=== PATIENT | male | born 1965 | race Caucasian/White ===

== ENCOUNTER 2018-03-18 11:27 | Emergency (ER) | payer MEDICARE, SELFPAY ==
[2018-03-18 11:28] VITALS: BP 194/111; PULSE 93; RESP 16; TEMP 37.1; O2SAT 99; BMI 59.3
[2018-03-18 11:51] LABS: Bedside Glucose 219 mg/dL (70-110)
[2018-03-18 12:35] LABS: Bacteria 0 SEEN /hpf (None Seen); Mucous, Urine 0 SEEN /hpf (<or=2+); Red Blood Cells-Urine 0 SEEN /hpf (0-5); Squamous Epithelial Cells - UA 0 SEEN /hpf (0-5); White Blood Cells 0 SEEN /hpf (0-5)
[2018-03-18] MEDS: morphine 8 MG/ML Syringe IV (12:42)
[2018-03-18] MEDS: Ondansetron 4 MG/2 ML Vial IV (12:42)
[2018-03-18 12:54] LABS: Color, Urine Yellow (Yellow); Glucose, Dipstick 50 mg/dl (Normal); Ketone-Dipstick Negative (Negative); Leukocyte Esterase-Dipstick Negative /ul (Negative); Nitrite-Dipstick Negative (Negative); Occult Blood-Urine Negative /ul (Negative); Protein-Dipstick Negative (Negative); Specific Gravity, Urine 1.015 (1.002-1.030); Urine Bilirubin Dipstick Negative (Negative); Urine Clarity Clear (Clear); Urine Urobilinogen Normal (Normal)
[2018-03-18 12:58] LABS: Anion Gap 9 (5-15); BUN 13 mg/dL (7-18); BUN/Creat Ratio 14.2 RATIO (10-20); Calcium,Total 9.1 mg/dL (8.5-10.1); Chloride 101 mmol/L (98-107); Creatinine, Serum 0.92 mg/dL (0.70-1.30); EST Glomerular Filtration Rate 93 mL/min (>60); Est Glom Filt Rate - Afr Amer 112 mL/min (>60); Estimated Creatinine Clearance 92.93 ml/min; Glucose 217 mg/dL (74-106); Potassium 4.4 mmol/L (3.5-5.1); Sodium Level 135 mmol/L (136-145)
--- NOTE | 2018-03-18 14:08 | ED.VISSUMM ---
- ER Visit Summary Date of Service: 03/18/18 Chief Complaint: Atraumatic right lower back pain History of Present Illness: The patient is a 52 M who presents with atraumatic right lower back pain that started 1 week ago. He denies bowel bladder dysfunction. He denies saddle paresthesia or anesthesia. He denies radicular pain. He denies foot drop. He denies weakness in his thigh muscles going up or down steps. Movement exacerbates his pain. He denies fever, chills or night sweats. He denies weight loss. He denies dysuria, frequency, urgency or hematuria. He denies rash or any skin lesions. Patient does have history of hypertension. States he is compliant with medication and diet. He denies headache. He denies ocular, visual auditory symptoms. Denies trouble with speech or swallowing. He denies cardiac respiratory symptoms. He denies nausea or vomiting. He denies problems with balance or walking. He denies clumsiness or problems with coordination. Physical Examination: Initial blood pressure was 222/122. Head is atraumatic normocephalic. Pupils are equal round reactive. Extraocular muscles are intact. There is no evidence of papilledema on funduscopic exam. TMs are pearly white with landmarks noted. Nares patent with no drainage. Posterior pharynx without erythema or exudate. Uvula is midline. There is no dysphonia or dysphasia. Trachea is midline. There is no stridor with auscultation of the neck. Heart is regular without murmur, gallop or rub. S1 and S2 are normal. Lungs are clear to auscultation with good movement of air bilaterally. Abdomen is soft nontender. Unable to assess for abdominal aneurysm because of body habitus. There is normal perianal sensation. Straight leg test is negative. DTRs at the patella and ankle are 1+ and symmetric. EHL is intact. There is no clonus or Babinski sign. There is reproducible right lower back pain. Test Results: Electrolyte panel is remarkable glucose of 212. Urinalysis unremarkable. There is no evidence of endorgan injury. Emergency Department Course and Treatment: IV was established he was medicated with morphine and Zofran. He was not given NSAIDs because of his medical problems. Treatment Plan: He was reassessed at 1405. Blood pressure has improved to 191/105. He was discharged with prescription for pain medicine and instructed to follow-up with his doctor for blood pressure recheck in 1 week. He was in informed the importance of weight reduction with regards to his overall health. Disposition: Discharged home in stable condition and improved Impression: 1. Right lower back pain without sciatica 2. Hypertension a somatic and a known hypertensive patient. 3. Hyperglycemia in a known type II diabetic This note was generated with [employer] dictation software. It may contain incorrect words, spelling, and punctuation that were not noted in review of the chart prior to signing ED Disposition - Plan for ED Patient: Disposition: Home or Assisted Living Chief Complaint: Back Instructions: ED HTN Established, ED Neck Back Pain General Prescriptions: Hydrocodone Bitart/Apap 5-325 [[place] 5MG-325MG] 1 tab PO Q6H PRN PRN 3 Days #10 tab PRN Reason: Pain Referrals: Care Physician,No Primary [Primary Care Provider] - Trina Matias [NON-STAFF] - Additional Instructions: Follow-up with your doctor to have your blood pressure rechecked in 1 week. It is in your best interest to lose weight over the next several months.
--- NOTE | 2018-03-18 14:12 | ED.DCSUM_ITS ---
- ER Visit Summary Date of Service: 03/18/18 Chief Complaint: Atraumatic right lower back pain History of Present Illness: The patient is a 52 M who presents with atraumatic right lower back pain that started 1 week ago. He denies bowel bladder dysfunction. He denies saddle paresthesia or anesthesia. He denies radicular pain. He denies foot drop. He denies weakness in his thigh muscles going up or down steps. Movement exacerbates his pain. He denies fever, chills or night sweats. He denies weight loss. He denies dysuria, frequency, urgency or hematuria. He denies rash or any skin lesions. Patient does have history of hypertension. States he is compliant with medication and diet. He denies headache. He denies ocular, visual auditory symptoms. Denies trouble with speech or swallowing. He denies cardiac respiratory symptoms. He denies nausea or vomiting. He denies problems with ba greg or walking. He denies clumsiness or problems with coordination. Physical Examination: Initial blood pressure was 222/122. Head is atraumatic normocephalic. Pupils are equal round reactive. Extraocular muscles are intact. There is no evidence of papilledema on funduscopic exam. TMs are pearly white with landmarks noted. Nares patent with no drainage. Posterior ph arynx without erythema or exudate. Uvula is midline. There is no dysphonia or dysphasia. Trachea is midline. There is no stridor with auscultation of the neck. Heart is regular without murmur, gallop or rub. S1 and S2 are normal. Lungs are clear to auscultation with good movement of air bilaterally. Abdomen is soft nontender. Unable to assess for abdominal aneurysm because of body habitus. There is normal perianal sensation. Straight leg test is negative. DTRs at the patella and ankle are 1+ and symmetric. EHL is intact. There is no clonus or Babinski sign. There is reproducible right lower back pain. Test Results: Electrolyte panel is remarkable glucose of 212. Urinalysis unremarkable. There is no evidence of endorgan injury. Emergency Department Course and Treatment: IV was established he was medicated with morphine and Zofran. He was not given NSAIDs because of his medical problems. Treatment Plan: He was reassessed at 1405. Blood pressure has improved to 191/105. He was discharged with prescription for pain medicine and instructed to follow-up with his doctor for blood pressure recheck in 1 week. He was in informed the importance of weight reduction with regards to his overall health. Disposition: Discharged home in stable condition and improved Impression: 1. Right lower back pain without sciatica 2. Hypertension a somatic and a known hypertensive patient. 3. Hyperglycemia in a known type II diabetic This note was generated with [employer] dictation software. It may contain incorrect words, spelling, and punctuation that were not noted in review of the chart prior to signing ED Disposition - Plan for ED Patient: Disposition: Home or Assisted Living Chief Complaint: Back Instructions: ED HTN Established, ED Neck Back Pain General Prescriptions: Hydrocodone Bitart/Apap 5-325 [[place] 5MG-325MG] 1 tab PO Q6H PRN PRN 3 Days #10 tab PRN Reason: Pain Referrals: Care Physician,No Primary [Primary Care Provider] - Trina Matias [NON-STAFF] - Additional Instructions: Follow-up with your doctor to have your blood pressure rechecked in 1 week. It is in your best interest to lose weight over the next several months.
[2018-03-18 14:36] VITALS: BP 129/85; PULSE 70; RESP 17; O2SAT 95
--- NOTE | 2018-03-18 14:37 | ED.RN ---
IV DC'ED, CATHETER INTACT, SMALL GAUZE DRESSING PLACED. DISCHARGE INSTRUCTIONS GIVEN TO AND REVIEWED WITH PATIENT, PATIENT DENIES QUESTIONS OR CONCERNS AND VOICES UNDERSTANDING OF DISCHARGE INSTRUCTIONS. PT AMBULATES OUT OF ROOM WITHOUT DIFFICULTY.
--- OUTSIDE RECORDS SUMMARY | 2018-04-30 03:38 | XMS RPT_ITS ---
:1965 Author Organization [facility] Support Name Relationship Address Phone PATRICIA, HARSHA Unavailable Unavailable + PATRICIA, HARSHA Unavailable Unavailable + PATRICIA, HARSHA Unavailable Unavailable + PATRICIA, HARSHA Unavailable Unavailable + PATRICIA, HARSHA Unavailable Unavailable + PATRICIA, HARSHA Unavailable Unavailable + D Unavailable Unavailable Unavailable CHRISTINE HENRY Unavailable [address] + [place] [address] PATRICIA, HARSHA Unavailable Unavailable + PATRICIA, HARSHA Unavailable Unavailable + PATRICIA, HARSHA Unavailable Unavailable + PATRICIA, HARSHA Unavailable Unavailable + PATRICIA, HARSHA Unavailable Unavailable + PATRICIA, HARSHA Unavailable Unavailable + PATRICIA, HARSHA Unavailable Unavailable + PATRICIA, HARSHA Unavailable Unavailable + PATRICIA, HARSHA Unavailable Unavailable + PATRICIA, HARSHA Unavailable Unavailable + PATRICIA, HARSHA Unavailable Unavailable + PATRICIA, HARSHA Unavailable Unavailable + PATRICIA, HARSHA Unavailable Unavailable + PATRICIA, HARSHA Unavailable Unavailable + PATRICIA, HARSHA Unavailable Unavailable + PATRICIA, HARSHA Unavailable Unavailable + PATRICIA, HARSHA Unavailable Unavailable + HARSHA GOMEZ Unavailable Unavailable + Care Team Providers Name Role Phone DESIRAE BHAGAT CNP Attending Unavailable Javier MARTINEZ DO Primary Care Unavailable DESIRAE HBAGAT CNP Attending Unavailable Javier MARTINEZ DO Primary Care Unavailable Susan Wilkerson MD Attending Unavailable Javier MARTINEZ DO Primary Care Unavailable DESIRAE BHAGAT CNP Attending Unavailable Javier MARTINEZ DO Primary Care Unavailable DESIRAE BHAGAT CNP Attending Unavailable Javier MARTINEZ DO Primary Care Unavailable DESIRAE BHAGAT CNP Attending Unavailable Javier MARTINEZ DO Primary Care Unavailable DESIRAE BHAGAT CNP Attending Unavailable Javier MARTINEZ DO Primary Care Unavailable DESIRAE BHAGAT CNP Attending Unavailable Javier MARTINEZ DO Primary Care Unavailable Primay Care Physicia, No Primary Care Unavailable Torres, Rey Attending Unavailable PROBLEMS PROBLEMS DATE TYPE CONDITION / CODE ATTENDING STATUS SOURCE 03/18/2018 Unknown M54.5 - Low back Torres, Rey Active [facility] M54.5(ICD-10) Hospital Repository 04/25/2017 Admitting Hypothyroidism, OLAYINKA WHIP SAWYER, Active [facility] Diagnosis unspecified / DESIRAE Bermudez Nohemi E03.9(ICD-10) Repository 04/25/2017 Admitting Hyperlipidemia, OLAYINKA WHIP SAWYER, Active [facility] Diagnosis unspecified / DESIRAE Bermudez Nohemi E78.5(ICD-10) Repository 04/25/2017 Admitting Essential OLAYINKA WHIP SAWYER, 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 No known injury.. COMPARISON: Lumbar radiographs, 04/01/2018 FINDINGS: AP, lateral, and swimmer's views of the thoracic spine were acquired. There is mild straightening of the thoracic kyphosis without scoliosis. Vertebral body heights are within normal limits. T here is mild multilevel thoracic spondylosis, greatest in the lower thoracic spine, where there is anterior endplate osteophyte formation. Vacuum phenomenon is identified at the L1-L2 level. IMPRESSION: No compression deformity or significant listhesis. Straightening of the thoracic kyphosis may be positional or related to muscular spasm. I have personally reviewed the images of this examination and agree with the resident's findings and interpretation. Interpreted By: Jonah Mena MD Preliminary Report By: Reza Starkey MD Electronically Signed By: Jonah Mena MD Dictated Date: 04/01/2018 2:08:44 PM Prelim Date: 04/01/2018 4:17:00 PM Sign Date: 04/01/2018 4:28:11 PM XR SPINE LUMBAR Observed: 04/01/2018 Status: F Source: [facility] AP/LAT 12:04 PM [facility] REPOSITORY ORIGINAL XR SPINE LUMBAR AP/LAT CLINICAL STATEMENT: pain COMPARISON: None FINDINGS:5 lumbar type vertebral bodies are present. Vertebral body height is maintained. There is moderate degenerative change at L1-L2 with disc space narrowing and hypertrophic bone formation. There are facet degenerative changes present at the lumbosacral junction. IMPRESSION:Degenerative changes Interpreted By: Kaykay Pineda MD Preliminary Report By: Kaykay Pineda MD Electronically Signed By: Kaykay Pineda MD Dictated Date: 04/01/2018 1:43:50 PM Prelim Date: 04/01/2018 1:43:50 PM Sign Date: 04/01/2018 1:44:13 PM CBC Collected: 03/25/2018 Status: F Source: [place] 9:40 AM [facility] REPOSITORY TYPE CODE TESTS RESULT OUT OF REFERENCE UNITS RANGE LAB WBC(LOINC) 4.60-10.80 10 3/mcL WBC 8.20 LAB RBCCT(LOINC 4.04-6.13 10 6/mcL ) RBC 4.84 LAB HGB(LOINC) 14.0-18.0 G/dL Hgb 15.1 LAB HCT(LOINC) 42.0-52.0 % Hct 45.3 LAB MCV(LOINC) 80.0-94.0 fL MCV 93.5 LAB MCH(LOINC) 27.0-31.2 pg MCH 31.1 LAB MCHC(LOINC) 31.8-35.4 G/dL MCHC 33.3 LAB RDW(LOINC) 11.5-14.5 % RDW 13.1 LAB PLT(LOINC) 130-400 10 3/mcL Platelet 253 LAB MPV(LOINC) 7.4-10.4 fL High MPV 10.7 Performed By: #### CBC, ADIFF, ANEU #### [address] [address] #### TSH, FT4, LIPID, CMP, GFR #### [address] [address] .AUTO DIFF Collected: 03/25/2018 Status: F Source: [facility] 9:40 AM [facility] REPOSITORY TYPE CODE TESTS RESULT OUT OF REFERENCE UNITS RANGE LAB MARILU(LOINC) 37.0-80.0 % Neutrophil % 57.0 LAB LYM(LOINC) 10.0-50.0 % Lymphocyte % 30.6 LAB MON(LOINC) 1.7-13.0 % Monocyte % 7.5 LAB EO(LOINC) 0.0-7.0 % Eosinophil % 4.2 LAB BAS(LOINC) 0.0-2.5 % Basophil % 0.7 LAB ABLYM(LOIN 0.77-3.85 10 3/mcL C) Lymphocyte, 2.50 Absolute LAB ANGIE(LOINC 0.15-1.00 10 3/mcL ) Monocyte, 0.60 Absolute LAB AEOS(LOINC 0.00-0.40 10 3/mcL ) Eosinophil, 0.30 Absolute LAB ABAS(LOINC 0.00-0.19 10 3/mcL ) Basophil, 0.10 Absolute Performed By: #### CBC, ADIFF, ANEU #### [address] [address] #### TSH, FT4, LIPID, CMP, GFR #### [address] [address] .NEUABS Collected: 03/25/2018 Status: F Source: [facility] 9:40 AM [facility] REPOSITORY TYPE CODE TESTS RESULT OUT OF REFERENCE UNITS RANGE LAB ANEU(LOINC) 2.85-6.16 10 3/mcL Neutrophil, 4.60 Absolute Performed By: #### CBC, ADIFF, ANEU #### [address] [address] #### TSH, FT4, LIPID, CMP, GFR #### [address] [address] TSH Collected: 03/25/2018 Status: F Source: [facility] 9:40 AM [facility] REPOSITORY TYPE CODE TESTS RESULT OUT OF RANGE REFERENCE UNITS LAB TSH(LOINC) 0.36-3.74 mcIU/mL High TSH 31.04 Performed By: #### CBC, ADIFF, ANEU #### [address] [address] #### TSH, FT4, LIPID, CMP, GFR #### [place] [address] FT4 Collected: 03/25/2018 Status: F Source: [facility] 9:40 AM [facility] REPOSITORY TYPE CODE TESTS RESULT OUT OF RANGE REFERENCE UNITS LAB FT4(LOINC) 0.76-1.46 ng/dL Free T4 0.96 Performed By: #### CBC, ADIFF, ANEU #### [address] [address] #### TSH, FT4, LIPID, CMP, GFR #### [place] [address] LIPID Collected: 03/25/2018 Status: F Source: [facility] 9:40 AM [facility] REPOSITORY TYPE CODE TESTS RESULT OUT OF REFERENCE UNITS RANGE LAB CHOL(LOINC 0-200 mg/dL ) Cholesterol High 277 Result Comment: Cholesterol Reference Interval: Less than 200 Desirable 200-239 Borderline high risk 240 and above High risk LAB TRIG(LOINC) 0-150 mg/dL Triglycerides High 287 Result Comment: Triglyceride Reference Interval: Less than 150 Normal 150-199 Borderline high risk 200-499 High risk 500 or higher Very high risk LAB HD(LOINC) 40-60 mg/dL HDL Cholesterol 49 LAB LDL(LOINC) 0-130 mg/dL LDL High Cholesterol 171 Performed By: #### CBC, ADIFF, ANEU #### [address] [address] #### TSH, FT4, LIPID, CMP, GFR #### [place] [address] CMP Collected: 03/25/2018 Status: F Source: [facility] 9:40 AM [facility] REPOSITORY TYPE CODE TESTS RESULT OUT OF REFERENCE UNITS RANGE LAB GLU(LOINC) 70-105 mg/dL Glucose High Level 217 LAB NA(LOINC) 136-145 mmol/L Low Sodium Level 135 LAB K(LOINC) 3.5-5.1 mmol/L Potassium Level 4.9 LAB CL(LOINC) 98-107 mmol/L Chloride 99 LAB CO2(LOINC) 22-29 mmol/L CO2 28 LAB EBAL(LOINC mEq/L ) Electrolyte Balance 8.0 LAB BUN(LOINC) 7-18 mg/dL BUN 15 LAB CRE(LOINC) 0.70-1.30 mg/dL Creatinine Lvl (s) 0.94 LAB BC(LOINC) 7-27 ratio BUN/Creatinine 16 Ratio LAB CA(LOINC) 8.4-10.2 mg/dL Calcium Lvl 9.2 LAB PROT(LOINC 6.4-8.2 G/dL ) Total Protein 7.3 LAB ALB(LOINC) 3.5-5.0 G/dL Albumin Level 3.8 LAB GLB(LOINC) G/dL Globulin 3.5 LAB AG(LOINC) 1.1-2.5 ratio A/G Ratio 1.1 LAB BILT(LOINC 0.2-1.0 mg/dL ) Bili Total 0.3 LAB AP(LOINC) 40-135 U/L Alk Phos High 140 LAB AST(LOINC) 10-40 U/L AST/SGOT High 44 LAB ALT(LOINC) 10-35 U/L ALT/SGPT High 74 Performed By: #### CBC, ADIFF, ANEU #### [address] [address] #### TSH, FT4, LIPID, CMP, GFR #### [address] [address] .GFR Collected: 03/25/2018 Status: F Source: [facility] 9:40 AM [facility] REPOSITORY TYPE CODE TESTS RESULT OUT OF REFERENCE UNITS RANGE LAB GFRAA(LOINC ml/min/1.73 ) sqm GFR 103 [place] Result Comment: GFR Population mean for , Non- Americans Ages 20-29 = 116 mL/min/1.73 sq.m. Ages 30-39 = 107 mL/min/1.73 sq.m. Ages 40-49 = 99 mL/min/1.73 sq.m. Ages 50-59 = 93 mL/min/1.73 sq.m. Ages 60-69 = 85 mL/min/1.73 sq.m. Ages 70+ = 75 mL/min/1.73 sq.m. Chronic Kidney Disease: Less than 60 mL/min/1.73 square meters End Stage Renal Disease: Less than 15 mL/min/1.73 square meters LAB GFRNO(LOINC) ml/min/1.73sqm GFR Non- 85 Result Comment: GFR Population mean for , Non- Americans Ages 20-29 = 116 mL/min/1.73 sq.m. Ages 30-39 = 107 mL/min/1.73 sq.m. Ages 40-49 = 99 mL/min/1.73 sq.m. Ages 50-59 = 93 mL/min/1.73 sq.m. Ages 60-69 = 85 mL/min/1.73 sq.m. Ages 70+ = 75 mL/min/1.73 sq.m. Chronic Kidney Disease: Less than 60 mL/min/1.73 square meters End Stage Renal Disease: Less than 15 mL/min/1.73 square meters Performed By: #### CBC, ADIFF, ANEU #### [address] [address] #### TSH, FT4, LIPID, CMP, GFR #### [address] [address] EMERGENCY DEPARTMENT Observed: 03/18/2018 Status: F Source: [place] SUMMARY 2:28 PM [facility] REPOSITORY [facility] Medical Records Department [address] [place] [id number] Emergency Department Summary 03/18/18 1408 MR#: [id number] Acct: [id number] Name: CARLTON GOMEZ Rep #: [id number] : 1965 52 From: Rey Torres MD PCP: Care Physician, No Primary Status: REG ER - ER Visit Summary Date of Service: 03/18/18 Chief Complaint: Atraumatic right lower back pain History of Present Illness: The patient is a 52 M who presents with atraumatic right lower back pain that started 1 week ago. He denies bowel bladder dysfunction. He denies saddle paresthesia or anesthesia. He denies radicular pain. He denies foot drop. He denies weakness in his thigh muscles going up or down steps. Movement exacerbates his pain. He denies fever, chills or night sweats. He denies weight loss. He denies dysuria, frequency, urgency or hematuria. He denies rash or any skin lesions. Patient does have history of hypertension. States he is compliant with medication and diet. He denies headache. He denies ocular, visual auditory symptoms. Denies trouble with speech or swallowing. He denies cardiac respiratory symptoms. He denies nausea or vomiting. He denies problems with balance or walking. He denies clumsiness or problems with coordination. Physical Examination: Initial blood pressure was 222/122. Head is atraumatic normocephalic. Pupils are equal round reactive. Extraocular muscles are intact. There is no evidence of papilledema on funduscopic exam. TMs are pearly white with landmarks noted. Nares patent with no drainage. Posterior pharynx without erythema or exudate. Uvula is midline. There is no dysphonia or dysphasia. Trachea is midline. There is no stridor with auscultation of the neck. Heart is regular without murmur, gallop or rub. S1 and S2 are normal. Lungs are clear to auscultation with good movement of air bilaterally. Abdomen is soft nontender. Unable to assess for abdominal aneurysm because of body habitus. There is normal perianal sensation. Straight leg test is negative. DTRs at the patella and ankle are 1+ and symmetric. EHL is intact. There is no clonus or Babinski sign. There is reproducible right lower back pain. Test Results: Electrolyte panel is remarkable glucose of 212. Urinalysis unremarkable. There is no evidence of endorgan injury. Emergency Department Course and Treatment: IV was established he was medicated with morphine and Zofran. He was not given NSAIDs because of his medical problems. Treatment Plan: He was reassessed at 1405. Blood pressure has improved to 191/105. He was discharged with prescription for pain medicine and instructed to follow-up with his doctor for blood pressure recheck in 1 week. He was in informed the importance of weight reduction with regards to his overall health. Disposition: Discharged home in stable condition and improved Impression: 1. Right lower back pain without sciatica 2. Hypertension a somatic and a known hypertensive patient. 3. Hyperglycemia in a known type II diabetic This note was generated with [employer] dictation software. It may contain incorrect words, spelling, and punctuation that were not noted in review of the chart prior to signing ED Disposition - Plan for ED Patient: Disposition: Home or Assisted Living Chief Complaint: Back Instructions: ED HTN Established, ED Neck Back Pain General Prescriptions: Hydrocodone Bitart/Apap 5-325 [Powell 5MG-325MG] 1 tab PO Q6H PRN PRN 3 Days #10 tab PRN Reason: Pain Referrals: Care Physician,No Primary [Primary Care Provider] - Trina Matias [NON-STAFF] - Additional Instructions: Follow-up with your doctor to have your blood pressure rechecked in 1 week. It is in your best interest to lose weight over the next several months. What to do if you have Problems For any increased pain, shortness of breath, bleeding, nausea or vomiting, chest pain, or any unexpected problems, contact your Primary Care Provider. Call [facility] ([phone]) or report to the closest Emergency Room. Call 911 if necessary. 03/18/18 1428 <Electronically signed by Rey Torres MD> Date Rey Torres MD Cosigner Signature (If Indicated): Date CC: No Primary Care Physician; Trina Matias URINALYSIS, COMPLETE Collected: 03/18/2018 Status: F Source: [place] 12:27 PM [facility] REPOSITORY Order Comment: Order Date: 03/18/18 Has pt arrived? Y How was Urine Obtained? CLEAN CATCH TYPE CODE TESTS RESULT OUT OF RANGE REFERENCE UNITS LAB L400.3000 Yellow COLOR Normal Yellow LAB L400.3050 Clear Normal CLARITY Clear LAB L400.3200 Normal mg/dl High 50 GLUCOSE, UR LAB L400.3300 Negative mg/dL Normal BILIRUBIN URINE Negative LAB L400.3400 Negative mg/dl Normal KETONE UR Negative LAB L400.3465 1.002-1.030 Normal SP.GR. DIPSTX 1.015 LAB L400.3550 5.0 - 8.0 pH UR Normal 5.0 LAB L400.3600 Negative mg/dl PROT Normal DIPSTX Negative LAB L400.3700 Normal mg/dl Normal UROBILI Normal LAB L400.3750 Negative Normal NITRITE UR Negative LAB L400.3780 Negative /ul Normal OCCULT BLOOD-UR Negative LAB L400.3800 Negative /ul LEUK Normal ESTERASE Negative LAB L400.4050 0-5 /hpf WBC 0 Normal SEEN LAB L400.4100 0-5 /hpf 0 Normal RBC-UA SEEN LAB L400.4150 0-5 /hpf SQUAM 0 Normal EPI SEEN LAB L400.4300 None Seen /hpf 0 Normal BACTERIA SEEN LAB L400.4350 <or=2+ /hpf 0 Normal MUCUS, URINE SEEN Performed By: #### L400.0001 #### [facility] [address] [place], [address] BASIC METABOLIC Collected: 03/18/2018 Status: F Source: [place] PROFILE (BMP) 12:27 PM [facility] REPOSITORY TYPE CODE TESTS RESULT OUT OF RANGE REFERENCE UNITS LAB L501.0100 74-106 mg/dL High GLU 217 Result Comment: Glucose result greater than or equal to 200 mg/dL suggests DIABETES MELLITUS per A.D.A. criteria. Please note revised GLUCOSE reference range effective 2017. LAB L501.1000 7-18 mg/dL Normal BUN 13 LAB L501.1100 0.70-1.30 mg/dL Normal CREAT,SERUM 0.92 Result Comment: The validity of the calculated GFR AND GFRAA in patients over 70 years has not been determined. Clinical correlation is essential. LAB L501.1110 >60 mL/min Normal EST GFR 93 Result Comment: Non- GFR Calc LAB L501.1115 >60 mL/min Normal EST GFR - AA 112 Result Comment: GFR Calc LAB L501.1255 ml/min Normal Estimated CRCL 92.93 LAB L501.1300 10-20 RATIO Normal BUN/CRE 14.2 LAB L501.2200 8.5-10 mg/dL Normal .1 CA 9.1 LAB L501.5300 136-14 mmol/L Low 5 NA 135 LAB L501.5600 3.5-5. mmol/L Normal 1 K 4.4 Result Comment: Slight Hemolysis, Result may be falsely increased. LAB L501.5900 98-107 mmol/L Normal CL 101 LAB L501.6100 21.0-32.0 mmol/L Normal CO2 25.0 LAB L501.6200 5-15 Normal 9 GAP Performed By: #### L500.2500 #### [facility] [address] [place], [place], [address] BEDSIDE GLUCOSE Collected: 03/18/2018 Status: F Source: [place] 11:42 AM [facility] REPOSITORY TYPE CODE TESTS RESULT OUT OF REFERENCE UNITS RANGE LAB L501.080 70-110 mg/dL High BEDSIDE GLU 219 Result Comment: MANAGEMENT OF PATIENT CARE PER NURSING PROTOCOL Performed By: #### L501.080 #### [facility] Point of Care [address] [place], [place] [id number] CBC Collected: 12/12/2017 Status: F Source: [facility] 9:20 AM [facility] REPOSITORY TYPE CODE TESTS RESULT OUT OF REFERENCE UNITS RANGE LAB WBC(LOINC) 4.60-10.80 10 3/mcL WBC 10.50 LAB RBCCT(LOINC 4.04-6.13 10 6/mcL ) RBC 4.93 LAB HGB(LOINC) 14.0-18.0 G/dL Hgb 15.3 LAB HCT(LOINC) 42.0-52.0 % Hct 45.4 LAB MCV(LOINC) 80.0-94.0 fL MCV 91.9 LAB MCH(LOINC) 27.0-31.2 pg MCH 31.1 LAB MCHC(LOINC) 31.8-35.4 G/dL MCHC 33.8 LAB RDW(LOINC) 11.5-14.5 % RDW 13.7 LAB PLT(LOINC) 130-400 10 3/mcL Platelet 319 LAB MPV(LOINC) 7.4-10.4 fL MPV 10.0 Performed By: #### CBCELISA ANEU #### [address] [address] #### CMP, LIPID, GFR, TSH, FT4 #### [place] [address] .AUTO DIFF Collected: 12/12/2017 Status: F Source: [facility] 9:20 AM [facility] REPOSITORY TYPE CODE TESTS RESULT OUT OF REFERENCE UNITS RANGE LAB MARILU(LOINC) 37.0-80.0 % Neutrophil % 52.9 LAB LYM(LOINC) 10.0-50.0 % Lymphocyte % 34.8 LAB MON(LOINC) 1.7-13.0 % Monocyte % 8.6 LAB EO(LOINC) 0.0-7.0 % Eosinophil % 2.7 LAB BAS(LOINC) 0.0-2.5 % Basophil % 1.0 LAB ABLYM(LOIN 0.77-3.85 10 3/mcL C) Lymphocyte, 3.60 Absolute LAB ANGIE(LOINC 0.15-1.00 10 3/mcL ) Monocyte, 0.90 Absolute LAB AEOS(LOINC 0.00-0.40 10 3/mcL ) Eosinophil, 0.30 Absolute LAB ABAS(LOINC 0.00-0.19 10 3/mcL ) Basophil, 0.10 Absolute Performed By: #### CBC, ADIFF, ANEU #### [place] [address] #### CMP, LIPID, GFR, TSH, FT4 #### [place] [address] .NEUABS Collected: 12/12/2017 Status: F Source: [facility] 9:20 AM [facility] REPOSITORY TYPE CODE TESTS RESULT OUT OF REFERENCE UNITS RANGE LAB ANEU(LOINC) 2.85-6.16 10 3/mcL Neutrophil, 5.60 Absolute Performed By: #### CBC, ADIFF, ANEU #### [address] [address] #### CMP, LIPID, GFR, TSH, FT4 #### [place] [address] CMP Collected: 12/12/2017 Status: F Source: [facility] 9:20 AM [facility] REPOSITORY TYPE CODE TESTS RESULT OUT OF REFERENCE UNITS RANGE LAB GLU(LOINC) 70-105 mg/dL Glucose High Level 161 LAB NA(LOINC) 136-145 mmol/L Sodium Level 139 LAB K(LOINC) 3.5-5.1 mmol/L Potassium Level 5.0 LAB CL(LOINC) 98-107 mmol/L Chloride 101 LAB CO2(LOINC) 22-29 mmol/L CO2 28 LAB EBAL(LOINC mEq/L ) Electrolyte Balance 10.0 LAB BUN(LOINC) 7-18 mg/dL BUN 17 LAB CRE(LOINC) 0.70-1.30 mg/dL Creatinine Lvl (s) 0.99 LAB BC(LOINC) 7-27 ratio BUN/Creatinine 17 Ratio LAB CA(LOINC) 8.4-10.2 mg/dL Calcium Lvl 9.8 LAB PROT(LOINC 6.4-8.2 G/dL ) Total Protein 7.4 LAB ALB(LOINC) 3.5-5.0 G/dL Albumin Level 3.9 LAB GLB(LOINC) G/dL Globulin 3.5 LAB AG(LOINC) 1.1-2.5 ratio A/G Ratio 1.1 LAB BILT(LOINC 0.2-1.0 mg/dL ) Bili Total 0.5 LAB AP(LOINC) 40-135 U/L Alk Phos 126 LAB AST(LOINC) 10-40 U/L AST/SGOT 28 LAB ALT(LOINC) 10-35 U/L ALT/SGPT High 52 Performed By: #### CBC, ADIFF, ANEU #### [address] [address] #### CMP, LIPID, GFR, TSH, FT4 #### [address] [address] LIPID Collected: 12/12/2017 Status: F Source: [facility] 9:20 AM [facility] REPOSITORY TYPE CODE TESTS RESULT OUT OF REFERENCE UNITS RANGE LAB CHOL(LOINC 0-200 mg/dL ) Cholesterol High 246 Result Comment: Cholesterol Reference Interval: Less than 200 Desirable 200-239 Borderline high risk 240 and above High risk LAB TRIG(LOINC) 0-150 mg/dL Triglycerides High 246 Result Comment: Triglyceride Reference Interval: Less than 150 Normal 150-199 Borderline high risk 200-499 High risk 500 or higher Very high risk LAB HD(LOINC) 40-60 mg/dL HDL Cholesterol 51 LAB LDL(LOINC) 0-130 mg/dL LDL High Cholesterol 146 Performed By: #### CBC, ADIFF, ANEU #### [place] [id number] [place], [place] [address] #### CMP, LIPID, GFR, TSH, FT4 #### [address] [address] .GFR Collected: 12/12/2017 Status: F Source: [facility] 9:20 AM [facility] REPOSITORY TYPE CODE TESTS RESULT OUT OF REFERENCE UNITS RANGE LAB GFRAA(LOINC ml/min/1.73 ) sqm GFR 97 [place] Result Comment: GFR Population mean for , Non- Americans Ages 20-29 = 116 mL/min/1.73 sq.m. Ages 30-39 = 107 mL/min/1.73 sq.m. Ages 40-49 = 99 mL/min/1.73 sq.m. Ages 50-59 = 93 mL/min/1.73 sq.m. Ages 60-69 = 85 mL/min/1.73 sq.m. Ages 70+ = 75 mL/min/1.73 sq.m. Chronic Kidney Disease: Less than 60 mL/min/1.73 square meters End Stage Renal Disease: Less than 15 mL/min/1.73 square meters LAB GFRNO(LOINC) ml/min/1.73sqm GFR Non- 80 Result Comment: GFR Population mean for , Non- Americans Ages 20-29 = 116 mL/min/1.73 sq.m. Ages 30-39 = 107 mL/min/1.73 sq.m. Ages 40-49 = 99 mL/min/1.73 sq.m. Ages 50-59 = 93 mL/min/1.73 sq.m. Ages 60-69 = 85 mL/min/1.73 sq.m. Ages 70+ = 75 mL/min/1.73 sq.m. Chronic Kidney Disease: Less than 60 mL/min/1.73 square meters End Stage Renal Disease: Less than 15 mL/min/1.73 square meters Performed By: #### CBC, ADIFF, ANEU #### [place] [id number] [place], [place] [address] #### CMP, LIPID, GFR, TSH, FT4 #### [address] [address] TSH Collected: 12/12/2017 Status: F Source: [facility] 9:20 AM [facility] REPOSITORY TYPE CODE TESTS RESULT OUT OF RANGE REFERENCE UNITS LAB TSH(LOINC) 0.36-3.74 mcIU/mL High TSH 26.90 Performed By: #### CBC, ADIFF, ANEU #### [address] [address] #### CMP, LIPID, GFR, TSH, FT4 #### [address] [address] FT4 Collected: 12/12/2017 Status: F Source: [facility] 9:20 AM [facility] REPOSITORY TYPE CODE TESTS RESULT OUT OF RANGE REFERENCE UNITS LAB FT4(LOINC) 0.76-1.46 ng/dL Free T4 0.89 Performed By: #### CBC, ADIFF, ANEU #### [address] [address] #### CMP, LIPID, GFR, TSH, FT4 #### [address] [address] .GFR Collected: 07/25/2017 Status: F Source: [facility] 9:35 AM [facility] REPOSITORY TYPE CODE TESTS RESULT OUT OF REFERENCE UNITS RANGE LAB GFRAA(LOINC ml/min/1.73 ) sqm GFR 86 [place] Result Comment: GFR Population mean for , Non- Americans Ages 20-29 = 116 mL/min/1.73 sq.m. Ages 30-39 = 107 mL/min/1.73 sq.m. Ages 40-49 = 99 mL/min/1.73 sq.m. Ages 50-59 = 93 mL/min/1.73 sq.m. Ages 60-69 = 85 mL/min/1.73 sq.m. Ages 70+ = 75 mL/min/1.73 sq.m. Chronic Kidney Disease: Less than 60 mL/min/1.73 square meters End Stage Renal Disease: Less than 15 mL/min/1.73 square meters LAB GFRNO(LOINC) ml/min/1.73sqm GFR Non- >60 Result Comment: GFR Population mean for , Non- Americans Ages 20-29 = 116 mL/min/1.73 sq.m. Ages 30-39 = 107 mL/min/1.73 sq.m. Ages 40-49 = 99 mL/min/1.73 sq.m. Ages 50-59 = 93 mL/min/1.73 sq.m. Ages 60-69 = 85 mL/min/1.73 sq.m. Ages 70+ = 75 mL/min/1.73 sq.m. Chronic Kidney Disease: Less than 60 mL/min/1.73 square meters End Stage Renal Disease: Less than 15 mL/min/1.73 square meters Performed By: #### GFR, CMP, LIPID, CBC, ADIFF, ANEU, TSH #### [address] [address] CMP Collected: 07/25/2017 Status: F Source: [facility] 9:35 AM FOUNDATION REPOSITORY TYPE CODE TESTS RESULT OUT OF REFERENCE UNITS RANGE LAB 1547-9 70-105 mg/dL GLUCOSE High 154 LAB NA(LOINC) 136-146 mEq/L Sodium Level 139 LAB K(LOINC) 3.5-5.1 mEq/L Potassium Level 4.6 LAB CL(LOINC) 98-107 mEq/L Chloride 100 LAB CO2(LOINC) 22-29 mEq/L CO2 27 LAB EBAL(LOINC mEq/L ) Electrolyte Balance 12.0 LAB BUN(LOINC) 7.0-18.0 mg/dL BUN 17.8 LAB CRE(LOINC) 0.6-1.2 mg/dL Creatinine Lvl (s) 1.1 LAB BC(LOINC) 7-27 ratio BUN/Creatinine 16 Ratio LAB CA(LOINC) 8.4-10.2 mg/dL Calcium Lvl 10.0 LAB PROT(LOINC 6.0-8.3 G/dL ) Total Protein 7.1 LAB ALB(LOINC) 3.5-5.0 G/dL Albumin Level 4.3 LAB GLB(LOINC) G/dL Globulin 2.8 LAB AG(LOINC) 1.1-2.5 ratio A/G Ratio 1.5 LAB BILT(LOINC 0.2-1.0 mg/dL ) Bili Total 0.4 LAB AP(LOINC) 40-135 IU/L Alk Phos 130 LAB AST(LOINC) 10-40 IU/L AST/SGOT 27 LAB ALT(LOINC) 10-35 IU/L ALT/SGPT 35 Performed By: #### GFR, CMP, LIPID, CBC, ADIFF, ANEU, TSH #### [address] [place], [place] [address] LIPID Collected: 07/25/2017 Status: F Source: [facility] 9:35 AM [facility] REPOSITORY TYPE CODE TESTS RESULT OUT OF REFERENCE UNITS RANGE LAB CHOL(LOINC 131-200 mg/dL ) Cholesterol High 212 Result Comment: Cholesterol Reference Interval: Less than 200 Desirable 200-239 Borderline high risk 240 and above High risk LAB TRIG(LOINC) 40-150 mg/dL Triglycerides High 181 Result Comment: Triglyceride Reference Interval: Less than 150 Normal 150-199 Borderline high risk 200-499 High risk 500 or higher Very high risk LAB HD(LOINC) 35-90 mg/dL HDL Cholesterol 55 Result Comment: HDL Reference Interval: Less than 40 Low - high risk 60 or above Optimal/lowers risk LAB LDL(LOINC) 0-130 mg/dL LDL Cholesterol 121 Result Comment: LDL is a calculated result and requires a 12-hr fast. LDL Reference Interval: Less than 100 Optimal 100-129 Near or above optimal 130-159 Borderline high risk 160-189 High risk 190 and above Very high risk Performed By: #### GFR, CMP, LIPID, CBC, ADIFF, ANEU, TSH #### [address] [place], [place] [address] CBC Collected: 07/25/2017 Status: F Source: [facility] 9:35 AM [facility] REPOSITORY TYPE CODE TESTS RESULT OUT OF REFERENCE UNITS RANGE LAB WBC(LOINC) 4.60-10.80 10 3/mcL WBC 8.20 LAB RBCCT(LOINC 4.04-6.13 10 6/mcL ) RBC 5.01 LAB HGB(LOINC) 14.0-18.0 G/dL Hgb 15.4 LAB HCT(LOINC) 42.0-52.0 % Hct 45.8 LAB MCV(LOINC) 80.0-94.0 fL MCV 91.3 LAB MCH(LOINC) 27.0-31.2 pg MCH 30.6 LAB MCHC(LOINC) 31.8-35.4 G/dL MCHC 33.6 LAB RDW(LOINC) 11.5-14.5 % RDW 13.0 LAB PLT(LOINC) 130-400 10 3/mcL Platelet 302 LAB MPV(LOINC) 7.4-10.4 fL High MPV 10.5 Performed By: #### GFR, CMP, LIPID, CBC, ADIFF, ANEU, TSH #### [place] [address] [place], [place] [address] .AUTO DIFF Collected: 07/25/2017 Status: F Source: [facility] 9:35 AM [facility] REPOSITORY TYPE CODE TESTS RESULT OUT OF REFERENCE UNITS RANGE LAB MARILU(LOINC) 37.0-80.0 % Neutrophil % 54.8 LAB LYM(LOINC) 10.0-50.0 % Lymphocyte % 31.8 LAB MON(LOINC) 1.7-13.0 % Monocyte % 9.5 LAB EO(LOINC) 0.0-7.0 % Eosinophil % 3.2 LAB BAS(LOINC) 0.0-2.5 % Basophil % 0.7 LAB ABLYM(LOIN 0.77-3.85 10 3/mcL C) Lymphocyte, 2.60 Absolute LAB ANGIE(LOINC 0.15-1.00 10 3/mcL ) Monocyte, 0.80 Absolute LAB AEOS(LOINC 0.00-0.40 10 3/mcL ) Eosinophil, 0.30 Absolute LAB ABAS(LOINC 0.00-0.19 10 3/mcL ) Basophil, 0.10 Absolute Performed By: #### GFR, CMP, LIPID, CBC, ADIFF, ANEU, TSH #### [address] [address] .NEUABS Collected: 07/25/2017 Status: F Source: [facility] 9:35 AM [facility] REPOSITORY TYPE CODE TESTS RESULT OUT OF REFERENCE UNITS RANGE LAB ANEU(LOINC) 2.85-6.16 10 3/mcL Neutrophil, 4.50 Absolute Performed By: #### GFR, CMP, LIPID, CBC, ADIFF, ANEU, TSH #### [id number] [place], [place] [address] TSH Collected: 07/25/2017 Status: F Source: [facility] 9:35 AM [facility] REPOSITORY TYPE CODE TESTS RESULT OUT OF RANGE REFERENCE UNITS LAB TSH(LOINC) 0.27-4.20 mcIU/mL TSH 0.63 Performed By: #### GFR, CMP, LIPID, CBC, ADIFF, ANEU, TSH #### [place] [address] [place], [place] [address] US THYROID Observed: 05/01/2017 Status: F Source: [facility] 9:30 AM [facility] REPOSITORY ORIGINAL Ultrasound Thyroid CLINICAL STATEMENT: HYPOTHYROIDISM, COMPARISON: None FINDINGS: The quality of the study is degraded due to patient body habitus. Size right thyroid lobe: 4.9 x 1.3 x 1.6 cm Size left thyroid lobe: 4.7 x 1.5 x 1.3 cm Size isthmus: 3 mm Texture: Heterogenous Estimated total number of nodules greater than or equal to 1 cm: 0 Number of spongiform nodules >/= 2 cm not described below (TR1): 0 Number of mixed cystic and solid nodules >/= 1.5 cm not described below (TR2): 0 IMPRESSION: Heterogenous nonenlarged thyroid without discrete nodularity. I have personally reviewed the images of this examination and agree with the resident's findings and interpretation. Interpreted By: Dafne Jalloh MD Preliminary Report By: Candido Mansfield MD Electronically Signed By: Dafne Jalloh MD Dictated Date: 05/01/2017 3:51:01 PM Prelim Date: 05/01/2017 4:38:47 PM Sign Date: 05/01/2017 4:53:29 PM CBC Collected: 04/25/2017 Status: F Source: [facility] 9:20 AM [facility] REPOSITORY TYPE CODE TESTS RESULT OUT OF REFERENCE UNITS RANGE LAB WBC(LOINC) 4.60-10.80 10 3/mcL WBC 10.10 LAB RBCCT(LOINC 4.04-6.13 10 6/mcL ) RBC 5.22 LAB HGB(LOINC) 14.0-18.0 G/dL Hgb 15.7 LAB HCT(LOINC) 42.0-52.0 % Hct 48.2 LAB MCV(LOINC) 80.0-94.0 fL MCV 92.4 LAB MCH(LOINC) 27.0-31.2 pg MCH 30.1 LAB MCHC(LOINC) 31.8-35.4 G/dL MCHC 32.5 LAB RDW(LOINC) 11.5-14.5 % RDW 12.7 LAB PLT(LOINC) 130-400 10 3/mcL Platelet 274 LAB MPV(LOINC) 7.4-10.4 fL MPV 10.2 Performed By: #### CBC, ADIFF, ANEU, CMP, LIPID, GFR, TSH #### [address] [address] .AUTO DIFF Collected: 04/25/2017 Status: F Source: [facility] 9:20 AM [facility] REPOSITORY TYPE CODE TESTS RESULT OUT OF REFERENCE UNITS RANGE LAB MARILU(LOINC) 37.0-80.0 % Neutrophil % 60.4 LAB LYM(LOINC) 10.0-50.0 % Lymphocyte % 24.8 LAB MON(LOINC) 1.7-13.0 % Monocyte % 8.7 LAB EO(LOINC) 0.0-7.0 % Eosinophil % 5.3 LAB BAS(LOINC) 0.0-2.5 % Basophil % 0.8 LAB ABLYM(LOIN 0.77-3.85 10 3/mcL C) Lymphocyte, 2.50 Absolute LAB ANGIE(LOINC 0.15-1.00 10 3/mcL ) Monocyte, 0.90 Absolute LAB AEOS(LOINC 0.00-0.40 10 3/mcL ) High Eosinophil, 0.50 Absolute LAB ABAS(LOINC 0.00-0.19 10 3/mcL ) Basophil, 0.10 Absolute Performed By: #### CBC, ADIFF, ANEU, CMP, LIPID, GFR, TSH #### [address] [address] .NEUABS Collected: 04/25/2017 Status: F Source: [facility] 9:20 AM [facility] REPOSITORY TYPE CODE TESTS RESULT OUT OF REFERENCE UNITS RANGE LAB ANEU(LOINC) 2.85-6.16 10 3/mcL Neutrophil, 6.10 Absolute Performed By: #### CBC, ADIFF, ANEU, CMP, LIPID, GFR, TSH #### [address] [address] CMP Collected: 04/25/2017 Status: F Source: [facility] 9:20 AM [facility] REPOSITORY TYPE CODE TESTS RESULT OUT OF REFERENCE UNITS RANGE LAB 1547-9 70-105 mg/dL GLUCOSE High 152 LAB NA(LOINC) 136-146 mEq/L Sodium Level 139 LAB K(LOINC) 3.5-5.1 mEq/L Potassium Level 4.9 LAB CL(LOINC) 98-107 mEq/L Chloride 100 LAB CO2(LOINC) 22-29 mEq/L CO2 28 LAB EBAL(LOINC mEq/L ) Electrolyte Balance 11.0 LAB BUN(LOINC) 7.0-18.0 mg/dL BUN High 20.0 LAB CRE(LOINC) 0.6-1.2 mg/dL Creatinine Lvl (s) 0.9 LAB BC(LOINC) 7-27 ratio BUN/Creatinine 22 Ratio LAB CA(LOINC) 8.4-10.2 mg/dL Calcium Lvl 9.5 LAB PROT(LOINC 6.0-8.3 G/dL ) Total Protein 7.1 LAB ALB(LOINC) 3.5-5.0 G/dL Albumin Level 4.2 LAB GLB(LOINC) G/dL Globulin 2.9 LAB AG(LOINC) 1.1-2.5 ratio A/G Ratio 1.4 LAB BILT(LOINC 0.2-1.0 mg/dL ) Bili Total 0.4 LAB AP(LOINC) 40-135 IU/L Alk Phos High 137 LAB AST(LOINC) 10-40 IU/L AST/SGOT 32 LAB ALT(LOINC) 10-35 IU/L ALT/SGPT High 41 Performed By: #### CBC, ADIFF, ANEU, CMP, LIPID, GFR, TSH #### [address] [address] LIPID Collected: 04/25/2017 Status: F Source: [facility] 9:20 AM [facility] REPOSITORY TYPE CODE TESTS RESULT OUT OF REFERENCE UNITS RANGE LAB CHOL(LOINC 131-200 mg/dL ) Cholesterol High 237 Result Comment: Cholesterol Reference Interval: Less than 200 Desirable 200-239 Borderline high risk 240 and above High risk LAB TRIG(LOINC) 40-150 mg/dL Triglycerides High 194 Result Comment: Triglyceride Reference Interval: Less than 150 Normal 150-199 Borderline high risk 200-499 High risk 500 or higher Very high risk LAB HD(LOINC) 35-90 mg/dL HDL Cholesterol 55 Result Comment: HDL Reference Interval: Less than 40 Low - high risk 60 or above Optimal/lowers risk LAB LDL(LOINC) 0-130 mg/dL LDL High Cholesterol 143 Result Comment: LDL is a calculated result and requires a 12-hr fast. LDL Reference Interval: Less than 100 Optimal 100-129 Near or above optimal 130-159 Borderline high risk 160-189 High risk 190 and above Very high risk Performed By: #### CBC, ADIFF, ANEU, CMP, LIPID, GFR, TSH #### [address] [address] .GFR Collected: 04/25/2017 Status: F Source: [facility] 9:20 AM [facility] REPOSITORY TYPE CODE TESTS RESULT OUT OF REFERENCE UNITS RANGE LAB GFRAA(LOINC ml/min/1.73 ) sqm GFR 105 [place] Result Comment: GFR Population mean for , Non- Americans Ages 20-29 = 116 mL/min/1.73 sq.m. Ages 30-39 = 107 mL/min/1.73 sq.m. Ages 40-49 = 99 mL/min/1.73 sq.m. Ages 50-59 = 93 mL/min/1.73 sq.m. Ages 60-69 = 85 mL/min/1.73 sq.m. Ages 70+ = 75 mL/min/1.73 sq.m. Chronic Kidney Disease: Less than 60 mL/min/1.73 square meters End Stage Renal Disease: Less than 15 mL/min/1.73 square meters LAB GFRNO(LOINC) ml/min/1.73sqm GFR Non- >60 Result Comment: GFR Population mean for , Non- Americans Ages 20-29 = 116 mL/min/1.73 sq.m. Ages 30-39 = 107 mL/min/1.73 sq.m. Ages 40-49 = 99 mL/min/1.73 sq.m. Ages 50-59 = 93 mL/min/1.73 sq.m. Ages 60-69 = 85 mL/min/1.73 sq.m. Ages 70+ = 75 mL/min/1.73 sq.m. Chronic Kidney Disease: Less than 60 mL/min/1.73 square meters End Stage Renal Disease: Less than 15 mL/min/1.73 square meters Performed By: #### CBC, ADIFF, ANEU, CMP, LIPID, GFR, TSH #### [address] [place], [place] [address] TSH Collected: 04/25/2017 Status: F Source: [facility] 9:20 AM [facility]OUNDATION REPOSITORY TYPE CODE TESTS RESULT OUT OF RANGE REFERENCE UNITS LAB TSH(LOINC) 0.27-4.20 mcIU/mL High TSH 8.11 Result Comment: Above normal(expected)range Performed By: #### CBC, ADIFF, ANEU, CMP, LIPID, GFR, TSH #### [address] [place], [place] [address] ALLERGIES ALLERGIES DATE TYPE / CODE NAME / CODE REACTION SEVERITY SOURCE 03/18/2018 Drug No Known Unknown [facility] Allergy/4160 Allergies/F00 [facility] [address](SNOMED 1609062(RXNOR Repository CT) M) ENCOUNTERS ENCOUNTERS ADMIT/DISCHARGE ACCOUNT NUMBER ADMITTING ENCOUNTER LOCATION SOURCE CLASS 04/01/2018/04/01/20 [id number] Ambulatory BBuilding:RA Lindsay Pulliam [facility] Repository 03/25/2018/03/29/20 [id number] Ambulatory BBuilding:DR Montoya [address] [place] [address] Repository 03/18/2018/03/18/20 [id number] Emergency [address] ding:ED Repository 01/09/2018 [id number] Ambulatory BBuilding:RA Lindsay Pulliam [facility] Repository 12/12/2017/12/17/19 [id number] Ambulatory LINDSAY [address] ding:TIM [facility] Emergency Department Repository 07/25/2017/07/30/19 [id number] Ambulatory [address] ding:TIM [facility] Repository 06/27/2017/06/28/19 [id number] Emergency BBuilding:RAYMOND Merritt [facility] Repository 05/01/2017/05/01/19 [id number] Ambulatory [address] ding:[facility] Repository 04/25/2017/04/29/19 [id number] Ambulatory [address] ding:[employer] [facility] Department Repository PAYERS PAYERS ENCOUNTER GUARANTOR PAYER SUBSCRIBER SOURCE 04/01/2018 CARLTON Prince [facility] Insurance:MEDICARE WINESDOB: [facility] N PART B INSCOPolicy [id number] Repository [address] Number: [address] [place] [id number] [place], [place] [address]Ujw: (000) Date:2018-04-01 [address]Trl: (WP) [id number] 000-0000 (WP) Name:[facility] Administrators [facility] [address] [place] [address]UK: 03/25/2018 CARLTON A Primary CARLTON Montoya [facility] WINESDOB: Insurance:MEDICARE WINESDOB: [facility] N PART B INSCOPolicy [id number] Repository [address] Number: [address] [place] [id number] [place], [place] [address]Rpe: ([phone]) Date:2018-03-2587322Njm: [id number] [phone] ()Tel: (000) Name:[facility] () () Administrators [facility] 000-0000 () [address] [place] [address]YH: 03/18/2018 CARLTON Prince WINES59 Primary CARLTON A Belia [address] Insurance:MEDICARE WINESDOB: [facility] [place] PART A BPolicy [id number] [address]Gcl: (330) Number: Repository [phone] () [id number] Date:2018-03-18 03/18/2018 Secondary NOT GIVENUNK [place] Insurance:SELF PAY [facility] Number: Effective Repository Date:2018-03-18 01/09/2018 CARLTON A Primary [facility]: Insurance:MEDICARE WINESDOB: [facility] N PART BPolicy Number: [id number] Repository [id number] [address] [place], [place] Date:2017-12-26 - [place], [place] [address]Wrz: [phone] [id number]: Name:[facility] 425[facility] (HP)Tel: (000) Administrators [facility] ([place]) (WP) [address] [address]Ktbioxvaq, 000-0000 (WP) [place] [address]BR: 12/12/2017 CARLTON A Primary [facility]: Insurance:MEDICARE WINESDOB: [facility] N PART BPolicy Number: [id number] Repository [id number] [address] [place], [place] Date:2017-12-12 - [place], [place] [address]Bqv: [phone] [id number]: Name:[place] [address] ([place])Tel: (000) Administrators [facility] (HP) (WP) [address] [address]Atfswtllu, 000-0000 (WP) [place] [address]FF: 07/25/2017 CARLTON A Primary CARLTON Montoya [facility] WINESDOB: Insurance:MEDICARE WINESDOB: [facility] N PART BPolicy Number: [id number] Repository [address] [id number] [address] [place], [place] Date:2017-07-25 - [place], [place] [address]Hzd: [phone] [id number]: Name:[facility] 425[facility]8 (HP)Tel: (000) Administrators [facility] ([place]) (WP) [address] [address]Wpaurucem, 000-0000 (WP) [place] [address]PH: 06/27/2017 CARLTON A Primary CARLTON Montoya [facility] WINESDOB: Insurance:MEDICARE WINESDOB: [facility] N PART BPolicy Number: [id number] Repository [id number] [address] [place], [place] Date:2017-06-27 [place] [address]Ove: [phone] [id number]: Name:[place] [address] (HP)Tel: (000) Administrators [facility] (HP) (WP) [address] [address]Qsapzwzmn, 000-0000 (WP) [place] [address]QM: 05/01/2017 CARLTON A Primary [facility] WINESDOB: Insurance:MEDICARE WINESDOB: [facility] N PART BPolicy Number: [id number] Repository [id number] [address] [place], [place] Date:2017-04-30 [place] [address]Ojr: [phone] [id number]: Name:[place] [address] (HP)Tel: (000) Administrators [facility] (HP) (WP) [address] [address]Qkdmxrkkw, 000-0000 (WP) [place] [address]AT: 04/25/2017 CARLTON A Primary CARLTON [facility] WIN[facility]: Insurance:MEDICARE WINESDOB: [facility] N PART BPolicy Number: [id number] Repository [id number] [address] [place], [place] Date:2017-04-25 - [place] [address]Nwf: [id number]: Name:[facility] 425[facility]8 (HP)Tel: (000) Administrators [facility] (HP) (WP) [address] [address]Ckleiupmj, 000-0000 (WP) [place] [address]WC:
== END 2018-03-18 14:38 | disposition home or self-care (01) ==
PROVIDERS: Emergency Provider Emergency Medicine
DX: M54.5 Low back pain (principal); I10 Essential (primary) hypertension; E11.65 Type 2 diabetes mellitus with hyperglycemia; E66.9 Obesity, unspecified
CPT/HCPCS: 80048; 81001; 82962; 96374; 96375; 99283; J7030; A4216; J2405

== ENCOUNTER 2018-10-01 06:14 | Emergency (ER) | payer MEDICARE, SELFPAY ==
[2018-10-01 06:15] VITALS: BP 170/122; PULSE 79; RESP 15; TEMP 36.4; BMI 60.0
--- NOTE | 2018-10-01 06:30 | ED.DCSUM_ITS ---
- ER Visit Summary Date of Service: 10/01/18 Chief Complaint: Dental pain History of Present Illness: The patient is a 53 M with a 2-day history of left upper dental pain. Patient states he plans to call his insurance company today to find a local dentist. He was told by friends that it is not taking care of and he has an abscess that pops that will kill him so he came to the emergency room. Physical Examination: Vital signs significant for blood pressure of 170/122. Patient sitting upright in bed no acute distress. Head neck examination was no facial edema or erythema. Intraoral examination reveals multiple dental caries with teeth decayed down to the gumline. The left central incisor and the maxillary surface is decayed and he has noted gum inflammation over the border of the tooth. There is no fluctuant mass. There is no trismus. Test Results: [] Emergency Department Course and Treatment: Patient will be given Pen-Vee K with a prescription for the same. He will be given a list of local dental clinics if his insurance is not able to help him find a local dentist. Treatment Plan: [] Disposition: Discharge Impression: Odontalgia This note was generated with [employer] dictation software. It may contain incorrect words, spelling, and punctuation that were not noted in review of the chart prior to signing ED Disposition - Plan for ED Patient: Disposition: Home or Assisted Living Instructions: ED Tooth Pain Prescriptions: Penicillin V Potassium 500 mg PO 4X/DAY #40 tablet Additional Instructions: Dental referral list provided.
[2018-10-01] MEDS: Penicillin Vk 250 MG Tablet 500 MG PO (06:41)
[2018-10-01 06:50] VITALS: BP 144/97; PULSE 66; RESP 15; O2SAT 96
== END 2018-10-01 06:51 | disposition home or self-care (01) ==
LOC: ED 06:46
PROVIDERS: Emergency Provider Emergency Medicine
DX: K08.89 Other specified disorders of teeth and supporting structures (principal); K02.9 Dental caries, unspecified; E66.9 Obesity, unspecified; E11.9 Type 2 diabetes mellitus without complications
CPT/HCPCS: 99283

== ENCOUNTER → 2019-08-12 11:25 | Outpatient (CLI) | payer MEDICARE, SELFPAY ==
[2019-08-12 11:38] LABS: Mucous, Urine 0 SEEN /hpf (<or=2+); Red Blood Cells-Urine 0 SEEN /hpf (0-5); White Blood Cells 0 SEEN /hpf (0-5)
[2019-08-12 15:32] LABS: Absolute Lymphocyte Count 2.07 X10^3/uL (0.83-4.51); Absolute Neutrophil Count 4.3 X10^3/uL (2.0-7.7); Basophil# 0.07 X10^3/uL; Color, Urine Yellow (Yellow); Eosinophil# 0.21 X10^3/uL; Eosinophils% 2.9 % (0-5); Glucose, Dipstick 1000 mg/dl (Normal); Hematocrit 46.9 % (40-54); Hemoglobin 15.1 g/dL (13.0-16.5); Ketone-Dipstick 5 mg/dl (Negative); Leukocyte Esterase-Dipstick Negative /ul (Negative); Lymphocyte # 2.07 X10^3/ul (4.0); Lymphocyte % 28.8 % (19-41); Mean Corp Hgb Conc 32.2 g/dL (32-36); Mean Corpuscular Hgb 29.8 pg (27.0-32.0); Mean Corpuscular Volume 92.5 fL (80-94); Mean Platelet Vol. 11.6 fl (6.2-12.0); Monocyte# 0.56 X10^3/uL; Monocyte% 7.8 % (0-10); NRBC Flagged by Analyzer 0 % (0-5); Neutrophil # 4.26 X10^3/uL (2.7-7.7); Neutrophil % 59.1 % (47-70); Nitrite-Dipstick Negative (Negative); Occult Blood-Urine Negative /ul (Negative); Platelet Count 247 K/mm3 (150-450); Protein-Dipstick Negative (Negative); RBC Distribution Width CV 11.9 % (11.6-14.6); RBC Distribution Width SD 40.9 fl (35.1-43.9); Red Blood Count 5.07 M/mm3 (4.6-6.2); Urine Bilirubin Dipstick Negative (Negative); Urine Clarity Clear (Clear); Urine Urobilinogen Normal (Normal); White Blood Count 7.2 K/mm3 (4.4-11.0)
[2019-08-12 15:41] LABS: Bacteria RARE /hpf (None Seen); Squamous Epithelial Cells - UA 0-5 SEEN /hpf (0-5)
[2019-08-12 15:52] LABS: ALB/GLOB Ratio 0.9 RATIO (0.9-2.4); AST(SGOT) 29 U/L (15-37); Alanine Aminotransfer ALT/SGPT 59 U/L (16-61); Albumin, Serum 3.4 g/dL (3.2-5.0); Alkaline Phosphatase 154 U/L (45-117); Anion Gap 8 (5-15); BUN 19 mg/dL (7-18); BUN/Creat Ratio 20.5 RATIO (10-20); Calcium,Total 9.3 mg/dL (8.5-10.1); Chloride 100 mmol/L (98-107); Cholesterol 204 mg/dL (200); Creatinine, Serum 0.93 mg/dL (0.70-1.30); EST Glomerular Filtration Rate 91 mL/min (>60); Est Glom Filt Rate - Afr Amer 110 mL/min (>60); Globulin 3.9 g/dL (2.2-4.2); Glucose 308 mg/dL (74-106); High Density Lipoprotein 49 mg/dL; Protein, Total 7.3 g/dL (6.4-8.2); Sodium Level 134 mmol/L (136-145); T4 Free Direct 1.27 ng/dL (0.76-1.46); Thyroid Stim Hormone (TSH) 1.88 uIU/mL (0.358-3.74); Triglycerides 241 mg/dL; Very Low Density Lipoprotein 48 mg/dL (5-40)
[2019-08-12 15:54] LABS: Hemoglobin A1c 10.2 % (4.2-6.3)
[2019-08-12 16:08] LABS: Microalbumin,Random Urine 14.2 mg/L (NO RANGE EST.); Microalbumin:Creatinine Ratio 15.8 mg/g CRE (<30 mg/g CRE)
== END ==
PROVIDERS: PCP Family Medicine; Referring Provider Family Medicine; Visit Provider Family Medicine
DX: E03.9 Hypothyroidism, unspecified (principal); E78.00 Pure hypercholesterolemia, unspecified; I10 Essential (primary) hypertension; E11.9 Type 2 diabetes mellitus without complications
CPT/HCPCS: 36415; 80053; 80061; 81001; 82043; 82570; 83036; 84439; 84443; 85025

== ENCOUNTER 2019-09-02 13:00 | Outpatient (RCR) | payer MEDICARE, SELFPAY | END 2019-09-20 23:59 | LOC: DC 13:00 | PROVIDERS: PCP Family Medicine; Visit Provider Family Medicine | DX: Z71.3 Dietary counseling and surveillance (principal); E11.9 Type 2 diabetes mellitus without complications; E66.01 Morbid (severe) obesity due to excess calories; Z68.44 Body mass index [BMI] 60.0-69.9, adult | CPT/HCPCS: 97802; G0108 ==

== ENCOUNTER → 2019-09-25 14:46 | Outpatient (CLI) | payer MEDICARE, SELFPAY ==
--- NOTE | 2019-09-25 15:04 | ECHOCS_ITS ---
Reason For Study: SOB Procedure This was a 2D Doppler, Color Flow transthoracic echocardiogram. The exam was of poor technical quality due to body habitus. The study was technically limited. Contrast injection was performed. Exam performed in department. Left Ventricle Normal LV size. The estimated ejection fraction is 55 %. No regional wall motion abnormalities noted. Right Ventricle Normal RV size. Normal systolic function. Mitral Valve Mitral valve not well visualized. Tricuspid Valve The tricuspid valve is not well visualized. Pulmonic Valve The pulmonic valve is not well visualized. Great Vessels Normal aortic root. The pulmonary artery is normal size. Pericardium/Pleural No pericardial effusion. Medication 22 gauge I.V. with prn adaptor inserted into left arm. Diluted definity 7ml given slow IV push to enhance endocardial definition. MMode/2D Measurements & Calculations LVIDd: 4.7 cm IVSd: 1.5 cm Ao root diam: 3.8 cm LVIDs: 3.0 cm LVPWd: 1.2 cm RVDd: 3.7 cm FS: 36.4 % LAV(MOD-sp4): 36.0 ml LA A4 area: 15.2 cm2 LA dimension(2D): 3.8 cm RA A4 area: 10.0 cm2 Time Measurements MV dec time: 0.25 sec Doppler Measurements & Calculations MV E max evita: 64.8 cm/sec Ao V2 max: 119.2 cm/sec LV V1 max: 86.5 cm/sec MV A max evita: 88.9 cm/sec Ao max P.7 mmHg LV V1 max P.0 mmHg MV E/A: 0.73 PA V2 max: 83.6 cm/sec TR max evita: 164.6 cm/sec TR max P.8 mmHg Interpretation Summary Normal LV size. The estimated ejection fraction is 55 %. No regional wall motion abnormalities noted. Contrast injection was performed. The study was technically limited. The study was technically difficult. Ordering Physician: Foster Reyes Referring Physician: Foster Reyes Performed By: Era Casas, THERESA, RVT
== END ==
LOC: CVS 14:47
PROVIDERS: PCP Family Medicine; Referring Provider Family Medicine; Visit Provider Family Medicine
DX: R06.02 Shortness of breath (principal)
CPT/HCPCS: 93306; Q9957; A4216; C8929

== ENCOUNTER 2019-09-30 13:00 | Outpatient (RCR) | payer MEDICARE, SELFPAY | END 2019-09-30 23:59 | disposition home or self-care (01) | LOC: DC 13:00 | PROVIDERS: PCP Family Medicine; Visit Provider Family Medicine | DX: Z71.3 Dietary counseling and surveillance (principal); E11.9 Type 2 diabetes mellitus without complications; E66.01 Morbid (severe) obesity due to excess calories; Z68.44 Body mass index [BMI] 60.0-69.9, adult | CPT/HCPCS: 97803; G0108 ==

== ENCOUNTER → 2019-12-21 09:33 | Outpatient (CLI) | payer MEDICARE, SELFPAY ==
[2019-12-21 12:01] LABS: Absolute Lymphocyte Count 2.35 X10^3/uL (0.83-4.51); Absolute Neutrophil Count 5.2 X10^3/uL (2.0-7.7); Basophil# 0.04 X10^3/uL; Basophil% 0.5 % (0-1); Eosinophil# 0.31 X10^3/uL; Eosinophils% 3.6 % (0-5); Hematocrit 42.2 % (40-54); Hemoglobin 13.4 g/dL (13.0-16.5); Lymphocyte # 2.35 X10^3/ul (4.0); Lymphocyte % 27.4 % (19-41); Mean Corp Hgb Conc 31.8 g/dL (32-36); Mean Corpuscular Hgb 29.9 pg (27.0-32.0); Mean Corpuscular Volume 94.2 fL (80-94); Mean Platelet Vol. 11.6 fl (6.2-12.0); Monocyte# 0.68 X10^3/uL; Monocyte% 7.9 % (0-10); NRBC Flagged by Analyzer 0 % (0-5); Neutrophil # 5.17 X10^3/uL (2.7-7.7); Neutrophil % 60.3 % (47-70); Platelet Count 293 K/mm3 (150-450); RBC Distribution Width CV 12.6 % (11.6-14.6); RBC Distribution Width SD 43.2 fl (35.1-43.9); Red Blood Count 4.48 M/mm3 (4.6-6.2); White Blood Count 8.6 K/mm3 (4.4-11.0)
[2019-12-21 12:21] LABS: Hemoglobin A1c 6.8 % (3.8-5.6)
[2019-12-21 12:29] LABS: ALB/GLOB Ratio 0.8 RATIO (0.9-2.4); AST(SGOT) 20 U/L (15-37); Alanine Aminotransfer ALT/SGPT 27 U/L (16-61); Albumin, Serum 3.2 g/dL (3.2-5.0); Alkaline Phosphatase 116 U/L (45-117); Anion Gap 6 (5-15); BUN 13 mg/dL (7-18); BUN/Creat Ratio 15.9 RATIO (10-20); Calcium,Total 8.8 mg/dL (8.5-10.1); Chloride 105 mmol/L (98-107); Cholesterol 146 mg/dL (200); Creatinine, Serum 0.82 mg/dL (0.70-1.30); EST Glomerular Filtration Rate 105 mL/min (>60); Est Glom Filt Rate - Afr Amer 127 mL/min (>60); Globulin 3.8 g/dL (2.2-4.2); Glucose 154 mg/dL (74-106); High Density Lipoprotein 46 mg/dL; Potassium 4.2 mmol/L (3.5-5.1); Sodium Level 137 mmol/L (136-145); T4 Free Direct 1.63 ng/dL (0.76-1.46); Thyroid Stim Hormone (TSH) 0.01 uIU/mL (0.358-3.74); Triglycerides 166 mg/dL; Very Low Density Lipoprotein 33 mg/dL (5-40)
== END ==
LOC: MFPLAB 09:34
PROVIDERS: PCP Family Medicine; Referring Provider Family Medicine; Visit Provider Family Medicine
DX: E11.9 Type 2 diabetes mellitus without complications (principal); I10 Essential (primary) hypertension; E03.9 Hypothyroidism, unspecified; E78.00 Pure hypercholesterolemia, unspecified
CPT/HCPCS: 36415; 80053; 80061; 83036; 84439; 84443; 85025

== ENCOUNTER 2020-01-19 19:59 | Emergency (ER) | payer MEDICARE, SELFPAY ==
[2020-01-19 20:00] VITALS: BP 196/110; PULSE 107; RESP 26; TEMP 35.7; O2SAT 97; BMI 55.0
--- NOTE | 2020-01-19 21:28 | RAD_ITS ---
STUDY: X-RAY CHEST REASON FOR EXAM: Male, 54 years old. RUNNY NOSE AND COUGH THAT STARTED YESTERDAY TECHNIQUE: PA and lateral views of the chest. COMPARISON: None. FINDINGS: The lungs are clear and expanded. There is no demonstrated pleural abnormality. Normal size heart. Normal mediastinum and zoila. Normal visualized pulmonary arteries. Normal visualized aortic arch and descending thoracic aorta. There are diffuse degenerative changes of the visualized thoracic spine. Normal visualized ribs, clavicles, and shoulders. There is no demonstrated abnormality of the visualized soft tissue structures of the upper abdomen. RAD/Chest PA and Lateral IMPRESSION: Normal x-ray examination of the chest. Electronically Signed: Tk Aguillon MD at 21:59 EDT , Service support ,
--- NOTE | 2020-01-19 21:37 | ED.VIS.GEN ---
History of Present Illness Chief Complaint: Cold Sx Informant: Patient Narrative: Patient is a 54-year-old male who presents to the emergency department for cough and congestion. This is been present over the past 2 days. He denies any significant production to his cough. No fevers or chills. No known sick contacts. No known coronavirus exposures. He denies any nausea or vomiting. No diarrhea. He does not smoke. No associated chest pain. No leg swelling or calf tenderness. No history of DVT/PE. He denies any ear pain. No sinus pain. Has had a mild sore throat. He has not tried taking anything for this. Past Medical History - Allergies and Home Meds Allergies/Adverse Reactions: Allergies escitalopram [From Lexapro] Adverse Reaction (Verified 01/19/20 20:01) Rash Primary Care Physician: Foster Reyse MD [Primary Care Provider] - Prior records reviewed: Yes Past Medical History: - - Hypertension, diabetes, hyperlipidemia Smoking Status: Never smoker Review of Systems All systems negative except as indicated General: Denies: Chills, Fever, Sweats Eyes: Denies: Visual changes - bilaterally, Diplopia ENT: Reports: Sore throat. Denies: Rhinorrhea Cardiovascular: Denies: Chest pain, Palpitations Respiratory: Reports: Cough. Denies: Dyspnea, Sputum, Dyspnea on exertion Gastrointestinal: Denies: Abdominal pain, Nausea, Vomiting, Diarrhea, Melena, Hematochezia Genitourinary: Denies: Dysuria, Hematuria, Frequency Musculoskeletal: Denies: Back pain, Extremity Pain Skin: Denies: Rash, Wounds Neurological: Denies: Headache, Weakness, Numbness Physical Exam Vital Signs/Narrative: Vital Signs Temp Pulse Resp BP Pulse Ox 01/19/20 20:00 96.3 F L 107 H 26 H 196/110 H 97 General: Well nourished, Well developed, No Acute Distress Head: Normocephalic, Atraumatic Eyes: Perrl, EOMI ENT: Moist mucous membranes, No rhinorrhea Neck: Supple, Nontender Cardiovascular: Regular rate, Regular rhythm, No murmurs Respiratory: No distress, CTA bilaterally, Chest nontender Abdomen: Soft, Nontender, Nondistended, Normal bowel sounds Back: Nontender, Normal Inspection Extremities: Nontender, No edema. Negative for: Calf Tenderness Skin: Normal color, No rash Neurological: Alert, Oriented x3, Cranial nerves II-XII grossly intact, Normal Strength, Normal Sensation Psychological: Normal affect, Normal Mood Diagnostic/Tx/Re-eval - Medical Decision Making Patient presents to the emergency department for cough and congestion. Upon arrival to the emerge department he is hypertensive, mildly tachycardic and mildly tachypneic. Satting well on room air. Once patient is resting in bed his vital signs improved. No longer tachypneic or tachycardic. Physical exam is benign. Will check chest x-ray for evidence of pneumonia. X-ray did not reveal any evidence of pneumonia. He has been stable throughout ED stay. Patient requesting something for cough and will be provided a prescription for Tessalon Perles. Otherwise symptomatic treatment at home. He is to follow-up with his PCP. Warning signs and symptoms which to return to the ED are reviewed. He understands and is agreeable this plan. Patient discharged home in stable condition. ED Disposition - Plan for ED Patient: Disposition: Home or Assisted Living Diagnosis: Cough Instructions: ED Upper Resp Infec No Abx Tx Prescriptions: Benzonatate [Tessalon Perle] 100 mg PO Q4H PRN PRN #15 cap PRN Reason: Cough Transmission Status: Received by [address] Referrals: Foster Reyes MD [Primary Care Provider] -
[2020-01-19 22:14] VITALS: BP 144/116; PULSE 88; RESP 16; O2SAT 97
[2020-01-19] MEDS: Benzonatate 100 MG Capsule PO (22:36)
== END 2020-01-19 22:36 | disposition home or self-care (01) ==
PROVIDERS: Emergency Provider Emergency Medicine; PCP Family Medicine
DX: R05 Cough (principal); J02.9 Acute pharyngitis, unspecified; R09.81 Nasal congestion; E11.9 Type 2 diabetes mellitus without complications
CPT/HCPCS: 71046; 99283

== ENCOUNTER → 2020-03-31 15:11 | Outpatient (CLI) | payer MEDICARE, SELFPAY ==
[2020-03-31 17:52] LABS: Hemoglobin A1c 7.9 % (3.8-5.6)
[2020-03-31 17:54] LABS: ALB/GLOB Ratio 0.9 RATIO (0.9-2.4); AST(SGOT) 18 U/L (15-37); Alanine Aminotransfer ALT/SGPT 32 U/L (16-61); Albumin, Serum 3.5 g/dL (3.2-5.0); Alkaline Phosphatase 143 U/L (45-117); Anion Gap 7 (5-15); BUN 19 mg/dL (7-18); BUN/Creat Ratio 22.5 RATIO (10-20); Chloride 104 mmol/L (98-107); Cholesterol 181 mg/dL (200); Creatinine, Serum 0.85 mg/dL (0.70-1.30); EST Glomerular Filtration Rate 101 mL/min (>60); Est Glom Filt Rate - Afr Amer 122 mL/min (>60); Glucose 226 mg/dL (74-106); High Density Lipoprotein 55 mg/dL; Potassium 4.5 mmol/L (3.5-5.1); Protein, Total 7.5 g/dL (6.4-8.2); Sodium Level 137 mmol/L (136-145); T4 Free Direct 1.17 ng/dL (0.76-1.46); Triglycerides 220 mg/dL; Very Low Density Lipoprotein 44 mg/dL (5-40)
== END ==
PROVIDERS: PCP Family Medicine; Referring Provider Family Medicine; Visit Provider Family Medicine
DX: E03.9 Hypothyroidism, unspecified (principal); E11.9 Type 2 diabetes mellitus without complications; E78.00 Pure hypercholesterolemia, unspecified
CPT/HCPCS: 36415; 80053; 80061; 83036; 84439; 84443

== ENCOUNTER → 2020-07-11 15:15 | Outpatient (CLI) | payer MEDICARE, SELFPAY ==
[2020-07-11 17:35] LABS: Absolute Lymphocyte Count 2.57 X10^3/uL (0.83-4.51); Absolute Neutrophil Count 5.2 X10^3/uL (2.0-7.7); Basophil# 0.06 X10^3/uL; Basophil% 0.7 % (0-1); Eosinophil# 0.32 X10^3/uL; Eosinophils% 3.6 % (0-5); Hematocrit 46.8 % (40-54); Hemoglobin 15.1 g/dL (13.0-16.5); Lymphocyte # 2.57 X10^3/ul (4.0); Lymphocyte % 28.7 % (19-41); Mean Corp Hgb Conc 32.3 g/dL (32-36); Mean Corpuscular Hgb 30.3 pg (27.0-32.0); Mean Corpuscular Volume 93.8 fL (80-94); Mean Platelet Vol. 11.8 fl (6.2-12.0); Monocyte# 0.73 X10^3/uL; Monocyte% 8.2 % (0-10); NRBC Flagged by Analyzer 0 % (0-5); Neutrophil # 5.21 X10^3/uL (2.7-7.7); Neutrophil % 58.1 % (47-70); Platelet Count 279 K/mm3 (150-450); RBC Distribution Width CV 12.2 % (11.6-14.6); RBC Distribution Width SD 42.3 fl (35.1-43.9); Red Blood Count 4.99 M/mm3 (4.6-6.2)
[2020-07-11 18:03] LABS: ALB/GLOB Ratio 0.9 RATIO (0.9-2.4); AST(SGOT) 34 U/L (15-37); Alanine Aminotransfer ALT/SGPT 54 U/L (16-61); Albumin, Serum 3.6 g/dL (3.2-5.0); Alkaline Phosphatase 162 U/L (45-117); Anion Gap 8 (5-15); BUN 14 mg/dL (7-18); BUN/Creat Ratio 17.6 RATIO (10-20); Calcium,Total 9.6 mg/dL (8.5-10.1); Chloride 101 mmol/L (98-107); Cholesterol 288 mg/dL (200); EST Glomerular Filtration Rate 108 mL/min (>60); Est Glom Filt Rate - Afr Amer 131 mL/min (>60); Globulin 4.1 g/dL (2.2-4.2); Glucose 278 mg/dL (74-106); Hemoglobin A1c 9.7 % (3.8-5.6); High Density Lipoprotein 57 mg/dL; Potassium 4.8 mmol/L (3.5-5.1); Protein, Total 7.7 g/dL (6.4-8.2); Sodium Level 136 mmol/L (136-145); Thyroid Stim Hormone (TSH) 4.94 uIU/mL (0.358-3.74); Triglycerides 338 mg/dL; Very Low Density Lipoprotein 68 mg/dL (5-40)
[2020-07-11 18:09] LABS: Microalbumin,Random Urine 20.6 mg/L (NO RANGE EST.); Microalbumin:Creatinine Ratio 24.1 mg/g CRE (<30 mg/g CRE)
== END ==
LOC: MFPLAB 15:16
PROVIDERS: PCP Family Medicine; Visit Provider Family Medicine
DX: E78.00 Pure hypercholesterolemia, unspecified (principal); I10 Essential (primary) hypertension; E03.9 Hypothyroidism, unspecified; E11.9 Type 2 diabetes mellitus without complications
CPT/HCPCS: 36415; 80053; 80061; 82043; 82570; 83036; 84439; 84443; 85025

== ENCOUNTER 2020-07-25 22:54 | Emergency (ER) | payer MEDICARE, SELFPAY ==
[2020-07-25 22:54] VITALS: BP 179/86; PULSE 106; RESP 24; TEMP 36.4; O2SAT 96; BMI 59.3
--- NOTE | 2020-07-25 23:14 | EKG12_ITS ---
Test Reason : ABD PAIN Blood Pressure : / mmHG Vent. Rate : 099 BPM Atrial Rate : 099 BPM P-R Int : 182 ms QRS Dur : 092 ms QT Int : 340 ms P-R-T Axes : 001 -36 055 degrees QTc Int : 436 ms Normal sinus rhythm Left axis deviation Poor R- wave progression Abnormal ECG Confirmed by REINA WOODS, GOPAL ([id number]), sound editor KVNG LUCERO ([id number]) on 07/29/2020 2:31:07 PM Referred By: BB Confirmed By:GOPAL HUANG MD
--- NOTE | 2020-07-25 23:16 | ED.VIS.GI ---
History of Present Illness Chief Complaint: Abd Pain Informant: Patient - Abdominal Pain/Flank Pain Onset: Hours - Several Context: Gradual Onset Timing: Continuous Quality: Sharp, Stabbing Location: Diffuse - Upper abdomen nonlateralizing Current Severity: 01/29 Maximum Severity: 01/29 Worsened by: Nothing Relieved by: - - Temporary partial relief after he had one episode of diarrhea but then the pain came back - Nausea/Vomiting/Emesis GI Symptom: Nausea. Negative for: Vomiting Onset: Today - Diarrhea/Melena/Hematochezia GI Symptom: Diarrhea Onset: Today Stool Quality: Watery. Negative for: Mucous, Black, Maroon, CORRINA per rectum Episodes: 1 Associated Symptoms: Negative for: Dysuria, Frequency, Hematuria, Urgency Narrative: 55-year-old male states he had a bagel with cream cheese on it over 12 hours ago this morning, and then he had a poor appetite with nausea all day. He had no pain until several hours ago, which is progressively gotten worse, although he had some temporary relief after 1 bout of watery diarrhea. He denies any fevers or chills, no pain up into his chest or dyspnea although he states sometimes with taking a deep breath since he is very bloated it is more uncomfortable in his upper abdomen where all of his pain is. Occasionally he has felt it radiate into his mid back but mostly not in his back. No problems urinating. No bowel or bladder incontinence. No hematuria or hematochezia. Has not vomited yet but is nauseated. No history of any abdominal surgeries in the past. Denies having a history of bowel problems that he knows of. He states he has been urinating a lot and has been thirsty today, and when he checked his blood sugar today it was in the 230 range. - Past Medical History (1) Anxiety and depression Status: Chronic (2) Type 2 diabetes mellitus Status: Chronic (3) Hypertension Status: Chronic Past Medical History - Allergies and Home Meds Allergies/Adverse Reactions: Allergies escitalopram [From Lexapro] Adverse Reaction (Verified 07/25/20 22:56) Rash Primary Care Physician: Foster Reyes MD [Primary Care Provider] - Smoking Status: Never smoker Alcohol: Occasional - None in the past 48 hours Review of Systems General: Reports: Malaise. Denies: Chills, Fever, Sweats Eyes: Denies: Visual changes - bilaterally, Diplopia ENT: Denies: Bilateral ear pain, Rhinorrhea, Sore throat Cardiovascular: Denies: Chest pain, Palpitations Respiratory: Denies: Dyspnea, Cough, Dyspnea on exertion Gastrointestinal: Reports: Abdominal pain, Nausea, Diarrhea. Denies: Vomiting, Melena, Hematochezia Genitourinary: Denies: Dysuria, Hematuria, Frequency Musculoskeletal: Reports: Back pain. Denies: Neck pain, Swelling, Extremity Pain Skin: Denies: Rash, Wounds Neurological: Denies: Headache, Weakness, Numbness Psych: Denies: Depression, Suicidal thoughts Endocrine: Reports: Polyuria, Polydipsia Physical Exam Vital Signs/Narrative: Vital Signs Temp Pulse Resp BP Pulse Ox 07/25/20 22:54 97.6 F L 106 H 24 H 179/86 H 96 Inital Vital Signs reviewed: Yes General: Well nourished, Well developed, Obese - Morbidly, No Acute Distress Head: Normocephalic, Atraumatic Eyes: Perrl, EOMI ENT: Moist mucous membranes, No rhinorrhea Neck: Supple, Nontender Cardiovascular: Regular rate, Regular rhythm, No murmurs, Tachycardia - Mild Respiratory: No distress, CTA bilaterally, Chest nontender Abdomen: Soft, Normal bowel sounds, Tender - Mild diffuse upper abdominal tenderness, - - Distended. Negative for: Guarding, Rebound tenderness, Ventral hernia, Gonzalez's sign Back: Nontender, Normal Inspection. Negative for: CVA tenderness Extremities: Nontender, No edema Skin: Normal color, No rash, No Trauma Neurological: Alert, Oriented x3, Cranial nerves II-XII grossly intact, Normal Strength, Normal Sensation, Normal Gait Psychological: Normal affect, Normal Mood Diagnostic/Tx/Re-eval Impressions Abdomen/Pelvis CT 07/26/20 23:15 IMPRESSION: Normal enhanced CT of the abdomen and pelvis. Electronically Signed: Brooks Stack DO at 1:16 EDT Tel , Service support , 07/26/20 23:15 Abdomen/Pelvis W IV Cont ONLY [CT] Stat Laboratory Results 07/25/20 07/25/20 07/26/20 23:12 23:12 00:05 WBC 9.4 RBC 4.88 Hgb 15.0 Hct 45.0 MCV 92.2 MCH 30.7 MCHC 33.3 RDW Std Deviation 41.1 RDW Coeff of Juan 12.2 Plt Count 242 MPV 11.4 Immature Gran % (Auto) 0.300 Neut % (Auto) 82.9 H Lymph % (Auto) 8.1 L [place] % (Auto) 5.4 Eos % (Auto) 2.9 Baso % (Auto) 0.4 Absolute Neuts (auto) 7.8 H Absolute Lymphs (auto) 0.76 L Nucleated RBC % 0 Sodium Cancelled 133 L Potassium Cancelled 4.1 Chloride Cancelled 102 Carbon Dioxide Cancelled 27.0 Anion Gap Cancelled 4 L BUN Cancelled 14 Creatinine Cancelled 0.80 Estim Creat Clear Calc Cancelled 103.31 Est GFR (MDRD) Af Amer Cancelled 129 Est GFR (MDRD) Non-Af Cancelled 107 BUN/Creatinine Ratio Cancelled 17.4 Glucose Cancelled 271 H Calcium Cancelled 8.1 L Total Bilirubin Cancelled 0.40 AST Cancelled 33 ALT Cancelled 49 Alkaline Phosphatase Cancelled 146 H Troponin I Cancelled < 0.015 Total Protein Cancelled 7.1 Albumin Cancelled 3.2 Globulin Cancelled 3.9 Albumin/Globulin Ratio Cancelled 0.8 L Lipase Cancelled 57 L Urine Color Urine Clarity Urine pH Ur Specific Mckee Urine Protein Urine Glucose (UA) Urine Ketones Urine Occult Blood Urine Nitrite Urine Bilirubin Urine Urobilinogen Ur Leukocyte Esterase Urine RBC Urine WBC Ur Squamous Epith Cells Urine Bacteria Urine Mucus 07/26/20 00:10 WBC RBC Hgb Hct MCV MCH MCHC RDW Std Deviation RDW Coeff of Juan Plt Count MPV Immature Gran % (Auto) Neut % (Auto) Lymph % (Auto) [place] % (Auto) Eos % (Auto) Baso % (Auto) Absolute Neuts (auto) Absolute Lymphs (auto) Nucleated RBC % Sodium Potassium Chloride Carbon Dioxide Anion Gap BUN Creatinine Estim Creat Clear Calc Est GFR (MDRD) Af Amer Est GFR (MDRD) Non-Af BUN/Creatinine Ratio Glucose Calcium Total Bilirubin AST ALT Alkaline Phosphatase Troponin I Total Protein Albumin Globulin Albumin/Globulin Ratio Lipase Urine Color Yellow Urine Clarity Clear Urine pH 5.0 Ur Specific [place]kee 1.025 Urine Protein Negative Urine Glucose (UA) 1000 H Urine Ketones 5 H Urine Occult Blood Negative Urine Nitrite Negative Urine Bilirubin Negative Urine Urobilinogen Normal Ur Leukocyte Esterase Negative Urine RBC 0 SEEN Urine WBC 0 SEEN Ur Squamous Epith Cells 0-5 SEEN Urine Bacteria RARE Urine Mucus RARE - Rhythm Strip Rhythm Strip: Sinus Rhythm Rate: 99 Ectopy: None - EKG Initial EKG Interpretation: Sinus Rhythm, No Acute Injury Pattern Prior: Unchanged - Medical Decision Making Patient said his pain was severe and was given IV fluids, Zofran, morphine, on reevaluation he is symptom-free and feels much better. Work-up is negative as above. Patient presents when ultrasound is not available, so I performed a bedside ED screening gallbladder ultrasound which was unremarkable with a negative sonographic Gonzalez's, grossly normal gallbladder wall, and no echo and stones although the exam was limited due to the patient's morbid obesity. Given all of this, I think it would be reasonable to place the patient on a 2-week course of a PPI at this time and have him follow-up closely, he states he has an appointment at the end of this week with his PCP. ED Disposition - Plan for ED Patient: Disposition: Home or Assisted Living Diagnosis: Acute upper abdominal pain Instructions: ED Epigastric Pain (Uncertain Cause) Prescriptions: Pantoprazole Sodium [Protonix] 40 mg PO DAILY #14 tab Transmission Status: Pending to [place] [id number] [address] [facility] Referrals: Foster Reyes MD [Primary Care Provider] - 3-5 Days if not improving Additional Instructions: If you get recurrent pain/discomfort, try taking Mylanta or Maalox or Pepto-Bismol, and if the pain is severe and those do not help, you may return to the emergency room.
[2020-07-25] MEDS: Ondansetron 4 MG/2 ML Vial IV (23:28)
[2020-07-25] MEDS: Morphine 4 MG/ML Syringe IV (23:28)
[2020-07-25] MEDS: 0.9% Normal Saline 1,000 ML 1000 ML IV (23:29)
[2020-07-25 23:52] LABS: Absolute Lymphocyte Count 0.76 X10^3/uL (0.83-4.51); Absolute Neutrophil Count 7.8 X10^3/uL (2.0-7.7); Basophil# 0.04 X10^3/uL; Basophil% 0.4 % (0-1); Eosinophil# 0.27 X10^3/uL; Eosinophils% 2.9 % (0-5); Lymphocyte # 0.76 X10^3/ul (4.0); Lymphocyte % 8.1 % (19-41); Mean Corp Hgb Conc 33.3 g/dL (32-36); Mean Corpuscular Hgb 30.7 pg (27.0-32.0); Mean Corpuscular Volume 92.2 fL (80-94); Mean Platelet Vol. 11.4 fl (6.2-12.0); Monocyte# 0.51 X10^3/uL; Monocyte% 5.4 % (0-10); NRBC Flagged by Analyzer 0 % (0-5); Neutrophil # 7.79 X10^3/uL (2.7-7.7); Neutrophil % 82.9 % (47-70); Platelet Count 242 K/mm3 (150-450); RBC Distribution Width CV 12.2 % (11.6-14.6); RBC Distribution Width SD 41.1 fl (35.1-43.9); Red Blood Count 4.88 M/mm3 (4.6-6.2); White Blood Count 9.4 K/mm3 (4.4-11.0)
[2020-07-26 00:19] LABS: Red Blood Cells-Urine 0 SEEN /hpf (0-5); White Blood Cells 0 SEEN /hpf (0-5)
[2020-07-26 00:20] LABS: Color, Urine Yellow (Yellow); Glucose, Dipstick 1000 mg/dl (Normal); Ketone-Dipstick 5 mg/dl (Negative); Leukocyte Esterase-Dipstick Negative /ul (Negative); Nitrite-Dipstick Negative (Negative); Occult Blood-Urine Negative /ul (Negative); Protein-Dipstick Negative (Negative); Specific Gravity, Urine 1.025 (1.002-1.030); Urine Bilirubin Dipstick Negative (Negative); Urine Clarity Clear (Clear); Urine Urobilinogen Normal (Normal)
[2020-07-26 00:33] LABS: ALB/GLOB Ratio 0.8 RATIO (0.9-2.4); AST(SGOT) 33 U/L (15-37); Alanine Aminotransfer ALT/SGPT 49 U/L (16-61); Albumin, Serum 3.2 g/dL (3.2-5.0); Alkaline Phosphatase 146 U/L (45-117); Anion Gap 4 (5-15); BUN 14 mg/dL (7-18); BUN/Creat Ratio 17.4 RATIO (10-20); Calcium,Total 8.1 mg/dL (8.5-10.1); Chloride 102 mmol/L (98-107); EST Glomerular Filtration Rate 107 mL/min (>60); Est Glom Filt Rate - Afr Amer 129 mL/min (>60); Estimated Creatinine Clearance 103.31 ml/min; Globulin 3.9 g/dL (2.2-4.2); Glucose 271 mg/dL (74-106); Lipase 57 U/L (73-393); Potassium 4.1 mmol/L (3.5-5.1); Protein, Total 7.1 g/dL (6.4-8.2); Sodium Level 133 mmol/L (136-145)
[2020-07-26 00:37] LABS: Bacteria RARE /hpf (None Seen); Mucous, Urine RARE /hpf (<or=2+); Squamous Epithelial Cells - UA 0-5 SEEN /hpf (0-5)
[2020-07-26 01:00] VITALS: BP 160/81; PULSE 76; RESP 20; O2SAT 97
[2020-07-26 03:00] VITALS: BP 159/79; PULSE 81; RESP 18; O2SAT 99
[2020-07-26 03:02] VITALS: BP 159/79
--- NOTE | 2020-07-26 23:15 | CT_ITS ---
STUDY: CT ABDOMEN AND PELVIS WITH CONTRAST REASON FOR EXAM: Male, 55 years old. diffuse abdominal pain RADIATION DOSAGE (If Supplied By Facility): CTDIvol = ( 40.91 ) mGy, DLP = ( 2121.14 ) mGycm TECHNIQUE: Transaxial images were obtained from the dome of the diaphragm to the symphysis pubis without oral contrast. IV 100mL Isovue-370 was administered. Sagittal and coronal images were reconstructed. Individualized dose optimization techniques were used for this CT. COMPARISON: None. FINDINGS: The visualized lung bases are unremarkable. The visualized portions of the heart are within normal limits. There is decreased attenuation of the liver consistent with steatosis. Normal gallbladder and extrahepatic biliary system. Normal spleen. There is diffuse atrophy of the pancreas. Normal bilateral adrenal glands. Normal right kidney. Normal left kidney. Normal visualized stomach. Normal small intestine. Normal colon. The appendix is visualized and appears normal. Normal abdominal aorta. Normal inferior vena cava. Normal retroperitoneum. Normal urinary bladder. Normal visualized prostate gland. Normal abdominal wall. Normal osseous structures. CT/Abdomen/Pelvis W IV Cont ONLY IMPRESSION: Normal enhanced CT of the abdomen and pelvis. Electronically Signed: Brooks Stack DO at 1:16 EDT Tel , Service support ,
== END 2020-07-26 03:08 | disposition home or self-care (01) ==
PROVIDERS: Emergency Provider Emergency Medicine; PCP Family Medicine
DX: R10.10 Upper abdominal pain, unspecified (principal); R11.0 Nausea; R19.7 Diarrhea, unspecified; M54.9 Dorsalgia, unspecified; E66.01 Morbid (severe) obesity due to excess calories; I10 Essential (primary) hypertension; E11.9 Type 2 diabetes mellitus without complications; F41.9 Anxiety disorder, unspecified; F32.9 Major depressive disorder, single episode, unspecified; Z79.4 Long term (current) use of insulin; Z79.899 Other long term (current) drug therapy
CPT/HCPCS: 74177; 80053; 81001; 83690; 84484; 85025; 93005; 96361; 96374; 96375; 99283; J7030; Q9967; A4216; J2405

== ENCOUNTER 2020-09-27 19:40 | Emergency (ER) | payer MEDICARE, SELFPAY ==
[2020-09-27 19:42] VITALS: BP 100/80; PULSE 152; RESP 23; TEMP 36.7; O2SAT 96; BMI 60.8
--- NOTE | 2020-09-27 20:05 | EKG12_ITS ---
Test Reason : CP Blood Pressure : / mmHG Vent. Rate : 151 BPM Atrial Rate : 136 BPM P-R Int : 000 ms QRS Dur : 086 ms QT Int : 286 ms P-R-T Axes : 000 -48 061 degrees QTc Int : 453 ms Supraventricular tachycardia Left axis deviation Abnormal ECG Confirmed by DAPHNEY WOODS, OJ ([id number]), content editor KVNG LUCERO ([id number]) on 09/30/2020 8:26:52 AM Referred By: Confirmed By:OJ SHELLEY MD
--- NOTE | 2020-09-27 20:05 | RAD_ITS ---
STUDY: X-RAY CHEST REASON FOR EXAM: Male, 55 years old. Chest pain TECHNIQUE: Single AP portable view of the chest. COMPARISON: January 19, 2020 FINDINGS: There are monitoring devices. There are mild interstitial increased opacities of the lungs. There is no demonstrated pleural abnormality. Normal size heart. Normal mediastinum and zoila. Normal visualized pulmonary arteries. Normal visualized aortic arch and descending thoracic aorta. Normal visualized thoracic spine. Normal visualized ribs, clavicles, and shoulders. There is no demonstrated abnormality of the visualized soft tissue structures of the upper abdomen. RAD/Chest 1 View (Portable) IMPRESSION: Mild interstitial edema or infiltrates. Electronically Signed: Frank eVla MD at 22:19 EDT , Service support ,
[2020-09-27 20:26] LABS: Absolute Lymphocyte Count 2.68 X10^3/uL (0.83-4.51); Absolute Neutrophil Count 8.3 X10^3/uL (2.0-7.7); Basophil# 0.08 X10^3/uL; Basophil% 0.7 % (0-1); Eosinophil# 0.22 X10^3/uL; Eosinophils% 1.8 % (0-5); Hematocrit 45.7 % (40-54); Lymphocyte # 2.68 X10^3/ul (0.83-4.51); Lymphocyte % 21.9 % (19-41); Mean Corp Hgb Conc 32.8 g/dL (32-36); Mean Corpuscular Hgb 30.2 pg (27.0-32.0); Mean Corpuscular Volume 92.1 fL (80-94); Mean Platelet Vol. 10.8 fl (6.2-12.0); Monocyte# 0.91 X10^3/uL; Monocyte% 7.4 % (0-10); NRBC Flagged by Analyzer 0 % (0-5); Neutrophil # 8.31 X10^3/uL (2.7-7.7); Neutrophil % 67.8 % (47-70); Platelet Count 300 K/mm3 (150-450); RBC Distribution Width CV 12.1 % (11.6-14.6); RBC Distribution Width SD 40.9 fl (35.1-43.9); Red Blood Count 4.96 M/mm3 (4.6-6.2); White Blood Count 12.3 K/mm3 (4.4-11.0)
[2020-09-27] MEDS: 0.9% Normal Saline 1,000 ML 150 ML IV (20:33)
[2020-09-27] MEDS: Adenosine 6 MG/2 ML Syringe IV (20:35)
[2020-09-27 20:37] VITALS: BP 161/106; PULSE 115; RESP 27; O2SAT 97
[2020-09-27 20:51] LABS: Anion Gap 8 (5-15); BUN 14 mg/dL (7-18); BUN/Creat Ratio 15.9 RATIO (10-20); Calcium,Total 9.4 mg/dL (8.5-10.1); Chloride 108 mmol/L (98-107); Creatinine, Serum 0.88 mg/dL (0.70-1.30); EST Glomerular Filtration Rate 96 mL/min (>60); Est Glom Filt Rate - Afr Amer 116 mL/min (>60); Estimated Creatinine Clearance 93.92 ml/min; Glucose 212 mg/dL (74-106); Potassium 4.1 mmol/L (3.5-5.1); Sodium Level 141 mmol/L (136-145); Thyroid Stim Hormone (TSH) 0.96 uIU/mL (0.358-3.74)
--- NOTE | 2020-09-27 20:56 | EKG12_ITS ---
Test Reason : REPEAT Blood Pressure : / mmHG Vent. Rate : 107 BPM Atrial Rate : 107 BPM P-R Int : 182 ms QRS Dur : 090 ms QT Int : 326 ms P-R-T Axes : 029 -44 057 degrees QTc Int : 435 ms Sinus tachycardia Left axis deviation Abnormal ECG Confirmed by DAPHNEY WOODS, OJ ([id number]), publications editor KVNG LUCERO ([id number]) on 09/30/2020 8:26:40 AM Referred By: Confirmed By:OJ SHELLEY MD
[2020-09-27] MEDS: Metoprolol Tartrate 25 MG Tablet PO (21:37)
[2020-09-27 21:38] VITALS: BP 151/91; PULSE 103; RESP 16; O2SAT 97
--- NOTE | 2020-09-27 23:17 | EDS_ITS ---
HPI History of Present Illness Chief Complaint: Chest Pain Informant: patient Narrative Narrative: 55-year-old male states that around 1530 hrs. this afternoon he developed a racing heartbeat. It was not going away. He states he has had racing heartbeat in the past and was felt to be anxiety. Because it was not going away he is beginning to have some chest discomfort with that he called EMS. They note a SVT on prehospital EKG. Patient has a history of hypertension diabetes and hypothyroidism. [facility] Medical History Anxiety Depression Diabetes Hypertension Hypothyroidism Home Medications buspirone 10 mg PO TID 07/25/20 [History Last Taken Unknown] insulin glargine U-300 conc 38 unit SQ DAILY 07/25/20 [History Last Taken Unknown] levothyroxine 50 mcg PO DAILY 07/25/20 [History Last Taken Unknown] levothyroxine 200 mcg PO DAILY 07/25/20 [History Last Taken Unknown] lisinopril 20 mg PO DAILY 07/25/20 [History Last Taken Unknown] metformin 1,000 mg PO BID 07/25/20 [History Last Taken Unknown] paroxetine HCl 40 mg PO DAILY 07/25/20 [History Last Taken Unknown] rosuvastatin 40 mg PO QHS 07/25/20 [History Last Taken Unknown] pantoprazole 40 mg PO DAILY #14 tab 07/26/20 [Rx Last Taken Unknown] aspirin [Aspir-81] 81 mg PO DAILY 09/27/20 [History Last Taken Unknown] melatonin 10 mg PO QHS 09/27/20 [History Last Taken Unknown] metoprolol succinate 25 mg PO DAILY #30 tab 09/27/20 [Rx Last Taken Unknown] multivitamin 1 cap DAILY 09/27/20 [History Last Taken Unknown] Allergy/AdvReac Type Severity Reaction Status Date / Time escitalopram [From Lexapro] AdvReac Rash Verified 09/27/20 19:46 Surgical History History of hip surgery Social History (Updated 09/27/20 @ 23:[address] Ethan Musa DO) Smoking Status: Never smoker substance use type: does not use ROS ROS ED Constitutional Constitutional ED: Denies chills or weight loss Eyes Eyes: Denies change in vision or diplopia ENT ENT ED: Denies ear pain, rhinorrhea or sore throat Cardiovascular Cardiovascular: Reports chest pain, palpitations and racing heartbeat; Denies orthopnea Respiratory/Chest Respiratory/Chest: Denies cough, dyspnea or orthopnea Gastrointestinal Gastrointestinal: Denies abdominal pain, diarrhea, nausea or vomiting Genitourinary Genitourinary ED: Denies dysuria, hematuria or urinary frequency Musculoskeletal Musculoskeletal: Denies arthralgias or myalgias Integumentary Denies abscess or rash Neurologic Neurologic: Denies headache(s) or weakness Psychiatric Psychiatric: Denies anxiety, depression, suicidal ideation or suicidal thoughts Endocrine Endocrinology: Denies polydipsia, polyphagia or polyuria Allergic/Immunologic Allergic/Immunologic ED: Denies mouth swelling, tongue swelling or urticaria EXAM Physical Exam Const Vital Signs: 09/27/20 19:42 09/27/20 20:37 09/27/20 21:38 Temperature 98.1 F Temperature Source Temporal Pulse Rate 152 H 115 H 103 H Respiratory Rate 23 H 27 H 16 Blood Pressure 100/80 161/106 H 151/91 H Blood Pressure Mean 86 124 Pulse Ox 96 97 97 Oxygen Delivery Method Room Air Room Air Positive well nourished and well developed General Appearance ED: well developed HEENT Reports normocephalic, head/scalp atraumatic and moist mucous membranes Eyes PERRL and EOMs intact bilaterally Neck no lymphadenopathy, supple and no JVD Resp normal respiratory effort and clear to auscultation bilaterally Cardio regular rate and no murmurs Rate: tachycardic GI normal to inspection, nondistended, normoactive bowel sounds and non-tender Palpation: soft Back/Spine no CVA tenderness and normal ROM Extremity normal to inspection General Extremety ED: Negative for edema General Extremity: Negative for edema Neuro oriented x3 and CN's II-XII intact bilaterally Sensorium / Orientation: alert Motor Exam: strength 5/5 throughout Psych mental status grossly normal Mood & Affect: Negative for depressed or tearful Skin no rashes or lesions noted and no wounds Heart Score History: Slightly/Non-Suspicious ECG: Normal Age: >45 - <65 years Risk Factors: 1 or 2 Risk Factors Troponin: </= Normal Limit Score: 2 MDM MDM MDM Narrative Medical decision making narrative: Patient seem to be pretty consistently at 151 on the monitor. Did not see any flutter waves or evidence of A. fib. Therefore 6 mg of adenosine was infused which resulted in return to normal sinus rhythm. During the standard pause there was no flutter or fibrillation noted on the monitor. He is remained in a normal sinus rhythm. EKG confirms sinus tachycardia. Basic blood work was negative. My interpretation of the chest x- ray is mild vascular congestion. This is most likely due to the tachycardia. P atient will be started on metoprolol and advised to follow-up with cardiology. Return if worsening or concerns Lab Data Labs: Laboratory Results - last 24 hr 09/27/20 09/27/20 20:20 20:20 WBC 12.3 H RBC 4.96 Hgb 15.0 Hct 45.7 MCV 92.1 MCH 30.2 MCHC 32.8 RDW Std Deviation 40.9 RDW Coeff of Juan 12.1 Plt Count 300 MPV 10.8 Immature Gran % (Auto) 0.400 Neut % (Auto) 67.8 Lymph % (Auto) 21.9 [place] % (Auto) 7.4 Eos % (Auto) 1.8 Baso % (Auto) 0.7 Absolute Neuts (auto) 8.3 H Absolute Lymphs (auto) 2.68 Nucleated RBC % 0 Sodium 141 Potassium 4.1 Chloride 108 H Carbon Dioxide 25.0 Anion Gap 8 BUN 14 Creatinine 0.88 Estim Creat Clear Calc 93.92 Est GFR (MDRD) Af Amer 116 Est GFR (MDRD) Non-Af 96 BUN/Creatinine Ratio 15.9 Glucose 212 H Calcium 9.4 Magnesium 2.0 Troponin I < 0.015 TSH 0.96 Radiography Diagnostic Testing: Radiology Impression Chest X-Ray 09/27/20 20:05 IMPRESSION: Mild interstitial edema or infiltrates. Electronically Signed: Frank Vela MD at 22:19 EDT , Service support , Discharge Plan Triage Chief Complaint: Chest Pain ED Provider: Ethan Musa Dx/Rx/DC Orders Clinical Impression: SVT (supraventricular tachycardia) Instructions: ED Tachycardia: PAT Prescriptions: New metoprolol succinate 25 mg tablet extended release 24 hr 25 mg PO DAILY Qty: 30 RF: 0 No Action metformin 500 MG tablet 1,000 mg PO BID RF: 0 insulin glargine U-300 conc 300 UNIT/ML insulin pen 38 unit SQ DAILY RF: 0 levothyroxine 50 MCG tablet 50 mcg PO DAILY RF: 0 buspirone 10 MG tablet 10 mg PO TID RF: 0 levothyroxine 200 MCG tablet 200 mcg PO DAILY RF: 0 lisinopril 5 MG tablet 20 mg PO DAILY RF: 0 paroxetine HCl 40 MG tablet 40 mg PO DAILY RF: 0 rosuvastatin 40 MG tablet 40 mg PO QHS RF: 0 pantoprazole 40 MG tablet 40 mg PO DAILY Qty: 14 RF: 0 aspirin [Aspir-81] 81 mg Tablet,Delayed Release (Dr/Ec) 81 mg PO DAILY RF: 0 multivitamin Capsule 1 cap DAILY RF: 0 melatonin 10 mg Tablet 10 mg PO QHS RF: 0 Primary Care Provider: Foster Reyes Referrals: Foster Reyes MD [Primary Care Provider] - As Needed Giovanny Sal MD [STAFF PHYSICIAN] - As soon as possible (Call to arrange follow-up) Disposition Disposition: Home, self care Discharge Date/Time: 09/27/20 21:40
== END 2020-09-27 21:40 | disposition home or self-care (01) ==
PROVIDERS: Emergency Provider Emergency Medicine; PCP Family Medicine
DX: I47.1 Supraventricular tachycardia (principal); I10 Essential (primary) hypertension; E11.9 Type 2 diabetes mellitus without complications; E03.9 Hypothyroidism, unspecified; F41.9 Anxiety disorder, unspecified; F32.9 Major depressive disorder, single episode, unspecified; Z79.4 Long term (current) use of insulin; Z79.899 Other long term (current) drug therapy
CPT/HCPCS: 71045; 80048; 83735; 84443; 84484; 85025; 93005; 99285; J7030; A4216; J0153

== ENCOUNTER → 2020-11-03 15:08 | Outpatient (CLI) | payer MEDICARE, SELFPAY ==
[2020-11-03 17:40] LABS: Absolute Lymphocyte Count 2.01 X10^3/uL (0.83-4.51); Absolute Neutrophil Count 4.7 X10^3/uL (2.0-7.7); Basophil# 0.05 X10^3/uL; Basophil% 0.7 % (0-1); Eosinophil# 0.16 X10^3/uL; Eosinophils% 2.1 % (0-5); Hematocrit 44.1 % (40-54); Hemoglobin 14.4 g/dL (13.0-16.5); Lymphocyte # 2.01 X10^3/ul (0.83-4.51); Lymphocyte % 26.6 % (19-41); Mean Corp Hgb Conc 32.7 g/dL (32-36); Mean Corpuscular Hgb 29.7 pg (27.0-32.0); Mean Corpuscular Volume 90.9 fL (80-94); Mean Platelet Vol. 11.5 fl (6.2-12.0); Monocyte# 0.62 X10^3/uL; Monocyte% 8.2 % (0-10); NRBC Flagged by Analyzer 0 % (0-5); Platelet Count 275 K/mm3 (150-450); RBC Distribution Width CV 12.1 % (11.6-14.6); RBC Distribution Width SD 40.3 fl (35.1-43.9); Red Blood Count 4.85 M/mm3 (4.6-6.2); White Blood Count 7.6 K/mm3 (4.4-11.0)
[2020-11-03 18:08] LABS: ALB/GLOB Ratio 0.9 RATIO (0.9-2.4); AST(SGOT) 40 U/L (15-37); Alanine Aminotransfer ALT/SGPT 52 U/L (16-61); Albumin, Serum 3.5 g/dL (3.2-5.0); Alkaline Phosphatase 131 U/L (45-117); Anion Gap 9 (5-15); BUN 12 mg/dL (7-18); BUN/Creat Ratio 14.1 RATIO (10-20); Calcium,Total 9.1 mg/dL (8.5-10.1); Chloride 101 mmol/L (98-107); Cholesterol 155 mg/dL (200); Creatinine, Serum 0.85 mg/dL (0.70-1.30); EST Glomerular Filtration Rate 100 mL/min (>60); Est Glom Filt Rate - Afr Amer 121 mL/min (>60); Glucose 184 mg/dL (74-106); High Density Lipoprotein 55 mg/dL; Potassium 4.5 mmol/L (3.5-5.1); Protein, Total 7.5 g/dL (6.4-8.2); Sodium Level 137 mmol/L (136-145); T4 Free Direct 1.44 ng/dL (0.76-1.46); Triglycerides 163 mg/dL; Very Low Density Lipoprotein 33 mg/dL (5-40)
== END ==
LOC: MFPLAB 15:09
PROVIDERS: PCP Family Medicine; Referring Provider Family Medicine; Visit Provider Family Medicine
DX: E03.9 Hypothyroidism, unspecified (principal); E11.9 Type 2 diabetes mellitus without complications
CPT/HCPCS: 36415; 80053; 80061; 83036; 84439; 84443; 85025

== ENCOUNTER → 2021-02-02 12:11 | Outpatient (CLI) | payer MEDICARE, SELFPAY ==
[2021-02-02 14:52] LABS: Absolute Lymphocyte Count 2.38 X10^3/uL (0.83-4.51); Basophil# 0.07 X10^3/uL; Basophil% 0.7 % (0-1); Eosinophil# 0.25 X10^3/uL; Eosinophils% 2.6 % (0-5); Hematocrit 45.6 % (40-54); Hemoglobin 14.9 g/dL (13.0-16.5); Lymphocyte # 2.38 X10^3/ul (0.83-4.51); Lymphocyte % 24.6 % (19-41); Mean Corp Hgb Conc 32.7 g/dL (32-36); Mean Corpuscular Hgb 30.2 pg (27.0-32.0); Mean Corpuscular Volume 92.5 fL (80-94); Mean Platelet Vol. 11.2 fl (6.2-12.0); Monocyte# 0.92 X10^3/uL; Monocyte% 9.5 % (0-10); NRBC Flagged by Analyzer 0 % (0-5); Neutrophil # 5.99 X10^3/uL (2.7-7.7); Platelet Count 315 K/mm3 (150-450); RBC Distribution Width CV 12.6 % (11.6-14.6); RBC Distribution Width SD 43.1 fl (35.1-43.9); Red Blood Count 4.93 M/mm3 (4.6-6.2); White Blood Count 9.7 K/mm3 (4.4-11.0)
[2021-02-02 15:13] LABS: Hemoglobin A1c 7.6 % (3.8-5.6)
[2021-02-02 15:16] LABS: ALB/GLOB Ratio 0.9 RATIO (0.9-2.4); AST(SGOT) 44 U/L (15-37); Alanine Aminotransfer ALT/SGPT 51 U/L (16-61); Albumin, Serum 3.5 g/dL (3.2-5.0); Alkaline Phosphatase 120 U/L (45-117); Anion Gap 9 (5-15); BUN 15 mg/dL (7-18); BUN/Creat Ratio 15.7 RATIO (10-20); Calcium,Total 9.4 mg/dL (8.5-10.1); Chloride 104 mmol/L (98-107); Cholesterol 147 mg/dL (200); Creatinine, Serum 0.96 mg/dL (0.70-1.30); EST Glomerular Filtration Rate 87 mL/min (>60); Est Glom Filt Rate - Afr Amer 106 mL/min (>60); Globulin 4.1 g/dL (2.2-4.2); Glucose 160 mg/dL (74-106); High Density Lipoprotein 50 mg/dL; Potassium 4.4 mmol/L (3.5-5.1); Protein, Total 7.6 g/dL (6.4-8.2); Sodium Level 137 mmol/L (136-145); T4 Free Direct 1.12 ng/dL (0.76-1.46); Triglycerides 201 mg/dL; Very Low Density Lipoprotein 40 mg/dL (5-40)
[2021-02-02 15:22] LABS: Microalbumin,Random Urine 18.4 mg/L (NO RANGE EST.); Microalbumin:Creatinine Ratio 9.6 mg/g CRE (<30 mg/g CRE)
== END ==
LOC: MTLAB 12:13
PROVIDERS: PCP Family Medicine; Referring Provider Family Medicine; Visit Provider Family Medicine
DX: E03.9 Hypothyroidism, unspecified (principal); E11.69 Type 2 diabetes mellitus with other specified complication; E11.59 Type 2 diabetes mellitus with other circulatory complications
CPT/HCPCS: 36415; 80053; 80061; 82043; 82570; 83036; 83735; 84439; 84443; 85025

== ENCOUNTER → 2021-03-08 | Outpatient (CLI) | payer MEDICARE, SELFPAY ==
[2021-03-08 21:12] LABS: Probe Check PASS; Specimen Processing Control PASS
== END | disposition home or self-care (01) ==
PROVIDERS: PCP Family Medicine; Visit Provider Family Medicine
DX: U07.1 COVID-19 (principal)
CPT/HCPCS: 87635; U0005; U0003

== ENCOUNTER 2021-03-13 16:32 | Outpatient (CLI) | payer MEDICARE, SELFPAY ==
[2021-03-13 16:55] VITALS: BP 145/96; PULSE 62; RESP 20; TEMP 36.9; O2SAT 100; BMI 56.2
[2021-03-13] MEDS: 0.9% Saline Lock 10 ML Syringe IV (17:29)
[2021-03-13 18:00] VITALS: BP 138/96; PULSE 73; RESP 18; TEMP 36.7; O2SAT 100
[2021-03-13 18:47] VITALS: BP 155/90; PULSE 69; RESP 18; TEMP 36.4; O2SAT 97
== END 2021-03-13 20:35 | disposition home or self-care (01) ==
LOC: MS3OUT 16:33 → MS3 16:34
PROVIDERS: PCP Family Medicine; Referring Provider Nurse Practitioner Adult Health; Visit Provider Nurse Practitioner Adult Health
DX: Z23 Encounter for immunization (principal); U07.1 COVID-19
CPT/HCPCS: J7050; M0245; Q0245; A4216

== ENCOUNTER 2021-04-16 18:36 | Emergency (ER) | payer MEDICARE, SELFPAY ==
[2021-04-16 18:36] VITALS: BP 180/84; PULSE 85; RESP 16; TEMP 36; BMI 53.1
--- NOTE | 2021-04-16 18:52 | EX.ED.DYSGE1 ---
HPI History of Present Illness Chief Complaint: Abscess Narrative Narrative: Patient with past medical history of diabetes, hypertension, presents with abscess on his left hip that he has had for the last few days. He states his symptoms began Saturday, 5 days ago. The area is sore. He has not had abscesses for few years. He states it started out as a small, white dot, and has rapidly expanded. He is unsure if there has been any purulent drainage. He denies any fevers or chills. No nausea or vomiting, no other symptoms. He states it sore to the touch. [facility] Medical History Anxiety Depression Diabetes Essential hypertension Hypertension Hypothyroidism RANCHO on CPAP Home Medications levothyroxine 200 mcg PO DAILY 07/25/20 [History Last Taken Unknown] metformin 1,000 mg PO BID 07/25/20 [History Last Taken Unknown] paroxetine HCl 40 mg PO DAILY 07/25/20 [History Last Taken Unknown] rosuvastatin 40 mg PO QHS 07/25/20 [History Last Taken Unknown] aspirin [Aspir-81] 81 mg PO DAILY 09/27/20 [History Last Taken Unknown] multivitamin 1 cap DAILY 09/27/20 [History Last Taken Unknown] buspirone 10 mg tablet 10 mg PO BID PRN tab 11/22/20 [History Last Taken Unknown] lisinopril 20 mg tablet 20 mg PO DAILY 11/22/20 [History Last Taken Unknown] insulin glargine U-300 conc 300 unit/mL (1.5 mL) subcutaneous pen 44 unit SUBCUT DAILY ml 11/24/20 [History Last Taken Unknown] levothyroxine 50 mcg tablet 50 mcg PO DAILY tab 11/24/20 [History Last Taken Unknown] melatonin 10 mg tablet 5 mg PO QHS tab 11/24/20 [History Last Taken Unknown] metoprolol succinate 50 mg tablet,extended release 24 hr 50 mg PO DAILY #90 tab 11/24/20 [Rx Last Taken Unknown] semaglutide 0.5 mg SUBCUT QWEEK ml 11/24/20 [History Last Taken Unknown] sulfamethoxazole-trimethoprim [Bactrim DS] 1 tab PO BID #14 tab 04/16/21 [Rx Last Taken Unknown] Allergy/AdvReac Type Severity Reaction Status Date / Time escitalopram [From Lexapro] AdvReac Rash Verified 04/16/21 18:37 Family History Father Hypertension Mother Myocardial infarction Diabetes Hypertension Sister Diabetes Surgical History History of hip surgery Social History Smoking Status: Never smoker alcohol intake: never substance use type: does not use caffeine: Yes Type: carbonated beverages Number of servings: 1 and tea Number of servings: 3 ROS ROS ED ROS Narrative Constitutional: No fever, no chills. HEENT: No sore throat. No neck pain. No loss of vision. No rhinorrhea. Cardiovascular: No chest pain. No palpitations. No pedal edema. Respiratory: No cough, no shortness of breath. Abdominal: No abdominal pain. No nausea. No vomiting. Genitourinary: No dysuria. No hematuria. Musculoskeletal: No myalgias. No arthralgias. Neurologic: No headaches. No dizziness. No lightheadedness. Skin: No rash. No change in color. Lesion/abscess left thigh/hip. Psychiatric: No depression. No anxiety. EXAM Physical Exam Narrative Exam Narrative: Afebrile. Vital signs noted. HEENT: Normocephalic. Atraumatic. PERRL, EOMI. Neck soft and supple. No point tenderness or step off. Cardiovascular: Regular rate and rhythm. No murmurs, rubs, or gallops appreciated. Respiratory: No tachypnea. Lungs clear to auscultation bilaterally. Gastrointestinal: Abdomen soft, obese, nontender, with normoactive bowel sounds. No rebound or guarding. Neurological: Awake. Alert. Nonfocal, nonlateralizing. Skin: No rash. Inspection of the left hip/lateral thigh does reveal more of an ulceration with surrounding induration. It is approximately 1 cm in size. No noted fluctuance. No current purulent drainage. He has full range of motion of his hip and knee. Musculoskeletal: No pedal edema. Full range of motion extremities. Const Vital Signs: 04/16/21 18:36 Temperature 96.8 F L Temperature Source Temporal Pulse Rate 85 Respiratory Rate 16 Blood Pressure 180/84 H Blood Pressure Mean 116 MDM MDM MDM Narrative Medical decision making narrative: Although the area appears more ulcerated, patient feels as if there may be fluid encapsulated. He was given his first dose of Bactrim here in the emergency department. He would like incision and drainage. Lidocaine 1% will be used as a local anesthetic. I will use a #11 blade to incise the area/stab incision. I do feel that he would merit at least 10 days of antibiotics given his skin ulceration and subcutaneous abscess. Area was cleansed, lidocaine 1% was used as a local anesthetic. Star-shaped incision was made using a #11 blade. There is a small amount of purulent drainage and larger amount of serous to serosanguineous drainage. The area was deloculated and irrigated. Small amount of packing, 2 tailed was inserted. He was told to remove this in 48 hours or return to the emergency department, or follow-up with his primary care provider. He will take [id number] analgesics. He states after incision and drainage he feels improved. I wrote him a prescription for Bactrim for the next week to take twice a day. I feel he can be discharged safely home with follow-up. Return instructions were reviewed. Disposition is discharged home in improved and stable condition. Procedures Other Procedures Procedure(s): Incision and drainage Discharge Plan Triage Chief Complaint: Abscess ED Provider: Oleg Toledo Dx/Rx/DC Orders Clinical Impression: Abscess, Sebaceous cyst Instructions: Abscess Drainage, ED Abscess Incision And Drainage Prescriptions: New sulfamethoxazole-trimethoprim [Bactrim DS] 800-160 mg tablet 1 tab PO BID Qty: 14 RF: 0 No Action metoprolol succinate 50 mg tablet extended release 24 hr 50 mg PO DAILY Qty: 90 RF: 3 lisinopril 20 mg tablet 20 mg PO DAILY RF: 0 Ozempic 0.25 mg or 0.5 mg(2 mg/1.5 mL) pen injector 0.5 mg subcut QWEEK RF: 0 metformin 500 MG tablet 1,000 mg PO BID RF: 0 levothyroxine 200 MCG tablet 200 mcg PO DAILY RF: 0 paroxetine HCl 40 MG tablet 40 mg PO DAILY RF: 0 rosuvastatin 40 MG tablet 40 mg PO QHS RF: 0 levothyroxine 50 mcg tablet 50 mcg PO DAILY RF: 0 insulin glargine U-300 conc 300 unit/mL (1.5 mL) insulin pen 44 unit subcut DAILY RF: 0 aspirin [Aspir-81] 81 mg Tablet,Delayed Release (Dr/Ec) 81 mg PO DAILY RF: 0 multivitamin Capsule 1 cap DAILY RF: 0 melatonin 10 mg tablet 5 mg PO QHS RF: 0 buspirone 10 mg tablet 10 mg PO BID PRN (Reason: .) RF: 0 Primary Care Provider: Foster Reyes Referrals: Foster Reyes MD [Primary Care Provider] - 04/18/21 Activity Restrictions/Additional Instructions: Remove packing from your incision site in 2 days. Do not leave in for longer than 48 hours. Antibiotics as directed. Disposition Disposition: Home, Self Care
[2021-04-16] MEDS: Smz/Tmp Ds Tablet 1 TABLET PO (19:00)
[2021-04-16] MEDS: Lidocaine 1% (20 ml mdv) 20 ML Vial INFILT (19:19)
[2021-04-16 20:15] VITALS: PULSE 78; TEMP 36.4; O2SAT 98
--- NOTE | 2021-04-16 20:16 | ED.RN ---
aware to remove packing Saturday at 1999. Non-stick dressing applied and patient sent home with a few extra to get started at home. Toleated well. Area is clean and covered. Packing tail is present. Minimal bleeding
== END 2021-04-16 20:17 | disposition home or self-care (01) ==
PROVIDERS: Emergency Provider Emergency Medicine; PCP Family Medicine
DX: L72.3 Sebaceous cyst (principal); L02.416 Cutaneous abscess of left lower limb; I10 Essential (primary) hypertension; E03.9 Hypothyroidism, unspecified; E11.9 Type 2 diabetes mellitus without complications; F32.A Depression, unspecified; F41.9 Anxiety disorder, unspecified; G47.33 Obstructive sleep apnea (adult) (pediatric); Z79.4 Long term (current) use of insulin; Z79.82 Long term (current) use of aspirin; Z79.899 Other long term (current) drug therapy
CPT/HCPCS: 10060; 99281

== ENCOUNTER 2021-05-03 15:33 | Outpatient (CLI) | payer MEDICARE, SELFPAY ==
[2021-05-03 15:54] LABS: Bacteria 0 SEEN /hpf (None Seen); Mucous, Urine 0 SEEN /hpf (<or=2+); Red Blood Cells-Urine 0 SEEN /hpf (0-5); Squamous Epithelial Cells - UA 0 SEEN /hpf (0-5); White Blood Cells 0 SEEN /hpf (0-5)
[2021-05-03 18:05] LABS: Absolute Lymphocyte Count 2.96 X10^3/uL (0.83-4.51); Absolute Neutrophil Count 4.1 X10^3/uL (2.0-7.7); Basophil# 0.08 X10^3/uL; Eosinophil# 0.21 X10^3/uL; Eosinophils% 2.6 % (0-5); Hematocrit 44.9 % (40-54); Hemoglobin 14.2 g/dL (13.0-16.5); Lymphocyte # 2.96 X10^3/ul (0.83-4.51); Lymphocyte % 37.2 % (19-41); Mean Corp Hgb Conc 31.6 g/dL (32-36); Mean Corpuscular Hgb 29.7 pg (27.0-32.0); Mean Corpuscular Volume 93.9 fL (80-94); Mean Platelet Vol. 11.4 fl (6.2-12.0); Monocyte# 0.54 X10^3/uL; Monocyte% 6.8 % (0-10); NRBC Flagged by Analyzer 0 % (0-5); Neutrophil # 4.13 X10^3/uL (2.7-7.7); Neutrophil % 51.9 % (47-70); Platelet Count 386 K/mm3 (150-450); RBC Distribution Width CV 12.5 % (11.6-14.6); RBC Distribution Width SD 43.2 fl (35.1-43.9); Red Blood Count 4.78 M/mm3 (4.6-6.2)
[2021-05-03 18:10] LABS: Color, Urine Yellow (Yellow); Glucose, Dipstick 1000 mg/dl (Normal); Ketone-Dipstick Negative (Negative); Leukocyte Esterase-Dipstick Negative /ul (Negative); Nitrite-Dipstick Negative (Negative); Occult Blood-Urine Negative /ul (Negative); Protein-Dipstick 15 mg/dl (Negative); Specific Gravity, Urine 1.025 (1.002-1.030); Urine Bilirubin Dipstick Negative (Negative); Urine Clarity Clear (Clear); Urine Urobilinogen Normal (Normal)
[2021-05-03 18:27] LABS: ALB/GLOB Ratio 0.8 RATIO (0.9-2.4); AST(SGOT) 31 U/L (15-37); Alanine Aminotransfer ALT/SGPT 60 U/L (16-61); Albumin, Serum 3.4 g/dL (3.2-5.0); Alkaline Phosphatase 141 U/L (45-117); Anion Gap 9 (5-15); BUN 16 mg/dL (7-18); BUN/Creat Ratio 17.1 RATIO (10-20); Calcium,Total 9.6 mg/dL (8.5-10.1); Chloride 101 mmol/L (98-107); Cholesterol 186 mg/dL (200); Creatinine, Serum 0.94 mg/dL (0.70-1.30); EST Glomerular Filtration Rate 89 mL/min (>60); Est Glom Filt Rate - Afr Amer 108 mL/min (>60); Globulin 4.2 g/dL (2.2-4.2); Glucose 310 mg/dL (74-106); High Density Lipoprotein 47 mg/dL; Magnesium 2.4 mg/dL (1.6-2.6); Potassium 4.8 mmol/L (3.5-5.1); Protein, Total 7.6 g/dL (6.4-8.2); Sodium Level 136 mmol/L (136-145); Triglycerides 295 mg/dL; Very Low Density Lipoprotein 59 mg/dL (5-40)
[2021-05-03 18:37] LABS: Hemoglobin A1c 10.1 % (3.8-5.6)
[2021-05-03 18:47] LABS: Microalbumin:Creatinine Ratio 16.2 mg/g CRE (<30 mg/g CRE)
== END 2021-05-03 23:59 | disposition short-term general hospital (02) ==
LOC: MFPLAB 15:51
PROVIDERS: PCP Family Medicine; Referring Provider Family Medicine; Visit Provider Family Medicine
DX: E11.59 Type 2 diabetes mellitus with other circulatory complications (principal); E11.69 Type 2 diabetes mellitus with other specified complication; I47.1 Supraventricular tachycardia; E03.9 Hypothyroidism, unspecified
CPT/HCPCS: 36415; 80053; 80061; 81001; 82043; 82570; 83036; 83735; 84439; 84443; 85025

== ENCOUNTER 2021-06-12 18:50 | Emergency (ER) | payer MEDICARE, SELFPAY ==
[2021-06-12 18:51] VITALS: BP 196/105; PULSE 81; RESP 21; TEMP 36; O2SAT 97; BMI 40.7
[2021-06-12 19:04] VITALS: PULSE 82; RESP 18; O2SAT 97
--- NOTE | 2021-06-12 19:11 | EX.ED.VIS.UR ---
HPI HPI - URI History of Present Illness Chief Complaint: Cough Detail of Chief Complaint: Nonproductive cough, rhinorrhea Informant: patient Onset/Context/Timing Onset: Days (Onset of illness Saturday) Context: Sudden Onset Timing: Continuous Quality: Upper respiratory Location: Respiratory Current Severity: Mild Maximum Severity: Mild Worsened by: Not Worsened By Swallowing, Eating Solids and Drinking Liquids Associated Symptoms Associated Symptoms: Positive for Nasal Congestion, Shortness of Breath and Nonproductive cough; Negative for Headache, Sinus Pressure, Myalgias, Nausea, Vomiting, Diarrhea, Chest Pain, Hemoptysis and Productive Cough Narrative Narrative: Patient is a 56-year-old morbidly obese male with history obstructive sleep apnea, high retention and type 2 diabetes who is Covid recovered and presents with upper restaurant symptoms started Saturday. He was exposed to his grandchild who was diagnosed with a viral illness. He denies headache, visual, ocular auditory symptoms. He denies ringing in his ears decreased hearing. He denies chest discomfort. He denies nausea, vomiting diarrhea. He denies urologic symptoms. Prior similar symptoms: Yes Recent Illness/Hospitalization: No ROS ROS ED Constitutional Constitutional ED: Reports sweats and weight loss; Denies chills, fever(s) or subjective Eyes Eyes: Denies blurry vision, change in vision or diplopia ENT ENT ED: Reports rhinorrhea and sore throat; Denies ear pain Cardiovascular Cardiovascular: Denies chest pain, orthopnea, palpitations, paroxysmal nocturnal dyspnea or racing heartbeat Respiratory/Chest Respiratory/Chest: Reports cough and dyspnea; Denies dyspnea on exertion, orthopnea, paroxysmal nocturnal dyspnea or sputum Gastrointestinal Gastrointestinal: Denies abdominal pain, constipation, diarrhea, nausea or vomiting Genitourinary Genitourinary ED: Denies dysuria, hematuria or urinary frequency Musculoskeletal Musculoskeletal: Denies arthralgias, back pain, myalgias or neck pain Integumentary Denies rash Neurologic Neurologic: Denies headache(s) or weakness Endocrine Endocrinology: Denies polydipsia, polyphagia or polyuria [facility] Medical History Anxiety Depression Diabetes Essential hypertension Hypertension Hypothyroidism RANCHO on CPAP Home Medications levothyroxine 200 mcg PO DAILY 07/25/20 [History Last Taken Unknown] metformin 1,000 mg PO BID 07/25/20 [History Last Taken Unknown] paroxetine HCl 40 mg PO DAILY 07/25/20 [History Last Taken Unknown] rosuvastatin 40 mg PO QHS 07/25/20 [History Last Taken Unknown] aspirin [Aspir-81] 81 mg PO DAILY 09/27/20 [History Last Taken Unknown] multivitamin 1 cap DAILY 09/27/20 [History Last Taken Unknown] buspirone 10 mg tablet 10 mg PO BID PRN tab 11/22/20 [History Last Taken Unknown] lisinopril 20 mg tablet 20 mg PO DAILY 11/22/20 [History Last Taken Unknown] insulin glargine U-300 conc 300 unit/mL (1.5 mL) subcutaneous pen 46 unit SUBCUT DAILY ml 11/24/20 [History Last Taken Unknown] levothyroxine 50 mcg tablet 50 mcg PO DAILY tab 11/24/20 [History Last Taken Unknown] melatonin 10 mg tablet 5 mg PO QHS tab 11/24/20 [History Last Taken Unknown] metoprolol succinate 50 mg tablet,extended release 24 hr 50 mg PO DAILY #90 tab 11/24/20 [Rx Last Taken Unknown] semaglutide 1 mg SUBCUT QWEEK ml 11/24/20 [History Last Taken Unknown] Allergy/AdvReac Type Severity Reaction Status Date / Time escitalopram [From Lexapro] AdvReac Rash Verified 06/12/21 18:51 Family History Father Hypertension Mother Myocardial infarction Diabetes Hypertension Sister Diabetes Surgical History History of hip surgery Social History (Updated 06/12/21 @ 19:[address] Rey Torres MD) household members: none Smoking Status: Never smoker alcohol intake: never substance use type: does not use caffeine: Yes Type: carbonated beverages Number of servings: 1 and tea Number of servings: 3 EXAM Physical Exam Const Vital Signs: 06/12/21 18:51 06/12/21 19:04 06/12/21 19:09 Temperature 96.8 F L Temperature Source Temporal Pulse Rate 81 82 Respiratory Rate 21 H 18 Respiratory Effort Short of Breath Respiratory Pattern Normal Blood Pressure 196/105 H Blood Pressure Mean 135 Pulse Ox 97 97 Oxygen Delivery Method Room Air Room Air Positive well nourished, well developed and obese General Appearance ED: well developed, diaphoretic, NAD and other Patient states it is normal for him to be diaphoretic. ; Negative for cyanotic or pallor Nutritional Appearance: obese HEENT Reports TM's clear and moist mucous membranes normocephalic and atraumatic Face and Sinus: Negative for facial tenderness External Ear: external ears normal External Auditory Canal: EAC's normal Tympanic Membrane ED: Yes TM's clear Throat: posterior oropharynx normal Eyes PERRL and EOMs intact bilaterally General Eye ED: Negative for pale conjunctiva or scleral icterus Neck no lymphadenopathy, supple, no meningeal signs and no JVD Resp normal respiratory effort and clear to auscultation bilaterally Auscultation: Negative for rales, rhonchi or wheezes Cardio S1 normal heart sound, S2 normal heart sound and no murmurs Rate: regular rate Rhythm: regular rhythm GI non-tender and non-distended Auscultation: normoactive bowel sounds Palpation: soft Back/Spine no CVA tenderness Extremity normal to inspection and full ROM General Extremety ED: Negative for cyanosis or tenderness General Extremity: Negative for cyanosis Neuro oriented x3 and CN's II-XII intact bilaterally Sensorium / Orientation: alert Psych mental status grossly normal Skin General Skin Exam: Negative for jaundice or pallor Lesions: no lesions Rashes: no rashes MDM MDM MDM Narrative Medical decision making narrative: SPECT patient has acute viral bronchitis. This was most medical problems will obtain chest x-ray to rule out pneumonia. Radiography Diagnostic Testin view chest x-ray reveals no evidence of pneumonia. Inspiratory volume is low which makes film difficult to read. There is no obvious effusion. Cardiac silhouette is unremarkable. Borderline cardiomegaly. Ostia structures are unremarkable. Discharge Plan Triage Chief Complaint: Cough ED Provider: Rey Torres Dx/Rx/DC Orders Clinical Impression: Acute bronchitis Instructions: Acute Bronchitis Prescriptions: No Action metoprolol succinate 50 mg tablet extended release 24 hr 50 mg PO DAILY Qty: 90 RF: 3 lisinopril 20 mg tablet 20 mg PO DAILY RF: 0 Ozempic 0.25 mg or 0.5 mg(2 mg/1.5 mL) pen injector 1 mg subcut QWEEK RF: 0 metformin 500 MG tablet 1,000 mg PO BID RF: 0 levothyroxine 200 MCG tablet 200 mcg PO DAILY RF: 0 paroxetine HCl 40 MG tablet 40 mg PO DAILY RF: 0 rosuvastatin 40 MG tablet 40 mg PO QHS RF: 0 levothyroxine 50 mcg tablet 50 mcg PO DAILY RF: 0 insulin glargine U-300 conc 300 unit/mL (1.5 mL) insulin pen 46 unit subcut DAILY RF: 0 aspirin [Aspir-81] 81 mg Tablet,Delayed Release (Dr/Ec) 81 mg PO DAILY RF: 0 multivitamin Capsule 1 cap DAILY RF: 0 melatonin 10 mg tablet 5 mg PO QHS RF: 0 buspirone 10 mg tablet 10 mg PO BID PRN (Reason: .) RF: 0 Primary Care Provider: Foster Reyes Referrals: Foster Reyes MD [Primary Care Provider] - 10-14 Days if not better Disposition Disposition: Home, Self Care
--- NOTE | 2021-06-12 19:15 | RAD_ITS ---
INDICATION: Cough, dyspnea -- Covid recovered EXAMINATION/TECHNIQUE: X-RAY - XR Chest 2 Views COMPARISON: 09/27/2020 FINDINGS: Patchy interstitial and airspace opacities, most severe in the left lower lobe. Tortuous and calcified thoracic aorta. The heart is not enlarged. No pleural effusion or pneumothorax. Degenerative changes of the thoracic spine. RAD/Chest PA and Lateral IMPRESSION: Patchy interstitial and airspace opacities consistent with Covid pneumonia. Electronically Signed: Amauri Franco MD at 19:49 EST ,
== END 2021-06-12 19:35 | disposition home or self-care (01) ==
PROVIDERS: Emergency Provider Emergency Medicine; PCP Family Medicine; Visit Provider Emergency Medicine
DX: J20.9 Acute bronchitis, unspecified (principal); E66.01 Morbid (severe) obesity due to excess calories; Z68.41 Body mass index [BMI] 40.0-44.9, adult; E11.9 Type 2 diabetes mellitus without complications; Z79.4 Long term (current) use of insulin; I10 Essential (primary) hypertension; G47.33 Obstructive sleep apnea (adult) (pediatric); F32.A Depression, unspecified; F41.9 Anxiety disorder, unspecified; Z79.899 Other long term (current) drug therapy; Z79.82 Long term (current) use of aspirin; E03.9 Hypothyroidism, unspecified
CPT/HCPCS: 71046; 99282

== ENCOUNTER 2021-08-01 11:04 | Outpatient (CLI) | payer MEDICARE, SELFPAY ==
[2021-08-02 11:08] LABS: Absolute Lymphocyte Count 3.81 X10^3/uL (0.83-4.51); Absolute Neutrophil Count 4.9 X10^3/uL (2.0-7.7); Hematocrit 46.6 % (40-54); Hemoglobin 14.4 g/dL (13.0-16.5); Lymphocyte # 3.81 X10^3/ul (0.83-4.51); Lymphocyte % 38.6 % (19-41); Mean Corp Hgb Conc 30.9 g/dL (32-36); Mean Corpuscular Hgb 30.2 pg (27.0-32.0); Mean Corpuscular Volume 97.7 fL (80-94); Mean Platelet Vol. 11.3 fl (6.2-12.0); Monocyte# 0.75 X10^3/uL; Monocyte% 7.6 % (0-10); NRBC Flagged by Analyzer 0 % (0-5); Neutrophil # 4.88 X10^3/uL (2.7-7.7); Neutrophil % 49.4 % (47-70); Platelet Count 304 K/mm3 (150-450); RBC Distribution Width CV 12.7 % (11.6-14.6); RBC Distribution Width SD 45.5 fl (35.1-43.9); Red Blood Count 4.77 M/mm3 (4.6-6.2); White Blood Count 9.9 K/mm3 (4.4-11.0)
[2021-08-02 11:49] LABS: ALB/GLOB Ratio 0.9 RATIO (0.9-2.4); AST(SGOT) 38 U/L (15-37); Alanine Aminotransfer ALT/SGPT 44 U/L (16-61); Albumin, Serum 3.5 g/dL (3.2-5.0); Alkaline Phosphatase 118 U/L (45-117); Anion Gap 7 (5-15); BUN 15 mg/dL (7-18); BUN/Creat Ratio 16.9 RATIO (10-20); Chloride 105 mmol/L (98-107); Cholesterol 156 mg/dL (200); Creatinine, Serum 0.88 mg/dL (0.70-1.30); EST Glomerular Filtration Rate 95 mL/min (>60); Est Glom Filt Rate - Afr Amer 115 mL/min (>60); Globulin 3.9 g/dL (2.2-4.2); Glucose 138 mg/dL (74-106); High Density Lipoprotein 50 mg/dL; Potassium 5.3 mmol/L (3.5-5.1); Protein, Total 7.4 g/dL (6.4-8.2); Sodium Level 136 mmol/L (136-145); T4 Free Direct 0.84 ng/dL (0.76-1.46); Triglycerides 191 mg/dL; Very Low Density Lipoprotein 38 mg/dL (5-40)
[2021-08-02 12:48] LABS: Hemoglobin A1c 8.7 % (3.8-5.6)
== END 2021-08-01 23:59 | disposition home or self-care (01) ==
LOC: MFPLAB 11:05
PROVIDERS: PCP Family Medicine; Referring Provider Family Medicine; Visit Provider Family Medicine
DX: E11.69 Type 2 diabetes mellitus with other specified complication (principal); E03.9 Hypothyroidism, unspecified; E78.5 Hyperlipidemia, unspecified
CPT/HCPCS: 36415; 80053; 80061; 83036; 84439; 84443; 85025

== ENCOUNTER 2021-08-02 15:20 | Outpatient (CLI) | payer MEDICARE, SELFPAY ==
--- NOTE | 2021-08-02 15:25 | RAD_ITS ---
STUDY: X-RAY - LEFT KNEE REASON FOR EXAM: Male, 56 years old. Pain. TECHNIQUE: 3 view(s) of the knee. COMPARISON: None. FINDINGS: Mild osteopenia. Normal visualized distal femur. Normal visualized proximal tibia and fibula. Normal proximal tibiofibular articulation. Mild arthrosis of the medial compartment. Normal lateral femorotibial compartment. Mild arthrosis of the patellofemoral compartment. Small joint effusion with 9 mm in diameter intra-articular osteochondral body projected posteriorly. RAD/Knee 3 Views IMPRESSION: Osteopenia with medial and patellofemoral compartmental arthrosis. Small joint effusion with 9 mm in diameter intra-articular osteochondral body. Electronically Signed: Jonah Martinez MD at 10:08 EDT ,
--- NOTE | 2021-08-02 15:25 | RAD_ITS ---
STUDY: X-RAY - RIGHT KNEE REASON FOR EXAM: Male, 56 years old. Knee pain. TECHNIQUE: 3 view(s) of the knee. COMPARISON: None. FINDINGS: Osteopenia. Intramedullary kamille within the distal femur. Moderate to marked tricompartmental arthrosis. Joint effusion with large intra-articular osteochondral body measuring approximately 3 cm in widest diameter projected posteriorly. Multiple smaller intra-articular osteochondral bodies. RAD/Knee 3 Views IMPRESSION: Osteopenia with intramedullary kamille within the distal femur. Severe tricompartmental arthrosis. Joint effusion with multiple intra-articular osteochondral bodies as described. Electronically Signed: Jonah Martinez MD at 10:06 EDT ,
== END 2021-08-02 23:59 | disposition home or self-care (01) ==
LOC: MTRAD 15:22
PROVIDERS: PCP Family Medicine; Referring Provider Family Medicine; Visit Provider Family Medicine
DX: M25.562 Pain in left knee (principal); M25.561 Pain in right knee
CPT/HCPCS: 73562

== ENCOUNTER → 2021-10-30 | Outpatient (CLI) | payer MEDICARE, SELFPAY ==
[2021-10-30 18:01] LABS: Absolute Lymphocyte Count 2.64 X10^3/uL (0.83-4.51); Absolute Neutrophil Count 5.3 X10^3/uL (2.0-7.7); Basophil# 0.05 X10^3/uL; Basophil% 0.6 % (0-1); Eosinophil# 0.26 X10^3/uL; Eosinophils% 2.9 % (0-5); Hematocrit 45.7 % (40-54); Hemoglobin 14.5 g/dL (13.0-16.5); Lymphocyte # 2.64 X10^3/ul (0.83-4.51); Lymphocyte % 29.2 % (19-41); Mean Corp Hgb Conc 31.7 g/dL (32-36); Mean Corpuscular Hgb 29.7 pg (27.0-32.0); Mean Corpuscular Volume 93.6 fL (80-94); Mean Platelet Vol. 11.2 fl (6.2-12.0); Monocyte# 0.74 X10^3/uL; Monocyte% 8.2 % (0-10); NRBC Flagged by Analyzer 0 % (0-5); Neutrophil # 5.31 X10^3/uL (2.7-7.7); Neutrophil % 58.8 % (47-70); Platelet Count 299 K/mm3 (150-450); RBC Distribution Width CV 12.1 % (11.6-14.6); RBC Distribution Width SD 42.1 fl (35.1-43.9); Red Blood Count 4.88 M/mm3 (4.6-6.2)
[2021-10-30 18:27] LABS: Hemoglobin A1c 6.1 % (3.8-5.6)
[2021-10-30 18:29] LABS: Microalbumin,Random Urine 6.6 mg/L (NO RANGE EST.); Microalbumin:Creatinine Ratio 5.8 mg/g CRE (<30 mg/g CRE)
[2021-10-30 18:32] LABS: ALB/GLOB Ratio 0.8 RATIO (0.9-2.4); AST(SGOT) 27 U/L (15-37); Alanine Aminotransfer ALT/SGPT 32 U/L (16-61); Albumin, Serum 3.4 g/dL (3.2-5.0); Alkaline Phosphatase 101 U/L (45-117); Anion Gap 8 (5-15); BUN 13 mg/dL (7-18); Calcium,Total 9.5 mg/dL (8.5-10.1); Chloride 105 mmol/L (98-107); Cholesterol 141 mg/dL (200); Creatinine, Serum 0.81 mg/dL (0.70-1.30); EST Glomerular Filtration Rate 105 mL/min (>60); Est Glom Filt Rate - Afr Amer 128 mL/min (>60); Glucose 129 mg/dL (74-106); High Density Lipoprotein 44 mg/dL; Potassium 4.7 mmol/L (3.5-5.1); Protein, Total 7.4 g/dL (6.4-8.2); Sodium Level 139 mmol/L (136-145); T4 Free Direct 1.71 ng/dL (0.76-1.46); Thyroid Stim Hormone (TSH) 0.02 uIU/mL (0.358-3.74); Triglycerides 200 mg/dL; Very Low Density Lipoprotein 40 mg/dL (5-40)
== END | disposition home or self-care (01) ==
LOC: MFPLAB 15:34
PROVIDERS: PCP Family Medicine; Visit Provider Family Medicine
DX: E11.69 Type 2 diabetes mellitus with other specified complication (principal); E87.5 Hyperkalemia; E03.9 Hypothyroidism, unspecified
CPT/HCPCS: 36415; 80053; 80061; 82043; 82570; 83036; 84439; 84443; 85025

== ENCOUNTER → 2021-12-14 | Outpatient (CLI) | payer MEDICARE, SELFPAY | END | disposition home or self-care (01) | LOC: LABSPEC 10:57 | PROVIDERS: PCP Family Medicine; Referring Provider Surgery; Visit Provider Surgery | DX: L02.416 Cutaneous abscess of left lower limb (principal) | CPT/HCPCS: 87070; 87075; 87077; 87186; 87205 ==

== ENCOUNTER 2022-02-17 14:43 | Emergency (ER) | payer MEDICARE, SELFPAY ==
[2022-02-17 14:45] VITALS: BP 184/91; PULSE 81; RESP 16; TEMP 36.7; O2SAT 97; BMI 60.0
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
== END 2022-02-17 17:07 | disposition home or self-care (01) ==
PROVIDERS: Emergency Provider Emergency Medicine; PCP Family Medicine; Visit Provider Emergency Medicine
DX: S00.83XA Contusion of other part of head, initial encounter (principal); E11.9 Type 2 diabetes mellitus without complications; I10 Essential (primary) hypertension; V43.52XA Car driver injured in collision with other type car in traffic accident, initial encounter
CPT/HCPCS: 70450; 70486; 72125; 99284

== ENCOUNTER 2022-04-16 07:47 | Emergency (ER) | payer MEDICARE, SELFPAY ==
[2022-04-16 07:48] VITALS: PULSE 96; RESP 20; TEMP 36.4; O2SAT 97; BMI 59.3
--- NOTE | 2022-04-16 07:51 | ED.VIS.GI ---
HPI HPI - GI History of Present Illness Chief Complaint: Abd Pain Informant: patient and EMS Abdominal Pain/Flank Pain Onset: Yesterday (Last night at 11 PM, approximately 9 hours prior to arrival) Context: Gradual Onset (After drinking a lot of vodka yesterday) Timing: Continuous Quality: - (Discomfort and nausea) Location: Diffuse (Upper-middle abdomen. Nonlateralizing.) Current Severity: Moderate Maximum Severity: Moderate Worsened by: Nothing Relieved by: Nothing Nausea/Vomiting/Emesis GI Symptom: Positive for Nausea; Negative for Vomiting Diarrhea/Melena/Hematochezia GI Symptom: Negative for Diarrhea, Melena or Hematochezia Associated Symptoms Associated Symptoms: Negative for Dysuria, Frequency, Hematuria or Urgency Narrative Narrative: Patient presents after drinking vodka all day yesterday, saying abdominal discomfort and nausea started last night and has persisted all morning so he presents by EMS. According to EMS, his blood pressure was very high, 200s/100s. Now the patient is more concerned about that than anything else. He has not vomited. He has had no bright red blood per rectum or melena. He states someone told me I probably have a hangover. Throughout the initial evaluation, he states that was stupid referring to the fact that he drank vodka yesterday which he rarely does. He does not drink alcohol daily or very often. He denies using any other substances. He denies any other symptoms. [facility] Medical History Anxiety Depression Diabetes Essential hypertension Hypertension Hypothyroidism RANCHO on CPAP Home Medications levothyroxine 200 mcg tablet 200 mcg PO DAILY 07/25/20 [History Last Taken Unknown] metformin 500 mg tablet 1,000 mg PO BID 07/25/20 [History Last Taken Unknown] paroxetine HCl 40 mg tablet 40 mg PO DAILY 07/25/20 [History Last Taken Unknown] rosuvastatin 40 mg tablet 40 mg PO QHS 07/25/20 [History Last Taken Unknown] aspirin 81 mg tablet,delayed release 81 mg PO DAILY 09/27/20 [History Last Taken Unknown] multivitamin 1 cap DAILY 09/27/20 [History Last Taken Unknown] lisinopril 20 mg tablet 20 mg PO DAILY 11/22/20 [History Last Taken Unknown] insulin glargine U-300 conc 300 unit/mL (1.5 mL) subcutaneous pen 46 unit subcut DAILY 11/24/20 [History Last Taken Unknown] levothyroxine 50 mcg tablet 50 mcg PO DAILY 11/24/20 [History Last Taken Unknown] melatonin 10 mg tablet 5 mg PO QHS 11/24/20 [History Last Taken Unknown] semaglutide 0.25 mg or 0.5 mg (2 mg/1.5 mL) subcutaneous pen injector (Ozempic) 1 mg subcut QWEEK 11/24/20 [History Last Taken Unknown] metoprolol succinate 50 mg tablet,extended release 24 hr 50 mg PO DAILY #90 tabs 02/12/22 [Rx Last Taken Unknown] promethazine 25 mg tablet 25 mg PO Q6H PRN PRN Nausea #10 TABLETS 04/16/22 [Rx Last Taken Unknown] Allergy/AdvReac Type Severity Reaction Status Date / Time escitalopram [From Lexapro] AdvReac Rash Verified 04/16/22 07:50 Family History Father Hypertension Mother Myocardial infarction Diabetes Hypertension Sister Diabetes Surgical History History of hip surgery Social History household members: none Smoking Status: Never smoker alcohol intake: never substance use type: does not use caffeine: Yes Type: carbonated beverages Number of servings: 1 and tea Number of servings: 3 ROS ROS ED Constitutional Constitutional ED: Reports malaise; Denies chills or fever(s) Eyes Eyes: Denies change in vision or diplopia ENT ENT ED: Denies rhinorrhea or sore throat Cardiovascular Cardiovascular: Denies chest pain or palpitations Respiratory/Chest Respiratory/Chest: Denies cough or dyspnea Gastrointestinal Gastrointestinal: Reports abdominal pain, constipation and nausea; Denies diarrhea, melena or vomiting Genitourinary Genitourinary ED: Denies dysuria or hematuria Musculoskeletal Musculoskeletal: Denies back pain or neck pain Integumentary Denies abscess or rash Neurologic Neurologic: Denies headache(s), paresthesias or weakness Psychiatric Psychiatric: Reports depression; Denies anxiety or suicidal thoughts EXAM Physical Exam Const Vital Signs: 04/16/22 07:48 Temperature 97.6 F L Temperature Source Temporal Pulse Rate 96 Respiratory Rate 20 H Pulse Ox 97 Oxygen Delivery Method Room Air Positive well nourished, well developed and obese General Appearance ED: well developed and NAD Nutritional Appearance: obese HEENT Reports moist mucous membranes normocephalic and atraumatic Eyes PERRL and EOMs intact bilaterally Neck full ROM and supple Resp normal respiratory effort and clear to auscultation bilaterally Effort and Inspection: able to speak in complete sentences Cardio regular rate, regular rhythm and no murmurs GI non-tender and non-distended GI Narrative: Exam limited by obesity, but benign abdomen Auscultation: normoactive bowel sounds Palpation: soft Back/Spine no CVA tenderness General Back: other FROM Extremity normal to inspection General Extremety ED: Negative for edema, pulses abnormal or tenderness General Extremity: Negative for edema or pulses abnormal Neuro oriented x3, CN's II-XII intact bilaterally and no sensory deficits noted Sensorium / Orientation: awake and alert Motor Exam: strength 5/5 throughout Psych mental status grossly normal and thought process normal Psych Narrative: Denies any suicidal thoughts or suicidal ideation. Is appropriate with myself and staff. Skin no rashes or lesions noted and no wounds MDM MDM MDM Narrative Medical decision making narrative: Patient was treated with IV fluids, Zofran, and a GI cocktail. He felt somewhat better afterwards, still malaised and some nausea. Additionally given phenergan orally, and passed po fluid challenge. His initial blood pressure here was 171 systolic, and we monitored that. Labs were obtained in order to rule out pancreatitis and other metabolic disturbances, they were unremarkable. Patient discharged in stable improved condition with appropriate discharge instructions, I think a prescription for Phenergan short-term would be reasonable. He was given Pepcid here and advised to continue it if he has symptoms that recur or persist prior to following up. Lab Data Attestation: I reviewed the patient's lab results. Labs: Laboratory Results - last 24 hr 04/16/22 04/16/22 08:05 08:05 WBC 8.5 RBC 4.94 Hgb 15.4 Hct 44.4 MCV 89.9 MCH 31.2 MCHC 34.7 RDW Std Deviation 39.9 RDW Coeff of Juan 12.1 Plt Count 277 MPV 10.3 Immature Gran % (Auto) 0.400 Neut % (Auto) 73.1 H Lymph % (Auto) 18.1 L [place] % (Auto) 7.1 Eos % (Auto) 0.6 Baso % (Auto) 0.7 Absolute Neuts (auto) 6.2 Absolute Lymphs (auto) 1.53 Nucleated RBC % 0 Sodium 133 L Potassium 4.6 Chloride 100 Carbon Dioxide 24.0 Anion Gap 9 BUN 14 Creatinine 1.08 Estim Creat Clear Calc 78.19 Est GFR (MDRD) Af Amer 91 Est GFR (MDRD) Non-Af 76 BUN/Creatinine Ratio 13.0 Glucose 190 H Calcium 10.1 Total Bilirubin 0.50 AST 29 ALT 35 Alkaline Phosphatase 120 H Total Protein 8.2 Albumin 3.7 Globulin 4.5 H Albumin/Globulin Ratio 0.8 L Lipase 102 Discharge Plan Triage Chief Complaint: Abd Pain ED Provider: Frank Peterson Dx/Rx/DC Orders Clinical Impression: Alcoholic gastritis without bleeding, Episode of hypertension Instructions: ED Gastritis (Adult) Prescriptions: New promethazine [promethazine] 25 MG tablet 25 mg PO Q6H PRN PRN (Reason: Nausea) Qty: 10 0RF No Action lisinopril 20 mg tablet 20 mg PO DAILY Ozempic 0.25 mg or 0.5 mg(2 mg/1.5 mL) pen injector 1 mg subcut QWEEK Rx Instructions: for 4 doses metformin 500 MG tablet 1,000 mg PO BID levothyroxine 200 MCG tablet 200 mcg PO DAILY paroxetine HCl 40 MG tablet 40 mg PO DAILY rosuvastatin 40 MG tablet 40 mg PO QHS levothyroxine 50 mcg tablet 50 mcg PO DAILY Label Comments: take 1 tablet by mouth once daily insulin glargine U-300 conc 300 unit/mL (1.5 mL) insulin pen 46 unit subcut DAILY Label Comments: inject 25 units subcutaneously once daily as directed aspirin [Aspir-81] 81 mg Tablet,Delayed Release (Dr/Ec) 81 mg PO DAILY multivitamin Capsule 1 cap DAILY melatonin 10 mg tablet 5 mg PO QHS metoprolol succinate 50 mg tablet extended release 24 hr 50 mg PO DAILY Qty: 90 3RF Primary Care Provider: Foster Reyes Referrals: Foster Reyes MD [Primary Care Provider] - 3-5 Days if not improving Activity Restrictions/Additional Instructions: Avoid alcohol, 48 hours worth of a bland diet is recommended. If you still have abdominal discomfort after today, take Pepcid 40 mg once daily for the next week or 2, nausea medicine as prescribed as needed, and follow-up with your doctor. Disposition Disposition: Home, Self Care
[2022-04-16] MEDS: Ondansetron 4 MG/2 ML Vial IV (08:13)
[2022-04-16] MEDS: Mag Hydrox/Al Hydrox/Simeth 30 ML UDC PO (08:14)
[2022-04-16] MEDS: 0.9% Normal Saline 1,000 ML 1000 ML IV (08:14)
[2022-04-16 08:16] LABS: Absolute Lymphocyte Count 1.53 X10^3/uL (0.83-4.51); Absolute Neutrophil Count 6.2 X10^3/uL (2.0-7.7); Basophil# 0.06 X10^3/uL; Basophil% 0.7 % (0-1); Eosinophil# 0.05 X10^3/uL; Eosinophils% 0.6 % (0-5); Hematocrit 44.4 % (40-54); Hemoglobin 15.4 g/dL (13.0-16.5); Lymphocyte # 1.53 X10^3/ul (0.83-4.51); Lymphocyte % 18.1 % (19-41); Mean Corp Hgb Conc 34.7 g/dL (32-36); Mean Corpuscular Hgb 31.2 pg (27.0-32.0); Mean Corpuscular Volume 89.9 fL (80-94); Mean Platelet Vol. 10.3 fl (6.2-12.0); Monocyte% 7.1 % (0-10); NRBC Flagged by Analyzer 0 % (0-5); Neutrophil # 6.19 X10^3/uL (2.7-7.7); Neutrophil % 73.1 % (47-70); Platelet Count 277 K/mm3 (150-450); RBC Distribution Width CV 12.1 % (11.6-14.6); RBC Distribution Width SD 39.9 fl (35.1-43.9); Red Blood Count 4.94 M/mm3 (4.6-6.2); White Blood Count 8.5 K/mm3 (4.4-11.0)
[2022-04-16 08:35] LABS: ALB/GLOB Ratio 0.8 RATIO (0.9-2.4); AST(SGOT) 29 U/L (15-37); Alanine Aminotransfer ALT/SGPT 35 U/L (16-61); Albumin, Serum 3.7 g/dL (3.2-5.0); Alkaline Phosphatase 120 U/L (45-117); Anion Gap 9 (5-15); BUN 14 mg/dL (7-18); Calcium,Total 10.1 mg/dL (8.5-10.1); Chloride 100 mmol/L (98-107); Creatinine, Serum 1.08 mg/dL (0.70-1.30); EST Glomerular Filtration Rate 76 mL/min (>60); Est Glom Filt Rate - Afr Amer 91 mL/min (>60); Estimated Creatinine Clearance 78.19 ml/min; Globulin 4.5 g/dL (2.2-4.2); Glucose 190 mg/dL (74-106); Lipase 102 U/L (73-393); Potassium 4.6 mmol/L (3.5-5.1); Protein, Total 8.2 g/dL (6.4-8.2); Sodium Level 133 mmol/L (136-145)
[2022-04-16] MEDS: Famotidine 20 MG Tablet 40 MG PO (09:26)
[2022-04-16] MEDS: proMETHazine 25 MG Tablet PO (09:26)
[2022-04-16 10:44] VITALS: BP 180/82; PULSE 79; RESP 18; O2SAT 96
[2022-04-16 10:54] VITALS: BP 178/80; PULSE 79; RESP 18; O2SAT 96
== END 2022-04-16 11:13 | disposition home or self-care (01) ==
LOC: ED 08:27
PROVIDERS: Emergency Provider Emergency Medicine; PCP Family Medicine; Visit Provider Emergency Medicine
DX: K29.20 Alcoholic gastritis without bleeding (principal); E11.9 Type 2 diabetes mellitus without complications; Z79.4 Long term (current) use of insulin; I10 Essential (primary) hypertension; E66.9 Obesity, unspecified; G47.33 Obstructive sleep apnea (adult) (pediatric); F41.9 Anxiety disorder, unspecified; F32.A Depression, unspecified; E03.9 Hypothyroidism, unspecified; Z79.82 Long term (current) use of aspirin; Z79.84 Long term (current) use of oral hypoglycemic drugs; Z79.899 Other long term (current) drug therapy
CPT/HCPCS: 80053; 83690; 85025; 96361; 96374; 99285; J7030; A4216; J2405

== ENCOUNTER → 2022-05-22 | Outpatient (CLI) | payer MEDICARE, SELFPAY ==
[2022-05-22 15:21] LABS: Bacteria 0 SEEN /hpf (None Seen); Mucous, Urine 0 SEEN /hpf (<or=2+); Red Blood Cells-Urine 0 SEEN /hpf (0-5); White Blood Cells 0 SEEN /hpf (0-5)
[2022-05-22 18:16] LABS: Absolute Lymphocyte Count 2.74 X10^3/uL (0.83-4.51); Absolute Neutrophil Count 5.4 X10^3/uL (2.0-7.7); Basophil# 0.06 X10^3/uL; Basophil% 0.7 % (0-1); Eosinophil# 0.28 X10^3/uL; Eosinophils% 3.1 % (0-5); Hematocrit 45.7 % (40-54); Lymphocyte # 2.74 X10^3/ul (0.83-4.51); Lymphocyte % 29.9 % (19-41); Mean Corp Hgb Conc 32.8 g/dL (32-36); Mean Corpuscular Hgb 31.2 pg (27.0-32.0); Mean Platelet Vol. 11.1 fl (6.2-12.0); Monocyte# 0.69 X10^3/uL; Monocyte% 7.5 % (0-10); NRBC Flagged by Analyzer 0 % (0-5); Neutrophil # 5.35 X10^3/uL (2.7-7.7); Neutrophil % 58.3 % (47-70); Platelet Count 289 K/mm3 (150-450); RBC Distribution Width CV 12.4 % (11.6-14.6); RBC Distribution Width SD 43.5 fl (35.1-43.9); Red Blood Count 4.81 M/mm3 (4.6-6.2); White Blood Count 9.2 K/mm3 (4.4-11.0)
[2022-05-22 18:33] LABS: Color, Urine Yellow (Yellow); Glucose, Dipstick Normal (Normal); Ketone-Dipstick Negative (Negative); Leukocyte Esterase-Dipstick Negative /ul (Negative); Nitrite-Dipstick Negative (Negative); Occult Blood-Urine Negative /ul (Negative); Protein-Dipstick Negative (Negative); Urine Bilirubin Dipstick Negative (Negative); Urine Clarity Clear (Clear); Urine Urobilinogen Normal (Normal)
[2022-05-22 18:42] LABS: Microalbumin,Random Urine 6.5 mg/L (NO RANGE EST.); Microalbumin:Creatinine Ratio 7.6 mg/g CRE (<30 mg/g CRE)
[2022-05-22 18:43] LABS: ALB/GLOB Ratio 0.9 RATIO (0.9-2.4); AST(SGOT) 31 U/L (15-37); Alanine Aminotransfer ALT/SGPT 37 U/L (16-61); Albumin, Serum 3.7 g/dL (3.2-5.0); Alkaline Phosphatase 122 U/L (45-117); Anion Gap 7 (5-15); BUN 20 mg/dL (7-18); BUN/Creat Ratio 19.8 RATIO (10-20); Calcium,Total 9.4 mg/dL (8.5-10.1); Chloride 102 mmol/L (98-107); Cholesterol 206 mg/dL (200); Creatinine, Serum 1.01 mg/dL (0.70-1.30); EST Glomerular Filtration Rate 82 mL/min (>60); Est Glom Filt Rate - Afr Amer 99 mL/min (>60); Glucose 189 mg/dL (74-106); High Density Lipoprotein 53 mg/dL; Magnesium 2.3 mg/dL (1.6-2.6); Potassium 5.1 mmol/L (3.5-5.1); Protein, Total 7.7 g/dL (6.4-8.2); Sodium Level 136 mmol/L (136-145); Triglycerides 283 mg/dL; Very Low Density Lipoprotein 57 mg/dL (5-40)
[2022-05-22 19:00] LABS: Squamous Epithelial Cells - UA 0-5 SEEN /hpf (0-5)
[2022-05-22 19:30] LABS: Hemoglobin A1c 7.6 % (3.8-5.6)
== END | disposition home or self-care (01) ==
LOC: MFPLAB 15:16
PROVIDERS: PCP Family Medicine; Referring Provider Family Medicine; Visit Provider Family Medicine
DX: Z00.00 Encounter for general adult medical examination without abnormal findings (principal); E66.01 Morbid (severe) obesity due to excess calories; E11.9 Type 2 diabetes mellitus without complications; E03.9 Hypothyroidism, unspecified
CPT/HCPCS: 36415; 80053; 80061; 81001; 82043; 82570; 83036; 83735; 84443; 85025

== ENCOUNTER → 2022-11-22 | Outpatient (CLI) | payer MEDICARE, SELFPAY ==
[2022-11-22 15:17] LABS: Absolute Lymphocyte Count 2.35 X10^3/uL (0.83-4.51); Absolute Neutrophil Count 4.4 X10^3/uL (2.0-7.7); Basophil# 0.06 X10^3/uL; Basophil% 0.8 % (0-1); Eosinophil# 0.21 X10^3/uL; Eosinophils% 2.7 % (0-5); Hematocrit 44.4 % (40-54); Hemoglobin 15.2 g/dL (13.0-16.5); Lymphocyte # 2.35 X10^3/ul (0.83-4.51); Mean Corp Hgb Conc 34.2 g/dL (32-36); Mean Corpuscular Hgb 31.2 pg (27.0-32.0); Mean Corpuscular Volume 91.2 fL (80-94); Mean Platelet Vol. 11.2 fl (6.2-12.0); Monocyte# 0.76 X10^3/uL; Monocyte% 9.7 % (0-10); NRBC Flagged by Analyzer 0 % (0-5); Neutrophil # 4.42 X10^3/uL (2.7-7.7); Neutrophil % 56.4 % (47-70); Platelet Count 258 K/mm3 (150-450); RBC Distribution Width CV 12.2 % (11.6-14.6); RBC Distribution Width SD 40.5 fl (35.1-43.9); Red Blood Count 4.87 M/mm3 (4.6-6.2); White Blood Count 7.8 K/mm3 (4.4-11.0)
[2022-11-22 16:30] LABS: Hemoglobin A1c 7.8 % (3.8-5.6)
[2022-11-22 17:19] LABS: ALB/GLOB Ratio 0.9 RATIO (0.9-2.4); AST(SGOT) 33 U/L (15-37); Alanine Aminotransfer ALT/SGPT 51 U/L (16-61); Albumin, Serum 3.5 g/dL (3.2-5.0); Alkaline Phosphatase 117 U/L (45-117); Anion Gap 6 (5-15); BUN 14 mg/dL (7-18); BUN/Creat Ratio 13.1 RATIO (10-20); Calcium,Total 9.7 mg/dL (8.5-10.1); Chloride 103 mmol/L (98-107); Cholesterol 164 mg/dL (200); Creatinine, Serum 1.07 mg/dL (0.70-1.30); EST Glomerular Filtration Rate 76 mL/min (>60); Est Glom Filt Rate - Afr Amer 92 mL/min (>60); Glucose 175 mg/dL (74-106); High Density Lipoprotein 50 mg/dL; Magnesium 2.2 mg/dL (1.6-2.6); PSA,Total - Annual Screen 0.18 ng/mL (0.00-4.00); Potassium 4.2 mmol/L (3.5-5.1); Protein, Total 7.5 g/dL (6.4-8.2); Sodium Level 135 mmol/L (136-145); T4 Free Direct 1.02 ng/dL (0.76-1.46); Triglycerides 243 mg/dL; Very Low Density Lipoprotein 49 mg/dL (5-40)
== END | disposition home or self-care (01) ==
LOC: MFPLAB 14:13
PROVIDERS: PCP Family Medicine; Visit Provider Family Medicine
DX: Z12.5 Encounter for screening for malignant neoplasm of prostate (principal); I47.1 Supraventricular tachycardia; E11.9 Type 2 diabetes mellitus without complications; E03.9 Hypothyroidism, unspecified
CPT/HCPCS: 36415; 80053; 80061; 83036; 83735; 84153; 84439; 84443; 85025; G0103

== ENCOUNTER 2023-02-05 07:58 | Emergency (ER) | payer MEDICARE, SELFPAY ==
[2023-02-05 07:58] VITALS: BP 249/119; PULSE 98; RESP 26; TEMP 36.4; O2SAT 98
--- NOTE | 2023-02-05 08:10 | RAD_ITS ---
INDICATION: Shortness of breath EXAMINATION/TECHNIQUE: X-RAY - XR Chest 1 View COMPARISON: Prior study dated: 06/12/2021. FINDINGS: LINES/DEVICES: None. LUNGS: No consolidation, edema or effusion. No pneumothorax. MEDIASTINUM AND CARDIOVASCULAR STRUCTURES: Cardiac silhouette not enlarged. Central airways and mediastinal contour are unremarkable. BONES AND SOFT TISSUES: Unremarkable. RAD/Chest 1 View (Portable) IMPRESSION: No radiographic evidence of acute cardiopulmonary disease. Electronically Signed: Lukasz Ward MD at 8:44 EDT ,
--- NOTE | 2023-02-05 08:10 | EKG12_ITS ---
Test Reason : SOB Blood Pressure : / mmHG Vent. Rate : 068 BPM Atrial Rate : 068 BPM P-R Int : 180 ms QRS Dur : 094 ms QT Int : 404 ms P-R-T Axes : -29 -32 035 degrees QTc Int : 429 ms Normal sinus rhythm Left axis deviation Abnormal ECG When compared with ECG of 27-SEP-2020 21:00, Vent. rate has decreased BY 39 BPM Confirmed by OJ SHELLEY MD ([id number]), photography editor OMAR RUIZ ([id number]) on 02/07/2023 1:58:22 PM Referred By: VIRGIL Confirmed By:OJ SHELLEY MD
[2023-02-05 08:12] VITALS: BMI 60.5
--- NOTE | 2023-02-05 08:12 | ED.VIS.DYS ---
HPI History of Present Illness Chief Complaint: Shortness of Breath Informant: patient Narrative Narrative: Presenting sinus congestion nonproductive cough increasing dyspnea on arrival. He states cough kept him up all night. She is sleep apnea CPAP at night with oxygen no oxygen during the day. Denies fevers. No blood pressure elevated on arrival he denies headache chest pain abdominal pain. He states his blood pressure taken last night was systolic 150. He is on lisinopril for blood pressure. Diabetic on insulin and oral medications. Hypothyroidism. Denies any orthopnea. Denies leg swelling. [facility] Medical History Anxiety Depression Diabetes Essential hypertension Hypertension Hypothyroidism RANCHO on CPAP Home Medications levothyroxine 200 mcg tablet 200 mcg PO DAILY 07/25/20 [History Last Taken Unknown] metformin 500 mg tablet 1,000 mg PO BID 07/25/20 [History Last Taken Unknown] paroxetine HCl 40 mg tablet 40 mg PO DAILY 07/25/20 [History Last Taken Unknown] rosuvastatin 40 mg tablet 40 mg PO QHS 07/25/20 [History Last Taken Unknown] aspirin 81 mg tablet,delayed release 81 mg PO DAILY 09/27/20 [History Last Taken Unknown] multivitamin 1 cap DAILY 09/27/20 [History Last Taken Unknown] lisinopril 20 mg tablet 20 mg PO DAILY 11/22/20 [History Last Taken Unknown] insulin glargine U-300 conc 300 unit/mL (1.5 mL) subcutaneous pen 46 unit subcut DAILY 11/24/20 [History Last Taken Unknown] levothyroxine 50 mcg tablet 50 mcg PO DAILY 11/24/20 [History Last Taken Unknown] melatonin 10 mg tablet 5 mg PO QHS 11/24/20 [History Last Taken Unknown] semaglutide 0.25 mg or 0.5 mg (2 mg/1.5 mL) subcutaneous pen injector (Ozempic) 1 mg subcut QWEEK 11/24/20 [History Last Taken Unknown] metoprolol succinate 50 mg tablet,extended release 24 hr 50 mg PO DAILY #90 tabs 02/12/22 [Rx Last Taken Unknown] promethazine 25 mg tablet 25 mg PO Q6H PRN PRN Nausea #10 TABLETS 04/16/22 [Rx Last Taken Unknown] celecoxib 200 mg capsule (Celebrex) 200 mg PO BID #30 caps 01/03/23 [Rx Last Taken Unknown] nirmatrelvir 300 mg (150 mg x2)-ritonavir 100 mg tablet,dose pack (Paxlovid) See Rx Instructions PO .COMPLEX #30 tabs 02/05/23 [Rx Last Taken Unknown] Allergy/AdvReac Type Severity Reaction Status Date / Time escitalopram [From Lexapro] AdvReac Rash Verified 07/09/22 14:03 Family History Father Hypertension Mother Myocardial infarction Diabetes Hypertension Sister Diabetes Surgical History History of hip surgery Social History household members: none Smoking Status: Never smoker alcohol intake: never substance use type: does not use caffeine: Yes Type: carbonated beverages Number of servings: 1 and tea Number of servings: 3 ROS ROS ED Constitutional Constitutional ED: Denies chills, fever(s) or sweats Eyes Eyes: Denies change in vision ENT ENT ED: Denies dysphagia or sore throat Cardiovascular Cardiovascular: Denies chest pain, leg edema, palpitations or racing heartbeat Respiratory/Chest Respiratory/Chest: Reports cough and dyspnea; Denies dyspnea on exertion Gastrointestinal Gastrointestinal: Denies abdominal pain, diarrhea, nausea or vomiting Genitourinary Genitourinary ED: Denies dysuria, hematuria or urinary frequency Musculoskeletal Musculoskeletal: Denies back pain, extremity pain or neck pain Integumentary Denies rash or wounds Neurologic Neurologic: Denies headache(s), paresthesias or weakness EXAM Physical Exam Const Vital Signs: 02/05/23 07:58 02/05/23 08:17 02/05/23 08:18 Temperature 97.6 F L Temperature Source Temporal Pulse Rate 98 Respiratory Rate 26 H Respiratory Effort Short of Breath Labored Respiratory Depth Normal Respiratory Pattern Normal Blood Pressure 249/119 H 180/105 H Blood Pressure Mean 162 130 Pulse Ox 98 Oxygen Delivery Method Room Air Room Air 02/05/23 09:50 Temperature Temperature Source Pulse Rate 82 Respiratory Rate 17 Respiratory Effort Respiratory Depth Respiratory Pattern Blood Pressure 158/95 H Blood Pressure Mean 116 Pulse Ox 95 Oxygen Delivery Method Room Air Positive well nourished and well developed Constitutional Narrative: BMI of 60 General Appearance ED: well developed and NAD HEENT Reports moist mucous membranes normocephalic and atraumatic Eyes PERRL, EOMs intact bilaterally and conjunctivae normal General Eye ED: Yes normal appearance of both eyes Neck no lymphadenopathy and supple General: Negative for tenderness Chest Wall Chest: Negative for tenderness Resp normal air movement Resp Narrative: Mild tachypnea, no wheezes or rales Effort and Inspection: symmetric chest movement; Negative for respiratory distress Cardio regular rate, regular rhythm and no murmurs Peripheral Pulses: pulses 2+ throughout GI non-tender GI Narrative: Normal wound, distended abdomen nontender. Palpation: Negative for guarding or rebound tenderness present Back/Spine no CVA tenderness and no thoracic nor lumbar tenderness Extremity normal to inspection General Extremety ED: Negative for edema or tenderness General Extremity: Negative for edema Neuro oriented x3 and no sensory deficits noted Sensorium / Orientation: awake and alert Skin no rashes or lesions noted and no wounds MDM MDM MDM Narrative Medical decision making narrative: Interventions / MDM: Differential diagnosis: Viral syndrome, hypertension Diagnosis considered but do not suspect: Hypertensive emergency however negative work-up. Pneumonia however chest x-ray negative My EKG interpretation: Sinus rate of 68, no ST or T wave changes. Imaging independently reviewed and interpreted by myself: 1 view chest x-ray: No acute process. External documents reviewed: N/A Test considered but not ordered:N/A ED course: Patient presenting sinus congestion nonproductive cough since yesterday. He is not hypoxic. Blood pressure on arrival 249/119, no headaches chest pains back pain abdominal pain. He was monitored. Due to symptoms work-up initiated. EKG chest x-ray and labs. EKG sinus him. Chest ray negative. Labs are able, COVID testing returned positive, reports he is vaccinated. He has had COVID in the past is been no hospitalizations. He has comorbidities on day 2 symptoms. Discussed treatment with Paxlovid for which she agreed. This was sent to his pharmacy he is on a statin for which she will hold. Without treatment blood pressure improved under 158/95. He will monitor his blood pressure and follow-up with his PCP with return precautions. Re-evaluation: stable Disposition discussed with patient/family/significant other: Patient Case discussed with consulting clinician: N/A This note was generated with Informantonlineation software. It may contain incorrect words, spelling, and punctuation that were not noted in checking the note before signing. Lab Data Attestation: I reviewed the patient's lab results. Labs: Laboratory Results - last 24 hr 02/05/23 08:12 WBC 10.9 RBC 4.77 Hgb 14.3 Hct 45.2 MCV 94.8 H MCH 30.0 MCHC 31.6 L RDW Std Deviation 43.0 RDW Coeff of Juan 12.5 Plt Count 241 MPV 10.9 Immature Gran % (Auto) 0.600 Neut % (Auto) 73.8 H Lymph % (Auto) 13.4 L [place] % (Auto) 7.4 Eos % (Auto) 4.2 Baso % (Auto) 0.6 Absolute Neuts (auto) 8.0 H Absolute Lymphs (auto) 1.46 Nucleated RBC % 0 Sodium 140 Potassium 4.2 Chloride 110 H Carbon Dioxide 25.0 Anion Gap 5 BUN 12 Creatinine 0.90 Estim Creat Clear Calc 92.74 Est GFR (MDRD) Af Amer 112 Est GFR (MDRD) Non-Af 93 BUN/Creatinine Ratio 13.3 Glucose 131 H Calcium 8.9 B-Natriuretic Peptide 92.2 Radiography Diagnostic Testing: Clinical Impression(s) from Imaging Studies Chest X-Ray 02/05/23 08:10 IMPRESSION: No radiographic evidence of acute cardiopulmonary disease. Electronically Signed: Lukasz Ward MD at 8:44 EDT , Discharge Plan Triage Chief Complaint: Shortness of Breath ED Provider: Saleem Bridges Dx/Rx/DC Orders Clinical Impression: COVID-19, RANCHO on CPAP, Essential hypertension Instructions: Coronavirus Disease 2019 (COVID-19): Caring for Yourself or Others Prescriptions: New Paxlovid 300 mg (150 mg x 2)-100 mg tablets,dose pack See Rx Instructions .ROUTE .COMPLEX Qty: 30 0RF Rx Instructions: take TWO 150 mg tablets of nirmatrelvir with ONE 100 mg tablet of ritonavir twice daily for 5 days No Action lisinopril 20 mg tablet 20 mg PO DAILY Ozempic 0.25 mg or 0.5 mg(2 mg/1.5 mL) pen injector 1 mg subcut QWEEK Rx Instructions: for 4 doses metformin 500 MG tablet 1,000 mg PO BID levothyroxine 200 MCG tablet 200 mcg PO DAILY paroxetine HCl 40 MG tablet 40 mg PO DAILY rosuvastatin 40 MG tablet 40 mg PO QHS levothyroxine 50 mcg tablet 50 mcg PO DAILY Patient Comments: take 1 tablet by mouth once daily insulin glargine U-300 conc 300 unit/mL (1.5 mL) insulin pen 46 unit subcut DAILY Patient Comments: inject 25 units subcutaneously once daily as directed aspirin [Aspir-81] 81 mg Tablet,Delayed Release (Dr/Ec) 81 mg PO DAILY multivitamin Capsule 1 cap DAILY melatonin 10 mg tablet 5 mg PO QHS promethazine [promethazine] 25 MG tablet 25 mg PO Q6H PRN PRN (Reason: Nausea) Qty: 10 0RF metoprolol succinate 50 mg tablet extended release 24 hr 50 mg PO DAILY Qty: 90 3RF celecoxib [Celebrex] 200 mg capsule 200 mg PO BID Qty: 30 0RF Primary Care Provider: Foster Reyes Referrals: Foster Reyes MD [Primary Care Provider] - 1 Week Activity Restrictions/Additional Instructions: Your work-up was positive for COVID-19 infection. Chest x-ray negative. Labs are stable. Your blood pressure proved treatment bacteria based level. Take Paxlovid as prescribed. Monitor for any worsening respiratory symptoms. If you can pick pulling machine tender pulse oximeter to monitor your pulse ox if less than 88% or worsening symptoms return to the ED for reevaluation. Otherwise follow-up with your PCP. Disposition Disposition: Home, Self Care Discharge Date/Time: 02/05/23 10:17
[2023-02-05 08:17] VITALS: O2SAT 97
[2023-02-05 08:18] VITALS: BP 180/105
[2023-02-05 08:26] LABS: Absolute Lymphocyte Count 1.46 X10^3/uL (0.83-4.51); Basophil# 0.06 X10^3/uL; Basophil% 0.6 % (0-1); Eosinophil# 0.46 X10^3/uL; Eosinophils% 4.2 % (0-5); Hematocrit 45.2 % (40-54); Hemoglobin 14.3 g/dL (13.0-16.5); Lymphocyte # 1.46 X10^3/ul (0.83-4.51); Lymphocyte % 13.4 % (19-41); Mean Corp Hgb Conc 31.6 g/dL (32-36); Mean Corpuscular Volume 94.8 fL (80-94); Mean Platelet Vol. 10.9 fl (6.2-12.0); Monocyte% 7.4 % (0-10); NRBC Flagged by Analyzer 0 % (0-5); Neutrophil # 8.03 X10^3/uL (2.7-7.7); Neutrophil % 73.8 % (47-70); Platelet Count 241 K/mm3 (150-450); RBC Distribution Width CV 12.5 % (11.6-14.6); Red Blood Count 4.77 M/mm3 (4.6-6.2); White Blood Count 10.9 K/mm3 (4.4-11.0)
[2023-02-05 08:41] LABS: Anion Gap 5 (5-15); BUN 12 mg/dL (7-18); BUN/Creat Ratio 13.3 RATIO (10-20); Calcium,Total 8.9 mg/dL (8.5-10.1); Chloride 110 mmol/L (98-107); EST Glomerular Filtration Rate 93 mL/min (>60); Est Glom Filt Rate - Afr Amer 112 mL/min (>60); Estimated Creatinine Clearance 92.74 ml/min; Glucose 131 mg/dL (74-106); Potassium 4.2 mmol/L (3.5-5.1); Sodium Level 140 mmol/L (136-145)
[2023-02-05 08:49] LABS: BNP,B-Type NATRIURETIC PEPTIDE 92.2 pg/mL (0-100)
[2023-02-05 09:50] VITALS: BP 158/95; PULSE 82; RESP 17; O2SAT 95
== END 2023-02-05 10:17 | disposition home or self-care (01) ==
PROVIDERS: Emergency Provider Emergency Medicine; PCP Family Medicine; Visit Provider Emergency Medicine
DX: U07.1 COVID-19 (principal); E11.9 Type 2 diabetes mellitus without complications; Z79.4 Long term (current) use of insulin; E03.9 Hypothyroidism, unspecified; G47.33 Obstructive sleep apnea (adult) (pediatric); I10 Essential (primary) hypertension; Z99.89 Dependence on other enabling machines and devices; Z79.899 Other long term (current) drug therapy; Z79.84 Long term (current) use of oral hypoglycemic drugs; F32.A Depression, unspecified; F41.9 Anxiety disorder, unspecified; Z79.82 Long term (current) use of aspirin; Z79.85 Long-term (current) use of injectable non-insulin antidiabetic drugs
CPT/HCPCS: 71045; 80048; 83880; 85025; 87428; 93005; 99284; A4216

== ENCOUNTER → 2023-03-13 | Outpatient (CLI) | payer MEDICARE, SELFPAY ==
[2023-03-13 10:48] LABS: Absolute Lymphocyte Count 2.77 X10^3/uL (0.83-4.51); Absolute Neutrophil Count 5.7 X10^3/uL (2.0-7.7); Basophil# 0.07 X10^3/uL; Basophil% 0.7 % (0-1); Hematocrit 44.5 % (40-54); Hemoglobin 14.3 g/dL (13.0-16.5); Lymphocyte # 2.77 X10^3/ul (0.83-4.51); Mean Corp Hgb Conc 32.1 g/dL (32-36); Mean Corpuscular Hgb 30.1 pg (27.0-32.0); Mean Corpuscular Volume 93.7 fL (80-94); Mean Platelet Vol. 11.5 fl (6.2-12.0); Monocyte# 0.86 X10^3/uL; Monocyte% 8.7 % (0-10); NRBC Flagged by Analyzer 0 % (0-5); Neutrophil # 5.68 X10^3/uL (2.7-7.7); Neutrophil % 57.3 % (47-70); Platelet Count 246 K/mm3 (150-450); RBC Distribution Width CV 12.5 % (11.6-14.6); RBC Distribution Width SD 43.5 fl (35.1-43.9); Red Blood Count 4.75 M/mm3 (4.6-6.2); White Blood Count 9.9 K/mm3 (4.4-11.0)
[2023-03-13 11:13] LABS: Hemoglobin A1c 6.7 % (3.8-5.6)
[2023-03-13 11:30] LABS: ALB/GLOB Ratio 0.9 RATIO (0.9-2.4); AST(SGOT) 24 U/L (15-37); Alanine Aminotransfer ALT/SGPT 31 U/L (16-61); Albumin, Serum 3.5 g/dL (3.2-5.0); Alkaline Phosphatase 112 U/L (45-117); Anion Gap 7 (5-15); BUN 17 mg/dL (7-18); BUN/Creat Ratio 17.6 RATIO (10-20); Calcium,Total 9.2 mg/dL (8.5-10.1); Chloride 104 mmol/L (98-107); Cholesterol 170 mg/dL (200); Creatinine, Serum 0.97 mg/dL (0.70-1.30); EST Glomerular Filtration Rate 86 mL/min (>60); Est Glom Filt Rate - Afr Amer 104 mL/min (>60); Globulin 3.9 g/dL (2.2-4.2); Glucose 144 mg/dL (74-106); High Density Lipoprotein 70 mg/dL; Potassium 4.4 mmol/L (3.5-5.1); Protein, Total 7.4 g/dL (6.4-8.2); Sodium Level 137 mmol/L (136-145); T4 Free Direct 1.36 ng/dL (0.76-1.46); Triglycerides 233 mg/dL; Very Low Density Lipoprotein 47 mg/dL (5-40)
== END | disposition home or self-care (01) ==
LOC: MTLAB 09:01
PROVIDERS: PCP Family Medicine; Referring Provider Family Medicine; Visit Provider Family Medicine
DX: E03.9 Hypothyroidism, unspecified (principal); E11.8 Type 2 diabetes mellitus with unspecified complications
CPT/HCPCS: 36415; 80053; 80061; 83036; 84439; 84443; 85025

== ENCOUNTER → 2023-06-13 | Outpatient (CLI) | payer MEDICARE, SELFPAY | END | disposition home or self-care (01) | LOC: LABSPEC 12:37 | PROVIDERS: PCP Family Medicine; Referring Provider Surgery; Visit Provider Surgery | DX: L02.419 Cutaneous abscess of limb, unspecified (principal) | CPT/HCPCS: 87070; 87075; 87077; 87186; 87205 ==

== ENCOUNTER → 2023-07-10 | Outpatient (CLI) | payer MEDICARE, SELFPAY ==
[2023-07-10 12:05] LABS: Bacteria 0 SEEN /hpf (None Seen); Red Blood Cells-Urine 0 SEEN /hpf (0-5); Squamous Epithelial Cells - UA 0 SEEN /hpf (0-5); White Blood Cells 0 SEEN /hpf (0-5)
[2023-07-10 15:16] LABS: Color, Urine Yellow (Yellow); Glucose, Dipstick Normal (Normal); Ketone-Dipstick 5 mg/dl (Negative); Leukocyte Esterase-Dipstick Negative /ul (Negative); Nitrite-Dipstick Negative (Negative); Occult Blood-Urine Negative /ul (Negative); Protein-Dipstick 15 mg/dl (Negative); Specific Gravity, Urine 1.025 (1.002-1.030); Urine Bilirubin Dipstick Negative (Negative); Urine Clarity Clear (Clear); Urine Urobilinogen Normal (Normal)
[2023-07-10 15:19] LABS: Absolute Lymphocyte Count 2.95 X10^3/uL (0.83-4.51); Absolute Neutrophil Count 4.5 X10^3/uL (2.0-7.7); Basophil# 0.05 X10^3/uL; Basophil% 0.6 % (0-1); Eosinophil# 0.22 X10^3/uL; Eosinophils% 2.6 % (0-5); Hematocrit 42.6 % (40-54); Hemoglobin 13.4 g/dL (13.0-16.5); Lymphocyte # 2.95 X10^3/ul (0.83-4.51); Lymphocyte % 34.7 % (19-41); Mean Corp Hgb Conc 31.5 g/dL (32-36); Mean Corpuscular Hgb 29.8 pg (27.0-32.0); Mean Corpuscular Volume 94.7 fL (80-94); Mean Platelet Vol. 11.3 fl (6.2-12.0); Monocyte# 0.77 X10^3/uL; NRBC Flagged by Analyzer 0 % (0-5); Neutrophil # 4.49 X10^3/uL (2.7-7.7); Neutrophil % 52.7 % (47-70); Platelet Count 244 K/mm3 (150-450); RBC Distribution Width CV 13.2 % (11.6-14.6); RBC Distribution Width SD 45.7 fl (35.1-43.9); White Blood Count 8.5 K/mm3 (4.4-11.0)
[2023-07-10 15:44] LABS: Hemoglobin A1c 7.6 % (3.8-5.6)
[2023-07-10 15:50] LABS: AST(SGOT) 26 U/L (15-37); Alanine Aminotransfer ALT/SGPT 38 U/L (16-61); Albumin, Serum 3.4 g/dL (3.2-5.0); Alkaline Phosphatase 104 U/L (45-117); Anion Gap 5 (5-15); BUN 12 mg/dL (7-18); BUN/Creat Ratio 12.8 RATIO (10-20); Calcium,Total 8.8 mg/dL (8.5-10.1); Chloride 107 mmol/L (98-107); Cholesterol 131 mg/dL (200); Creatinine, Serum 0.94 mg/dL (0.70-1.30); EST Glomerular Filtration Rate 88 mL/min (>60); Est Glom Filt Rate - Afr Amer 107 mL/min (>60); Globulin 3.4 g/dL (2.2-4.2); Glucose 170 mg/dL (74-106); High Density Lipoprotein 53 mg/dL; Magnesium 2.2 mg/dL (1.6-2.6); Potassium 4.2 mmol/L (3.5-5.1); Protein, Total 6.8 g/dL (6.4-8.2); Sodium Level 139 mmol/L (136-145); T4 Free Direct 1.25 ng/dL (0.76-1.46); Thyroid Stim Hormone (TSH) 0.93 uIU/mL (0.358-3.74); Triglycerides 152 mg/dL; Very Low Density Lipoprotein 30 mg/dL (5-40)
[2023-07-10 15:58] LABS: Mucous, Urine 2+ /hpf (<or=2+)
[2023-07-10 16:12] LABS: Microalbumin,Random Urine 14.5 mg/L (NO RANGE EST.); Microalbumin:Creatinine Ratio 8.6 mg/g CRE (<30 mg/g CRE)
== END | disposition home or self-care (01) ==
LOC: MFPLAB 12:03
PROVIDERS: PCP Family Medicine; Visit Provider Family Medicine
DX: E11.8 Type 2 diabetes mellitus with unspecified complications (principal); I47.10 Supraventricular tachycardia, unspecified; E03.9 Hypothyroidism, unspecified
CPT/HCPCS: 36415; 80053; 80061; 81001; 82043; 82570; 83036; 83735; 84439; 84443; 85025

== ENCOUNTER → 2024-01-14 | Outpatient (CLI) | payer MEDICARE, SELFPAY ==
[2024-01-14 09:55] LABS: Bacteria 0 SEEN /hpf (None Seen); Mucous, Urine 0 SEEN /hpf (<or=2+); Red Blood Cells-Urine 0 SEEN /hpf (0-5); Squamous Epithelial Cells - UA 0 SEEN /hpf (0-5)
[2024-01-14 12:18] LABS: Color, Urine Yellow (Yellow); Glucose, Dipstick Normal (Normal); Ketone-Dipstick Negative (Negative); Leukocyte Esterase-Dipstick Negative /ul (Negative); Nitrite-Dipstick Negative (Negative); Occult Blood-Urine Negative /ul (Negative); Protein-Dipstick Negative (Negative); Urine Bilirubin Dipstick Negative (Negative); Urine Clarity Clear (Clear); Urine Urobilinogen Normal (Normal)
[2024-01-14 12:28] LABS: Absolute Lymphocyte Count 2.82 X10^3/uL (0.83-4.51); Absolute Neutrophil Count 5.8 X10^3/uL (2.0-7.7); Basophil# 0.07 X10^3/uL; Basophil% 0.7 % (0-1); Eosinophil# 0.26 X10^3/uL; Eosinophils% 2.6 % (0-5); Hematocrit 44.5 % (40-54); Hemoglobin 14.3 g/dL (13.0-16.5); Lymphocyte # 2.82 X10^3/ul (0.83-4.51); Lymphocyte % 28.6 % (19-41); Mean Corp Hgb Conc 32.1 g/dL (32-36); Mean Corpuscular Volume 93.5 fL (80-94); Monocyte# 0.83 X10^3/uL; Monocyte% 8.4 % (0-10); NRBC Flagged by Analyzer 0 % (0-5); Neutrophil # 5.84 X10^3/uL (2.7-7.7); Neutrophil % 59.3 % (47-70); Platelet Count 304 K/mm3 (150-450); RBC Distribution Width CV 12.7 % (11.6-14.6); RBC Distribution Width SD 43.8 fl (35.1-43.9); Red Blood Count 4.76 M/mm3 (4.6-6.2); White Blood Count 9.9 K/mm3 (4.4-11.0)
[2024-01-14 12:32] LABS: White Blood Cells 0-5 SEEN /hpf (0-5)
[2024-01-14 13:00] LABS: Microalbumin,Random Urine 7.1 mg/L (NO RANGE EST.)
[2024-01-14 13:49] LABS: ALB/GLOB Ratio 0.9 RATIO (0.9-2.4); AST(SGOT) 33 U/L (15-37); Alanine Aminotransfer ALT/SGPT 39 U/L (16-61); Albumin, Serum 3.5 g/dL (3.2-5.0); Alkaline Phosphatase 123 U/L (45-117); Anion Gap 7 (5-15); BUN 19 mg/dL (7-18); BUN/Creat Ratio 16.7 RATIO (10-20); Calcium,Total 9.5 mg/dL (8.5-10.1); Chloride 105 mmol/L (98-107); Creatinine, Serum 1.14 mg/dL (0.70-1.30); EST Glomerular Filtration Rate 70 mL/min (>60); Est Glom Filt Rate - Afr Amer 85 mL/min (>60); Globulin 3.8 g/dL (2.2-4.2); Glucose 162 mg/dL (74-106); Hemoglobin A1c 7.9 % (3.8-5.6); Potassium 4.3 mmol/L (3.5-5.1); Protein, Total 7.3 g/dL (6.4-8.2); Sodium Level 136 mmol/L (136-145); T4 Free Direct 0.74 ng/dL (0.76-1.46)
== END | disposition home or self-care (01) ==
LOC: MFPLAB 09:50
PROVIDERS: PCP Family Medicine; Visit Provider Family Medicine
DX: E11.8 Type 2 diabetes mellitus with unspecified complications (principal); E03.9 Hypothyroidism, unspecified
CPT/HCPCS: 36415; 80053; 81001; 82043; 82570; 83036; 84439; 84443; 85025

== ENCOUNTER 2024-01-31 17:47 | Emergency (ER) | payer MEDICARE, SELFPAY ==
[2024-01-31 17:48] VITALS: BP 146/81; PULSE 73; RESP 22; TEMP 36.4; O2SAT 99
[2024-01-31 17:50] VITALS: BMI 61.3
[2024-01-31 18:56] LABS: Absolute Lymphocyte Count 2.16 X10^3/uL (0.83-4.51); Absolute Neutrophil Count 6.1 X10^3/uL (2.0-7.7); Basophil# 0.06 X10^3/uL; Basophil% 0.6 % (0-1); Eosinophil# 0.21 X10^3/uL; Eosinophils% 2.2 % (0-5); Hematocrit 43.2 % (40-54); Lymphocyte # 2.16 X10^3/ul (0.83-4.51); Lymphocyte % 22.5 % (19-41); Mean Corp Hgb Conc 32.4 g/dL (32-36); Mean Corpuscular Hgb 30.2 pg (27.0-32.0); Mean Corpuscular Volume 93.1 fL (80-94); Mean Platelet Vol. 10.4 fl (6.2-12.0); Monocyte# 1.04 X10^3/uL; Monocyte% 10.8 % (0-10); NRBC Flagged by Analyzer 0 % (0-5); Neutrophil # 6.09 X10^3/uL (2.7-7.7); Neutrophil % 63.6 % (47-70); Platelet Count 286 K/mm3 (150-450); RBC Distribution Width CV 12.9 % (11.6-14.6); RBC Distribution Width SD 43.9 fl (35.1-43.9); Red Blood Count 4.64 M/mm3 (4.6-6.2); White Blood Count 9.6 K/mm3 (4.4-11.0)
[2024-01-31 19:12] LABS: Anion Gap 6 (5-15); BUN 12 mg/dL (7-18); BUN/Creat Ratio 14.2 RATIO (10-20); Calcium,Total 9.6 mg/dL (8.5-10.1); Chloride 106 mmol/L (98-107); Creatinine, Serum 0.85 mg/dL (0.70-1.30); EST Glomerular Filtration Rate 99 mL/min (>60); Est Glom Filt Rate - Afr Amer 120 mL/min (>60); Estimated Creatinine Clearance 161.71 ml/min; Glucose 143 mg/dL (74-106); Potassium 4.3 mmol/L (3.5-5.1); Sodium Level 138 mmol/L (136-145)
--- NOTE | 2024-01-31 19:21 | EDS_ITS ---
HPI History of Present Illness Chief Complaint: Wound Detail of Chief Complaint: Boil posterior left thigh Informant: patient Onset/Context/Timing Onset: Days Context: Sudden Onset Timing: Continuous Quality: Suspect the boil has spontaneously drained Location: Posterior mid left thigh Current Severity: Mild Maximum Severity: Moderate Worsened by: History of diabetes Relieved by: spontaneously ruptured Associated Symptoms Associated Symptoms: no history rheumatic fever. No allergies to antibiotics. Narrative Narrative: Patient is a 58-year-old male with a BMI of 61.4, type 2 diabetes, essential hypertension, prior abscesses who presents because of concern for abscess posterior mid left thigh. He thinks it spontaneously drained. He denies fever, chills night sweats. He denies rheumatic fever, heart murmur, SBE or being immune suppressed. He denies cardiac or respiratory symptoms. He denies GI symptoms. He denies polyuria, nocturia or polydipsia. Prior similar symptoms: Yes Recent Illness/Hospitalization: No PFSH PFSH Medical History RANCHO on CPAP Essential hypertension Anxiety Depression Diabetes Hypothyroidism Hypertension Home Medications ?Medication ?Instructions ?Recorded ?Last Taken ?Type levothyroxine 200 mcg tablet 200 mcg PO DAILY 07/25/20 Unknown History metformin 500 mg tablet 1,000 mg PO BID 07/25/20 Unknown History paroxetine HCl 40 mg tablet 40 mg PO DAILY 07/25/20 Unknown History rosuvastatin 40 mg tablet 40 mg PO QHS 07/25/20 Unknown History aspirin 81 mg tablet,delayed 81 mg PO DAILY 09/27/20 Unknown History release multivitamin 1 cap DAILY 09/27/20 Unknown History lisinopril 20 mg tablet 20 mg PO DAILY 11/22/20 Unknown History insulin glargine U-300 conc 300 46 unit subcut DAILY 11/24/20 Unknown History unit/mL (1.5 mL) subcutaneous pen levothyroxine 50 mcg tablet 50 mcg PO DAILY 11/24/20 Unknown History melatonin 10 mg tablet 5 mg PO QHS 11/24/20 Unknown History semaglutide 0.25 mg or 0.5 mg (2 1 mg subcut QWEEK 11/24/20 Unknown History mg/1.5 mL) subcutaneous pen injector (Ozempic) promethazine 25 mg tablet 25 mg PO Q6H PRN PRN Nausea #10 04/16/22 Unknown Rx TABLETS celecoxib 200 mg capsule (Celebrex) 200 mg PO BID #30 caps 01/03/23 Unknown Rx nirmatrelvir 300 mg (150 mg See Rx Instructions PO .COMPLEX 02/05/23 Unknown Rx x2)-ritonavir 100 mg tablet,dose #30 tabs pack (Paxlovid) metoprolol succinate 50 mg 50 mg PO DAILY #90 tabs 03/27/23 Unknown Rx tablet,extended release 24 hr mupirocin 2 % topical ointment 1 applic topical BID #15 grams 06/13/23 Unknown Rx doxycycline hyclate 100 mg capsule 100 mg PO BID #20 caps 10/22/23 Unknown Rx doxycycline monohydrate 100 mg 100 mg PO BID #14 CAPSULES 01/31/24 Unknown Rx capsule Allergy/AdvReac Type Severity Reaction Status Date / Time escitalopram (From Lexapro) AdvReac Rash Verified 01/31/24 17:48 Family History Father Hypertension Mother Myocardial infarction Diabetes Hypertension Sister Diabetes Surgical History History of hip surgery Social History household members: none Smoking Status: Never smoker alcohol intake: never substance use type: does not use caffeine: Yes Type: carbonated beverages Number of servings: 1 and tea Number of servings: 3 ROS ROS ED Constitutional Constitutional ED: Denies chills, fever(s), subjective, sweats or weight loss Eyes Eyes: Denies blurry vision Cardiovascular Cardiovascular: Denies chest pain or palpitations Respiratory/Chest Respiratory/Chest: Denies cough, dyspnea or dyspnea on exertion Gastrointestinal Gastrointestinal: Denies abdominal pain, diarrhea, nausea or vomiting Genitourinary Genitourinary ED: Denies dysuria, hematuria or urinary frequency Musculoskeletal Musculoskeletal: Denies arthralgias or myalgias Integumentary Reports abscess and rash Neurologic Neurologic: Denies headache(s) or paresthesias Hematologic/Lymphatic Hematologic/Lymphatic: Reports systems reviewed and no addt'l complaints, except as documented EXAM Physical Exam Const Vital Signs: 01/31/24 17:48 Temperature 97.5 F L Temperature Source Oral Pulse Rate 73 Respiratory Rate 22 H Blood Pressure 146/81 H Blood Pressure Mean 102 Pulse Ox 99 Oxygen Delivery Method Room Air Positive well nourished and well developed Constitutional Narrative: BMI 61.4. General Appearance ED: well developed and NAD; Negative for pallor HEENT Reports moist mucous membranes HEENT Narrative: Head is atraumatic, cephalic. Ears normal. Nares patent. Mucosa moist. Eyes PERRL and EOMs intact bilaterally General Eye ED: Negative for pale conjunctiva or scleral icterus Neck no lymphadenopathy, supple and no JVD Resp normal respiratory effort and clear to auscultation bilaterally Cardio regular rate, regular rhythm, S1 normal heart sound, S2 normal heart sound and no murmurs Extremity Extremity Narrative: Patient has a 4 to 4.5 cm circular lesion consistent with cellulitis. There is an eschar in the middle. There is no fluctuance. There is warmth noted. There is no lymphangitis. There is no inguinal lymphadenopathy. General Extremety ED: Yes tenderness Neuro oriented x3, CN's II-XII intact bilaterally and no sensory deficits noted Sensorium / Orientation: alert Psych mental status grossly normal Skin No no wounds and skin turgor normal General Skin Exam: elasticity normal; Negative for jaundice or pallor MDM MDM MDM Narrative Medical decision making narrative: Because patient is diabetic will obtain basic metabolic panel to assess glucose anion gap as well as electrolytes and renal function. Renal function determine if antibiotic doses need to be adjusted. White count and differential determined patient is a candidate for in or outpatient based on the size of the cellulitis and the fact that he is diabetic. Lab Data Attestation: I reviewed the patient's lab results. Lab results narrative: White count is normal. Basic metabolic panel does note a glucose of 143 with normal CO2 anion gap otherwise unremarkable. Labs: Laboratory Results - last 24 hr 01/31/24 18:49 WBC 9.6 RBC 4.64 Hgb 14.0 Hct 43.2 MCV 93.1 MCH 30.2 MCHC 32.4 RDW Std Deviation 43.9 RDW Coeff of Juan 12.9 Plt Count 286 MPV 10.4 Immature Gran % (Auto) 0.300 Neut % (Auto) 63.6 Lymph % (Auto) 22.5 [place] % (Auto) 10.8 H Eos % (Auto) 2.2 Baso % (Auto) 0.6 Absolute Neuts (auto) 6.1 Absolute Lymphs (auto) 2.16 Nucleated RBC % 0 Sodium 138 Potassium 4.3 Chloride 106 Carbon Dioxide 26.0 Anion Gap 6 BUN 12 Creatinine 0.85 Estim Creat Clear Calc 161.71 Est GFR (MDRD) Af Amer 120 Est GFR (MDRD) Non-Af 99 BUN/Creatinine Ratio 14.2 Glucose 143 H Calcium 9.6 Treatment and Re-Evaluation :: Patient was treated with doxycycline. He was instructed follow-up with his doctor to have wound eval in 2 to 3 days. Discharge Plan Triage Chief Complaint: Wound ED Provider: Rey Torres Dx/Rx/DC Orders Clinical Impression: Cellulitis of left thigh, Type 2 diabetes mellitus treated with insulin, Hyperglycemia due to type 2 diabetes mellitus Instructions: ED Cellulitis Prescriptions: New doxycycline monohydrate 100 mg capsule 100 mg PO BID Qty: 14 0RF No Action lisinopril 20 mg tablet 20 mg PO DAILY Ozempic 0.25 mg or 0.5 mg(2 mg/1.5 mL) pen injector 1 mg subcut QWEEK Rx Instructions: for 4 doses mupirocin 2 % ointment 1 applic topical BID Qty: 15 0RF Rx Instructions: Apply to bilateral nares twice daily x 1 week doxycycline hyclate 100 mg capsule 100 mg PO BID Qty: 20 0RF metformin 500 MG tablet 1,000 mg PO BID levothyroxine 200 MCG tablet 200 mcg PO DAILY paroxetine HCl 40 MG tablet 40 mg PO DAILY rosuvastatin 40 MG tablet 40 mg PO QHS levothyroxine 50 mcg tablet 50 mcg PO DAILY Patient Comments: take 1 tablet by mouth once daily insulin glargine U-300 conc 300 unit/mL (1.5 mL) insulin pen 46 unit subcut DAILY Patient Comments: inject 25 units subcutaneously once daily as directed aspirin [Aspir-81] 81 mg Tablet,Delayed Release (Dr/Ec) 81 mg PO DAILY multivitamin Capsule 1 cap DAILY melatonin 10 mg tablet 5 mg PO QHS promethazine [promethazine] 25 MG tablet 25 mg PO Q6H PRN PRN (Reason: Nausea) Qty: 10 0RF Paxlovid 300 mg (150 mg x 2)-100 mg tablets,dose pack See Rx Instructions .ROUTE .COMPLEX Qty: 30 0RF Rx Instructions: take TWO 150 mg tablets of nirmatrelvir with ONE 100 mg tablet of ritonavir twice daily for 5 days celecoxib [Celebrex] 200 mg capsule 200 mg PO BID Qty: 30 0RF metoprolol succinate 50 mg tablet extended release 24 hr 50 mg PO DAILY Qty: 90 3RF Primary Care Provider: Foster Reyes Referrals: Foster Reyes MD [Primary Care Provider] - 3-5 Days Print Language: Indonesian Disposition Disposition: Home, Self Care
[2024-01-31] MEDS: Doxycycline 100 MG CAPSULE PO (19:52)
[2024-01-31 19:54] VITALS: BP 146/81; PULSE 73; RESP 22; TEMP 36.4; O2SAT 99
== END 2024-01-31 19:54 | disposition home or self-care (01) ==
PROVIDERS: Emergency Provider Emergency Medicine; PCP Family Medicine; Visit Provider Emergency Medicine
DX: L03.116 Cellulitis of left lower limb (principal); E11.65 Type 2 diabetes mellitus with hyperglycemia; Z79.4 Long term (current) use of insulin; I10 Essential (primary) hypertension; G47.33 Obstructive sleep apnea (adult) (pediatric); Z99.89 Dependence on other enabling machines and devices; E03.9 Hypothyroidism, unspecified; Z79.899 Other long term (current) drug therapy; Z79.84 Long term (current) use of oral hypoglycemic drugs; F32.A Depression, unspecified; F41.9 Anxiety disorder, unspecified; Z79.82 Long term (current) use of aspirin; Z79.890 Hormone replacement therapy; Z79.85 Long-term (current) use of injectable non-insulin antidiabetic drugs
CPT/HCPCS: 80048; 85025; 99283; A4216

== ENCOUNTER 2024-05-15 17:17 | Emergency (ER) | payer MEDICARE, SELFPAY ==
[2024-05-15 17:18] VITALS: BP 172/87; PULSE 72; RESP 22; TEMP 36.8; O2SAT 98
[2024-05-15 18:05] VITALS: BMI 59.6
--- NOTE | 2024-05-15 18:05 | US_ITS ---
STUDY: VENOUS DOPPLER ULTRASOUND - LEFT LOWER EXTREMITY REASON FOR EXAM: Male, 59 years old. LT KNEE PAIN TECHNIQUE: Ultrasound evaluation of the deep vein system to include lo-scale imaging and compression was performed. Lo-scale imaging and Doppler sonographic evaluation, including duplex spectral analysis and qualitative color flow sonography, was performed. COMPARISON: None. FINDINGS: Common Femoral Vein: Normal compression, spontaneity and augmentation. Normal color Doppler. Common Femoral Vein/Greater Saphenous Junction: Normal compression, spontaneity and augmentation. Normal color Doppler. Deep Femoral Vein: Normal compression, spontaneity and augmentation. Normal color Doppler. Femoral Proximal: Normal compression, spontaneity and augmentation. Normal color Doppler. Femoral Middle: Normal compression, spontaneity and augmentation. Normal color Doppler. Femoral Distal: Normal compression, spontaneity and augmentation. Normal color Doppler. Popliteal Vein: Normal compression, spontaneity and augmentation. Normal color Doppler. Posterior Tibial Vein: Normal compression, spontaneity and augmentation. Normal color Doppler. Peroneal Vein: Normal compression, spontaneity and augmentation. Normal color Doppler. US/Venous Duplex Imag/Limited/Uni IMPRESSION: Normal venous Doppler ultrasound of the lower extremity. Electronically Signed: Josue Laguerre MD at 18:54 EST Reading Location ID and State: [address] [place] [address] Tel , Service support ,
[2024-05-15] MEDS: Ibuprofen 600 MG Tablet PO (18:08)
--- NOTE | 2024-05-15 18:35 | RAD_ITS ---
STUDY: X-RAY - LEFT KNEE REASON FOR EXAM: Male, 59 years old. Injury/Pain TECHNIQUE: 4 view(s) of the knee. COMPARISON: None. FINDINGS: Normal visualized distal femur. Normal visualized proximal tibia and fibula. Normal proximal tibiofibular articulation. Mild degree narrowed medial femorotibial compartment. Normal lateral femorotibial compartment. Narrowed patellofemoral articulation. The soft tissue structures are unremarkable. RAD/Knee 4 or More Views IMPRESSION: . Degenerative changes. No acute fracture or dislocation Electronically Signed: Josue Laguerre MD at 19:02 EST Reading Location ID and State: [address] [place] [address] Tel , Service support ,
--- NOTE | 2024-05-15 18:36 | ED.VIS.LOWEX ---
HPI History of Present Illness Chief Complaint: Lower Extremity Injury Informant: patient Narrative Narrative: Patient is a 59 year old male with history of PSA, HTN, DM2, hypothyroidism and chronic pain (follows with pain management) presenting for atraumatic left knee pain. Patient states the pain has been going on for the past week. Denies any injury. Notes he has arthritis in his right knee. Denies any new activities. Denies any popping. Denies any numbness in his leg. Does feel like the left lower leg is little bit more swollen. No other complaints or concerns reported at this time. Has not take anything for pain prior to arrival. [facility] Medical History Morbid obesity Hyperlipidemia Supraventricular tachycardia Abscess of head Lumbar radiculopathy Low back pain Osteoarthritis of right knee Right knee pain MRSA (methicillin resistant staph aureus) culture positive Abscess of left thigh Abscess COVID-19 SVT (supraventricular tachycardia) Type 2 diabetes mellitus Anxiety and depression RANCHO on CPAP Essential hypertension Anxiety Diabetes Hypothyroidism Home Medications ?Medication ?Instructions ?Recorded ?Last Taken ?Type levothyroxine 200 mcg tablet 200 mcg PO DAILY 07/25/20 Unknown History metformin 500 mg tablet 1,000 mg PO BID 07/25/20 Unknown History paroxetine HCl 40 mg tablet 40 mg PO DAILY 07/25/20 Unknown History rosuvastatin 40 mg tablet 40 mg PO QHS 07/25/20 Unknown History aspirin 81 mg tablet,delayed 81 mg PO DAILY 09/27/20 Unknown History release multivitamin 1 cap DAILY 09/27/20 Unknown History celecoxib 200 mg capsule (Celebrex) 200 mg PO BID #30 caps 01/03/23 Unknown Rx amlodipine 10 mg tablet 10 mg PO QDAY 03/09/24 Unknown History buspirone 10 mg tablet 10 mg PO BID 03/09/24 Unknown History insulin glargine U-300 conc 300 46 unit subcut QDAY 03/09/24 Unknown History unit/mL (3 mL) subcutaneous pen (Toujeo Max U-300 SoloStar) levothyroxine 300 mcg tablet 300 mcg PO QDAY 03/09/24 Unknown History lisinopril 20 mg tablet 40 mg PO DAILY 03/09/24 Unknown History metoprolol succinate 50 mg 25 mg PO .COMPLEX 03/09/24 Unknown History tablet,extended release 24 hr semaglutide 0.25 mg or 0.5 mg (2 2 mg subcut QWEEK 03/09/24 Unknown History mg/1.5 mL) subcutaneous pen injector (Ozempic) trazodone 100 mg tablet 100 mg PO QDAY 03/09/24 Unknown History doxycycline hyclate 100 mg capsule 100 mg PO BID #20 caps 04/21/24 Unknown Rx Allergy/AdvReac Type Severity Reaction Status Date / Time escitalopram (From Lexapro) AdvReac Rash Verified 05/15/24 17:18 Family History Father Hypertension Mother Myocardial infarction Diabetes Hypertension Sister Diabetes Surgical History History of hip surgery Social History household members: none Smoking Status: Never smoker alcohol intake: never substance use type: does not use caffeine: Yes Type: carbonated beverages Number of servings: 1 and tea Number of servings: 3 ROS ROS ED Constitutional Constitutional ED: Denies chills or fever(s) Respiratory/Chest Respiratory/Chest: Denies dyspnea Musculoskeletal Musculoskeletal: Reports other Details: Left knee pain Integumentary Denies rash Neurologic Neurologic: Denies paresthesias or weakness Hematologic/Lymphatic Hematologic/Lymphatic: Denies easy bleeding or easy bruising EXAM Physical Exam Const Vital Signs: 05/15/24 17:18 05/15/24 21:12 Temperature 98.2 F 98.2 F Temperature Source Temporal Pulse Rate 72 72 Respiratory Rate 22 H 22 H Blood Pressure 172/87 H 160/80 H Blood Pressure Mean 115 106 Pulse Ox 98 98 Oxygen Delivery Method Room Air Positive well nourished, well developed and obese General Appearance ED: well developed and NAD Nutritional Appearance: obese Resp normal respiratory effort Cardio regular rate and regular rhythm Cardio Narrative: 2+ DP pulses Extremity Extremity Narrative: No deformity. Slight swelling noted of the left lower extremity compared to the right. No significant effusion of the left knee appreciated. Normal extensor mechanism. Mild pain with range of motion. No pinpoint tenderness to palpation. No short arc range of motion pain. No palpable cords. Lower extremity compartments are soft. Neuro oriented x3 Sensorium / Orientation: alert Motor Exam: Negative for general weakness Psych mental status grossly normal Skin Lesions: no lesions Rashes: no rashes MDM MDM MDM Narrative Medical decision making narrative: Patient evaluated for atraumatic left knee pain. Denies any trauma. Does have known osteoarthritis. Differential includes knee sprain, osteoarthritis of the knee and DVT. He does not have any associated warmth or redness low suspicion for bursitis, septic joint or gouty arthropathy. No short arc range of motion pain. X-ray of the knee reviewed by myself as well as radiology shows degenerative changes no acute fracture or other acute abnormality. Venous duplex negative for DVT. Chart review shows that patient has normal kidney function. Is given a dose of Motrin in the ER. We discharged home with referral for Ortho and encouraged follow-up as well with his pain management doctor. Started on NSAIDs but instructed to hold his celecoxib in the meantime. Patient agreeable plan of care. Ambulatory in the ER. Given return precautions. Discharged home in stable condition. Radiography Diagnostic Testing: Clinical Impression(s) from Imaging Studies Venous Duplex 05/15/24 18:05 IMPRESSION: Normal venous Doppler ultrasound of the lower extremity. Electronically Signed: Josue Laguerre MD at 18:54 EST Reading Location ID and State: [address] [place] [address] Tel , Service support , Knee X-Ray 05/15/24 18:35 IMPRESSION: . Degenerative changes. No acute fracture or dislocation Electronically Signed: Josue Laguerre MD at 19:02 EST Reading Location ID and State: [address] [place] [address] Tel , Service support , Discharge Plan Triage Chief Complaint: Lower Extremity Injury ED Provider: Tamy Tanner Dx/Rx/DC Orders Clinical Impression: Acute pain of left knee Instructions: ED Knee Pain of Uncertain Cause Prescriptions: No Action lisinopril 20 mg tablet 40 mg PO DAILY Ozempic 0.25 mg or 0.5 mg(2 mg/1.5 mL) pen injector 2 mg subcut QWEEK Rx Instructions: for 4 doses levothyroxine 300 mcg tablet 300 mcg PO QDAY buspirone 10 mg tablet 10 mg PO BID insulin glargine U-300 conc [Toujeo Max U-300 SoloStar] 300 unit/mL (3 mL) insulin pen 46 unit subcut QDAY metoprolol succinate 50 mg tablet extended release 24 hr 25 mg PO .COMPLEX Rx Instructions: daily trazodone 100 mg tablet 100 mg PO QDAY amlodipine 10 mg tablet 10 mg PO QDAY metformin 500 MG tablet 1,000 mg PO BID levothyroxine 200 MCG tablet 200 mcg PO DAILY paroxetine HCl 40 MG tablet 40 mg PO DAILY rosuvastatin 40 MG tablet 40 mg PO QHS aspirin [Aspir-81] 81 mg Tablet,Delayed Release (Dr/Ec) 81 mg PO DAILY multivitamin Capsule 1 cap DAILY celecoxib [Celebrex] 200 mg capsule 200 mg PO BID Qty: 30 0RF doxycycline hyclate 100 mg capsule 100 mg PO BID Qty: 20 0RF Primary Care Provider: Foster Reyes Referrals: Foster Reyes MD [Primary Care Provider] - Kirk Horton MD [Med Staff - Active Staff] - 1 Week if not improving Activity Restrictions/Additional Instructions: You do not have any broken bones on your x-ray but you do have arthritis. Ultrasound was negative for blood clot in the leg. Please take [id number] ibuprofen to help with your pain. Follow-up with pain management as well as orthopedics. You have been given referral. While taking ibuprofen please hold your Celecoxib. Print Language: Tajik Disposition Disposition: Home, Self Care Discharge Date/Time: 05/15/24 21:41
[2024-05-15 21:12] VITALS: BP 160/80; PULSE 72; RESP 22; TEMP 36.8; O2SAT 98
== END 2024-05-15 21:41 | disposition home or self-care (01) ==
PROVIDERS: Emergency Provider Emergency Medicine; PCP Family Medicine; Visit Provider Emergency Medicine
DX: M25.562 Pain in left knee (principal); E11.9 Type 2 diabetes mellitus without complications; I10 Essential (primary) hypertension; E78.5 Hyperlipidemia, unspecified; G47.33 Obstructive sleep apnea (adult) (pediatric); Z99.89 Dependence on other enabling machines and devices; E03.9 Hypothyroidism, unspecified; Z79.890 Hormone replacement therapy; Z79.84 Long term (current) use of oral hypoglycemic drugs; Z79.82 Long term (current) use of aspirin; F41.8 Other specified anxiety disorders; Z79.85 Long-term (current) use of injectable non-insulin antidiabetic drugs; M79.89 Other specified soft tissue disorders
CPT/HCPCS: 73564; 93971; 99282

== ENCOUNTER → 2024-05-19 | Outpatient (CLI) | payer MEDICARE, SELFPAY ==
[2024-05-19 17:55] LABS: Absolute Lymphocyte Count 2.35 X10^3/uL (0.83-4.51); Absolute Neutrophil Count 4.4 X10^3/uL (2.0-7.7); Basophil# 0.05 X10^3/uL; Basophil% 0.7 % (0-1); Eosinophil# 0.29 X10^3/uL; Eosinophils% 3.8 % (0-5); Hematocrit 45.5 % (40-54); Hemoglobin 14.7 g/dL (13.0-16.5); Lymphocyte # 2.35 X10^3/ul (0.83-4.51); Lymphocyte % 30.6 % (19-41); Mean Corp Hgb Conc 32.3 g/dL (32-36); Mean Corpuscular Hgb 29.6 pg (27.0-32.0); Mean Corpuscular Volume 91.5 fL (80-94); Mean Platelet Vol. 10.8 fl (6.2-12.0); Monocyte# 0.61 X10^3/uL; Monocyte% 7.9 % (0-10); NRBC Flagged by Analyzer 0 % (0-5); Neutrophil # 4.36 X10^3/uL (2.7-7.7); Neutrophil % 56.7 % (47-70); Platelet Count 270 K/mm3 (150-450); RBC Distribution Width CV 12.8 % (11.6-14.6); RBC Distribution Width SD 42.9 fl (35.1-43.9); Red Blood Count 4.97 M/mm3 (4.6-6.2); White Blood Count 7.7 K/mm3 (4.4-11.0)
[2024-05-19 18:24] LABS: Hemoglobin A1c 7.7 % (3.8-5.6)
[2024-05-19 21:15] LABS: ALB/GLOB Ratio 0.9 RATIO (0.9-2.4); AST(SGOT) 28 U/L (15-37); Alanine Aminotransfer ALT/SGPT 39 U/L (16-61); Albumin, Serum 3.6 g/dL (3.2-5.0); Alkaline Phosphatase 119 U/L (45-117); Anion Gap 8 (5-15); BUN 17 mg/dL (7-18); BUN/Creat Ratio 18.7 RATIO (10-20); Calcium,Total 9.6 mg/dL (8.5-10.1); Chloride 105 mmol/L (98-107); Cholesterol 160 mg/dL (200); Creatinine, Serum 0.91 mg/dL (0.70-1.30); EST Glomerular Filtration Rate 92 mL/min (>60); Est Glom Filt Rate - Afr Amer 111 mL/min (>60); Globulin 4.1 g/dL (2.2-4.2); Glucose 150 mg/dL (74-106); High Density Lipoprotein 56 mg/dL; Magnesium 2.2 mg/dL (1.6-2.6); Potassium 4.3 mmol/L (3.5-5.1); Protein, Total 7.7 g/dL (6.4-8.2); Sodium Level 136 mmol/L (136-145); Triglycerides 213 mg/dL; Very Low Density Lipoprotein 43 mg/dL (5-40)
== END | disposition home or self-care (01) ==
LOC: MFPLAB 15:47
PROVIDERS: PCP Family Medicine; Referring Provider Family Medicine; Visit Provider Family Medicine
DX: E11.8 Type 2 diabetes mellitus with unspecified complications (principal); I47.10 Supraventricular tachycardia, unspecified; Z12.5 Encounter for screening for malignant neoplasm of prostate
CPT/HCPCS: 36415; 80053; 80061; 83036; 83735; 84153; 84443; 85025; G0103

== ENCOUNTER 2024-06-12 14:48 | Outpatient (RCR) | payer MEDICARE, MEDICAID, SELFPAY | END 2024-06-12 14:51 | disposition home or self-care (01) | LOC: PT 14:48 | PROVIDERS: PCP Family Medicine; Referring Provider Orthopaedic Surgery Orthopaedic Surgery of the Spine; Visit Provider Orthopaedic Surgery Orthopaedic Surgery of the Spine | DX: M54.16 Radiculopathy, lumbar region (principal) ==

== ENCOUNTER → 2024-06-24 | Outpatient (CLI) | payer MEDICARE, MEDICAID, SELFPAY ==
--- NOTE | 2024-06-24 08:06 | RAD_ITS ---
PROCEDURE: SHOULDER MIN 2 VIEWS REASON FOR EXAM: Pain. TECHNIQUE: Five view right shoulder series COMPARISON: None. RAD/Shoulder min 2 Views IMPRESSION: Mild degenerative changes are seen of the right acromioclavicular joint. The right glenohumeral joint demonstrates minimal degenerative changes, without apparent joint narrowing. Satisfactory alignment is seen. No fracture or other significant abnormality is identified Reading Location: [id number]
== END | disposition home or self-care (01) ==
LOC: MTRAD 08:06
PROVIDERS: PCP Family Medicine; Referring Provider Family Medicine; Visit Provider Family Medicine
DX: M25.511 Pain in right shoulder (principal)
CPT/HCPCS: 73030

== ENCOUNTER → 2024-09-03 | Outpatient (CLI) | payer MEDICARE, MEDICAID, SELFPAY | END | disposition home or self-care (01) | LOC: LABSPEC 15:43 | PROVIDERS: PCP Family Medicine; Referring Provider Physician Assistant; Visit Provider Physician Assistant | DX: L02.416 Cutaneous abscess of left lower limb (principal) | CPT/HCPCS: 87070; 87075; 87077; 87186; 87205 ==

== ENCOUNTER → 2024-10-06 | Outpatient (CLI) | payer MEDICARE, MEDICAID, SELFPAY ==
[2024-10-06 18:04] LABS: Absolute Lymphocyte Count 2.24 X10^3/uL (0.83-4.51); Absolute Neutrophil Count 5.1 X10^3/uL (2.0-7.7); Basophil# 0.08 X10^3/uL; Eosinophil# 0.27 X10^3/uL; Eosinophils% 3.2 % (0-5); Hematocrit 42.9 % (40-54); Hemoglobin 14.2 g/dL (13.0-16.5); Lymphocyte # 2.24 X10^3/ul (0.83-4.51); Mean Corp Hgb Conc 33.1 g/dL (32-36); Mean Corpuscular Hgb 30.3 pg (27.0-32.0); Mean Corpuscular Volume 91.5 fL (80-94); Mean Platelet Vol. 11.4 fl (6.2-12.0); Monocyte# 0.65 X10^3/uL; Monocyte% 7.8 % (0-10); NRBC Flagged by Analyzer 0 % (0-5); Neutrophil # 5.05 X10^3/uL (2.7-7.7); Neutrophil % 60.8 % (47-70); Platelet Count 280 K/mm3 (150-450); RBC Distribution Width CV 12.4 % (11.6-14.6); RBC Distribution Width SD 41.7 fl (35.1-43.9); Red Blood Count 4.69 M/mm3 (4.6-6.2); White Blood Count 8.3 K/mm3 (4.4-11.0)
[2024-10-06 18:36] LABS: Hemoglobin A1c 6.2 % (<=5.6)
[2024-10-06 18:49] LABS: ALB/GLOB Ratio 1.3 RATIO (0.9-2.4); AST(SGOT) 25 U/L (<=37); Alanine Aminotransfer ALT/SGPT 24 U/L (<=46); Albumin, Serum 3.9 g/dL (3.5-5.0); Alkaline Phosphatase 112 U/L (40-129); Anion Gap 11 (5-15); BUN 13 mg/dL (4-19); BUN/Creat Ratio 15.7 RATIO (10-20); Calcium,Total 9.5 mg/dL (7.6-11.0); Carbon Dioxide 22.5 mmol/L (21.0-32.0); Chloride 106 mmol/L (98-108); Cholesterol 128 mg/dL (<=200); Creatinine, Serum 0.81 mg/dL (0.70-1.20); EST Glomerular Filtration Rate 103 (>60); Glucose 109 mg/dL (70-99); High Density Lipoprotein 45 mg/dL; Low Density Lipoprotein Calc. 52 mg/dL; Potassium 4.4 mmol/L (3.3-5.1); Protein, Total 6.9 g/dL (5.9-8.4); Sodium Level 140 mmol/L (133-145); Thyroid Stim Hormone (TSH) 0.025 uIU/mL (0.300-4.200); Triglycerides 154 mg/dL; Very Low Density Lipoprotein 31 mg/dL (5-40); cholesterol:hdl ratio screen 2.86
== END | disposition home or self-care (01) ==
LOC: MFPLAB 15:18
PROVIDERS: PCP Family Medicine; Referring Provider Family Medicine; Visit Provider Family Medicine
DX: E03.9 Hypothyroidism, unspecified (principal); E11.8 Type 2 diabetes mellitus with unspecified complications
CPT/HCPCS: 36415; 80053; 80061; 83036; 84439; 84443; 85025

== ENCOUNTER 2024-10-17 07:30 | Emergency (ER) | payer MEDICARE, SELFPAY ==
[2024-10-17 07:31] VITALS: BP 166/95; PULSE 88; RESP 20; TEMP 36.5; O2SAT 99; BMI 58.3
--- OUTSIDE RECORDS SUMMARY | 2024-10-17 07:54 | XMS RPT_ITS | CCD ---
Author Organization [facility] Care Team Providers Care Curriculum And Instruction Specialist Name Role Phone Dr. Alison Reyes Primary Care Provider [phone] Dr. Alison Reyes Referring Provider Dr. Selam Manzanares Attending Provider Rodriguez CEJA PA Collins Attending Provider Dr. Arden Oviedo Attending Provider Dr. Alison Reyes Primary Care Provider [phone] Dr. Alison Reyes Referring Provider Rodriguez CEJA PA Collins Attending Provider Dr. Alison Reyes Primary Care Provider [phone] Dr. Alison Reyes Referring Provider Rodriguez CEJA PA Collins Attending Provider OLAYINKA RAMOSN - DIRECTOR OF BRAND MARKETING, DESIRAE Pulliam Primary [facility] Phys [facility] Ni PT, Klarissa Unavailable Unavailable PHYSICIAN, NOT RECORDED Primary Care Physician Dr. Alison Lopes Primary Care Provider [phone] Dr. Alison Reyes Referring Provider Rodriguez CEJA PA Collins Attending Provider [phone] ALISON REYES MD Primary Care Physician Dr. Alison Reyes Primary Care Provider Dr. Alison Reyes Referring Provider MD Kirk Horton Attending Provider Dr. Abner Kelly Attending Provider Dr. Arden Oviedo Attending Provider Dr. Selam Manzanares Attending Provider Referred, Self Referring Provider Unavailable Nurse, Surgery Attending Provider Unavailable PHYSICIAN, NOT RECORDED Primary Care Unavailsuresh CONTE MD, SWAPNIL Snyder Attending Unavailable CHANDLER LAYTON, MARIO Aquino Attending Unavailable ERIC WOODS, ALISON Primary Care Unavailable SKYLER WOODS, JESU Marte Attending Unavail christina REYES MD, ALISON Primary Care Unavailable OLAYINKA RAMOSN - DIRECTOR OF BRAND MARKETING, DESIRAE Pulliam Primary Care U hayder DURAN MD, DR PRABHJOT Quijano Attending Unavailable PHYSICIAN, NOT RECORDED Primary Care Unavailsuresh DAWSON MD, DR NICOLAS Attending Unavailerika e PHYSICIAN, NOT RECORDED Primary Care Unavailsuresh HOLLAND MD, JESU Marte Attending Unavail christina Reyes MD, Dr. Alison Marte Primary Care Provider Dr. Alison Reyes MD Referring Provider [phone] Dr. Selam Manzanares MD Attending Provider Edna Garcia PA-C Attending Provider Dr. Tamy Tanner DO Attending Provider Dr. Tamy Tanner DO Emergency Provider Dr. Alison Reyes MD Attending Provider Dr. Abner Kelly MD Attending Provider Dr. Abner Kelly MD Referring Provider Dr. Alison Reyes MD Primary Care Provider Dr. Alison Reyes MD Referring Provider Radha DUNBARC, Edna Attending Provider Juani Vee Attending Provider Preet WOODS, Dr. Her Attending Provider Radha DUNBARC, Edna Referring Provider TYRELL ESQUEDA DO Attending Unavailable ERIC WOOSD, ALISON Primary Care Unavailable MELO OH DO Attending Unavailable ERIC WOODS, ALISON Primary Care Unavailable Radha FITCH, Edna Attending Provider Radha FITCH, Edna Referring Provider Eric WOODS, Dr. Alison Marte Primary Care Provider Eric WOODS, Dr. Alison Marte Referring Provider Radha FITCH, Edna Attending Provider Eric WOODS, Dr. Alison Marte Attending Provider [phone] Eric WOODS, Dr. Alison Marte Primary Care Provider [phone] Eric WOODS, Dr. Alison Marte Referring Provider Radha FITCH, Edna Attending Provider Eric WOODS, Dr. Alison Marte Primary Care Provider Alison Reyes Referring Unavailable Radha, Edna Attending Unavailable Alison Reyes E Primary Care Unavailable Abner Kelly Attending Unavailable Abner Kelly Referring Unavailable SchAlison ashley Primary Care Unavailable SchAlison ashley E Referring Unavailable Radha, Edna Attending Unavailable Schdion, Alison E Primary Care Unavailable Selam Manzanares Attending Unavailable SchAlison ashley E Referring Unavailable Schdion, Alison E Primary Care Unavailable SchAlison ashley E Attending Unavailable SchAlison ashley E Referring Unavailable Schdion, Alison E Primary Care Unavailable Martha Bateman Attending Unavailable SchAlison ashley E Referring Unavailable SchAlison ashley E Primary Care Unavailable SchAlison ashley E Referring Unavailable Radha, Edna Attending Unavailable SchAlison ashley E Primary Care Unavailable Schdion, Alison E Primary Care Unavailable SchAlison ashley Attending Unavailable SchinAlison antony E Referring Unavailable Garcia, Edna Attending Unavailable Garcia, Edna Referring Unavailable Schinarpan, Alison E Primary Care Unavailable Schinarpan, Alison E Referring Unavailable Garcia, Edna Attending Unavailable Schdion, Alison E Primary Care Unavailable Martha Bateman Attending Unavailable Schdion, Alison E Referring Unavailable Schinner, Alison E Primary Care Unavailable Schinner, Alison E Primary Care Unavailable Schinner, Alison E Referring Unavailable Haresh Bejarano Attending Unavailable Schinner, Alison E Referring Unavailable Schinner, Alison E Primary Care Unavailable Radha, Edna Attending Unavailable Schinner, Alison E Referring Unavailable Schinner, Alison E Primary Care Unavailable Garcia, Edna Attending Unavailable Schinner, Alison E Referring Unavailable Garcia, Edna Attending Unavailable Schinner, Alison E Primary Care Unavailable Juani Turcios Attending Unavailable Schinner, Alison E Referring Unavailable Schinner, Alison E Primary Care Unavailable Schinner, Alison E Referring Unavailable Schinner, Alison E Primary Care Unavailable Garcia, Edna Attending Unavailable Schinner, Alison E Referring Unavailable Garcia, Edna Attending Unavailable Schinner, Alison E Primary Care Unavailable Juani Turcios Attending Unavailable Schinner, Alison E Referring Unavailable Schinner, Alison E Primary Care Unavailable Juani Turcios Attending Unavailable Schinner, Alison E Referring Unavailable Schinner, Alison E Primary Care Unavailable Schinner, Alison E Referring Unavailable Garcia, Edna Attending Unavailable Schinner, Alison E Primary Care Unavailable Selam Manzanares Attending Unavailable Schinner, Alison E Referring Unavailable Schinner, Alison E Primary Care Unavailable Rey Torres Attending Unavailable Schinner, Alison E Primary Care Unavailable Arden Oviedo Attending Unavailable Schinner, Alison E Primary Care Unavailable Schinner, Alison E Attending Unavailable Schinner, Alison E Primary Care Unavailable Schinner, Alison E Referring Unavailable Garcia, Edna Attending Unavailable Schinner, Alison E Primary Care Unavailable Schinner, Alison E Referring Unavailable Garcia, Edna Attending Unavailable Schinner, Alison E Primary Care Unavailable Schinner, Alison E Referring Unavailable Garcia, Edna Attending Unavailable Schinner, Alsion E Primary Care Unavailable Schinner, Alison E Referring Unavailable Garcia, Edna Attending Unavailable Schinner, Alison E Primary Care Unavailable Tamy Tanner Attending Unavailable Schinner, Alison E Primary Care Unavailable Schinner, Alison E Attending Unavailable Schinner, Alison E Referring Unavailable Schinner, Alison E Primary Care Unavailable Allergies Allergy Classification Reported Allergen(s) Allergy Type Date of Onset Reaction(s) Facility (20 sources) Escitalopram; Translations: [escitalopram] Drug Allergy 06-12-2021 Rash [facility] (1 source) Escitalopram Drug Allergy 10-08-2024 [facility] Repository Medications Current Medications Medication Drug Class(es) Dates Sig (Normalized) Sig (Original) sensor 200 actuat albuterol 0.09 mg/actuat dry powder inhaler (10 sources) beta2-Adrenergic Agonist Start: 10-07-2024 take 90 ug by inhalation every four hours Albuterol Sulfate (Proair Digihaler) 90 mcg/actuation aero powdr breath act w/sensor Active 1 NMA INHALATION Q4H October 07, 2024 12:00am Start: 03-03-2019 End: 04-02-2019 take 1 puff(s) by inhalation every four hours ProAir HFA MDI (90 mcg/inh) inhalation aerosol 1 puff(s), Inhalation, q4h, # 1 inhaler, 0 Refill(s), Pharmacy: [address], Bronchitis, acute Start Date: 03/03/19 Stop Date: 04/02/19 Status: Ordered Quantity: 1.0 Unit: inhaler Repeat number: 1 Indications: Acute bronchitis, unspecified; atorvastatin 40 mg oral tablet (10 sources) HMG-CoA Reductase Inhibitor Start: 10-07-2024 take 1 tablet by mouth once daily Atorvastatin (Lipitor) 40 mg tablet Active 40 mg PO daily October 07, 2024 12:00am Start: 01-05-2019 atorvastatin 4 0 mg oral tablet Dose : 40 mg = 1 tab(s), Oral, qDay, # 90 tab(s), 2 Refill(s), Pharmacy: [address] Start Date: 01/05/19 Status: Ordered Quantity: 90.0 Unit: tab(s) Repeat number: 3 cephalexin 500 mg oral capsule (2 sources) Cephalosporin Antibacterial Start: 09-05-2024 End: 09-15-2024 cephalexin 500 mg oral capsule Dose : 500 mg = 1 cap(s), Oral, QID, X 10 day(s), # 40 cap(s), 0 Refill(s), 09/15/24 10:47:00 PM EDT, 177 Start Date: 09/05/24 Stop Date: 09/15/24 Status: Ordered Quantity: 40.0 Unit: cap(s) Repeat number: 1 Start: 05-30-2023 End: 06-06-2023 take 1 tablet by mouth every six hours Keflex use cephalexin Dose : 500 mg =, Oral, q6hr, X 7 day(s), # 28 tab(s), 0 Refill(s), 06/06/23 11:55:00 PM EST, 181.8 Start Date: 05/30/23 Stop Date: 06/06/23 Status: Ordered glimepiride 1 mg oral tablet (10 sources) Sulfonylurea Start: 10-07-2024 take 1 tablet by mouth once daily Glimepiride 1 mg tablet Active 1 mg PO daily October 07, 2024 12:00am Start: 01-05-2019 glimepiride 1 mg oral tablet Dose : 1 mg = 1 tab(s), Oral, qDay, # 90 tab(s), 1 Refill(s), Pharmacy: [address], DM type 2, goal HbA1c Start Date: 01/05/19 Status: Ordered Quantity: 90.0 Unit: tab(s) Repeat number: 2 Indications: Type 2 diabetes mellitus without complications; 3 ml insulin detemir 100 unt/ml pen injector (10 sources) Insulin Analog Start: 10-07-2024 Insulin Detemi r U-100 100 unit/mL (3 mL) insulin pen Active 30 U SC AT BEDTIME October 07, 2024 12:00am Start: 04-06-2019 End: 11-02-2019 Levemir FlexTouch 100 units/ mL 3 mL Pen Dose : 30 unit(s) = 0.3 mL, Subcutaneous, qHS, rotate injection sites, # 9 mL, 6 Refill(s), Pharmacy: [address], DM type 2, goal HbA1c Start Date: 04/06/19 Stop Date: 11/02/19 Status: Ordered Quantity: 9.0 Unit: mL Repeat number: 7 Indications: Type 2 diabetes mellitus without complications; levothyroxine sodium 0.3 mg oral tablet (20 sources) l-Thyroxine Start: 03-09-2024 take 1 tablet by mouth once daily Levothyroxine 300 mcg tablet Active 300 ug PO daily March 09, 2024 1:00am Start: 11-24-2020 End: 03-09-2024 take 1 tablet by mouth once daily Levothyroxine 50 mcg tablet Discontinued 50 ug PO DAILY November 24, 2020 2:07pm March 09, 2024 4:35pm Start: 11-22-2020 End: 11-24-2020 Levothyroxine 50 mcg tablet Discontinued 75 ug PO DAILY November 22, 2020 2:28pm November 24, 2020 2:08pm Start: 11-22-2020 End: 11-24-2020 take 75 ug by mouth once daily Levothyroxine Discontin ued 75 MCG PO DAILY November 22, 2020 2:28pm November 24, 2020 2:08pm Start: 07-25-2020 End: 10-07-2024 take 1 tablet by mouth once daily Levothyroxine 200 MCG tablet Discontinued 200 ug PO DAILY July 25, 2020 12:00am October 07, 2024 7:13pm Start: 07-25-2020 End: 11-22-2020 take 1 tablet by mouth once daily Levothyroxine 50 MCG tablet Discontinued 50 ug PO DAILY July 25, 2020 12:00am November 22, 2020 2:29pm Start: 01-05-2019 levothyroxine 300 mcg (0.3 mg) oral tablet Dose : 300 mcg = 1 tab(s), Oral, qDay, # 90 tab(s), 3 Refill(s), Pharmacy: [id number] [place] [address] Start Date: 01/05/19 Status: Ordered Quantity: 90.0 Unit: tab(s) Repeat number: 4 metFORMIN hydrochloride 500 mg oral tablet (20 sources) Biguanide Start: 07-25-2020 take 2 tablets by mouth twice daily Metformin 500 MG tablet Active 1000 mg PO TWICE A DAY July 25, 2020 12:00am Start: 07-25-2020 take 1000 mg by mout h twice daily Metformin Active 1000 MG PO TWICE A DAY July 25, 2020 12:00am Start: 01-05-2019 metFORMIN 500 mg oral tablet, extended release Dose : 1,000 mg = 2 tab(s), Oral, BID, # 360 tab(s), 2 Refill(s), Pharmacy: [id number] [place] [address] Start Date: 01/05/19 Status: Ordered Quantity: 360.0 Unit: tab(s) Repeat number: 3 24 hr metoprolol succinate 100 mg extended release oral tablet (20 sources) beta-Adrenergic Naeem Start: 10-07-2024 take 1 tablet by mouth once daily Metoprolol Succinate 100 mg tablet extended release 24 hr Active 100 mg PO daily October 07, 2024 12:00am Start: 05-21-2024 End: 10-07-2024 take 1 tablet by mouth once daily Metoprolol Succinate 50 mg tablet extended release 24 hr Discontinued 50 mg PO DAILY May 21, 2024 9:35am October 07, 2024 7:12pm Start: 03-09-2024 End: 05-21-2024 take 2 tablets by mouth once daily Metoprolol Succinate 50 mg tablet extended release 24 hr Discontinued 25 mg PO .COMPLEX March 09, 2024 4:38pm May 21, 2024 9:35am daily Start: 11-24-2020 End: 03-09-2024 take 1 tablet by mouth once daily Metoprolol Succinate 50 mg tablet extended release 24 hr Discontinued 50 mg PO .COMPLEX February 18, 2024 12:00am March 09, 2024 4:41pm 50 mg orally Daily: additional refills will be given after office visit; Start: 09-27-2020 End: 11-24-2020 take 1 tablet by mouth once daily Metoprolol Succinate 25 mg tablet extended release 24 hr Discontinued 25 mg PO DAILY September 27, 2020 12:00am November 24, 2020 3:13pm Start: 01-05-2019 Metoprolol Suc cinate ER 100 mg oral tablet, extended release Dose : 100 mg = 1 tab(s), Oral, qDay, # 90 tab(s), 2 Refill(s), Pharmacy: [address] Start Date: 01/05/19 Status: Ordered Quantity: 90.0 Unit: tab(s) Repeat number: 3 Multivitamin Capsule (10 sources) Start: 09-27-2020 Multivitamin C apsule Active 1 NMA DAILY September 27, 2020 12:00am Multivitamin preparation (10 sources) Start: 09-27-2020 Multivitamin A ctive 1 CAP DAILY September 27, 2020 7:47pm Start: 09-27-2020 Multivitamin A ctive 1 CAP DAILY September 26, 2020 11:00pm Start: 09-27-2020 Multivitamin A ctive 1 CAP DAILY September 27, 2020 12:00am ondansetron 8 mg oral tablet (1 source) Serotonin-3 Receptor Antagonist Start: 01-05-2023 End: 09-21-2023 Zofran 8 mg oral tablet Dose : 8 mg = 1 tab(s), Oral, TID, X 5 day(s), # 15 tab(s), 0 Refill(s), 01/10/23 2:46:00 AM EDT Start Date: 01/05/23 Stop Date: 01/10/23 Status: Ordered PARoxetine hydrochloride 40 mg oral tablet (20 sources) Serotonin Reuptake Inhibitor Start: 01-05-2019 take 1 tablet by mouth once daily Paroxetine Hcl 40 MG tablet Active 40 mg PO DAILY July 25, 2020 12:00am Pen needles 4 mm (8 sources) Start: 04-06-2019 Pen needles 4 mm See Instructions, Si pen needle daily Dispense: 1 box monthly RF: 12, # 30 EA, 12 Refill(s), Pharmacy: [address], DM type 2, goal HbA1c Start Date: 04/06/19 Status: Ordered Quantity: 30.0 Unit: EA Repeat number: 13 Indications: Type 2 diabetes mellitus without complications; Start: 04-06-2019 Pen needles 4 mm See Instructions, Si pen needle daily Dispense: 1 box monthly RF: 12, # 30 EA, 12 Refill(s), Pharmacy: [address], DM type 2, goal HbA1c Start Date: 04/06/19 Status: Ordered Quantity: 30.0 Unit: EA Repeat number: 13 Indication: Type 2 diabetes mellitus without complications Start: 04-06-2019 Pen needles 4 mm See Instructions, Si pen needle daily Dispense: 1 box monthly RF: 12, # 30 EA, 12 Refill(s), Pharmacy: [address], DM type 2, goal HbA1c Start Date: 04/06/19 Status: Ordered Completed/Discontinued Medications Medication Drug Class(es) Dates Sig (Normalized) Sig (Original) acetaminophen 325 mg / HYDROcodone bitartrate 5 mg oral tablet (20 sources) Opioid Agonist Start: 03-18-2018 End: 03-21-2018 Hydrocodone-Acetami nophen 1 TABLET tablet Discontinued 1 {tbl} PO EVERY 6 HOURS NEEDED as needed for Pain 10 3 March 18, 2018 1:00am March 20, 2018 1:00am March 21, 2018 1:17am Start: 03-18-2018 End: 03-21-2018 take 1 tablet by mouth every six hours as needed Hydrocodone-Acetaminophen Discontinued 1 TABLET PO EVERY 6 HOURS NEEDED 10 March 18, 2018 1:00am March 21, 2018 1:17am amLODIPine 10 mg oral tablet (10 sources) Dihydropyridine Calcium Channel Naeem Start: 03-09-2024 End: 10-07-2024 take 1 tablet by mouth once daily Amlodipine 10 mg tablet Discontinued 10 mg PO daily March 09, 2024 1:00am October 07, 2024 7:13pm aspirin 81 mg delayed release oral tablet (20 sources) Platelet Aggregation Inhibitor, Nonsteroidal Anti-inflammatory Drug Start: 09-27-2020 End: 10-07-2024 take 1 tablet by mouth once daily Aspirin (Aspir-81) 81 mg Tablet,Delayed Release (Dr/Ec) Discontinued 81 mg PO DAILY September 27, 2020 12:00am October 07, 2024 7:14pm Start: 11-16-2006 take 1 dose by mouth once mary y aspirin Dose : 81 mg =, PO, Daily, 0 Refill(s), current med () Start Date: 11/16/06 Status: Ordered Repeat number: 1 busPIRone hydrochloride 10 mg oral tablet (20 sources) Start: 01-05-2019 take 1 tablet by mouth twice daily Buspirone 10 mg tablet Active 10 mg PO TWICE A DAY March 09, 2024 1:00am Start: 01-05-2019 End: 11-22-2020 take 1 tablet by mouth three times daily Buspirone 10 MG tablet Discontinued 10 mg PO THREE TIMES A DAY July 25, 2020 12:00am November 22, 2020 2:26pm cefdinir 300 mg oral capsule (11 sources) Cephalosporin Antibacterial Start: 06-13-2023 End: 06-20-2023 take 1 capsule by mouth twice daily Cefdinir 300 mg capsule Discontinued 300 mg PO TWICE A DAY June 13, 2023 1:00am June 20, 2023 3:41pm celecoxib 200 mg oral capsule (14 sources) Nonsteroidal Anti-inflammatory Drug Start: 01-03-2023 End: 09-02-2024 take 1 capsule by mouth twice daily Celecoxib (Celebrex) 200 mg capsule Discontinued 200 mg PO TWICE A DAY January 03, 2023 12:00am September 02, 2024 8:01am Start: 01-24-2022 take 1 capsule by mo [facility] twice daily Celecoxib (Celebrex) 200 mg capsule Active 200 MG PO TWICE A DAY January 24, 2022 12:00am doxycycline hyclate 100 mg oral tablet (20 sources) Tetracycline-class Drug Start: 09-24-2024 End: 10-04-2024 take 1 tablet by mouth twice daily Doxycycline Hyclate 100 mg tablet Discontinued 100 mg PO TWICE A DAY 08 02September 24, 2024 3:03pm October 03, 2024 12:00am October 04, 2024 12:08am Start: 09-03-2024 End: 09-17-2024 take 1 tablet by mouth twice daily Doxycycline Hyclate 100 mg tablet Discontinued 100 mg PO TWICE A DAY September 03, 2024 2:40pm September 16, 2024 12:00am September 17, 2024 12:08am Start: 07-28-2024 End: 08-04-2024 take 1 tablet by mouth twice daily Doxycycline Hyclate 100 mg tablet Discontinued 100 mg PO TWICE A DAY 02 11July 28, 2024 2:09pm August 03, 2024 12:00am August 04, 2024 12:07am Start: 06-05-2024 End: 06-15-2024 take 1 tablet by mouth twice daily Doxycycline Hyclate 100 mg tablet Discontinued 100 mg PO TWICE A DAY 08 02June 05, 2024 1:00am June 14, 2024 1:00am June 15, 2024 1:12am Start: 03-17-2024 End: 06-05-2024 take 1 capsule by mouth twice daily Doxycycline Hyclate 100 mg capsule Discontinued 100 mg PO TWICE A DAY April 21, 2024 8:33am June 05, 2024 3:05pm Start: 01-31-2024 End: 02-12-2024 take 1 capsule by mouth twice daily Doxycycline Monohydrate 100 mg capsule Discontinued 100 mg PO TWICE A DAY January 31, 2024 12:00am February 12, 2024 2:17pm Start: 06-28-2023 End: 02-24-2024 take 1 capsule by mouth twice daily Doxycycline Hyclate 100 mg capsule Discontinued 100 mg PO TWICE A DAY October 08, 2023 3:55pm October 22, 2023 2:20pm Start: 06-20-2023 End: 06-25-2023 take 1 tablet by mouth twice daily Doxycycline Hyclate 100 mg tablet Discontinued 100 mg PO TWICE A DAY 01 24June 20, 2023 1:00am June 24, 2023 1:00am June 25, 2023 1:04am Start: 05-06-2023 End: 06-13-2023 take 1 capsule by mouth twice daily Doxycycline Hyclate 100 mg capsule Discontinued 100 mg PO TWICE A DAY May 06, 2023 1:00am June 13, 2023 9:53am Start: 01-02-2022 take 100 mg by mouth twice daily Doxycycline Hyclate Active 100 MG PO TWICE A DAY January 02, 2022 12:00am etodolac 300 mg oral capsule (20 sources) Nonsteroidal Anti-inflammatory Drug Start: 08-01-2022 End: 01-03-2023 take 1 capsule by mouth every eight hours as needed for pain Etodolac 300 mg capsule Discontinued 300 mg PO Q8H as needed for pain October 31, 2022 3:49pm January 03, 2023 2:57pm stop ALL other NSAIDS. Drink plenty of water 2 ml sodium hyaluronate 15 mg/ml prefilled syringe (14 sources) Start: 09-14-2022 End: 10-05-2022 Sodium Hyaluronate (Viscosup) (Orthovisc) 30 mg/2 mL syringe Discontinued 30 mg INTRAARTIC EVERY WEEK 6 September 14, 2022 12:00am October 04, 2022 12:00am October 05, 2022 12:05am Injection 30mg/2ml into the right knee once weekly for 3 weeks. 1.5 ml insulin glargine 300 unt/ml pen injector (20 sources) Insulin Analog Start: 11-24-2020 End: 03-09-2024 Insulin Glargine U-300 Conc 300 unit/mL (1.5 mL) insulin pen Discontinued 46 U SC DAILY November 24, 2020 2:07pm March 09, 2024 4:38pm Start: 11-22-2020 End: 11-24-2020 Insulin Glargine U-300 Conc 300 unit/mL (1.5 mL) insulin pen Discontinued 42 U SC DAILY November 22, 2020 2:27pm November 24, 2020 2:08pm Start: 07-25-2020 End: 11-22-2020 Insulin Glargine U-300 Conc 300 UNIT/ML insulin pen Discontinued 38 U SQ DAILY July 25, 2020 12:00am November 22, 2020 2:29pm Insulin Glargine U-300 Conc (Toujeo Max U-300 Solostar) 300 unit/mL (3 mL) insulin pen (10 sources) Start: 03-09-2024 End: 10-07-2024 Insulin Glargine U-300 Conc (Toujeo Max U-300 Solostar) 300 unit/mL (3 mL) insulin pen Discontinued 46 U SC daily March 09, 2024 1:00am October 07, 2024 7:13pm Start: 03-09-2024 Insulin Glargi ne U-300 Conc (Toujeo Max U-300 Solostar) 300 unit/mL (3 mL) insulin pen Active 46 U SC daily March 09, 2024 1:00am lisinopril 20 mg oral tablet (20 sources) Angiotensin Converting Enzyme Inhibitor Start: 03-09-2024 End: 10-07-2024 take 2 tablets by mouth once daily Lisinopril 20 mg tablet Discontinued 40 mg PO DAILY March 09, 2024 4:37pm October 07, 2024 7:13pm Start: 11-22-2020 End: 03-09-2024 take 1 tablet by mouth once daily Lisinopril 20 mg tablet Discontinued 20 mg PO DAILY November 22, 2020 12:00am March 09, 2024 4:41pm Start: 07-25-2020 End: 11-22-2020 take 4 tablets by mouth once daily Lisinopril 5 MG tablet Discontinued 20 mg PO DAILY July 25, 2020 12:00am November 22, 2020 2:27pm Start: 07-25-2020 End: 11-22-2020 take 20 mg by mouth once daily Lisinopril Discontinued 20 MG PO DAILY July 25, 2020 12:00am November 22, 2020 2:27pm melatonin 10 mg oral tablet (20 sources) Start: 11-24-2020 End: 03-09-2024 take 5 mg by mouth at bedtime Melatonin 10 mg tablet Discontinued 5 mg PO AT BEDTIME November 24, 2020 2:06pm March 09, 2024 4:40pm Start: 11-24-2020 take 5 mg by mouth at bedtime Melatonin Active 5 MG PO AT BEDTIME November 24, 2020 2:06pm Start: 09-27-2020 End: 11-24-2020 take 1 tablet by mouth at bedtime Melatonin 10 mg Tablet Discontinued 10 mg PO AT BEDTIME September 27, 2020 12:00am November 24, 2020 2:08pm meloxicam 15 mg oral tablet (14 sources) Nonsteroidal Anti-inflammatory Drug Start: 07-20-2022 End: 08-01-2022 take 1 tablet by mouth once daily Meloxicam 15 mg tablet Discontinued 15 mg PO DAILY July 20, 2022 12:00am August 02, 2022 12:00am August 01, 2022 3:10pm Do not take in conjucntion with other NSAIDs. Tylenol is okay. Mupirocin (11 sources) RNA Synthetase Inhibitor Antibacterial Start: 06-13-2023 End: 03-09-2024 Mupirocin 2 % ointment Discontinued 1 NMA TOPICAL TWICE A DAY June 13, 2023 1:00am March 09, 2024 4:40pm Apply to bilateral nares twice daily x 1 week Start: 06-13-2023 Mupirocin Acti ve 1 APPLIC TOPICAL TWICE A DAY June 13, 2023 1:00am Apply to bilateral nares twice daily x 1 week naproxen 500 mg oral tablet (12 sources) Nonsteroidal Anti-inflammatory Drug Start: 04-18-2023 End: 05-18-2023 take 1 tablet by mouth twice daily as needed for pain Naproxen 500 mg tablet Discontinued 500 mg PO TWICE A DAY as needed for pain 60 April 18, 2023 1:00am May 17, 2023 1:00am May 18, 2023 1:48am Start: 01-05-2023 End: 01-12-2023 naproxen 500 mg oral tablet Dose : 500 mg = 1 tab(s), Oral, BID, X 7 day(s), # 14 tab(s), 0 Refill(s), 01/12/23 2:46:00 AM EDT Start Date: 01/05/23 Stop Date: 01/12/23 Status: Ordered Nirmatrelvir-Ritonavir (13 sources) Start: 02-05-2023 End: 03-09-2024 Nirmatrelvir-Ritonavir (Paxl ovid) 300 mg (150 mg x 2)-100 mg tablets,dose pack Discontinued 0 PO .COMPLEX February 05, 2023 12:00am March 09, 2024 4:41pm take TWO 150 mg tablets of nirmatrelvir with ONE 100 mg tablet of ritonavir twice daily for 5 days Start: 02-05-2023 Nirmatrelvir-R itonavir (Paxlovid) 300 mg (150 mg x 2)-100 mg tablets,dose pack Active 0 PO .COMPLEX February 04, 2023 11:00pm take TWO 150 mg tablets of nirmatrelvir with ONE 100 mg tablet of ritonavir twice daily for 5 days Start: 02-05-2023 Nirmatrelvir-R itonavir (Paxlovid) 300 mg (150 mg x 2)-100 mg tablets,dose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 Comment on above: Order Comment: Order Date: 06/24/24Order Info: [id number] - CMPOrder Info: [id number] - LIPIDOrder Info: [id number] - TSHOrder Info: [id number] - T4F Performed By: #### L 506.0400, L500.4100, L500.4050, L501.9985, L100.0100, L501.9520 ####[facility] [address] [place], [address] Potassium [Moles/Vol] 4.4 mmol/L Normal 3.3-5.1 [facility] Comment on above: Order Comment: Order Date: 06/24/24Order Info: [id number]- - CMPOrder Info: - LIPIDOrder Info: [id number] - TSHOrder Info: 7 - T4F Performed By: #### L 506.0400, L500.4100, L500.4050, L501.9985, L100.0100, L501.9520 ####[facility] [address] [place], [address] Sodium [Moles/Vol] 140 mmol/L Normal 133-145 [facility] Comment on above: Order Comment: Order Date: 06/24/24Order Info: 07- - CMPOrder Info: - LIPIDOrder Info: [id number] - TSHOrder Info: [id number] - T4F Performed By: #### L 506.0400, L500.4100, L500.4050, L501.9985, L100.0100, L501.9520 ####[facility] [address] [place], [address] T PROT 6.9 g/dL Normal 5.9-8.4 [facility] Comment on above: Order Comment: Order Date: 06/24/24Order Info: 07- - CMPOrder Info: [id number] - LIPIDOrder Info: [id number] - TSHOrder Info: [id number] - T4F Performed By: #### L 506.0400, L500.4100, L500.4050, L501.9985, L100.0100, L501.9520 ####[facility] [address] [place], [address] Urea nitrogen [Mass/Vol] 13 mg/dL Normal 4-19 [facility] Comment on above: Order Comment: Order Date: 06/24/24Order Info: [id number] - CMPOrder Info: [id number] - LIPIDOrder Info: [id number] - TSHOrder Info: [id number] - T4F Performed By: #### L 506.0400, L500.4100, L500.4050, L501.9985, L100.0100, L501.9520 ####[facility] [address] [place], [address] Eosinophil percentageOrdered By: Alison Reyes on 10-06-2024 Eosinophils/100 WBC (Bld) 3.2 % 0-5 [facility] Erythrocyte distribution wid th ratioOrdered By: Alison Reyes on 10-06-2024 Erythrocyte distribution width (RBC) [Ratio] 12.4 % 11.6-14.6 [facility] Erythrocyte distribution wid th standard deviationOrdered By: Alison Reyes on 10-06-2024 Erythrocyte distribution width (RBC) [Ratio] 41.7 fl 35.1-43.9 [facility] Glomerular filtration rate ( GFR) estimation/1.73 sq m using serum, plasma, or whole bOrdered By: Alison Reyes on 10-06-2024 GFR/1.73 sq M.predicted among non-blacks MDRD (S/P/Bld) [Vol rate/Area] 103 mL/min/{1.73_m2} >60 [facility] Comment on above: mL/min/1.73m2 CKD-EP I Creatinine Equation (2020) Hematocrit Auto (Bld) [Volum e fraction]Ordered By: Alison Reyes on 10-06-2024 Hematocrit (Bld) [Volume fraction] 42.9 % 40-54 [facility] Hemoglobin A1con 10-06-2024 HbA1c (Bld) [Mass fraction] 6.2 % High <=5.6 [facility] Comment on above: Order Comment: Order Date: 06/24/24Order Info: [id number] - A1C Result Comment: Norm al < 5.7 % Prediabetic 5.7 - 6.4 % Diabetic >or= 6.5 % Please note range changes. Performed By: #### L 506.0400, L500.4100, L500.4050, L501.9985, L100.0100, L501.9520 ####[facility] [address] [place], [address] Hemoglobin A1c percentageOrd ered By: Alison Reyes on 10-06-2024 HbA1c (Bld) [Mass fraction] 6.2 % High <5.7 [facility] Comment on above: Normal < 5.7 % Predi abetic 5.7 - 6.4 % Diabetic >or= 6.5 % Please note range changes. Hemoglobin measurementOrdere d By: Alisno Reyes on 10-06-2024 Hemoglobin (Bld) [Mass/Vol] 14.2 g/dL 13.0-16.5 [facility] Immature granulocytes/100 WB C Auto (Bld)Ordered By: Alison Reyes on 10-06-2024 Immature granulocytes/100 WBC (Bld) 0.200 % 0.0-0.9 [facility] Comment on above: IG% - Immature Granu locytes (promyelocytes, myelocytes and metamyelocytes) > 1% indicates that a LEFT SHIFT is Present. LDL calc ser/plasOrdered By: Alison Reyes on 10-06-2024 Cholesterol in LDL [Mass/Vol] 52 mg/dL [facility] Comment on above: Csobcejtff=953-771 m g/dL & Higher Yfix=272 mg/dL or greater Laboratory - Chemistry and C hemistry - challengeOrdered By: Alison Reyes on 10-06-2024 AST [Catalytic activity/Vol] 25 U/L <38 [facility] Lipid Profileon 10-06-2024 CHOL:HDL 2.86 Normal [facility] Comment on above: Order Comment: Order Date: 06/24/24Order Info: [id number] - CMPOrder Info: [id number] - LIPIDOrder Info: [id number] - TSHOrder Info: [id number] - T4F Performed By: #### L 506.0400, L500.4100, L500.4050, L501.9985, L100.0100, L501.9520 ####[facility] [address] [place], [address] Cholesterol [Mass/Vol] 128 mg/dL Normal <=200 [facility] Comment on above: Order Comment: Order Date: 06/24/24Order Info: [id number] - CMPOrder Info: [id number] - LIPIDOrder Info: [id number] - TSHOrder Info: [id number] T4F Result Comment: Chol esterol level, Desirable <200 mg/dL Borderline high cholesterol 200-239 mg/dL High cholesterol >=240 mg/dL Recommendations of the NCEP Adult Treatment Panel for the following risk-cutoff thresholds for the [place] population. Performed By: #### L 506.0400, L500.4100, L500.4050, L501.9985, L100.0100, L501.9520 ####[facility] [address] [place], [address] Cholesterol in HDL [Mass/Vol] 45 mg/dL Normal [facility] Comment on above: Order Comment: Order Date: 06/24/24Order Info: [id number] - CMPOrder Info: [id number] - LIPIDOrder Info: [id number] - TSHOrder Info: [id number] T4F Result Comment: Elaina onal Cholesterol Education Program (NCEP) guidelines: <40 mg/dL: Low HDL-cholesterol (major risk factor for CHD) >= 60 mg/dL: High HDL-cholesterol (negative risk factor for CHD) HDL-cholesterol is affected by a number of factors, e.g. smoking, exercise, hormones, sex and age. Performed By: #### L 506.0400, L500.4100, L500.4050, L501.9985, L100.0100, L501.9520 ####[facility] [address] [place], [address] Cholesterol in LDL [Mass/Vol] 52 mg/dL Normal [facility] Comment on above: Order Comment: Order Date: 06/24/24Order Info: [id number] - CMPOrder Info: [id number] - LIPIDOrder Info: 3 - TSHOrder Info: [id number] - T4F Result Comment: Bord fufwvw=251-625 mg/dL Higher Qfus=332 mg/dL or greater Performed By: #### L 506.0400, L500.4100, L500.4050, L501.9985, L100.0100, L501.9520 ####[facility] [address] [place], [address] Cholesterol in VLDL [Mass/Vol] 31 mg/dL Normal 5-40 [facility] Comment on above: Order Comment: Order Date: 06/24/24Order Info: [id number]- - CMPOrder Info: - LIPIDOrder Info: [id number] - TSHOrder Info: [id number] - T4F Performed By: #### L 506.0400, L500.4100, L500.4050, L501.9985, L100.0100, L501.9520 ####[facility] [address] [place], [place], [id number] Triglyceride [Mass/Vol] 154 mg/dL Normal [facility] Comment on above: Order Comment: Order Date: 06/24/24Order Info: [id number]- - CMPOrder Info: - LIPIDOrder Info: [id number] - TSHOrder Info: [id number] - T4F Result Comment: The drugs N-Acetylcysteine and Metamizole may falsely depress this assay. Normal range: <150 mg/dL Borderline High: 150-199 mg/dL High: 200-499 mg/dL Very High: >500 mg/dL Performed By: #### L 506.0400, L500.4100, L500.4050, L501.9985, L100.0100, L501.9520 ####[facility] [address] [place], [address] MCV (mean corpuscular volume ) determinationOrdered By: Alison Reyes on 10-06-2024 MCV (RBC) [Entitic vol] 91.5 fL 80-94 [facility] Mean corpuscular hemoglobin (MCH) determinationOrdered By: Alison Reyes on 10-06-2024 MCH (RBC) [Entitic mass] 30.3 pg 27.0-32.0 [facility] Mean corpuscular hemoglobin concentration (MCHC) determinationOrdered By: Alison Reyes on 10-06-2024 MCHC (RBC) [Mass/Vol] 33.1 g/dL 32-36 [facility] Mean platelet volume determi nationOrdered By: Alison Reyes on 10-06-2024 Platelet mean volume (Bld) [Entitic vol] 11.4 fL 6.2-12.0 [facility] Monocyte percentageOrdered B y: Alison Reyes on 10-06-2024 Monocytes/100 WBC (Bld) 7.8 % 0-10 [facility] Neutrophil percentageOrdered By: Alison Reyes on 10-06-2024 Neutrophils/100 WBC (Bld) 60.8 % 47-70 [facility] Nucleated red blood cell per centageOrdered By: Alison Reyes on 10-06-2024 Nucleated RBC/100 WBC (Bld) [Ratio] 0 % 0-5 [facility] Platelet countOrdered By: Sarah Reyes on 10-06-2024 Platelets (Bld) [#/Vol] 280 10*3/uL 150-450 [facility] Potassium measurement (mass/ volume)Ordered By: Alison Reyes on 10-06-2024 Potassium (Unsp spec) [Mass/Vol] 4.4 mmol/L 3.3-5.1 [facility] RBC Auto (Bld) [#/Vol]Ordere d By: Alison Reyes on 10-06-2024 RBC (Bld) [#/Vol] 4.69 10*6/uL 4.6-6.2 [facility] Screening total cholesterol/ high density lipoprotein (HDL) cholesterol ratioOrdered By: Alison Reyes on 10-06-2024 Cholesterol.total/Rosanne sterol in HDL [Mass ratio] 2.86 {ratio} [facility] Serum creatinine measurement (mass/volume)Ordered By: Alison Reyes on 10-06-2024 Creatinine [Mass/Vol] 0.81 mg/dL 0.70-1.20 [facility] Serum globulin measurementOr dered By: Alison Reyes on 10-06-2024 Globulin (S) [Mass/Vol] 3.0 g/dL 2.2-4.2 [facility] Serum glucose measurement (m ass/volume)Ordered By: Alison Reyes on 10-06-2024 Glucose [Mass/Vol] 109 mg/dL High 70-99 [facility] Serum or plasma alanine hitchcock otransferase (ALT) measurementOrdered By: Alison Reyes on 10-06-2024 ALT [Catalytic activity/Vol] 24 U/L <47 [facility] Serum or plasma albumin carmelita urement (mass/volume)Ordered By: Alison Reyes on 10-06-2024 Albumin [Mass/Vol] 3.9 g/dL 3.5-5.0 [facility] Serum or plasma albumin/glob ulin mass ratioOrdered By: Alison Reyes on 10-06-2024 Albumin/Globulin [Mass ratio] 1.3 {ratio} 0.9-2.4 [facility] Serum or plasma alkaline regan sphatase measurementOrdered By: Alison Reyes on 10-06-2024 ALP [Catalytic activity/Vol] 112 U/L 40-129 [facility] Serum or plasma calcium carmelita urement (mass/volume)Ordered By: Alison Reyes on 10-06-2024 Calcium [Mass/Vol] 9.5 mg/dL 7.6-11.0 [facility] Serum or plasma cholesterol in HDL measurement (mass/volume)Ordered By: Alison Reyes on 10-06-2024 Cholesterol in HDL [Mass/Vol] 45 mg/dL >40 [facility] Comment on above: National Cholesterol Education Program (NCEP) guidelines:<40 mg/dL: Low HDL-cholesterol (major risk factor for CHD)>= 60 mg/dL: High HDL-cholesterol (negative risk factor for CHD)HDL-cholesterol is affected by a number of factors, e.g. smoking, exercise, hormones, sex and age. Serum or plasma cholesterol measurement (mass/volume)Ordered By: Alison Reyes on 10-06-2024 Cholesterol [Mass/Vol] 128 mg/dL <201 [facility] Comment on above: Cholesterol level, D esirable <200 mg/dLBorderline high cholesterol 200-239 mg/dLHigh cholesterol >=240 mg/dLRecommendations of the NCEP Adult Treatment Panel for the following risk-cutoff thresholds for the [place] population. Serum or plasma urea nitroge n measurement (mass/volume)Ordered By: Alison Reyes on 10-06-2024 Urea nitrogen [Mass/Vol] 13 mg/dL 4-19 [facility] Sodium levelOrdered By: Alison Reyes on 10-06-2024 Sodium [Moles/Vol] 140 mmol/L 133-145 [facility] T4 Free Directon 10-06-2024 T4 FREE DIRECT 1.80 ng/dL High 0.76-1.46 [facility] Comment on above: Order Comment: Order Date: 06/24/24Order Info: [id number] - CMPOrder Info: [id number] - LIPIDOrder Info: [id number] - TSHOrder Info: [id number] - T4F Performed By: #### L 506.0400, L500.4100, L500.4050, L501.9985, L100.0100, L501.9520 ####[facility] [address] [place], [address] T4 freeOrdered By: Alison pitts on 10-06-2024 Free T4 [Mass/Vol] 1.80 ng/dL High 0.76-1.46 [facility] TSH DL <= 0.005 mIU/L QnOrde red By: Alison Reyes on 10-06-2024 TSH Qn 0.025 uIU/mL Low 0.300-4.200 [facility] Thyroid Stim Hormone (TSH)on 10-06-2024 TSH 0.025 uIU/mL Low 0.300-4.200 [facility] Comment on above: Order Comment: Order Date: 06/24/24Order Info: [id number] - CMPOrder Info: [id number] - LIPIDOrder Info: [id number] - TSHOrder Info: [id number] - T4F Performed By: #### L 506.0400, L500.4100, L500.4050, L501.9985, L100.0100, L501.9520 ####[facility] [address] [place], [address] Total proteinOrdered By: Tim Reyes on 10-06-2024 Protein [Mass/Vol] 6.9 g/dL 5.9-8.4 [facility] Triglycerides measurementOrd ered By: Alison Reyes on 10-06-2024 Triglyceride [Mass/Vol] 154 mg/dL <199 [facility] Comment on above: The drugs N-Acetylcy steine and Metamizole may falsely depress this assay. Normal range: <150 mg/dLBorderline High: 150-199 mg/dLHigh: 200-499 mg/dLVery High: >500 mg/dL White blood cell (WBC) count Ordered By: Alison Reyes on 10-06-2024 WBC (Bld) [#/Vol] 8.3 10*3/uL 4.4-11.0 [facility] Orthopedic Visit Reporton Orthopedic Visit Report [facility] [address] [place] [id number] OFFICE VISIT Date of Service: 09/24/24 MR#: [id number] Acct: [id number] Name: OK GOMEZ Suresh Rep #: [id number] : 1965 Provider: DARNELL blake Age/Sex: 59/M Location: [facility] [place] Status: Signed Intake Vital Signs 09/02/24 08:59 09/24/24 09:30 Height 5 ft 9 in 5 ft 9 in Weight: 290 lb BMI 42.8 Intake Visit Reasons: BILATERAL KNEES Chief Complaint: 1st Gelsysn Bilateral kne injection Accompanied by: Self Is patient in pain?: No Allergies escitalopram (From Lexapro) Adverse Reaction (Verified 09/24/24 11:17) Rash Medications ???Medication ???Instructions ???Recorded ???Confirmed ???Type levothyroxine 200 mcg tablet 200 mcg PO DAILY 07/25/20 09/24/24 History metformin 500 mg tablet 1,000 mg PO BID 07/25/20 09/24/24 History paroxetine HCl 40 mg tablet 40 mg PO DAILY 07/25/20 09/24/24 H istory rosuvastatin 40 mg tablet 40 mg PO QHS 07/25/20 09/24/24 His tory aspirin 81 mg tablet,delayed 81 mg PO DAILY 09/27/20 09/24/24 H istory release multivitamin 1 cap DAILY 09/27/20 09/24/24 Hist ory amlodipine 10 mg tablet 10 mg PO QDAY 03/09/24 09/24/24 Hi story buspirone 10 mg tablet 10 mg PO BID 03/09/24 09/24/24 His tory insulin glargine U-300 conc 300 46 unit subcut QDAY 03/09/2409/24 History unit/mL (3 mL) subcutaneous pen ([employer] Max U-300 SoloStar) levothyroxine 300 mcg tablet 300 mcg PO QDAY 03/09/24 09/24/24 History lisinopril 20 mg tablet 40 mg PO DAILY 03/09/24 09/24/24 H istory semaglutide 0.25 mg or 0.5 mg (2 2 mg subcut QWEEK 03/09/24 5 History mg/1.5 mL) subcutaneous pen injector (Ozempic) trazodone 100 mg tablet 100 mg PO QDAY 03/09/24 09/24/24 H istory metoprolol succinate 50 mg 50 mg PO DAILY #90 TABLETS 5 09/24/24 Rx tablet,extended release 24 hr Have you fallen in the past year?: No PFSH Medical History Healing wound Wound, open, buttock Morbid obesity Hyperlipidemia Supraventricular tachycardia Abscess of head Lumbar radiculopathy Low back pain Osteoarthritis of right knee Right knee pain MRSA (methicillin resistant staph aureus) culture positive Abscess of left thigh Abscess COVID-19 SVT (supraventricular tachycardia) Type 2 diabetes mellitus Anxiety and depression RANCHO on CPAP Essential hypertension Anxiety Diabetes Hypothyroidism Surgical History History of hip surgery Family History Father Hypertension Mother Myocardial infarction Diabetes Hypertension Sister Diabetes Social History household members: none Smoking Status: Never smoker alcohol intake: never substance use type: does not use caffeine: Yes Type: carbonated beverages Number of servings: 1 and tea Number of servings: 3 HPI BILATERAL KNEES Details: This documentation accurately reflects the service provided and the decisions made by me, Juani Turcios, PREETHI-C 09/24/24928. Part of today???s visit was documented by Kendy Ferris MA, acting as scribe. OK GOMEZ is a 59 year old M here today for 1st Gelsyn bilateral knee injection. Agree with above. Ok is a pleasant 59-year-old presenting today for #1/3 Gelsyn???3 bilateral knee injections. Patient has had gel in the past with some symptom improvement. Patient denies any new injuries. Left knee is more symptomatic than the right with painful popping sensation, symptoms over the last 5 years and progressively worsening. + difficult to ambulate and symptoms are worsened with walking, steps, getting in and out of the car. Patient does have cane at home which he uses intermittently, using department wheelchair for today's visit. Patient drove himself here. History of multiple comorbidities including insulin-dependent diabetes, morbid obesity, recurrent and frequent abscesses that required I D and history of MRSA to these lesions. Seen in outpatient wound clinic today with cleaning and dressing of left thigh abscess, reported as improving. ROS Const All systems reviewed are unremarkable except as noted in H and other (A O x 3, no apparent distress. No recent illness.) ENT Denies dizziness Card Denies chest pain, Denies dyspnea, Denies edema and Reports other (No palpitations) Resp Denies cough, Denies dyspnea and Reports other (No recent URI) GI Reports system reviewed and no additional complaints, except as documented, Denies nausea and Denies vomiting Musc Reports as per HPI, Reports abnormal gait and Reports ar (more content not included)... Normal [facility] Surgery Visit Reporton 09-24 Surgery Visit Report [facility] [address] [place] [address] OFFICE VISIT Date of Service: 09/24/24 MR#: [id number] Acct: [id number] Name: OK GOMEZ Rep #: [id number] : 1965 Provider: CONSTANTINE ngo Age/Sex: 59/M Location: [facility] Status: Signed Intake Vital Signs 09/02/24 08:59 Height 5 ft 9 in Intake Visit Reasons: WOUND CHECK Chief Complaint: wound check Is patient in pain?: No Allergies escitalopram (From [employer]) Adverse Reaction (Verified 09/24/24 11:17) Rash Medications ???Medication ???Instructions ???Recorded ???Confirmed ???Type levothyroxine 200 mcg tablet 200 mcg PO DAILY 07/25/20 09/24/24 History metformin 500 mg tablet 1,000 mg PO BID 07/25/20 09/24/24 History paroxetine HCl 40 mg tablet 40 mg PO DAILY 07/25/20 09/24/24 H istory rosuvastatin 40 mg tablet 40 mg PO QHS 07/25/20 09/24/24 His tory aspirin 81 mg tablet,delayed 81 mg PO DAILY 09/27/20 09/24/24 H istory release multivitamin 1 cap DAILY 09/27/20 09/24/24 Hist ory amlodipine 10 mg tablet 10 mg PO QDAY 03/09/24 09/24/24 Hi story buspirone 10 mg tablet 10 mg PO BID 03/09/24 09/24/24 His tory insulin glargine U-300 conc 300 46 unit subcut QDAY 03/09/2409/24 History unit/mL (3 mL) subcutaneous pen (Toujeo Max U-300 SoloStar) levothyroxine 300 mcg tablet 300 mcg PO QDAY 03/09/24 09/24/24 History lisinopril 20 mg tablet 40 mg PO DAILY 03/09/24 09/24/24 H istory semaglutide 0.25 mg or 0.5 mg (2 2 mg subcut QWEEK 03/09/242 5 History mg/1.5 mL) subcutaneous pen injector (Ozempic) trazodone 100 mg tablet 100 mg PO QDAY 03/09/24 09/24/24 H istory metoprolol succinate 50 mg 50 mg PO DAILY #90 TABLETS 5 09/24/24 Rx tablet,extended release 24 hr doxycycline hyclate 100 mg tablet 100 mg PO BID 10 days #20 tabs 09/24/24 Rx Subjective Details: Patient is a 59 y/o M I am following s/p incision and drainage of left posterior thigh abscess by myself on 09/03/24. Patient tolerated the procedure well. He returns for another wound check. He notes the wound continues to drain very little. He notes minimal amount of discomfort. He still is placing a bandage over top of the area. PAtient also noted another small lump on his anterior right shoulder. Objective Details: Left posterior thigh- open wound with minimal healthy granulation tissue and moderate amount of eschar. Eschar was debrided until healthy tissue noted. Op-site was placed over top of the open wound Anterior right shoulder with noted raised lesion, however no I D is needed at this time Coding Level of Care Code Off vis,est,level 3 Diagnoses Abscess of left thigh L02.416 [facility] Medical History Healing wound Wound, open, buttock Morbid obesity Hyperlipidemia Supraventricular tachycardia Abscess of head Lumbar radiculopathy Low back pain Osteoarthritis of right knee Right knee pain MRSA (methicillin resistant staph aureus) culture positive Abscess of left thigh Abscess COVID-19 SVT (supraventricular tachycardia) Type 2 diabetes mellitus Anxiety and depression RANCHO on CPAP Essential hypertension Anxiety Diabetes Hypothyroidism Surgical History History of hip surgery Family History Father Hypertension Mother Myocardial infarction Diabetes Hypertension Sister Diabetes Social History household members: none Smoking Status: Never smoker alcohol intake: never substance use type: does not use caffeine: Yes Type: carbonated beverages Number of servings: 1 and tea Number of servings: 3 Assessment and Plan (No Qualifiers) Assessment and Plan (1) Abscess of left thigh: Status: Acute Plan: Recommend another 10 days of doxycycline Continue to keep the area covered until healed May shower without the bandage Follow-up in 3-4 weeks 09/24/24 1510 Date Edna Cool Signature: Date (if applicable) CC: Normal [facility] Surgery Visit Reporton 09-10 Surgery Visit Report [facility] [address] [place] [address]. [address] [place] [address] OFFICE VISIT Date of Service: 09/10/24 MR#: [id number] Acct: [id number] Name: OK GOMEZ Rep #: [id number] : 1965 Provider: CONSTANTINE ngo Age/Sex: 59/M Location: [facility] Status: Signed Intake Vital Signs 09/02/24 08:59 Height 5 ft 9 in Weight: 391 lb 2 oz BMI 57.7 Intake Visit Reasons: WOUND CHECK Chief Complaint: wound check Is patient in pain?: No Allergies escitalopram (From [employer]) Adverse Reaction (Verified 09/10/24 08:06) Rash Medications ???Medication ???Instructions ???Recorded ???Confirmed ???Type levothyroxine 200 mcg tablet 200 mcg PO DAILY 07/25/20 09/10/24 History metformin 500 mg tablet 1,000 mg PO BID 07/25/20 09/10/24 History paroxetine HCl 40 mg tablet 40 mg PO DAILY 07/25/20 09/10/24 H istory rosuvastatin 40 mg tablet 40 mg PO QHS 07/25/20 09/10/24 His tory aspirin 81 mg tablet,delayed 81 mg PO DAILY 09/27/20 09/10/24 H istory release multivitamin 1 cap DAILY 09/27/20 09/10/24 Hist ory amlodipine 10 mg tablet 10 mg PO QDAY 03/09/24 09/10/24 Hi story buspirone 10 mg tablet 10 mg PO BID 03/09/24 09/10/24 His tory insulin glargine U-300 conc 300 46 unit subcut QDAY 03/09/2409/10 History unit/mL (3 mL) subcutaneous pen (Toujeo Max U-300 SoloStar) levothyroxine 300 mcg tablet 300 mcg PO QDAY 03/09/24 09/10/24 History lisinopril 20 mg tablet 40 mg PO DAILY 03/09/24 09/10/24 H istory semaglutide 0.25 mg or 0.5 mg (2 2 mg subcut QWEEK 03/09/24 5 History mg/1.5 mL) subcutaneous pen injector (Ozempic) trazodone 100 mg tablet 100 mg PO QDAY 03/09/24 09/10/24 H istory metoprolol succinate 50 mg 50 mg PO DAILY #90 TABLETS 5 09/10/24 Rx tablet,extended release 24 hr doxycycline hyclate 100 mg tablet 100 mg PO BID 14 days #28 tabs 09/10/24 Rx Subjective Details: Patient is a 59 y/o M I am following s/p Incision and drainage of left posterior thigh abscess by myself on 09/03/24. Patient tolerated the procedure well. Patient stated the redness spread to his left scrotum. He went to [place] [facility] and was placed on an additional antibiotic Keflex in conjunction with doxy. Culture demonstrated MRSA Objective Details: Left posterior thigh- improved erythema. Moderate amount of eschar noted. Minimal amount of drainage noted. Gauze dressing reapplied. Coding Level of Care Code Global Post Op Diagnoses Abscess of left thigh L02.416 [facility] Medical History Healing wound Wound, open, buttock Morbid obesity Hyperlipidemia Supraventricular tachycardia Abscess of head Lumbar radiculopathy Low back pain Osteoarthritis of right knee Right knee pain MRSA (methicillin resistant staph aureus) culture positive Abscess of left thigh Abscess COVID-19 SVT (supraventricular tachycardia) Type 2 diabetes mellitus Anxiety and depression RANCHO on CPAP Essential hypertension Anxiety Diabetes Hypothyroidism Surgical History History of hip surgery Family History Father Hypertension Mother Myocardial infarction Diabetes Hypertension Sister Diabetes Social History household members: none Smoking Status: Never smoker alcohol intake: never substance use type: does not use caffeine: Yes Type: carbonated beverages Number of servings: 1 and tea Number of servings: 3 Assessment and Plan (No Qualifiers) Assessment and Plan (1) Abscess of left thigh: Status: Acute Plan: Continue to keep area covered until completely closed Continue doxy and Keflex Follow-up in 2 weeks for re-evaluation 09/10/24 1021 Date Edna Cool Signature: Date (if applicable) CC: Normal [facility] Culture, Anaerobic Any Sourc jolynn 09-08-2024 CUAN No anaerobic bacteri a isolated. Normal [facility] Comment on above: Performed By: #### M 100.1999, M100.3000, M1.4001 ####[facility] [address] [place], [place], [id number] Gram Stainon 09-06-2024 GS Gram Stain 2+ Gram positive cocci 1+ White Blood Cells No Epithelial cells Normal [facility] Comment on above: Performed By: #### M 100.2000, M100.3000, M100.4001 ####[facility] [address] [place], [place], [id number] Wound Cultureon 09-06-2024 WC Copy of report sent to Infection Control Printer [id number] 09/06/24 0726 JUVE. Meth. resistant Staph. aureus Amount Growth 3+ mecA Testing not performed Meth. resistant Staph. aureus: REACTION cefOXitin Susc Islt POS Doxycycline Islt NAN <=0.5 Clindamycin Islt NAN 0.25 S Clindamycin.induced Susc Islt NEG Erythromycin Islt NAN >=8 R Gentamicin Islt NAN <=0.5 S Linezolid Islt NAN 2 S Moxifloxacin Islt NAN <=0.25 S Oxacillin Susc Islt >=4 R Tetracycline Islt NAN <=1 S TMP SMX Islt NAN <=10 S Vancomycin Islt NAN <=0.5 S Normal [facility] Comment on above: Performed By: #### M 100.2000, M100.3000, M100.4001 ####[facility] [address] [place], [place], [id number] .Auto Diffon 09-05-2024 Basophil, Absolute 0.1 10 3/mcL Normal 0.0-0.3 [facility] Comment on above: Performed By: #### C ELISA ESCALANTE BMP, GRAHAM SIMS, GFR #### [address] [address] Basophils/100 WBC (Bld) 0.7 % Normal 0.0-2.5 [facility] Comment on above: Performed By: #### C ELISA ESCALANTE BMP, GRAHAM SIMS, GFR #### [address] [address] Eosinophil, Absolute 0.3 10 3/mcL Normal 0.0-0.7 [facility] Comment on above: Performed By: #### C ELISA ESCALANTE BMP, GRAHAM SIMS, GFR #### [address] [address] Eosinophils/100 WBC (Bld) 3.4 % Normal 0.0-6.0 [facility] Comment on above: Performed By: #### C ELISA ESCALANTE BMP, ANEU, MDW, GFR #### [address] [address] Lymphocyte, Absolute 2.2 10 3/mcL Normal 0.9-4.3 [facility] Comment on above: Performed By: #### C BC, ADIFF, BMP, ANEU, MDW, GFR #### [address] [address] Lymphocytes/100 WBC (Bld) 23.3 % Normal 20.0-40.0 [facility] Comment on above: Performed By: #### C BC, ADIFF, BMP, ANEU, MDW, GFR #### [address] [address] Monocyte, Absolute 1.0 10 3/mcL Normal 0.1-1.4 [facility] Comment on above: Performed By: #### C BC, ADIFF, BMP, ANEU, MDW, GFR #### [address] [address] Monocytes/100 WBC (Bld) 10.5 % Normal 2.0-13.0 [facility] Comment on above: Performed By: #### C BC, ADIFF, BMP, ANEU, MDW, GFR #### [address] [address] Neutrophils/100 WBC (Bld) 62.1 % Normal 50.0-75.0 [facility] Comment on above: Performed By: #### C BC, ADIFF, BMP, ANEU, MDW, GFR #### [address] [address] .GFRon 09-05-2024 Estimated Glomerular Filtration Rate 100 ml/min/1.73sqm Normal [facility] Comment on above: Result Comment: Stages of Chronic Kidney Disease (CKD) Stage Description eGFR(ml/min/1.73 sq.m.) CKD 1 Normal kidney function or >=90 normal kindney function with possible kidney damage (ex. Proteinuria) CKD 2 Kidney damage with mild loss 60-89 of kidney function CKD 3a Mild to moderate loss of kidney 45-59 function CKD 3b Moderate to severe loss of 30-44 of kindey function CKD 4 Severe loss of kidney function 15-29 CKD 5 Kidney failure <15 Note: (go live 2024) the eGFR calculation was updated to the 2020 CKD-EPI creatinine equation without a race factor to calculate the eGFR results. Performed By: #### C BC, ADIFF, BMP, ANEU, MDW, GFR #### [address] [address] .MDWon 09-05-2024 Monocyte Distribution Width 17.70 Normal 0.00-20.00 [facility] Comment on above: Result Comment: For ED adult patients suspected of sepsis, MDW<=20.0 does not rule out sepsis or risk of sepsis Performed By: #### C BC, ADIFF, BMP, ANEU, MDW, GFR #### [address] [address] .NEUABSon 09-05-2024 Neutrophil, Absolute 5.9 10 3/mcL Normal 2.3-8.1 [facility] Comment on above: Performed By: #### C BC, ADIFF, BMP, ANEU, MDW, GFR #### [address] [address] BMPon 09-05-2024 BUN/Creatinine Ratio 21 ratio Normal 7-27 [facility] Comment on above: Performed By: #### C BC, ADIFF, BMP, ANEU, MDW, GFR #### [address] [address] Calcium [Mass/Vol] 9.5 mg/dL Normal 8.4-10.2 [facility] Comment on above: Performed By: #### C BC, ADIFF, BMP, ANEU, MDW, GFR #### [address] [address] Chloride [Moles/Vol] 104 mmol/L Normal 98-107 [facility] Comment on above: Performed By: #### C BC, ADIFF, BMP, ANEU, MDW, GFR #### [address] [address] CO2 [Moles/Vol] 23 mmol/L Normal 22-29 [facility] Comment on above: Performed By: #### C BC, ADIFF, BMP, ANEU, MDW, GFR #### [address] [address] Creatinine [Mass/Vol] 0.89 mg/dL Normal 0.67-1.17 [facility] Comment on above: Performed By: #### C BC, ADIFF, BMP, ANEU, MDW, GFR #### [address] [address] Electrolyte Balance 11.0 mEq/L Normal 4.0-15.0 [facility] Comment on above: Performed By: #### C BC, ADIFF, BMP, ANEU, MDW, GFR #### [address] [address] Glucose [Mass/Vol] 117 mg/dL High 70-105 [facility] Comment on above: Performed By: #### C BC, ADIFF, BMP, ANEU, MDW, GFR #### [address] [address] Potassium [Moles/Vol] 4.5 mmol/L Normal 3.5-5.1 [facility] Comment on above: Performed By: #### C BC, ADIFF, BMP, ANEU, MDW, GFR #### [address] [address] Sodium [Moles/Vol] 138 mmol/L Normal 136-145 [facility] Comment on above: Performed By: #### C BC, ADIFF, BMP, ANEU, MDW, GFR #### [address] [address] Urea nitrogen [Mass/Vol] 19 mg/dL High 7-18 [facility] Comment on above: Performed By: #### C BC, ADIFF, BMP, ANEU, MDW, GFR #### [address] [address] CBCon 09-05-2024 Erythrocyte distribution width (RBC) [Ratio] 12.7 % Normal 11.5-15.5 [facility] Comment on above: Performed By: #### C BC, ADIFF, BMP, ANEU, MDW, GFR #### [address] [address] Hematocrit (Bld) [Volume fraction] 39.7 % Low 40.0-52.0 [facility] Comment on above: Performed By: #### C BC, ADIFF, BMP, ANEU, MDW, GFR #### [address] [address] Hgb 13.5 G/dL Normal 13.0-17.5 [facility] Comment on above: Performed By: #### C BC, ADIFF, BMP, ANEU, MDW, GFR #### [address] [address] MCH (RBC) [Entitic mass] 30.6 pg Normal 27.0-33.0 [facility] Comment on above: Performed By: #### C BC, ADIFF, BMP, ANEU, MDW, GFR #### [address] [address] MCHC 33.9 G/dL Normal 32.0-36.0 [facility] Comment on above: Performed By: #### C BC, ADIFF, BMP, ANEU, MDW, GFR #### [address] [address] MCV (RBC) [Entitic vol] 90.4 fL Normal 81.0-100.0 [facility] Comment on above: Performed By: #### C BC, ADIFF, BMP, ANEU, MDW, GFR #### [address] [address] Platelet 288 10 3/mcL Normal 150-450 [facility] Comment on above: Performed By: #### C BC, ADIFF, BMP, ANEU, MDW, GFR #### [address] [address] Platelet mean volume (Bld) [Entitic vol] 8.3 fL Normal 6.4-10.5 [facility] Comment on above: Performed By: #### C BC, ADIFF, BMP, ANEU, MDW, GFR #### [facility] [address] [place], [place] [address] RBC 4.40 10 6/mcL Low 4.50-6.00 [facility] Comment on above: Performed By: #### C BC, ADIFF, BMP, ANEU, MDW, GFR #### [address] [place], [place] [address] WBC 9.5 10 3/mcL Normal 4.5-10.8 [facility] Comment on above: Performed By: #### C BC, ADIFF, BMP, ANEU, MDW, GFR #### [address] [place], [place] [address] CT ABD/PELVIS W/ IV CONTRAST ONLYon 09-05-2024 CT ABD/PELVIS W/ IV CONTRAST ONLY ORIGINAL EXAMINATION: CT OF THE ABDOMEN AND PELVIS WITH CONTRAST 09/05/2024 10:17 pm TECHNIQUE: CT of the abdomen and pelvis was performed with the administration of intravenous contrast. Multiplanar reformatted images are provided for review. Automated exposure control, iterative reconstruction, and/or weight based adjustment of the mA/kV was utilized to reduce the radiation dose to as low as reasonably achievable. COMPARISON: CT abdomen pelvis January 05, 2023 HISTORY: ORDERING SYSTEM PROVIDED HISTORY: Reason for Exam: redness and swelling left groin area. not painful left inguinal swelling FINDINGS: Suboptimal exam due to patient body habitus. Lower Chest: No focal consolidation. Coronary artery calcifications. Organs: Grossly unremarkable. GI/Bowel: Grossly unremarkable. Pelvis: Grossly unremarkable. Peritoneum/Retroperiton eum: Nonaneurysmal abdominal aorta with atherosclerotic plaque. A few mildly prominent left inguinal lymph nodes and left iliac chain lymph nodes. Bones/Soft Tissues: Right femur fixation hardware partially imaged. Multilevel degenerative change of the spine. IMPRESSION: A few mildly prominent left iliac chain and inguinal lymph nodes, presumably related to reported history of left groin redness and swelling. Interpreted by: Alexei Aldana Preliminary Report By: Alexei Aldana Electronically signed By Alexei Aldana Dictated Date: 09/05/2024 10:20:06 PM Prelim Date: 09/05/2024 10:24:56 PM Sign Date: 09/05/2024 10:24:56 PM Ordering Provider: MELO Daniels [facility] LABORATORYOrdered By: SYSTEM SYSTEM on 09-05-2024 Basophils (Bld) [#/Vol] 0.1 103/mcL Normal 0.0 - 0.3 10^3/mcL AO Workflow SS Basophils/100 WBC (Bld) 0.7 % Normal 0.0 - 2.5 % AO Workflow SS Calcium [Mass/Vol] 9.5 mg/dL Normal 8.4 - 10. 2 mg/dL AO ADM SS Chloride [Moles/Vol] 104 mmol/L Normal 98 - 10 7 mmol/L AO ADM SS CO2 [Moles/Vol] 23 mmol/L Normal 22 - 29 mmol/L AO ADM SS Creatinine [Mass/Vol] 0.89 mg/dL Normal 0.67 - 1.17 mg/dL AO ADM SS Electrolyte Balance 11.0 mEq/L Normal 4.0 - 15 .0 mEq/L AO ADM SS Eosinophil, Absolute 0.3 103/mcL Normal 0.0 - 0 .7 10^3/mcL AO Workflow SS Eosinophils/100 WBC (Bld) 3.4 % Normal 0.0 - 6.0 % AO Workflow SS Erythrocyte distribution width (RBC) [Ratio] 12.7 % Normal 11.5 - 15.5 % AO Workflow SS Estimated Glomerular Filtration Rate 100 ml/min/1.73sqm Invalid Interpretation Code AO Chemistry S Comment on above: Interpretive Data: Stages of Chronic Kidney Disease (CKD) Stage Description eGFR(ml/min/1.73 sq.m.) CKD 1 Normal kidney function or >=90 normal kindney function with possible kidney damage (ex. Proteinuria) CKD 2 Kidney damage with mild loss 60-89 of kidney function CKD 3a Mild to moderate loss of kidney 45-59 function CKD 3b Moderate to severe loss of 30-44 of kindey function CKD 4 Severe loss of kidney function 15-29 CKD 5 Kidney failure <15 Note: (go live 2024) the eGFR calculation was updated to the 2020 CKD-EPI creatinine equation without a race factor to calculate the eGFR results. Glucose [Mass/Vol] 117 mg/dL High 70 - 105 mg/dL AO ADM SS Hematocrit (Bld) [Volume fraction] 39.7 % Low 40.0 - 52.0 % AO Workflow SS Hemoglobin (Bld) [Mass/Vol] 13.5 G/dL Normal 13.0 - 17.5 G/dL AO Workflow SS Lymphocytes (Bld) [#/Vol] 2.2 103/mcL Normal 0.9 - 4.3 10^3/mcL AO Workflow SS Lymphocytes/100 WBC (Bld) 23.3 % Normal 20.0 - 40.0 % AO Workflow SS MCH (RBC) [Entitic mass] 30.6 pg Normal 27.0 - 33.0 pg AO Workflow SS MCHC 33.9 G/dL Normal 32.0 - 36.0 G/dL AO Workflow SS MCV (RBC) [Entitic vol] 90.4 fL Normal 81.0 - 100.0 fL AO Workflow SS Monocyte distribution width Auto (Bld) [Entitic vol] 17.70 1 Normal 0.00 - 20.00 AO Workflow SS Comment on above: Result Comment: For ED adult patients suspected of sepsis, MDW<=20.0 does not rule out sepsis or risk of sepsis Monocytes (Bld) [#/Vol] 1.0 103/mcL Normal 0.1 - 1.4 10^3/mcL AO Workflow SS Monocytes/100 WBC (Bld) 10.5 % Normal 2.0 - 13.0 % AO Workflow SS Neutrophils (Bld) [#/Vol] 5.9 103/mcL Normal 2.3 - 8.1 10^3/mcL AO Workflow SS Neutrophils/100 WBC (Bld) 62.1 % Normal 50.0 - 75.0 % AO Workflow SS Platelet mean volume (Bld) [Entitic vol] 8.3 fL Normal 6.4 - 10.5 fL AO Workflow SS Platelets (Bld) [#/Vol] 288 103/mcL Normal 150 - 450 10^3/mcL AO Workflow SS Potassium [Moles/Vol] 4.5 mmol/L Normal 3.5 - 5.1 mmol/L AO ADM SS RBC (Bld) [#/Vol] 4.40 106/mcL Low 4.50 - 6.0 0 10^6/mcL AO Workflow SS Sodium [Moles/Vol] 138 mmol/L Normal 136 - 145 mmol/L AO ADM SS Urea nitrogen [Mass/Vol] 19 mg/dL High 7 - 18 mg/dL AO ADM SS Urea nitrogen/Creatinine [Mass ratio] 21 ratio Normal 7 - 27 ratio AO ADM SS WBC (Bld) [#/Vol] 9.5 103/mcL Normal 4.5 - 10.8 10^3/mcL AO Workflow SS Anaerobic cultureOrdered By: Edna Garcia on 09-04-2024 Bacteria identified Anaer cx Nom (Unsp spec) No anaerobic bacteria isolated. [facility] Gram stainOrdered By: Edna Garcia on 09-04-2024 Microscopic observation Gram stain Nom (Unsp spec) [facility] Routine wound cultureOrdered By: Edna Garcia on 09-04-2024 Microbial culture, routine Meth. resistant Staph. aureus Abnormal [facility] Surgery Visit Reporton 09-03 Surgery Visit Report [facility] [address] [place] [address] OFFICE VISIT Date of Service: 09/03/24 MR#: [id number] Acct: [id number] Name: PATRICIAOK Suresh Rep #: [id number] : 1965 Provider: CONSTANTINE ngo Age/Sex: 59/M Location: [facility] Status: Signed Intake Vital Signs 08/31/24 08:44 09/02/24 08:59 Height 5 ft 9 in 5 ft 9 in Weight: 391 lb 2 oz BMI 57.7 Intake Visit Reasons: THIGH ABSCESS Chief Complaint: thigh cyst/abcess Is patient in pain?: No Allergies escitalopram (From Lexapro) Adverse Reaction (Verified 09/03/24 13:45) Rash Medications ???Medication ???Instructions ???Recorded ???Confirmed ???Type levothyroxine 200 mcg tablet 200 mcg PO DAILY 07/25/20 09/03/24 History metformin 500 mg tablet 1,000 mg PO BID 07/25/20 09/03/24 History paroxetine HCl 40 mg tablet 40 mg PO DAILY 07/25/20 09/03/24 H istory rosuvastatin 40 mg tablet 40 mg PO QHS 07/25/20 09/03/24 His tory aspirin 81 mg tablet,delayed 81 mg PO DAILY 09/27/20 09/03/24 H istory release multivitamin 1 cap DAILY 09/27/20 09/03/24 Hist ory amlodipine 10 mg tablet 10 mg PO QDAY 11/18/24 05/15/25 Hi story buspirone 10 mg tablet 10 mg PO BID 03/09/24 09/03/24 His tory insulin glargine U-300 conc 300 46 unit subcut QDAY 03/09/2409/03 History unit/mL (3 mL) subcutaneous pen (Toujeo Max U-300 SoloStar) levothyroxine 300 mcg tablet 300 mcg PO QDAY 03/09/24 09/03/24 History lisinopril 20 mg tablet 40 mg PO DAILY 03/09/24 09/03/24 H istory semaglutide 0.25 mg or 0.5 mg (2 2 mg subcut QWEEK 03/09/24 5 History mg/1.5 mL) subcutaneous pen injector (Ozempic) trazodone 100 mg tablet 100 mg PO QDAY 03/09/24 09/03/24 H istory metoprolol succinate 50 mg 50 mg PO DAILY #90 TABLETS 05/21/ 5 09/03/24 Rx tablet,extended release 24 hr doxycycline hyclate 100 mg tablet 100 mg PO BID 14 days #28 tabs 09/03/24 Rx PFSH Medical History Healing wound Wound, open, buttock Morbid obesity Hyperlipidemia Supraventricular tachycardia Abscess of head Lumbar radiculopathy Low back pain Osteoarthritis of right knee Right knee pain MRSA (methicillin resistant staph aureus) culture positive Abscess of left thigh Abscess COVID-19 SVT (supraventricular tachycardia) Type 2 diabetes mellitus Anxiety and depression RANCHO on CPAP Essential hypertension Anxiety Diabetes Hypothyroidism Surgical History History of hip surgery Family History Father Hypertension Mother Myocardial infarction Diabetes Hypertension Sister Diabetes Social History household members: none Smoking Status: Never smoker alcohol intake: never substance use type: does not use caffeine: Yes Type: carbonated beverages Number of servings: 1 and tea Number of servings: 3 HPI HPI HPI: Patient is a 59 y/o M who presents with a painful left posterior thigh abscess. He notes this started on Saturday. He states that it drained purulent material slghtly. He has a history of MRSA. He notes this is a new location from his previous abscesses. ROS General General: No weight change, appetite, fatigue, colon cancer or breast cancer HEENT HEENT: No difficulty swallowing, eye injury, eye surgery, swollen glands or hoarseness Endo Endocrine: Yes diabetes mellitus; No thyroid disease, thyroid cancer, Hair loss, heat intolerance or cold intolerance Skin Additional Details: cyst on upper thigh Breast Breast: No left breast lump, right breast lump, nipple discharge, breast pain, abnormal mammogram, abnormal US or breast enlargement Musc Musculoskeletal: Yes arthritis and joint pain; No back problems, rheumatoid arthritis or gout Cardio Cardiovascular: Yes heart disease and high blood pressure; No murmur, pacemaker, atrial fibrillation, heart attack, heart stent, palpitations, shortness of breath with exertion or chest pain Psych Psychiatric: Yes depression and anxiety; No hearing voices Resp Respiratory: Yes shortness of breath, No sleep apnea, No cough, No COPD, No asthma, No emphysema and No wheezing Gastro Gastrointestinal: No abdominal pain, No nausea or vomiting, No diarrhea, No constipation, No blood in stool, No acid reflux, No hemorrhoids, No ulcers, No gallbladder problem and No black,tarry stools Nico Hematologic: No blood thinners, No blood disorders, No bleeding, No anemia and No blood clots Exam Skin Other: Left posterior thigh- moderate sized abscess with necrotic center. Approximately 5 cm of surrou (more content not included)... Normal [facility] Knee 4 or More Viewson 09-02 Knee 4 or More Views [facility] [address] [place] [address] Knee 4 or More Views MR#: [id number] Acct: [id number] Name: OK GOMEZ Rep #: [id number] : 1965 M 59 From: Favian Bridges MD PCP: Dr. Alison Reyes MD Status: DEP AMB Study: Knee 4 or More Views Date of Exam: 09/02/24 Exam# [id number] Ordering Dr: Juani Turcios DIAGNOSTICS TECH-C EXAM: XR Right Knee Complete, 4 or More Views CLINICAL INDICATION: INCREASED KNEE PAIN TECHNIQUE: Four or more views of the right knee. COMPARISON: No relevant prior studies available. FINDINGS: BONES/JOINTS: Severe degenerative changes of the medial compartment of the knee joint. Partially visualized intramedullary kamille fixation of the femur. No acute fracture. No dislocation. SOFT TISSUES: Unremarkable. RAD/Knee 4 or More Views IMPRESSION: 1. Degenerative changes as above. 2. Postoperative changes as above. Reading [facility] CC: DARNELL Turcios; Dr. Alison Reyes MD Dish Technician: Signed Normal [facility] Orthopedic Visit Reporton Orthopedic Visit Report [facility] [address] [place] [address] OFFICE VISIT Date of Service: 09/02/24 MR#: [id number] Acct: [id number] Name: OK GOMEZ Rep #: [id number] : 1965 Provider: DARNELL blake Age/Sex: 59/M Location: [facility] [place] Status: Signed Intake Vital Signs 07/28/24 13:14 08/31/24 08:44 09/02/24 07:54 09/02/24 08:59 Height 5 ft 9 in 5 ft 9 in 5 ft 9 in 5 ft 9 in Weight: 395 lb 391 lb 2 oz BMI 58.3 57.7 Intake Visit Reasons: BL KNEES Chief Complaint: Bilateral knee pain Accompanied by: Self Is patient in pain?: Yes Pain scale (1-10): 7 Allergies escitalopram (From Lexapro) Adverse Reaction (Verified 09/02/24 08:01) Rash Medications ???Medication ???Instructions ???Recorded ???Confirmed ???Type levothyroxine 200 mcg tablet 200 mcg PO DAILY 07/25/20 09/02/24 History metformin 500 mg tablet 1,000 mg PO BID 07/25/20 09/02/24 History paroxetine HCl 40 mg tablet 40 mg PO DAILY 07/25/20 09/02/24 H istory rosuvastatin 40 mg tablet 40 mg PO QHS 07/25/20 09/02/24 His tory aspirin 81 mg tablet,delayed 81 mg PO DAILY 09/27/20 09/02/24 H istory release multivitamin 1 cap DAILY 09/27/20 09/02/24 Hist ory amlodipine 10 mg tablet 10 mg PO QDAY 03/09/24 09/02/24 Hi story buspirone 10 mg tablet 10 mg PO BID 03/09/24 09/02/24 His tory insulin glargine U-300 conc 300 46 unit subcut QDAY 03/09/2409/02 History unit/mL (3 mL) subcutaneous pen (Toujeo Max U-300 SoloStar) levothyroxine 300 mcg tablet 300 mcg PO QDAY 03/09/24 09/02/24 History lisinopril 20 mg tablet 40 mg PO DAILY 03/09/24 09/02/24 H istory semaglutide 0.25 mg or 0.5 mg (2 2 mg subcut QWEEK 03/09/24 5 History mg/1.5 mL) subcutaneous pen injector (Ozempic) trazodone 100 mg tablet 100 mg PO QDAY 03/09/24 09/02/24 H istory metoprolol succinate 50 mg 50 mg PO DAILY #90 TABLETS 5 09/02/24 Rx tablet,extended release 24 hr Have you fallen in the past year?: No PFSH Medical History Healing wound Wound, open, buttock Morbid obesity Hyperlipidemia Supraventricular tachycardia Abscess of head Lumbar radiculopathy Low back pain Osteoarthritis of right knee Right knee pain MRSA (methicillin resistant staph aureus) culture positive Abscess of left thigh Abscess COVID-19 SVT (supraventricular tachycardia) Type 2 diabetes mellitus Anxiety and depression RANCHO on CPAP Essential hypertension Anxiety Diabetes Hypothyroidism Surgical History History of hip surgery Family History Father Hypertension Mother Myocardial infarction Diabetes Hypertension Sister Diabetes Social History household members: none Smoking Status: Never smoker alcohol intake: never substance use type: does not use caffeine: Yes Type: carbonated beverages Number of servings: 1 and tea Number of servings: 3 HPI BL KNEES Details: This documentation accurately reflects the service provided and the decisions made by me, DARNELL Calero 09/02/24 0754. Part of today???s visit was documented by Kendy Ferris MA, acting as scribe. KO GOMEZ is a 59 year old M here today for bilateral knee pain. Patient is having pain in both knees. The pain is sharp and stabbing. In the left knee every time he walks his left knee cracks. Sometimes it's painful when it cracks. The left knee is a lot worse then the right knee. Patient states that all he feels is a painful grind. He has swelling in his left knee. This has been going on for 5 years. Patient states that he has had no injuries with this, just thinks it's bad arthritis. Patient denies any surgeries on his knees. Walking makes the pain worse. Sometimes the pain gets worse when he extends his knees out. Patient has been going to pain management for injections. Dr. Croft has been doing his knee injections for a year. Patient's last appointment was last Spring. He is not doing any physical therapy. Patient denies any smoking or drugs use. Patient denies any numbness or tingling in the feet or toes. In agreement with above. Ok is a pleasant 59-year-old gentleman presenting for bilateral knee pain. Patient has been seeing Dr. Croft, states last injection was spring of last year, he is unsure what he was injected with. Patient is established in this practice and saw both Dr. Kelly for lumbar radicular pain and Dr. Horton for right knee pain in March 2023. Patient denies any new injuries. Left knee is more symptomatic than the right with painful popping s (more content not included)... [facility] Surgery Visit Reporton 07-28 Surgery Visit Report [facility] [address] [place] [address] OFFICE VISIT Date of Service: 07/28/24 MR#: [id number] Acct: [id number] Name: OK GOMEZ Rep #: [id number] : 1965 Provider: CONSTANTINE ngo Age/Sex: 59/M Location: [facility] Status: Signed Intake Vital Signs 06/05/24 13:55 07/28/24 13:14 Height 5 ft 9 in 5 ft 9 in Weight: 395 lb BMI 58.3 Intake Visit Reasons: BOIL ON LEG Chief Complaint: cyst on left thigh Is patient in pain?: Yes (arthritic knee) Allergies escitalopram (From Lexapro) Adverse Reaction (Verified 07/28/24 13:16) Rash Medications ???Medication ???Instructions ???Recorded ???Confirmed ???Type levothyroxine 200 mcg tablet 200 mcg PO DAILY 07/25/20 07/28/24 History metformin 500 mg tablet 1,000 mg PO BID 07/25/20 07/28/24 History paroxetine HCl 40 mg tablet 40 mg PO DAILY 07/25/20 07/28/24 H istory rosuvastatin 40 mg tablet 40 mg PO QHS 07/25/20 07/28/24 His tory aspirin 81 mg tablet,delayed 81 mg PO DAILY 09/27/20 07/28/24 H istory release multivitamin 1 cap DAILY 09/27/20 07/28/24 Hist ory celecoxib 200 mg capsule (Celebrex) 200 mg PO BID #30 caps 01/03/23 07/28/24 Rx amlodipine 10 mg tablet 10 mg PO QDAY 03/09/24 07/28/24 Hi story buspirone 10 mg tablet 10 mg PO BID 03/09/24 07/28/24 His tory insulin glargine U-300 conc 300 46 unit subcut QDAY 03/09/2407/28 History unit/mL (3 mL) subcutaneous pen (Toujeo Max U-300 SoloStar) levothyroxine 300 mcg tablet 300 mcg PO QDAY 03/09/24 07/28/24 History lisinopril 20 mg tablet 40 mg PO DAILY 03/09/24 07/28/24 H istory semaglutide 0.25 mg or 0.5 mg (2 2 mg subcut QWEEK 03/09/24 5 History mg/1.5 mL) subcutaneous pen injector (Ozempic) trazodone 100 mg tablet 100 mg PO QDAY 03/09/24 07/28/24 H istory metoprolol succinate 50 mg 50 mg PO DAILY #90 TABLETS 5 07/28/24 Rx tablet,extended release 24 hr doxycycline hyclate 100 mg tablet 100 mg PO BID 7 days #14 tabs 12/1407/28/24 Rx PFSH Medical History (Updated 07/28/24 @ 14:24 by Edna CEJA PA-C) Healing wound Wound, open, buttock Morbid obesity Hyperlipidemia Supraventricular tachycardia Abscess of head Lumbar radiculopathy Low back pain Osteoarthritis of right knee Right knee pain MRSA (methicillin resistant staph aureus) culture positive Abscess of left thigh Abscess COVID-19 SVT (supraventricular tachycardia) Type 2 diabetes mellitus Anxiety and depression RANCHO on CPAP Essential hypertension Anxiety Diabetes Hypothyroidism Surgical History History of hip surgery Family History Father Hypertension Mother Myocardial infarction Diabetes Hypertension Sister Diabetes Social History household members: none Smoking Status: Never smoker alcohol intake: never substance use type: does not use caffeine: Yes Type: carbonated beverages Number of servings: 1 and tea Number of servings: 3 HPI HPI HPI: Patient is a 59 y/o M who is well known to myself and the staff in the office. He has had multiple boils/abscesses that have been incised and drained. He has a history of MRSA. He contacts our office yesterday noting that he has a painful abscess on his left posterior thigh. He notes the painful area has been there for approximately 1 week. He is not currently on antibiotics. He has not seen anyone for this abscess. ROS General General: No weight change, appetite, fatigue, colon cancer or breast cancer HEENT HEENT: No difficulty swallowing, eye injury, eye surgery, swollen glands or hoarseness Endo Endocrine: Yes diabetes mellitus; No thyroid disease, thyroid cancer, Hair loss, heat intolerance or cold intolerance Skin Additional Details: Left back of thigh, cyst Breast Breast: No left breast lump, right breast lump, nipple discharge, breast pain, abnormal mammogram, abnormal US or breast enlargement Musc Musculoskeletal: Yes arthritis and joint pain; No back problems, rheumatoid arthritis or gout Cardio Cardiovascular: Yes heart disease and high blood pressure; No murmur, pacemaker, atrial fibrillation, heart attack, heart stent, palpitations, shortness of breath with exertion or chest pain Psych Psychiatric: Yes depression and anxiety; No hearing voices Resp Respiratory: Yes shortness of breath, No sleep apnea, No cough, No COPD, No asthma, No emphysema and No wheezing Gastro Gastrointestinal: No abdominal pain, No nausea or vomiting, No diarrhea, No constipation, No blood in stool, No acid reflux, No hemorrhoids, No ulcers, No gallblad (more content not included)... [facility] Shoulder min 2 Viewson 06-24 Shoulder min 2 Views [facility] [address] [place], [place] [id number] Shoulder min 2 Views MR#: [id number] Acct: [id number] Name: OK GOMEZ Rep #: [id number] : 1965 M 59 From: Jim Pulliam PCP: Dr. Alison Reyes MD Status: REG CLI Study: Shoulder min 2 Views Date of Exam: 06/24/24 Exam# [id number] Ordering Dr: Alison Reyes MD PROCEDURE: SHOULDER MIN 2 VIEWS REASON FOR EXAM: Pain. TECHNIQUE: Five view right shoulder series COMPARISON: None. RAD/Shoulder min 2 Views IMPRESSION: Mild degenerative changes are seen of the right acromioclavicular joint. The right glenohumeral joint demonstrates minimal degenerative changes, without apparent joint narrowing. Satisfactory alignment is seen. No fracture or other significant abnormality is identified Reading Location: [id number] CC: Dr. Alison Reyes MD Dish Technician: Signed [facility] Orthopedic Visit Reporton Orthopedic Visit Report [facility] [address] [place] [address] [address] [place] [address] OFFICE VISIT Date of Service: 06/15/24 MR#: [id number] Acct: [id number] Name: OK GOMEZ Rep #: [id number] : 1965 Provider: Dr. Haresh josue DO Age/Sex: 59/M Location: [facility] Status: Signed Intake Vital Signs 05/15/24 17:18 06/05/24 13:55 Height 5 ft 9 in 5 ft 9 in Intake Visit Reasons: LEFT KNEE Chief Complaint: wound on upper thigh/buttock. Allergies escitalopram (From Lexapro) Adverse Reaction (Verified 06/03/24 14:01) Rash PFSH Medical History Morbid obesity Hyperlipidemia Supraventricular tachycardia Abscess of head Lumbar radiculopathy Low back pain Osteoarthritis of right knee Right knee pain MRSA (methicillin resistant staph aureus) culture positive Abscess of left thigh Abscess COVID-19 SVT (supraventricular tachycardia) Type 2 diabetes mellitus Anxiety and depression RANCHO on CPAP Essential hypertension Anxiety Diabetes Hypothyroidism Surgical History History of hip surgery Family History Father Hypertension Mother Myocardial infarction Diabetes Hypertension Sister Diabetes Social History household members: none Smoking Status: Never smoker alcohol intake: never substance use type: does not use caffeine: Yes Type: carbonated beverages Number of servings: 1 and tea Number of servings: 3 HPI LEFT KNEE Details: This documentation accurately reflects the service provided and the decisions made by me, Dr. Haresh Bejarano DO 06/10/24 0801. Part of today???s visit was documented by [ ], acting as scribe. OK GOMEZ is a 59 year old M with medical history significant for but not limited to morbid obesity, diabetes mellitus type 2 insulin-dependent, hyperlipidemia, history of open wounds, hypothyroidism, lumbar radiculopathy, obstructive sleep apnea, essential hypertension, SVT, History of multiple posterior thigh and buttock abscesses with incision and drainages . recently saw general surgery 06/03/2024 for a left buttocks abscess. He did have the area cleaned debrided and packed and started on doxycycline for 10 days, Here today for ER follow-up over the left knee pain. 05/19/2024: Blood work normal white blood cell count neutrophil percent A1c 7.7 05/15/2024 ER visit atraumatic left knee pain: Patient had x-ray which showed degenerative changes and Doppler ultrasound which was negative. he had no signs of septic joint and was discharged home with OTC anti-inflammatories. Patient no showed for this appointment. This is second no-show this week he was previously scheduled on 06/08/2024. Supplemental Info 05/19/2024 blood work: Normal white blood cell count and neutrophil percent 05/15/2024 x-ray left knee there is degenerative spurring noted medial and lateral compartments and moderate patellofemoral arthrosis with an externally rotated trochlea Coding Level of Care Code No Charge 06/10/24 1343 Date Haresh Bejarano DO [facility] Signature: Date (if applicable) CC: [facility] XR KNEE THREE VIEWS LEFTon 0 06-05-2024 XR KNEE THREE VIEWS LEFT ORIGINAL EXAMINATION: THREE XRAY VIEWS OF THE LEFT KNEE 06/05/2024 12:56 am COMPARISON: None. HISTORY: ORDERING SYSTEM PROVIDED HISTORY: Reason for Exam: pain, injury FINDINGS: There is no fracture or dislocation of the left knee. There is mild tibiofemoral and patellofemoral osteoarthritis. No significant joint effusion is present. There are no periarticular calcifications. No foreign body is present. IMPRESSION: 1. No fracture or dislocation of the left knee. 2. Mild osteoarthritis. Interpreted by: Teofilo Romero MD Preliminary Report By: Teofilo Romero MD Electronically signed By Teofilo Romero MD Dictated Date: 06/05/2024 1:10:56 AM Prelim Date: 06/05/2024 1:12:00 AM Sign Date: 06/05/2024 1:12:00 AM Ordering Provider: TYRELL Daniels [facility] Surgery Visit Reporton 06-03 Surgery Visit Report [facility] [address] [place] [address] OFFICE VISIT Date of Service: 06/03/24 MR#: [id number] Acct: [id number] Name: OK GOMEZ Rep #: [id number] : 1965 Provider: CONSTANTINE ngo Age/Sex: 59/M Location: [facility] Status: Signed Intake Vital Signs 05/15/24 17:18 Height 5 ft 9 in Intake Visit Reasons: SORE ON LEG Chief Complaint: wound on upper thigh/buttock. Is patient in pain?: Yes Allergies escitalopram (From Lexapro) Adverse Reaction (Verified 06/03/24 14:01) Rash Medications ???Medication ???Instructions ???Recorded ???Confirmed ???Type levothyroxine 200 mcg tablet 200 mcg PO DAILY 07/25/20 06/03/24 History metformin 500 mg tablet 1,000 mg PO BID 07/25/20 06/03/24 History paroxetine HCl 40 mg tablet 40 mg PO DAILY 07/25/20 06/03/24 H istory rosuvastatin 40 mg tablet 40 mg PO QHS 07/25/20 06/03/24 His tory aspirin 81 mg tablet,delayed 81 mg PO DAILY 09/27/20 06/03/24 H istory release multivitamin 1 cap DAILY 09/27/20 06/03/24 Hist ory celecoxib 200 mg capsule (Celebrex) 200 mg PO BID #30 caps 01/03/23 06/03/24 Rx amlodipine 10 mg tablet 10 mg PO QDAY 03/09/24 06/03/24 Hi story buspirone 10 mg tablet 10 mg PO BID 03/09/24 06/03/24 His tory insulin glargine U-300 conc 300 46 unit subcut QDAY 03/09/2406/03 History unit/mL (3 mL) subcutaneous pen (Toujeo Max U-300 SoloStar) levothyroxine 300 mcg tablet 300 mcg PO QDAY 03/09/24 06/03/24 History lisinopril 20 mg tablet 40 mg PO DAILY 03/09/24 06/03/24 H istory semaglutide 0.25 mg or 0.5 mg (2 2 mg subcut QWEEK 03/09/24 5 History mg/1.5 mL) subcutaneous pen injector (Ozempic) trazodone 100 mg tablet 100 mg PO QDAY 03/09/24 06/03/24 H istory metoprolol succinate 50 mg 50 mg PO DAILY #90 TABLETS 5 06/03/24 Rx tablet,extended release 24 hr doxycycline hyclate 100 mg tablet 100 mg PO BID 10 days #20 tabs Rx PFSH Medical History Morbid obesity Hyperlipidemia Supraventricular tachycardia Abscess of head Lumbar radiculopathy Low back pain Osteoarthritis of right knee Right knee pain MRSA (methicillin resistant staph aureus) culture positive Abscess of left thigh Abscess COVID-19 SVT (supraventricular tachycardia) Type 2 diabetes mellitus Anxiety and depression RANCHO on CPAP Essential hypertension Anxiety Diabetes Hypothyroidism Surgical History History of hip surgery Family History Father Hypertension Mother Myocardial infarction Diabetes Hypertension Sister Diabetes Social History household members: none Smoking Status: Never smoker alcohol intake: never substance use type: does not use caffeine: Yes Type: carbonated beverages Number of servings: 1 and tea Number of servings: 3 HPI HPI HPI: Patient is a 59 y/o M I am seeing for a new sore on the posterior left lower extremity. Patient states the area started several days ago. He notes at some point the area started to drain. He is seeking evaluation and any additional treatment that may be needed. Patient has a significant history of abscesses. He has a history of MRSA. ROS General General: No weight change, appetite, fatigue, colon cancer or breast cancer HEENT HEENT: No difficulty swallowing, eye injury, eye surgery, swollen glands or hoarseness Endo Endocrine: Yes diabetes mellitus; No thyroid disease, thyroid cancer, Hair loss, heat intolerance or cold intolerance Skin Additional Details: Left posterior leg and bilateral hands fifth digit dorsal aspect- abscesses Breast Breast: No left breast lump, right breast lump, nipple discharge, breast pain, abnormal mammogram, abnormal US or breast enlargement Musc Musculoskeletal: Yes arthritis and joint pain; No back problems, rheumatoid arthritis or gout Cardio Cardiovascular: Yes heart disease and high blood pressure; No murmur, pacemaker, atrial fibrillation, heart attack, heart stent, palpitations, shortness of breat with exertion or chest pain Psych Psychiatric: Yes depression and anxiety; No hearing voices Resp Respiratory: Yes shortness of breath, No sleep apnea, No cough, No COPD, No asthma, No emphysema and No wheezing Gastro Gastrointestinal: No abdominal pain, No nausea or vomiting, No diarrhea, No constipation, No blood in stool, No acid reflux, No hemorrhoids, No ulcers, No gallbladder problem and No black,tarry stool s Nico Hematologic: No blood thinners, No blood disorders, No bleeding, No anemia and No blood clots Ex (more content not included)... [facility] Absolute lymphocyte countOrd ered By: Alison Reyes on 05-19-2024 Lymphocytes Auto (Unsp spec) [#/Vol] 2.35 10*3/uL 0.83-4.51 [facility] Absolute neutrophil countOrd ered By: Alison Reyes on 05-19-2024 Neutrophils (Bld) [#/Vol] 4.4 10*3/uL 2.0-7.7 [facility] Albumin to globulin ratioOrd ered By: Alison Reyes on 05-19-2024 Albumin/Globulin [Mass ratio] 0.9 {ratio} 0.9-2.4 [facility] Automated lymphocyte count a s percentage of total leukocytesOrdered By: Alison Reyes on 05-19-2024 Lymphocytes/100 WBC Auto (Unsp spec) 30.6 % 19-41 [facility] Basophil percentageOrdered B y: Alison Reyes on 05-19-2024 Basophils/100 WBC (Bld) 0.7 % 0-1 [facility] Bilirubin, totalOrdered By: Alison Reyes on 05-19-2024 Bilirubin [Mass/Vol] 0.40 mg/dL 0.20-1.00 [facility] Comment on above: For patients on eltr ombopag therapy, use of Dimension [place] TBIL is not recommended. Blood urea nitrogen (BUN)/cr eatinine ratioOrdered By: Alison Reyes on 05-19-2024 Urea nitrogen/Creatinine [Mass ratio] 18.7 mg/mg 10-20 [facility] CBC W/Diff, Automatedon 04-23 Absolute Lymph 2.35 X10 3/uL Normal 0.83-4.51 [facility] Comment on above: Order Comment: Order Date: 05/19/24 Order Info: [id number] - CBCD Performed By: #### L 100.0100, L501.9520, L500.4050, L501.9910, L501.9985, L501.5200, L500.4100 #### [facility] [address] [place], [address] Absolute Neut 4.4 X10 3/uL Normal 2.0-7.7 [facility] Comment on above: Order Comment: Order Date: 05/19/24 Order Info: 0184-1 - CBCD Performed By: #### L 100.0100, L501.9520, L500.4050, L501.9910, L501.9985, L501.5200, L500.4100 #### [facility] [address] [place], [address] Basophils/100 WBC (Bld) 0.7 % Normal 0-1 [facility] Comment on above: Order Comment: Order Date: 05/19/24 Order Info: 0184-1 - CBCD Performed By: #### L 100.0100, L501.9520, L500.4050, L501.9910, L501.9985, L501.5200, L500.4100 #### [facility] [address] [place], [address] Eosinophils/100 WBC (Bld) 3.8 % Normal 0-5 [facility] Comment on above: Order Comment: Order Date: 05/19/24 Order Info: 0184-1 - CBCD Performed By: #### L 100.0100, L501.9520, L500.4050, L501.9910, L501.9985, L501.5200, L500.4100 #### [facility] [address] [place], [address] Erythrocyte distribution width (RBC) [Ratio] 12.8 % Normal 11.6-14.6 [facility] Comment on above: Order Comment: Order Date: 05/19/24 Order Info: 0184- - CBCD Performed By: #### L 100.0100, L501.9520, L500.4050, L501.9910, L501.9985, L501.5200, L500.4100 #### [facility] [address] [place], [place], [id number] (008) Hematocrit (Bld) [Volume fraction] 45.5 % Normal 40-54 [facility] Comment on above: Order Comment: Order Date: 05/19/24 Order Info: 0184- - CBCD Performed By: #### L 100.0100, L501.9520, L500.4050, L501.9910, L501.9985, L501.5200, L500.4100 #### [facility] [address] [place], [place], [id number] (532) Hemoglobin (Bld) [Mass/Vol] 14.7 g/dL Normal 13.0-16.5 [facility] Comment on above: Order Comment: Order Date: 05/19/24 Order Info: 0184-1 - CBCD Performed By: #### L 100.0100, L501.9520, L500.4050, L501.9910, L501.9985, L501.5200, L500.4100 #### [facility] [address] [place], [address] IG% 0.300 Normal 0.0-0.9 [facility] Comment on above: Order Comment: Order Date: 05/19/24 Order Info: 0184-1 - CBCD Result Comment: IG% - Immature Granulocytes (promyelocytes, myelocytes and metamyelocytes) > 1% indicates that a LEFT SHIFT is Present. Performed By: #### L 100.0100, L501.9520, L500.4050, L501.9910, L501.9985, L501.5200, L500.4100 #### [facility] [address] [place], [address] Lymphocytes/100 WBC (Bld) 30.6 % Normal 19-41 [facility] Comment on above: Order Comment: Order Date: 05/19/24 Order Info: 0184-1 - CBCD Performed By: #### L 100.0100, L501.9520, L500.4050, L501.9910, L501.9985, L501.5200, L500.4100 #### [facility] [address] [facility] [place], [address] MCH (RBC) [Entitic mass] 29.6 pg Normal 27.0-32.0 [facility] Comment on above: Order Comment: Order Date: 05/19/24 Order Info: 0184-1 - CBCD Performed By: #### L 100.0100, L501.9520, L500.4050, L501.9910, L501.9985, L501.5200, L500.4100 #### [facility] [address] [facility] [place], [address] MCHC (RBC) [Mass/Vol] 32.3 g/dL Normal 32-36 [facility] Comment on above: Order Comment: Order Date: 05/19/24 Order Info: 0184-1 - CBCD Performed By: #### L 100.0100, L501.9520, L500.4050, L501.9910, L501.9985, L501.5200, L500.4100 #### [facility] [address] [facility] [place], [address] MCV (RBC) [Entitic vol] 91.5 fL Normal 80-94 [facility] Comment on above: Order Comment: Order Date: 05/19/24 Order Info: 0184-1 - CBCD Performed By: #### L 100.0100, L501.9520, L500.4050, L501.9910, L501.9985, L501.5200, L500.4100 #### [facility] [address] [place], [address] Monocytes/100 WBC (Bld) 7.9 % Normal 0-10 [facility] Comment on above: Order Comment: Order Date: 05/19/24 Order Info: 0184-1 - CBCD Performed By: #### L 100.0100, L501.9520, L500.4050, L501.9910, L501.9985, L501.5200, L500.4100 #### [facility] [address] [facility] [place], [address] Neutrophils/100 WBC (Bld) 56.7 % Normal 47-70 [facility] Comment on above: Order Comment: Order Date: 05/19/24 Order Info: 0184-1 - CBCD Performed By: #### L 100.0100, L501.9520, L500.4050, L501.9910, L501.9985, L501.5200, L500.4100 #### [facility] [address] [facility] [place], [address] Nucleated RBC (Bld) [#/Vol] 0 10*3/uL Normal 0-5 [facility] Comment on above: Order Comment: Order Date: 05/19/24 Order Info: 0184-1 - CBCD Performed By: #### L 100.0100, L501.9520, L500.4050, L501.9910, L501.9985, L501.5200, L500.4100 #### [facility] [address] [place], [address] Platelet mean volume (Bld) [Entitic vol] 10.8 fL Normal 6.2-12.0 [facility] Comment on above: Order Comment: Order Date: 05/19/24 Order Info: 0184-1 - CBCD Performed By: #### L 100.0100, L501.9520, L500.4050, L501.9910, L501.9985, L501.5200, L500.4100 #### [facility] [address] [place], [address] Platelets (Bld) [#/Vol] 270 10*3/uL Normal 150-450 [facility] Comment on above: Order Comment: Order Date: 05/19/24 Order Info: 018- - CBCD Performed By: #### L 100.0100, L501.9520, L500.4050, L501.9910, L501.9985, L501.5200, L500.4100 #### [facility] [address] [place], [address] RBC (Bld) [#/Vol] 4.97 10*6/uL Normal 4.6-6.2 [facility] Comment on above: Order Comment: Order Date: 05/19/24 Order Info: 0184- - CBCD Performed By: #### L 100.0100, L501.9520, L500.4050, L501.9910, L501.9985, L501.5200, L500.4100 #### [facility] [address] [place], [address] RDW SD 42.9 fl Normal 35.1-43.9 [facility] Comment on above: Order Comment: Order Date: 05/19/24 Order Info: 0184-1 - CBCD Performed By: #### L 100.0100, L501.9520, L500.4050, L501.9910, L501.9985, L501.5200, L500.4100 #### [facility] [address] [place], [place], [id number] WBC (Bld) [#/Vol] 7.7 10*3/uL Normal 4.4-11.0 [facility] Comment on above: Order Comment: Order Date: 05/19/24 Order Info: 0184-1 - CBCD Performed By: #### L 100.0100, L501.9520, L500.4050, L501.9910, L501.9985, L501.5200, L500.4100 #### [facility] [address] [place], [address] Carbon dioxide measurementOr dered By: Alison Reyes on 05-19-2024 CO2 [Moles/Vol] 23.0 mmol/L 21.0-32.0 [facility] Chloride measurementOrdered By: Alison Reyes on 05-19-2024 Chloride [Moles/Vol] 105 mmol/L 98-107 [facility] Comprehensive Metabolic Prof ilon 05-19-2024 Albumin [Mass/Vol] 3.6 g/dL Normal 3.2-5.0 [facility] Comment on above: Order Comment: Order Date: 05/19/24 Order Info: [id number] - CMP Order Info: [id number] - LIPID Order Info: [id number] - MG Order Info: 3016-3 - TSH Order Info: 2857-1 - PSA Performed By: #### L 100.0100, L501.9520, L500.4050, L501.9910, L501.9985, L501.5200, L500.4100 #### [facility] [address] [place], [address] Albumin/Globulin [Mass ratio] 0.9 {ratio} Normal 0.9-2.4 [facility] Comment on above: Order Comment: Order Date: 05/19/24 Order Info: [id number] - CMP Order Info: [id number] - LIPID Order Info: [id number] - MG Order Info: [id number] - TSH Order Info: 2856-1 - PSA Performed By: #### L 100.0100, L501.9520, L500.4050, L501.9910, L501.9985, L501.5200, L500.4100 #### [facility] [address] [place], [address] ALK P 119 U/L High 45-117 [facility] Comment on above: Order Comment: Order Date: 05/19/24 Order Info: 86-1 - CMP Order Info: [id number] - LIPID Order Info: [id number] - MG Order Info: [id number] - TSH Order Info: 1 - PSA Performed By: #### L 100.0100, L501.9520, L500.4050, L501.9910, L501.9985, L501.5200, L500.4100 #### [facility] [address] [place], [place], [address] ALT [Catalytic activity/Vol] 39 U/L Normal 16-61 [facility] Comment on above: Order Comment: Order Date: 05/19/24 Order Info: 86-1 - CMP Order Info: [id number] - LIPID Order Info: [id number] - MG Order Info: [id number] - TSH Order Info: [id number] - PSA Performed By: #### L 100.0100, L501.9520, L500.4050, L501.9910, L501.9985, L501.5200, L500.4100 #### [facility] [address] [place], [address] AST [Catalytic activity/Vol] 28 U/L Normal 15-37 [facility] Comment on above: Order Comment: Order Date: 05/19/24 Order Info: [id number] - CMP Order Info: [id number] - LIPID Order Info: [id number] - MG Order Info: 3 - TSH Order Info: 2857-1 - PSA Performed By: #### L 100.0100, L501.9520, L500.4050, L501.9910, L501.9985, L501.5200, L500.4100 #### [facility] [address] [place], [place], [phone] Bilirubin [Mass/Vol] 0.40 mg/dL Normal 0.20-1.00 [facility] Comment on above: Order Comment: Order Date: 05/19/24 Order Info: [id number] - CMP Order Info: [id number] - LIPID Order Info: [id number] - MG Order Info: 3 - TSH Order Info: 285- - PSA Result Comment: For patients on eltrombopag therapy, use of Dimension [place] TBIL is not recommended. Performed By: #### L 100.0100, L501.9520, L500.4050, L501.9910, L501.9985, L501.5200, L500.4100 #### [facility] [address] [place], [place], [phone] BUN/CRE 18.7 RATIO Normal 10-20 [facility] Comment on above: Order Comment: Order Date: 05/19/24 Order Info: 785- - CMP Order Info: [id number] - LIPID Order Info: [id number] - MG Order Info: 3 - TSH Order Info: 2857-1 - PSA Performed By: #### L 100.0100, L501.9520, L500.4050, L501.9910, L501.9985, L501.5200, L500.4100 #### [facility] [address] [place], [place], [id number] CA,Total 9.6 mg/dL Normal 8.5-10.1 [facility] Comment on above: Order Comment: Order Date: 05/19/24 Order Info: 0786-1 - CMP Order Info: [id number] - LIPID Order Info: [id number] - MG Order Info: 3015-3 - TSH Order Info: 2857-1 - PSA Performed By: #### L 100.0100, L501.9520, L500.4050, L501.9910, L501.9985, L501.5200, L500.4100 #### [facility] [address] [place], [address] Chloride [Moles/Vol] 105 mmol/L Normal 98-107 [facility] Comment on above: Order Comment: Order Date: 05/19/24 Order Info: 86-1 - CMP Order Info: [id number] - LIPID Order Info: [id number] - MG Order Info: 3016-3 - TSH Order Info: 2857-1 - PSA Performed By: #### L 100.0100, L501.9520, L500.4050, L501.9910, L501.9985, L501.5200, L500.4100 #### [facility] [address] [place], [place], [phone]) CO2 [Moles/Vol] 23.0 mmol/L Normal 21.0-32.0 [facility] Comment on above: Order Comment: Order Date: 05/19/24 Order Info: 785-1 - CMP Order Info: [id number] - LIPID Order Info: [id number] - MG Order Info: 3016-3 - TSH Order Info: 2857-1 - PSA Performed By: #### L 100.0100, L501.9520, L500.4050, L501.9910, L501.9985, L501.5200, L500.4100 #### [facility] [address] [place], [address] Creatinine [Mass/Vol] 0.91 mg/dL Normal 0.70-1.30 [facility] Comment on above: Order Comment: Order Date: 05/19/24 Order Info: 0786-1 - CMP Order Info: [id number] - LIPID Order Info: [id number] - MG Order Info: 3016-3 - TSH Order Info: 2857-1 - PSA Result Comment: The validity of the calculated GFR GFRAA in patients over 70 years has not been determined. Clinical correlation is essential. Performed By: #### L 100.0100, L501.9520, L500.4050, L501.9910, L501.9985, L501.5200, L500.4100 #### [facility] [address] [place], [place], [address] (611) EST GFR - AA 111 mL/min Normal >60 [facility] Comment on above: Order Comment: Order Date: 05/19/24 Order Info: 86-1 - CMP Order Info: [id number] - LIPID Order Info: [id number] - MG Order Info: 3016-3 - TSH Order Info: 2857-1 - PSA Result Comment: Afri can [place] GFR Calc Performed By: #### L 100.0100, L501.9520, L500.4050, L501.9910, L501.9985, L501.5200, L500.4100 #### [facility] [address] [place], [place], [phone]) GAP 8 Normal 5-15 [facility] Comment on above: Order Comment: Order Date: 05/19/24 Order Info: 785-1 - CMP Order Info: [id number] - LIPID Order Info: [id number] - MG Order Info: 3016-3 - TSH Order Info: 2856-1 - PSA Performed By: #### L 100.0100, L501.9520, L500.4050, L501.9910, L501.9985, L501.5200, L500.4100 #### [facility] [address] [place], [place], [phone] GFR/1.73 sq M.predicted among non-blacks MDRD (S/P/Bld) [Vol rate/Area] 92 mL/min/{1.73_m2} Normal >60 [facility] Comment on above: Order Comment: Order Date: 05/19/24 Order Info: 86-1 - CMP Order Info: [id number] - LIPID Order Info: [id number] - MG Order Info: 3016-3 - TSH Order Info: 2857-1 - PSA Result Comment: Non- GFR Calc Performed By: #### L 100.0100, L501.9520, L500.4050, L501.9910, L501.9985, L501.5200, L500.4100 #### [facility] [address] [place], [address] Globulin (S) [Mass/Vol] 4.1 g/dL Normal 2.2-4.2 [facility] Comment on above: Order Comment: Order Date: 05/19/24 Order Info: 0786-1 - CMP Order Info: [id number] - LIPID Order Info: [id number] - MG Order Info: 3016-3 - TSH Order Info: 2856-04 - PSA Performed By: #### L 100.0100, L501.9520, L500.4050, L501.9910, L501.9985, L501.5200, L500.4100 #### [facility] [address] [place], [address] Glucose [Mass/Vol] 150 mg/dL High 74-106 [facility] Comment on above: Order Comment: Order Date: 05/19/24 Order Info: 0786- - CMP Order Info: [id number] - LIPID Order Info: [id number] - MG Order Info: 3015-3 - TSH Order Info: 2856-04 - PSA Result Comment: Fast ing Glucose result greater than or equal to 126 mg/dL suggests DIABETES MELLITUS per A.D.A. criteria. Performed By: #### L 100.0100, L501.9520, L500.4050, L501.9910, L501.9985, L501.5200, L500.4100 #### [facility] [address] [place], [address] Potassium [Moles/Vol] 4.3 mmol/L Normal 3.5-5.1 [facility] Comment on above: Order Comment: Order Date: 05/19/24 Order Info: 0786-1 - CMP Order Info: [id number] - LIPID Order Info: [id number] - MG Order Info: 3 - TSH Order Info: 2856-1 - PSA Performed By: #### L 100.0100, L501.9520, L500.4050, L501.9910, L501.9985, L501.5200, L500.4100 #### [facility] [address] [place], [place], [address] (100) Sodium [Moles/Vol] 136 mmol/L Normal 136-145 [facility] Comment on above: Order Comment: Order Date: 05/19/24 Order Info: 86-1 - CMP Order Info: [id number] - LIPID Order Info: [id number] - MG Order Info: 3 - TSH Order Info: 2856-1 - PSA Performed By: #### L 100.0100, L501.9520, L500.4050, L501.9910, L501.9985, L501.5200, L500.4100 #### [facility] [address] [place], [place], [phone] T PROT 7.7 g/dL Normal 6.4-8.2 [facility] Comment on above: Order Comment: Order Date: 05/19/24 Order Info: 0786-1 - CMP Order Info: [id number] - LIPID Order Info: [id number] - MG Order Info: 3 - TSH Order Info: 2856-1 - PSA Performed By: #### L 100.0100, L501.9520, L500.4050, L501.9910, L501.9985, L501.5200, L500.4100 #### [facility] [address] [place], [place], [id number] Urea nitrogen [Mass/Vol] 17 mg/dL Normal 7-18 [facility] Comment on above: Order Comment: Order Date: 05/19/24 Order Info: 0786-1 - CMP Order Info: [id number] - LIPID Order Info: [id number] - MG Order Info: 3 - TSH Order Info: 2857-1 - PSA Performed By: #### L 100.0100, L501.9520, L500.4050, L501.9910, L501.9985, L501.5200, L500.4100 #### [facility] [place], [address] Eosinophil percentageOrdered By: Alison Reyes on 05-19-2024 Eosinophils/100 WBC (Bld) 3.8 % 0-5 [facility] Erythrocyte distribution wid th ratioOrdered By: Alison Reyes on 05-19-2024 Erythrocyte distribution width (RBC) [Ratio] 12.8 % 11.6-14.6 [facility] Erythrocyte distribution wid th standard deviationOrdered By: Alison Reyes on 05-19-2024 Erythrocyte distribution width (RBC) [Entitic vol] 42.9 fL 35.1-43.9 [facility] Erythrocyte distribution width (RBC) [Ratio] 42.9 fl 35.1-43.9 [facility] Estimated glomerular filtrat ion rate (GFR) AmericanOrdered By: Alison Reyes on 05-19-2024 Estimated GFR (MDRD) Amer 111 mL/min >60 [facility] Comment on above: GFR Calc Glomerular filtration rate ( GFR) estimationOrdered By: Alison Reyes on 05-19-2024 Estimated GFR (MDRD) Non-Af Amer 92 mL/min >60 [facility] Comment on above: Non- GFR Calc GFR/1.73 sq M.predicted among non-blacks MDRD (S/P/Bld) [Vol rate/Area] 92 mL/min/{1.73_m2} >60 [facility] Comment on above: Non- GFR Calc Glucose measurementOrdered B y: Alison Reyes on 05-19-2024 Glucose [Mass/Vol] 150 mg/dL High 74-106 [facility] Comment on above: Fasting Glucose resu lt greater than or equal to 126 mg/dL suggests DIABETES MELLITUS per A.D.A. criteria. Hematocrit Auto (Bld) [Volum e fraction]Ordered By: Alison Reyes on 05-19-2024 Hematocrit (Bld) [Volume fraction] 45.5 % 40-54 [facility] Hemoglobin A1con 05-19-2024 HbA1c (Bld) [Mass fraction] 7.7 % High 3.8-5.6 [facility] Comment on above: Order Comment: Order Date: 05/19/24 Order Info: [id number] - A1C Result Comment: Norm al < 5.7 % Prediabetic 5.7 - 6.4 % Diabetic >or= 6.5 % Please note range changes. Performed By: #### L 100.0100, L501.9520, L500.4050, L501.9910, L501.9985, L501.5200, L500.4100 #### [facility] [place], [address] Hemoglobin A1c percentageOrd ered By: Alison Reyes on 05-19-2024 HbA1c (Bld) [Mass fraction] 7.7 % High 3.8-5.6 [facility] Comment on above: Normal < 5.7 % Predi abetic 5.7 - 6.4 % Diabetic >or= 6.5 % Please note range changes. Hemoglobin measurementOrdere d By: Alison Reyes on 05-19-2024 Hemoglobin (Bld) [Mass/Vol] 14.7 g/dL 13.0-16.5 [facility] High density lipoprotein (HD L) measurementOrdered By: Alison Reyes on 05-19-2024 Cholesterol in HDL [Mass/Vol] 56 mg/dL >40 [facility] Comment on above: The drugs N-Acetylcy steine and Metamizole may falsely depress this assay. Reference Range HDL <40 mg/dL Low HDL Cholesterol HDL >or= 60 mg/dL High HDL Cholesterol Immature granulocytes/100 WB C Auto (Bld)Ordered By: Alison Reyes on 05-19-2024 Immature granulocytes/100 WBC (Bld) 0.300 % 0.0-0.9 [facility] Comment on above: IG% - Immature Granu locytes (promyelocytes, myelocytes and metamyelocytes) > 1% indicates that a LEFT SHIFT is Present. Laboratory - Chemistry and C hemistry - challengeOrdered By: Alison Reyes on 05-19-2024 AST [Catalytic activity/Vol] 28 U/L 15-37 [facility] Lipid Profileon 05-19-2024 Cholesterol [Mass/Vol] 160 mg/dL Normal 200 [facility] Comment on above: Order Comment: Order Date: 05/19/24 Order Info: 0786- - CMP Order Info: [id number] - LIPID Order Info: [id number] - MG Order Info: 3 - TSH Order Info: 2856-04 - PSA Result Comment: <200 mg/dL Desirable 200-240 mg/dL Borderline >240 mg/dL High Risk Performed By: #### L 100.0100, L501.9520, L500.4050, L501.9910, L501.9985, L501.5200, L500.4100 #### [facility] [address] [place], [address] Cholesterol in HDL [Mass/Vol] 56 mg/dL Normal [facility] Comment on above: Order Comment: Order Date: 05/19/24 Order Info: 07 - CMP Order Info: - LIPID Order Info: [id number] - MG Order Info: 3015-06 - TSH Order Info: 2856-04 - PSA Result Comment: The drugs N-Acetylcysteine and Metamizole may falsely depress this assay. Reference Range HDL <40 mg/dL Low HDL Cholesterol HDL >or= 60 mg/dL High HDL Cholesterol Performed By: #### L 100.0100, L501.9520, L500.4050, L501.9910, L501.9985, L501.5200, L500.4100 #### [facility] [address] [place], [address] Cholesterol in LDL [Mass/Vol] 61 mg/dL Normal 0-130 [facility] Comment on above: Order Comment: Order Date: 05/19/24 Order Info: 0786- - CMP Order Info: [id number] - LIPID Order Info: [id number] - MG Order Info: 3 - TSH Order Info: [id number] - PSA Performed By: #### L 100.0100, L501.9520, L500.4050, L501.9910, L501.9985, L501.5200, L500.4100 #### [facility] [address] [place], [address] (603) Cholesterol in VLDL [Mass/Vol] 43 mg/dL High 5-40 [facility] Comment on above: Order Comment: Order Date: 05/19/24 Order Info: 0786-1 - CMP Order Info: [id number] - LIPID Order Info: [id number] - MG Order Info: 3016-3 - TSH Order Info: 2857-1 - PSA Performed By: #### L 100.0100, L501.9520, L500.4050, L501.9910, L501.9985, L501.5200, L500.4100 #### [facility] [address] [place], [address] (584) Triglyceride [Mass/Vol] 213 mg/dL High [facility] Comment on above: Order Comment: Order Date: 05/19/24 Order Info: 0786-1 - CMP Order Info: [id number] - LIPID Order Info: [id number] - MG Order Info: 3016-3 - TSH Order Info: 2857-1 - PSA Result Comment: The drugs N-Acetylcysteine and Metamizole may falsely depress this assay. Serum Triglycerides Reference Interval Normal <150 mg/dL Borderline high 150 - 199 mg/dL High 200 - 499 mg/dL Very High > or = 500 mg/dL Performed By: #### L 100.0100, L501.9520, L500.4050, L501.9910, L501.9985, L501.5200, L500.4100 #### [facility] [address] [place], [address] Low density lipoprotein (LDL ) cholesterol measurementOrdered By: Alison Reyes on 05-19-2024 Cholesterol in LDL [Mass/Vol] 61 mg/dL 0-130 [facility] Lymphocytes Auto (Unsp spec) [#/Vol]Ordered By: Alison Reyes on 05-19-2024 Lymphocytes (Bld) [#/Vol] 2.35 10*3/uL 0.83-4.51 [facility] Lymphocytes/100 WBC Auto (Un sp spec)Ordered By: Alison Reyes on 05-19-2024 Lymphocytes/100 WBC (Bld) 30.6 % 19-41 [facility] MCV (mean corpuscular volume ) determinationOrdered By: Alison Reyes on 05-19-2024 MCV (RBC) [Entitic vol] 91.5 fL 80-94 [facility] Magnesiumon 05-19-2024 Magnesium [Mass/Vol] 2.2 mg/dL Normal 1.6-2.6 [facility] Comment on above: Order Comment: Order Date: 05/19/24Order Info: 0786-1 - CMPOrder Info: [id number] - LIPIDOrder Info: [id number] - MGOrder Info: 3016-3 - TSHOrder Info: 2857-1 - PSA Performed By: #### L 100.0100, L501.9520, L500.4050, L501.9910, L501.9985, L501.5200, L500.4100 ####[facility] [address] [facility] [place], [place], [id number] Magnesium measurementOrdered By: Alison Reyes on 05-19-2024 Magnesium [Mass/Vol] 2.2 mg/dL 1.6-2.6 [facility] Mean corpuscular hemoglobin (MCH) determinationOrdered By: Alison Reyes on 05-19-2024 MCH (RBC) [Entitic mass] 29.6 pg 27.0-32.0 [facility] Mean corpuscular hemoglobin concentration (MCHC) determinationOrdered By: Alison Reyes on 05-19-2024 MCHC (RBC) [Mass/Vol] 32.3 g/dL 32-36 [facility] Mean platelet volume determi nationOrdered By: Alison Reyes on 05-19-2024 Platelet mean volume (Bld) [Entitic vol] 10.8 fL 6.2-12.0 [facility] Monocyte percentageOrdered B y: Alison Reyes on 01-28-2025 Monocytes/100 WBC (Bld) 7.9 % 0-10 [facility] Neutrophil percentageOrdered By: Alison Reyes on 05-19-2024 Neutrophils/100 WBC (Bld) 56.7 % 47-70 [facility] Nucleated red blood cell per centageOrdered By: Alison Reyes on 05-19-2024 Nucleated RBC/100 WBC (Bld) [Ratio] 0 % 0-5 [facility] PSA,Total - Annual Screenon 05-19-2024 PSA,TOT SCREEN 0.20 ng/mL Normal 0.00-4.00 [facility] Comment on above: Order Comment: Order Date: 05/19/24Order Info: 0786-1 - CMPOrder Info: [id number] - LIPIDOrder Info: [id number] - MGOrder Info: 3016-3 - TSHOrder Info: 2857-1 - PSA Result Comment: This test was performed using the TPSA assay method for the [employer] chemistry system. Values obtained with different assay methods cannot be used interchangably. When changing PSA assays in the course of monitoring a patient, additional sequential testing should be carried out to confirm baseline values. Performed By: #### L 100.0100, L501.9520, L500.4050, L501.9910, L501.9985, L501.5200, L500.4100 ####[facility] [address] [place], [address] Platelet countOrdered By: Sarah Reyes on 05-19-2024 Platelets (Bld) [#/Vol] 270 10*3/uL 150-450 [facility] Potassium measurementOrdered By: Alison Reyes on 05-19-2024 Potassium [Moles/Vol] 4.3 mmol/L 3.5-5.1 [facility] RBC Auto (Bld) [#/Vol]Ordere d By: Alison Reyes on 05-19-2024 RBC (Bld) [#/Vol] 4.97 10*6/uL 4.6-6.2 [facility] Screening prostate specific antigen (PSA) measurementOrdered By: Alison Reyes on 05-19-2024 Prostate Specific Antigen Screen 0.20 ng/mL 0.00-4.00 [facility] Comment on above: This test was perfor med using the TPSA assay method for the[employer] chemistry system. Values obtained with differentassay methods cannot be used interchangably.When changing PSA assays in the course of monitoring apatient, additional sequential testing should be carriedout to confirm baseline values. Serum anion gap measurementO rdered By: Alison Reyes on 05-19-2024 Anion gap [Moles/Vol] 8 mmol/L 5-15 [facility] Serum globulin measurementOr dered By: Alison Reyes on 05-19-2024 Globulin (S) [Mass/Vol] 4.1 g/dL 2.2-4.2 [facility] Serum or plasma alanine hitchcock otransferase (ALT) measurementOrdered By: Alison Reyes on 05-19-2024 ALT [Catalytic activity/Vol] 39 U/L 16-61 [facility] Serum or plasma albumin carmelita urement (mass/volume)Ordered By: Alison Reyes on 05-19-2024 Albumin [Mass/Vol] 3.6 g/dL 3.2-5.0 [facility] Serum or plasma alkaline regan sphatase measurementOrdered By: Alison Reyes on 05-19-2024 ALP [Catalytic activity/Vol] 119 U/L High 45-117 [facility] Serum or plasma calcium carmelita urement (mass/volume)Ordered By: Alison Reyes on 05-19-2024 Calcium [Mass/Vol] 9.6 mg/dL 8.5-10.1 [facility] Serum or plasma cholesterol measurement (mass/volume)Ordered By: Alison Reyes on 05-19-2024 Cholesterol [Mass/Vol] 160 mg/dL <200 [facility] Comment on above: <200 mg/dL Desirable 200-240 mg/dL Borderline >240 mg/dL High Risk Serum or plasma creatinine m easurement (mass/volume)Ordered By: Alison Reyes on 05-19-2024 Creatinine [Mass/Vol] 0.91 mg/dL 0.70-1.30 [facility] Comment on above: The validity of the calculated GFR & GFRAA in patients over 70 years has not been determined. Clinical correlation is essential. Serum or plasma thyroid stim ulating hormone (TSH) measurement (units/volume)Ordered By: Alison Reyes on 05-19-2024 TSH Qn 9.090 uIU/mL High 0.358-3.740 [facility] Serum or plasma urea nitroge n measurement (mass/volume)Ordered By: Alison Reyes on 05-19-2024 Urea nitrogen [Mass/Vol] 17 mg/dL 7-18 [facility] Sodium levelOrdered By: Alison Reyes on 05-19-2024 Sodium [Moles/Vol] 136 mmol/L 136-145 [facility] TSH QnOrdered By: Alison antony on 05-19-2024 Thyroid Stimulating Hormone (TSH) 9.090 uIU/mL High 0.358-3.740 [facility] Thyroid Stim Hormone (TSH)on 05-19-2024 TSH 9.090 uIU/mL High 0.358-3.740 [facility] Comment on above: Order Comment: Order Date: 05/19/24Order Info: 0786-1 - CMPOrder Info: [id number] - LIPIDOrder Info: [id number] - MGOrder Info: 3016-3 - TSHOrder Info: 2857-1 - PSA Performed By: #### L 100.0100, L501.9520, L500.4050, L501.9910, L501.9985, L501.5200, L500.4100 ####[facility] [address] [place], [place], [id number] Total proteinOrdered By: Tim Reyes on 05-19-2024 Protein [Mass/Vol] 7.7 g/dL 6.4-8.2 [facility] Triglycerides measurementOrd ered By: Alison Reyes on 05-19-2024 Triglyceride [Mass/Vol] 213 mg/dL High <199 [facility] Comment on above: The drugs N-Acetylcy steine and Metamizole may falsely depress this assay.Serum Triglycerides Reference Interval Normal <150 mg/dL Borderline high 150 - 199 mg/dL High 200 - 499 mg/dL Very High > or = 500 mg/dL Very low density lipoprotein (VLDL) cholesterol measurementOrdered By: Alison Reyes on 05-19-2024 Very low density lipoprotein (VLDL) cholesterol measurement 43 mg/dL High 5-40 [facility] VLDL Cholesterol 43 mg/dL High -40 [facility] White blood cell (WBC) count Ordered By: Alison Reyes on 05-19-2024 WBC (Bld) [#/Vol] 7.7 10*3/uL 4.4-11.0 [facility] Emergency Department Summary on 05-15-2024 Emergency Department Summary [facility] Medical Records Department [address] [place] [address] Emergency Department Summary 05/15/24 MR#: [id number] Acct: [id number] Name: OK GOMEZ Rep #: [id number] : 1965 59 From: Tamy Tanner DO PCP: Dr. Alison Reyes MD Status:DEP ER Location: ED HPI History of Present Illness Chief Complaint: Lower Extremity Injury Informant: patient Narrative Narrative: Patient is a 59 year old male with history of PSA, HTN, DM2, hypothyroidism and chronic pain (follows with pain management) presenting for atraumatic left knee pain. Patient states the pain has been going on for the past week. Denies any injury. Notes he has arthritis in his right knee. Denies any new activities. Denies any popping. Denies any numbness in his leg. Does feel like the left lower leg is little bit more swollen. No other complaints or concerns reported at this time. Has not take anything for pain prior to arrival. [facility] Medical History Morbid obesity Hyperlipidemia Supraventricular tachycardia Abscess of head Lumbar radiculopathy Low back pain Osteoarthritis of right knee Right knee pain MRSA (methicillin resistant staph aureus) culture positive Abscess of left thigh Abscess COVID-19 SVT (supraventricular tachycardia) Type 2 diabetes mellitus Anxiety and depression RANCHO on CPAP Essential hypertension Anxiety Diabetes Hypothyroidism Home Medications ???Medication ???Instructions ???Recorded ???Last Taken ???Type levothyroxine 200 mcg tablet 200 mcg PO DAILY 07/25/20 Unknown History metformin 500 mg tablet 1,000 mg PO BID 07/25/20 Unknown History paroxetine HCl 40 mg tablet 40 mg PO DAILY 07/25/20 Unknown History rosuvastatin 40 mg tablet 40 mg PO QHS 07/25/20 Unknown History aspirin 81 mg tablet,delayed 81 mg PO DAILY 09/27/20 Unknown History release multivitamin 1 cap DAILY 09/27/20 Unknown History celecoxib 200 mg capsule (Celebrex) 200 mg PO BID #30 caps 01/03/23 Unknown Rx amlodipine 10 mg tablet 10 mg PO QDAY 03/09/24 Unknown History buspirone 10 mg tablet 10 mg PO BID 03/09/24 Unknown History insulin glargine U-300 conc 300 46 unit subcut QDAY 03/09/24 Unknown History unit/mL (3 mL) subcutaneous pen (TouPrint[employer].ruo Max U-300 SoloStar) levothyroxine 300 mcg tablet 300 mcg PO QDAY 03/09/24 Unknown History lisinopril 20 mg tablet 40 mg PO DAILY 03/09/24 Unknown History metoprolol succinate 50 mg 25 mg PO .COMPLEX 03/09/24 Unknown History tablet,extended release 24 hr semaglutide 0.25 mg or 0.5 mg (2 2 mg subcut QWEEK 03/09/24 Unknown History mg/1.5 mL) subcutaneous pen injector (Ozempic) trazodone 100 mg tablet 100 mg PO QDAY 03/09/24 Unknown History doxycycline hyclate 100 mg capsule 100 mg PO BID #20 caps 04/21/24 Unknown Rx Allergy/AdvReac Type Severity Reaction Status Date / Time escitalopram (From Lexapro) AdvReac Rash Verified 05/15/24 17:18 Family History Father Hypertension Mother Myocardial infarction Diabetes Hypertension Sister Diabetes Surgical History History of hip surgery Social History household members: none Smoking Status: Never smoker alcohol intake: never substance use type: does not use caffeine: Yes Type: carbonated beverages Number of servings: 1 and tea Number of servings: 3 ROS ROS ED Constitutional Constitutional ED: Denies chills or fever(s) Respiratory/Chest Respiratory/Chest: Denies dyspnea Musculoskeletal Musculoskeletal: Reports other Details: Left knee pain Integumentary Denies rash Neurologic Neurologic: Denies paresthesias or weakness Hematologic/Lymphatic Hematologic/Lymphatic: Denies easy bleeding or easy bruising EXAM Physical Exam Const Vital Signs: 05/15/24 17:18 05/15/24 21:12 Temperature 98.2 F 98.2 F Temperature Source Temporal Pulse Rate 72 72 Respiratory Rate 22 H 22 H Blood Pressure 172/87 H 160/80 H Blood Pressure Mean 115 106 Pulse Ox 98 98 Oxygen Delivery Method Room Air Positive well nourished, well developed and obese General Appearance ED: well developed and NAD Nutritional Appearance: obese Resp normal respiratory effort Cardio regular rate and regular rhythm Cardio Narrative: 2+ DP pulses Extremity Extremity Narrative: No deformity. Slight swelling noted of the left lower extremity compared to the right. No significant effusion of the left knee appreciated. Normal extensor mechanism. Mild pain with range of motion. No pinpoint tenderness to palpation. No short arc range of motion pain. No palpable cords. Lower extremity co (more content not included)... Normal [facility] Knee 4 or More Viewson 05-15 Knee 4 or More Views [facility] Imaging Services [address], [place] [address] Knee 4 or More Views MR#: [id number] Acct: [id number] Name: OK GOMEZ Rep #: [id number] : 1965 M 59 From: Josue Laguerre MD PCP: Dr. Alison Reyes MD Status: [facility] ER Study: Knee 4 or More Views Date of Exam: 05/15/24 Exam# [id number] Ordering Dr: [place] [id number] STUDY: X-RAY - LEFT KNEE REASON FOR EXAM: Male, 59 years old. Injury/Pain TECHNIQUE: 4 view(s) of the knee. COMPARISON: None. FINDINGS: Normal visualized distal femur. Normal visualized proximal tibia and fibula. Normal proximal tibiofibular articulation. Mild degree narrowed medial femorotibial compartment. Normal lateral femorotibial compartment. Narrowed patellofemoral articulation. The soft tissue structures are unremarkable. RAD/Knee 4 or More Views IMPRESSION: . Degenerative changes. No acute fracture or dislocation Electronically Signed: Josue Laguerre MD at 19:02 EST Reading Location ID and State: [address] [place] [address] Tel , Service support , CC: Dr. Tamy Tanner DO; Dr. Alison Reyes MD Dish Technician: Signed Normal [facility] Venous Duplex Imag/Limited/U nion 05-15-2024 Venous Duplex Imag/Limited/Uni [facility] Imaging Services [address] [place] [address] Venous Duplex Imag/Limited/Uni MR#: [id number] Acct: [id number] Name: OK GOMEZ Rep #: [id number] : 1965 M 59 From: Josue Laguerre MD PCP: Dr. Alison Reyes MD Status: REG ER Study: Venous Duplex Imag/Limited/Uni Date of Exam: 0 05/15/24 Exam# [id number] Ordering [place]: [place] [id number] STUDY: VENOUS DOPPLER ULTRASOUND - LEFT LOWER EXTREMITY REASON FOR EXAM: Male, 59 years old. LT KNEE PAIN TECHNIQUE: Ultrasound evaluation of the deep vein system to include lo-scale imaging and compression was performed. Lo-scale imaging and Doppler sonographic evaluation, including duplex spectral analysis and qualitative color flow sonography, was performed. COMPARISON: None. FINDINGS: Common Femoral Vein: Normal compression, spontaneity and augmentation. Normal color Doppler. Common Femoral Vein/Greater Saphenous Junction: Normal compression, spontaneity and augmentation. Normal color Doppler. Deep Femoral Vein: Normal compression, spontaneity and augmentation. Normal color Doppler. Femoral Proximal: Normal compression, spontaneity and augmentation. Normal color Doppler. Femoral Middle: Normal compression, spontaneity and augmentation. Normal color Doppler. Femoral Distal: Normal compression, spontaneity and augmentation. Normal color Doppler. Popliteal Vein: Normal compression, spontaneity and augmentation. Normal color Doppler. Posterior Tibial Vein: Normal compression, spontaneity and augmentation. Normal color Doppler. Peroneal Vein: Normal compression, spontaneity and augmentation. Normal color Doppler. US/Venous Duplex Imag/Limited/Uni IMPRESSION: Normal venous Doppler ultrasound of the lower extremity. Electronically Signed: Josue Laguerre MD at 18:54 EST , CC: Dr. Tamy Tanner DO; Dr. Alison Reyes MD Dish Technician: Signed Normal [facility] Surgery Visit Reporton 05-13 Surgery Visit Report [facility] [address] [facility] [place] [address] OFFICE VISIT Date of Service: 05/13/24 MR#: [id number] Acct: [id number] Name: OK GOMEZ Rep #: [id number] : 1965 Provider: CONSTANTINE ngo Age/Sex: 59/M Location: [facility] Status: Signed Intake Vital Signs 01/31/24 17:48 Height 5 ft 9 in Intake Visit Reasons: SORE ON LEG Chief Complaint: abscess on leg 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 Is patient in pain?: Yes (posterior thigh) Allergies escitalopram (From Lexapro) Adverse Reaction (Verified 05/13/24 14:49) Rash Medications ???Medication ???Instructions ???Recorded ???Confirmed ???Type levothyroxine 200 mcg tablet 200 mcg PO DAILY 07/25/20 05/13/24 History metformin 500 mg tablet 1,000 mg PO BID 07/25/20 05/13/24 History paroxetine HCl 40 mg tablet 40 mg PO DAILY 07/25/20 05/13/24 History rosuvastatin 40 mg tablet 40 mg PO QHS 07/25/20 05/13/24 History aspirin 81 mg tablet,delayed 81 mg PO DAILY 09/27/20 05/13/24 History release multivitamin 1 cap DAILY 09/27/20 05/13/24 History celecoxib 200 mg capsule (Celebrex) 200 mg PO BID #30 caps 01/03/23 05/13/24 Rx amlodipine 10 mg tablet 10 mg PO QDAY 03/09/24 05/13/24 History buspirone 10 mg tablet 10 mg PO BID 03/09/24 05/13/24 History insulin glargine U-300 conc 300 46 unit subcut QDAY 03/09/24 05/13/24 History unit/mL (3 mL) subcutaneous pen (Toujeo Max U-300 SoloStar) levothyroxine 300 mcg tablet 300 mcg PO QDAY 03/09/24 05/13/24 History lisinopril 20 mg tablet 40 mg PO DAILY 03/09/24 05/13/24 History metoprolol succinate 50 mg 25 mg PO .COMPLEX 03/09/24 05/13/24 History tablet,extended release 24 hr semaglutide 0.25 mg or 0.5 mg (2 2 mg subcut QWEEK 03/09/24 05/13/24 History mg/1.5 mL) subcutaneous pen injector ([employer]) trazodone 100 mg tablet 100 mg PO QDAY 03/09/24 05/13/24 History doxycycline hyclate 100 mg capsule 100 mg PO BID #20 caps 04/21/24 05/13/24 Rx PFSH Medical History Morbid obesity Hyperlipidemia Supraventricular tachycardia Abscess of head Lumbar radiculopathy Low back pain Osteoarthritis of right knee Right knee pain MRSA (methicillin resistant staph aureus) culture positive Abscess of left thigh Abscess COVID-19 SVT (supraventricular tachycardia) Type 2 diabetes mellitus Anxiety and depression RANCHO on CPAP Essential hypertension Anxiety Diabetes Hypothyroidism Surgical History History of hip surgery Family History Father Hypertension Mother Myocardial infarction Diabetes Hypertension Sister Diabetes Social History household members: none Smoking Status: Never smoker alcohol intake: never substance use type: does not use caffeine: Yes Type: carbonated beverages Number of servings: 1 and tea Number of servings: 3 HPI HPI HPI: Patient is a 59 y/o M I am following for possible new abscess on his left posterior thigh. He was concerned that may be one of his previous abscess sites was open. He denies any fever, drainage. He is not currently on any antibiotics. He does have a history of MRSA. Exam Skin Other: Left posterior thigh- multiple completely healed previous incisions. There is an incision medially that had a thick circular scab noted. This was trimmed down to the skin. Bacitracin ointment was applied followed by an op-site. No new or recurrent abscess is noted. Assessment and Plan Assessment and Plan (1) Healing wound: Status: Acute Plan: Recommend leaving the dressing in place until Saturday Return Saturday for a bandage change and Saturday Continue to place Bacitracin and an op-site over top of the scabbed area Coding Level of Care Code Off vis,est,level 3 Diagnoses Healing wound T14.90XD 05/14/24 1455 Date Edna Cool Signature: Date (if applicable) CC: Normal [facility] Surgery Visit Reporton 04-06 Surgery Visit Report [facility] [address] [place] [address] [address] [place] [address] OFFICE VISIT Date of Service: 04/06/24 MR#: [id number] Acct: [id number] Name: OK GOMEZ Rep #: [id number] : 1965 Provider: CONSTANTINE ngo Age/Sex: 58/M Location: [facility] Status: Signed Intake Vital Signs 01/31/24 17:48 Height 5 ft 9 in Intake Visit Reasons: WOUND CHECK Chief Complaint: abscess on leg, painful/irritated 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 Is patient in pain?: No Allergies escitalopram (From [employer]) Adverse Reaction (Verified 04/06/24 12:56) Rash Medications ???Medication ???Instructions ???Recorded ???Confirmed ???Type levothyroxine 200 mcg tablet 200 mcg PO DAILY 07/25/20 04/06/24 History metformin 500 mg tablet 1,000 mg PO BID 07/25/20 04/06/24 History paroxetine HCl 40 mg tablet 40 mg PO DAILY 07/25/20 04/06/24 History rosuvastatin 40 mg tablet 40 mg PO QHS 07/25/20 04/06/24 History aspirin 81 mg tablet,delayed 81 mg PO DAILY 09/27/20 04/06/24 History release multivitamin 1 cap DAILY 09/27/20 04/06/24 History celecoxib 200 mg capsule (Celebrex) 200 mg PO BID #30 caps 01/03/23 04/06/24 Rx amlodipine 10 mg tablet 10 mg PO QDAY 03/09/24 04/06/24 History buspirone 10 mg tablet 10 mg PO BID 03/09/24 04/06/24 History insulin glargine U-300 conc 300 46 unit subcut QDAY 03/09/24 04/06/24 History unit/mL (3 mL) subcutaneous pen (Toujeo Max U-300 SoloStar) levothyroxine 300 mcg tablet 300 mcg PO QDAY 03/09/24 04/06/24 History lisinopril 20 mg tablet 40 mg PO DAILY 03/09/24 04/06/24 History metoprolol succinate 50 mg 25 mg PO .COMPLEX 03/09/24 04/06/24 History tablet,extended release 24 hr semaglutide 0.25 mg or 0.5 mg (2 2 mg subcut QWEEK 03/09/24 04/06/24 History mg/1.5 mL) subcutaneous pen injector (Ozempic) trazodone 100 mg tablet 100 mg PO QDAY 03/09/24 04/06/24 History doxycycline hyclate 100 mg capsule 100 mg PO BID #20 caps 04/06/24 04/06/24 Rx Subjective Details: Patient is a 58 y/o M I am following s/p incision and drainage by Dr. Manzanares on 03/17/24. Patient tolerated the procedure well. He notes some soreness to the area. He is completed with his antibiotics. He has a history of MRSA in previous wound cultures. Objective Details: Left posterior thigh- open wound with granulation tissue noted. There us a small pimple-like structure just above the open wound. wound was not covered by patient. Open wound was covered with an op-site. No surrounding erythema noted. No active drainage noted. Coding Level of Care Code Global Post Op Diagnoses Abscess of thigh L02.419 [facility] Medical History Morbid obesity Hyperlipidemia Supraventricular tachycardia Abscess of head Lumbar radiculopathy Low back pain Osteoarthritis of right knee Right knee pain MRSA (methicillin resistant staph aureus) culture positive Abscess of left thigh Abscess COVID-19 SVT (supraventricular tachycardia) Type 2 diabetes mellitus Anxiety and depression RANCHO on CPAP Essential hypertension Anxiety Diabetes Hypothyroidism Surgical History History of hip surgery Family History Father Hypertension Mother Myocardial infarction Diabetes Hypertension Sister Diabetes Social History household members: none Smoking Status: Never smoker alcohol intake: never substance use type: does not use caffeine: Yes Type: carbonated beverages Number of servings: 1 and tea Number of servings: 3 Assessment and Plan (No Qualifiers) Assessment and Plan (1) Abscess of thigh: Status: Acute Plan: Continue to keep area covered until wound is closed Doxy x 10 days was sent into the patient's pharmacy Follow-up as needed 04/06/24 1602 Date Edna Cool Signature: Date (if applicable) CC: Normal [facility] Surgery Visit Reporton 03-17 Surgery Visit Report [facility] [address] [place] [address] OFFICE VISIT Date of Service: 03/17/24 MR#: [id number] Acct: [id number] Name: OK GOMEZ Rep #: [id number] : 1965 Provider: Dr. Selam hess MD Age/Sex: 58/M Location: [facility] Status: Signed Intake Vital Signs 01/31/24 17:48 Height 5 ft 9 in Intake Visit Reasons: ABSCESS ON LEG, PAINFUL/IRRITATED Chief Complaint: abscess on leg, painful/irritated Allergies escitalopram (From Lexapro) Adverse Reaction (Verified 03/17/24 09:44) Rash Medications ???Medication ???Instructions ???Recorded ???Confirmed ???Type levothyroxine 200 mcg tablet 200 mcg PO DAILY 07/25/20 03/17/24 History metformin 500 mg tablet 1,000 mg PO BID 07/25/20 03/17/24 History paroxetine HCl 40 mg tablet 40 mg PO DAILY 07/25/20 03/17/24 History rosuvastatin 40 mg tablet 40 mg PO QHS 07/25/20 03/17/24 History aspirin 81 mg tablet,delayed 81 mg PO DAILY 09/27/20 03/17/24 History release multivitamin 1 cap DAILY 09/27/20 03/17/24 History celecoxib 200 mg capsule (Celebrex) 200 mg PO BID #30 caps 01/03/23 03/17/24 Rx amlodipine 10 mg tablet 10 mg PO QDAY 03/09/24 03/17/24 History buspirone 10 mg tablet 10 mg PO BID 03/09/24 03/17/24 History insulin glargine U-300 conc 300 46 unit subcut QDAY 03/09/24 03/17/24 History unit/mL (3 mL) subcutaneous pen (Toujeo Max U-300 SoloStar) levothyroxine 300 mcg tablet 300 mcg PO QDAY 03/09/24 03/17/24 History lisinopril 20 mg tablet 40 mg PO DAILY 03/09/24 03/17/24 History metoprolol succinate 50 mg 25 mg PO .COMPLEX 03/09/24 03/17/24 History tablet,extended release 24 hr semaglutide 0.25 mg or 0.5 mg (2 2 mg subcut QWEEK 03/09/24 03/17/24 History mg/1.5 mL) subcutaneous pen injector (Ozempic) trazodone 100 mg tablet 100 mg PO QDAY 03/09/24 03/17/24 History doxycycline hyclate 100 mg capsule 100 mg PO BID #20 caps 03/17/24 03/17/24 Rx PFSH Medical History (Updated 03/17/24 @ 09:47 by Jahaira Cortez) Morbid obesity Hyperlipidemia Supraventricular tachycardia Abscess of head Lumbar radiculopathy Low back pain Osteoarthritis of right knee Right knee pain MRSA (methicillin resistant staph aureus) culture positive Abscess of left thigh Abscess COVID-19 SVT (supraventricular tachycardia) Type 2 diabetes mellitus Anxiety and depression 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 Patient states the pain started on Saturday or Saturday states it is tender to the touch thinks it may have drained but patient is unable to see this area well. ROS General General: No weight change, appetite, fatigue, colon cancer or breast cancer HEENT HEENT: No difficulty swallowing, eye injury, eye surgery, swollen glands or hoarseness Endo Endocrine: Yes diabetes mellitus; No thyroid disease, thyroid cancer, Hair loss, heat intolerance or cold intolerance Skin Additional Details: Left posterior leg and bilateral hands fifth digit dorsal aspect- abscesses Breast Breast: No left breast lump, right breast lump, nipple discharge, breast pain, abnormal mammogram, abnormal US or breast enlargement Musc Musculoskeletal: Yes arthritis and joint pain; No back problems, rheumatoid arthritis or gout Cardio Cardiovascular: Yes heart disease and high blood pressure; No murmur, pacemaker, atrial fibrillation, heart attack, heart stent, palpitations, shortness of breat with exertion or chest pain Psych Psychiatric: Yes depression and anxiety; No hearing voices Resp Respiratory: Yes shortness of breath, No sleep apnea, No cough, No COPD, No asthma, No emphysema and No wheezing Gastro Gastrointestinal: No abdominal pain, No nausea or vomiting, No diarrhea, No constipation, No blood in stool, No acid reflux, No hemorrhoids, No ulcers, No gallbladder problem and No black,tarry stools Nico Hematologic: No blood thinners, No blood disorders, No bleeding, No anemia and No blood clots Exam Const General: cooperative, comfortable and no acute distress Resp Effort Inspection: (more content not included)... Normal [facility] Surgery Visit Reporton 02-23 Surgery Visit Report [facility] [address] [place] [address]. [address] [place] [address] OFFICE VISIT Date of Service: 02/24/24 MR#: [id number] Acct: [id number] Name: OK GOMEZ Rep #: [id number] : 1965 Provider: CONSTANTINE ngo Age/Sex: 58/M Location: [facility] Status: Signed Intake Vital Signs 01/31/24 17:48 Height 5 ft 9 in Intake Visit Reasons: WOUND CHECK Chief Complaint: wound check Is patient in pain?: No Allergies escitalopram (From [employer]) Adverse Reaction (Verified 02/24/24 12:59) Rash Medications ???Medication ???Instructions ???Recorded ???Confirmed ???Type levothyroxine 200 mcg tablet 200 mcg PO DAILY 07/25/20 02/24/24 History metformin 500 mg tablet 1,000 mg PO BID 07/25/20 02/24/24 History paroxetine HCl 40 mg tablet 40 mg PO DAILY 07/25/20 02/24/24 History rosuvastatin 40 mg tablet 40 mg PO QHS 07/25/20 02/24/24 History aspirin 81 mg tablet,delayed 81 mg PO DAILY 09/27/20 02/24/24 History release multivitamin 1 cap DAILY 09/27/20 02/24/24 History lisinopril 20 mg tablet 20 mg PO DAILY 11/22/20 02/24/24 History insulin glargine U-300 conc 300 46 unit subcut DAILY 11/24/20 02/24/24 History unit/mL (1.5 mL) subcutaneous pen levothyroxine 50 mcg tablet 50 mcg PO DAILY 11/24/20 02/24/24 History melatonin 10 mg tablet 5 mg PO QHS 11/24/20 02/24/24 History semaglutide 0.25 mg or 0.5 mg (2 1 mg subcut QWEEK 11/24/20 02/24/24 History mg/1.5 mL) subcutaneous pen injector ([employer]) promethazine 25 mg tablet 25 mg PO Q6H PRN PRN Nausea #10 04/16/22 02/24/24 Rx TABLETS celecoxib 200 mg capsule (Celebrex) 200 mg PO BID #30 caps 01/03/23 02/24/24 Rx nirmatrelvir 300 mg (150 mg See Rx Instructions PO .COMPLEX 02/05/23 02/24/24 Rx x2)-ritonavir 100 mg tablet,dose #30 tabs pack (Paxlovid) mupirocin 2 % topical ointment 1 applic topical BID #15 grams 06/13/23 02/24/24 Rx metoprolol succinate 50 mg 50 mg PO .COMPLEX dditional 02/18/24 02/24/24 Rx tablet,extended release 24 hr refills will be given after office visi #90 tabs Subjective Details: Patient is a 58 y/o M who returns for a follow-up. He states the open wound is no longer draining. One minute he states there is a small amount of discomfort and then next he states there is no pain. He is no longer keeping the area covered. He denies any fever. He has completed the antibiotics as of today. Objective Details: Left posterior thigh- open wound with healthy red granulation tissue. There is some erythema noted superior to the open wound. No fluctuance palpated. No drainage is able to be expressed. There is no depth to the wound. Dry gauze was applied over top of the open wound and secured with tape. 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 on CPAP Essential hypertension Anxiety Depression Diabetes Hypothyroidism Hypertension Surgical History History of hip surgery Family History Father Hypertension Mother Myocardial infarction Diabetes Hypertension Sister Diabetes Social History household members: none Smoking Status: Never smoker alcohol intake: never substance use type: does not use caffeine: Yes Type: carbonated beverages Number of servings: 1 and tea Number of servings: 3 Assessment and Plan (No Qualifiers) Assessment and Plan (1) Abscess of thigh: Status: Acute Plan: Keep wound covered until completely closed Continue to use the Hibiclens over top of the open wound until closed No further antibiotics are needed at this time Follow-up in 1 month or sooner if area becomes worse. 02/24/24 1332 Date Edna Cool Signature: Date (if applicable) CC: Normal [facility] Surgery Visit Reporton 02-12 Surgery Visit Report [facility] [address] [place] [address]. [address] [place] [address] OFFICE VISIT Date of Service: 02/13/24 MR#: [id number] Acct: [id number] Name: PATRICIAOK Suresh Rep #: [id number] : 1965 Provider: CONSTANTINE ngo Age/Sex: 58/M Location: [facility] Status: Signed Intake Vital Signs 01/31/24 17:48 Height 5 ft 9 in Intake Visit Reasons: PACKING REMOVAL Chief Complaint: packing removal Is patient in pain?: No Allergies escitalopram (From [employer]) Adverse Reaction (Verified 02/13/24 13:28) Rash Medications ???Medication ???Instructions ???Recorded ???Confirmed ???Type levothyroxine 200 mcg tablet 200 mcg PO DAILY 07/25/20 02/13/24 History metformin 500 mg tablet 1,000 mg PO BID 07/25/20 02/13/24 History paroxetine HCl 40 mg tablet 40 mg PO DAILY 07/25/20 02/13/24 History rosuvastatin 40 mg tablet 40 mg PO QHS 07/25/20 02/13/24 History aspirin 81 mg tablet,delayed 81 mg PO DAILY 09/27/20 02/13/24 History release multivitamin 1 cap DAILY 09/27/20 02/13/24 History lisinopril 20 mg tablet 20 mg PO DAILY 11/22/20 02/13/24 History insulin glargine U-300 conc 300 46 unit subcut DAILY 11/24/20 02/13/24 History unit/mL (1.5 mL) subcutaneous pen levothyroxine 50 mcg tablet 50 mcg PO DAILY 11/24/20 02/13/24 History melatonin 10 mg tablet 5 mg PO QHS 11/24/20 02/13/24 History semaglutide 0.25 mg or 0.5 mg (2 1 mg subcut QWEEK 11/24/20 02/13/24 History mg/1.5 mL) subcutaneous pen injector (Ozempic) promethazine 25 mg tablet 25 mg PO Q6H PRN PRN Nausea #10 04/16/22 02/13/24 Rx TABLETS celecoxib 200 mg capsule (Celebrex) 200 mg PO BID #30 caps 01/03/23 02/13/24 Rx nirmatrelvir 300 mg (150 mg See Rx Instructions PO .COMPLEX 02/05/23 02/13/24 Rx x2)-ritonavir 100 mg tablet,dose #30 tabs pack (Paxlovid) metoprolol succinate 50 mg 50 mg PO DAILY #90 tabs 03/27/23 02/13/24 Rx tablet,extended release 24 hr mupirocin 2 % topical ointment 1 applic topical BID #15 grams 06/13/23 02/13/24 Rx doxycycline hyclate 100 mg capsule 100 mg PO BID #20 caps 02/12/24 02/13/24 Rx Subjective Details: Patient is a 58 y/o M s/p debridement of left posterior thigh abscess by myself on 02/12/24. Patient tolerated the procedure well. Patient notes the pain he was experiencing yesterday is completely gone. He notes the bandage stayed in place. He returns for packing removal. He notes he started his doxy today. He denies any fever. Objective Details: Left posterior thigh- open wound with bloody purulent drainage noted. Non-tender to palpation. Packing was pulled. Gauze was applied and secured with tape. Coding Level of Care Code Global Post Op Diagnoses Abscess of thigh L02.419 [facility] Medical History RANCHO on CPAP Essential hypertension Anxiety Depression Diabetes Hypothyroidism Hypertension Surgical History History of hip surgery Family History Father Hypertension Mother Myocardial infarction Diabetes Hypertension Sister Diabetes Social History household members: none Smoking Status: Never smoker alcohol intake: never substance use type: does not use caffeine: Yes Type: carbonated beverages Number of servings: 1 and tea Number of servings: 3 Assessment and Plan (No Qualifiers) Assessment and Plan (1) Abscess of thigh: Status: Acute Plan: Clean the open wound area twice daily with Hibiclens Pat dry and apply dressing Continue antibiotics Follow-up in 1 week 02/13/24 4937 Date Edna Cool Signature: Date (if applicable) CC: Normal [facility] Surgery Visit Reporton 02-11 Surgery Visit Report [facility] [address] [place] [address] OFFICE VISIT Date of Service: 02/12/24 MR#: [id number] Acct: [id number] Name: OK GOMEZ Rep #: [id number] : 1965 Provider: CNOSTANTINE ngo Age/Sex: 58/M Location: [facility] Status: Signed Intake Vital Signs 01/31/24 17:48 02/12/24 13:41 Height 5 ft 9 in BP 161/92 H Blood Pressure Location Rt brachial Position Sitting Respiration 17 Pulse 76 Pulse Source Monitor Pulse Oximetry (%) 97 Oxygen Delivery Method room air Intake Visit Reasons: ABSCESS BACK OF LEG, PAINFUL Chief Complaint: f/u abscesses Is patient in pain?: No Allergies escitalopram (From [employer]) Adverse Reaction (Verified 02/12/24 14:12) Rash Medications ???Medication ???Instructions ???Recorded ???Confirmed ???Type levothyroxine 200 mcg tablet 200 mcg PO DAILY 07/25/20 02/12/24 History metformin 500 mg tablet 1,000 mg PO BID 07/25/20 02/12/24 History paroxetine HCl 40 mg tablet 40 mg PO DAILY 07/25/20 02/12/24 History rosuvastatin 40 mg tablet 40 mg PO QHS 07/25/20 02/12/24 History aspirin 81 mg tablet,delayed 81 mg PO DAILY 09/27/20 02/12/24 History release multivitamin 1 cap DAILY 09/27/20 02/12/24 History lisinopril 20 mg tablet 20 mg PO DAILY 11/22/20 02/12/24 History insulin glargine U-300 conc 300 46 unit subcut DAILY 11/24/20 02/12/24 History unit/mL (1.5 mL) subcutaneous pen levothyroxine 50 mcg tablet 50 mcg PO DAILY 11/24/20 02/12/24 History melatonin 10 mg tablet 5 mg PO QHS 11/24/20 02/12/24 History semaglutide 0.25 mg or 0.5 mg (2 1 mg subcut QWEEK 11/24/20 02/12/24 History mg/1.5 mL) subcutaneous pen injector (Ozempic) promethazine 25 mg tablet 25 mg PO Q6H PRN PRN Nausea #10 04/16/22 02/12/24 Rx TABLETS celecoxib 200 mg capsule (Celebrex) 200 mg PO BID #30 caps 01/03/23 02/12/24 Rx nirmatrelvir 300 mg (150 mg See Rx Instructions PO .COMPLEX 02/05/23 02/12/24 Rx x2)-ritonavir 100 mg tablet,dose #30 tabs pack (Paxlovid) metoprolol succinate 50 mg 50 mg PO DAILY #90 tabs 03/27/23 02/12/24 Rx tablet,extended release 24 hr mupirocin 2 % topical ointment 1 applic topical BID #15 grams 06/13/23 02/12/24 Rx doxycycline hyclate 100 mg capsule 100 mg PO BID #20 caps 02/12/24 02/12/24 Rx PFSH Medical History RANCHO on CPAP Essential hypertension Anxiety Depression Diabetes Hypothyroidism Hypertension Surgical History History of hip surgery Family History Father Hypertension Mother Myocardial infarction Diabetes Hypertension Sister Diabetes Social History household members: none Smoking Status: Never smoker alcohol intake: never substance use type: does not use caffeine: Yes Type: carbonated beverages Number of servings: 1 and tea Number of servings: 3 HPI HPI HPI: Patient is a 58 y/o M who presents with a left posterior thigh abscess. Patient notes 2 weeks ago the abscess became painful and large. he went to the ED to obtain evaluation and antibiotics. Patient notes at that time it was draining some. Patient was diagnosed with cellulitis, however the area did not have to be opened. Patient contacted our office noting that he has completed antibiotics, however the are is still a little painful and he would like a refill on his antibiotics. Patient denies any fever. He notes a little pain. He has been keeping the area covered with band-aids. He has been washing the area with soap and water. He is not placing anything else on the open wound. ROS General General: No weight change, appetite, fatigue, colon cancer or breast cancer HEENT HEENT: No difficulty swallowing, eye injury, eye surgery, swollen glands or hoarseness Endo Endocrine: Yes diabetes mellitus; No thyroid disease, thyroid cancer, Hair loss, heat intolerance or cold intolerance Skin Additional Details: Left posterior leg and bilateral hands fifth digit dorsal aspect- abscesses Breast Breast: No left breast lump, right breast lump, nipple discharge, breast pain, abnormal mammogram, abnormal US or breast enlargement Musc Musculoskeletal: Yes arthritis and joint pain; No back problems, rheumatoid arthritis or gout Cardio Cardiovascular: Yes heart disease and high blood pressure; No murmur, pacemaker, atrial fibrillation, heart attack, heart stent, palpitations, shortness of breat with exertion or chest pain Psych Psychiatric: Yes depression and anxiety; No hearing voices Resp Respiratory: Yes shortness of breath, No sleep apnea, No cough, No COPD, No asthma, No emphysema and No whee (more content not included)... Normal [facility] Basic Metabolic Profile (BMP )on 01-31-2024 BUN/CRE 14.2 RATIO Normal -20 [facility] Comment on above: Performed By: #### L 500.2500, L100.0100 ####[facility] [address] [place], [address] CA,Total 9.6 mg/dL Normal 8.5-10.1 [facility] Comment on above: Performed By: #### L 500.2500, L100.0100 ####[facility] [address] [place], [address] Chloride [Moles/Vol] 106 mmol/L Normal 98-107 [facility] Comment on above: Performed By: #### L 500.2500, L100.0100 ####[facility] [address] [place], [address] CO2 [Moles/Vol] 26.0 mmol/L Normal 21.0-32.0 [facility] Comment on above: Performed By: #### L 500.2500, L100.0100 ####[facility] [address] [place], [address] Creatinine [Mass/Vol] 0.85 mg/dL Normal 0.70-1.30 [facility] Comment on above: Result Comment: The validity of the calculated GFR GFRAA in patients over 70 years has not been determined. Clinical correlation is essential. Performed By: #### L 500.2500, L100.0100 ####[facility] [address] [place], [address] ECRCL 161.71 ml/min Normal [facility] Comment on above: Performed By: #### L 500.2500, L100.0100 ####[facility] [address] [place], [address] EST GFR - AA 120 mL/min Normal >60 [facility] Comment on above: Result Comment: Afri can Tunisian GFR Calc Performed By: #### L 500.2500, L100.0100 ####[facility] [address] [place], [address] GAP 6 Normal 5-15 [facility] Comment on above: Performed By: #### L 500.2500, L100.0100 ####[facility] [address] [place], [address] GFR/1.73 sq M.predicted among non-blacks MDRD (S/P/Bld) [Vol rate/Area] 99 mL/min/{1.73_m2} Normal >60 [facility] Comment on above: Result Comment: Non- GFR Calc Performed By: #### L 500.2500, L100.0100 ####[facility] [address] [place], [address] Glucose [Mass/Vol] 143 mg/dL High 74-106 [facility] Comment on above: Result Comment: Fast ing Glucose result greater than or equal to 126 mg/dL suggests DIABETES MELLITUS per A.D.A. criteria. Performed By: #### L 500.2500, L100.0100 ####[facility] [address] [place], [address] Potassium [Moles/Vol] 4.3 mmol/L Normal 3.5-5.1 [facility] Comment on above: Performed By: #### L 500.2500, L100.0100 ####[facility] [address] [place], [address] Sodium [Moles/Vol] 138 mmol/L Normal 136-145 [facility] Comment on above: Performed By: #### L 500.2500, L100.0100 ####[facility] [address] [place], [address] Urea nitrogen [Mass/Vol] 12 mg/dL Normal 7-18 [facility] Comment on above: Performed By: #### L 500.2500, L100.0100 ####[facility] [address] [place], [address] CBC W/Diff, Automatedon 01-20 Absolute Lymph 2.16 X10 3/uL Normal 0.83-4.51 [facility] Comment on above: Performed By: #### L 500.2500, L100.0100 ####[facility] [address] [place], [address] Absolute Neut 6.1 X10 3/uL Normal 2.0-7.7 [facility] Comment on above: Performed By: #### L 500.2500, L100.0100 ####[facility] [address] [place], [address] Basophils/100 WBC (Bld) 0.6 % Normal 0-1 [facility] Comment on above: Performed By: #### L 500.2500, L100.0100 ####[facility] [address] [place], [address] Eosinophils/100 WBC (Bld) 2.2 % Normal 0-5 [facility] Comment on above: Performed By: #### L 500.2500, L100.0100 ####[facility] [address] [place], [address] Erythrocyte distribution width (RBC) [Ratio] 12.9 % Normal 11.6-14.6 [facility] Comment on above: Performed By: #### L 500.2500, L100.0100 ####[facility] [address] [place], [address] Hematocrit (Bld) [Volume fraction] 43.2 % Normal 40-54 [facility] Comment on above: Performed By: #### L 500.2500, L100.0100 ####[facility] [address] [place], [address] Hemoglobin (Bld) [Mass/Vol] 14.0 g/dL Normal 13.0-16.5 [facility] Comment on above: Performed By: #### L 500.2500, L100.0100 ####[facility] [address] [place], [address] IG% 0.300 Normal 0.0-0.9 [facility] Comment on above: Result Comment: IG% - Immature Granulocytes (promyelocytes, myelocytes and metamyelocytes) > 1% indicates that a LEFT SHIFT is Present. Performed By: #### L 500.2500, L100.0100 ####[facility] [address] [place], [address] Lymphocytes/100 WBC (Bld) 22.5 % Normal 19-41 [facility] Comment on above: Performed By: #### L 500.2500, L100.0100 ####[facility] [address] [place], [address] MCH (RBC) [Entitic mass] 30.2 pg Normal 27.0-32.0 [facility] Comment on above: Performed By: #### L 500.2500, L100.0100 ####[facility] [address] [place], [address] MCHC (RBC) [Mass/Vol] 32.4 g/dL Normal 32-36 [facility] Comment on above: Performed By: #### L 500.2500, L100.0100 ####[facility] [address] [place], [address] MCV (RBC) [Entitic vol] 93.1 fL Normal 80-94 [facility] Comment on above: Performed By: #### L 500.2500, L100.0100 ####[facility] [address] [place], [address] Monocytes/100 WBC (Bld) 10.8 % High 0-10 [facility] Comment on above: Performed By: #### L 500.2500, L100.0100 ####[facility] [address] [place], [address] Neutrophils/100 WBC (Bld) 63.6 % Normal 47-70 [facility] Comment on above: Performed By: #### L 500.2500, L100.0100 ####[facility] [address] [place], [address] Nucleated RBC (Bld) [#/Vol] 0 10*3/uL Normal 0-5 [facility] Comment on above: Performed By: #### L 500.2500, L100.0100 ####[facility] [address] [place], [address] Platelet mean volume (Bld) [Entitic vol] 10.4 fL Normal 6.2-12.0 [facility] Comment on above: Performed By: #### L 500.2500, L100.0100 ####[facility] [address] [place], [address] Platelets (Bld) [#/Vol] 286 10*3/uL Normal 150-450 [facility] Comment on above: Performed By: #### L 500.2500, L100.0100 ####[facility] [address] [place], [address] RBC (Bld) [#/Vol] 4.64 10*6/uL Normal 4.6-6.2 [facility] Comment on above: Performed By: #### L 500.2500, L100.0100 ####[facility] [address] [place], [address] RDW SD 43.9 fl Normal 35.1-43.9 [facility] Comment on above: Performed By: #### L 500.2500, L100.0100 ####[facility] [address] [place], [address] WBC (Bld) [#/Vol] 9.6 10*3/uL Normal 4.4-11.0 [facility] Comment on above: Performed By: #### L 500.2500, L100.0100 ####[facility] [address] [place], [address] Emergency Department Summary on 01-31-2024 Emergency Department Summary [facility] Medical Records Department [address] [place] [address] Emergency Department Summary 01/31/24 MR#: [id number] Acct: [id number] Name: OK GOMEZ Rep #: [id number] : 1965 58 From: Rey Torres MD PCP: Dr. Alison Reyes MD Status:REG ER Location: ED HPI History of Present Illness Chief Complaint: Wound Detail of Chief Complaint: Boil posterior left thigh Informant: patient Onset/Context/Timing Onset: Days Context: Sudden Onset Timing: Continuous Quality: Suspect the boil has spontaneously drained Location: Posterior mid left thigh Current Severity: Mild Maximum Severity: Moderate Worsened by: History of diabetes Relieved by: spontaneously ruptured Associated Symptoms Associated Symptoms: no history rheumatic fever. No allergies to antibiotics. Narrative Narrative: Patient is a 58-year-old male with a BMI of 61.4, type 2 diabetes, essential hypertension, prior abscesses who presents because of concern for abscess posterior mid left thigh. He thinks it spontaneously drained. He denies fever, chills night sweats. He denies rheumatic fever, heart murmur, SBE or being immune suppressed. He denies cardiac or respiratory symptoms. He denies GI symptoms. He denies polyuria, nocturia or polydipsia. 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 on CPAP Essential hypertension Anxiety Depression Diabetes Hypothyroidism Hypertension Home Medications ???Medication ???Instructions ???Recorded ???Last Taken ???Type levothyroxine 200 mcg tablet 200 mcg PO DAILY 07/25/20 Unknown History metformin 500 mg tablet 1,000 mg PO BID 07/25/20 Unknown History paroxetine HCl 40 mg tablet 40 mg PO DAILY 07/25/20 Unknown History rosuvastatin 40 mg tablet 40 mg PO QHS 07/25/20 Unknown History aspirin 81 mg tablet,delayed 81 mg PO DAILY 09/27/20 Unknown History release multivitamin 1 cap DAILY 09/27/20 Unknown History lisinopril 20 mg tablet 20 mg PO DAILY 11/22/20 Unknown History insulin glargine U-300 conc 300 46 unit subcut DAILY 11/24/20 Unknown History unit/mL (1.5 mL) subcutaneous pen levothyroxine 50 mcg tablet 50 mcg PO DAILY 11/24/20 Unknown History melatonin 10 mg tablet 5 mg PO QHS 11/24/20 Unknown History semaglutide 0.25 mg or 0.5 mg (2 1 mg subcut QWEEK 11/24/20 Unknown History mg/1.5 mL) subcutaneous pen injector (Ozempic) promethazine 25 mg tablet 25 mg PO Q6H PRN PRN Nausea #10 04/16/22 Unknown Rx TABLETS celecoxib 200 mg capsule (Celebrex) 200 mg PO BID #30 caps 01/03/23 Unknown Rx nirmatrelvir 300 mg (150 mg See Rx Instructions PO .COMPLEX 02/05/23 Unknown Rx x2)-ritonavir 100 mg tablet,dose #30 tabs pack (Paxlovid) metoprolol succinate 50 mg 50 mg PO DAILY #90 tabs 03/27/23 Unknown Rx tablet,extended release 24 hr mupirocin 2 % topical ointment 1 applic topical BID #15 grams 06/13/23 Unknown Rx doxycycline hyclate 100 mg capsule 100 mg PO BID #20 caps 10/22/23 Unknown Rx doxycycline monohydrate 100 mg 100 mg PO BID #14 CAPSULES 01/31/24 Unknown Rx capsule Allergy/AdvReac Type Severity Reaction Status Date / Time escitalopram (From Lexapro) AdvReac Rash Verified 01/31/24 17:48 Family History Father Hypertension Mother Myocardial infarction Diabetes Hypertension Sister Diabetes Surgical History History of hip surgery Social History household members: none Smoking Status: Never smoker alcohol intake: never substance use type: does not use caffeine: Yes Type: carbonated beverages Number of servings: 1 and tea Number of servings: 3 ROS ROS ED Constitutional Constitutional ED: Denies chills, fever(s), subjective, sweats or weight loss Eyes Eyes: Denies blurry vision Cardiovascular Cardiovascular: Denies chest pain or palpitations Respiratory/Chest Respiratory/Chest: Denies cough, dyspnea or dyspnea on exertion Gastrointestinal Gastrointestinal: Denies abdominal pain, diarrhea, nausea or vomiting Genitourinary Genitourinary ED: Denies dysuria, hematuria or urinary frequency Musculoskeletal Musculoskeletal: Denies arthralgias or myalgias Integumentary Reports abscess and rash Neurologic Neurologic: Denies headache(s) or paresthesias Hematologic/Lymphatic Hematologic/Lymphatic: Reports systems reviewed and no addt'l complaints, except as documented EXAM Physical Exam Const Vital Signs: 01/31/24 17:48 Temperature 97.5 F L Temperature Source Oral Pulse Rate 73 Respiratory Rate 22 H Blood Pressure 146/81 H Blood Pressure Mean 102 Pulse Ox 99 (more content not included)... Normal [facility] CBC W/Diff, Automatedon 12-22 Absolute Lymph 2.82 X10 3/uL Normal 0.83-4.51 [facility] Comment on above: Order Comment: Order Date: 01/14/24Order Info: 0184-1 - CBCD Performed By: #### L 506.0400, L500.4050, L502.0250, L100.0100, L501.9985, L501.9520 ####[facility] [address] [place], [address] Absolute Neut 5.8 X10 3/uL Normal 2.0-7.7 [facility] Comment on above: Order Comment: Order Date: 01/14/24Order Info: 0184-1 - CBCD Performed By: #### L 506.0400, L500.4050, L502.0250, L100.0100, L501.9985, L501.9520 ####[facility] [address] [place], [address] Basophils/100 WBC (Bld) 0.7 % Normal 0-1 [facility] Comment on above: Order Comment: Order Date: 01/14/24Order Info: 018- - CBCD Performed By: #### L 506.0400, L500.4050, L502.0250, L100.0100, L501.9985, L501.9520 ####[facility] [address] [place], [address] Eosinophils/100 WBC (Bld) 2.6 % Normal 0-5 [facility] Comment on above: Order Comment: Order Date: 01/14/24Order Info: 018- - CBCD Performed By: #### L 506.0400, L500.4050, L502.0250, L100.0100, L501.9985, L501.9520 ####[facility] [address] [place], [place], [phone] Erythrocyte distribution width (RBC) [Ratio] 12.7 % Normal 11.6-14.6 [facility] Comment on above: Order Comment: Order Date: 01/14/24Order Info: 018-1 - CBCD Performed By: #### L 506.0400, L500.4050, L502.0250, L100.0100, L501.9985, L501.9520 ####[facility] [address] [place], [address] Hematocrit (Bld) [Volume fraction] 44.5 % Normal 40-54 [facility] Comment on above: Order Comment: Order Date: 01/14/24Order Info: 0184-1 - CBCD Performed By: #### L 506.0400, L500.4050, L502.0250, L100.0100, L501.9985, L501.9520 ####[facility] [address] [place], [address] Hemoglobin (Bld) [Mass/Vol] 14.3 g/dL Normal 13.0-16.5 [facility] Comment on above: Order Comment: Order Date: 01/14/24Order Info: 0184-1 - CBCD Performed By: #### L 506.0400, L500.4050, L502.0250, L100.0100, L501.9985, L501.9520 ####[facility] [address] [place], [address] IG% 0.400 Normal 0.0-0.9 [facility] Comment on above: Order Comment: Order Date: 01/14/24Order Info: 0184-1 - CBCD Result Comment: IG% - Immature Granulocytes (promyelocytes, myelocytes and metamyelocytes) > 1% indicates that a LEFT SHIFT is Present. Performed By: #### L 506.0400, L500.4050, L502.0250, L100.0100, L501.9985, L501.9520 ####[facility] [address] [place], [address] Lymphocytes/100 WBC (Bld) 28.6 % Normal 19-41 [facility] Comment on above: Order Comment: Order Date: 01/14/24Order Info: 0184-1 - CBCD Performed By: #### L 506.0400, L500.4050, L502.0250, L100.0100, L501.9985, L501.9520 ####[facility] [address] [place], [address] MCH (RBC) [Entitic mass] 30.0 pg Normal 27.0-32.0 [facility] Comment on above: Order Comment: Order Date: 01/14/24Order Info: 183- - CBCD Performed By: #### L 506.0400, L500.4050, L502.0250, L100.0100, L501.9985, L501.9520 ####[facility] [address] [place], [address] MCHC (RBC) [Mass/Vol] 32.1 g/dL Normal 32-36 [facility] Comment on above: Order Comment: Order Date: 01/14/24Order Info: 183-04 - CBCD Performed By: #### L 506.0400, L500.4050, L502.0250, L100.0100, L501.9985, L501.9520 ####[facility] [address] [place], [address] MCV (RBC) [Entitic vol] 93.5 fL Normal 80-94 [facility] Comment on above: Order Comment: Order Date: 01/14/24Order Info: 183- - CBCD Performed By: #### L 506.0400, L500.4050, L502.0250, L100.0100, L501.9985, L501.9520 ####[facility] [address] [place], [address] Monocytes/100 WBC (Bld) 8.4 % Normal 0-10 [facility] Comment on above: Order Comment: Order Date: 01/14/24Order Info: 183- - CBCD Performed By: #### L 506.0400, L500.4050, L502.0250, L100.0100, L501.9985, L501.9520 ####[facility] [address] [place], [address] Neutrophils/100 WBC (Bld) 59.3 % Normal 47-70 [facility] Comment on above: Order Comment: Order Date: 01/14/24Order Info: 018-1 - CBCD Performed By: #### L 506.0400, L500.4050, L502.0250, L100.0100, L501.9985, L501.9520 ####[facility] [address] [place], [address] Nucleated RBC (Bld) [#/Vol] 0 10*3/uL Normal 0-5 [facility] Comment on above: Order Comment: Order Date: 01/14/24Order Info: 018- - CBCD Performed By: #### L 506.0400, L500.4050, L502.0250, L100.0100, L501.9985, L501.9520 ####[facility] [address] [place], [address] Platelet mean volume (Bld) [Entitic vol] 11.0 fL Normal 6.2-12.0 [facility] Comment on above: Order Comment: Order Date: 01/14/24Order Info: 018- - CBCD Performed By: #### L 506.0400, L500.4050, L502.0250, L100.0100, L501.9985, L501.9520 ####[facility] [address] [place], [address] Platelets (Bld) [#/Vol] 304 10*3/uL Normal 150-450 [facility] Comment on above: Order Comment: Order Date: 01/14/24Order Info: 018-1 - CBCD Performed By: #### L 506.0400, L500.4050, L502.0250, L100.0100, L501.9985, L501.9520 ####[facility] [address] [place], [address] RBC (Bld) [#/Vol] 4.76 10*6/uL Normal 4.6-6.2 [facility] Comment on above: Order Comment: Order Date: 01/14/24Order Info: 0184-1 - CBCD Performed By: #### L 506.0400, L500.4050, L502.0250, L100.0100, L501.9985, L501.9520 ####[facility] [address] [place], [address] RDW SD 43.8 fl Normal 35.1-43.9 [facility] Comment on above: Order Comment: Order Date: 01/14/24Order Info: 0184- - CBCD Performed By: #### L 506.0400, L500.4050, L502.0250, L100.0100, L501.9985, L501.9520 ####[facility] [address] [place], [address] WBC (Bld) [#/Vol] 9.9 10*3/uL Normal 4.4-11.0 [facility] Comment on above: Order Comment: Order Date: 01/14/24Order Info: 0184-1 - CBCD Performed By: #### L 506.0400, L500.4050, L502.0250, L100.0100, L501.9985, L501.9520 ####[facility] [address] [place], [address] Comprehensive Metabolic Prof [facility] 01-14-2024 Albumin [Mass/Vol] 3.5 g/dL Normal 3.2-5.0 [facility] Comment on above: Order Comment: Order Date: 01/14/24Order Info: 0786-1 - CMPOrder Info: 3016-3 - TSHOrder Info: 3024-7 - T4F Performed By: #### L 506.0400, L500.4050, L502.0250, L100.0100, L501.9985, L501.9520 ####[facility] [address] [place], [address] Albumin/Globulin [Mass ratio] 0.9 {ratio} Normal 0.9-2.4 [facility] Comment on above: Order Comment: Order Date: 01/14/24Order Info: 0786-1 - CMPOrder Info: 3015-06 - TSHOrder Info: 3024-7 - T4F Performed By: #### L 506.0400, L500.4050, L502.0250, L100.0100, L501.9985, L501.9520 ####[facility] [address] [place], [address] ALK P 123 U/L High 45-117 [facility] Comment on above: Order Comment: Order Date: 01/14/24Order Info: 0786- - CMPOrder Info: 3015-06 - TSHOrder Info: 7 - T4F Performed By: #### L 506.0400, L500.4050, L502.0250, L100.0100, L501.9985, L501.9520 ####[facility] [address] [place], [address] ALT [Catalytic activity/Vol] 39 U/L Normal 16-61 [facility] Comment on above: Order Comment: Order Date: 01/14/24Order Info: 0786-1 - CMPOrder Info: 3 - TSHOrder Info: 3024-7 - T4F Performed By: #### L 506.0400, L500.4050, L502.0250, L100.0100, L501.9985, L501.9520 ####[facility] [address] [place], [address] AST [Catalytic activity/Vol] 33 U/L Normal 15-37 [facility] Comment on above: Order Comment: Order Date: 01/14/24Order Info: 0786-1 - CMPOrder Info: 3015-06 - TSHOrder Info: 3023-10 - T4F Performed By: #### L 506.0400, L500.4050, L502.0250, L100.0100, L501.9985, L501.9520 ####[facility] [address] [place], [place], [id number] Bilirubin [Mass/Vol] 0.30 mg/dL Normal 0.20-1.00 [facility] Comment on above: Order Comment: Order Date: 01/14/24Order Info: 785-04 - CMPOrder Info: 3015-06 - TSHOrder Info: 3023-10 - T4F Result Comment: For patients on eltrombopag therapy, use of Dimension [place] TBIL is not recommended. Performed By: #### L 506.0400, L500.4050, L502.0250, L100.0100, L501.9985, L501.9520 ####[facility] [address] [place], [place], [id number] BUN/CRE 16.7 RATIO Normal 10-20 [facility] Comment on above: Order Comment: Order Date: 01/14/24Order Info: 785-04 - CMPOrder Info: 3015-06 - TSHOrder Info: 7 - T4F Performed By: #### L 506.0400, L500.4050, L502.0250, L100.0100, L501.9985, L501.9520 ####[facility] [address] [place], [place], [id number] CA,Total 9.5 mg/dL Normal 8.5-10.1 [facility] Comment on above: Order Comment: Order Date: 01/14/24Order Info: 07 - CMPOrder Info: 3015-06 - TSHOrder Info: 3027 - T4F Performed By: #### L 506.0400, L500.4050, L502.0250, L100.0100, L501.9985, L501.9520 ####[facility] [address] [place], [address] Chloride [Moles/Vol] 105 mmol/L Normal 98-107 [facility] Comment on above: Order Comment: Order Date: 01/14/24Order Info: [id number] - CMPOrder Info: 3 - TSHOrder Info: 3024-7 - T4F Performed By: #### L 506.0400, L500.4050, L502.0250, L100.0100, L501.9985, L501.9520 ####[facility] [address] [place], [address] CO2 [Moles/Vol] 24.0 mmol/L Normal 21.0-32.0 [facility] Comment on above: Order Comment: Order Date: 01/14/24Order Info: 785-04 - CMPOrder Info: 3015-06 - TSHOrder Info: 7 - T4F Performed By: #### L 506.0400, L500.4050, L502.0250, L100.0100, L501.9985, L501.9520 ####[facility] [address] [place], [address] Creatinine [Mass/Vol] 1.14 mg/dL Normal 0.70-1.30 [facility] Comment on above: Order Comment: Order Date: 01/14/24Order Info: [id number] - CMPOrder Info: 3015-06 - TSHOrder Info: 3024-7 - T4F Result Comment: The validity of the calculated GFR GFRAA in patients over 70 years has not been determined. Clinical correlation is essential. Performed By: #### L 506.0400, L500.4050, L502.0250, L100.0100, L501.9985, L501.9520 ####[facility] [address] [place], [address] EST GFR - AA 85 mL/min Normal >60 [facility] Comment on above: Order Comment: Order Date: 01/14/24Order Info: 785- - CMPOrder Info: 3015-06 - TSHOrder Info: 7 - T4F Result Comment: Afri can [place] GFR Calc Performed By: #### L 506.0400, L500.4050, L502.0250, L100.0100, L501.9985, L501.9520 ####[facility] [address] [place], [address] GAP 7 Normal 5-15 [facility] Comment on above: Order Comment: Order Date: 01/14/24Order Info: 785-04 - CMPOrder Info: 3015-06 - TSHOrder Info: 3023-10 - T4F Performed By: #### L 506.0400, L500.4050, L502.0250, L100.0100, L501.9985, L501.9520 ####[facility] [address] [place], [address] GFR/1.73 sq M.predicted among non-blacks MDRD (S/P/Bld) [Vol rate/Area] 70 mL/min/{1.73_m2} Normal >60 [facility] Comment on above: Order Comment: Order Date: 01/14/24Order Info: 785-04 - CMPOrder Info: 3015-06 - TSHOrder Info: 3023-10 - T4F Result Comment: Non- GFR Calc Performed By: #### L 506.0400, L500.4050, L502.0250, L100.0100, L501.9985, L501.9520 ####[facility] [address] [place], [address] Globulin (S) [Mass/Vol] 3.8 g/dL Normal 2.2-4.2 [facility] Comment on above: Order Comment: Order Date: 01/14/24Order Info: 785-04 - CMPOrder Info: 3015-06 - TSHOrder Info: 3027 - T4F Performed By: #### L 506.0400, L500.4050, L502.0250, L100.0100, L501.9985, L501.9520 ####[facility] [address] [place], [address] Glucose [Mass/Vol] 162 mg/dL High 74-106 [facility] Comment on above: Order Comment: Order Date: 01/14/24Order Info: 86-1 - CMPOrder Info: 3015-06 - TSHOrder Info: 302-7 - T4F Result Comment: Fast ing Glucose result greater than or equal to 126 mg/dL suggests DIABETES MELLITUS per A.D.A. criteria. Performed By: #### L 506.0400, L500.4050, L502.0250, L100.0100, L501.9985, L501.9520 ####[facility] [address] [place], [address] Potassium [Moles/Vol] 4.3 mmol/L Normal 3.5-5.1 [facility] Comment on above: Order Comment: Order Date: 01/14/24Order Info: 785-1 - CMPOrder Info: 3015-06 - TSHOrder Info: 3027 - T4F Performed By: #### L 506.0400, L500.4050, L502.0250, L100.0100, L501.9985, L501.9520 ####[facility] [address] [place], [address] Sodium [Moles/Vol] 136 mmol/L Normal 136-145 [facility] Comment on above: Order Comment: Order Date: 01/14/24Order Info: 785-1 - CMPOrder Info: 3015-06 - TSHOrder Info: 3027 - T4F Performed By: #### L 506.0400, L500.4050, L502.0250, L100.0100, L501.9985, L501.9520 ####[facility] [address] [place], [address] T PROT 7.3 g/dL Normal 6.4-8.2 [facility] Comment on above: Order Comment: Order Date: 01/14/24Order Info: 0786-1 - CMPOrder Info: 3016-3 - TSHOrder Info: 3024-7 - T4F Performed By: #### L 506.0400, L500.4050, L502.0250, L100.0100, L501.9985, L501.9520 ####[facility] [address] [place], [address] Urea nitrogen [Mass/Vol] 19 mg/dL High 7-18 [facility] Comment on above: Order Comment: Order Date: 01/14/24Order Info: 0786-1 - CMPOrder Info: 3016-3 - TSHOrder Info: 3024-7 - T4F Performed By: #### L 506.0400, L500.4050, L502.0250, L100.0100, L501.9985, L501.9520 ####[facility] [address] [place], [address] Hemoglobin A1con 01-14-2024 HbA1c (Bld) [Mass fraction] 7.9 % High 3.8-5.6 [facility] Comment on above: Order Comment: Order Date: 01/14/24Order Info: 4548-4 - A1C Result Comment: Norm al < 5.7 % Prediabetic 5.7 - 6.4 % Diabetic >or= 6.5 % Please note range changes. Performed By: #### L 506.0400, L500.4050, L502.0250, L100.0100, L501.9985, L501.9520 ####[facility] [address] [place], [place], [id number] Microalb:Creat Ratio,Random URon 01-14-2024 Creatinine [Mass/Vol] 177.00 mg/dL Normal NO RAN GE EST. [facility] Comment on above: Order Comment: Order Date: 01/14/24Order Info: 0779-1 - MIACRE Performed By: #### L 506.0400, L500.4050, L502.0250, L100.0100, L501.9985, L501.9520 ####[facility] [address] [place], [address] MALB:CRE 4.0 mg/g CRE Normal <30 mg/g CRE [facility] Comment on above: Order Comment: Order Date: 01/14/24Order Info: 0779-1 - MIACRE Performed By: #### L 506.0400, L500.4050, L502.0250, L100.0100, L501.9985, L501.9520 ####[facility] [address] [place], [address] MICROALBUMIN,UR 7.1 mg/L Normal NO RANGE EST. [facility] Comment on above: Order Comment: Order Date: 01/14/24Order Info: 0779-1 - MIACRE Performed By: #### L 506.0400, L500.4050, L502.0250, L100.0100, L501.9985, L501.9520 ####[facility] [address] [place], [place], [id number] T4 Free Directon 01-14-2024 T4 FREE DIRECT 0.74 ng/dL Low 0.76-1.46 [facility] Comment on above: Order Comment: Order Date: 01/14/24Order Info: 0786-1 - CMPOrder Info: 3016-3 - TSHOrder Info: 3024-7 - T4F Performed By: #### L 506.0400, L500.4050, L502.0250, L100.0100, L501.9985, L501.9520 ####[facility] [address] [place], [address] Thyroid Stim Hormone (TSH)on 01-14-2024 TSH 21.000 uIU/mL High 0.358-3.740 [facility] Comment on above: Order Comment: Order Date: 09/24/24Order Info: 0786-1 - CMPOrder Info: 3016-3 - TSHOrder Info: 3024-7 - T4F Performed By: #### L 506.0400, L500.4050, L502.0250, L100.0100, L501.9985, L501.9520 ####[facility] [address] [place], [address] Urinalysis, Completeon 01-13 WBC 0-5 SEEN Normal 0-5 [facility] Comment on above: Order Comment: CLEAN CATCH Performed By: #### L 400.0001 ####[facility] [address] [place], [address] BACTERIA 0 SEEN Normal None Seen [facility] Comment on above: Order Comment: CLEAN CATCH Performed By: #### L 400.0001 ####[facility] [address] [place], [address] EPI,SQUAMOUS 0 SEEN Normal 0-5 [facility] Comment on above: Order Comment: CLEAN CATCH Performed By: #### L 400.0001 ####[facility] [address] [place], [address] Mucus Ql (Urine sed) 0 SEEN Normal [facility] Comment on above: Order Comment: CLEAN CATCH Performed By: #### L 400.0001 ####[facility] [address] [place], [address] RBC 0 SEEN Normal 0-5 [facility] Comment on above: Order Comment: CLEAN CATCH Performed By: #### L 400.0001 ####[facility] [address] [place], [address] Surgery Visit Reporton 10-21 Surgery Visit Report [facility] [address] [place] [address] OFFICE VISIT Date of Service: 10/22/23 MR#: [id number] Acct: [id number] Name: [place] GOMEZ #: [id number] : 1965 Provider: CONSTANTINE ngo Age/Sex: 58/M Location: [facility] Status: Signed Intake Vital Signs 05/06/23 13:42 Height 5 ft 9 in Intake Visit Reasons: F/U ABSCESS ON BACK AND LEG Chief Complaint: f/u abscesses Is patient in pain?: No Allergies escitalopram (From Lexapro) Adverse Reaction (Verified 10/22/23 14:20) Rash Medications ???Medication ???Instructions ???Recorded ???Confirmed ???Type levothyroxine 200 mcg tablet 200 mcg PO DAILY 07/25/20 10/22/23 History metformin 500 mg tablet 1,000 mg PO BID 07/25/20 10/22/23 History paroxetine HCl 40 mg tablet 40 mg PO DAILY 07/25/20 10/22/23 History rosuvastatin 40 mg tablet 40 mg PO QHS 07/25/20 10/22/23 History aspirin 81 mg tablet,delayed 81 mg PO DAILY 09/27/20 10/22/23 History release multivitamin 1 cap DAILY 09/27/20 10/22/23 History lisinopril 20 mg tablet 20 mg PO DAILY 11/22/20 10/22/23 History insulin glargine U-300 conc 300 46 unit subcut DAILY 11/24/20 10/22/23 History unit/mL (1.5 mL) subcutaneous pen levothyroxine 50 mcg tablet 50 mcg PO DAILY 11/24/20 10/22/23 History melatonin 10 mg tablet 5 mg PO QHS 11/24/20 10/22/23 History semaglutide 0.25 mg or 0.5 mg (2 1 mg subcut QWEEK 11/24/20 10/22/23 History mg/1.5 mL) subcutaneous pen injector (Ozempic) promethazine 25 mg tablet 25 mg PO Q6H PRN PRN Nausea #10 04/16/22 10/22/23 Rx TABLETS celecoxib 200 mg capsule (Celebrex) 200 mg PO BID #30 caps 01/03/23 10/22/23 Rx nirmatrelvir 300 mg (150 mg See Rx Instructions PO .COMPLEX 02/05/23 10/22/23 Rx x2)-ritonavir 100 mg tablet,dose #30 tabs pack (Paxlovid) metoprolol succinate 50 mg 50 mg PO DAILY #90 tabs 03/27/23 10/22/23 Rx tablet,extended release 24 hr mupirocin 2 % topical ointment 1 applic topical BID #15 grams 06/13/23 10/22/23 Rx doxycycline hyclate 100 mg capsule 100 mg PO BID #20 caps 10/22/23 10/22/23 Rx Subjective Details: Patient is a 58 y/o M I am following for possible abscess on his left posterior thigh. Patient notes the abscess started approximately 1 week ago. He notes he was placing alcohol and peroxide on the abscess which then opened up and started draining. Patient is not currently on antibiotics. Patient is not covering the area. He notes very minimal amount of tenderness. Objective Details: Left posterior thigh- open wound with eschar and scabbing noted. Wound was debrided and all eschar material was removed. Open wound was cleansed with saline and op-site applied over top of the very s uperficial opening. Coding Level of Care Code Off vis,est,level 3 Diagnoses Abscess of thigh L02.419 [facility] Medical History Anxiety Depression Diabetes Essential hypertension Hypertension Hypothyroidism RANCHO on CPAP Surgical History History of hip surgery Family History Father Hypertension Mother Myocardial infarction Diabetes Hypertension Sister Diabetes Social History household members: none Smoking Status: Never smoker alcohol intake: never substance use type: does not use caffeine: Yes Type: carbonated beverages Number of servings: 1 and tea Number of servings: 3 Assessment and Plan (No Qualifiers) Assessment and Plan (1) Abscess of thigh: Status: Acute Plan: Start doxy x 10 days. Prescription sent. Michelleiclepeggy was provided to the patient Keep area covered until completely healed Follow-up as needed 10/22/23 1539 Date Edna Garcia PA PA-C Cosigner Signature: Date (if applicable) CC: Normal [facility] XR CHEST 2 VIEWSon 4 XR CHEST 2 VIEWS ORIGINAL EXAMINATION: TWO XRAY VIEWS OF THE CHEST 08/04/2023 10:56 pm COMPARISON: PA and lateral chest radiographs 12/24/2015. HISTORY: ORDERING SYSTEM PROVIDED HISTORY: Reason for Exam: SOB/Cough/Fever FINDINGS: The lungs are without acute focal process. There is no effusion or pneumothorax. The cardiomediastinal silhouette is without acute process. The osseous structures are without acute process. IMPRESSION: No acute process. Interpreted by: Andre Rowe Preliminary Report By: Andre Rowe Electronically signed By Andre Rowe Dictated Date: 08/04/2023 11:01:57 PM Prelim Date: 08/04/2023 11:03:09 PM Sign Date: 08/04/2023 11:03:09 PM Ordering Provider: JESU HOLLAND [facility] ([place]) Absolute lymphocyte countOrd ered By: Alison Reyes on 07-10-2023 Lymphocytes Auto (Unsp spec) [#/Vol] 2.95 10*3/uL 0.83-4.51 [facility] Automated lymphocyte count a s percentage of total leukocytesOrdered By: Alison Reyes on 07-10-2023 Lymphocytes/100 WBC Auto (Unsp spec) 34.7 % 19-41 [facility] Basophil percentageOrdered B y: Alison Reyes on 07-10-2023 Basophil percentage 0 SEEN /hpf 0-5 [facility] Basophils/100 WBC (Bld) 0.6 % 0-1 [facility] Bilirubin [Mass/Vol] 0.40 mg/dL 0.20-1.00 [facility] Comment on above: For patients on eltr ombopag therapy, use of Dimension [place] TBIL is not recommended. Chloride [Moles/Vol] 107 mmol/L 98-107 [facility] Cholesterol [Mass/Vol] 131 mg/dL <200 [facility] Comment on above: <200 mg/dL Desirable 200-240 mg/dL Borderline >240 mg/dL High Risk Eosinophils/100 WBC (Bld) 2.6 % 0-5 [facility] Glucose [Mass/Vol] 170 mg/dL 74-106 [facility] Comment on above: Fasting Glucose resu lt greater than or equal to 126 mg/dL suggests DIABETES MELLITUS per A.D.A. criteria. Hemoglobin (Bld) [Mass/Vol] 13.4 g/dL 13.0-16.5 [facility] Monocytes/100 WBC (Bld) 9.0 % 0-10 [facility] Neutrophils (Bld) [#/Vol] 4.5 10*3/uL 2.0-7.7 [facility] Neutrophils/100 WBC (Bld) 52.7 % 47-70 [facility] Potassium [Moles/Vol] 4.2 mmol/L 3.5-5.1 [facility] Protein [Mass/Vol] 6.8 g/dL 6.4-8.2 [facility] Sodium [Moles/Vol] 139 mmol/L 136-145 [facility] Triglyceride [Mass/Vol] 152 mg/dL <199 [facility] Comment on above: The drugs N-Acetylcy steine and Metamizole may falsely depress this assay.Serum Triglycerides Reference Interval Normal <150 mg/dL Borderline high 150 - 199 mg/dL High 200 - 499 mg/dL Very High > or = 500 mg/dL WBC (Bld) [#/Vol] 8.5 10*3/uL 4.4-11.0 [facility] Bilirubin Test strip Ql (U)O rdered By: Alison Reyes on 07-10-2023 Bilirubin Ql (U) Negative Negative [facility] Determination of erythrocyte mean corpuscular volume (MCV)Ordered By: Alison Reyes on 07-10-2023 MCV (RBC) [Entitic vol] 94.7 fL 80-94 [facility] Erythrocyte distribution wid th ratioOrdered By: Alison Reyes on 07-10-2023 Erythrocyte distribution width (RBC) [Ratio] 13.2 % 11.6-14.6 [facility] Erythrocyte distribution wid th standard deviationOrdered By: Alison Reyes on 07-10-2023 Erythrocyte distribution width (RBC) [Entitic vol] 45.7 fL 35.1-43.9 [facility] Hematocrit Auto (Bld) [Volum e fraction]Ordered By: Alison Reyes on 07-10-2023 Hematocrit (Bld) [Volume fraction] 42.6 % 40-54 [facility] Immature granulocytes/100 WB C Auto (Bld)Ordered By: Alison Reyes on 07-10-2023 Immature granulocytes/100 WBC (Bld) 0.400 % 0.0-0.9 [facility] Comment on above: IG% - Immature Granu locytes (promyelocytes, myelocytes and metamyelocytes) > 1% indicates that a LEFT SHIFT is Present. Ketones Test strip Ql (U)Ord ered By: Alison Reyes on 07-10-2023 Ketones Ql (U) 5 mg/dl Negative [facility] - Chemistry and C hemistry - challengeOrdered By: Alison Reyes on 07-10-2023 Albumin/Globulin [Mass ratio] 1.0 {ratio} 0.9-2.4 [facility] ALP [Catalytic activity/Vol] 104 U/L 45-117 [facility] ALT [Catalytic activity/Vol] 38 U/L 16-61 [facility] Cholesterol in HDL [Mass/Vol] 53 mg/dL >40 [facility] Comment on above: The drugs N-Acetylcy steine and Metamizole may falsely depress this assay. Reference Range HDL <40 mg/dL Low HDL Cholesterol HDL >or= 60 mg/dL High HDL Cholesterol Cholesterol in LDL [Mass/Vol] 48 mg/dL 0-130 [facility] CO2 [Moles/Vol] 27.0 mmol/L 21.0-32.0 [facility] Globulin (S) [Mass/Vol] 3.4 g/dL 2.2-4.2 [facility] Magnesium [Mass/Vol] 2.2 mg/dL 1.6-2.6 [facility] Urea nitrogen/Creatinine [Mass ratio] 12.8 mg/mg 10-20 [facility] - Hematology and Cell countsOrdered By: Alison Reyes on 07-10-2023 MCH (RBC) [Entitic mass] 29.8 pg 27.0-32.0 [facility] MCHC (RBC) [Mass/Vol] 31.5 g/dL 32-36 [facility] Nucleated RBC/100 WBC (Bld) [Ratio] 0 % 0-5 [facility] Platelet mean volume (Bld) [Entitic vol] 11.3 fL 6.2-12.0 [facility] Platelets (Bld) [#/Vol] 244 10*3/uL 150-450 [facility] Mucus LM Ql (Urine sed)Order ed By: Alison Reyes on 07-10-2023 Mucus Ql (Urine sed) 2+ /hpf [facility] Nitrite Test strip Ql (U)Ord ered By: Alison Reyes on 07-10-2023 Nitrite Ql (U) Negative Negative [facility] No Panel InformationOrdered By: Alison Reyes on 07-10-2023 Estimated GFR (MDRD) Amer 107 mL/min >60 [facility] Comment on above: GFR Calc Estimated GFR (MDRD) Non-Af Amer 88 mL/min >60 [facility] Comment on above: Non- GFR Calc Urine Microalbumin/Creatinine Ratio 8.6 mg/g CRE <30 [facility] Urine RBC 0 SEEN /hpf 0-5 [facility] VLDL Cholesterol 30 mg/dL 5-40 [facility] Protein Test strip Ql (U)Ord ered By: Alison Reyes on 07-10-2023 Protein Ql (U) 15 mg/dl Negative [facility] RBC Auto (Bld) [#/Vol]Ordere d By: Alison Reyes on 07-10-2023 RBC (Bld) [#/Vol] 4.50 10*6/uL 4.6-6.2 [facility] Serum or plasma calcium carmelita urement (mass/volume)Ordered By: Alison Reyes on 07-10-2023 Calcium [Mass/Vol] 8.8 mg/dL 8.5-10.1 [facility] Serum or plasma creatinine m easurement (mass/volume)Ordered By: Alison Reyes on 07-10-2023 Creatinine [Mass/Vol] 0.94 mg/dL 0.70-1.30 [facility] Comment on above: The validity of the calculated GFR & GFRAA in patients over 70 years has not been determined. Clinical correlation is essential. Serum or plasma thyroid stim ulating hormone (TSH) measurement (units/volume)Ordered By: Alison Reeys on 07-10-2023 TSH Qn 0.93 uIU/mL 0.358-3.74 [facility] Serum or plasma urea nitroge n measurement (mass/volume)Ordered By: Alison Reyes on 07-10-2023 Urea nitrogen [Mass/Vol] 12 mg/dL 7-18 [facility] Squamous epithelial cells de tection in urine sediment by light microscopyOrdered By: Alison Reyes on 07-10-2023 Epithelial cells.squamous LM Ql (Urine sed) 0 SEEN /hpf 0-5 [facility] Thin prep Papanicolaou smear with manual screeningOrdered By: Alison Reyes on 07-10-2023 Thin prep Papanicolaou smear with manual screening 3.4 g/dL 3.2-5.0 [facility] Thin prep Papanicolaou smear with manual screening 26 U/L 15-37 [facility] Thin prep Papanicolaou smear with manual screening 5 5-15 [facility] Thin prep Papanicolaou smear with manual screening 14.5 mg/L NO RANGE EST. [facility] Thin prep Papanicolaou smear with manual screening 1.25 ng/dL 0.76-1.46 [facility] Urine blood detectionOrdered By: Alison Reyes on 07-10-2023 RBC Ql (U) Negative Negative [facility] Urine clarityOrdered By: Tim Reyes on 07-10-2023 Clarity (U) Clear Clear [facility] Urine color determinationOrd ered By: Alison Reyes on 07-10-2023 Color (U) Yellow Yellow [facility] Urine creatinine measurement (mass/volume)Ordered By: Alison Reyes on 07-10-2023 Creatinine (U) [Mass/Vol] 169.00 mg/dL NO RANGE EST. [facility] Urine glucose detectionOrder ed By: Alison Reyes on 07-10-2023 Glucose Ql (U) Normal mg/dl Normal [facility] Urine leukocyte esterase det ection by dipstickOrdered By: Alison Reyes on 07-10-2023 Leukocyte esterase Test strip Ql (U) Negative Negative [facility] Urine pHOrdered By: Alison ashley on 07-10-2023 pH (U) 5.0 [pH] 5.0 - 8.0 [facility] Urine sediment bacteria coun t by microscopy (number/high power field)Ordered By: Alison Reyes on 07-10-2023 Bacteria LM.HPF (Urine sed) [#/Area] 0 /[HPF] None Seen [facility] Urine specific gravity measu rementOrdered By: Alison Reyes on 07-10-2023 Specific gravity (U) [Rel density] 1.025 1.002-1.030 [facility] Urine urobilinogen measureme ntOrdered By: Alison Reyes on 07-10-2023 Urobilinogen Ql (U) Normal mg/dl Normal [facility] Whole blood hemoglobin A1c/t otal hemoglobin ratio (mass fraction)Ordered By: Alison Reyes on 07-10-2023 HbA1c (Bld) [Mass fraction] 7.6 % 3.8-5.6 [facility] Comment on above: Normal < 5.7 % Predi abetic 5.7 - 6.4 % Diabetic >or= 6.5 % Please note range changes. Anaerobic cultureOrdered By: Selam Manzanares on 06-13-2023 Bacteria identified Anaer cx Nom (Unsp spec) No anaerobic bacteria isolated. [facility] Bacteria identified Cx Nom ( Wound)Ordered By: Selam Manzanares on 06-13-2023 Wound Culture Meth. resistant Stap h. aureus [facility] Gram stain for investigation of transfusion reactionOrdered By: Selam Manzanares on 06-13-2023 Microscopic observation Gram stain Nom (Unsp spec) [facility] Absolute lymphocyte countOrd ered By: Alison Reyes on 03-13-2023 Lymphocytes Auto (Unsp spec) [#/Vol] 2.77 10*3/uL 0.83-4.51 [facility] Basophil percentageOrdered B y: Alison Reyes on 03-13-2023 Basophils/100 WBC (Bld) 0.7 % 0-1 [facility] Bilirubin [Mass/Vol] 0.50 mg/dL 0.20-1.00 [facility] Comment on above: For patients on eltr ombopag therapy, use of Dimension [place] TBIL is not recommended. Chloride [Moles/Vol] 104 mmol/L 98-107 [facility] Cholesterol [Mass/Vol] 170 mg/dL <200 [facility] Comment on above: <200 mg/dL Desirable 200-240 mg/dL Borderline >240 mg/dL High Risk Eosinophils/100 WBC (Bld) 5.0 % 0-5 [facility] Glucose [Mass/Vol] 144 mg/dL 74-106 [facility] Comment on above: Fasting Glucose resu lt greater than or equal to 126 mg/dL suggests DIABETES MELLITUS per A.D.A. criteria. Neutrophils (Bld) [#/Vol] 5.7 10*3/uL 2.0-7.7 [facility] Neutrophils/100 WBC (Bld) 57.3 % 47-70 [facility] Potassium [Moles/Vol] 4.4 mmol/L 3.5-5.1 [facility] Protein [Mass/Vol] 7.4 g/dL 6.4-8.2 [facility] Sodium [Moles/Vol] 137 mmol/L 136-145 [facility] Triglyceride [Mass/Vol] 233 mg/dL <199 [facility] Comment on above: The drugs N-Acetylcy steine and Metamizole may falsely depress this assay.Serum Triglycerides Reference Interval Normal <150 mg/dL Borderline high 150 - 199 mg/dL High 200 - 499 mg/dL Very High > or = 500 mg/dL WBC (Bld) [#/Vol] 9.9 10*3/uL 4.4-11.0 [facility] Blood erythrocytes count (nu mber/volume)Ordered By: Alison Reyes on 03-13-2023 RBC (Bld) [#/Vol] 4.75 10*6/uL 4.6-6.2 [facility] Blood hemoglobin measurement (mass/volume)Ordered By: Alison Reyes on 03-13-2023 Hemoglobin (Bld) [Mass/Vol] 14.3 g/dL 13.0-16.5 [facility] Blood lymphocytes/100 leukoc ytesOrdered By: Alison Reyes on 03-13-2023 Lymphocytes/100 WBC (Bld) 28.0 % 19-41 [facility] Blood monocytes/100 leukocyt esOrdered By: Alison Reyes on 03-13-2023 Monocytes/100 WBC (Bld) 8.7 % 0-10 [facility] Blood platelet mean volumeOr dered By: Alison Reyes on 03-13-2023 Platelet mean volume (Bld) [Entitic vol] 11.5 fL 6.2-12.0 [facility] Determination of erythrocyte mean corpuscular volume (MCV)Ordered By: Alison Reyes on 03-13-2023 MCV (RBC) [Entitic vol] 93.7 fL 80-94 [facility] Hematocrit Auto (Bld) [Volum e fraction]Ordered By: Alison Reyes on 03-13-2023 Hematocrit (Bld) [Volume fraction] 44.5 % 40-54 [facility] - Chemistry and C hemistry - challengeOrdered By: Alison Reyes on 03-13-2023 ALP [Catalytic activity/Vol] 112 U/L 45-117 [facility] ALT [Catalytic activity/Vol] 31 U/L 16-61 [facility] CO2 [Moles/Vol] 26.0 mmol/L 21.0-32.0 [facility] Free T4 [Mass/Vol] 1.36 ng/dL 0.76-1.46 [facility] Globulin (S) [Mass/Vol] 3.9 g/dL 2.2-4.2 [facility] Urea nitrogen/Creatinine [Mass ratio] 17.6 mg/mg 10-20 [facility] - Hematology and Cell countsOrdered By: Alison Reyes on 03-13-2023 Erythrocyte distribution width (RBC) [Entitic vol] 43.5 fL 35.1-43.9 [facility] Erythrocyte distribution width (RBC) [Ratio] 12.5 % 11.6-14.6 [facility] Immature granulocytes/100 WBC (Bld) 0.300 % 0.0-0.9 [facility] Comment on above: IG% - Immature Granu locytes (promyelocytes, myelocytes and metamyelocytes) > 1% indicates that a LEFT SHIFT is Present. MCH (RBC) [Entitic mass] 30.1 pg 27.0-32.0 [facility] Nucleated RBC/100 WBC (Bld) [Ratio] 0 % 0-5 [facility] Auto (RBC) [Mass/Vol]Or dered By: Alison Reyes on 03-13-2023 MCHC (RBC) [Mass/Vol] 32.1 g/dL 32-36 [facility] No Panel InformationOrdered By: Alison Reyes on 03-13-2023 Estimated GFR (MDRD) Amer 104 mL/min >60 [facility] Comment on above: GFR Calc Estimated GFR (MDRD) Non-Af Amer 86 mL/min >60 [facility] Comment on above: Non- GFR Calc Thyroid Stimulating Hormone (TSH) 4.10 uIU/mL 0.358-3.74 [facility] Platelets bldOrdered By: Tim Reyes on 03-13-2023 Platelets (Bld) [#/Vol] 246 10*3/uL 150-450 [facility] Serum or plasma albumin carmelita urement (mass/volume)Ordered By: Alison Reyes on 03-13-2023 Albumin [Mass/Vol] 3.5 g/dL 3.2-5.0 [facility] Serum or plasma albumin/glob ulin mass ratioOrdered By: Alison Reyes on 03-13-2023 Albumin/Globulin [Mass ratio] 0.9 {ratio} 0.9-2.4 [facility] Serum or plasma calcium carmelita urement (mass/volume)Ordered By: Alison Reyes on 03-13-2023 Calcium [Mass/Vol] 9.2 mg/dL 8.5-10.1 [facility] Serum or plasma cholesterol in HDL measurement (mass/volume)Ordered By: Alison Reyes on 03-13-2023 Cholesterol in HDL [Mass/Vol] 70 mg/dL >40 [facility] Comment on above: The drugs N-Acetylcy steine and Metamizole may falsely depress this assay. Reference Range HDL <40 mg/dL Low HDL Cholesterol HDL >or= 60 mg/dL High HDL Cholesterol Serum or plasma cholesterol in VLDL measurement (mass/volume)Ordered By: Alison Reyes on 03-13-2023 Cholesterol in VLDL [Mass/Vol] 47 mg/dL 5-40 [facility] Serum or plasma creatinine m easurement (mass/volume)Ordered By: Alison Reyes on 03-13-2023 Creatinine [Mass/Vol] 0.97 mg/dL 0.70-1.30 [facility] Comment on above: The validity of the calculated GFR & GFRAA in patients over 70 years has not been determined. Clinical correlation is essential. Serum or plasma low density lipoprotein (LDL) cholesterol measurement (mass/volume)Ordered By: Alison Reyes on 03-13-2023 Cholesterol in LDL [Mass/Vol] 53 mg/dL 0-130 [facility] Serum or plasma urea nitroge n measurement (mass/volume)Ordered By: Alison Reyes on 03-13-2023 Urea nitrogen [Mass/Vol] 17 mg/dL 7-18 [facility] Thin prep Papanicolaou smear with manual screeningOrdered By: Alison Reyes on 03-13-2023 Thin prep Papanicolaou smear with manual screening 24 U/L 15-37 [facility] Thin prep Papanicolaou smear with manual screening 7 5-15 [facility] Whole blood hemoglobin A1c/t otal hemoglobin ratio (mass fraction)Ordered By: Alison Reyes on 03-13-2023 HbA1c (Bld) [Mass fraction] 6.7 % 3.8-5.6 [facility] Comment on above: Normal < 5.7 % Predi abetic 5.7 - 6.4 % Diabetic >or= 6.5 % Please note range changes. Absolute lymphocyte countOrd ered By: Saleem Bridges on 02-05-2023 Lymphocytes Auto (Unsp spec) [#/Vol] 1.46 10*3/uL 0.83-4.51 [facility] Basophil percentageOrdered B y: Saleem Bridges on 02-05-2023 Basophils/100 WBC (Bld) 0.6 % 0-1 [facility] Chloride [Moles/Vol] 110 mmol/L 98-107 [facility] Eosinophils/100 WBC (Bld) 4.2 % 0-5 [facility] Glucose [Mass/Vol] 131 mg/dL 74-106 [facility] Comment on above: Fasting Glucose resu lt greater than or equal to 126 mg/dL suggests DIABETES MELLITUS per A.D.A. criteria. Neutrophils (Bld) [#/Vol] 8.0 10*3/uL 2.0-7.7 [facility] Neutrophils/100 WBC (Bld) 73.8 % 47-70 [facility] Potassium [Moles/Vol] 4.2 mmol/L 3.5-5.1 [facility] Sodium [Moles/Vol] 140 mmol/L 136-145 [facility] WBC (Bld) [#/Vol] 10.9 10*3/uL 4.4-11.0 [facility] Blood erythrocytes count (nu mber/volume)Ordered By: Saleem Bridges on 02-05-2023 RBC (Bld) [#/Vol] 4.77 10*6/uL 4.6-6.2 [facility] Blood hemoglobin measurement (mass/volume)Ordered By: Saleem Bridges on 02-05-2023 Hemoglobin (Bld) [Mass/Vol] 14.3 g/dL 13.0-16.5 [facility] Blood lymphocytes/100 leukoc ytesOrdered By: Saleem Bridges on 02-05-2023 Lymphocytes/100 WBC (Bld) 13.4 % 19-41 [facility] Blood monocytes/100 leukocyt esOrdered By: Saleem Bridges on 02-05-2023 Monocytes/100 WBC (Bld) 7.4 % 0-10 [facility] Blood platelet mean volumeOr dered By: Saleem Bridges on 02-05-2023 Platelet mean volume (Bld) [Entitic vol] 10.9 fL 6.2-12.0 [facility] Determination of erythrocyte mean corpuscular volume (MCV)Ordered By: Saleem Bridges on 02-05-2023 MCV (RBC) [Entitic vol] 94.8 fL 80-94 [facility] Hematocrit Auto (Bld) [Volum e fraction]Ordered By: Saleem Bridges on 02-05-2023 Hematocrit (Bld) [Volume fraction] 45.2 % 40-54 [facility] Influenza virus A and B and SARS-CoV-2 (COVID-19) Ag panel - Upper respiratory specimOrdered By: Saleem Bridges on 02-05-2023 SARS-CoV-2 & FLU Antigen (Rapid) SARS-CoV-2 (COVID 19) [facility] SARS-CoV-2 & FLU Antigen (Rapid) SARS-CoV-2 (COVID 19) [facility] Laboratory - Chemistry and C hemistry - challengeOrdered By: Saleem Bridges on 02-05-2023 CO2 [Moles/Vol] 25.0 mmol/L 21.0-32.0 [facility] Natriuretic peptide B (Bld) [Mass/Vol] 92.2 pg/mL 0-100 [facility] Urea nitrogen/Creatinine [Mass ratio] 13.3 mg/mg 10-20 [facility] - Hematology and Cell countsOrdered By: Saleem Bridges on 02-05-2023 Erythrocyte distribution width (RBC) [Entitic vol] 43.0 fL 35.1-43.9 [facility] Erythrocyte distribution width (RBC) [Ratio] 12.5 % 11.6-14.6 [facility] Immature granulocytes/100 WBC (Bld) 0.600 % 0.0-0.9 [facility] Comment on above: IG% - Immature Granu locytes (promyelocytes, myelocytes and metamyelocytes) > 1% indicates that a LEFT SHIFT is Present. MCH (RBC) [Entitic mass] 30.0 pg 27.0-32.0 [facility] Nucleated RBC/100 WBC (Bld) [Ratio] 0 % 0-5 [facility] MCHC Auto (RBC) [Mass/Vol]Or dered By: Saleem Bridges on 02-05-2023 MCHC (RBC) [Mass/Vol] 31.6 g/dL 32-36 [facility] No Panel InformationOrdered By: Saleem Bridges on 02-05-2023 Estimated Creatinine Clearance Calc 92.74 ml/min [facility] Estimated GFR (MDRD) Amer 112 mL/min >60 [facility] Comment on above: GFR Calc Estimated GFR (MDRD) Non-Af Amer 93 mL/min >60 [facility] Comment on above: Non- GFR Calc Platelets bldOrdered By: Otto Bridges on 02-05-2023 Platelets (Bld) [#/Vol] 241 10*3/uL 150-450 [facility] Serum or plasma calcium carmelita urement (mass/volume)Ordered By: Saleem Bridges on 02-05-2023 Calcium [Mass/Vol] 8.9 mg/dL 8.5-10.1 [facility] Serum or plasma creatinine m easurement (mass/volume)Ordered By: Saleem Bridges on 02-05-2023 Creatinine [Mass/Vol] 0.90 mg/dL 0.70-1.30 [facility] Comment on above: The validity of the calculated GFR & GFRAA in patients over 70 years has not been determined. Clinical correlation is essential. Serum or plasma urea nitroge n measurement (mass/volume)Ordered By: Saleem Bridges on 02-05-2023 Urea nitrogen [Mass/Vol] 12 mg/dL 11-06 [facility] Thin prep Papanicolaou smear with manual screeningOrdered By: Saleem Bridges on 02-05-2023 Thin prep Papanicolaou smear with manual screening 09-03 [facility] .Auto Diffon 01-05-2023 Basophil, Absolute 0.1 10 3/mcL Normal 0.0-0.2 [facility] ([place]) Comment on above: Performed By: #### M DW, ANEU, LIP, ADIFF, CBC, CMP, GFR #### [address] [address] Basophils/100 WBC (Bld) 0.8 % Normal 0.0-2.5 [facility] ([place]) Comment on above: Performed By: #### M DW, ANEU, LIP, ADIFF, CBC, CMP, GFR #### [address] [address] Eosinophil, Absolute 0.2 10 3/mcL Normal 0.0-0.4 [facility] ([place]) Comment on above: Performed By: #### M DW, ANEU, LIP, ADIFF, CBC, CMP, GFR #### [address] [address] Eosinophils/100 WBC (Bld) 2.3 % Normal 0.0-7.0 [facility] ([place]) Comment on above: Performed By: #### M DW, ANEU, LIP, ADIFF, CBC, CMP, GFR #### [address] [address] Lymphocyte, Absolute 2.0 10 3/mcL Normal 0.8-3.9 [facility] ([place]) Comment on above: Performed By: #### M DW, ANEU, LIP, ADIFF, CBC, CMP, GFR #### [address] [address] Lymphocytes/100 WBC (Bld) 22.7 % Normal 10.0-50.0 [facility] ([place]) Comment on above: Performed By: #### M DW, ANEU, LIP, ADIFF, CBC, CMP, GFR #### [address] [address] Monocyte, Absolute 0.7 10 3/mcL Normal 0.2-1.0 [facility] ([place]) Comment on above: Performed By: #### M DW, ANEU, LIP, ADIFF, CBC, CMP, GFR #### [address] [address] Monocytes/100 WBC (Bld) 8.1 % Normal 1.7-13.0 [facility] ([place]) Comment on above: Performed By: #### M DW, ANEU, LIP, ADIFF, CBC, CMP, GFR #### [address] [address] Neutrophils/100 WBC (Bld) 66.1 % Normal 37.0-80.0 [facility] ([place]) Comment on above: Performed By: #### M DW, ANEU, LIP, ADIFF, CBC, CMP, GFR #### [address] [address] .GFRon 01-05-2023 GFR Non- 60 ml/min/1.73sqm Normal [facility] ([place]) Comment on above: Result Comment: GFR Population mean for , [...] 15 mL/min/1.73 square meters Performed By: #### M DW, ANEU, LIP, ADIFF, CBC, CMP, GFR #### [address] [address] GFR 73 ml/min/1.73sqm Normal [facility] ([place]) Comment on above: Result Comment: GFR Population mean for , [...] 15 mL/min/1.73 square meters Performed By: #### M DW, ANEU, LIP, ADIFF, CBC, CMP, GFR #### [address] [address] .MDWon 01-05-2023 Monocyte Distribution Width 15.45 Normal 0.00-20.00 [facility] ([place]) Comment on above: Result Comment: For ED adult patients suspected of sepsis, MDW<=20.0 does not rule out sepsis or risk of sepsis Performed By: #### M DW, ANEU, LIP, ADIFF, CBC, CMP, GFR #### [address] [address] .NEUABSon 01-05-2023 Neutrophil, Absolute 5.9 10 3/mcL Normal 2.9-6.2 [facility] ([place]) Comment on above: Performed By: #### M DW, ANEU, LIP, ADIFF, CBC, CMP, GFR #### [address] [address] CBCon 01-05-2023 Erythrocyte distribution width (RBC) [Ratio] 13.0 % Normal 11.5-14.5 [facility] ([place]) Comment on above: Performed By: #### M DW, ANEU, LIP, ADIFF, CBC, CMP, GFR #### [address] [address] Hematocrit (Bld) [Volume fraction] 43.3 % Normal 42.0-52.0 [facility] ([place]) Comment on above: Performed By: #### M DW, ANEU, LIP, ADIFF, CBC, CMP, GFR #### [address] [address] Hgb 14.9 G/dL Normal 14.0-18.0 [facility] ([place]) Comment on above: Performed By: #### M DW, ANEU, LIP, ADIFF, CBC, CMP, GFR #### [address] [address] MCH (RBC) [Entitic mass] 31.5 pg High 27.0-31.2 [facility] ([place]) Comment on above: Performed By: #### M DW, ANEU, LIP, ADIFF, CBC, CMP, GFR #### [place] [address] MCHC 34.5 G/dL Normal 31.8-35.4 [facility] ([place]) Comment on above: Performed By: #### M DW, ANEU, LIP, ADIFF, CBC, CMP, GFR #### [address] [address] MCV (RBC) [Entitic vol] 91.4 fL Normal 80.0-94.0 [facility] ([place]) Comment on above: Performed By: #### M DW, ANEU, LIP, ADIFF, CBC, CMP, GFR #### [address] [address] Platelet 239 10 3/mcL Normal 130-400 [facility] ([place]) Comment on above: Performed By: #### M DW, ANEU, LIP, ADIFF, CBC, CMP, GFR #### [place] [id number] Platelet mean volume (Bld) [Entitic vol] 8.7 fL Normal 7.4-10.4 [facility] ([place]) Comment on above: Performed By: #### M DW, ANEU, LIP, ADIFF, CBC, CMP, GFR #### [address] [address] RBC 4.74 10 6/mcL Normal 4.04-6.13 [facility] ([place]) Comment on above: Performed By: #### M DW, ANEU, LIP, ADIFF, CBC, CMP, GFR #### [address] [address] WBC 8.9 10 3/mcL Normal 4.6-10.8 [facility] ([place]) Comment on above: Performed By: #### M DW, ANEU, LIP, ADIFF, CBC, CMP, GFR #### [address] [address] CMPon 01-05-2023 Albumin Level 3.8 G/dL Normal 3.5-5.0 [facility] ([place]) Comment on above: Performed By: #### M DW, ANEU, LIP, ADIFF, CBC, CMP, GFR #### [address] [address] Albumin/Globulin [Mass ratio] 1.0 {ratio} Low 1.1-2.5 [facility] ([place]) Comment on above: Performed By: #### M DW, ANEU, LIP, ADIFF, CBC, CMP, GFR #### [address] [address] ALP [Catalytic activity/Vol] 117 U/L Normal 40-135 [facility] ([place]) Comment on above: Performed By: #### M DW, ANEU, LIP, ADIFF, CBC, CMP, GFR #### [address] [address] ALT [Catalytic activity/Vol] 39 U/L Normal 16-63 [facility] ([place]) Comment on above: Performed By: #### M DW, ANEU, LIP, ADIFF, CBC, CMP, GFR #### [address] [address] AST [Catalytic activity/Vol] 37 U/L Normal 10-40 [facility] ([place]) Comment on above: Performed By: #### M DW, ANEU, LIP, ADIFF, CBC, CMP, GFR #### [address] [address] Bili Total 0.5 mg/dL Normal 0.2-1.0 [facility] ([place]) Comment on above: Result Comment: Use of this assay is not recommended for patients undergoing treatment with eltrombopag due to the potential for falsely elevated results. Performed By: #### M DW, ANEU, LIP, ADIFF, CBC, CMP, GFR #### [address] [address] BUN/Creatinine Ratio 9 ratio Normal 7-27 [facility] ([place]) Comment on above: Performed By: #### M DW, ANEU, LIP, ADIFF, CBC, CMP, GFR #### [address] [address] Calcium [Mass/Vol] 9.4 mg/dL Normal 8.4-10.2 [facility] ([place]) Comment on above: Performed By: #### M DW, ANEU, LIP, ADIFF, CBC, CMP, GFR #### [address] [address] Chloride [Moles/Vol] 104 mmol/L Normal 98-107 [facility] ([place]) Comment on above: Performed By: #### M DW, ANEU, LIP, ADIFF, CBC, CMP, GFR #### [address] [address] CO2 [Moles/Vol] 29 mmol/L Normal 22-29 [facility] ([place]) Comment on above: Performed By: #### M DW, ANEU, LIP, ADIFF, CBC, CMP, GFR #### [address] [address] Creatinine [Mass/Vol] 1.25 mg/dL Normal 0.70-1.30 [facility] ([place] Comment on above: Performed By: #### M DW, ANEU, LIP, ADIFF, CBC, CMP, GFR #### [address] [address] Electrolyte Balance 7.0 mEq/L Normal 4.0-15.0 [facility] ([place]) Comment on above: Performed By: #### M DW, ANEU, LIP, ADIFF, CBC, CMP, GFR #### [address] [address] Globulin 3.7 G/dL Normal [facility] ([place]) Comment on above: Performed By: #### M DW, ANEU, LIP, ADIFF, CBC, CMP, GFR #### [address] [address] Glucose [Mass/Vol] 159 mg/dL High 70-105 [facility] ([place]) Comment on above: Performed By: #### M DW, ANEU, LIP, ADIFF, CBC, CMP, GFR #### [address] [address] Potassium [Moles/Vol] 4.8 mmol/L Normal 3.5-5.1 [facility] ([place] Comment on above: Performed By: #### M DW, ANEU, LIP, ADIFF, CBC, CMP, GFR #### [address] [address] Sodium [Moles/Vol] 140 mmol/L Normal 136-145 [facility] ([place]) Comment on above: Performed By: #### M DW, ANEU, LIP, ADIFF, CBC, CMP, GFR #### [address] [address] Total Protein 7.5 G/dL Normal 6.4-8.2 [facility] ([place]) Comment on above: Performed By: #### M DW, ANEU, LIP, ADIFF, CBC, CMP, GFR #### [address] [address] Urea nitrogen [Mass/Vol] 11 mg/dL Normal 7-18 [facility] ([place]) Comment on above: Performed By: #### M DW, ANEU, LIP, ADIFF, CBC, CMP, GFR #### [place] [address] [place], [place] [address] CT ABD/PELVIS W/ IV CONTRAST ONLYon 01-05-2023 CT ABD/PELVIS W/ IV CONTRAST ONLY ORIGINAL EXAMINATION: CT OF THE ABDOMEN AND PELVIS WITH CONTRAST 01/05/2023 2:27 am TECHNIQUE: CT of the abdomen and pelvis was performed with the administration of intravenous contrast. Multiplanar reformatted images are provided for review. Automated exposure control, iterative reconstruction, and/or weight based adjustment of the mA/kV was utilized to reduce the radiation dose to as low as reasonably achievable. COMPARISON: None. HISTORY: ORDERING SYSTEM PROVIDED HISTORY: Reason for Exam: Left flank pain FINDINGS: There is bilateral lower lobe atelectasis. Coronary artery calcifications. The liver, gallbladder, spleen, adrenal glands, pancreas, and right kidney are within normal limits. There is left renal delayed nephrogram and mild left hydroureteronephrosis secondary to a 3 mm stone at distal ureter just proximal to the left UVJ. The bladder is under distended but appears grossly unremarkable. The prostate gland is nonenlarged. Bilateral small fat containing inguinal hernias. No free fluid in the pelvis. Nondistended small and large bowel loops. Normal appendix. No free air. No lymphadenopathy. Atherosclerosis of the aorta without aneurysmal dilatation. Small fat containing umbilical hernia. Degenerative changes of the lumbar spine. Right hip arthroplasty changes. IMPRESSION: Mild left hydroureteronephrosis secondary to a 3 mm stone at the distal left ureter. I have personally reviewed the images of this examination and agree with the resident's findings and interpretation. Interpreted by: Stu Glynn MD Preliminary Report By: Jeanne Vivas Electronically signed By Stu Glynn MD Dictated Date: 01/05/2023 2:30:07 AM Prelim Date: 01/05/2023 2:36:16 AM Sign Date: 01/05/2023 3:04:10 AM Ordering Provider: PRABHJOT Daniels [facility] ([place]) LABORATORYOrdered By: SYSTEM SYSTEM on 01-05-2023 Albumin BCP dye [Mass/Vol] 3.8 G/dL Invalid Interpretation Code 3.5 - 5.0 G/dL AO ADM SS Albumin/Globulin [Mass ratio] 1.0 {ratio} Invalid Interpretation Code 1.1 - 2.5 ratio AO ADM SS ALP [Catalytic activity/Vol] 117 U/L Invalid Interpretation Code 40 - 135 U/L AO ADM SS ALT With P-5'-P [Catalytic activity/Vol] 39 U/L Invalid Interpretation Code 16 - 63 U/L AO ADM SS AST With P-5'-P [Catalytic activity/Vol] 37 U/L Invalid Interpretation Code 10 - 40 U/L AO ADM SS Basophil, Absolute 0.1 103/mcL Invalid Interpretation Code 0.0 - 0.2 10^3/mcL AO Workflow SS Basophils/100 WBC (Bld) 0.8 % Invalid Interpretation Code 0.0 - 2.5 % AO Workflow SS Bilirubin [Mass/Vol] 0.5 mg/dL Invalid Interpretation Code 0.2 - 1.0 mg/dL AO ADM SS Comment on above: Interpretive Data: U se of this assay is not recommended for patients undergoing treatment with eltrombopag due to the potential for falsely elevated results. Calcium [Mass/Vol] 9.4 mg/dL Invalid Interpretation Code 8.4 - 10.2 mg/dL AO ADM SS Chloride [Moles/Vol] 104 mmol/L Invalid Interpretation Code 98 - 107 mmol/L AO ADM SS CO2 [Moles/Vol] 29 mmol/L Invalid Interpretation Code 22 - 29 mmol/L AO ADM SS Creatinine [Mass/Vol] 1.25 mg/dL Invalid Interpretation Code 0.70 - 1.30 mg/dL AO ADM SS Electrolyte Balance 7.0 mEq/L Invalid Interpretation Code 4.0 - 15.0 mEq/L AO ADM SS Eosinophil, Absolute 0.2 103/mcL Invalid Interpretation Code 0.0 - 0.4 10^3/mcL AO Workflow SS Eosinophils/100 WBC (Bld) 2.3 % Invalid Interpretation Code 0.0 - 7.0 % AO Workflow SS Erythrocyte distribution width (RBC) [Ratio] 13.0 % Invalid Interpretation Code 11.5 - 14.5 % AO Workflow SS GFR/1.73 sq M.predicted among blacks MDRD (S/P/Bld) [Vol rate/Area] 73 ml/min/1.73sqm Invalid Interpretation Code AO Chemistry S Comment on above: Interpretive Data: GFR Population mean for , Non- Americans Ages 20-29 = 116 mL/min/1.73 sq.m. Ages 30-39 = 107 mL/min/1.73 sq.m. Ages 40-49 = 99 mL/min/1.73 sq.m. Ages 50-59 = 93 mL/min/1.73 sq.m. Ages 60-69 = 85 mL/min/1.73 sq.m. Ages 70+ = 75 mL/min/1.73 sq.m. Chronic Kidney Disease: Less than 60 mL/min/1.73 square meters End Stage Renal Disease: Less than 15 mL/min/1.73 square meters GFR/1.73 sq M.predicted among non-blacks MDRD (S/P/Bld) [Vol rate/Area] 60 ml/min/1.73sqm Invalid Interpretation Code AO Chemistry S Comment on above: Interpretive Data: GFR Population mean for , Non- Americans Ages 20-29 = 116 mL/min/1.73 sq.m. Ages 30-39 = 107 mL/min/1.73 sq.m. Ages 40-49 = 99 mL/min/1.73 sq.m. Ages 50-59 = 93 mL/min/1.73 sq.m. Ages 60-69 = 85 mL/min/1.73 sq.m. Ages 70+ = 75 mL/min/1.73 sq.m. Chronic Kidney Disease: Less than 60 mL/min/1.73 square meters End Stage Renal Disease: Less than 15 mL/min/1.73 square meters Globulin 3.7 G/dL Invalid Interpretation Code AO ADM SS Glucose [Mass/Vol] 159 mg/dL Invalid Interpretation Code 70 - 105 mg/dL AO ADM SS Hematocrit (Bld) [Volume fraction] 43.3 % Invalid Interpretation Code 42.0 - 52.0 % AO Workflow SS Hemoglobin (Bld) [Mass/Vol] 14.9 G/dL Invalid Interpretation Code 14.0 - 18.0 G/dL AO Workflow SS Lipase [Catalytic activity/Vol] 33 U/L Invalid Interpretation Code 16 - 77 U/L AO ADM SS Lymphocyte, Absolute 2.0 103/mcL Invalid Interpretation Code 0.8 - 3.9 10^3/mcL AO Workflow SS Lymphocytes/100 WBC (Bld) 22.7 % Invalid Interpretation Code 10.0 - 50.0 % AO Workflow SS MCH (RBC) [Entitic mass] 31.5 pg Invalid Interpretation Code 27.0 - 31.2 pg AO Workflow SS MCHC 34.5 G/dL Invalid Interpretation Code 31.8 - 35.4 G/dL AO Workflow SS MCV (RBC) [Entitic vol] 91.4 fL Invalid Interpretation Code 80.0 - 94.0 fL AO Workflow SS Monocyte distribution width Auto (Bld) [Entitic vol] 15.45 1 Invalid Interpretation Code 0.00 - 20.00 AO Workflow SS Comment on above: Result Comment: For ED adult patients suspected of sepsis, MDW<=20.0 does not rule out sepsis or risk of sepsis Monocyte, Absolute 0.7 103/mcL Invalid Interpretation Code 0.2 - 1.0 10^3/mcL AO Workflow SS Monocytes/100 WBC (Bld) 8.1 % Invalid Interpretation Code 1.7 - 13.0 % AO Workflow SS Neutrophil, Absolute 5.9 103/mcL Invalid Interpretation Code 2.9 - 6.2 10^3/mcL AO Workflow SS Neutrophils/100 WBC (Bld) 66.1 % Invalid Interpretation Code 37.0 - 80.0 % AO Workflow SS Platelet mean volume (Bld) [Entitic vol] 8.7 fL Invalid Interpretation Code 7.4 - 10.4 fL AO Workflow SS Platelets (Bld) [#/Vol] 239 103/mcL Invalid Interpretation Code 130 - 400 10^3/mcL AO Workflow SS Potassium [Moles/Vol] 4.8 mmol/L Invalid Interpretation Code 3.5 - 5.1 mmol/L AO ADM SS Protein [Mass/Vol] 7.5 G/dL Invalid Interpretation Code 6.4 - 8.2 G/dL AO ADM SS RBC (Bld) [#/Vol] 4.74 106/mcL Invalid Interpretation Code 4.04 - 6.13 10^6/mcL AO Workflow SS Sodium [Moles/Vol] 140 mmol/L Invalid Interpretation Code 136 - 145 mmol/L AO ADM SS Urea nitrogen [Mass/Vol] 11 mg/dL Invalid Interpretation Code 7 - 18 mg/dL AO ADM SS Urea nitrogen/Creatinine [Mass ratio] 9 ratio Invalid Interpretation Code 7 - 27 ratio AO ADM SS WBC (Bld) [#/Vol] 8.9 103/mcL Invalid Interpretation Code 4.6 - 10.8 10^3/mcL AO Workflow SS LABORATORYOrdered By: Jimena Billingsley on 01-05-2023 Appearance (U) Clear (9/16/23 1:28 AM) Invalid Interpretation Code Clear AO Auto Urine SS Bilirubin Ql (U) Negative (01/05/23 1:28 AM) Invalid Interpretation Code Negative AO Auto Urine SS Color (U) Yellow (01/05/23 1:28 AM) Invalid Interpretation Code AO Auto Urine SS Glucose Test strip (U) [Mass/Vol] Negative Invalid Interpretation Code Negative AO Auto Urine SS Hemoglobin Auto test strip (U) [Mass/Vol] Negative (01/05/23 1:28 AM) Invalid Interpretation Code Negative AO Auto Urine SS Ketones Ql (U) Trace mg/dL Invalid Interpretation Code Negative AO Auto Urine SS UA Leuk Est Negative (01/05/23 1:28 AM) Invalid Interpretation Code Negative AO Auto Urine SS UA Nitrite Negative (01/05/23 1:28 AM) Invalid Interpretation Code Negative AO Auto Urine SS UA pH 5.5 (01/05/23 1:28 AM) Invalid Interpretation Code 5.0 - 8.0 AO Auto Urine SS UA Protein Negative Invalid Interpretation Code Negative AO Auto Urine SS UA Spec Grav >=1.030 *ABN* (01/05/23 1:28 AM) Invalid Interpretation Code 1.015-1.025 AO Auto Urine SS UA Specimen Type Void (01/05/23 1:28 AM) Invalid Interpretation Code AO Auto Urine SS UA Urobilinogen 0.2 E.U./dL Invalid Interpretation Code 0.2-1.0 AO Auto Urine SS LIPon 01-05-2023 Lipase Level 33 U/L Normal 16-77 [facility] ([place]) Comment on above: Performed By: #### M DW, ANEU, LIP, ADIFF, CBC, CMP, GFR #### [address] [address] UAon 01-05-2023 Color (U) Yellow Normal [facility] ([place]) Comment on above: Performed By: #### U A #### [address] [address] Glucose (U) [Mass/Vol] Negative Normal Negative [facility] ([place]) Comment on above: Performed By: #### U A #### [address] [address] Ketones Ql (U) Trace Abnormal Negative [facility] ([place]) Comment on above: Performed By: #### U A #### [place] [address] UA Appear Clear Normal Clear [facility] ([place]) Comment on above: Performed By: #### U A #### [place] [id number] UA Blood Negative Normal Negative [facility] ([place]) Comment on above: Performed By: #### U A #### [place] [address] UA Leuk Est Negative Normal Negative [facility] ([place]) Comment on above: Performed By: #### U A #### [place] [address] UA Nitrite Negative Normal Negative [facility] ([place]) Comment on above: Performed By: #### U A #### [place] [address] UA pH 5.5 Normal 5.0 - 8.0 [facility] ([place]) Comment on above: Performed By: #### U A #### [place] [address] UA Protein Negative Normal Negative [facility] ([place]) Comment on above: Performed By: #### U A #### [place] [address] UA Spec Grav >=1.030 Abnormal 1.015-1.025 [facility] ([place]) Comment on above: Performed By: #### U A #### [place] [address] UA Specimen Type Void Normal [facility] ([place]) Comment on above: Performed By: #### U A #### [place] [address] UA Urobilinogen 0.2 E.U./dL Normal 0.2-1.0 [facility] ([place]) Comment on above: Performed By: #### U A #### [place] [id number] Urobilinogen (U) [Mass/Vol] Negative Normal Negative [facility] ([place]) Comment on above: Performed By: #### U A #### [facility] [address] [place], [place] [address] Absolute lymphocyte countOrd ered By: Alison Shookarpan on 11-22-2022 Lymphocytes Auto (Unsp spec) [#/Vol] 2.35 10*3/uL 0.83-4.51 [facility] Basophil percentageOrdered B y: Alison Eric on 11-22-2022 Basophils/100 WBC (Bld) 0.8 % 0-1 [facility] Bilirubin [Mass/Vol] 0.40 mg/dL 0.20-1.00 [facility] Comment on above: For patients on eltr ombopag therapy, use of Dimension [place] TBIL is not recommended. Chloride [Moles/Vol] 103 mmol/L 98-107 [facility] Cholesterol [Mass/Vol] 164 mg/dL <200 [facility] Comment on above: <200 mg/dL Desirable 200-240 mg/dL Borderline >240 mg/dL High Risk Eosinophils/100 WBC (Bld) 2.7 % 0-5 [facility] Glucose [Mass/Vol] 175 mg/dL 74-106 [facility] Comment on above: Fasting Glucose resu lt greater than or equal to 126 mg/dL suggests DIABETES MELLITUS per A.D.A. criteria. Neutrophils (Bld) [#/Vol] 4.4 10*3/uL 2.0-7.7 [facility] Neutrophils/100 WBC (Bld) 56.4 % 47-70 [facility] Potassium [Moles/Vol] 4.2 mmol/L 3.5-5.1 [facility] Protein [Mass/Vol] 7.5 g/dL 6.4-8.2 [facility] Sodium [Moles/Vol] 135 mmol/L 136-145 [facility] Triglyceride [Mass/Vol] 243 mg/dL <199 [facility] Comment on above: The drugs N-Acetylcy steine and Metamizole may falsely depress this assay.Serum Triglycerides Reference Interval Normal <150 mg/dL Borderline high 150 - 199 mg/dL High 200 - 499 mg/dL Very High > or = 500 mg/dL WBC (Bld) [#/Vol] 7.8 10*3/uL 4.4-11.0 [facility] Blood erythrocytes count (nu mber/volume)Ordered By: Alison Reyes on 11-22-2022 RBC (Bld) [#/Vol] 4.87 10*6/uL 4.6-6.2 [facility] Blood hemoglobin measurement (mass/volume)Ordered By: Alison Reyes on 11-22-2022 Hemoglobin (Bld) [Mass/Vol] 15.2 g/dL 13.0-16.5 [facility] Blood lymphocytes/100 leukoc ytesOrdered By: Alison Reyes on 11-22-2022 Lymphocytes/100 WBC (Bld) 30.0 % 19-41 [facility] Blood monocytes/100 leukocyt esOrdered By: Alison Reyes on 11-22-2022 Monocytes/100 WBC (Bld) 9.7 % 0-10 [facility] Blood platelet mean volumeOr dered By: Alison Reyes on 11-22-2022 Platelet mean volume (Bld) [Entitic vol] 11.2 fL 6.2-12.0 [facility] Determination of erythrocyte mean corpuscular volume (MCV)Ordered By: Alison Reyes on 11-22-2022 MCV (RBC) [Entitic vol] 91.2 fL 80-94 [facility] Hematocrit Auto (Bld) [Volum e fraction]Ordered By: Alison Reyes on 11-22-2022 Hematocrit (Bld) [Volume fraction] 44.4 % 40-54 [facility] - Chemistry and C hemistry - challengeOrdered By: Alison Reyes on 11-22-2022 ALP [Catalytic activity/Vol] 117 U/L 45-117 [facility] ALT [Catalytic activity/Vol] 51 U/L 16-61 [facility] CO2 [Moles/Vol] 26.0 mmol/L 21.0-32.0 [facility] Free T4 [Mass/Vol] 1.02 ng/dL 0.76-1.46 [facility] Globulin (S) [Mass/Vol] 4.0 g/dL 2.2-4.2 [facility] Magnesium [Mass/Vol] 2.2 mg/dL 1.6-2.6 [facility] Urea nitrogen/Creatinine [Mass ratio] 13.1 mg/mg 10-20 [facility] - Hematology and Cell countsOrdered By: Alison Reyes on 11-22-2022 Erythrocyte distribution width (RBC) [Entitic vol] 40.5 fL 35.1-43.9 [facility] Erythrocyte distribution width (RBC) [Ratio] 12.2 % 11.6-14.6 [facility] Immature granulocytes/100 WBC (Bld) 0.400 % 0.0-0.9 [facility] Comment on above: IG% - Immature Granu locytes (promyelocytes, myelocytes and metamyelocytes) > 1% indicates that a LEFT SHIFT is Present. MCH (RBC) [Entitic mass] 31.2 pg 27.0-32.0 [facility] Nucleated RBC/100 WBC (Bld) [Ratio] 0 % 0-5 [facility] MCHC Auto (RBC) [Mass/Vol]Or dered By: Alison Reyes on 11-22-2022 MCHC (RBC) [Mass/Vol] 34.2 g/dL 32-36 [facility] No Panel InformationOrdered By: Alison Reyes on 11-22-2022 Estimated GFR (MDRD) Amer 92 mL/min >60 [facility] Comment on above: GFR Calc Estimated GFR (MDRD) Non-Af Amer 76 mL/min >60 [facility] Comment on above: Non- GFR Calc Prostate Specific Antigen Screen 0.18 ng/mL 0.00-4.00 [facility] Comment on above: This test was perfor med using the TPSA assay method for the[employer] chemistry system. Values obtained with differentassay methods cannot be used interchangably.When changing PSA assays in the course of monitoring apatient, additional sequential testing should be carriedout to confirm baseline values. Thyroid Stimulating Hormone (TSH) 15.80 uIU/mL 0.358-3.74 [facility] Platelets bldOrdered By: Tim Reyes on 11-22-2022 Platelets (Bld) [#/Vol] 258 10*3/uL 150-450 [facility] Serum or plasma albumin carmelita urement (mass/volume)Ordered By: Alison Reyes on 11-22-2022 Albumin [Mass/Vol] 3.5 g/dL 3.2-5.0 [facility] Serum or plasma albumin/glob ulin mass ratioOrdered By: Alison Reyes on 11-22-2022 Albumin/Globulin [Mass ratio] 0.9 {ratio} 0.9-2.4 [facility] Serum or plasma calcium carmelita urement (mass/volume)Ordered By: Alison Reyes on 11-22-2022 Calcium [Mass/Vol] 9.7 mg/dL 8.5-10.1 [facility] Serum or plasma cholesterol in HDL measurement (mass/volume)Ordered By: Alison Reyes on 11-22-2022 Cholesterol in HDL [Mass/Vol] 50 mg/dL >40 [facility] Comment on above: The drugs N-Acetylcy steine and Metamizole may falsely depress this assay. Reference Range HDL <40 mg/dL Low HDL Cholesterol HDL >or= 60 mg/dL High HDL Cholesterol Serum or plasma cholesterol in VLDL measurement (mass/volume)Ordered By: Alison Reyes on 11-22-2022 Cholesterol in VLDL [Mass/Vol] 49 mg/dL 5-40 [facility] Serum or plasma creatinine m easurement (mass/volume)Ordered By: Alison Reyes on 11-22-2022 Creatinine [Mass/Vol] 1.07 mg/dL 0.70-1.30 [facility] Comment on above: The validity of the calculated GFR & GFRAA in patients over 70 years has not been determined. Clinical correlation is essential. Serum or plasma low density lipoprotein (LDL) cholesterol measurement (mass/volume)Ordered By: Alison Reyes on 11-22-2022 Cholesterol in LDL [Mass/Vol] 65 mg/dL 0-130 [facility] Serum or plasma urea nitroge n measurement (mass/volume)Ordered By: Alison Reyes on 11-22-2022 Urea nitrogen [Mass/Vol] 14 mg/dL 7-18 [facility] Thin prep Papanicolaou smear with manual screeningOrdered By: Alison Reyes on 11-22-2022 Thin prep Papanicolaou smear with manual screening 33 U/L 15-37 [facility] Thin prep Papanicolaou smear with manual screening 6 5-15 [facility] Whole blood hemoglobin A1c/t otal hemoglobin ratio (mass fraction)Ordered By: Alison Reyes on 11-22-2022 HbA1c (Bld) [Mass fraction] 7.8 % 3.8-5.6 [facility] Comment on above: Normal < 5.7 % Predi abetic 5.7 - 6.4 % Diabetic >or= 6.5 % Please note range changes. Absolute lymphocyte countOrd ered By: Dr. Reyes on 05-22-2022 Lymphocytes Auto (Unsp spec) [#/Vol] 2.74 10*3/uL 0.83-4.51 [facility] Basophil percentageOrdered B y: Dr. Reyes on 05-22-2022 Basophil percentage 0 SEEN /hpf 0-5 [facility] Basophils/100 WBC (Bld) 0.7 % 0-1 [facility] Bilirubin [Mass/Vol] 0.40 mg/dL 0.20-1.00 [facility] Comment on above: For patients on eltr ombopag therapy, use of Dimension [place] TBIL is not recommended. Chloride [Moles/Vol] 102 mmol/L 98-107 [facility] Cholesterol [Mass/Vol] 206 mg/dL <200 [facility] Comment on above: <200 mg/dL Desirable 200-240 mg/dL Borderline >240 mg/dL High Risk Eosinophils/100 WBC (Bld) 3.1 % 0-5 [facility] Glucose [Mass/Vol] 189 mg/dL 74-106 [facility] Comment on above: Fasting Glucose resu lt greater than or equal to 126 mg/dL suggests DIABETES MELLITUS per A.D.A. criteria. Neutrophils (Bld) [#/Vol] 5.4 10*3/uL 2.0-7.7 [facility] Neutrophils/100 WBC (Bld) 58.3 % 47-70 [facility] Potassium [Moles/Vol] 5.1 mmol/L 3.5-5.1 [facility] Protein [Mass/Vol] 7.7 g/dL 6.4-8.2 [facility] Sodium [Moles/Vol] 136 mmol/L 136-145 [facility] Triglyceride [Mass/Vol] 283 mg/dL <199 [facility] Comment on above: The drugs N-Acetylcy steine and Metamizole may falsely depress this assay.Serum Triglycerides Reference Interval Normal <150 mg/dL Borderline high 150 - 199 mg/dL High 200 - 499 mg/dL Very High > or = 500 mg/dL WBC (Bld) [#/Vol] 9.2 10*3/uL 4.4-11.0 [facility] Bilirubin Test strip Ql (U)O rdered By: Dr. Reyes on 05-22-2022 Bilirubin Ql (U) Negative Negative [facility] Blood erythrocytes count (nu mber/volume)Ordered By: Dr. Reyes on 05-22-2022 RBC (Bld) [#/Vol] 4.81 10*6/uL 4.6-6.2 [facility] Blood hemoglobin measurement (mass/volume)Ordered By: Dr. Reyes on 05-22-2022 Hemoglobin (Bld) [Mass/Vol] 15.0 g/dL 13.0-16.5 [facility] Blood lymphocytes/100 leukoc ytesOrdered By: Dr. Reyes on 05-22-2022 Lymphocytes/100 WBC (Bld) 29.9 % 19-41 [facility] Blood monocytes/100 leukocyt esOrdered By: Dr. Reyes on 05-22-2022 Monocytes/100 WBC (Bld) 7.5 % 0-10 [facility] Blood platelet mean volumeOr dered By: Dr. Reyes on 05-22-2022 Platelet mean volume (Bld) [Entitic vol] 11.1 fL 6.2-12.0 [facility] Determination of erythrocyte mean corpuscular volume (MCV)Ordered By: Dr. Reyes on 05-22-2022 MCV (RBC) [Entitic vol] 95.0 fL 80-94 [facility] Hematocrit Auto (Bld) [Volum e fraction]Ordered By: Dr. Reyes on 05-22-2022 Hematocrit (Bld) [Volume fraction] 45.7 % 40-54 [facility] Ketones Test strip Ql (U)Ord ered By: Dr. Reyes on 05-22-2022 Ketones Ql (U) Negative Negative [facility] - Chemistry and C hemistry - challengeOrdered By: Dr. Reyes on 05-22-2022 ALP [Catalytic activity/Vol] 122 U/L 45-117 [facility] ALT [Catalytic activity/Vol] 37 U/L 16-61 [facility] CO2 [Moles/Vol] 27.0 mmol/L 21.0-32.0 [facility] Globulin (S) [Mass/Vol] 4.0 g/dL 2.2-4.2 [facility] Magnesium [Mass/Vol] 2.3 mg/dL 1.6-2.6 [facility] Urea nitrogen/Creatinine [Mass ratio] 19.8 mg/mg 10-20 [facility] - Hematology and Cell countsOrdered By: Dr. Reyes on 05-22-2022 Erythrocyte distribution width (RBC) [Entitic vol] 43.5 fL 35.1-43.9 [facility] Erythrocyte distribution width (RBC) [Ratio] 12.4 % 11.6-14.6 [facility] Immature granulocytes/100 WBC (Bld) 0.500 % 0.0-0.9 [facility] Comment on above: IG% - Immature Granu locytes (promyelocytes, myelocytes and metamyelocytes) > 1% indicates that a LEFT SHIFT is Present. MCH (RBC) [Entitic mass] 31.2 pg 27.0-32.0 [facility] Nucleated RBC/100 WBC (Bld) [Ratio] 0 % 0-5 [facility] MCHC Auto (RBC) [Mass/Vol]Or dered By: Dr. Reyes on 05-22-2022 MCHC (RBC) [Mass/Vol] 32.8 g/dL 32-36 [facility] Mucus LM Ql (Urine sed)Order ed By: Dr. Reyes on 05-22-2022 Mucus Ql (Urine sed) 0 SEEN /hpf [facility] Nitrite Test strip Ql (U)Ord ered By: Dr. Reyes on 05-22-2022 Nitrite Ql (U) Negative Negative [facility] No Panel InformationOrdered By: Dr. Reyes on 05-22-2022 Estimated GFR (MDRD) Amer 99 mL/min >60 [facility] Comment on above: GFR Calc Estimated GFR (MDRD) Non-Af Amer 82 mL/min >60 [facility] Comment on above: Non- GFR Calc Thyroid Stimulating Hormone (TSH) 36.50 uIU/mL 0.358-3.74 [facility] Urine Microalbumin/Creatinine Ratio 7.6 mg/g CRE <30 [facility] Platelets bldOrdered By: Dr. Reyes on 05-22-2022 Platelets (Bld) [#/Vol] 289 10*3/uL 150-450 [facility] Protein Test strip Ql (U)Ord ered By: Dr. Reyes on 05-22-2022 Protein Ql (U) Negative Negative [facility] Serum or plasma albumin carmelita urement (mass/volume)Ordered By: Dr. Reyes on 05-22-2022 Albumin [Mass/Vol] 3.7 g/dL 3.2-5.0 [facility] Serum or plasma albumin/glob ulin mass ratioOrdered By: Dr. Reyes on 05-22-2022 Albumin/Globulin [Mass ratio] 0.9 {ratio} 0.9-2.4 [facility] Serum or plasma calcium carmelita urement (mass/volume)Ordered By: Dr. Reyes on 05-22-2022 Calcium [Mass/Vol] 9.4 mg/dL 8.5-10.1 [facility] Serum or plasma cholesterol in HDL measurement (mass/volume)Ordered By: Dr. Reyes on 05-22-2022 Cholesterol in HDL [Mass/Vol] 53 mg/dL >40 [facility] Comment on above: The drugs N-Acetylcy steine and Metamizole may falsely depress this assay. Reference Range HDL <40 mg/dL Low HDL Cholesterol HDL >or= 60 mg/dL High HDL Cholesterol Serum or plasma cholesterol in VLDL measurement (mass/volume)Ordered By: Dr. Reyes on 05-22-2022 Cholesterol in VLDL [Mass/Vol] 57 mg/dL 5-40 [facility] Serum or plasma creatinine m easurement (mass/volume)Ordered By: Dr. Reyes on 05-22-2022 Creatinine [Mass/Vol] 1.01 mg/dL 0.70-1.30 [facility] Comment on above: The validity of the calculated GFR & GFRAA in patients over 70 years has not been determined. Clinical correlation is essential. Serum or plasma low density lipoprotein (LDL) cholesterol measurement (mass/volume)Ordered By: Dr. Reyes on 05-22-2022 Cholesterol in LDL [Mass/Vol] 96 mg/dL 0-130 [facility] Serum or plasma urea nitroge n measurement (mass/volume)Ordered By: Dr. Reyes on 05-22-2022 Urea nitrogen [Mass/Vol] 20 mg/dL 7-18 [facility] Squamous epithelial cells de tection in urine sediment by light microscopyOrdered By: Dr. Reyes on 05-22-2022 Epithelial cells.squamous LM Ql (Urine sed) 0-5 SEEN /hpf 0-5 [facility] Thin prep Papanicolaou smear with manual screeningOrdered By: Dr. Reyes on 05-22-2022 Thin prep Papanicolaou smear with manual screening 31 U/L 15-37 [facility] Thin prep Papanicolaou smear with manual screening 7 5-15 [facility] Thin prep Papanicolaou smear with manual screening 6.5 mg/L NO RANGE EST. [facility] Urine blood detectionOrdered By: Dr. Reyes on 05-22-2022 RBC Ql (U) Negative Negative [facility] RBC Ql (U) 0 SEEN /hpf 0-5 [facility] Urine clarityOrdered By: Dr. Reyes on 05-22-2022 Clarity (U) Clear Clear [facility] Urine color determinationOrd ered By: Dr. Reyes on 05-22-2022 Color (U) Yellow Yellow [facility] Urine creatinine measurement (mass/volume)Ordered By: Dr. Reyes on 05-22-2022 Creatinine (U) [Mass/Vol] 84.80 mg/dL NO RANGE EST. [facility] Urine glucose detectionOrder ed By: Dr. Reyes on 05-22-2022 Glucose Ql (U) Normal mg/dl Normal [facility] Urine leukocyte esterase det ection by dipstickOrdered By: Dr. Reyes on 05-22-2022 Leukocyte esterase Test strip Ql (U) Negative Negative [facility] Urine pHOrdered By: Dr. Cherry pitts on 05-22-2022 pH (U) 6.0 [pH] 5.0 - 8.0 [facility] Urine sediment bacteria coun t by microscopy (number/high power field)Ordered By: Dr. Reyes on 05-22-2022 Bacteria LM.HPF (Urine sed) [#/Area] 0 /[HPF] None Seen [facility] Urine specific gravity measu rementOrdered By: Dr. Reyes on 05-22-2022 Specific gravity (U) [Rel density] 1.010 1.002-1.030 [facility] Urobilinogen Auto test strip Ql (U)Ordered By: Dr. Reyes on 05-22-2022 Urobilinogen Ql (U) Normal mg/dl Normal [facility] Whole blood hemoglobin A1c/t otal hemoglobin ratio (mass fraction)Ordered By: Dr. Reyes on 05-22-2022 HbA1c (Bld) [Mass fraction] 7.6 % 3.8-5.6 [facility] Comment on above: Normal < 5.7 % Predi abetic 5.7 - 6.4 % Diabetic >or= 6.5 % Please note range changes. Absolute lymphocyte countOrd ered By: Dr. Peterson on 04-16-2022 Lymphocytes Auto (Unsp spec) [#/Vol] 1.53 10*3/uL 0.83-4.51 [facility] Basophil percentageOrdered B y: Dr. Peterson on 04-16-2022 Basophils/100 WBC (Bld) 0.7 % 0-1 [facility] Bilirubin [Mass/Vol] 0.50 mg/dL 0.20-1.00 [facility] Comment on above: For patients on eltr ombopag therapy, use of Dimension [place] TBIL is not recommended. Chloride [Moles/Vol] 100 mmol/L 98-107 [facility] Eosinophils/100 WBC (Bld) 0.6 % 0-5 [facility] Glucose [Mass/Vol] 190 mg/dL 74-106 [facility] Comment on above: Fasting Glucose resu lt greater than or equal to 126 mg/dL suggests DIABETES MELLITUS per A.D.A. criteria. Neutrophils (Bld) [#/Vol] 6.2 10*3/uL 2.0-7.7 [facility] Neutrophils/100 WBC (Bld) 73.1 % 47-70 [facility] Potassium [Moles/Vol] 4.6 mmol/L 3.5-5.1 [facility] Comment on above: Slight Hemolysis, Re sult may be falsely increased. Protein [Mass/Vol] 8.2 g/dL 6.4-8.2 [facility] Sodium [Moles/Vol] 133 mmol/L 136-145 [facility] WBC (Bld) [#/Vol] 8.5 10*3/uL 4.4-11.0 [facility] Blood erythrocytes count (nu mber/volume)Ordered By: Dr. Peterson on 04-16-2022 RBC (Bld) [#/Vol] 4.94 10*6/uL 4.6-6.2 [facility] Blood hemoglobin measurement (mass/volume)Ordered By: Dr. Peterson on 04-16-2022 Hemoglobin (Bld) [Mass/Vol] 15.4 g/dL 13.0-16.5 [facility] Blood lymphocytes/100 leukoc ytesOrdered By: Dr. Peterson on 04-16-2022 Lymphocytes/100 WBC (Bld) 18.1 % 19-41 [facility] Blood monocytes/100 leukocyt esOrdered By: Dr. Peterson on 04-16-2022 Monocytes/100 WBC (Bld) 7.1 % 0-10 [facility] Blood platelet mean volumeOr dered By: Dr. Peterson on 04-16-2022 Platelet mean volume (Bld) [Entitic vol] 10.3 fL 6.2-12.0 [facility] Determination of erythrocyte mean corpuscular volume (MCV)Ordered By: Dr. Peterson on 04-16-2022 MCV (RBC) [Entitic vol] 89.9 fL 80-94 [facility] Hematocrit Auto (Bld) [Volum e fraction]Ordered By: Dr. Peterson on 04-16-2022 Hematocrit (Bld) [Volume fraction] 44.4 % 40-54 [facility] - Chemistry and C hemistry - challengeOrdered By: Dr. Peterson on 04-16-2022 ALP [Catalytic activity/Vol] 120 U/L 45-117 [facility] ALT [Catalytic activity/Vol] 35 U/L 16-61 [facility] CO2 [Moles/Vol] 24.0 mmol/L 21.0-32.0 [facility] Globulin (S) [Mass/Vol] 4.5 g/dL 2.2-4.2 [facility] Lipase [Catalytic activity/Vol] 102 U/L 73-393 [facility] Urea nitrogen/Creatinine [Mass ratio] 13.0 mg/mg 10-20 [facility] - Hematology and Cell countsOrdered By: Dr. Peterson on 04-16-2022 Erythrocyte distribution width (RBC) [Entitic vol] 39.9 fL 35.1-43.9 [facility] Erythrocyte distribution width (RBC) [Ratio] 12.1 % 11.6-14.6 [facility] Immature granulocytes/100 WBC (Bld) 0.400 % 0.0-0.9 [facility] Comment on above: IG% - Immature Granu locytes (promyelocytes, myelocytes and metamyelocytes) > 1% indicates that a LEFT SHIFT is Present. MCH (RBC) [Entitic mass] 31.2 pg 27.0-32.0 [facility] Nucleated RBC/100 WBC (Bld) [Ratio] 0 % 0-5 [facility] MCHC Auto (RBC) [Mass/Vol]Or dered By: Dr. Peterson on 04-16-2022 MCHC (RBC) [Mass/Vol] 34.7 g/dL 32-36 [facility] No Panel InformationOrdered By: Dr. Peterson on 04-16-2022 Estimated Creatinine Clearance Calc 78.19 ml/min [facility] Estimated GFR (MDRD) Amer 91 mL/min >60 [facility] Comment on above: GFR Calc Estimated GFR (MDRD) Non-Af Amer 76 mL/min >60 [facility] Comment on above: Non- GFR Calc Platelets bldOrdered By: Dr. Peterson on 04-16-2022 Platelets (Bld) [#/Vol] 277 10*3/uL 150-450 [facility] Serum or plasma albumin carmelita urement (mass/volume)Ordered By: Dr. Peterson on 04-16-2022 Albumin [Mass/Vol] 3.7 g/dL 3.2-5.0 [facility] Serum or plasma albumin/glob ulin mass ratioOrdered By: Dr. Peterson on 04-16-2022 Albumin/Globulin [Mass ratio] 0.8 {ratio} 0.9-2.4 [facility] Serum or plasma calcium carmelita urement (mass/volume)Ordered By: Dr. Peterson on 04-16-2022 Calcium [Mass/Vol] 10.1 mg/dL 8.5-10.1 [facility] Serum or plasma creatinine m easurement (mass/volume)Ordered By: Dr. Peterson on 04-16-2022 Creatinine [Mass/Vol] 1.08 mg/dL 0.70-1.30 [facility] Comment on above: The validity of the calculated GFR & GFRAA in patients over 70 years has not been determined. Clinical correlation is essential. Serum or plasma urea nitroge n measurement (mass/volume)Ordered By: Dr. Peterson on 04-16-2022 Urea nitrogen [Mass/Vol] 14 mg/dL 7-18 [facility] Thin prep Papanicolaou smear with manual screeningOrdered By: Dr. Peterson on 04-16-2022 Thin prep Papanicolaou smear with manual screening 29 U/L 15-37 [facility] Comment on above: Slight Hemolysis, Re sult may be falsely increased. Thin prep Papanicolaou smear with manual screening 9 5-15 [facility] Absolute lymphocyte counton 10-30-2021 Lymphocytes Auto (Unsp spec) [#/Vol] 2.64 10*3/uL 0.83-4.51 [facility] Work Phone: Basophil percentageon 2021 Basophils/100 WBC (Bld) 0.6 % 0-1 [facility] Work Phone: Bilirubin [Mass/Vol] 0.50 mg/dL 0.20-1.00 [facility] Work Phone: Comment on above: For patients on eltr ombopag therapy, use of Dimension [place] TBIL is not recommended. Chloride [Moles/Vol] 105 mmol/L 98-107 [facility] Work [facility]: Cholesterol [Mass/Vol] 141 mg/dL <200 [facility] Work Phone: Comment on above: <200 mg/dL Desirable 200-240 mg/dL Borderline >240 mg/dL High Risk Eosinophils/100 WBC (Bld) 2.9 % 0-5 [facility] Work Phone: Glucose [Mass/Vol] 129 mg/dL 74-106 [facility] Work Phone: Comment on above: Fasting Glucose resu lt greater than or equal to 126 mg/dL suggests DIABETES MELLITUS per A.D.A. criteria. Neutrophils (Bld) [#/Vol] 5.3 10*3/uL 2.0-7.7 [facility] Work Phone: [phone] Neutrophils/100 WBC (Bld) 58.8 % 47-70 [facility] Work Phone: Potassium [Moles/Vol] 4.7 mmol/L 3.5-5.1 [facility] Work Phone: Protein [Mass/Vol] 7.4 g/dL 6.4-8.2 [facility] Work Phone: Sodium [Moles/Vol] 139 mmol/L 136-145 [facility] Work Phone: [phone] Triglyceride [Mass/Vol] 200 mg/dL <199 [facility] Work Phone: Comment on above: The drugs N-Acetylcy steine and Metamizole may falsely depress this assay.Serum Triglycerides Reference Interval Normal <150 mg/dL Borderline high 150 - 199 mg/dL High 200 - 499 mg/dL Very High > or = 500 mg/dL WBC (Bld) [#/Vol] 9.0 10*3/uL 4.4-11.0 [facility] [facility] Work Phone: [phone] Blood erythrocytes count (nu mber/volume)on 10-30-2021 RBC (Bld) [#/Vol] 4.88 10*6/uL 4.6-6.2 [facility] Blood hemoglobin measurement (mass/volume)on 10-30-2021 Hemoglobin (Bld) [Mass/Vol] 14.5 g/dL 13.0-16.5 [facility] Work Phone: Blood lymphocytes/100 leukoc yteson 10-30-2021 Lymphocytes/100 WBC (Bld) 29.2 % 19-41 [facility] Work Phone: Blood monocytes/100 leukocyt eson 10-30-2021 Monocytes/100 WBC (Bld) 8.2 % 0-10 [facility] Work Phone: Blood platelet mean volumeon 10-30-2021 Platelet mean volume (Bld) [Entitic vol] 11.2 fL 6.2-12.0 [facility] Work Phone: Determination of erythrocyte mean corpuscular volume (MCV)on 10-30-2021 MCV (RBC) [Entitic vol] 93.6 fL 80-94 [facility] Work Phone: Hematocrit Auto (Bld) [Volum e fraction]on 10-30-2021 Hematocrit (Bld) [Volume fraction] 45.7 % 40-54 [facility] Work Phone: Laboratory - Chemistry and C hemistry - challengeon 10-30-2021 ALP [Catalytic activity/Vol] 101 U/L 45-117 [facility] Work Phone: ALT [Catalytic activity/Vol] 32 U/L 16-61 [facility] Work Phone: [phone] CO2 [Moles/Vol] 26.0 mmol/L 21.0-32.0 [facility] Work Phone: Free T4 [Mass/Vol] 1.71 ng/dL 0.76-1.46 [facility] Work Phone: [phone] Globulin (S) [Mass/Vol] 4.0 g/dL 2.2-4.2 [facility] Work Phone: Urea nitrogen/Creatinine [Mass ratio] 16.0 mg/mg 10-20 [facility] Work Phone: [phone] Laboratory - Hematology and Cell countson 10-30-2021 Erythrocyte distribution width (RBC) [Entitic vol] 42.1 fL 35.1-43.9 [facility] Work Phone: [phone] Erythrocyte distribution width (RBC) [Ratio] 12.1 % 11.6-14.6 [facility] Work Phone: [phone] Immature granulocytes/100 WBC (Bld) 0.300 % 0.0-0.9 [facility] Work Phone: [phone] Comment on above: IG% - Immature Granu locytes (promyelocytes, myelocytes and metamyelocytes) > 1% indicates that a LEFT SHIFT is Present. MCH (RBC) [Entitic mass] 29.7 pg 27.0-32.0 [facility] Work Phone: [phone] Nucleated RBC/100 WBC (Bld) [Ratio] 0 % 0-5 [facility] Work Phone: [phone] MCHC Auto (RBC) [Mass/Vol]on 10-30-2021 MCHC (RBC) [Mass/Vol] 31.7 g/dL 32-36 [facility] Work Phone: [phone] Panel Informationon 10-30 Estimated GFR (MDRD) Amer 128 mL/min >60 [facility] Work Phone: [phone] Comment on above: GFR Calc Estimated GFR (MDRD) Non-Af Amer 105 mL/min >60 [facility] Work Phone: [phone] Comment on above: Non- GFR Calc Thyroid Stimulating Hormone (TSH) 0.02 uIU/mL 0.358-3.74 [facility] Work Phone: [phone] Urine Microalbumin/Creatinine Ratio 5.8 mg/g CRE <30 [facility] Work Phone: Platelets bldon 10-30-2021 Platelets (Bld) [#/Vol] 299 10*3/uL 150-450 [facility] Work Phone: Serum or plasma albumin carmelita urement (mass/volume)on 10-30-2021 Albumin [Mass/Vol] 3.4 g/dL 3.2-5.0 [facility] Work Phone: Serum or plasma albumin/glob ulin mass ratioon 10-30-2021 Albumin/Globulin [Mass ratio] 0.8 {ratio} 0.9-2.4 [facility] Work Phone: Serum or plasma calcium carmelita urement (mass/volume)on 10-30-2021 Calcium [Mass/Vol] 9.5 mg/dL 8.5-10.1 [facility] Work Phone: Serum or plasma cholesterol in HDL measurement (mass/volume)on 10-30-2021 Cholesterol in HDL [Mass/Vol] 44 mg/dL >40 [facility] Work Phone: Comment on above: The drugs N-Acetylcy steine and Metamizole may falsely depress this assay. Reference Range HDL <40 mg/dL Low HDL Cholesterol HDL >or= 60 mg/dL High HDL Cholesterol Serum or plasma cholesterol in VLDL measurement (mass/volume)on 10-30-2021 Cholesterol in VLDL [Mass/Vol] 40 mg/dL 5-40 [facility] Work Phone: Serum or plasma creatinine m easurement (mass/volume)on 10-30-2021 Creatinine [Mass/Vol] 0.81 mg/dL 0.70-1.30 [facility] Work Phone: Comment on above: The validity of the calculated GFR & GFRAA in patients over 70 years has not been determined. Clinical correlation is essential. Serum or plasma low density lipoprotein (LDL) cholesterol measurement (mass/volume)on 10-30-2021 Cholesterol in LDL [Mass/Vol] 57 mg/dL 0-130 [facility] Work Phone: Serum or plasma urea nitroge n measurement (mass/volume)on 10-30-2021 Urea nitrogen [Mass/Vol] 13 mg/dL 7-18 [facility] Work Phone: Thin prep Papanicolaou smear with manual screeningon 10-30-2021 Thin prep Papanicolaou smear with manual screening 27 U/L 15-37 [facility] Work Phone: Thin prep Papanicolaou smear with manual screening 8 5-15 [facility] Work Phone: Thin prep Papanicolaou smear with manual screening 6.6 mg/L NO RANGE EST. [facility] Work Phone: Urine creatinine measurement (mass/volume)on 10-30-2021 Creatinine (U) [Mass/Vol] 114.00 mg/dL NO RANGE EST. [facility] Work Phone: Whole blood hemoglobin A1c/t otal hemoglobin ratio (mass fraction)on 10-30-2021 HbA1c (Bld) [Mass fraction] 6.1 % 3.8-5.6 [facility] Work Phone: Comment on above: Normal < 5.7 % Predi abetic 5.7 - 6.4 % Diabetic >or= 6.5 % Please note range changes. Absolute lymphocyte counton 08-02-2021 Lymphocytes Auto (Unsp spec) [#/Vol] 3.81 10*3/uL 0.83-4.51 [facility] Work Phone: Basophil percentageon 2021 Basophils/100 WBC (Bld) 1.0 % 0-1 [facility] Work Phone: [phone] Bilirubin [Mass/Vol] 0.30 mg/dL 0.20-1.00 [facility] Work Phone: [phone] Comment on above: For patients on eltr ombopag therapy, use of Dimension [place] TBIL is not recommended. Chloride [Moles/Vol] 105 mmol/L 98-107 [facility] Work Phone: Cholesterol [Mass/Vol] 156 mg/dL <200 [facility] Work Phone: [phone] Comment on above: <200 mg/dL Desirable 200-240 mg/dL Borderline >240 mg/dL High Risk Eosinophils/100 WBC (Bld) 3.0 % 0-5 [facility] Work Phone: Glucose [Mass/Vol] 138 mg/dL 74-106 [facility] Work Phone: Comment on above: Fasting Glucose resu lt greater than or equal to 126 mg/dL suggests DIABETES MELLITUS per A.D.A. criteria. Neutrophils (Bld) [#/Vol] 4.9 10*3/uL 2.0-7.7 [facility] Work Phone: Neutrophils/100 WBC (Bld) 49.4 % 47-70 [facility] Work Phone: Potassium [Moles/Vol] 5.3 mmol/L 3.5-5.1 [facility] Work Phone: [phone] Protein [Mass/Vol] 7.4 g/dL 6.4-8.2 [facility] Work Phone: Sodium [Moles/Vol] 136 mmol/L 136-145 [facility] Work Phone: Triglyceride [Mass/Vol] 191 mg/dL <199 [facility] Work Phone: Comment on above: The drugs N-Acetylcy steine and Metamizole may falsely depress this assay.Serum Triglycerides Reference Interval Normal <150 mg/dL Borderline high 150 - 199 mg/dL High 200 - 499 mg/dL Very High > or = 500 mg/dL WBC (Bld) [#/Vol] 9.9 10*3/uL 4.4-11.0 [facility] Work Phone: Blood erythrocytes count (nu mber/volume)on 08-02-2021 RBC (Bld) [#/Vol] 4.77 10*6/uL 4.6-6.2 [facility] Work Phone: [phone] Blood hemoglobin measurement (mass/volume)on 08-02-2021 Hemoglobin (Bld) [Mass/Vol] 14.4 g/dL 13.0-16.5 [facility] Work Phone: Blood lymphocytes/100 leukoc yteson 08-02-2021 Lymphocytes/100 WBC (Bld) 38.6 % 19-41 [facility] Work Phone: Blood monocytes/100 leukocyt eson 08-02-2021 Monocytes/100 WBC (Bld) 7.6 % 0-10 [facility] Work Phone: Blood platelet mean volumeon 08-02-2021 Platelet mean volume (Bld) [Entitic vol] 11.3 fL 6.2-12.0 [facility] Work Phone: Determination of erythrocyte mean corpuscular volume (MCV)on 08-02-2021 MCV (RBC) [Entitic vol] 97.7 fL 80-94 [facility] Work Phone: Hematocrit Auto (Bld) [Volum e fraction]on 08-02-2021 Hematocrit (Bld) [Volume fraction] 46.6 % 40-54 [facility] Work Phone: Laboratory - Chemistry and C hemistry - challengeon 08-02-2021 ALP [Catalytic activity/Vol] 118 U/L 45-117 [facility] Work Phone: ALT [Catalytic activity/Vol] 44 U/L 16-61 [facility] Work Phone: CO2 [Moles/Vol] 24.0 mmol/L 21.0-32.0 [facility] Work Phone: Free T4 [Mass/Vol] 0.84 ng/dL 0.76-1.46 [facility]: Globulin (S) [Mass/Vol] 3.9 g/dL 2.2-4.2 [facility] Work Phone: Urea nitrogen/Creatinine [Mass ratio] 16.9 mg/mg 10-20 [facility] Work Phone: Laboratory - Hematology and Cell countson 08-02-2021 Erythrocyte distribution width (RBC) [Entitic vol] 45.5 fL 35.1-43.9 [facility] Work Phone: Erythrocyte distribution width (RBC) [Ratio] 12.7 % 11.6-14.6 [facility] Work Phone: Immature granulocytes/100 WBC (Bld) 0.400 % 0.0-0.9 [facility] Work Phone: Comment on above: IG% - Immature Granu locytes (promyelocytes, myelocytes and metamyelocytes) > 1% indicates that a LEFT SHIFT is Present. MCH (RBC) [Entitic mass] 30.2 pg 27.0-32.0 [facility] Work Phone: Nucleated RBC/100 WBC (Bld) [Ratio] 0 % 0-5 [facility] Work Phone: [phone] MCHC Auto (RBC) [Mass/Vol]on 08-02-2021 MCHC (RBC) [Mass/Vol] 30.9 g/dL 32-36 [facility] Work Phone: No Panel Informationon 08-02 Estimated GFR (MDRD) Amer 115 mL/min >60 [facility] Work Phone: Comment on above: GFR Calc Estimated GFR (MDRD) Non-Af Amer 95 mL/min >60 [facility] Work Phone: Comment on above: Non- GFR Calc Thyroid Stimulating Hormone (TSH) 25.60 uIU/mL 0.358-3.74 [facility] Work Phone: Platelets bldon 08-02-2021 Platelets (Bld) [#/Vol] 304 10*3/uL 150-450 [facility] Work Phone: [phone] Serum or plasma albumin carmelita urement (mass/volume)on 08-02-2021 Albumin [Mass/Vol] 3.5 g/dL 3.2-5.0 [facility] Work Phone: [phone] Serum or plasma albumin/glob ulin mass ratioon 08-02-2021 Albumin/Globulin [Mass ratio] 0.9 {ratio} 0.9-2.4 [facility] Work Phone: [phone] Serum or plasma calcium carmelita urement (mass/volume)on 08-02-2021 Calcium [Mass/Vol] 9.0 mg/dL 8.5-10.1 [facility] Work Phone: Serum or plasma cholesterol in HDL measurement (mass/volume)on 08-02-2021 Cholesterol in HDL [Mass/Vol] 50 mg/dL >40 [facility] Work Phone: Comment on above: The drugs N-Acetylcy steine and Metamizole may falsely depress this assay. Reference Range HDL <40 mg/dL Low HDL Cholesterol HDL >or= 60 mg/dL High HDL Cholesterol Serum or plasma cholesterol in VLDL measurement (mass/volume)on 08-02-2021 Cholesterol in VLDL [Mass/Vol] 38 mg/dL 5-40 [facility] Work Phone: Serum or plasma creatinine m easurement (mass/volume)on 08-02-2021 Creatinine [Mass/Vol] 0.88 mg/dL 0.70-1.30 [facility] Work Phone: Comment on above: The validity of the calculated GFR & GFRAA in patients over 70 years has not been determined. Clinical correlation is essential. Serum or plasma low density lipoprotein (LDL) cholesterol measurement (mass/volume)on 08-02-2021 Cholesterol in LDL [Mass/Vol] 68 mg/dL 0-130 [facility] Work Phone: Serum or plasma urea nitroge n measurement (mass/volume)on 08-02-2021 Urea nitrogen [Mass/Vol] 15 mg/dL 7-18 [facility] Work Phone: [phone] Thin prep Papanicolaou smear with manual screeningon 08-02-2021 Thin prep Papanicolaou smear with manual screening 38 U/L 15-37 [facility] Work Phone: Thin prep Papanicolaou smear with manual screening 7 5-15 [facility] Work Phone: [phone] Whole blood hemoglobin A1c/t otal hemoglobin ratio (mass fraction)on 08-02-2021 HbA1c (Bld) [Mass fraction] 8.7 % 3.8-5.6 [facility] Work Phone: Comment on above: Normal < 5.7 % Predi abetic 5.7 - 6.4 % Diabetic >or= 6.5 % Please note range changes. Absolute lymphocyte counton 2021 Lymphocytes Auto (Unsp spec) [#/Vol] 2.96 10*3/uL 0.83-4.51 [facility] Work Phone: Basophil percentageon 2021 Basophil percentage 0 SEEN /hpf [facility] Work Phone: Basophils/100 WBC (Bld) 1.0 % 0-1 [facility] Work Phone: Bilirubin [Mass/Vol] 0.30 mg/dL 0.20-1.00 [facility] Work Phone: Comment on above: For patients on eltr ombopag therapy, use of Dimension [place] TBIL is not recommended. Chloride [Moles/Vol] 101 mmol/L 98-107 [facility] Work Phone: Cholesterol [Mass/Vol] 186 mg/dL <200 [facility] Work Phone: Comment on above: <200 mg/dL Desirable 200-240 mg/dL Borderline >240 mg/dL High Risk Eosinophils/100 WBC (Bld) 2.6 % 0-5 [facility] Work Phone: Glucose [Mass/Vol] 310 mg/dL 74-106 [facility] Work Phone: Comment on above: Glucose result great er than or equal to 200 mg/dLsuggests DIABETES MELLITUS per A.D.A. criteria. Neutrophils (Bld) [#/Vol] 4.1 10*3/uL 2.0-7.7 [facility] Work Phone: Neutrophils/100 WBC (Bld) 51.9 % 47-70 [facility] Work Phone: [phone] Potassium [Moles/Vol] 4.8 mmol/L 3.5-5.1 [facility] Work Phone: Protein [Mass/Vol] 7.6 g/dL 6.4-8.2 [facility] Work Phone: Sodium [Moles/Vol] 136 mmol/L 136-145 [facility] Work Phone: [phone] Triglyceride [Mass/Vol] 295 mg/dL [facility] Work Phone: [phone] Comment on above: The drugs N-Acetylcy steine and Metamizole may falsely depress this assay.Serum Triglycerides Reference Interval Normal <150 mg/dL Borderline high 150 - 199 mg/dL High 200 - 499 mg/dL Very High > or = 500 mg/dL WBC (Bld) [#/Vol] 8.0 10*3/uL 4.4-11.0 [facility] Work Phone: Bilirubin Test strip Ql (U)o 2021 Bilirubin Ql (U) Negative Negative [facility] Work Phone: [phone] Blood erythrocytes count (nu mber/volume)on 2021 RBC (Bld) [#/Vol] 4.78 10*6/uL 4.6-6.2 [facility] Work Phone: [phone] Blood hemoglobin measurement (mass/volume)on 2021 Hemoglobin (Bld) [Mass/Vol] 14.2 g/dL 13.0-16.5 [facility] Work Phone: Blood lymphocytes/100 leukoc yteson 2021 Lymphocytes/100 WBC (Bld) 37.2 % 19-41 [facility] Work Phone: [phone] Blood monocytes/100 leukocyt eson 2021 Monocytes/100 WBC (Bld) 6.8 % 0-10 [facility] Work Phone: [phone] Blood platelet mean volumeon 2021 Platelet mean volume (Bld) [Entitic vol] 11.4 fL 6.2-12.0 [facility] Work Phone: Determination of erythrocyte mean corpuscular volume (MCV)on 2021 MCV (RBC) [Entitic vol] 93.9 fL 80-94 [facility] Work Phone: [phone] Hematocrit Auto (Bld) [Volum e fraction]on 2021 Hematocrit (Bld) [Volume fraction] 44.9 % 40-54 [facility] Work Phone: [phone] Ketones Test strip Ql (U)on 2021 Ketones Ql (U) Negative Negative [facility] Work Phone: [phone] Laboratory - Chemistry and C hemistry - challengeon 2021 ALP [Catalytic activity/Vol] 141 U/L 45-117 [facility] Work Phone: [phone] ALT [Catalytic activity/Vol] 60 U/L 16-61 [facility] Work Phone: [phone] CO2 [Moles/Vol] 26.0 mmol/L 21.0-32.0 [facility] Work Phone: [phone] Free T4 [Mass/Vol] 1.10 ng/dL 0.76-1.46 [facility] Work Phone: [phone] Globulin (S) [Mass/Vol] 4.2 g/dL 2.2-4.2 [facility] Work Phone: [phone] Magnesium [Mass/Vol] 2.4 mg/dL 1.6-2.6 [facility] Work Phone: [phone] Urea nitrogen/Creatinine [Mass ratio] 17.1 mg/mg 10-20 [facility] Work Phone: [phone] Laboratory - Hematology and Cell countson 2021 Erythrocyte distribution width (RBC) [Entitic vol] 43.2 fL 35.1-43.9 [facility] Work Phone: [phone] Erythrocyte distribution width (RBC) [Ratio] 12.5 % 11.6-14.6 [facility] Work Phone: [phone] Immature granulocytes/100 WBC (Bld) 0.500 % 0.0-0.9 [facility] Work Phone: [phone] Comment on above: IG% - Immature Granu locytes (promyelocytes, myelocytes and metamyelocytes) > 1% indicates that a LEFT SHIFT is Present. MCH (RBC) [Entitic mass] 29.7 pg 27.0-32.0 [facility] Work Phone: Nucleated RBC/100 WBC (Bld) [Ratio] 0 % 0-5 [facility] Work Phone: [phone] MCHC Auto (RBC) [Mass/Vol]on 2021 MCHC (RBC) [Mass/Vol] 31.6 g/dL 32-36 [facility] Work Phone: Mucus LM Ql (Urine sed)on Mucus Ql (Urine sed) 0 SEEN /hpf [facility] Work Phone: [phone] Nitrite Test strip Ql (U)on 2021 Nitrite Ql (U) Negative Negative [facility] Work Phone: [phone] Panel Informationon 05-03 Estimated GFR (MDRD) Amer 108 mL/min >60 [facility] Work Phone: [phone] Comment on above: GFR Calc Estimated GFR (MDRD) Non-Af Amer 89 mL/min >60 [facility] Work Phone: [phone] Comment on above: Non- GFR Calc Thyroid Stimulating Hormone (TSH) 7.40 uIU/mL 0.358-3.74 [facility] Work Phone: [phone] Urine Microalbumin/Creatinine Ratio 16.2 mg/g CRE <30 [facility] Work Phone: Platelets bldon 2021 Platelets (Bld) [#/Vol] 386 10*3/uL 150-450 [facility] Work Phone: [phone] Protein Test strip Ql (U)on 2021 Protein Ql (U) 15 mg/dl Negative [facility] Work Phone: [phone] Serum or plasma albumin carmelita urement (mass/volume)on 2021 Albumin [Mass/Vol] 3.4 g/dL 3.2-5.0 [facility] Work Phone: [phone] Serum or plasma albumin/glob ulin mass ratioon 2021 Albumin/Globulin [Mass ratio] 0.8 {ratio} 0.9-2.4 [facility] Work Phone: Serum or plasma calcium carmelita urement (mass/volume)on 2021 Calcium [Mass/Vol] 9.6 mg/dL 8.5-10.1 [facility] Work Phone: Serum or plasma cholesterol in HDL measurement (mass/volume)on 2021 Cholesterol in HDL [Mass/Vol] 47 mg/dL [facility] Work Phone: Comment on above: The drugs N-Acetylcy steine and Metamizole may falsely depress this assay. Reference Range HDL <40 mg/dL Low HDL Cholesterol HDL >or= 60 mg/dL High HDL Cholesterol Serum or plasma cholesterol in VLDL measurement (mass/volume)on 2021 Cholesterol in VLDL [Mass/Vol] 59 mg/dL 5-40 [facility] Work Phone: Serum or plasma creatinine m easurement (mass/volume)on 2021 Creatinine [Mass/Vol] 0.94 mg/dL 0.70-1.30 [facility] Work Phone: Comment on above: The validity of the calculated GFR & GFRAA in patients over 70 years has not been determined. Clinical correlation is essential. Serum or plasma low density lipoprotein (LDL) cholesterol measurement (mass/volume)on 2021 Cholesterol in LDL [Mass/Vol] 80 mg/dL 0-130 [facility] Work Phone: [phone] Serum or plasma urea nitroge n measurement (mass/volume)on 2021 Urea nitrogen [Mass/Vol] 16 mg/dL 7-18 [facility] Work Phone: [phone] Squamous epithelial cells de tection in urine sediment by light microscopyon 2021 Epithelial cells.squamous LM Ql (Urine sed) 0 SEEN /hpf [facility] Work Phone: Thin prep Papanicolaou smear with manual screeningon 2021 Thin prep Papanicolaou smear with manual screening 31 U/L 15-37 [facility] Work Phone: Thin prep Papanicolaou smear with manual screening 9 5-15 [facility] Work Phone: [phone] Thin prep Papanicolaou smear with manual screening 29.0 mg/L NO RANGE EST. [facility] Work Phone: Urine blood detectionon 04-22 RBC Ql (U) Negative Negative [facility] Work Phone: RBC Ql (U) 0 SEEN /hpf [facility] Work Phone: Urine clarityon 2021 Clarity (U) Clear Clear [facility] Work Phone: Urine color determinationon 2021 Color (U) Yellow Yellow [facility] Work Phone: Urine creatinine measurement (mass/volume)on 2021 Creatinine (U) [Mass/Vol] 179.00 mg/dL NO RANGE EST. [facility] Work Phone: Urine glucose detectionon Glucose Ql (U) 1000 mg/dl Normal [facility] Work Phone: Urine leukocyte esterase det ection by dipstickon 2021 Leukocyte esterase Test strip Ql (U) Negative Negative [facility] Work Phone: Urine pHon 2021 pH (U) 5.0 [pH] [facility] Work Phone: Urine sediment bacteria coun t by microscopy (number/high power field)on 2021 Bacteria LM.HPF (Urine sed) [#/Area] 0 /[HPF] None Seen [facility] Work Phone: Urine specific gravity measu rementon 2021 Specific gravity (U) [Rel density] 1.025 [facility] Work Phone: Urobilinogen Auto test strip Ql (U)on 2021 Urobilinogen Ql (U) Normal mg/dl Normal [facility] Work Phone: Whole blood hemoglobin A1c/t otal hemoglobin ratio (mass fraction)on 2021 HbA1c (Bld) [Mass fraction] 10.1 % 3.8-5.6 [facility] Work Phone: Comment on above: Normal < 5.7 % Predi abetic 5.7 - 6.4 % Diabetic >or= 6.5 % Please note range changes. Bacteria identified Anaer cx Nom (Unsp spec) Anaerobic microbial culture No anaerobic bacteria isolated. [facility] Work Phone: Bacteria identified Cx Nom ( Wound) Wound Culture Meth. resistant Stap h. aureus [facility] Work Phone: Gram stain for investigation of transfusion reaction Microscopic observation Gram stain Nom (Unsp spec) [facility] Work Phone: Vital Signs Date Time Vital Sign Value Performing Clinician Facility 09-24-2024 09:30-0400 Body height 175.[address] Alison Reyes MD Work Phone: [facility] 09-24-2024 09:30-0400 Body mass index (BMI) [Ratio] 42.8 kg/m2 Dr. Alison Reyes MD Work Phone: [facility] 09-24-2024 09:30-0400 Body weight 131.[address] Alison Reyes MD Work Phone: [facility] 09-05-2024 21:11-0400 Body temperature 99.32 [degF] MELO OH DO [facility] 09-05-2024 21:11-0400 Diastolic Blood Pressure Non-Invasive 78 mm[Hg] MELO OH DO [facility] 09-05-2024 21:11-0400 Heart rate 80 /min MELO OH DO [facility] 09-05-2024 21:11-0400 Respiratory rate 18 /min MELO OH DO [facility] 09-05-2024 21:11-0400 Systolic Blood Pressure Non-Invasive 135 mm[Hg] MELO OH DO [facility] 09-02-2024 08:59-0400 Body height 175.[address] Alison Reyes MD Work Phone: [facility] 09-02-2024 08:59-0400 Body mass index (BMI) [Ratio] 57.7 kg/m2 Dr. Alison Reyes MD Work Phone: [facility] 09-02-2024 08:59-0400 Body weight 177.[address] Alison Reyes MD Work Phone: [facility] 09-02-2024 07:54-0400 Body height 175.[address] Alison Reyes MD Work Phone: [facility] 07-28-2024 13:14-0400 Body mass index (BMI) [Ratio] 58.3 kg/m2 Dr. Alison Reyes MD Work Phone: [facility] 07-28-2024 13:14-0400 Body weight 179.[address] Alison Reyes MD Work Phone: [facility] 06-05-2024 01:43-0500 Respiratory rate 18 /min TYRELL ESQUEDA DO [facility] 06-04-2024 23:48-0500 Body weight 177 kg TYRELL ESQUEDA DO [facility] 06-04-2024 23:48-0500 Diastolic Blood Pressure Non-Invasive 82 mm[Hg] TYRELL ESQUEDA DO [facility] 06-04-2024 23:48-0500 Heart rate 82 /min TYRELL ESQUEDA DO [facility] 06-04-2024 23:48-0500 Respiratory rate 20 /min TYRELL ESQUEDA DO [facility] 06-04-2024 23:48-0500 Systolic Blood Pressure Non-Invasive 142 mm[Hg] TYRELL ESQUEDA DO [facility] 05-15-2024 21:12-0500 Body temperature 98.2 [degF] Dr. Alison Reyes MD Work Phone: [facility] 05-15-2024 21:12-0500 Diastolic blood pressure 80 mm[Hg] Dr. Alison Reyes MD Work Phone: [facility] 05-15-2024 21:12-0500 Heart rate 72 /min Dr. Alison Reyes MD Work Phone: [facility] 05-15-2024 21:12-0500 Respiratory rate 22 /min Dr. Alison Reyes MD Work Phone: [facility] 05-15-2024 21:12-0500 SaO2% (BldA) [Mass fraction] 98 % Dr. Alison Reyes MD Work Phone: [facility] 05-15-2024 21:12-0500 Systolic blood pressure 160 mm[Hg] Dr. Alison Reyes MD Work Phone: [facility] 05-15-2024 18:05-0500 Body mass index (BMI) [Ratio] 59.6 kg/m2 Dr. Alison Reyes MD Work Phone: [facility] 05-15-2024 18:05-0500 Body weight 183.[address] Alison Reyes MD Work Phone: [facility] 08-04-2023 21:45-0400 Blood Pressure Cuff Size JESU HOLLAND MD [facility] 08-04-2023 21:45-0400 Blood Pressure Location JESU HOLLAND MD [facility] 08-04-2023 21:45-0400 Blood Pressure Method JESU HOLLAND MD [facility] 08-04-2023 21:45-0400 Body temperature 98.06 [degF] JESU HOLLAND MD [facility] 08-04-2023 21:45-0400 Diastolic Blood Pressure Non-Invasive 105 mm[Hg] JESU HOLLAND MD [facility] 08-04-2023 21:45-0400 Heart rate 105 /min JESU HOLLAND MD [facility] 08-04-2023 21:45-0400 Respiratory rate 20 /min JESU HOLLAND MD [facility] 08-04-2023 21:45-0400 Systolic Blood Pressure Non-Invasive 155 mm[Hg] JESU HOLLAND MD [facility] 06-13-2023 08:53-0500 Body temperature 96.9 [degF] Dr. Alison Reyes Work Phone: [facility] 06-13-2023 08:53-0500 Diastolic blood pressure 92 mm[Hg] Dr. Alison Reyes Work Phone: [facility] 06-13-2023 08:53-0500 Heart rate 82 /min Dr. Aliosn Reyes Work Phone: [facility] 06-13-2023 08:53-0500 Respiratory rate 18 /min Dr. Alison Reyes Work Phone: [facility] 06-13-2023 08:53-0500 SaO2% (BldA) [Mass fraction] 95 % Dr. Alison Reyes Work Phone: [facility] 06-13-2023 08:53-0500 Systolic blood pressure 194 mm[Hg] Dr. Alison Reyes Work Phone: [facility] 05-30-2023 23:46-0500 Blood Pressure Location MARIO ARTEAGA DO [facility] 05-30-2023 23:46-0500 Blood Pressure Method MARIO ARTEAGA DO [facility] 05-30-2023 23:46-0500 Body height 175.3 cm MARIO ARTEAGA DO [facility] 05-30-2023 23:46-0500 Body temperature 100.76 [degF] MARIO ARTEAGA DO [facility] 05-30-2023 23:46-0500 Body weight 181.8 kg MARIO ARTEAGA DO [facility] 05-30-2023 23:46-0500 Diastolic Blood Pressure Non-Invasive 83 mm[Hg] MARIO ARTEAGA DO [facility] 05-30-2023 23:46-0500 Heart rate 97 /min MARIO ARTEAGA DO [facility] 05-30-2023 23:46-0500 Respiratory rate 18 /min MARIO ARTEAGA DO [facility] 05-30-2023 23:46-0500 Systolic Blood Pressure Non-Invasive 150 mm[Hg] MARIO ARTEAGA DO [facility] 05-06-2023 13:42-0500 Body height 175.[address] Alison Reyes Work Phone: [facility] 05-06-2023 13:42-0500 Body mass index (BMI) [Ratio] 56.8 kg/m2 Dr. Alison Reyes Work Phone: [facility] 05-06-2023 13:42-0500 Body temperature 98 [degF] Dr. Alison Reyes Work Phone: [facility] 05-06-2023 13:42-0500 Body weight 174.[address] Alison Reyes Work Phone: [facility] 05-06-2023 13:42-0500 Diastolic blood pressure 93 mm[Hg] Dr. Alison Reyes Work Phone: [facility] 05-06-2023 13:42-0500 Heart rate 75 /min Dr. Alison Reyes Work Phone: [facility] 05-06-2023 13:42-0500 Respiratory rate 20 /min Dr. Alison Reyes Work Phone: [facility] 05-06-2023 13:42-0500 SaO2% (BldA) [Mass fraction] 96 % Dr. Alison Reyes Work Phone: [facility] 05-06-2023 13:42-0500 Systolic blood pressure 139 mm[Hg] Dr. Alison Reyes Work Phone: [facility] 04-29-2023 07:49-0500 Blood Pressure Location SWAPNIL CONTE MD [facility] 04-29-2023 07:49-0500 Blood Pressure Method SWAPNIL CONTE MD [facility] 04-29-2023 07:49-0500 Body temperature 97.88 [degF] SWAPNIL CONTE MD [facility] 04-29-2023 07:49-0500 Diastolic Blood Pressure Non-Invasive 92 mm[Hg] SWAPNIL CONTE MD [facility] 04-29-2023 07:49-0500 Heart rate 85 /min SWAPNIL CONTE MD [facility] 04-29-2023 07:49-0500 Respiratory rate 18 /min SWAPNIL CONTE MD [facility] 04-29-2023 07:49-0500 Systolic Blood Pressure Non-Invasive 150 mm[Hg] SWAPNIL CONTE MD [facility] 04-22-2023 17:47-0500 Body height 173 cm JESU HOLLAND MD [facility] 04-22-2023 17:47-0500 Body temperature 98.24 [degF] JESU HOLLAND MD [facility] 04-22-2023 17:47-0500 Body weight 177.3 kg JESU HOLLAND MD [facility] 04-22-2023 17:47-0500 Diastolic Blood Pressure Non-Invasive 98 mm[Hg] JESU HOLLAND MD [facility] 04-22-2023 17:47-0500 Heart rate 86 /min JESU HOLLAND MD [facility] 04-22-2023 17:47-0500 Respiratory rate 24 /min JESU HOLLAND MD [facility] 04-22-2023 17:47-0500 Systolic Blood Pressure Non-Invasive 167 mm[Hg] JESU HOLLAND MD [facility] 02-28-2023 16:33-0500 Diastolic Blood Pressure Non-Invasive [address] MARIA ISABEL DAWSON MD [facility] 02-28-2023 16:33-0500 Heart rate 78 /min DR MARIA ISABEL DAWSON MD [facility] 02-28-2023 16:33-0500 Respiratory rate 20 /min DR MARIA ISABEL DAWSON MD [facility] 02-28-2023 16:33-0500 Systolic Blood Pressure Non-Invasive [address] MARIA ISABEL DAWSON MD [facility] 02-28-2023 15:37-0500 Body height 175.[address] MARIA ISABEL DAWSON MD [facility] 02-28-2023 15:37-0500 Body temperature 98.78 [degF] DR MARIA ISABEL DAWSON MD [facility] 02-28-2023 15:37-0500 Body weight [address] MARIA ISABEL DAWSON MD [facility] 02-28-2023 15:37-0500 Diastolic Blood Pressure Non-Invasive [address] MARIA ISABEL DAWSON MD [facility] 02-28-2023 15:37-0500 Heart rate 77 /min DR MARIA ISABEL DAWSON MD [facility] 02-28-2023 15:37-0500 Respiratory rate 20 /min DR MARIA ISABEL DAWSON MD [facility] 02-28-2023 15:37-0500 Systolic Blood Pressure Non-Invasive [address] MARIA ISABEL DAWSON MD [facility] 02-05-2023 09:50-0400 Diastolic blood pressure 95 mm[Hg] Dr. Alison Reyes Work Phone: [facility] 02-05-2023 09:50-0400 Heart rate 82 /min Dr. Alison Reyes Work Phone: [facility] 02-05-2023 09:50-0400 Respiratory rate 17 /min Dr. Alison Reyes Work Phone: [facility] 02-05-2023 09:50-0400 SaO2% (BldA) [Mass fraction] 95 % Dr. Alison Reyes Work Phone: [facility] 02-05-2023 09:50-0400 Systolic blood pressure 158 mm[Hg] Dr. Alison Reyes Work Phone: [facility] 02-05-2023 08:12-0400 Body mass index (BMI) [Ratio] 60.5 kg/m2 Dr. Alison Reyes Work Phone: [facility] 02-05-2023 08:12-0400 Body weight [address] Alison Reyes Work Phone: [facility] 02-05-2023 07:58-0400 Body height 175.[address] Alison Reyes Work Phone: [facility] 02-05-2023 07:58-0400 Body temperature 97.6 [degF] Dr. Alison Reyes Work Phone: [facility] 01-05-2023 14:00-0400 Reason For Taking VItal Signs DR PRABHJOT DURAN MD [facility] 01-05-2023 03:05-0400 Body temperature 97.34 [degF] DR PRABHJOT DURAN MD [facility] 01-05-2023 03:05-0400 Diastolic Blood Pressure Non-Invasive [address] PRABHJOT DURAN MD [facility] 01-05-2023 03:05-0400 Heart rate 86 /min DR PRABHJOT DURAN MD [facility] 01-05-2023 03:05-0400 Respiratory rate 18 /min DR PRABHJOT DURAN MD [facility] 01-05-2023 03:05-0400 Systolic Blood Pressure Non-Invasive [address] PRABHJOT DURAN MD [facility] 01-05-2023 01:16-0400 Body height 175.[address] PRABHJOT DURNA MD [facility] 01-05-2023 01:16-0400 Body temperature 97.16 [degF] DR PRABHJOT DURAN MD [facility] 01-05-2023 01:16-0400 Body weight 175.[address] PRABHJOT DURAN MD [facility] 01-05-2023 01:16-0400 Diastolic Blood Pressure Non-Invasive [address] PRABHJOT DURAN MD [facility] 01-05-2023 01:16-0400 Heart rate 89 /min DR PRABHJOT DURAN MD [facility] 01-05-2023 01:16-0400 Respiratory rate 20 /min DR PRABHJOT DURAN MD [facility] 01-05-2023 01:16-0400 Systolic Blood Pressure Non-Invasive [address] PRABHJOT DURAN MD [facility] 04-16-2022 10:54-0500 Diastolic blood pressure 80 mm[Hg] Dr. Alison Reyes Work Phone: [facility] 04-16-2022 10:54-0500 Heart rate 79 /min Dr. Alison Reyes Work Phone: [facility] 04-16-2022 10:54-0500 Respiratory rate 18 /min Dr. Alison Reyes Work Phone: [facility] 04-16-2022 10:54-0500 SaO2% (BldA) [Mass fraction] 96 % Dr. Alison Reyes Work Phone: [facility] 04-16-2022 10:54-0500 Systolic blood pressure 178 mm[Hg] Dr. Alison Reyes Work Phone: [facility] 04-16-2022 07:48-0500 Body height 175.[address] Alison Reyes Work Phone: [facility] 04-16-2022 07:48-0500 Body mass index (BMI) [Ratio] 59.3 kg/m2 Dr. Alison Reyes Work Phone: [facility] 04-16-2022 07:48-0500 Body temperature 97.6 [degF] Dr. Alison Reyes Work Phone: [facility] 04-16-2022 07:48-0500 Body weight 182.[address] Alison Reyes Work Phone: [facility] 02-17-2022 14:45-0400 Body height 175.[address] Alison Reyes Work Phone: [facility] Work Phone: 02-17-2022 14:45-0400 Body mass index (BMI) [Ratio] 60 kg/m2 Dr. Alison Reyes Work Phone: [facility] 02-17-2022 14:45-0400 Body temperature 98.1 [degF] Dr. Alison Reyes Work Phone: [facility] 02-17-2022 14:45-0400 Body weight 184.[address] Aliosn Reyes Work Phone: [facility] 02-17-2022 14:45-0400 Diastolic blood pressure 91 mm[Hg] Dr. Alison Reyes Work Phone: [facility] 02-17-2022 14:45-0400 Heart rate 81 /min Dr. Alison Reyes Work Phone: [facility] 02-17-2022 14:45-0400 Respiratory rate 16 /min Dr. Alison Reyes Work Phone: [facility] 02-17-2022 14:45-0400 SaO2% (BldA) [Mass fraction] 97 % Dr. Alison Reyes Work Phone: [facility] 02-17-2022 14:45-0400 Systolic blood pressure 184 mm[Hg] Dr. Alison Reyes Work Phone: [facility] 01-24-2022 09:15-0400 Body mass index (BMI) [Ratio] 60 kg/m2 Dr. Alison Reyes Work Phone: [facility] Work Phone: 01-24-2022 09:15-0400 Body weight 179.[address] Alison Reyes Work Phone: [facility] Work Phone: 06-12-2021 18:04-0500 Heart rate 82 /min [facility] Work Phone: 06-12-2021 18:04-0500 Respiratory rate 18 /min [facility] Work Phone: 06-12-2021 18:04-0500 SaO2% (BldA) [Mass fraction] 97 % [facility] Work Phone: 06-12-2021 17:51-0500 Body height 205.74 cm [facility] Work Phone: 06-12-2021 17:51-0500 Body mass index (BMI) [Ratio] 40.7 kg/m2 [facility] Work Phone: 06-12-2021 17:51-0500 Body temperature 96.8 [degF] [facility] Work Phone: 06-12-2021 17:51-0500 Body weight 172.36 kg [facility] Work Phone: 06-12-2021 17:51-0500 Diastolic blood pressure 105 mm[Hg] [facility] Work Phone: 06-12-2021 17:51-0500 Systolic blood pressure 196 mm[Hg] [facility] Work Phone: 04-16-2021 19:15-0500 Body temperature 97.5 [degF] [facility] Work Phone: 04-16-2021 19:15-0500 Heart rate 78 /min [facility] Work Phone: 04-16-2021 19:15-0500 SaO2% (BldA) [Mass fraction] 98 % [facility] Work Phone: 04-16-2021 17:36-0500 Body mass index (BMI) [Ratio] 53.1 kg/m2 [facility] Work Phone: 04-16-2021 17:36-0500 Body weight 167.82 kg [facility] Work Phone: 04-16-2021 17:36-0500 Diastolic blood pressure 84 mm[Hg] [facility] Work Phone: 04-16-2021 17:36-0500 Respiratory rate 16 /min [facility] Work Phone: 04-16-2021 17:36-0500 Systolic blood pressure 180 mm[Hg] [facility] Work Phone: Encounters Encounter Date Encounter Type Care Provider Facility Start: 10-15-2024 ambulatory Alison Chin y:[facility] Start: 10-08-2024 End: 10-08-2024 Patient encounter procedure Juani Turcios DIAGNOSTICS TECHAntonioC -[facility] Work Phone: Start: 10-08-2024 End: 10-08-[address] Alison Reyes MD Work Phone: [facility] Work Phone: Start: 10-06-2024 End: 10-06-[address] Alison Reyes MD Work Phone: [facility] Work Phone: Start: 10-06-2024 End: 10-06-[address] Alison Reyes MD -Laboratory [facility] Start: 10-06-2024 End: 10-06-2024 ambulatory Alison Reyes Facility:[facility] Start: 09-24-2024 End: 09-24-2024 Patient encounter procedure Edna Garcia PA-C -[facility] Work Phone: Start: 09-24-2024 End: 09-24-[address] Alison Reyes MD Work Phone: [facility] Work Phone: Start: 09-10-2024 End: 09-10-2024 Patient encounter procedure Ednaen Garcia PA-C -[facility] Work Phone: Start: 09-10-2024 End: 09-10-[address] Alison Reyes MD Work Phone: [facility] Work Phone: Start: 09-09-2024 ambulatory Alison Chin y:[facility] Start: 09-05-2024 End: 09-05-2024 Emergency department patient visit MELO OH DO [facility] Start: 09-03-2024 End: 09-03-[address] Alison Reyes MD Work Phone: [facility] Work Phone: Start: 09-03-2024 End: 09-03-2024 Patient encounter procedure Edna Garcia PA-C -[facility] Work Phone: Start: 09-03-2024 End: 09-03-2024 Patient encounter procedure Edna Garcia PA-C -[facility] Work Phone: Start: 09-03-2024 End: 09-03-[address] Alison Reyes MD Work Phone: [facility] Work Phone: Start: 09-02-2024 End: 09-02-[address] Arden Oviedo MD -[facility] Start: 09-02-2024 End: 09-03-[address] Alison Reyes MD Work Phone: [facility] Work Phone: Start: 07-28-2024 End: 07-28-2024 Patient encounter procedure Edna Garcia PA-C -[facility] Work Phone: Start: 07-28-2024 End: 07-28-2024 ambulatory Alison Reyes Facility:[facility] Start: 06-24-2024 End: 06-24-[address] Alison Reyes MD Work Phone: [facility] Work Phone: Start: 06-24-2024 End: 06-24-[address] Alison Reyes MD -[facility]iology, [facility] Work Phone: Start: 06-24-2024 End: 06-24-2024 ambulatory Alison Reyes Facility:[facility] Start: 06-19-2024 ambulatory Alison Reyes Facilit y:[facility] Start: 06-12-2024 End: 06-12-[address] Abner Kelly MD -Physical Therapy Work Phone: Start: 06-12-2024 End: 06-12-2024 ambulatory Abner Kelly Facility:[facility] Start: 06-04-2024 End: 06-05-2024 Emergency department patient visit TYRELL ESQUEDA DO [facility] Start: 06-03-2024 End: 06-03-2024 Patient encounter procedure Edna Garcia PA-C -[facility] Work Phone: Start: 06-03-2024 End: 06-03-2024 ambulatory Alison Reyes Facility:[facility] Start: 05-19-2024 End: 05-19-[address] [facility] Start: 05-19-2024 End: 05-19-2024 ambulatory Alison Reyes Facility:[facility] Start: 05-15-2024 End: 05-15-2024 Emergency department patient visit Dr. Tamy Tanner DO -Emergency Department Work Phone: Start: 05-13-2024 End: 05-13-2024 Patient encounter procedure Edna Garcia PA-C -[facility] Work Phone: Start: 05-13-2024 End: 05-13-2024 ambulatory Alison Reyes Facility:[facility] Start: 05-12-2024 ambulatory Alison Reyes Facilit y:[facility] Start: 04-06-2024 End: 04-06-2024 Patient encounter procedure Edna Garcia PA-C -[facility] Work Phone: Start: 04-06-2024 End: 04-06-2024 ambulatory Alison Reyes Facility:[facility] Start: 03-17-2024 End: 03-17-[address] Selam Manzanares MD -[facility] Work Phone: Start: 03-17-2024 End: 03-17-2024 ambulatory Selam Manzanares Facility:[facility] Start: 03-12-2024 ambulatory Martha Bateman Facility:[facility] Start: 02-24-2024 End: 02-24-2024 ambulatory Alison Reyes Facility:[facility] Start: 02-13-2024 End: 02-13-2024 ambulatory Alison Reyes Facility:[facility] Start: 02-12-2024 End: 02-12-2024 ambulatory Alison Reyes Facility:[facility] Start: 01-31-2024 End: 01-31-2024 Emergency department patient visit Rey Torres Facility:[facility] Start: 01-14-2024 End: 01-14-2024 ambulatory Alison Reyes Facility:[facility] Start: 10-22-2023 End: 10-22-2023 ambulatory Alison Reyes Facility:[facility] Start: 08-04-2023 End: 08-05-2023 Emergency department patient visit JESU HOLLAND MD Facility:[facility] Start: 08-04-2023 End: 08-04-2023 Emergency department patient visit JESU HOLLAND MD [facility] Start: 07-10-2023 End: 07-10-[address] Alison Reyes Work Phone: [facility] Work Phone: Start: 07-10-2023 End: 07-10-[address] Alison Reyes Work Phone: [facility] Start: 06-28-2023 End: 06-28-[address] Alison Reyes Work Phone: [facility] Work Phone: Start: 06-14-2023 End: 06-14-[address] Alison Reyes Work Phone: [facility] [employer] Work Phone: Start: 06-13-2023 End: 06-13-[address] [facility] Start: 06-13-2023 End: 06-13-[address] Alison Reyes Work Phone: [facility] Work Phone: Start: 05-31-2023 End: 05-31-2023 Emergency department patient visit MARIO ARTEAGA DO Facility:[facility] Start: 05-30-2023 End: 05-31-2023 Emergency department patient visit MARIO ARTEAGA DO [facility] Start: 05-06-2023 End: 05-06-[address] Alison Reyes Work Phone: [facility] Work Phone: Start: 04-29-2023 End: 04-29-2023 Emergency department patient visit NOT RECORDED PHYSICIAN Facility:[facility] Start: 04-29-2023 End: 04-29-2023 Emergency department patient visit SWAPNIL CONTE MD [facility] Start: 04-22-2023 End: 04-22-2023 Emergency department patient visit NOT RECORDED PHYSICIAN Facility:[facility] Start: 04-22-2023 End: 04-22-2023 Emergency department patient visit JESU HOLLAND MD [facility] Start: 04-19-2023 End: 04-19-[address] Alison Reyes Work Phone: [facility] Work Phone: Start: 04-12-2023 End: 04-12-[address] Alison Reyes Work Phone: [facility] Work Phone: Start: 03-13-2023 End: 03-13-[address] Alison Reyes Work Phone: [facility] Work Phone: Start: 03-13-2023 End: 03-13-[address] Alison Reyes Work Phone: [facility] Work Phone: Start: 02-28-2023 End: 02-28-2023 Emergency department patient visit NOT RECORDED PHYSICIAN Facility:B Start: 02-28-2023 End: 02-28-2023 Emergency department patient visit DR MARIA ISABEL DAWSON MD [facility] Start: 02-05-2023 End: 02-05-2023 Emergency department patient visit Dr. Alison Reyes Work Phone: [facility]-Emergency Department Work Phone: Start: 01-05-2023 End: 01-05-2023 Emergency department patient visit DESIRAE BHAGAT APRN - [facility] Facility:B Start: 01-05-2023 End: 01-05-2023 Emergency department patient visit DR PRABHJOT DURAN MD [facility] Start: 11-26-2022 End: 11-26-[address] Alison Reyes Work Phone: [facility] Work Phone: Start: 11-22-2022 End: 11-22-[address] Alison Reyes Work Phone: [facility] Work Phone: Start: 11-22-2022 End: 11-22-[address] Alison Reyes Work Phone: [facility] Start: 05-22-2022 End: 05-22-[address] Alison Reyes Work Phone: [facility] Work Phone: Start: 05-22-2022 End: 05-22-[address] Alison Reyes Work Phone: [facility] Start: 05-02-2022 End: 05-02-[address] Alison Reyes Work Phone: [facility] Start: 04-16-2022 End: 04-16-2022 Emergency department patient visit Dr. Alison Reyes Work Phone: [facility] Start: 02-17-2022 End: 02-17-2022 Emergency department patient visit Dr. Alison Reyes Work Phone: [facility] Start: 01-24-2022 End: 01-24-[address] Alison Reyes Work Phone: [facility] Start: 01-02-2022 End: 01-02-[address] Alison Reyes Work Phone: [facility] Start: 12-14-2021 End: 12-14-[address] Alison Reyes Work Phone: [facility] Work Phone: Start: 12-14-2021 End: 12-14-[address] [facility] Start: 12-14-2021 End: 12-14-[address] Alison Reyes Work Phone: [facility] Start: 10-30-2021 End: 10-30-2021 Patient encounter procedure [facility] Start: 08-02-2021 End: 08-02-2021 Patient encounter procedure [facility] Start: 08-01-2021 End: 08-01-2021 Patient encounter procedure [facility] Start: 06-12-2021 End: 06-12-2021 Emergency department patient visit [facility] Start: 2021 End: 2021 Patient encounter procedure [facility] Start: 04-16-2021 End: 04-16-2021 Emergency department patient visit [facility] Procedures Date Procedure Procedure Detail Performing Clinician Start: 09-04-[address] Alison Reyes MD Work Phone: Start: 09-04-2024 Gram stain microscopy D micaela Reyes MD Work Phone: Start: 09-04-2024 Microbial culture, routine Dr. Alison Reyes MD Work Phone: Start: 09-02-2024 X-ray of knee, four or more views Dr. Alison Reyes MD Work Phone: Start: 06-24-2024 Plain X-ray of shoulder Dr. Alison Reyes MD Work Phone: Start: 05-19-2024 Measurement of renal function Dr. Alison Reyes MD Work Phone: Comment on above: GFR Calc Start: 05-19-2024 Prostate specific an tigen measurement Dr. Alison Reyes MD Work Phone: Comment on above: This test was perfor med using the TPSA assay method for [employer] chemistry system. Values obtained with differentassay methods cannot be used interchangably.When changing PSA assays in the course of monitoring apatient, additional sequential testing should be carriedout to confirm baseline values. Start: 05-15-2024 X-ray of knee, four or more views Dr. Alison Reyes MD Work Phone: Start: 06-13-[address] Alison Reyes Work Phone: Start: 06-13-2023 Investigation of transfusion reaction Dr. Alison Reyes Work Phone: Start: 06-13-2023 Microbial culture, routine Dr. Alison Reyes Work Phone: Start: 04-19-2023 X-ray of lumbosacral spine Dr. Alison Reyes Work Phone: Start: 02-05-2023 SARS-CoV-2 & FLU Ant igen (Rapid) Dr. Alison Reyes Work Phone: Start: 02-05-2023 Plain chest X-ray Dr. Samm Reyes Work Phone: Start: 02-17-2022 CT cervical spine wi thout contrast Dr. Alison Reyes Work Phone: Start: 02-17-[address] Alison rodriguez Work Phone: Start: 02-17-2022 CT of head without contrast Dr. Alisno Reyes Work Phone: Start: 01-24-2022 Radiologic examinati on of knee Dr. Alison Reyes Work Phone: Start: 08-02-2021 Radiologic examinati on of knee Start: 06-12-2021 Plain chest X-ray Anaerobic microbial culture Dr. Alison Reyes Work Phone: Fracture of proximal end of femur (disorder) DR PRABHJOT DURAN MD Investigation of transfusion reaction Dr. Alison Reyes Work Phone: Microbial culture, routine D micaela Reyes Work Phone: Plan of Treatment Date Care Activity Detail Author Start: 09-04-2024 Source specific culture [facility] Start: 09-04-2024 Anaerobic microbial culture Anaerobic Culture [facility] Start: 09-02-2024 Patient referral [facility] Work Phone: Start: 09-02-2024 X-ray of knee, four or more views Knee 4 or More Views [facility] Start: 09-02-2024 XR Knee GE 4 Views [facility] Start: 05-15-2024 [facility] Start: 04-19-2023 Patient referral [facility] Work Phone: Start: 04-17-2023 Patient referral [facility] Work Phone: Start: 02-05-2023 [facility] Patient Education [facility] Work Phone: Patient referral [facility] Work Phone: Immunizations Immunization Date Immunization Notes Care Provider Violet adams 10-25-2015 tetanus toxoid, redu gloria diphtheria toxoid, and acellular pertussis vaccine, adsorbed DR PRABHJOT DURAN MD [facility] Payers Date Payer Category Payer Medicaid [id number] 2023 Self-pay [id number] 2023 Unknown [id number] 2023 Unknown [id number] 2023 Private Health Insurance [id number] 2023 Unknown [id number] 1967 Unknown [id number] 1967 Unknown [id number] 627 1967 Unknown [id number] [id number] 1967 Unknown [id number] 627 1967 Unknown [id number] 7 1967 Unknown [id number] 627 1967 Unknown [id number] 7 1967 Unknown [id number] 627 Medicare [id number] Medicare [id number] Private Health Insurance [id number] Unknown FORMERLY [facility] PLAN [id number] Unknown [id number] 2.16.840.1.172665.3.579.2. 462 Unknown [id number] 2.16.840.1.817524.3.579.2. 462 Unknown [id number] 2.16.840.1.862258.3.579.2. 462 Unknown [id number] 2.16.840.1.908111.3.579.2. 462 Unknown [id number] 2.16.840.1.686524.3.579.2. 462 Unknown [id number] 2.16.840.1.408051.3.579.2. 462 Unknown [id number] 2.16.840.1.802102.3.579.2. 462 Unknown [id number] 2.16.840.1.263282.3.579.2. 462 Unknown [id number] 2.16.840.1.826545.3.579.2. 462 Unknown [id number] 2.16.840.1.622808.3.579.2. 462 Unknown [id number] 2.16.840.1.681089.3.579.2. 462 Unknown [id number] 2.16.840.1.812865.3.579.2. 462 Unknown [id number] 2.16.840.1.390542.3.579.2. 462 Unknown [id number] 2.16.840.1.877604.3.579.2. 462 Unknown [id number] 2.16840.1.893374.3.579.2. 462 Unknown [id number] 2.16.840.1.520545.3.579.2. 462 Unknown [id number] 2.16.840.1.612366.3.579.2. 462 Unknown [id number] 2.16.840.1.764146.3.579.2. 462 Unknown [id number] 2.16.840.1.555230.3.579.2. 462 Unknown [id number] 2.16.840.1.141633.3.579.2. 462 Unknown [id number] 2.16.840.1.998071.3.579.2. 462 Unknown [id number] 2.16.840.1.868707.3.579.2. 462 Unknown [id number] 2.16.840.1.507020.3.579.2. 462 Unknown [id number] 2.16.840.1.305864.3.579.2. 462 Unknown [id number] 2.16.840.1.776632.3.579.2. 462 Unknown [id number] 2.16.840.1.034707.3.579.2. 462 Unknown [id number] 2.16.840.1.215249.3.579.2. 462 Unknown [id number] 2.16.840.1.933647.3.579.2. 462 Unknown [id number] 2.16.840.1.010175.3.579.2. 462 Unknown [id number] 2.16.840.1.236910.3.579.2. 462 Unknown [id number] 2.16.840.1.676439.3.579.2. 462 Social History Date Type Detail Facility Start: 06-12-2021 End: 06-28-2023 Tobacco smoking status NYIS Unknown if ever smoked [facility] Start: 07-25-2020 Occasional [facility] Start: 1965 Sex Assigned At Male [facility] Start: 12-02-2018 End: 08-31-2024 Tobacco smoking status Never smoked tobacco (finding) [facility] Comment on above: No smoke exposure Sexual Orientation Florina H anupama [facility] Start: 10-15-2018 End: 07-07-2024 Sex Male (finding) [facility] Medical Equipment Procedure Code Equipment Code Equipment Origin al Text Equipment Identifier Dates Pen Needle, Diab etic 32 gauge x 5/32 needle Start: 10-07-2024 Pen Needle, Diab etic 32 gauge x 5/32 needle Start: 10-07-2024 Functional Status Date Assessment Result Facility 09-05-2024 Functional Status Activity Jessie cordova [facility] 09-05-2024 Functional Status Standard Safet y ID band on, Allergy Band on, Call device within reach, Bed in low position, Wheels locked, Upper/Half-Length side-rails up, Phone within reach, personal items within reach, Safety level maintained [facility] 06-05-2024 Functional Status Independent [facility] 06-04-2024 Functional Status Awake [facility] 08-04-2023 Functional Status Independent [facility] 08-04-2023 Functional Status Ambulation in De Jesus, Ambulation in Room [facility] 04-29-2023 Functional Status Independent [facility] 04-29-2023 Functional Status ID band on, Allergy Band on, Call device within reach, Bed in low position, Wheels locked, Upper/Half-Length side-rails up, Safety level maintained [facility] 04-22-2023 Functional Status Up ad kwabena [facility] 02-28-2023 Functional Status Standard Safet y ID band on, Call device within reach, Bed in low position, Wheels locked, Upper/Half-Length side-rails up, Phone within reach [facility] 01-05-2023 Functional Status Assistive Device None [facility] 01-05-2023 Functional Status Room check performed [facility] Mental Status Date Assessment Result Facility 09-05-2024 Mental Status Orientation Oriented x 4 [facility] 09-05-2024 Mental Status [facility] 06-05-2024 Mental Status Orientation Oriented x 4 [facility] 06-04-2024 Mental Status [facility] 08-04-2023 Mental Status Orientation Oriented x 4 [facility] 08-04-2023 Mental Status [facility] 05-30-2023 Mental Status Oriented x 4 [facility] 04-29-2023 Mental Status Orientation Oriented x 4 [facility] 04-29-2023 Mental Status [facility] 04-22-2023 Mental Status Oriented x 4 [facility] 01-05-2023 Mental Status Orientation Oriented x 4 [facility] Clinical Notes 01-05-2023 to 09-06-2024 Note Date & Type Note Facility 09-06-2024 Hospital Discharg e instructions Patient Education 09/05/2024 22:45:41 Cellulitis Skin Infection Cellulitis Cellulitis is an infection of the deep layers of skin. A break in the skin, such as a cut or scratch, can let bacteria under the skin. If the bacteria get to deep layers of the skin, it can be serious. If not treated, cellulitis can get into the bloodstream and lymph nodes. The infection can then spread throughout the body. This causes serious illness. Cellulitis causes the affected skin to become red, swollen, warm, and sore. The reddened areas have a visible border. An open sore may leak fluid (pus). You may have a fever, chills, and pain. Cellulitis is treated with antibiotics taken for 7 to 10 days. An open sore may be cleaned and covered with cool wet gauze. Symptoms should get better 1 to 2 days after treatment is started. Make sure to take all the antibiotics for the full number of days until they are gone. Keep taking the medicine even if your symptoms go away. Home care Follow these tips: Limit the use of the part of your body with cellulitis. If the infection is on your leg, keep your leg raised while sitting. This will help to reduce swelling. Take all of the antibiotic medicine exactly as directed until it is gone. Do not miss any doses, especially during the first 7 days. Don t stop taking the medicine when your symptoms get better. Keep the affected area clean and dry. Wash your hands with soap and warm water before and after touching your skin. Anyone else who touches your skin should also wash his or her hands. Don't share towels. Follow-up care Follow up with your healthcare provider, or as advised. If your infection does not go away on the first antibiotic, your healthcare provider will prescribe a different one. When to seek medical advice Call your healthcare provider right away if any of these occur: Red areas that spread Swelling or pain that gets worse Fluid leaking from the skin (pus) Fever higher of 100.4 F (38.0 C) or higher after 2 days on antibiotics [id number] [employer] [place] [address], [place] [id number]. All rights reserved. This information is not intended as a substitute for professional medical care. Always follow your healthcare professional's instructions. Follow Up Care 09/05/2024 21:02:36 With:Go to emergency room if symptoms worsen Address:Unknown When:2-4 days With:ALISON REYES MD Address: [address] [phone] [phone] When:2-4 days [facility] 09-05-2024 Note Discharge Instructions Thank you for allowing [facility] to assist you with your healthcare needs. The following is important discharge information regarding your hospital visit. Diagnosis from Today's Visit Cellulitis What to Do Next Instructions from Your Care Team You are prescribed cephalexin in addition to the doxycycline that you are previously prescribed for cellulitis in your groin area. Please monitor the area closely. If you notice any acute worsening redness warmth swelling or develop any pain in the area please return to the emergency department for more emergent evaluation. Follow-up with your provider within the next week for recheck of the area. No qualifying data available. Post Acute Orders No qualifying data available. You Need to Schedule the Following Appointments Follow Up with Go to emergency room if symptoms worsen When:Within 2-4 days Follow Up with ALISON REYES MD When:Within 2-4 days Where:[address] [place] [address] [phone] Allergies Lexapro Medications Please ask your primary doctor or pharmacist before taking any other medication not listed, including over the counter drugs, herbal medications, vitamins and or supplements as they may interact with your home medications. What How Much When Why Instructions Last Dose New cephalexin (cephalexin 500 mg oral capsule) 1 cap by mouth Four (4) times a day Duration: 10 Days Printed Prescription Please take this list to your next doctor s visit. Bring all medications you take, including over the counter medications, herbals and other supplements with you to your doctor s visit. Patients and families are reminded to discard old lists and to update any records with all medication providers or retail pharmacies. Education Materials Cellulitis Cellulitis is an infection of the deep layers of skin. A break in the skin, such as a cut or scratch, can let bacteria under the skin. If the bacteria get to deep layers of the skin, it can be serious. If not treated, cellulitis can get into the bloodstream and lymph nodes. The infection can then spread throughout the body. This causes serious illness. Cellulitis causes the affected skin to become red, swollen, warm, and sore. The reddened areas have a visible border. An open sore may leak fluid (pus). You may have a fever, chills, and pain. Cellulitis is treated with antibiotics taken for 7 to 10 days. An open sore may be cleaned and covered with cool wet gauze. Symptoms should get better 1 to 2 days after treatment is started. Make sure to take all the antibiotics for the full number of days until they are gone. Keep taking the medicine even if your symptoms go away. Home care Follow these tips: Limit the use of the part of your body with cellulitis. If the infection is on your leg, keep your leg raised while sitting. This will help to reduce swelling. Take all of the antibiotic medicine exactly as directed until it is gone. Do not miss any doses, especially during the first 7 days. Don t stop taking the medicine when your symptoms get better. Keep the affected area clean and dry. Wash your hands with soap and warm water before and after touching your skin. Anyone else who touches your skin should also wash his or her hands. Don't share towels. Follow-up care Follow up with your healthcare provider, or as advised. If your infection does not go away on the first antibiotic, your healthcare provider will prescribe a different one. When to seek medical advice Call your healthcare provider right away if any of these occur: Red areas that spread Swelling or pain that gets worse Fluid leaking from the skin (pus) Fever higher of 100.4 F (38.0 C) or higher after 2 days on antibiotics [phone] [employer]. [address] [place] [address] [place] [address]. All rights reserved. This information is not intended as a substitute for professional medical care. Always follow your healthcare professional's instructions. Additional Information VACCINATE! IT SAVES LIVES! Members of the community who have not yet received the COVID-19 vaccine and would like to receive it can visit one of [facility] vaccine clinics. There are many vaccine clinic locations within the [facility]. For locations and available times, please visit [email or web address].[place]. [email or web address] It is important to note that some COVID mobile vaccine clinics are held outdoors and may be canceled in rainy or stormy conditions. To learn more about pediatric vaccinations (ages 5-11), we invite you to visit the [facility] webpage. https://www.[employer].org/p ages/6053-Wioxo-Lvrixfvdrfd-Freq oydrlp-Cdyrs-Fyoccunip.html To learn more about the COVID-19 vaccine, we invite you to visit the CDC website for a list of frequently asked questions. https://www.cdc.gov/coronavirus/ 2019-ncov/vaccines/faq.html [facility] Patient Portal Access Instructions: Stay connected with your healthcare team and access your personal medical information anytime with the [facility] [employer] Patient Portal. If you would like a full copy of your medical records please contact the [facility] Medical Records Department Saturday through Saturday between 8a.m. and 4:30p.m. Please follow the directions below to access the portal: 1.Access the email account you provided upon registration to the [facility].2.Look for an invitation email from [facility].3.Open the email and access the invitation link: Accept Invitation to [facility]4.Fill in the required lockwood to create your account. Sign into www.[employer] with your username and password that you created in the above steps to stay up to date. You can then view a summary of results, a summary of your visits, and the ability to download your summaries to your computer or send the information securely to a physician. Remember that your healthcare information is confidential, so carefully consider who you will allow to register on the [facility] Patient Portal for access to your information. You can also access the [employer] Patient Portal on the [employer]inab. Simply click on Health Records under Health Data and then click on the [employer] logo. HOW TO SAFELY DISPOSE OF PRESCRIPTION MEDICATIONS Please use one of the following methods to safely dispose of your unused medications. 1.Use a drug disposal kit: the drug disposal pouch allows you to safely discard your old and unused drugs. Ask your nurse to give you one when you are discharged.2.Visit a local take-back location: Many local pharmacies and police departments have programs that collect old and unwanted prescription drugs. Call your local pharmacy or go to http://Profitably.SPIRIT Navigation/3J9Zp3r to find one close to you.3.Make use of household items: Use cat litter or old coffee grounds to dispose medications if other options are not available. Mix your drugs with these household products, seal them in an airtight container and throw it into the garbage. Call [facility]: [phone] to be sure your drugs can be disposed of in this way. Some medicines may require a different approach.4.Never flush your medications down the toilet. IF YOU HAVE BEEN PRESCRIBED AN OPIOIDS FOR PAIN If you have been prescribed an opioid (such as hydrocodone, oxycodone or morphine), it is critical to understand the possible side effects and risks of opioid pain medications. Even when taken as directed, opioids can have several side effects including: Tolerance, meaning you might need to take more of a medication for the same pain relief. Nausea, vomiting and/or constipation. Sleepiness, dizziness, dry mouth, confusion, depression or itching. Physical dependence, meaning you have withdrawal symptoms when a medication is stopped ? this can develop within a few days. KNOW YOUR RESPONSIBILITIES It is important to know exactly how much and how often to take the opioid pain medications you are prescribed. Never take opioids in higher amounts or more often than prescribed. Do not combine opioids with alcohol or other drugs that cause drowsiness, such as benzodiazepines, also known as benzos, including diazepam and alprazolam, muscle relaxants or sleep aids. Never sell or share prescription opioids. This is illegal. Store opioids in a secure place and out of reach of others (including children, family, friends and visitors). The last page(s) of this document has been signed and retained as a CHART COPY Signatures Patient Education Materials Cellulitis Skin Infection Medication Leaflets My discharge plan and instructions have been reviewed and explained to me and I,OK GOMEZ understand my current condition and have read and understand these discharge instructions. I have received a written copy of the plan/instructions. If I have questions, I am aware that I should contact my doctor. Patient/Production Support Developer Signature: Date/Time: Relationship to Patient: Witness Name/Signature: Date/Time: [facility] 09-05-2024 Note Exam Date Time Procedure Performing Provider Status 09/05/24 10:[address] Abd/Pelvis w/ IV Contrast Only ALEXEI ALDANA MD; Auth (Verified) [id number] ORIGINAL EXAMINATION: CT OF THE ABDOMEN AND PELVIS WITH CONTRAST 09/05/2024 10:17 pm TECHNIQUE: CT of the abdomen and pelvis was performed with the administration of intravenous contrast. Multiplanar reformatted images are provided for review. Automated exposure control, iterative reconstruction, and/or weight based adjustment of the mA/kV was utilized to reduce the radiation dose to as low as reasonably achievable. COMPARISON: CT abdomen pelvis January 05, 2023 HISTORY: ORDERING SYSTEM PROVIDED HISTORY: Reason for Exam: redness and swelling left groin area. not painful left inguinal swelling FINDINGS: Suboptimal exam due to patient body habitus. Lower Chest: No focal consolidation. Coronary artery calcifications. Organs: Grossly unremarkable. GI/Bowel: Grossly unremarkable. Pelvis: Grossly unremarkable. Peritoneum/Retroperitoneum: Nonaneurysmal abdominal aorta with atherosclerotic plaque. A few mildly prominent left inguinal lymph nodes and left iliac chain lymph nodes. Bones/Soft Tissues: Right femur fixation hardware partially imaged. Multilevel degenerative change of the spine. IMPRESSION: A few mildly prominent left iliac chain and inguinal lymph nodes, presumably related to reported history of left groin redness and swelling. Interpreted by: Alexei Aldana Preliminary Report By: Alexei Aldana Electronically signed By Alexei Aldana Dictated Date: 09/05/2024 10:20:06 PM Prelim Date: 09/05/2024 10:24:56 PM Sign Date: 09/05/2024 10:24:56 PM Ordering Provider: MELO [place] [facility] [id number] Evaluation note* Diagnosis Onset Date Resolution Status Admit Date Abscess of left thigh acute Jul 12:43pm Bilateral primary osteoarthr itis of knee acute September 02, 2024 7 :45am Gait difficulty acute September 02, 2024 7:45am Localized osteoarthritis of knee acu te September 02, 2024 7:45am Osteoarthritis of right knee acute September 02, 2024 7:45am Abscess of left thigh acute September 03, 2024 1:40pm Abscess of left thigh acute September 10, 2024 7:51am Abscess of left thigh acute Sep 8:28am Bilateral primary osteoarthr itis of knee acute October 08, 2024 1:52pm [facility] Work Phone: 1(954) 911-133204-08-2025 Evaluation note* Diagnosis Onset Date Resolution Status Admit Date Abscess of left thigh acute Jul 12:43pm Bilateral primary osteoarthr itis of knee acute September 02, 2024 7 :45am Gait difficulty acute September 02, 2024 7:45am Localized osteoarthritis of knee acu te September 02, 2024 7:45am Osteoarthritis of right knee acute September 02, 2024 7:45am Abscess of left thigh acute September 03, 2024 1:40pm Abscess of left thigh acute September 10, 2024 7:51am Abscess of left thigh acute Sep 8:28am Bilateral primary osteoarthr itis of knee acute October 08, 2024 1:52pm Gait difficulty acute September 1:52pm [facility] Work Phone: 1(191) 475-493303-05-2025 Radiology Diagnostic study note [facility] Imaging Services [address] [place] [address] Shoulder min 2 Views MR#: [id number] Acct: [id number] Name: OK GOMEZ Rep #: [id number] : 1965 M 59 From: Micheal Mcnair MD PCP: Dr. Alison Reyes MD Status: RE G CLI Study:Shoulder min 2 Views Date of Exam: 06/24/24 Exam# [id number] Ordering Dr: Alison Reyes MD PROCEDURE: SHOULDER MIN 2 VIEWS REASON FOR EXAM: Pain. TECHNIQUE: Five view right shoulder series COMPARISON: None. RAD/Shoulder min 2 Views IMPRESSION: Mild degenerative changes are seen of the right acromioclavicular joint. The right glenohumeral joint demonstrates minimal degenerative changes, without apparent joint narrowing. Satisfactory alignment is seen. No fracture or other significant abnormality is identified Reading Location: [id number] CC: Dr. Alison Reyes MD ~ Dish Technician: Signed [facility]02-14-2025 Hospital Discharge instructions Patient Education 06/05/2024 01:30:55 Knee Sprain Knee Sprain A sprain is an injury to the ligaments or capsule that holds a joint together. There are no broken bones. Most sprains take 3 to 6 weeks to heal. If it a severe sprain where the ligament is completely torn, it can take months to recover. Most knee sprains are treated with a splint, knee immobilizer brace, or elastic wrap for support. Severe sprains may rarely require surgery. Home care Stay off the injured leg as much as possible until you can walk on it without pain. If you have a lot of pain with walking, crutches or a walker may be prescribed. (These can be rented or purchased at many pharmacies and surgical or orthopedic supply stores). Follow your healthcare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 should not be given to a child younger than 2 months old. Tell your doctor if you have ever had: kidney or liver disease; a folate (folic acid) deficiency; asthma or severe allergies; HIV or AIDS; a thyroid disorder; malnourishment; alcoholism; an electrolyte imbalance (such as low blood sodium or high potassium); porphyria, or xvarech-2-hscdpnygh dehydrogenase (G6PD) deficiency; or if you use a blood thinner (such as warfarin) and you have routine 'INR' or prothrombin time tests. How should I use sulfamethoxazole and trimethoprim? Follow all directions on your prescription label and read all medication guides or instruction sheets. Use the medicine exactly as directed. Sulfamethoxazole and trimethoprim oral is taken by mouth. Shake the oral suspension (liquid). Measure a dose with the supplied measuring device (not a kitchen spoon). Sulfamethoxazole and trimethoprim injection is given in a vein. Be sure you understand how to properly mix this medicine with a liquid (diluent) and how to store the mixture. Ask your doctor or pharmacist if you don't understand how to use an injection. Prepare an injection only when you are ready to give it. Call your pharmacist if the medicine lookscloudy, has changed colors, or has particles in it. Mixed medicine must be used within 2 to 6 hours depending on the amount of diluent in the mixture. Follow your doctor's instructions. Do not refrigerate mixed medicine. Do not reuse a needle or syringe. Place them in a puncture-proof 'sharps' container and dispose of it following state or local laws. Keep out of the reach of children and pets. Drink plenty of fluids to prevent kidney stones. Antibiotic medicines can cause diarrhea. Tell your doctor if you have diarrhea that is watery or bloody. Keep using this medicine even if your symptoms quickly improve. Skipping doses could make your infection resistant to medication. Sulfamethoxazole and trimethoprim will not treat a viral infection (flu or a common cold). You may need blood and urine tests, and this medicine may be stopped based on the results. Store at room temperature away from moisture, heat, and light. Do not refrigerate. What happens if I miss a dose? Use the medicine as soon as you can, but skip the missed dose if it is almost time for your next dose. Do not use two doses at one time. What happens if I overdose? Seek emergency medical attention or call the Poison Help line at . Overdose symptoms may include loss of appetite, vomiting, fever, blood in your urine, yellowing of your skin or eyes, confusion, or loss of consciousness. What should I avoid while using sulfamethoxazole and trimethoprim? If you use the injection form of this medicine, do not eat or drink anything that contains propylene glycol (an ingredient in many processed foods, soft drinks, and medicines). Dangerous effects could occur. Sulfamethoxazole and trimethoprim could make you sunburn more easily. Avoid sunlight or tanning beds. Wear protective clothing and use sunscreen (SPF 30 or higher) when you are outdoors. What are the possible side effects of sulfamethoxazole and trimethoprim? Get emergency medical help if you have signs of an allergic reaction (hives, cough, chest pain, shortness of breath, swelling in your face or throat) or a severe skin reaction (fever, sore throat, burning eyes, skin pain, red or purple skin rash with blistering and peeling). Seek medical treatment if you have a serious drug reaction that can affect many parts of your body.Symptoms may include: skin rash, fever, swollen glands, joint pain, muscle aches, severe weakness, pale skin, unusual bruising, or yellowing of your skin or eyes. Call your doctor at once if you have: severe stomach pain, diarrhea that is watery or bloody (even if it occurs months after your last dose); any skin rash, no matter how mild; yellowing of your skin or eyes; a seizure; new or unusual joint pain; increased or decreased urination; swelling, bruising, or irritation around the IV needle; increased thirst, dry mouth, fruity breath odor; new or worsening cough, fever, trouble breathing; high blood potassium--nausea, weakness, tingly feeling, chest pain, irregular heartbeats, loss of movement; low blood sodium--headache, confusion, problems with thinking or memory, weakness, feeling unsteady; or low blood cell counts--fever, chills, mouth sores, skin sores, easy bruising, unusual bleeding, pale skin, cold hands and feet, feeling light-headed or short of breath. Common side effects may include: nausea, vomiting, loss of appetite; or skin rash. This is not a complete list of side effects and others may occur. Call your doctor for medical advice about side effects. You may report side effects to FDA at 0-972-ZZY-6022. What other drugs will affect sulfamethoxazole and trimethoprim? You may need more frequent check-ups or medical tests if you also use medicine to treat depression,diabetes, seizures, or HIV. Tell your doctor about all your current medicines. Many drugs can affect sulfamethoxazole and trimethoprim, especially: amantadine, digoxin, cyclosporine, indomethacin, leucovorin, methotrexate, procainamide, pyrimethamine; an 'MICHELE inhibitor' heart or blood presure medication (benazepril, enalapril, lisinopril, quinapril,ramipril, and others); or a diuretic or 'water pill'. This list is not complete and many other drugs may affect sulfamethoxazole and trimethoprim. This includes prescription and hich-bjf-zthahqj medicines, vitamins, and herbal products. Not all possibledrug interactions are listed here. Where can I get more information? Your pharmacist can provide more information about sulfamethoxazole and trimethoprim. Remember, keep this and all other medicines out of the reach of children, never share your medicines with others, and use this medication only for the indication prescribed. Every effort has been made to ensure that the information provided by [employer]. [employer]') is accurate, up-to-date, and complete, but no guarantee is made to that effect. Drug information contained herein may be time sensitive. [employer] information has been compiled for use by healthcare practitioners and consumers in the [place] and therefore [employer] does not warrant that uses outside of the [place] are appropriate, unless specifically indicated otherwise. [employer] drug information does not endorse drugs, diagnose patients or recommend therapy. [employer] drug information isan informational resource designed to assist licensed healthcare practitioners in caring for their p atients and/or to serve consumers viewing this service as a supplement to, and not a substitute for, the expertise, skill, knowledge and judgment of healthcare practitioners. The absence of a warningfor a given drug or drug combination in no way should be construed to indicate that the drug or drug combination is safe, effective or appropriate for any given patient. [employer] does not assume any responsibility for any aspect of healthcare administered with the aid of information [employer] provides. The information contained herein is not intended to cover all possible uses, directions, precautions, warnings, drug interactions, allergic reactions, or adverse effects. If you have questions about the drugs you are taking, check with your doctor, nurse or pharmacist. Copyright 8887-4990 [employer]. Version: 13.. Revision Date: 11/22/2022. cephalexin (sef a LING in) What is the most important information I should know about cephalexin? You should not use this medicine if you are allergic to cephalexin or to similar antibiotics, such as Ceftin, Cefzil, Omnicef, and others. Tell your doctor if you are allergic to any drugs, especially penicillins or other antibiotics. What is cephalexin? Cephalexin is a cephalosporin (SEF a low spor in) antibiotic that is used to treat bacterial infections of the lungs, ear, skin, bones, bladder, and kidneys. Cephalexin is used to treat infections in adults and children who are at least 1 year old. Cephalexin may also be used for purposes not listed in this medication guide. What should I discuss with my healthcare provider before taking cephalexin? You should not use this medicine if you are allergic to cephalexin or any other cephalosporin antibiotic (cefdinir, cefadroxil, cefoxitin, cefprozil, ceftriaxone, cefuroxime, Omnicef, and others). Tell your doctor if you have ever had: an allergy to any drug (especially penicillin); liver or kidney disease; or intestinal problems, such as colitis. The liquid form of cephalexin may contain sugar. This may affect you if you have diabetes. Tell your doctor if you are or breast-feeding. How should I take cephalexin? Follow all directions on your prescription label and read all medication guides or instruction sheets. Use the medicine exactly as directed. Do not use cephalexin to treat any condition that has not been checked by your doctor. Measure liquid medicine carefully. Use the dosing syringe provided, or use a medicine dose-measuring device (not a kitchen spoon). Use this medicine for the full prescribed length of time, even if your symptoms quickly improve. Skipping doses can increase your risk of infection that is resistant to medication. Cephalexin will not treat a viral infection such as the flu or a common cold. Do not share cephalexin with another person, even if they have the same symptoms you have. This medicine can affect the results of certain medical tests. Tell any doctor who treats you that you are using cephalexin. Store the tablets and capsules at room temperature away from moisture, heat, and light. Store the liquid medicine in the refrigerator. Throw away any unused liquid after 14 days. What happens if I miss a dose? Take the medicine as soon as you can, but skip the missed dose if it is almost time for your next dose. Do not take two doses at one time. What happens if I overdose? Seek emergency medical attention or call the Poison Help line at . Overdose symptoms may include nausea, vomiting, stomach pain, diarrhea, and blood in your urine. What should I avoid while taking cephalexin? Antibiotic medicines can cause diarrhea, which may be a sign of a new infection. If you have diarrhea that is watery or bloody, call your doctor before using anti-diarrhea medicine. What are the possible side effects of cephalexin? Get emergency medical help if you have signs of an allergic reaction (hives, difficult breathing, swelling in your face or throat) or a severe skin reaction (fever, sore throat, burning eyes, skin pain, red or purple skin rash with blistering and peeling). Call your doctor at once if you have: severe stomach pain, diarrhea that is watery or bloody (even if it occurs months after your last dose); unusual tiredness, feeling light-headed or short of breath; easy bruising, unusual bleeding, purple or red spots under your skin; a seizure; pale skin, cold hands and feet; yellowed skin, dark colored urine; fever, weakness; or pain in your side or lower back, painful urination. Common side effects may include: diarrhea; nausea, vomiting; indigestion, stomach pain; or vaginal itching or discharge. This is not a complete list of side effects and others may occur. Call your doctor for medical advice about side effects. You may report side effects to FDA at 5-541-CIK-8735. What other drugs will affect cephalexin? Tell your doctor about all your other medicines, especially: metformin; or probenecid. This list is not complete. Other drugs may affect cephalexin, including prescription and slyg-rsi-ihqjtlc medicines, vitamins, and herbal products. Not all possible drug interactions are listed here. Where can I get more information? Your pharmacist can provide more information about cephalexin. Remember, keep this and all other medicines out of the reach of children, never share your medicines with others, and use this medication only for the indication prescribed. Every effort has been made to ensure that the information provided by [employer]') is accurate, up-to-date, and complete, but no guarantee is made to that effect. Drug information contained herein may be time sensitive. [employer] information has been compiled for use by healthcare practitioners and consumers in the [place] and therefore [employer] does not warrant that uses outside of the [place] are appropriate, unless specifically indicated otherwise. [employer] drug information does not endorse drugs, diagnose patients or recommend therapy. [employer] drug information isan informational resource designed to assist licensed healthcare practitioners in caring for their p atients and/or to serve consumers viewing this service as a supplement to, and not a substitute for, the expertise, skill, knowledge and judgment of healthcare practitioners. The absence of a warningfor a given drug or drug combination in no way should be construed to indicate that the drug or drug combination is safe, effective or appropriate for any given patient. [employer] does not assume any responsibility for any aspect of healthcare administered with the aid of information [employer] provides. The information contained herein is not intended to cover all possible uses, directions, precautions, warnings, drug interactions, allergic reactions, or adverse effects. If you have questions about the drugs you are taking, check with your doctor, nurse or pharmacist. Copyright 0692-1046 [employer]. Version: 03.22. Revision Date: 11/21/2022. Education Materials Abscess (Antibiotic Treatment Only) An abscess (sometimes called a boil ) happens when bacteria get trapped under the skin and start togrow. Pus forms inside the abscess as the body responds to the bacteria. An abscess can happen withan insect bite, ingrown hair, blocked oil gland, pimple, cyst, or puncture wound. In the early stages, your wound may be red and tender. For this stage, you may get antibiotics. If the abscess does not get better with antibiotics, it will need to be drained with a small cut. Home care These tips will help you care for your abscess at home: Soak the wound in hot water or apply hot packs (small towel soaked in hot water) to the area for 20minutes at a time. Do this 3 to 4 times a day. Do not cut, squeeze, or pop the boil yourself. Apply antibiotic cream or ointment to the skin 3 to 4 times a day, unless something else was prescribed. Some ointments include an antibiotic plus a pain reliever. If your doctor prescribed antibiotics, do not stop taking them until you have finished the medicineor the doctor tells you to stop. You may use an rjrx-kud-wpguftp pain medicine to control pain, unless another pain medicine was prescribed. If you have chronic liver or kidney disease or ever had a stomach ulcer or gastrointestinalbleeding, talk with your doctor before using these any of these. Follow-up care Follow up with your healthcare provider, or as advised. Check your wound each day for the signs of worsening infection listed below. When to seek medical advice Get prompt medical attention if any of these occur: An increase in redness or swelling Red streaks in the skin leading away from the abscess An increase in local pain or swelling Fever of 100.4 F (38 C) or higher, or as directed by your healthcare provider Pus or fluid coming from the abscess Boil returns after getting better [id number] [employer]. [address] [place] [address], [place] [address]. All rights reserved. This information is not intended as a substitute for professional medical care. Always follow yourhealthcare professional's instructions. Viral Upper Respiratory Illness (Adult) You have a viral upper respiratory illness (URI), which is another term for the common cold. This illness is contagious during the first few days. It is spread through the air by coughing and sneezing. It may also be spread by direct contact (touching the sick person and then touching your own eyes, nose, or mouth). Frequent handwashing will decrease risk of spread. Most viral illnesses go away within 7 to 10 days with rest and simple home remedies. Sometimes the illness may last for several weeks. Antibiotics will not kill a virus, and they are generally not prescribed for this condition. Home care If symptoms are severe, rest at home for the first 2 to 3 days. When you resume activity, don't letyourself get too tired. Don't smoke. If you need help stopping, talk with your healthcare provider. Avoid being exposed to cigarette smoke (yours or others ). You may use acetaminophen or ibuprofen to control pain and fever, unless another medicine was prescribed. If you have chronic liver or kidney disease, have ever had a stomach ulcer or gastrointestinal bleeding, or are taking blood-thinning medicines, talk with your healthcare provider before using these medicines. Aspirin should never be given to anyone under 18 years of age who is ill with a viral infection or fever. It may cause severe liver or brain damage. Your appetite may be poor, so a light diet is fine. Stay well hydrated by drinking 6 to 8 glasses of fluids per day (water, soft drinks, juices, tea, or soup). Extra fluids will help loosen secretions in the nose and lungs. Uabi-iai-rtqycjo cold medicines will not shorten the length of time you re sick, but they may be helpful for the following symptoms: cough, sore throat, and nasal and sinus congestion. If you take prescription medicines, ask your healthcare provider or pharmacist which xulr-two-vprgytl medicines are safe to use. (Note: Don't use decongestants if you have high blood pressure.) Follow-up care Follow up with your healthcare provider, or as advised. When to seek medical advice Call your healthcare provider right away if any of these occur: Cough with lots of colored sputum (mucus) Severe headache; face, neck, or ear pain Difficulty swallowing due to throat pain Fever of 100.4 F (38 C) or higher, or as directed by your healthcare provider Call 911 Call 911 if any of these occur: Chest pain, shortness of breath, wheezing, or difficulty breathing Coughing up blood Very severe pain with swallowing, especially if it goes along with a muffled voice [phone] [employer]. [address] [place] [address], [place] [address]. All rights reserved. This information is not intended as a substitute for professional medical care. Always follow yourhealthcare professional's instructions. Additional Information VACCINATE! IT SAVES LIVES! Members of the community who have not yet received the COVID-19 vaccine and would like to receive it can visit one of [facility] vaccine clinics. There are many vaccine clinic locations within the [facility]. For locations and available times, please visit www.[email or web address].[email or web address]/. It is important to note that some COVID mobile vaccine clinics are held outdoors and may be canceled in rainy or stormy conditions. To learn more about pediatric vaccinations (ages 5-11), we invite you to visit the [facility] webpage. [email or web address] learn more about the COVID-19 vaccine, we invite you to visit the CDC website for a list of frequently asked questions. https://www.cdc.gov/coronavirus/2019-ncov/vaccines/faq.html [facility] Patient Portal Access Instructions: Stay connected with your healthcare team and access your personal medical information anytime with the [facility] Patient Portal. If you would like a full copy of your medical records please contact the [facility] Medical Records Department Saturday through Saturday between 8a.m. and 4:30p.m. Please follow the directions below to access the portal: 1.Access the email account you provided upon registration to the [facility].2.Look for an invitation email from [facility].3.Open the email and access the invitation link: Accept Invitation to [facility]4.Fill in the required lockwood to create your account. Sign into www.[employer] with your username and password that you created in the above steps to stay up to date. You can then view a summary of results, a summary of your visits, and the ability to download your summaries to your computer or send the information securely to a physician. Remember that your healthcare information is confidential, so carefully consider who you will allow to register on the [employer] Patient Portal for access to your information. You can also access the [employer] Patient Portal on the [employer]ab. Simply click on Health Records under [employer] and then click on the [employer] logo. HOW TO SAFELY DISPOSE OF PRESCRIPTION MEDICATIONS Please use one of the following methods to safely dispose of your unused medications. 1.Use a drug disposal kit: the drug disposal pouch allows you to safely discard your old and unuseddrugs. Ask your nurse to give you one when you are discharged.2.Visit a local take-back location: Many local pharmacies and police departments have programs that collect old and unwanted prescriptiondrugs. Call your local pharmacy or go to http://[employer].SPIRIT Navigation/9G1Ih9i to find one close to you.3.Make use of household items: Use cat litter or old coffee grounds to dispose medications if other options arenot available. Mix your drugs with these household products, seal them in an airtight container andthrow it into the garbage. Call [facility]: [phone] to be sure your drugs can be disposed of in this way. Some medicines may require a different approach.4.Never flush your medications down the toilet. IF YOU HAVE BEEN PRESCRIBED AN OPIOIDS FOR PAIN If you have been prescribed an opioid (such as hydrocodone, oxycodone or morphine), it is critical to understand the possible side effects and risks of opioid pain medications. Even when taken as directed, opioids can have several side effects including: Tolerance, meaning you might need to take more of a medication for the same pain relief. Nausea, vomiting and/or constipation. Sleepiness, dizziness, dry mouth, confusion, depression or itching. Physical dependence, meaning you have withdrawal symptoms when a medication is stopped ? this can develop within a few days. KNOW YOUR RESPONSIBILITIES It is important to know exactly how much and how often to take the opioid pain medications you are prescribed. Never take opioids in higher amounts or more often than prescribed. Do not combine opioids with alcohol or other drugs that cause drowsiness, such as benzodiazepines, also known as benzos,including diazepam and alprazolam, muscle relaxants or sleep aids. Never sell or share prescriptionopioids. This is illegal. Store opioids in a secure place and out of reach of others (including children, family, friends and visitors). The last page(s) of this document has been signed and retained as a CHART COPY Signatures Patient Education Materials Abscess, Antibiotic Treatment Only URI, Viral, No Abx (Adult) Medication Leaflets Bactrim 400 mg-80 mg oral tablet, Keflex My discharge plan and instructions have been reviewed and explained to me and IPATRICIA HAROLD A understand my current condition and have read and understand these discharge instructions. I have received a written copy of the plan/instructions. If I have questions, I am aware that I should contact my doctor. Patient/Production Support Developer Signature: Date/Time: Relationship to Patient: Witness Name/Signature: Date/Time: [facility]01-08-2024 Hospital Discharge instructions Patient Education 04/29/2023 08:29:11 Abscess, Incision And Drainage Abscess (Incision & Drainage) An abscess is sometimes called a boil. It happens when bacteria get trapped under the skin and start to grow. Pus forms inside the abscess as the body responds to the bacteria. An abscess can happen with an insect bite, ingrown hair, blocked oil gland, pimple, cyst, or puncture wound. Your healthcare provider has drained the pus from your abscess. If the abscess pocket was large, your healthcare provider may have put in gauze packing. Your provider will need to remove it on your next visit. He or she may also replace it at that time. You may not need antibiotics to treat a simple abscess, unless the infection is spreading into the skin around the wound (cellulitis). The wound will take about 1 to 2 weeks to heal, depending on the size of the abscess. Healthy tissue will grow from the bottom and sides of the opening until it seals over. Home care These tips can help your wound heal: The wound may drain for the first 2 days. Cover the wound with a clean dry dressing. Change the dressing if it becomes soaked with blood or pus. If a gauze packing was placed inside the abscess pocket, you may be told to remove it yourself. Youmay do this in the shower. Once the packing is removed, you should wash the area in the shower, or clean the area as directed by your provider. Continue to do this until the skin opening has closed. Make sure you wash your hands after changing the packing or cleaning the wound. If you were prescribed antibiotics, take them as directed until they are all gone. You may use acetaminophen or ibuprofen to control pain, unless another pain medicine was prescribed. If you have liver disease or ever had a stomach ulcer, talk with your doctor before using these medicines. Follow-up care Follow up with your healthcare provider, or as advised. If a gauze packing was put in your wound, it should be removed in 1 to 2 days. Check your wound every day for any signs that the infection is getting worse. The signs are listed below. When to seek medical advice Call your healthcare provider right away if any of these occur: Increasing redness or swelling Red streaks in the skin leading away from the wound Increasing local pain or swelling Continued pus draining from the wound 2 days after treatment Fever of 100.4 F (38 C) or higher, or as directed by your healthcare provider Boil returns when you are at home [phone] [employer] [place] [address]. All rights reserved. This information is not intended as a substitute for professional medical care. Always follow yourhealthcare professional's instructions. Follow Up Care 04/29/2023 07:45:59 With:Follow up with primary care provider Address:Unknown When:2-4 days [facility] 01-08-2024 Note Discharge Instructions Thank you for allowing [facility] to assist you with your healthcare needs. The following is importantdischarge information regarding your hospital visit. Diagnosis from Today's Visit Abscess - simple Abscess of scalp What to Do Next Instructions from Your Care Team No qualifying data available. Post Acute Orders No qualifying data available. You Need to Schedule the Following Appointments Follow Up with Follow up with primary care provider When Within 2-4 days Allergies Lexapro Medications Please ask your primary doctor or pharmacist before taking any other medication not listed, including over the counter drugs, herbal medications, vitamins and or supplements as they may interact withyour home medications. What How Much When Why Instructions Last Dose New sulfamethoxazole-trimethoprim (Bactrim DS 800 mg-160 mg oral tablet) 1 tab(s) by mouth Two (2) times a day Duration: 7 Days Pickup at [facility][id number] Unchanged albuterol (ProAir HFA MDI (90 mcg/ inh) inhalation aerosol) 1 puff(s) by inhalation Every 4 hours Bronchitis, acute Duration: 30 Days Unchanged aspirin 81 Milligram by mouth Every day Unchanged atorvastatin (atorvastatin 40 mg oral tablet) 1 tab(s) by mouth Once a day Unchanged busPIRone (busPIRone 10 mg oral tablet) 1 tab(s) by mouth Two (2) times a day As needed Unchanged DME (Pen needles 4 mm) See instructions DM type 2, goal HbA1c < 7.5% Si pen needle daily Dispense: 1 box monthly RF: 12 Unchanged glimepiride (glimepiride 1 mg oral tablet) 1 tab(s) by mouth Once a day DM type 2, goal HbA1c < 7.5% Unchanged insulin detemir (Levemir) (Levemir FlexTouch 100 units/ mL 3 mL Pen) 30 unit(s) Subcutaneous Daily at bedtime DM type 2, goal HbA1c < 7.5% Duration: 30 Days rotate injection sites Unchanged levothyroxine (levothyroxine 300 mcg (0.3 mg) oral tablet) 1 tab(s) by mouth Once a day Unchanged metFORMIN (metFORMIN 500 mg oral tablet, extended release) 2 tab(s) by mouth Two (2) times a day Unchanged metoprolol (Metoprolol Succinate ER 100 mg oral tablet, extended release) 1 tab(s) by mouth Once a day Unchanged PARoxetine (PARoxetine 40 mg oral tablet) 1 tab(s) by mouth Once a day Unchanged tamsulosin (Flomax 0.4 mg oral capsule) 1 cap by mouth Once a day Duration: 5 Days Pharmacy Information [id number]: [address], [place] [id number] [phone] Please take this list to your next doctor s visit. Bring all medications you take, including over the counter medications, herbals and other supplements with you to your doctor s visit. Patients and families are reminded to discard old lists and to update any records with all medication providers or retail pharmacies. Medication Leaflets sulfamethoxazole and trimethoprim (oral/injection) (SUL fa meth OX a zole and trye METH oh prim) Bactrim, Bactrim DS, Sulfatrim Pediatric What is the most important information I should know about sulfamethoxazole and trimethoprim? Use only as directed. Tell your doctor if you use other medicines or have other medical conditions or allergies. What is sulfamethoxazole and trimethoprim? Sulfamethoxazole and trimethoprim is a combination antibiotic used to treat ear infections, urinarytract infections, bronchitis, traveler's diarrhea, shigellosis, and Pneumocystis jiroveci pneumonia. Sulfamethoxazole and trimethoprim may also be used for purposes not listed in this medication guide. What should I discuss with my healthcare provider before using sulfamethoxazole and trimethoprim? You should not use this medicine if you are allergic to sulfamethoxazole or trimethoprim, or if youhave: severe liver disease; kidney disease that is not being treated or monitored; anemia (low red blood cells) caused by folic acid deficiency; a history of low blood platelets after taking trimethoprim or any sulfa drug; or if you take dofetilide. May cause defects. Do not use if you are . Tell your doctor if you become . Do not breastfeed. This medicine should not be given to a child younger than 2 months old. Tell your doctor if you have ever had: kidney or liver disease; a folate (folic acid) deficiency; asthma or severe allergies; HIV or AIDS; a thyroid disorder; malnourishment; alcoholism; an electrolyte imbalance (such as low blood sodium or high potassium); porphyria, or flggfxt-8-jfohorjeo dehydrogenase (G6PD) deficiency; or if you use a blood thinner (such as warfarin) and you have routine 'INR' or prothrombin time tests. How should I use sulfamethoxazole and trimethoprim? Follow all directions on your prescription label and read all medication guides or instruction sheets. Use the medicine exactly as directed. Sulfamethoxazole and trimethoprim oral is taken by mouth. Shake the oral suspension (liquid). Measure a dose with the supplied measuring device (not a kitchen spoon). Sulfamethoxazole and trimethoprim injection is given in a vein. Be sure you understand how to properly mix this medicine with a liquid (diluent) and how to store the mixture. Ask your doctor or pharmacist if you don't understand how to use an injection. Prepare an injection only when you are ready to give it. Call your pharmacist if the medicine lookscloudy, has changed colors, or has particles in it. Mixed medicine must be used within 2 to 6 hours depending on the amount of diluent in the mixture. Follow your doctor's instructions. Do not refrigerate mixed medicine. Do not reuse a needle or syringe. Place them in a puncture-proof 'sharps' container and dispose of it following state or local laws. Keep out of the reach of children and pets. Drink plenty of fluids to prevent kidney stones. Antibiotic medicines can cause diarrhea. Tell your doctor if you have diarrhea that is watery or bloody. Keep using this medicine even if your symptoms quickly improve. Skipping doses could make your infection resistant to medication. Sulfamethoxazole and trimethoprim will not treat a viral infection (flu or a common cold). You may need blood and urine tests, and this medicine may be stopped based on the results. Store at room temperature away from moisture, heat, and light. Do not refrigerate. What happens if I miss a dose? Use the medicine as soon as you can, but skip the missed dose if it is almost time for your next dose. Do not use two doses at one time. What happens if I overdose? Seek emergency medical attention or call the Poison Help line at . Overdose symptoms may include loss of appetite, vomiting, fever, blood in your urine, yellowing of your skin or eyes, confusion, or loss of consciousness. What should I avoid while using sulfamethoxazole and trimethoprim? If you use the injection form of this medicine, do not eat or drink anything that contains propylene glycol (an ingredient in many processed foods, soft drinks, and medicines). Dangerous effects could occur. Sulfamethoxazole and trimethoprim could make you sunburn more easily. Avoid sunlight or tanning beds. Wear protective clothing and use sunscreen (SPF 30 or higher) when you are outdoors. What are the possible side effects of sulfamethoxazole and trimethoprim? Get emergency medical help if you have signs of an allergic reaction (hives, cough, chest pain, shortness of breath, swelling in your face or throat) or a severe skin reaction (fever, sore throat, burning eyes, skin pain, red or purple skin rash with blistering and peeling). Seek medical treatment if you have a serious drug reaction that can affect many parts of your body.Symptoms may include: skin rash, fever, swollen glands, joint pain, muscle aches, severe weakness, pale skin, unusual bruising, or yellowing of your skin or eyes. Call your doctor at once if you have: severe stomach pain, diarrhea that is watery or bloody (even if it occurs months after your last dose); any skin rash, no matter how mild; yellowing of your skin or eyes; a seizure; new or unusual joint pain; increased or decreased urination; swelling, bruising, or irritation around the IV needle; increased thirst, dry mouth, fruity breath odor; new or worsening cough, fever, trouble breathing; high blood potassium--nausea, weakness, tingly feeling, chest pain, irregular heartbeats, loss of movement; low blood sodium--headache, confusion, problems with thinking or memory, weakness, feeling unsteady; or low blood cell counts--fever, chills, mouth sores, skin sores, easy bruising, unusual bleeding, pale skin, cold hands and feet, feeling light-headed or short of breath. Common side effects may include: nausea, vomiting, loss of appetite; or skin rash. This is not a complete list of side effects and others may occur. Call your doctor for medical advice about side effects. You may report side effects to FDA at 8-817-AAB-0482. What other drugs will affect sulfamethoxazole and trimethoprim? You may need more frequent check-ups or medical tests if you also use medicine to treat depression,diabetes, seizures, or HIV. Tell your doctor about all your current medicines. Many drugs can affect sulfamethoxazole and trimethoprim, especially: amantadine, digoxin, cyclosporine, indomethacin, leucovorin, methotrexate, procainamide, pyrimethamine; an 'MICHELE inhibitor' heart or blood presure medication (benazepril, enalapril, lisinopril, quinapril,ramipril, and others); or a diuretic or 'water pill'. This list is not complete and many other drugs may affect sulfamethoxazole and trimethoprim. This includes prescription and ueun-rwa-msaropv medicines, vitamins, and herbal products. Not all possibledrug interactions are listed here. Where can I get more information? Your pharmacist can provide more information about sulfamethoxazole and trimethoprim. Remember, keep this and all other medicines out of the reach of children, never share your medicines with others, and use this medication only for the indication prescribed. Every effort has been made to ensure that the information provided by [employer]. ('[employer]') is accurate, up-to-date, and complete, but no guarantee is made to that effect. Drug information contained herein may be time sensitive. [employer] information has been compiled for use by healthcare practitioners and consumers in the [place] and therefore [employer] does not warrant that uses outside of the [place] are appropriate, unless specifically indicated otherwise. [employer] drug information does not endorse drugs, diagnose patients or recommend therapy. [employer] drug information isan informational resource designed to assist licensed healthcare practitioners in caring for their p atients and/or to serve consumers viewing this service as a supplement to, and not a substitute for, the expertise, skill, knowledge and judgment of healthcare practitioners. The absence of a warningfor a given drug or drug combination in no way should be construed to indicate that the drug or drug combination is safe, effective or appropriate for any given patient. [employer] does not assume any responsibility for any aspect of healthcare administered with the aid of information [employer] provides. The information contained herein is not intended to cover all possible uses, directions, precautions, warnings, drug interactions, allergic reactions, or adverse effects. If you have questions about the drugs you are taking, check with your doctor, nurse or pharmacist. Copyright 3758-0191 [employer]. Version: 13.. Revision Date: 11/22/2022. Education Materials Abscess (Incision & Drainage) An abscess is sometimes called a boil. It happens when bacteria get trapped under the skin and start to grow. Pus forms inside the abscess as the body responds to the bacteria. An abscess can happen with an insect bite, ingrown hair, blocked oil gland, pimple, cyst, or puncture wound. Your healthcare provider has drained the pus from your abscess. If the abscess pocket was large, your healthcare provider may have put in gauze packing. Your provider will need to remove it on your next visit. He or she may also replace it at that time. You may not need antibiotics to treat a simple abscess, unless the infection is spreading into the skin around the wound (cellulitis). The wound will take about 1 to 2 weeks to heal, depending on the size of the abscess. Healthy tissue will grow from the bottom and sides of the opening until it seals over. Home care These tips can help your wound heal: The wound may drain for the first 2 days. Cover the wound with a clean dry dressing. Change the dressing if it becomes soaked with blood or pus. If a gauze packing was placed inside the abscess pocket, you may be told to remove it yourself. Youmay do this in the shower. Once the packing is removed, you should wash the area in the shower, or clean the area as directed by your provider. Continue to do this until the skin opening has closed. Make sure you wash your hands after changing the packing or cleaning the wound. If you were prescribed antibiotics, take them as directed until they are all gone. You may use acetaminophen or ibuprofen to control pain, unless another pain medicine was prescribed. If you have liver disease or ever had a stomach ulcer, talk with your doctor before using these medicines. Follow-up care Follow up with your healthcare provider, or as advised. If a gauze packing was put in your wound, it should be removed in 1 to 2 days. Check your wound every day for any signs that the infection is getting worse. The signs are listed below. When to seek medical advice Call your healthcare provider right away if any of these occur: Increasing redness or swelling Red streaks in the skin leading away from the wound Increasing local pain or swelling Continued pus draining from the wound 2 days after treatment Fever of 100.4 F (38 C) or higher, or as directed by your healthcare provider Boil returns when you are at home [id number] [employer]. [address] [place] [address], [place] [address]. All rights reserved. This information is not intended as a substitute for professional medical care. Always follow yourhealthcare professional's instructions. Additional Information VACCINATE! IT SAVES LIVES! Members of the community who have not yet received the COVID-19 vaccine and would like to receive it can visit one of [facility] vaccine clinics. There are many vaccine clinic locations within the [facility]. For locations and available times, please visit www.[email or web address].[place].gov/. It is important to note that some COVID mobile vaccine clinics are held outdoors and may be canceled in rainy or stormy conditions. To learn more about pediatric vaccinations (ages 5-11), we invite you to visit the [facility] webpage. [email or web address] learn more about the COVID-19 vaccine, we invite you to visit the CDC website for a list of frequently asked questions. https://www.cdc.gov/coronavirus/2019-ncov/vaccines/faq.html [facility] Patient Portal Access Instructions: Stay connected with your healthcare team and access your personal medical information anytime with the [facility] Patient Portal. If you would like a full copy of your medical records please contact the [facility] Medical Records Department Saturday through Saturday between 8a.m. and 4:30p.m. Please follow the directions below to access the portal: 1.Access the email account you provided upon registration to the hospital.2.Look for an invitation email from [facility].3.Open the email and access the invitation link: Accept Invitation to [facility]4.Fill in the required lockwood to create your account. Sign into www.[employer] with your username and password that you created in the above steps to stay up to date. You can then view a summary of results, a summary of your visits, and the ability to download your summaries to your computer or send the information securely to a physician. Remember that your healthcare information is confidential, so carefully consider who you will allow to register on the [employer] Patient Portal for access to your information. You can also access the [employer] [facility] Patient Portal on the [employer]. Simply click on Health Records under [employer] and then click on the [employer] logo. HOW TO SAFELY DISPOSE OF PRESCRIPTION MEDICATIONS Please use one of the following methods to safely dispose of your unused medications. 1.Use a drug disposal kit: the drug disposal pouch allows you to safely discard your old and unuseddrugs. Ask your nurse to give you one when you are discharged.2.Visit a local take-back location: Many local pharmacies and police departments have programs that collect old and unwanted prescriptiondrugs. Call your local pharmacy or go to http://[employer].SPIRIT Navigation/2L1Bu7v to find one close to you.3.Make use of household items: Use cat litter or old coffee grounds to dispose medications if other options arenot available. Mix your drugs with these household products, seal them in an airtight container andthrow it into the garbage. Call [facility]: [phone] to be sure your drugs can be disposed of in this way. Some medicines may require a different approach.4.Never flush your medications down the toilet. IF YOU HAVE BEEN PRESCRIBED AN OPIOIDS FOR PAIN If you have been prescribed an opioid (such as hydrocodone, oxycodone or morphine), it is critical to understand the possible side effects and risks of opioid pain medications. Even when taken as directed, opioids can have several side effects including: Tolerance, meaning you might need to take more of a medication for the same pain relief. Nausea, vomiting and/or constipation. Sleepiness, dizziness, dry mouth, confusion, depression or itching. Physical dependence, meaning you have withdrawal symptoms when a medication is stopped ? this can develop within a few days. KNOW YOUR RESPONSIBILITIES It is important to know exactly how much and how often to take the opioid pain medications you are prescribed. Never take opioids in higher amounts or more often than prescribed. Do not combine opioids with alcohol or other drugs that cause drowsiness, such as benzodiazepines, also known as benzos,including diazepam and alprazolam, muscle relaxants or sleep aids. Never sell or share prescriptionopioids. This is illegal. Store opioids in a secure place and out of reach of others (including children, family, friends and visitors). The last page(s) of this document has been signed and retained as a CHART COPY Signatures Patient Education Materials Abscess, Incision And Drainage Medication Leaflets sulfamethoxazole and trimethoprim (oral/injection) My discharge plan and instructions have been reviewed and explained to me and IPATRICIA HAROLD A understand my current condition and have read and understand these discharge instructions. I have received a written copy of the plan/instructions. If I have questions, I am aware that I should contact my doctor. Patient/Production Support Developer Signature: Date/Time: Relationship to Patient: Witness Name/Signature: Date/Time: [facility]01-01-2024 Hospital Discharge instructions Patient Education 04/22/2023 17:50:12 Abrasions Abrasions Abrasions are skin scrapes. Their treatment depends on how large and deep the abrasion is. Home care You may be prescribed an antibiotic cream or ointment to apply to the wound. This helps prevent infection. Follow instructions when using this medicine. General care To care for the abrasion, do the following each day for as long as directed by your healthcare provider. oIf you were given a bandage, change it once a day. If your bandage sticks to the wound, soak it inwarm water until it loosens. oWash the area with soap and warm water. You may do this in a sink or under a tub faucet or shower.Rinse off the soap. Then pat the area dry with a clean towel. oIf antibiotic ointment or cream was prescribed, reapply it to the wound as directed. Cover the wound with a fresh nonstick bandage. If the bandage becomes wet or dirty, change it as soon as possible. oSome antibiotic ointments or cream can cause an allergic reaction or dermatitis. This may cause redness, itching and or hives. If this occurs, stop using the ointment immediately and wash off any remaining ointment. You may need to take some allergy medicine to relieve symptoms. You may use acetaminophen or ibuprofen to control pain unless another pain medicine was prescribed.Talk with your healthcare provider before using these medicines if you have chronic liver or kidneydisease or ever had a stomach ulcer or GI bleeding. Don t use ibuprofen in children younger than six months old. Most skin wounds heal within 10 days. But an infection may occur even with treatment. So it s important to watch the wound for signs of infection as listed below. Follow-up care Follow up with your healthcare provider, or as advised. When to seek medical advice Call your healthcare provider right away if any of these occur: Fever of 100.4 F (38 C) or higher, or as directed by your healthcare provider Increasing pain, redness, swelling, or drainage from the wound Bleeding from the wound that does not stop after a few minutes of steady, firm pressure Decreased ability to move any body part near the wound [id number] [employer]. [address] [place] [address]. All rights reserved. This information is not intended as a substitute for professional medical care. Always follow yourhealthcare professional's instructions. Follow Up Care 04/22/2023 17:44:49 With:Follow up with primary care provider Address:Unknown When:2-4 days [facility] 01-01-2024 Note Discharge Instructions Thank you for allowing [facility] to assist you with your healthcare needs. The following is importantdischarge information regarding your hospital visit. Diagnosis from Today's Visit Abrasion of right lower leg Fall Leg pain-swelling What to Do Next Instructions from Your Care Team No qualifying data available. Post Acute Orders No qualifying data available. You Need to Schedule the Following Appointments Follow Up with Follow up with primary care provider When Within 2-4 days Allergies Lexapro Medications Please ask your primary doctor or pharmacist before taking any other medication not listed, including over the counter drugs, herbal medications, vitamins and or supplements as they may interact withyour home medications. What How Much When Why Instructions Last Dose Unchanged albuterol (ProAir HFA MDI (90 mcg/ inh) inhalation aerosol) 1 puff(s) by inhalation Every 4 hours Bronchitis, acute Duration: 30 Days Unchanged aspirin 81 Milligram by mouth Every day Unchanged atorvastatin (atorvastatin 40 mg oral tablet) 1 tab(s) by mouth Once a day Unchanged busPIRone (busPIRone 10 mg oral tablet) 1 tab(s) by mouth Two (2) times a day As needed Unchanged DME (Pen needles 4 mm) See instructions DM type 2, goal HbA1c < 7.5% Si pen needle daily Dispense: 1 box monthly RF: 12 Unchanged glimepiride (glimepiride 1 mg oral tablet) 1 tab(s) by mouth Once a day DM type 2, goal HbA1c < 7.5% Unchanged insulin detemir (Levemir) (Levemir FlexTouch 100 units/ mL 3 mL Pen) 30 unit(s) Subcutaneous Daily at bedtime DM type 2, goal HbA1c < 7.5% Duration: 30 Days rotate injection sites Unchanged levothyroxine (levothyroxine 300 mcg (0.3 mg) oral tablet) 1 tab(s) by mouth Once a day Unchanged metFORMIN (metFORMIN 500 mg oral tablet, extended release) 2 tab(s) by mouth Two (2) times a day Unchanged metoprolol (Metoprolol Succinate ER 100 mg oral tablet, extended release) 1 tab(s) by mouth Once a day Unchanged PARoxetine (PARoxetine 40 mg oral tablet) 1 tab(s) by mouth Once a day Unchanged tamsulosin (Flomax 0.4 mg oral capsule) 1 cap by mouth Once a day Duration: 5 Days Please take this list to your next doctor s visit. Bring all medications you take, including over the counter medications, herbals and other supplements with you to your doctor s visit. Patients and families are reminded to discard old lists and to update any records with all medication providers or retail pharmacies. Education Materials Abrasions Abrasions are skin scrapes. Their treatment depends on how large and deep the abrasion is. Home care You may be prescribed an antibiotic cream or ointment to apply to the wound. This helps prevent infection. Follow instructions when using this medicine. General care To care for the abrasion, do the following each day for as long as directed by your healthcare provider. oIf you were given a bandage, change it once a day. If your bandage sticks to the wound, soak it inwarm water until it loosens. oWash the area with soap and warm water. You may do this in a sink or under a tub faucet or shower.Rinse off the soap. Then pat the area dry with a clean towel. oIf antibiotic ointment or cream was prescribed, reapply it to the wound as directed. Cover the wound with a fresh nonstick bandage. If the bandage becomes wet or dirty, change it as soon as possible. oSome antibiotic ointments or cream can cause an allergic reaction or dermatitis. This may cause redness, itching and or hives. If this occurs, stop using the ointment immediately and wash off any remaining ointment. You may need to take some allergy medicine to relieve symptoms. You may use acetaminophen or ibuprofen to control pain unless another pain medicine was prescribed.Talk with your healthcare provider before using these medicines if you have chronic liver or kidneydisease or ever had a stomach ulcer or GI bleeding. Don t use ibuprofen in children younger than six months old. Most skin wounds heal within 10 days. But an infection may occur even with treatment. So it s important to watch the wound for signs of infection as listed below. Follow-up care Follow up with your healthcare provider, or as advised. When to seek medical advice Call your healthcare provider right away if any of these occur: Fever of 100.4 F (38 C) or higher, or as directed by your healthcare provider Increasing pain, redness, swelling, or drainage from the wound Bleeding from the wound that does not stop after a few minutes of steady, firm pressure Decreased ability to move any body part near the wound 4413-9628 [employer]. [address] [place] [address]. All rights reserved. This information is not intended as a substitute for professional medical care. Always follow yourhealthcare professional's instructions. Additional Information VACCINATE! IT SAVES LIVES! Members of the community who have not yet received the COVID-19 vaccine and would like to receive it can visit one of [facility] vaccine clinics. There are many vaccine clinic locations within the [facility]. For locations and available times, please visit [email or web address]/. It is important to note that some COVID mobile vaccine clinics are held outdoors and may be canceled in rainy or stormy conditions. To learn more about pediatric vaccinations (ages 5-11), we invite you to visit the [facility] webpage. [email or web address]/[email or web address] [email or web address] learn more about the COVID-19 vaccine, we invite you to visit the CDC website for a list of frequently asked questions. https://www.cdc.gov/coronavirus/2019-ncov/vaccines/faq.html [facility] Patient Portal Access Instructions: Stay connected with your healthcare team and access your personal medical information anytime with the [facility] Patient Portal. If you would like a full copy of your medical records please contact the [facility] Medical Records Department Saturday through Saturday between 8a.m. and 4:30p.m. Please follow the directions below to access the portal: 1.Access the email account you provided upon registration to the [facility].2.Look for an invitation email from [facility].3.Open the email and access the invitation link: Accept Invitation to [facility]4.Fill in the required lockwood to create your account. Sign into www.[employer] with your username and password that you created in the above steps to stay up to date. You can then view a summary of results, a summary of your visits, and the ability to download your summaries to your computer or send the information securely to a physician. Remember that your healthcare information is confidential, so carefully consider who you will allow to register on the [facility] Patient Portal for access to your information. You can also access the [facility] Patient Portal on the [employer]. Simply click on Health Records under HealthData and then click on the [employer] logo. HOW TO SAFELY DISPOSE OF PRESCRIPTION MEDICATIONS Please use one of the following methods to safely dispose of your unused medications. 1.Use a drug disposal kit: the drug disposal pouch allows you to safely discard your old and unuseddrugs. Ask your nurse to give you one when you are discharged.2.Visit a local take-back location: Many local pharmacies and police departments have programs that collect old and unwanted prescriptiondrugs. Call your local pharmacy or go to http://bit.ly/4P7Xj6i to find one close to you.3.Make use of household items: Use cat litter or old coffee grounds to dispose medications if other options arenot available. Mix your drugs with these household products, seal them in an airtight container andthrow it into the garbage. Call [facility]: [phone] to be sure your drugs can be disposed of in this way. Some medicines may require a different approach.4.Never flush your medications down the toilet. IF YOU HAVE BEEN PRESCRIBED AN OPIOIDS FOR PAIN If you have been prescribed an opioid (such as hydrocodone, oxycodone or morphine), it is critical to understand the possible side effects and risks of opioid pain medications. Even when taken as directed, opioids can have several side effects including: Tolerance, meaning you might need to take more of a medication for the same pain relief. Nausea, vomiting and/or constipation. Sleepiness, dizziness, dry mouth, confusion, depression or itching. Physical dependence, meaning you have withdrawal symptoms when a medication is stopped ? this can develop within a few days. KNOW YOUR RESPONSIBILITIES It is important to know exactly how much and how often to take the opioid pain medications you are prescribed. Never take opioids in higher amounts or more often than prescribed. Do not combine opioids with alcohol or other drugs that cause drowsiness, such as benzodiazepines, also known as benzos,including diazepam and alprazolam, muscle relaxants or sleep aids. Never sell or share prescriptionopioids. This is illegal. Store opioids in a secure place and out of reach of others (including children, family, friends and visitors). The last page(s) of this document has been signed and retained as a CHART COPY Signatures Patient Education Materials Abrasions Medication Leaflets My discharge plan and instructions have been reviewed and explained to me and IPATRICIA HAROLD A understand my current condition and have read and understand these discharge instructions. I have received a written copy of the plan/instructions. If I have questions, I am aware that I should contact my doctor. Patient/Production Support Developer Signature: Date/Time: Relationship to Patient: Witness Name/Signature: Date/Time: [facility] Florinaduglas [id number] Hospital Discharge instructions Patient Education 02/28/2023 16:40:11 Hypertension, Established Established High Blood Pressure High blood pressure (hypertension) is a chronic disease. Often, healthcare providers don t know what causes it. But it can be caused by certain health conditions and medicines. If you have high blood pressure, you may not have any symptoms. If you do have symptoms, they may include headache, dizziness, changes in your vision, chest pain, and shortness of breath. But even without symptoms, high blood pressure that s not treated raises your risk for heart attack, heart failure, and stroke. High blood pressure is a serious health risk and shouldn t be ignored. Blood pressure measurements are given as 2 numbers. Systolic blood pressure is the upper number. This is the pressure when the heart contracts. Diastolic blood pressure is the lower number. This is the pressure when the heart relaxes between beats. You will see your blood pressure readings written together. For example, a person with a systolic pressure of 118 and a diastolic pressure of 78 will have 118/78 written in the medical record. Blood pressure is categorized as normal, elevated, or stage 1 or stage 2 high blood pressure: Normal blood pressure is systolic of less than 120 and diastolic of less than 80 (120/80) Elevated blood pressure is systolic of 120 to 129 and diastolic less than 80 Stage 1 high blood pressure is systolic is 130 to 139 or diastolic between 80 to 89 Stage 2 high blood pressure is when systolic is 140 or higher or the diastolic is 90 or higher Home care If you have high blood pressure, follow these home care guidelines to help lower your blood pressure. If you are taking medicines for high blood pressure, these methods may reduce or end your need for medicines in the future. Start a weight-loss program if you are overweight. Cut back on how much salt you get in your diet. Here s how to do this: oDon t eat foods that have a lot of salt. These include olives, pickles, smoked meats, and salted potato chips. oDon t add salt to your food at the table. oUse only small amounts of salt when cooking. Start an exercise program. Talk with your healthcare provider about the type of exercise program that would be best for you. It doesn't have to be hard. Even brisk walking for 20 minutes 3 times a week is a good form of exercise. Don t take medicines that stimulate the heart. This includes many athu-fri-qayruhl cold and sinus decongestant pills and sprays, as well as diet pills. Check the warnings about high blood pressure onthe label. Before buying any tehy-vjo-qsywtdv medicines or supplements, always ask the pharmacist about the product's potential interaction with your high blood pressure and your high blood pressure medicines. Stimulants such as amphetamine or cocaine could be deadly for someone with high blood pressure. Never take these. Limit how much caffeine you get in your diet. Switch to caffeine-free products. Stop smoking. If you are a long-time smoker, this can be hard. Talk to your healthcare provider about medicines and nicotine replacement options to help you. Also, enroll in a stop-smoking program tomake it more likely that you will quit for good. Learn how to handle stress. This is an important part of any program to lower blood pressure. Learnabout relaxation methods like meditation, yoga, or biofeedback. If your provider prescribed medicines, take them exactly as directed. Missing doses may cause your blood pressure get out of control. If you miss a dose or doses, check with your healthcare provider or pharmacist about what to do. Consider buying an automatic blood pressure machine to check your blood pressure at home. Ask your provider for a recommendation. You can get one of these at most pharmacies. The [place] [employer] recommends the following guidelines for home blood pressure monitoring: Don't smoke or drink coffee for 30 minutes before taking your blood pressure. Go to the bathroom before the test. Relax for 5 minutes before taking the measurement. Sit with your back supported (don't sit on a couch or soft chair); keep your feet on the floor uncrossed. Place your arm on a solid flat surface (like a table) with the upper part of the arm at heartlevel. Place the middle of the cuff directly above the bend of the elbow. Check the monitor's instruction manual for an illustration. Take multiple readings. When you measure, take 2 to 3 readings one minute apart and record all of the results. Take your blood pressure at the same time every day, or as your healthcare provider recommends. Record the date, time, and blood pressure reading. Take the record with you to your next medical appointment. If your blood pressure monitor has a built-in memory, simply take the monitor with you to your next appointment. Call your provider if you have several high readings. Don't be frightened by a single high blood pressure reading, but if you get several high readings, check in with your healthcare provider. Note: When blood pressure reaches a systolic (top number) of 180 or higher OR diastolic (bottom number) of 110 or higher, seek emergency medical treatment. Follow-up care You will need to see your healthcare provider regularly. This is to check your blood pressure and to make changes to your medicines. Make a follow-up appointment as directed. Bring the record of yourhome blood pressure readings to the appointment. When to seek medical advice Call your healthcare provider right away if any of these occur: Blood pressure reaches a systolic (upper number) of 180 or higher OR a diastolic (bottom number) of110 or higher Chest pain or shortness of breath Severe headache Throbbing or rushing sound in the ears Nosebleed Sudden severe pain in your belly (abdomen) Extreme drowsiness, confusion, or fainting Dizziness or spinning sensation (vertigo) Weakness of an arm or leg or one side of the face You have problems speaking or seeing 9236-8108 [employer]. [address] [place] [address]. All rights reserved. This information is not intended as a substitute for professional medical care. Always follow yourhealthcare professional's instructions. Follow Up Care 02/28/2023 15:25:07 With:Follow up with primary care provider Address:Unknown When:2-4 days Comments:Follow-up with your doctor, be sure to recheck your blood pressure, continue taking blood pressure medicine. Return if any worsening or concerning symptoms. [facility] 11-09-2023 Note Discharge Instructions Thank you for allowing [facility] to assist you with your healthcare needs. The following is importantdischarge information regarding your hospital visit. Diagnosis from Today's Visit HTN - Hypertension Hypertension What to Do Next Instructions from Your Care Team No qualifying data available. Post Acute Orders No qualifying data available. You Need to Schedule the Following Appointments Follow Up with Follow up with primary care provider When Within 2-4 days Why: Follow-up with your doctor, be sure to recheck your blood pressure, continue taking blood pressure medicine. Return if any worsening or concerning symptoms. Allergies Lexapro Medications Please ask your primary doctor or pharmacist before taking any other medication not listed, including over the counter drugs, herbal medications, vitamins and or supplements as they may interact withyour home medications. What How Much When Why Instructions Last Dose Unchanged albuterol (ProAir HFA MDI (90 mcg/ inh) inhalation aerosol) 1 puff(s) by inhalation Every 4 hours Bronchitis, acute Duration: 30 Days Unchanged aspirin 81 Milligram by mouth Every day Unchanged atorvastatin (atorvastatin 40 mg oral tablet) 1 tab(s) by mouth Once a day Unchanged busPIRone (busPIRone 10 mg oral tablet) 1 tab(s) by mouth Two (2) times a day As needed Unchanged DME (Pen needles 4 mm) See instructions DM type 2, goal HbA1c < 7.5% Si pen needle daily Dispense: 1 box monthly RF: 12 Unchanged glimepiride (glimepiride 1 mg oral tablet) 1 tab(s) by mouth Once a day DM type 2, goal HbA1c < 7.5% Unchanged insulin detemir (Levemir) (Levemir FlexTouch 100 units/ mL 3 mL Pen) 30 unit(s) Subcutaneous Daily at bedtime DM type 2, goal HbA1c < 7.5% Duration: 30 Days rotate injection sites Unchanged levothyroxine (levothyroxine 300 mcg (0.3 mg) oral tablet) 1 tab(s) by mouth Once a day Unchanged metFORMIN (metFORMIN 500 mg oral tablet, extended release) 2 tab(s) by mouth Two (2) times a day Unchanged metoprolol (Metoprolol Succinate ER 100 mg oral tablet, extended release) 1 tab(s) by mouth Once a day Unchanged PARoxetine (PARoxetine 40 mg oral tablet) 1 tab(s) by mouth Once a day Unchanged tamsulosin (Flomax 0.4 mg oral capsule) 1 cap by mouth Once a day Duration: 5 Days Please take this list to your next doctor s visit. Bring all medications you take, including over the counter medications, herbals and other supplements with you to your doctor s visit. Patients and families are reminded to discard old lists and to update any records with all medication providers or retail pharmacies. Education Materials Established High Blood Pressure High blood pressure (hypertension) is a chronic disease. Often, healthcare providers don t know what causes it. But it can be caused by certain health conditions and medicines. If you have high blood pressure, you may not have any symptoms. If you do have symptoms, they may include headache, dizziness, changes in your vision, chest pain, and shortness of breath. But even without symptoms, high blood pressure that s not treated raises your risk for heart attack, heart failure, and stroke. High blood pressure is a serious health risk and shouldn t be ignored. Blood pressure measurements are given as 2 numbers. Systolic blood pressure is the upper number. This is the pressure when the heart contracts. Diastolic blood pressure is the lower number. This is the pressure when the heart relaxes between beats. You will see your blood pressure readings written together. For example, a person with a systolic pressure of 118 and a diastolic pressure of 78 will have 118/78 written in the medical record. Blood pressure is categorized as normal, elevated, or stage 1 or stage 2 high blood pressure: Normal blood pressure is systolic of less than 120 and diastolic of less than 80 (120/80) Elevated blood pressure is systolic of 120 to 129 and diastolic less than 80 Stage 1 high blood pressure is systolic is 130 to 139 or diastolic between 80 to 89 Stage 2 high blood pressure is when systolic is 140 or higher or the diastolic is 90 or higher Home care If you have high blood pressure, follow these home care guidelines to help lower your blood pressure. If you are taking medicines for high blood pressure, these methods may reduce or end your need for medicines in the future. Start a weight-loss program if you are overweight. Cut back on how much salt you get in your diet. Here s how to do this: oDon t eat foods that have a lot of salt. These include olives, pickles, smoked meats, and salted potato chips. oDon t add salt to your food at the table. oUse only small amounts of salt when cooking. Start an exercise program. Talk with your healthcare provider about the type of exercise program that would be best for you. It doesn't have to be hard. Even brisk walking for 20 minutes 3 times a week is a good form of exercise. Don t take medicines that stimulate the heart. This includes many xifg-cya-yjrpukr cold and sinus decongestant pills and sprays, as well as diet pills. Check the warnings about high blood pressure onthe label. Before buying any wyuc-ydd-rzrgoho medicines or supplements, always ask the pharmacist about the product's potential interaction with your high blood pressure and your high blood pressure medicines. Stimulants such as amphetamine or cocaine could be deadly for someone with high blood pressure. Never take these. Limit how much caffeine you get in your diet. Switch to caffeine-free products. Stop smoking. If you are a long-time smoker, this can be hard. Talk to your healthcare provider about medicines and nicotine replacement options to help you. Also, enroll in a stop-smoking program tomake it more likely that you will quit for good. Learn how to handle stress. This is an important part of any program to lower blood pressure. Learnabout relaxation methods like meditation, yoga, or biofeedback. If your provider prescribed medicines, take them exactly as directed. Missing doses may cause your blood pressure get out of control. If you miss a dose or doses, check with your healthcare provider or pharmacist about what to do. Consider buying an automatic blood pressure machine to check your blood pressure at home. Ask your provider for a recommendation. You can get one of these at most pharmacies. The [place] [employer] recommends the following guidelines for home blood pressure monitoring: Don't smoke or drink coffee for 30 minutes before taking your blood pressure. Go to the bathroom before the test. Relax for 5 minutes before taking the measurement. Sit with your back supported (don't sit on a couch or soft chair); keep your feet on the floor uncrossed. Place your arm on a solid flat surface (like a table) with the upper part of the arm at heartlevel. Place the middle of the cuff directly above the bend of the elbow. Check the monitor's instruction manual for an illustration. Take multiple readings. When you measure, take 2 to 3 readings one minute apart and record all of the results. Take your blood pressure at the same time every day, or as your healthcare provider recommends. Record the date, time, and blood pressure reading. Take the record with you to your next medical appointment. If your blood pressure monitor has a built-in memory, simply take the monitor with you to your next appointment. Call your provider if you have several high readings. Don't be frightened by a single high blood pressure reading, but if you get several high readings, check in with your healthcare provider. Note: When blood pressure reaches a systolic (top number) of 180 or higher OR diastolic (bottom number) of 110 or higher, seek emergency medical treatment. Follow-up care You will need to see your healthcare provider regularly. This is to check your blood pressure and to make changes to your medicines. Make a follow-up appointment as directed. Bring the [facility] pressure readings to the appointment. When to seek medical advice Call your healthcare provider right away if any of these occur: Blood pressure reaches a systolic (upper number) of 180 or higher OR a diastolic (bottom number) of110 or higher Chest pain or shortness of breath Severe headache Throbbing or rushing sound in the ears Nosebleed Sudden severe pain in your belly (abdomen) Extreme drowsiness, confusion, or fainting Dizziness or spinning sensation (vertigo) Weakness of an arm or leg or one side of the face You have problems speaking or seeing [id number] [employer]. [address] [place] [address]. All rights reserved. This information is not intended as a substitute for professional medical care. Always follow yourhealthcare professional's instructions. Additional Information VACCINATE! IT SAVES LIVES! Members of the community who have not yet received the COVID-19 vaccine and would like to receive it can visit one of [facility] vaccine clinics. There are many vaccine clinic locations within the [facility]. For locations and available times, please visit [email or web address]/. It is important to note that some COVID mobile vaccine clinics are held outdoors and may be canceled in rainy or stormy conditions. To learn more about pediatric vaccinations (ages 5-11), we invite you to visit the [facility] webpage. [email or web address]/[email or web address] learn more about the COVID-19 vaccine, we invite you to visit the CDC website for a list of frequently asked questions. https://www.cdc.gov/coronavirus/2019-ncov/vaccines/faq.html [facility] Patient Portal Access Instructions: Stay connected with your healthcare team and access your personal medical information anytime with the [facility] Patient Portal. If you would like a full copy of your medical records please contact the [facility] Medical Records Department Saturday through Saturday between 8a.m. and 4:30p.m. Please follow the directions below to access the portal: 1.Access the email account you provided upon registration to the [facility].2.Look for an invitation email from [facility].3.Open the email and access the invitation link: Accept Invitation to [facility] [employer]4.Fill in the required lockwood to create your account. Sign into [email or web address] with your username and password that you created in the above steps to stay up to date. You can then view a summary of results, a summary of your visits, and the ability to download your summaries to your computer or send the information securely to a physician. Remember that your healthcare information is confidential, so carefully consider who you will allow to register on the [facility] [employer] Patient Portal for access to your information. You can also access the [facility] [employer] Patient Portal on the [employer]. Simply click on Health Records under [employer] and then click on the [facility] logo. HOW TO SAFELY DISPOSE OF PRESCRIPTION MEDICATIONS Please use one of the following methods to safely dispose of your unused medications. 1.Use a drug disposal kit: the drug disposal pouch allows you to safely discard your old and unuseddrugs. Ask your nurse to give you one when you are discharged.2.Visit a local take-back location: Many local pharmacies and police departments have programs that collect old and unwanted prescriptiondrugs. Call your local pharmacy or go to http://bit.SPIRIT Navigation/1Q0Vz8o to find one close to you.3.Make use of household items: Use cat litter or old coffee grounds to dispose medications if other options arenot available. Mix your drugs with these household products, seal them in an airtight container andthrow it into the garbage. Call [facility]: [phone] to be sure your drugs can be disposed of in this way. Some medicines may require a different approach.4.Never flush your medications down the toilet. IF YOU HAVE BEEN PRESCRIBED AN OPIOIDS FOR PAIN If you have been prescribed an opioid (such as hydrocodone, oxycodone or morphine), it is critical to understand the possible side effects and risks of opioid pain medications. Even when taken as directed, opioids can have several side effects including: Tolerance, meaning you might need to take more of a medication for the same pain relief. Nausea, vomiting and/or constipation. Sleepiness, dizziness, dry mouth, confusion, depression or itching. Physical dependence, meaning you have withdrawal symptoms when a medication is stopped ? this can develop within a few days. KNOW YOUR RESPONSIBILITIES It is important to know exactly how much and how often to take the opioid pain medications you are prescribed. Never take opioids in higher amounts or more often than prescribed. Do not combine opioids with alcohol or other drugs that cause drowsiness, such as benzodiazepines, also known as benzos,including diazepam and alprazolam, muscle relaxants or sleep aids. Never sell or share prescriptionopioids. This is illegal. Store opioids in a secure place and out of reach of others (including children, family, friends and visitors). The last page(s) of this document has been signed and retained as a CHART COPY Signatures Patient Education Materials Hypertension, Established Medication Leaflets My discharge plan and instructions have been reviewed and explained to me and IPATRICIA HAROLD A understand my current condition and have read and understand these discharge instructions. I have received a written copy of the plan/instructions. If I have questions, I am aware that I should contact my doctor. Patient/Production Support Developer Signature: Date/Time: Relationship to Patient: Witness Name/Signature: Date/Time: [facility]09-16-2023 Hospital Discharge instructions Patient Education 01/05/2023 02:46:38 Kidney Stone w/ Colic Kidney Stone with Pain The sharp cramping pain on either side of your lower back and nausea/vomiting that you have are because of a small stone that has formed in the kidney. It is now passing down a narrow tube (ureter) on its way to your bladder. Once the stone reaches your bladder, the pain will often stop. But it maycome back as the stone continues to pass out of the bladder and through the urethra. The stone may pass in your urine stream in one piece. The size may be 1/16 inch to 1/4 inch (1 mm to 6 mm). Or, the stone may break up into minesh fragments that you may not even notice. Once you have had a kidney stone, you are at risk of getting another one in the future. There are 4types of kidney stones. Eighty percent are calcium stones mostly calcium oxalate but also some withcalcium phosphate. The other 3 types include uric acid stones, struvite stones (from a preceding infection), and rarely, cystine stones. Most stones will pass on their own, but may take from a few hours to a few days. Sometimes the stone is too large to pass by itself. In that case, the healthcare provider will need to use other ways to remove the stone. These techniques include: Lithotripsy. This uses ultrasound waves to break up the stone. Ureteroscopy. This pushes a basket-like instrument through the urethra and bladder and into the ureter to pull out the stone. Various types of direct surgery through the skin Home care The following are general care guidelines: Drink plenty of fluids. This means at least 12, 8-ounce glasses of fluid mostly water a day. Each time you urinate, do so in a jar. Pour the urine from the jar through the strainer and into the toilet. Continue doing this until 24 hours after your pain stops. By then, if there was a kidney stone, it should pass from your bladder. Some stones dissolve into sand-like particles and pass rightthrough the strainer. In that case, you won t ever see a stone. Save any stone that you find in the strainer and bring it to your healthcare provider to look at. It may be possible to stop certain types of stones from forming. For this reason, it is important to know what kind of stone you have. Try to stay as active as possible. This will help the stone pass. Don't stay in bed unless your pain keeps you from getting up. You may notice a red, pink, or brown color to your urine. This is normal while passing a kidney stone. If you develop pain, you may take ibuprofen or naproxen for pain, unless another medicine was prescribed. If you have chronic liver or kidney disease, talk with your healthcare provider before takingthese medicines. Also talk with your provider if you've had a stomach ulcer or GI bleeding. Preventing stones Each year for the next 5 to 7 years, you are at risk that a new stone will form. Your risk is a 50%chance over this time period. The risk is higher if you have a family history of kidney stones or have certain chronic illnesses like hypertension, obesity, or diabetes. But you can make changes to your lifestyle and diet that can lower your risk for another stone. Most kidney stones are made of calcium. The following is advice for preventing another calcium stone. If you don t know the type of stone you have, follow this advice until the cause of your stone isfound. Things that help: The most important thing you can do is to drink plenty of fluids each day. See home care above. Eat foods that contain phytates. These include wheat, rice, rye, barley, and beans. Phytates are substances that may lower your risk for any type of stone to form. Eat more fruits and vegetables. Choose those that are high in potassium. Eat foods high in natural citrate like fruit and low-sugar fruit juices. Having too little calcium in your diet can put you at risk for calcium kidney stones. Eat a normal amount of calcium in your diet and talk with your healthcare provider if you are taking calcium supplements. Cutting back on your calcium intake may raise your risk. New research shows that eating calcium-rich and oxalate-rich foods together lowers your risk for stones by binding the minerals in thestomach and intestines before they can reach the kidneys. Limit salt intake to 2 grams (1 teaspoon) per day. Use limited amounts when cooking, and don t add salt at the table. Processed and canned foods are usually high in salt. Spinach, rhubarb, peanuts, cashews, almonds, grapefruit, and grapefruit juice are all high oxalate foods. You should limit how much of these you eat. Or eat them with calcium-rich foods. These include dairy products, dark leafy greens, soy products, and calcium-enriched foods. Reducing the amount of animal meat and high protein foods in your diet may lower your risk for uricacid stones. Avoid excess sugar (sucrose) and fructose (sweetener in many soft drinks) in your diet. If you take vitamin C as a supplement, don't take more than 1,000 mg a day. A dietitian or your healthcare provider can give you information about changes in your diet that will help prevent more kidney stones from forming. Follow-up care Follow up with your healthcare provider, or as advised, if the pain lasts more than 48 hours. Talk with your provider about urine and blood tests to find out the cause of your stone. If you had an X-ray, CT scan, or other diagnostic test, you will be told of any new findings that may affect your care. Call 911 Call 911 if you have any of these: Weakness, dizziness, or fainting When to seek medical advice Call your healthcare provider right away if any of these occur: Pain that is not controlled by the medicine given Repeated vomiting or unable to keep down fluids Fever of 100.4 F (38 C) or higher, or as directed by your healthcare provider Passage of solid red or brown urine (can't see through it) or urine with lots of blood clots Foul-smelling or cloudy urine Unable to pass urine for 8 hours and increasing bladder pressure [id number] [employer]. [address] [place] [address]. All rights reserved. This information is not intended as a substitute for professional medical care. Always follow yourhealthcare professional's instructions. Follow Up Care 01/05/2023 01:15:17 With:ZAINA SENIOR MD, [facility] Address: [address] [place] [phone] When:2-4 days [facility] 09-16-2023 Note Discharge Instructions Thank you for allowing [facility] to assist you with your healthcare needs. The following is importantdischarge information regarding your hospital visit. Diagnosis from Today's Visit Flank pain What to Do Next Instructions from Your Care Team No qualifying data available. Post Acute Orders No qualifying data available. You Need to Schedule the Following Appointments Follow Up with ZAINA SENIOR MD, [facility] When Within 2-4 days Where: [address] [place] [phone] Allergies Lexapro Medications Please ask your primary doctor or pharmacist before taking any other medication not listed, including over the counter drugs, herbal medications, vitamins and or supplements as they may interact withyour home medications. What How Much When Why Instructions Last Dose New naproxen (naproxen 500 mg oral tablet) 1 tab(s) by mouth Two (2) times a day Duration: 7 Days Printed Prescription New ondansetron (Zofran 8 mg oral tablet) 1 tab(s) by mouth Three (3) times a day Duration: 5 Days Printed Prescription New tamsulosin (Flomax 0.4 mg oral capsule) 1 cap by mouth Once a day Duration: 5 Days Printed Prescription Unchanged albuterol (ProAir HFA MDI (90 mcg/ inh) inhalation aerosol) 1 puff(s) by inhalation Every 4 hours Bronchitis, acute Duration: 30 Days Unchanged aspirin 81 Milligram by mouth Every day Unchanged atorvastatin (atorvastatin 40 mg oral tablet) 1 tab(s) by mouth Once a day Unchanged busPIRone (busPIRone 10 mg oral tablet) 1 tab(s) by mouth Two (2) times a day As needed Unchanged DME (Pen needles 4 mm) See instructions DM type 2, goal HbA1c < 7.5% Si pen needle daily Dispense: 1 box monthly RF: 12 Unchanged glimepiride (glimepiride 1 mg oral tablet) 1 tab(s) by mouth Once a day DM type 2, goal HbA1c < 7.5% Unchanged insulin detemir (Levemir) (Levemir FlexTouch 100 units/ mL 3 mL Pen) 30 unit(s) Subcutaneous Daily at bedtime DM type 2, goal HbA1c < 7.5% Duration: 30 Days rotate injection sites Unchanged levothyroxine (levothyroxine 300 mcg (0.3 mg) oral tablet) 1 tab(s) by mouth Once a day Unchanged metFORMIN (metFORMIN 500 mg oral tablet, extended release) 2 tab(s) by mouth Two (2) times a day Unchanged metoprolol (Metoprolol Succinate ER 100 mg oral tablet, extended release) 1 tab(s) by mouth Once a day Unchanged PARoxetine (PARoxetine 40 mg oral tablet) 1 tab(s) by mouth Once a day Please take this list to your next doctor s visit. Bring all medications you take, including over the counter medications, herbals and other supplements with you to your doctor s visit. Patients and families are reminded to discard old lists and to update any records with all medication providers or retail pharmacies. Medication Leaflets naproxen (na PROX en) Aleve, Aleve Back and Muscle Pain, Aleve Easy Open Arthritis, Aleve Liquid Gels, Anaprox-DS, EC-Naprosyn, Naprelan, Naprosyn What is the most important information I should know about naproxen? Naproxen can increase your risk of fatal heart attack or stroke. Do not use this medicine just before or after heart bypass surgery (coronary artery bypass graft, or CABG). Naproxen may also cause stomach or intestinal bleeding, which can be fatal. What is naproxen? Naproxen is a nonsteroidal anti-inflammatory drug (NSAID). Naproxen is used to treat pain or inflammation caused by conditions such as arthritis, ankylosing spondylitis, tendinitis, bursitis, gout, or menstrual cramps. The delayed-release or extended-release tablets are slower-acting forms of naproxen that are used only for treating chronic conditions such as arthritis or ankylosing spondylitis. These forms of naproxen will not work fast enough to treat acute pain. Naproxen may also be used for purposes not listed in this medication guide. What should I discuss with my healthcare provider before taking naproxen? Naproxen can increase your risk of fatal heart attack or stroke, even if you don't have any risk factors. Do not use this medicine just before or after heart bypass surgery (coronary artery bypass graft, or CABG). Naproxen may also cause stomach or intestinal bleeding, which can be fatal. These conditions can occur without warning while you are using naproxen, especially in older adults. You should not use naproxen if you are allergic to it, or if you have ever had an asthma attack or severe allergic reaction after taking aspirin or an NSAID. Ask a doctor before giving naproxen to a child younger than 12 years old. Ask a doctor or pharmacist if this medicine is safe to use if you have: heart disease, high blood pressure, high cholesterol, diabetes, or if you smoke; a heart attack, stroke, or blood clot; stomach ulcers or bleeding; asthma; liver or kidney disease; fluid retention; or if you take aspirin to prevent heart attack or stroke. If you are , you should not take naproxen unless your doctor tells you to. Taking an NSAID during the last 20 weeks of can cause serious heart or kidney problems in the unborn baby and possible complications with your . It may not be safe to breastfeed while using this medicine. Ask your doctor about any risk. How should I take naproxen? Use exactly as directed on the label, or as prescribed by your doctor. Use the lowest dose that is effective in treating your condition. Shake the oral suspension (liquid) before you measure a dose. Measure a dose with the supplied measuring device (not a kitchen spoon). Take this medicine with food or milk if it upsets your stomach. Always follow directions on the medicine label about giving this medicine to a child. Naproxen doses are based on weight in children. Your child's dose needs may change if the child gains or loses weight. If you use naproxen long-term, you may need frequent medical tests. This medicine can affect the results of certain medical tests. Tell any doctor who treats you that you are using naproxen. Store at room temperature away from moisture, heat, and light. Keep the bottle tightly closed when not in use. What happens if I miss a dose? Since naproxen is used when needed, you may not be on a dosing schedule. Skip any missed dose if it's almost time for your next dose. Do not use two doses at one time. What happens if I overdose? Seek emergency medical attention or call the Poison Help line at . What should I avoid while taking naproxen? Avoid drinking alcohol. It may increase your risk of stomach bleeding. Avoid taking aspirin or other NSAIDs unless your doctor tells you to. Ask a doctor or pharmacist before using other medicines for pain, fever, swelling, or cold/flu symptoms. They may contain ingredients similar to naproxen (such as aspirin, ibuprofen, or ketoprofen). Ask your doctor before using an antacid, and use only the type your doctor recommends. Some antacids can make it harder for your body to absorb naproxen. What are the possible side effects of naproxen? Get emergency medical help if you have signs of an allergic reaction (runny or stuffy nose, wheezing or trouble breathing, hives, swelling in your face or throat) or a severe skin reaction (fever, sore throat, burning eyes, skin pain, red or purple skin rash with blistering and peeling). Stop using naproxen and seek medical treatment if you have a serious drug reaction that can affect many parts of your body. Symptoms may include skin rash, fever, swollen glands, muscle aches, severeweakness, unusual bruising, or yellowing of your skin or eyes. Get emergency medical help if you have signs of a heart attack or stroke: chest pain spreading to your jaw or shoulder, sudden numbness or weakness on one side of the body, slurred speech, leg swelling, feeling short of breath. Stop using naproxen and call your doctor at once if you have: shortness of breath (even with mild exertion); swelling or rapid weight gain; the first sign of any skin rash or blister, no matter how mild; signs of stomach bleeding--bloody or tarry stools, coughing up blood or vomit that looks like coffee grounds; liver problems--nausea, upper stomach pain, loss of appetite, dark urine, mariangel- colored stools, jaundice (yellowing of the skin or eyes); kidney problems--little or no urination, painful urination, swelling in your feet or ankles; or low red blood cells (anemia)--pale skin, unusual tiredness, feeling light-headed or short of breath, cold hands and feet. Common side effects may include: headache; indigestion, heartburn, stomach pain; or flu symptoms; This is not a complete list of side effects and others may occur. Call your doctor for medical advice about side effects. You may report side effects to FDA at 5-099-KUP-8677. What other drugs will affect naproxen? Ask your doctor before using naproxen if you take an antidepressant. Taking certain antidepressantswith an NSAID may cause you to bruise or bleed easily. Ask a doctor or pharmacist before using naproxen with any other medications, especially: other NSAIDs or salicylates (diflunisal, salsalate); antacids and sucralfate; cholestyramine; cyclosporine; digoxin; lithium; methotrexate; pemetrexed; probenecid; warfarin (Coumadin, Jantoven) or similar blood thinners; a diuretic or 'water pill'; or heart or blood pressure medication. This list is not complete. Other drugs may affect naproxen, including prescription and qzqm-bjj-vogcllu medicines, vitamins, and herbal products. Not all possible drug interactions are listed here. Where can I get more information? Your pharmacist can provide more information about naproxen. Remember, keep this and all other medicines out of the reach of children, never share your medicines with others, and use this medication only for the indication prescribed. Every effort has been made to ensure that the information provided by [employer]. [employer]') is accurate, up-to-date, and complete, but no guarantee is made to that effect. Drug information contained herein may be time sensitive. [employer] information has been compiled for use by healthcare practitioners and consumers in the [place] and therefore [employer] does not warrant that uses outside of the [place] are appropriate, unless specifically indicated otherwise. [employer] drug information does not endorse drugs, diagnose patients or recommend therapy. [employer] drug information isan informational resource designed to assist licensed healthcare practitioners in caring for their p atients and/or to serve consumers viewing this service as a supplement to, and not a substitute for, the expertise, skill, knowledge and judgment of healthcare practitioners. The absence of a warningfor a given drug or drug combination in no way should be construed to indicate that the drug or drug combination is safe, effective or appropriate for any given patient. [employer] does not assume any responsibility for any aspect of healthcare administered with the aid of information [employer] provides. The information contained herein is not intended to cover all possible uses, directions, precautions, warnings, drug interactions, allergic reactions, or adverse effects. If you have questions about the drugs you are taking, check with your doctor, nurse or pharmacist. Copyright 8122-7507 [employer]. Version: 22.. Revision Date: 11/22/2022. tamsulosin (easton galen JACKIE sin) Flomax What is the most important information I should know about tamsulosin? Use only as directed. Tell your doctor if you use other medicines or have other medical conditions or allergies. What is tamsulosin? Tamsulosin is used to treat symptoms of benign prostatic hyperplasia (enlarged prostate). Tamsulosin is not approved for use in women or children. Tamsulosin may also be used for purposes not listed in this medication guide. What should I discuss with my healthcare provider before taking tamsulosin? You should not use tamsulosin if you are allergic to it. Tell your doctor if you have ever had: prostate cancer; low blood pressure; an allergy to sulfa drugs; or liver or kidney disease. Tamsulosin can affect your pupils. If you have cataract surgery, tell the surgeon you use this medicine. Ask your doctor about prostate cancer screening before and while taking tamsulosin. Tamsulosin is not approved for use in women. How should I take tamsulosin? Follow all directions on your prescription label and read all medication guides or instruction sheets. Use the medicine exactly as directed. Tamsulosin is usually taken once a day, within 30 minutes after the same meal each day. Swallow the capsule whole and do not crush, chew, break, or open it. Your blood pressure will need to be checked often. If you stop using this medicine, do not start it again without your doctor's advice. Store tightly closed at room temperature, away from moisture and heat. What happens if I miss a dose? Take the medicine as soon as you can, but skip the missed dose if it is almost time for your next dose. Do not take two doses at one time. If you stop using this medicine for several days in a row, do not start it again without your doctor's advice. What happens if I overdose? Seek emergency medical attention or call the Poison Help line at . What should I avoid while taking tamsulosin? Avoid driving or hazardous activity until you know how this medicine will affect you. Your reactions could be impaired. Avoid getting up too fast from a sitting or lying position, or you may feel dizzy. What are the possible side effects of tamsulosin? Get emergency medical help if you have signs of an allergic reaction (hives, difficult breathing, swelling in your face or throat) or a severe skin reaction (fever, sore throat, burning eyes, skin pain, red or purple skin rash with blistering and peeling). Tamsulosin may lower your blood pressure and may cause dizziness or fainting, especially when you first start taking it or your dose changes. Stop using tamsulosin and call your doctor at once if you have: a light-headed feeling, like you might pass out; or a painful erection that lasts 4 hours or longer. Common side effects may include: abnormal ejaculation, decreased amount of semen; dizziness, drowsiness, weakness; runny or stuffy nose, sore throat, cough; back pain, chest pain, headache; nausea, diarrhea; tooth problems; blurred vision; sleep problems (insomnia); or decreased interest in sex. This is not a complete list of side effects and others may occur. Call your doctor for medical advice about side effects. You may report side effects to FDA at 3-834-UUB-2514. What other drugs will affect tamsulosin? Sometimes it is not safe to use certain medicines at the same time. Some drugs can affect your blood levels of other drugs you use, which may increase side effects or make the medicines less effective. Tell your doctor about all your current medicines. Many drugs can affect tamsulosin, especially: cimetidine; medicine to treat impotence or pulmonary arterial hypertension--avanafil (Stendra), sildenafil (Viagra, Revatio), tadalafil (Adcirca, Cialis), or vardenafil (Levitra, Staxyn); or drugs to treat high blood pressure or a prostate disorder--alfuzosin, doxazosin, prazosin, terazosin, silodosin. This list is not complete and many other drugs may affect tamsulosin. This includes prescription and draq-lyp-qbylfkd medicines, vitamins, and herbal products. Not all possible drug interactions are listed here. Where can I get more information? Your doctor or pharmacist can provide more information about tamsulosin. Remember, keep this and all other medicines out of the reach of children, never share your medicines with others, and use this medication only for the indication prescribed. Every effort has been made to ensure that the information provided by [employer]. [employer]') is accurate, up-to-date, and complete, but no guarantee is made to that effect. Drug information contained herein may be time sensitive. [employer] information has been compiled for use by healthcare practitioners and consumers in the [place] and therefore [employer] does not warrant that uses outside of the [place] are appropriate, unless specifically indicated otherwise. [employer] drug information does not endorse drugs, diagnose patients or recommend therapy. [employer] drug information isan informational resource designed to assist licensed healthcare practitioners in caring for their p atients and/or to serve consumers viewing this service as a supplement to, and not a substitute for, the expertise, skill, knowledge and judgment of healthcare practitioners. The absence of a warningfor a given drug or drug combination in no way should be construed to indicate that the drug or drug combination is safe, effective or appropriate for any given patient. [facility] does not assume any responsibility for any aspect of healthcare administered with the aid of information [facility] provides. The information contained herein is not intended to cover all possible uses, directions, precautions, warnings, drug interactions, allergic reactions, or adverse effects. If you have questions about the drugs you are taking, check with your doctor, nurse or pharmacist. Copyright 8358-8926 [facility]. Version: 02.20. Revision Date: 07/13/2022. ondansetron (oral) (on LICO se flor) What is the most important information I should know about ondansetron? You should not use ondansetron if you are also using apomorphine (Apokyn). What is ondansetron? Ondansetron blocks the actions of chemicals in the body that can trigger nausea and vomiting. Ondansetron is used to prevent nausea and vomiting that may be caused by surgery, cancer chemotherapy, or radiation treatment. Ondansetron may be used for purposes not listed in this medication guide. What should I discuss with my health care provider before taking ondansetron? You should not use ondansetron if: you are also using apomorphine (Apokyn); or you are allergic to ondansetron or similar medicines (dolasetron, granisetron, palonosetron). To make sure ondansetron is safe for you, tell your doctor if you have: liver disease; an electrolyte imbalance (such as low levels of potassium or magnesium in your blood); congestive heart failure, slow heartbeats; a personal or family history of long QT syndrome; or a blockage in your digestive tract (stomach or intestines). Ondansetron is not expected to harm an unborn baby. Tell your doctor if you are . It is not known whether ondansetron passes into breast milk or if it could harm a nursing baby. Tell your doctor if you are breast-feeding a baby. Ondansetron is not approved for use by anyone younger than 4 years old. Ondansetron orally disintegrating tablets may contain phenylalanine. Tell your doctor if you have phenylketonuria (PKU). How should I take ondansetron? Follow all directions on your prescription label. Do not take this medicine in larger or smaller amounts or for longer than recommended. Ondansetron can be taken with or without food. The first dose of ondansetron is usually taken before the start of your surgery, chemotherapy, or radiation treatment. Follow your doctor's dosing instructions very carefully. Take the ondansetron regular tablet with a full glass of water. To take the orally disintegrating tablet (Zofran ODT): Keep the tablet in its blister pack until you are ready to take it. Open the package and peel back the foil. Do not push a tablet through the foil or you may damage the tablet. Use dry hands to remove the tablet and place it in your mouth. Do not swallow the tablet whole. Allow it to dissolve in your mouth without chewing. Swallow several times as the tablet dissolves. To use ondansetron oral soluble film (strip) (Zuplenz): Keep the strip in the foil pouch until you are ready to use the medicine. Using dry hands, remove the strip and place it on your tongue. It will begin to dissolve right away. Do not swallow the strip whole. Allow it to dissolve in your mouth without chewing. Swallow several times after the strip dissolves. If desired, you may drink liquid to help swallow the dissolved strip. Wash your hands after using Zuplenz. Measure liquid medicine with the dosing syringe provided, or with a special dose-measuring spoon ormedicine cup. If you do not have a dose-measuring device, ask your pharmacist for one. Store at room temperature away from moisture, heat, and light. Store liquid medicine in an upright position. What happens if I miss a dose? Take the missed dose as soon as you remember. Skip the missed dose if it is almost time for your next scheduled dose. Do not take extra medicine to make up the missed dose. What happens if I overdose? Seek emergency medical attention or call the Poison Help line at . Overdose symptoms may include sudden loss of vision, severe constipation, feeling light-headed, or fainting. What should I avoid while taking ondansetron? Ondansetron may impair your thinking or reactions. Be careful if you drive or do anything that requires you to be alert. What are the possible side effects of ondansetron? Get emergency medical help if you have signs of an allergic reaction: rash, hives; fever, chills, difficult breathing; swelling of your face, lips, tongue, or throat. Call your doctor at once if you have: severe constipation, stomach pain, or bloating; headache with chest pain and severe dizziness, fainting, fast or pounding heartbeats; fast or pounding heartbeats; jaundice (yellowing of the skin or eyes); blurred vision or temporary vision loss (lasting from only a few minutes to several hours); high levels of serotonin in the body--agitation, hallucinations, fever, fast heart rate, overactivereflexes, nausea, vomiting, diarrhea, loss of coordination, fainting. Common side effects may include: diarrhea or constipation; headache; drowsiness; or tired feeling. This is not a complete list of side effects and others may occur. Call your doctor for medical advice about side effects. You may report side effects to FDA at 3-006-IDC-0563. What other drugs will affect ondansetron? Ondansetron can cause a serious heart problem, especially if you use certain medicines at the same time, including antibiotics, antidepressants, heart rhythm medicine, antipsychotic medicines, and medicines to treat cancer, malaria, HIV or AIDS. Tell your doctor about all medicines you use, and those you start or stop using during your treatment with ondansetron. Taking ondansetron while you are using certain other medicines can cause high levels of serotonin to build up in your body, a condition called 'serotonin syndrome,' which can be fatal. Tell your doctor if you also use: medicine to treat depression; medicine to treat a psychiatric disorder; a narcotic (opioid) medication; or medicine to prevent nausea and vomiting. This list is not complete and many other drugs can interact with ondansetron. This includes prescription and kvum-pbz-edsbkwj medicines, vitamins, and herbal products. Give a list of all your medicines to any healthcare provider who treats you. Where can I get more information? Your pharmacist can provide more information about ondansetron. Remember, keep this and all other medicines out of the reach of children, never share your medicines with others, and use this medication only for the indication prescribed. Every effort has been made to ensure that the information provided by [employer]') is accurate, up-to-date, and complete, but no guarantee is made to that effect. Drug information contained herein may be time sensitive. [employer] information has been compiled for use by healthcare practitioners and consumers in the [place] and therefore [employer] does not warrant that uses outside of the [place] are appropriate, unless specifically indicated otherwise. [employer] drug information does not endorse drugs, diagnose patients or recommend therapy. [employer] drug information isan informational resource designed to assist licensed healthcare practitioners in caring for their p atients and/or to serve consumers viewing this service as a supplement to, and not a substitute for, the expertise, skill, knowledge and judgment of healthcare practitioners. The absence of a warningfor a given drug or drug combination in no way should be construed to indicate that the drug or drug combination is safe, effective or appropriate for any given patient. [employer] does not assume any responsibility for any aspect of healthcare administered with the aid of information [employer] provides. The information contained herein is not intended to cover all possible uses, directions, precautions, warnings, drug interactions, allergic reactions, or adverse effects. If you have questions about the drugs you are taking, check with your doctor, nurse or pharmacist. Copyright 6259-1257 [facility] Version: 16.01. Revision Date: 11/22/2022. Education Materials Kidney Stone with Pain The sharp cramping pain on either side of your lower back and nausea/vomiting that you have are because of a small stone that has formed in the kidney. It is now passing down a narrow tube (ureter) on its way to your bladder. Once the stone reaches your bladder, the pain will often stop. But it maycome back as the stone continues to pass out of the bladder and through the urethra. The stone may pass in your urine stream in one piece. The size may be 1/16 inch to 1/4 inch (1 mm to 6 mm). Or, the stone may break up into minesh fragments that you may not even notice. Once you have had a kidney stone, you are at risk of getting another one in the future. There are 4types of kidney stones. Eighty percent are calcium stones mostly calcium oxalate but also some withcalcium phosphate. The other 3 types include uric acid stones, struvite stones (from a preceding infection), and rarely, cystine stones. Most stones will pass on their own, but may take from a few hours to a few days. Sometimes the stone is too large to pass by itself. In that case, the healthcare provider will need to use other ways to remove the stone. These techniques include: Lithotripsy. This uses ultrasound waves to break up the stone. Ureteroscopy. This pushes a basket-like instrument through the urethra and bladder and into the ureter to pull out the stone. Various types of direct surgery through the skin Home care The following are general care guidelines: Drink plenty of fluids. This means at least 12, 8-ounce glasses of fluid mostly water a day. Each time you urinate, do so in a jar. Pour the urine from the jar through the strainer and into the toilet. Continue doing this until 24 hours after your pain stops. By then, if there was a kidney stone, it should pass from your bladder. Some stones dissolve into sand-like particles and pass rightthrough the strainer. In that case, you won t ever see a stone. Save any stone that you find in the strainer and bring it to your healthcare provider to look at. It may be possible to stop certain types of stones from forming. For this reason, it is important to know what kind of stone you have. Try to stay as active as possible. This will help the stone pass. Don't stay in bed unless your pain keeps you from getting up. You may notice a red, pink, or brown color to your urine. This is normal while passing a kidney stone. If you develop pain, you may take ibuprofen or naproxen for pain, unless another medicine was prescribed. If you have chronic liver or kidney disease, talk with your healthcare provider before takingthese medicines. Also talk with your provider if you've had a stomach ulcer or GI bleeding. Preventing stones Each year for the next 5 to 7 years, you are at risk that a new stone will form. Your risk is a 50%chance over this time period. The risk is higher if you have a family history of kidney stones or have certain chronic illnesses like hypertension, obesity, or diabetes. But you can make changes to your lifestyle and diet that can lower your risk for another stone. Most kidney stones are made of calcium. The following is advice for preventing another calcium stone. If you don t know the type of stone you have, follow this advice until the cause of your stone isfound. Things that help: The most important thing you can do is to drink plenty of fluids each day. See home care above. Eat foods that contain phytates. These include wheat, rice, rye, barley, and beans. Phytates are substances that may lower your risk for any type of stone to form. Eat more fruits and vegetables. Choose those that are high in potassium. Eat foods high in natural citrate like fruit and low-sugar fruit juices. Having too little calcium in your diet can put you at risk for calcium kidney stones. Eat a normal amount of calcium in your diet and talk with your healthcare provider if you are taking calcium supplements. Cutting back on your calcium intake may raise your risk. New research shows that eating calcium-rich and oxalate-rich foods together lowers your risk for stones by binding the minerals in thestomach and intestines before they can reach the kidneys. Limit salt intake to 2 grams (1 teaspoon) per day. Use limited amounts when cooking, and don t add salt at the table. Processed and canned foods are usually high in salt. Spinach, rhubarb, peanuts, cashews, almonds, grapefruit, and grapefruit juice are all high oxalate foods. You should limit how much of these you eat. Or eat them with calcium-rich foods. These include dairy products, dark leafy greens, soy products, and calcium-enriched foods. Reducing the amount of animal meat and high protein foods in your diet may lower your risk for uricacid stones. Avoid excess sugar (sucrose) and fructose (sweetener in many soft drinks) in your diet. If you take vitamin C as a supplement, don't take more than 1,000 mg a day. A dietitian or your healthcare provider can give you information about changes in your diet that will help prevent more kidney stones from forming. Follow-up care Follow up with your healthcare provider, or as advised, if the pain lasts more than 48 hours. Talk with your provider about urine and blood tests to find out the cause of your stone. If you had an X-ray, CT scan, or other diagnostic test, you will be told of any new findings that may affect your care. Call 911 Call 911 if you have any of these: Weakness, dizziness, or fainting When to seek medical advice Call your healthcare provider right away if any of these occur: Pain that is not controlled by the medicine given Repeated vomiting or unable to keep down fluids Fever of 100.4 F (38 C) or higher, or as directed by your healthcare provider Passage of solid red or brown urine (can't see through it) or urine with lots of blood clots Foul-smelling or cloudy urine Unable to pass urine for 8 hours and increasing bladder pressure [id number] [employer]. [address] [place] [address], [place] [address]. All rights reserved. This information is not intended as a substitute for professional medical care. Always follow yourhealthcare professional's instructions. Additional Information VACCINATE! IT SAVES LIVES! Members of the community who have not yet received the COVID-19 vaccine and would like to receive it can visit one of [facility] vaccine clinics. There are many vaccine clinic locations within the [facility]. For locations and available times, please visit www.gettheshot.coronavirus.[place].gov/. It is important to note that some COVID mobile vaccine clinics are held outdoors and may be canceled in rainy or stormy conditions. To learn more about pediatric vaccinations (ages 5-11), we invite you to visit the [facility] webpage. [email or web address]/[email or web address] [email or web address] learn more about the COVID-19 vaccine, we invite you to visit the CDC website for a list of frequently asked questions. https://www.cdc.gov/coronavirus/2019-ncov/vaccines/faq.html [facility] Patient Portal Access Instructions: Stay connected with your healthcare team and access your personal medical information anytime with the [facility] Patient Portal. If you would like a full copy of your medical records please contact the [facility] Medical Records Department Saturday through Saturday between 8a.m. and 4:30p.m. Please follow the directions below to access the portal: 1.Access the email account you provided upon registration to the hospital.2.Look for an invitation email from [facility].3.Open the email and access the invitation link: Accept Invitation to [facility]4.Fill in the required lockwood to create your account. Sign into www.[employer] with your username and password that you created in the above steps to stay up to date. You can then view a summary of results, a summary of your visits, and the ability to download your summaries to your computer or send the information securely to a physician. Remember that your healthcare information is confidential, so carefully consider who you will allow to register on the [employer] Patient Portal for access to your information. You can also access the [employer] Patient Portal on the [employer]. Simply click on Health Records under [employer] and then click on the [employer] logo. HOW TO SAFELY DISPOSE OF PRESCRIPTION MEDICATIONS Please use one of the following methods to safely dispose of your unused medications. 1.Use a drug disposal kit: the drug disposal pouch allows you to safely discard your old and unuseddrugs. Ask your nurse to give you one when you are discharged.2.Visit a local take-back location: Many local pharmacies and police departments have programs that collect old and unwanted prescriptiondrugs. Call your local pharmacy or go to http://[employer].SPIRIT Navigation/6S9Yk8k to find one close to you.3.Make use of household items: Use cat litter or old coffee grounds to dispose medications if other options arenot available. Mix your drugs with these household products, seal them in an airtight container andthrow it into the garbage. Call [facility]: [phone] to be sure your drugs can be disposed of in this way. Some medicines may require a different approach.4.Never flush your medications down the toilet. IF YOU HAVE BEEN PRESCRIBED AN OPIOIDS FOR PAIN If you have been prescribed an opioid (such as hydrocodone, oxycodone or morphine), it is critical to understand the possible side effects and risks of opioid pain medications. Even when taken as directed, opioids can have several side effects including: Tolerance, meaning you might need to take more of a medication for the same pain relief. Nausea, vomiting and/or constipation. Sleepiness, dizziness, dry mouth, confusion, depression or itching. Physical dependence, meaning you have withdrawal symptoms when a medication is stopped ? this can develop within a few days. KNOW YOUR RESPONSIBILITIES It is important to know exactly how much and how often to take the opioid pain medications you are prescribed. Never take opioids in higher amounts or more often than prescribed. Do not combine opioids with alcohol or other drugs that cause drowsiness, such as benzodiazepines, also known as benzos,including diazepam and alprazolam, muscle relaxants or sleep aids. Never sell or share prescriptionopioids. This is illegal. Store opioids in a secure place and out of reach of others (including children, family, friends and visitors). The last page(s) of this document has been signed and retained as a CHART COPY Signatures Patient Education Materials Kidney Stone w/ Colic Medication Leaflets naproxen, tamsulosin, ondansetron (oral) My discharge plan and instructions have been reviewed and explained to me and IPATRICIA HAROLD A understand my current condition and have read and understand these discharge instructions. I have received a written copy of the plan/instructions. If I have questions, I am aware that I should contact my doctor. Patient/Production Support Developer Signature: Date/Time: Relationship to Patient: Witness Name/Signature: Date/Time: [facility]09-16-2023 Note ORIGINAL EXAMINATION: CT OF THE ABDOMEN AND PELVIS WITH CONTRAST 01/05/2023 2:27 am TECHNIQUE: CT of the abdomen and pelvis was performed with the administration of intravenous contrast. Multiplanar reformatted images are provided for review. Automated exposure control, iterative reconstruction, and/or weight based adjustment of the mA/kV was utilized to reduce the radiation dose to as low as reasonably achievable. COMPARISON: None. HISTORY: ORDERING SYSTEM PROVIDED HISTORY: Reason for Exam: Left flank pain FINDINGS: There is bilateral lower lobe atelectasis. Coronary artery calcifications. The liver, gallbladder, spleen, adrenal glands, pancreas, and right kidney are within normal limits. There is left renal delayed nephrogram and mild left hydroureteronephrosis secondary to a 3 mm stone at distal ureter just proximal to the left UVJ. The bladder is under distended but appears grossly unremarkable. The prostate gland is nonenlarged. Bilateral small fat containing inguinal hernias. No free fluid in the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
--- NOTE | 2024-10-17 08:29 | EX.ED.DYSGE1 ---
HPI History of Present Illness Chief Complaint: Hypoglycemia Informant: patient Onset/Context/Timing Onset: Today Context: Gradual Onset Timing: Continuous Quality: Nausea Location: Generalized Worsened by: Nothing Relieved by: Nothing Narrative Narrative: Patient presents with possible hypoglycemic episode that occurred today. Patient gave himself his insulin injection this morning around 1 AM but thought it misfired. Patient gave himself a second injection. Patient's blood sugar at home was 84. Patient called EMS and was brought to the emergency department. Patient denies any lightheadedness or dizziness. Patient admits to occasional shortness of breath. Patient admits to some nausea but denies any vomiting. Patient denies any chest pain. [facility] Medical History Hip fracture Screening for prostate cancer Obstructive sleep apnea Knee sprain Hypertension complicating diabetes Hyperlipidemia associated with type 2 diabetes mellitus Diabetes mellitus with multiple complications Healing wound Wound, open, buttock Morbid obesity Hyperlipidemia Supraventricular tachycardia Abscess of head Lumbar radiculopathy Low back pain Osteoarthritis of right knee Right knee pain MRSA (methicillin resistant staph aureus) culture positive Abscess of left thigh Abscess COVID-19 SVT (supraventricular tachycardia) Type 2 diabetes mellitus Anxiety and depression RANCHO on CPAP Essential hypertension Anxiety Diabetes Hypothyroidism Home Medications ?Medication ?Instructions ?Recorded ?Last Taken ?Type metformin 500 mg tablet 1,000 mg PO BID 07/25/20 Unknown History paroxetine HCl 40 mg tablet 40 mg PO DAILY 07/25/20 Unknown History multivitamin 1 cap DAILY 09/27/20 Unknown History buspirone 10 mg tablet 10 mg PO BID 03/09/24 Unknown History levothyroxine 300 mcg tablet 300 mcg PO QDAY 03/09/24 Unknown History albuterol sulfate 90 mcg/actuation 1 inh inhalation Q4H 10/07/24 Unknown History breath activated powder inhaler,sensor (Proair Digihaler) atorvastatin 40 mg tablet (Lipitor) 40 mg PO QDAY 10/07/24 Unknown History glimepiride 1 mg tablet 1 mg PO QDAY 10/07/24 Unknown History insulin detemir U-100 100 unit/mL 30 unit subcut QHS 10/07/24 Unknown History (3 mL) subcutaneous pen metoprolol succinate 100 mg 100 mg PO QDAY 10/07/24 Unknown History tablet,extended release 24 hr pen needle, diabetic 32 gauge x #1,200 ea 10/07/24 Unknown History Allergy/AdvReac Type Severity Reaction Status Date / Time escitalopram (From Lexapro) AdvReac Rash Verified 10/17/24 07:31 Family History Father Hypertension Mother Myocardial infarction Diabetes Hypertension Sister Diabetes Surgical History History of hip surgery Social History household members: none Smoking Status: Never smoker alcohol intake: never substance use type: does not use caffeine: Yes Type: carbonated beverages Number of servings: 1 and tea Number of servings: 3 ROS ROS ED Constitutional Constitutional ED: Reports chills and subjective; Denies fever(s) Eyes Eyes: Denies blurry vision or change in vision ENT ENT ED: Denies rhinorrhea or sore throat Cardiovascular Cardiovascular: Denies chest pain or palpitations Respiratory/Chest Respiratory/Chest: Reports dyspnea; Denies cough Gastrointestinal Gastrointestinal: Reports nausea; Denies vomiting Genitourinary Genitourinary ED: Denies dysuria or hematuria Musculoskeletal Musculoskeletal: Denies back pain or neck pain Integumentary Denies abscess or rash Neurologic Neurologic: Denies headache(s) or weakness Allergic/Immunologic Allergic/Immunologic ED: Denies mouth swelling or urticaria EXAM Physical Exam Const Vital Signs: 10/17/24 07:31 10/17/24 07:35 Temperature 97.7 F L Temperature Source Temporal Pulse Rate 88 Respiratory Rate 20 H Respiratory Effort Labored Blood Pressure 166/95 H Blood Pressure Mean 118 Pulse Ox 99 Oxygen Delivery Method Room Air Positive well nourished and well developed General Appearance ED: well developed and NAD HEENT Reports moist mucous membranes Neck supple and no JVD Resp normal respiratory effort and clear to auscultation bilaterally Cardio regular rate and regular rhythm GI non-tender and non-distended Palpation: soft Neuro oriented x3, CN's II-XII intact bilaterally and no sensory deficits noted Sensorium / Orientation: alert Motor Exam: strength 5/5 throughout Psych mental status grossly normal MDM MDM MDM Narrative Medical decision making narrative: Differential diagnosis includes hypoglycemia, electrolyte abnormality, and dehydration. CBC will be obtained to assess for leukocytosis and anemia. Basic metabolic profile will be obtained to assess for hyperglycemia, electrolyte abnormality, and renal function. Lab Data Lab results narrative: CBC was reviewed. There is a slight leukocytosis of 13.8. The remainder is within normal limits. Basic metabolic profile was reviewed. Glucose was 149. BUN was slightly elevated at 20. The remainder is within normal limits. Treatment and Re-Evaluation :: Patient was given regular diet. Patient was feeling better on reevaluation. Patient ambulated in the emergency department without difficulty. Patient was instructed to continue his insulin as prescribed. Patient was instructed to follow-up with his primary care physician in 5 to 7 days. Patient understood and was agreeable with the plan. All questions were answered. Discharge Plan Triage Chief Complaint: Hypoglycemia ED Provider: Davidson Schulz Dx/Rx/DC Orders Clinical Impression: Hypoglycemia, Essential hypertension, Type 2 diabetes mellitus Instructions: ED Diabetic Insulin Reaction Prescriptions: No Action levothyroxine 300 mcg tablet 300 mcg PO QDAY buspirone 10 mg tablet 10 mg PO BID Proair Digihaler 90 mcg/actuation aero powdr breath act w/sensor 1 inh inhalation Q4H atorvastatin [Lipitor] 40 mg tablet 40 mg PO QDAY glimepiride 1 mg tablet 1 mg PO QDAY (DME) pen needle, diabetic 32 gauge x 5/32 needle See Rx Instructions .ROUTE DIRECTED Qty: 1200 Rx Instructions: As directed insulin detemir U-100 100 unit/mL (3 mL) insulin pen 30 unit subcut QHS metoprolol succinate 100 mg tablet extended release 24 hr 100 mg PO QDAY metformin 500 MG tablet 1,000 mg PO BID paroxetine HCl 40 MG tablet 40 mg PO DAILY multivitamin Capsule 1 cap DAILY Primary Care Provider: Foster Reyes Referrals: Foster Reyes MD [Primary Care Provider] - 5-7 Days Print Language: Swedish Disposition Disposition: Home, Self Care
[2024-10-17 08:45] VITALS: PULSE 94; RESP 16; O2SAT 98
[2024-10-17 09:00] VITALS: PULSE 94; RESP 20; O2SAT 97
[2024-10-17 09:03] LABS: Absolute Lymphocyte Count 0.96 X10^3/uL (0.83-4.51); Absolute Neutrophil Count 11.9 X10^3/uL (2.0-7.7); Basophil# 0.06 X10^3/uL; Basophil% 0.4 % (0-1); Eosinophil# 0.27 X10^3/uL; Hematocrit 44.3 % (40-54); Hemoglobin 14.4 g/dL (13.0-16.5); Lymphocyte # 0.96 X10^3/ul (0.83-4.51); Lymphocyte % 6.9 % (19-41); Mean Corp Hgb Conc 32.5 g/dL (32-36); Mean Corpuscular Hgb 29.8 pg (27.0-32.0); Mean Corpuscular Volume 91.7 fL (80-94); Mean Platelet Vol. 11.4 fl (6.2-12.0); Monocyte# 0.64 X10^3/uL; Monocyte% 4.6 % (0-10); NRBC Flagged by Analyzer 0 % (0-5); Neutrophil # 11.87 X10^3/uL (2.7-7.7); Neutrophil % 85.8 % (47-70); Platelet Count 256 K/mm3 (150-450); RBC Distribution Width CV 12.6 % (11.6-14.6); RBC Distribution Width SD 42.4 fl (35.1-43.9); Red Blood Count 4.83 M/mm3 (4.6-6.2); White Blood Count 13.8 K/mm3 (4.4-11.0)
[2024-10-17 09:21] LABS: Anion Gap 14 (5-15); BUN 20 mg/dL (4-19); BUN/Creat Ratio 22.9 RATIO (10-20); Calcium,Total 9.4 mg/dL (7.6-11.0); Carbon Dioxide 21.7 mmol/L (21.0-32.0); Chloride 103 mmol/L (98-108); Creatinine, Serum 0.88 mg/dL (0.70-1.20); EST Glomerular Filtration Rate 100 (>60); Estimated Creatinine Clearance 144.94 ml/min (50-250); Glucose 149 mg/dL (70-99); Potassium 4.6 mmol/L (3.3-5.1); Sodium Level 138 mmol/L (133-145)
[2024-10-17 10:37] VITALS: BP 124/70; PULSE 93; RESP 25; TEMP 36.5; O2SAT 97
== END 2024-10-17 10:39 | disposition home or self-care (01) ==
PROVIDERS: Emergency Provider Emergency Medicine; PCP Family Medicine; Visit Provider Emergency Medicine
DX: E11.649 Type 2 diabetes mellitus with hypoglycemia without coma (principal); Z79.4 Long term (current) use of insulin; I10 Essential (primary) hypertension; E78.5 Hyperlipidemia, unspecified; G47.33 Obstructive sleep apnea (adult) (pediatric); Z99.89 Dependence on other enabling machines and devices; Z79.84 Long term (current) use of oral hypoglycemic drugs; F41.8 Other specified anxiety disorders; Z79.899 Other long term (current) drug therapy; E03.9 Hypothyroidism, unspecified
CPT/HCPCS: 80048; 85025; 99285; A4216

== ENCOUNTER → 2025-01-06 | Outpatient (CLI) | payer MEDICARE, MEDICAID, SELFPAY ==
[2025-01-06 16:40] LABS: Mucous, Urine 0 SEEN /hpf (<or=2+)
[2025-01-06 18:00] LABS: Hematocrit 44.3 % (40-54); Hemoglobin 14.5 g/dL (13.0-16.5); Immature Granulocytes Count 0.040 X10^3/uL (0.0-0.0); Mean Corp Hgb Conc 32.7 g/dL (32-36); Mean Corpuscular Volume 90.2 fL (80-94); Mean Platelet Vol. 10.9 fl (6.2-12.0); NRBC Flagged by Analyzer 0 % (0-5); Platelet Count 337 K/mm3 (150-450); RBC Distribution Width CV 13.3 % (11.6-14.6); RBC Distribution Width SD 43.5 fl (35.1-43.9); Red Blood Count 4.91 M/mm3 (4.6-6.2); White Blood Count 10.3 K/mm3 (4.4-11.0)
[2025-01-06 18:44] LABS: Creatinine, Urine (random) 141.00 mg/dL (39.00-259.00); Microalbumin,Random Urine < 12.0 mg/L (<20 mg/L)
[2025-01-06 18:48] LABS: AST(SGOT) 26 U/L (<=37); Alanine Aminotransfer ALT/SGPT 20 U/L (<=46); Albumin, Serum 4.1 g/dL (3.5-5.0); Alkaline Phosphatase 117 U/L (40-129); Anion Gap 14 (5-15); BUN 15 mg/dL (4-19); BUN/Creat Ratio 15.9 RATIO (10-20); Calcium,Total 9.8 mg/dL (7.6-11.0); Carbon Dioxide 21.7 mmol/L (21.0-32.0); Chloride 104 mmol/L (98-108); Cholesterol 174 mg/dL (<=200); Globulin 3.3 g/dL (2.2-4.2); Glucose 124 mg/dL (70-99); Low Density Lipoprotein Calc. 76 mg/dL; Magnesium 2.2 mg/dL (1.5-2.2); Potassium 4.8 mmol/L (3.3-5.1); Triglycerides 206 mg/dL; Very Low Density Lipoprotein 41 mg/dL (5-40); cholesterol:hdl ratio screen 3.05
[2025-01-06 18:55] LABS: Color, Urine Yellow (Yellow); Glucose, Dipstick Normal (Normal); Ketone-Dipstick Negative (Negative); Leukocyte Esterase-Dipstick Negative /ul (Negative); Nitrite-Dipstick Negative (Negative); Occult Blood-Urine Negative /ul (Negative); Protein-Dipstick 15 mg/dl (Negative); Specific Gravity, Urine 1.020 (1.002-1.030); Urine Bilirubin Dipstick Negative (Negative)
[2025-01-06 19:36] LABS: Red Blood Cells-Urine 0-5 SEEN /hpf (0-5); Squamous Epithelial Cells - UA 0-5 SEEN /hpf (0-5)
== END | disposition home or self-care (01) ==
LOC: MTLAB 16:35
PROVIDERS: PCP Family Medicine; Referring Provider Family Medicine; Visit Provider Family Medicine
DX: E03.9 Hypothyroidism, unspecified (principal); E11.69 Type 2 diabetes mellitus with other specified complication; I47.10 Supraventricular tachycardia, unspecified
CPT/HCPCS: 36415; 80053; 80061; 81001; 82043; 82570; 83036; 83735; 84439; 84443; 85025

== ENCOUNTER 2025-02-09 17:42 | Emergency (ER) | payer MEDICARE, MEDICAID, SELFPAY ==
[2025-02-09 17:44] VITALS: BP 98/58; PULSE 75; RESP 18; TEMP 35.5; O2SAT 97
[2025-02-09 18:38] VITALS: BP 112/71
--- NOTE | 2025-02-09 18:59 | EDS_ITS ---
HPI History of Present Illness Chief Complaint: Upper Extremity Injury Narrative Narrative: Chief complaint and HPI: 59-year-old male with past medical history of osteoarthritis, DM, HTN, HLD presents for evaluation of intermittent right arm and right leg pain. Patient states symptoms have been ongoing for several months. Pain worsens mostly when helping pull girlfriend up out of bed or lifting something heavy. Describes it as a soreness. Denies any weakness numbness or tingling. Denies any trauma. Has an appointment with primary care physician soon. Denies any fever, chills, shortness of breath, chest pain abdominal pain, nausea, vomiting. Review of systems: See HPI Medications: As listed on the chart Allergies: As listed on the chart PFSH: Per chart Vital signs: As listed on the chart. Reviewed. Physical exam: Gen: A&O x3, NAD Head: Normocephalic, atraumatic Eyes: No sclera icterus, conjunctiva clear ENT: Moist mucous membranes Neck: Trachea midline, full range of motion, nontender CV: RRR, no murmurs, no peripheral edema Resp: Lungs CTA BL, no w/r/c Musc: Full ROM, no deformity, no swollen/erythematous/warm joints, no cellulitis, radial/DP/PT pulses +2 bilaterally, compartments soft, good capillary refill, no midline spinal tenderness, no bony step-offs, no paraspinal muscular tenderness, strength +5/5 in all extremities Skin: Warm, dry Neuro: Alert, oriented, grossly intact, sensation intact Psych: Cooperative, appropriate mood and affect [facility] Medical History Hip fracture Screening for prostate cancer Obstructive sleep apnea Knee sprain Hypertension complicating diabetes Hyperlipidemia associated with type 2 diabetes mellitus Diabetes mellitus with multiple complications Healing wound Wound, open, buttock Morbid obesity Hyperlipidemia Supraventricular tachycardia Abscess of head Lumbar radiculopathy Low back pain Osteoarthritis of right knee Right knee pain MRSA (methicillin resistant staph aureus) culture positive Abscess of left thigh Abscess COVID-19 SVT (supraventricular tachycardia) Type 2 diabetes mellitus Anxiety and depression RANCHO on CPAP Essential hypertension Anxiety Diabetes Hypothyroidism Home Medications ?Medication ?Instructions ?Recorded ?Last Taken ?Type metformin 500 mg tablet 1,000 mg PO BID 07/25/20 Unk nown History paroxetine HCl 40 mg tablet 40 mg PO DAILY 07/25/20 Un known History multivitamin 1 cap DAILY 09/27/20 Unknown History buspirone 10 mg tablet 10 mg PO BID 03/09/24 Unknow n History levothyroxine 300 mcg tablet 300 mcg PO QDAY 03/09/24 Unknown History atorvastatin 40 mg tablet (Lipitor) 40 mg PO QDAY 09/20 12/14 Unknown History glimepiride 1 mg tablet 1 mg PO QDAY 10/07/24 Unknow n History insulin detemir U-100 100 unit/mL 30 unit subcut QHS 0 10/07/24 Unknown History (3 mL) subcutaneous pen metoprolol succinate 100 mg 100 mg PO QDAY 10/07/24 Un known History tablet,extended release 24 hr pen needle, diabetic 32 gauge x #1,200 ea 10/07/24 Unk nown History Allergy/AdvReac Type Severity Reaction Status Date / Time escitalopram (From Lexapro) AdvReac Rash Verified 02/09/25 17:44 Family History Father Hypertension Mother Myocardial infarction Diabetes Hypertension Sister Diabetes Surgical History History of hip surgery Social History household members: none Smoking Status: Never smoker alcohol intake: never substance use type: does not use caffeine: Yes Type: carbonated beverages Number of servings: 1 and tea Number of servings: 3 EXAM Physical Exam Const Vital Signs: 02/09/25 17:44 02/09/25 18:38 Temperature 96 F L Temperature Source Temporal Pulse Rate 75 Respiratory Rate 18 Blood Pressure 98/58 L 112/71 Blood Pressure Mean 71 84 Pulse Ox 97 Oxygen Delivery Method Room Air MDM MDM MDM Narrative Medical decision making narrative: 59-year-old male with past medical history of osteoarthritis, DM, HTN, HLD presents for evaluation of intermittent right arm and right leg pain. Patient states symptoms have been ongoing for several months. Pain worsens mostly when helping pull girlfriend up out of bed or lifting something heavy. Describes it as a soreness. Denies any weakness numbness or tingling. Denies any trauma. Has an appointment with primary care physician soon. See physical exam finding. Physical exam unremarkable. Suspect patient's intermittent muscle soreness is secondary to spasm versus overuse injury. Recommend Tylenol and Motrin as needed for pain. Muscle relaxers as needed for spasm. Follow-up with primary care physician. Return precautions explained. I do not think any imaging or laboratory workup is needed at this time. Impression: 1. Intermittent right upper extremity pain 2. Intermittent right lower extremity pain Discharge Plan Triage Chief Complaint: Upper Extremity Injury Other Complaint: Lower Extremity Injury ED Provider: Rex Resendez Dx/Rx/DC Orders Clinical Impression: Muscle soreness Instructions: Medicine for Pain Prescriptions: No Action levothyroxine 300 mcg tablet 300 mcg PO QDAY buspirone 10 mg tablet 10 mg PO BID atorvastatin [Lipitor] 40 mg tablet 40 mg PO QDAY glimepiride 1 mg tablet 1 mg PO QDAY (DME) pen needle, diabetic 32 gauge x 5/32 needle See Rx Instructions .ROUTE DIRECTED Qty: 1200 Rx Instructions: As directed insulin detemir U-100 100 unit/mL (3 mL) insulin pen 30 unit subcut QHS metoprolol succinate 100 mg tablet extended release 24 hr 100 mg PO QDAY metformin 500 MG tablet 1,000 mg PO BID paroxetine HCl 40 MG tablet 40 mg PO DAILY multivitamin Capsule 1 cap DAILY Primary Care Provider: Foster Reyes Referrals: Foster Reyes MD [Primary Care Provider, Family Practice] Activity Restrictions/Additional Instructions: Follow-up with your primary care physician. Tylenol and Motrin as needed for pain. Recommend IcyHot. Return back to ED if symptoms change or worsen. Print Language: Georgian Disposition Disposition: Home, Self Care Discharge Date/Time: 02/09/25 19:06
[2025-02-09 19:02] VITALS: BP 112/71; PULSE 75; RESP 18; TEMP 35.5; O2SAT 97
--- OUTSIDE RECORDS SUMMARY | 2025-02-09 19:05 | XMS RPT_ITS | CCD ---
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 ####[facility] [address] [place], [address] Basophils/100 WBC (Bld) 1.0 % Normal 0-1 [facility] Comment on above: Order Comment: Order Date: 01/06/25Order Info: 0184-1 - CBCD Performed By: #### L 501.9520, L100.0100, L501.5200, L500.4100, L500.4050, L506.0400, L501.9985 ####[facility] [address] [place], [address] Eosinophils/100 WBC (Bld) 2.6 % Normal 0-5 [facility] Comment on above: Order Comment: Order Date: 01/06/25Order Info: 0184-1 - CBCD Performed By: #### L 501.9520, L100.0100, L501.5200, L500.4100, L500.4050, L506.0400, L501.9985 ####[facility] [address] [place], [address] Erythrocyte distribution width (RBC) [Ratio] 13.3 % Normal 11.6-14.6 [facility] Comment on above: Order Comment: Order Date: 01/06/25Order Info: 0184-1 - CBCD Performed By: #### L 501.9520, L100.0100, L501.5200, L500.4100, L500.4050, L506.0400, L501.9985 ####[facility] [address] [place], [address] Hematocrit (Bld) [Volume fraction] 44.3 % Normal 40-54 [facility] Comment on above: Order Comment: Order Date: 01/06/25Order Info: 0184-1 - CBCD Performed By: #### L 501.9520, L100.0100, L501.5200, L500.4100, L500.4050, L506.0400, L501.9985 ####[facility] [address] [place], [address] Hemoglobin (Bld) [Mass/Vol] 14.5 g/dL Normal 13.0-16.5 [facility] Comment on above: Order Comment: Order Date: 01/06/25Order Info: 0184-1 - CBCD Performed By: #### L 501.9520, L100.0100, L501.5200, L500.4100, L500.4050, L506.0400, L501.9985 ####[facility] [address], [address] IG% 0.400 Normal 0.0-0.9 [facility] Comment on above: Order Comment: Order Date: 01/06/25Order Info: 0184-1 - CBCD Result Comment: IG% - Immature Granulocytes (promyelocytes, myelocytes and metamyelocytes) > 1% indicates that a LEFT SHIFT is Present. Performed By: #### L 501.9520, L100.0100, L501.5200, L500.4100, L500.4050, L506.0400, L501.9985 ####[facility] [address] [place], [address] Lymphocytes/100 WBC (Bld) 23.9 % Normal 19-41 [facility] Comment on above: Order Comment: Order Date: 01/06/25Order Info: 018- - CBCD Performed By: #### L 501.9520, L100.0100, L501.5200, L500.4100, L500.4050, L506.0400, L501.9985 ####[facility] [address] [place], [address] MCH (RBC) [Entitic mass] 29.5 pg Normal 27.0-32.0 [facility] Comment on above: Order Comment: Order Date: 01/06/25Order Info: 018- - CBCD Performed By: #### L 501.9520, L100.0100, L501.5200, L500.4100, L500.4050, L506.0400, L501.9985 ####[facility] [address] [place], [address] MCHC (RBC) [Mass/Vol] 32.7 g/dL Normal 32-36 [facility] Comment on above: Order Comment: Order Date: 01/06/25Order Info: 018- - CBCD Performed By: #### L 501.9520, L100.0100, L501.5200, L500.4100, L500.4050, L506.0400, L501.9985 ####[facility] [address] [place], [address] MCV (RBC) [Entitic vol] 90.2 fL Normal 80-94 [facility] Comment on above: Order Comment: Order Date: 01/06/25Order Info: 018- - CBCD Performed By: #### L 501.9520, L100.0100, L501.5200, L500.4100, L500.4050, L506.0400, L501.9985 ####[facility] [address] [place], [address] Monocytes/100 WBC (Bld) 7.3 % Normal 0-10 [facility] Comment on above: Order Comment: Order Date: 01/06/25Order Info: 0184-1 - CBCD Performed By: #### L 501.9520, L100.0100, L501.5200, L500.4100, L500.4050, L506.0400, L501.9985 ####[facility] [address] [place], [address] Neutrophils/100 WBC (Bld) 64.8 % Normal 47-70 [facility] Comment on above: Order Comment: Order Date: 01/06/25Order Info: 018- - CBCD Performed By: #### L 501.9520, L100.0100, L501.5200, L500.4100, L500.4050, L506.0400, L501.9985 ####[facility] [address] [place], [address] Nucleated RBC (Bld) [#/Vol] 0 10*3/uL Normal 0-5 [facility] Comment on above: Order Comment: Order Date: 01/06/25Order Info: 018- - CBCD Performed By: #### L 501.9520, L100.0100, L501.5200, L500.4100, L500.4050, L506.0400, L501.9985 ####[facility] [address] [place], [address] Platelet mean volume (Bld) [Entitic vol] 10.9 fL Normal 6.2-12.0 [facility] Comment on above: Order Comment: Order Date: 01/06/25Order Info: 018-1 - CBCD Performed By: #### L 501.9520, L100.0100, L501.5200, L500.4100, L500.4050, L506.0400, L501.9985 ####[facility] [address] [place], [address] Platelets (Bld) [#/Vol] 337 10*3/uL Normal 150-450 [facility] Comment on above: Order Comment: Order Date: 01/06/25Order Info: 0184-1 - CBCD Performed By: #### L 501.9520, L100.0100, L501.5200, L500.4100, L500.4050, L506.0400, L501.9985 ####[facility] [address] [place], [address] RBC (Bld) [#/Vol] 4.91 10*6/uL Normal 4.6-6.2 [facility] Comment on above: Order Comment: Order Date: 01/06/25Order Info: 0184-1 - CBCD Performed By: #### L 501.9520, L100.0100, L501.5200, L500.4100, L500.4050, L506.0400, L501.9985 ####[facility] [address] [place], [place], [address] RDW SD 43.5 fl Normal 35.1-43.9 [facility] Comment on above: Order Comment: Order Date: 01/06/25Order Info: 0184-1 - CBCD Performed By: #### L 501.9520, L100.0100, L501.5200, L500.4100, L500.4050, L506.0400, L501.9985 ####[facility] [address] [place], [place], [address] WBC (Bld) [#/Vol] 10.3 10*3/uL Normal 4.4-11.0 [facility] Comment on above: Order Comment: Order Date: 01/06/25Order Info: 0184-1 - CBCD Performed By: #### L 501.9520, L100.0100, L501.5200, L500.4100, L500.4050, L506.0400, L501.9985 ####[facility] [address] [place], [address] Comprehensive Metabolic Prof ilon 01-06-2025 Albumin [Mass/Vol] 4.1 g/dL Normal 3.5-5.0 [facility] Comment on above: Order Comment: Order Date: 01/06/25Order Info: 0786-1 - CMPOrder Info: [id number] - LIPIDOrder Info: [id number] - MGOrder Info: 3016-3 - TSHOrder Info: 3024-7 - T4F Performed By: #### L 501.9520, L100.0100, L501.5200, L500.4100, L500.4050, L506.0400, L501.9985 ####[facility] [address] [place], [place], [address] Albumin/Globulin [Mass ratio] 1.2 {ratio} Normal 0.9-2.4 [facility] Comment on above: Order Comment: Order Date: 01/06/25Order Info: 86-1 - CMPOrder Info: [id number] - LIPIDOrder Info: [id number] - MGOrder Info: 3016-3 - TSHOrder Info: 3024-7 - T4F Performed By: #### L 501.9520, L100.0100, L501.5200, L500.4100, L500.4050, L506.0400, L501.9985 ####[facility] [address] [place], [place], [address] ALK PHOS 117 U/L Normal 40-129 [facility] Comment on above: Order Comment: Order Date: 01/06/25Order Info: 86-1 - CMPOrder Info: [id number] - LIPIDOrder Info: [id number] - MGOrder Info: 3016-3 - TSHOrder Info: 3024-7 - T4F Performed By: #### L 501.9520, L100.0100, L501.5200, L500.4100, L500.4050, L506.0400, L501.9985 ####[facility] [address] [place], [address] ALT [Catalytic activity/Vol] 20 U/L Normal <=46 [facility] Comment on above: Order Comment: Order Date: 01/06/25Order Info: 0786-1 - CMPOrder Info: [id number] - LIPIDOrder Info: [id number] - MGOrder Info: 3016-3 - TSHOrder Info: 3024-7 - T4F Performed By: #### L 501.9520, L100.0100, L501.5200, L500.4100, L500.4050, L506.0400, L501.9985 ####[facility] [address] [place], [address] AST [Catalytic activity/Vol] 26 U/L Normal <=37 [facility] Comment on above: Order Comment: Order Date: 01/06/25Order Info: 86-1 - CMPOrder Info: [id number] - LIPIDOrder Info: [id number] - MGOrder Info: 3016-3 - TSHOrder Info: 3024-7 - T4F Performed By: #### L 501.9520, L100.0100, L501.5200, L500.4100, L500.4050, L506.0400, L501.9985 ####[facility] [address] [place], [address] Bilirubin [Mass/Vol] 0.48 mg/dL Normal 0.00-1.30 [facility] Comment on above: Order Comment: Order Date: 01/06/25Order Info: 86-1 - CMPOrder Info: [id number] - LIPIDOrder Info: [id number] - MGOrder Info: 3016-3 - TSHOrder Info: 3024-7 - T4F Performed By: #### L 501.9520, L100.0100, L501.5200, L500.4100, L500.4050, L506.0400, L501.9985 ####[facility] [address] [place], [address] BUN/CRE 15.9 RATIO Normal 10-20 [facility] Comment on above: Order Comment: Order Date: 01/06/25Order Info: 0786-1 - CMPOrder Info: [id number] - LIPIDOrder Info: [id number] - MGOrder Info: 3016-3 - TSHOrder Info: 3024-7 - T4F Performed By: #### L 501.9520, L100.0100, L501.5200, L500.4100, L500.4050, L506.0400, L501.9985 ####[facility] [address] [place], [address] Calcium [Mass/Vol] 9.8 mg/dL Normal 7.6-11.0 [facility] Comment on above: Order Comment: Order Date: 01/06/25Order Info: 86-1 - CMPOrder Info: [id number] - LIPIDOrder Info: [id number] - MGOrder Info: 3016-3 - TSHOrder Info: 3024-7 - T4F Performed By: #### L 501.9520, L100.0100, L501.5200, L500.4100, L500.4050, L506.0400, L501.9985 ####[facility] [address] [place], [address] Chloride [Moles/Vol] 104 mmol/L Normal 98-108 [facility] Comment on above: Order Comment: Order Date: 01/06/25Order Info: 0786-1 - CMPOrder Info: [id number] - LIPIDOrder Info: [id number] - MGOrder Info: 3016-3 - TSHOrder Info: 3024-7 - T4F Performed By: #### L 501.9520, L100.0100, L501.5200, L500.4100, L500.4050, L506.0400, L501.9985 ####[facility] [address] [place], [address] CO2 [Moles/Vol] 21.7 mmol/L Normal 21.0-32.0 [facility] Comment on above: Order Comment: Order Date: 01/06/25Order Info: 0786-1 - CMPOrder Info: [id number] - LIPIDOrder Info: [id number] - MGOrder Info: 3016-3 - TSHOrder Info: 3024-7 - T4F Performed By: #### L 501.9520, L100.0100, L501.5200, L500.4100, L500.4050, L506.0400, L501.9985 ####[facility] [address] [place], [place], [address] Creatinine [Mass/Vol] 0.95 mg/dL Normal 0.70-1.20 [facility] Comment on above: Order Comment: Order Date: 01/06/25Order Info: 0786-1 - CMPOrder Info: [id number] - LIPIDOrder Info: [id number] - MGOrder Info: 6-3 - TSHOrder Info: 3024-7 - T4F Performed By: #### L 501.9520, L100.0100, L501.5200, L500.4100, L500.4050, L506.0400, L501.9985 ####[facility] [address] [place], [place], [address] GAP 14 Normal 5-15 [facility] Comment on above: Order Comment: Order Date: 01/06/25Order Info: 0786-1 - CMPOrder Info: [id number] - LIPIDOrder Info: [id number] - MGOrder Info: 3016-3 - TSHOrder Info: 3024-7 - T4F Performed By: #### L 501.9520, L100.0100, L501.5200, L500.4100, L500.4050, L506.0400, L501.9985 ####[facility] [address] [place], [place], [address] GFR/1.73 sq M.predicted among non-blacks MDRD (S/P/Bld) [Vol rate/Area] 94 mL/min/{1.73_m2} Normal >60 [facility] Comment on above: Order Comment: Order Date: 01/06/25Order Info: 0786-1 - CMPOrder Info: [id number] - LIPIDOrder Info: [id number] - MGOrder Info: 3 - TSHOrder Info: 3024-7 - T4F Result Comment: mL/m in/1.73m2 CKD-EPI Creatinine Equation (2020) Performed By: #### L 501.9520, L100.0100, L501.5200, L500.4100, L500.4050, L506.0400, L501.9985 ####[facility] [address] [place], [address] Globulin (S) [Mass/Vol] 3.3 g/dL Normal 2.2-4.2 [facility] Comment on above: Order Comment: Order Date: 01/06/25Order Info: 07-1 - CMPOrder Info: [id number] - LIPIDOrder Info: [id number] - MGOrder Info: 3 - TSHOrder Info: 3023-7 - T4F Performed By: #### L 501.9520, L100.0100, L501.5200, L500.4100, L500.4050, L506.0400, L501.9985 ####[facility] [address] [place], [address] Glucose [Mass/Vol] 124 mg/dL High 70-99 [facility] Comment on above: Order Comment: Order Date: 01/06/25Order Info: 0786-1 - CMPOrder Info: [id number] - LIPIDOrder Info: [id number] - MGOrder Info: 3015-3 - TSHOrder Info: 3024-7 - T4F Performed By: #### L 501.9520, L100.0100, L501.5200, L500.4100, L500.4050, L506.0400, L501.9985 ####[facility] [address] [place], [address] Potassium [Moles/Vol] 4.8 mmol/L Normal 3.3-5.1 [facility] Comment on above: Order Comment: Order Date: 01/06/25Order Info: 0786-1 - CMPOrder Info: [id number] - LIPIDOrder Info: [id number] - MGOrder Info: 3016-3 - TSHOrder Info: 3024-7 - T4F Performed By: #### L 501.9520, L100.0100, L501.5200, L500.4100, L500.4050, L506.0400, L501.9985 ####[facility] [address] [place], [address] Sodium [Moles/Vol] 139 mmol/L Normal 133-145 [facility] Comment on above: Order Comment: Order Date: 01/06/25Order Info: 785-1 - CMPOrder Info: [id number] - LIPIDOrder Info: [id number] - MGOrder Info: 6-3 - TSHOrder Info: 3024-7 - T4F Performed By: #### L 501.9520, L100.0100, L501.5200, L500.4100, L500.4050, L506.0400, L501.9985 ####[facility] [address] [place], [address] T PROT 7.4 g/dL Normal 5.9-8.4 [facility] Comment on above: Order Comment: Order Date: 01/06/25Order Info: 0786-1 - CMPOrder Info: [id number] - LIPIDOrder Info: [id number] - MGOrder Info: 3016-3 - TSHOrder Info: 3024-7 - T4F Performed By: #### L 501.9520, L100.0100, L501.5200, L500.4100, L500.4050, L506.0400, L501.9985 ####[facility] [address] [place], [address] Urea nitrogen [Mass/Vol] 15 mg/dL Normal 4-19 [facility] Comment on above: Order Comment: Order Date: 01/06/25Order Info: 0786-1 - CMPOrder Info: [id number] - LIPIDOrder Info: [id number] - MGOrder Info: 3 - TSHOrder Info: 7 - T4F Performed By: #### L 501.9520, L100.0100, L501.5200, L500.4100, L500.4050, L506.0400, L501.9985 ####[facility] [address] [place], [place], [address] Hemoglobin A1con 01-06-2025 HbA1c (Bld) [Mass fraction] 6.1 % High <=5.6 [facility] Comment on above: Order Comment: Order Date: 01/06/25Order Info: [id number] - A1C Result Comment: Norm al < 5.7 % Prediabetic 5.7 - 6.4 % Diabetic >or= 6.5 % Please note range changes. Performed By: #### L 501.9520, L100.0100, L501.5200, L500.4100, L500.4050, L506.0400, L501.9985 ####[facility] [address] [place], [place], [address] Lipid Profileon 01-06-2025 CHOL:HDL 3.05 Normal [facility] Comment on above: Order Comment: Order Date: 01/06/25Order Info: 0786-1 - CMPOrder Info: [id number] - LIPIDOrder Info: [id number] - MGOrder Info: 3 - TSHOrder Info: 7 - T4F Performed By: #### L 501.9520, L100.0100, L501.5200, L500.4100, L500.4050, L506.0400, L501.9985 ####[facility] [address] [place], [place], [address] Cholesterol [Mass/Vol] 174 mg/dL Normal <=200 [facility] Comment on above: Order Comment: Order Date: 01/06/25Order Info: 0786-1 - CMPOrder Info: [id number] - LIPIDOrder Info: [id number] - MGOrder Info: 3 - TSHOrder Info: 3023-10 T4F Result Comment: Chol esterol level, Desirable <200 mg/dL Borderline high cholesterol 200-239 mg/dL High cholesterol >=240 mg/dL Recommendations of the NCEP Adult Treatment Panel for the following risk-cutoff thresholds for the [place] population. Performed By: #### L 501.9520, L100.0100, L501.5200, L500.4100, L500.4050, L506.0400, L501.9985 ####[facility] [address] [place], [address] Cholesterol in HDL [Mass/Vol] 57 mg/dL Normal [facility] Comment on above: Order Comment: Order Date: 01/06/25Order Info: 0786-1 - CMPOrder Info: - LIPIDOrder Info: [id number] - MGOrder Info: 3 - TSHOrder Info: 3023-10 T4F Result Comment: Elaina onal Cholesterol Education Program (NCEP) guidelines: <40 mg/dL: Low HDL-cholesterol (major risk factor for CHD) >= 60 mg/dL: High HDL-cholesterol (negative risk factor for CHD) HDL-cholesterol is affected by a number of factors, e.g. smoking, exercise, hormones, sex and age. Performed By: #### L 501.9520, L100.0100, L501.5200, L500.4100, L500.4050, L506.0400, L501.9985 ####[facility] [address] [place], [place], [address] Cholesterol in LDL [Mass/Vol] 76 mg/dL Normal [facility] Comment on above: Order Comment: Order Date: 01/06/25Order Info: 0786-1 - CMPOrder Info: [id number] - LIPIDOrder Info: [id number] - MGOrder Info: 63 - TSHOrder Info: 3027 - T4F Result Comment: Bord ukydvi=548-269 mg/dL Higher Ukde=691 mg/dL or greater Friedwald Equation for LDL-C Performed By: #### L 501.9520, L100.0100, L501.5200, L500.4100, L500.4050, L506.0400, L501.9985 ####[facility] [address] [place], [address] Cholesterol in VLDL [Mass/Vol] 41 mg/dL High 5-40 [facility] Comment on above: Order Comment: Order Date: 01/06/25Order Info: 0786-1 - CMPOrder Info: [id number] - LIPIDOrder Info: [id number] - MGOrder Info: 3016-3 - TSHOrder Info: 3024-7 - T4F Performed By: #### L 501.9520, L100.0100, L501.5200, L500.4100, L500.4050, L506.0400, L501.9985 ####[facility] [address], [address] Triglyceride [Mass/Vol] 206 mg/dL High [facility] Comment on above: Order Comment: Order Date: 01/06/25Order Info: 0786-1 - CMPOrder Info: [id number] - LIPIDOrder Info: [id number] - MGOrder Info: 3016-3 - TSHOrder Info: 3024-7 - T4F Result Comment: The drugs N-Acetylcysteine and Metamizole may falsely depress this assay. Normal range: <150 mg/dL Borderline High: 150-199 mg/dL High: 200-499 mg/dL Very High: >500 mg/dL Performed By: #### L 501.9520, L100.0100, L501.5200, L500.4100, L500.4050, L506.0400, L501.9985 ####[facility] [address] [place], [address] Magnesiumon 01-06-2025 Magnesium [Mass/Vol] 2.2 mg/dL Normal 1.5-2.2 [facility] Comment on above: Order Comment: Order Date: 01/06/25Order Info: 0786-1 - CMPOrder Info: [id number] - LIPIDOrder Info: [id number] - MGOrder Info: 3016-3 - TSHOrder Info: 3024-7 - T4F Performed By: #### L 501.9520, L100.0100, L501.5200, L500.4100, L500.4050, L506.0400, L501.9985 ####[facility] [address] [place], [address] Microalb:Creat Ratio,Random URon 01-06-2025 Creatinine [Mass/Vol] 141.00 mg/dL Normal 39.00- 259.0 0 [facility] Comment on above: Order Comment: Order Date: 01/06/25Order Info: [id number] - MIALB Performed By: #### L 502.0250, L400.0001 ####[facility] [address] [place], [address] MALB:CREAT UNABLE TO CALCULATE Normal <30 mg/g CRE [facility] Comment on above: Order Comment: Order Date: 01/06/25Order Info: [id number] - MIALB Performed By: #### L 502.0250, L400.0001 ####[facility] [address] [place], [address] MICROALBUMIN,UR < 12.0 Normal <20 mg/L [facility] Comment on above: Order Comment: Order Date: 01/06/25Order Info: [id number] - MIALB Performed By: #### L 502.0250, L400.0001 ####[facility] [address] [place], [address] T4 Free Directon 01-06-2025 T4 FREE DIRECT 1.10 ng/dL Normal 0.76-1.46 [facility] Comment on above: Order Comment: Order Date: 01/06/25Order Info: 0786-1 - CMPOrder Info: [id number] - LIPIDOrder Info: [id number] - MGOrder Info: 3015-3 - TSHOrder Info: 302-7 - T4F Performed By: #### L 501.9520, L100.0100, L501.5200, L500.4100, L500.4050, L506.0400, L501.9985 ####[facility] [address] [place], [address] Thyroid Stim Hormone (TSH)on 01-06-2025 TSH 11.900 uIU/mL High 0.300-4.200 [facility] Comment on above: Order Comment: Order Date: 01/06/25Order Info: 0786-1 - CMPOrder Info: [id number] - LIPIDOrder Info: - MGOrder Info: 3 - TSHOrder Info: 7 - T4F Performed By: #### L 501.9520, L100.0100, L501.5200, L500.4100, L500.4050, L506.0400, L501.9985 ####[facility] [address] [place], [address] Urinalysis, Completeon 01-06 EPI,SQUAMOUS 0-5 SEEN Normal 0-5 [facility] Comment on above: Order Comment: CLEAN CATCH Performed By: #### L 502.0250, L400.0001 ####[facility] [address] [place], [address] RBC 0-5 SEEN Normal 0-5 [facility] Comment on above: Order Comment: CLEAN CATCH Performed By: #### L 502.0250, L400.0001 ####[facility] [address] [place], [address] WBC 0-5 SEEN Normal 0-5 [facility] Comment on above: Order Comment: CLEAN CATCH Performed By: #### L 502.0250, L400.0001 ####[facility] [address] [place], [address] BACTERIA 0 SEEN Normal None Seen [facility] Comment on above: Order Comment: CLEAN CATCH Performed By: #### L 502.0250, L400.0001 ####[facility] [address] [place], [address] Mucus Ql (Urine sed) 0 SEEN Normal [facility] Comment on above: Order Comment: CLEAN CATCH Performed By: #### L 502.0250, L400.0001 ####[facility] [address] [place], [address] Surgery Visit Reporton 10-29 Surgery Visit Report [facility] [address] [place] [address] OFFICE VISIT Date of Service: 10/27/24 MR#: [id number] Acct: [id number] Name: OK GOMEZ Rep #: [id number] : 1965 Provider: CONSTANTINE ngo Age/Sex: 59/M Location: [facility] Status: Signed Intake Vital Signs 10/17/24 07:31 Height 5 ft 8 in Intake Visit Reasons: WOUND CHECK Chief Complaint: 3rd Gelsyn 3 injection bilateral knees Allergies escitalopram (From Lexapro) Adverse Reaction (Verified 10/27/24 15:24) Rash Subjective Details: Patient returns for a wound check. He denies any concerns with the left thigh wound. He notes having another area that has recently opened and drained on his right thigh. He was wondering if he would need another antibiotic. Objective Details: Left posterior thigh- wound has scabbed over. No erythema or infection noted Right posterior thigh- small scabbed wound with no erythema or infection noted Coding Level of Care Code Off vis,est,level 3 Diagnoses Abscess of thigh L02.419 [facility] Medical History Hip fracture Screening for [...] (1) Abscess of thigh: Status: Acute Plan: No antibiotic treatment is needed today Follow-up as needed 10/29/24 1416 Date Edna Cool Signature: Date (if applicable) CC: Normal [facility] Orthopedic Visit Reporton Orthopedic Visit Report [facility] [address] [place] [address] OFFICE VISIT Date of Service: 10/27/24 MR#: [id number] Acct: [id number] Name: OK GOMEZ Rep #: [id number] : 1965 Provider: DARNELL blake Age/Sex: 59/M Location[facility] Status: Signed Intake Vital Signs 09/02/24 08:59 09/24/24 09:30 10/17/24 07:31 Height 5 ft 9 in 5 ft 9 in 5 ft 8 in Intake Visit Reasons: BILATERAL KNEES Chief Complaint: 3rd Gelsyn 3 injection bilateral knees Is patient in pain?: Yes (bilateral knees) Pain scale (1-10): 6 Allergies escitalopram (From Lexapro) Adverse Reaction (Verified 10/27/24 15:24) Rash Medications ???Medication ???Instructions ???Recorded ???Confirmed ???Type metformin 500 mg tablet 1,000 mg PO BID 07/25/20 10/27/24 History paroxetine HCl 40 mg tablet 40 mg PO DAILY 07/25/20 10/27/24 H istory multivitamin 1 cap DAILY 09/27/20 10/27/24 Hist ory buspirone 10 mg tablet 10 mg PO BID 03/09/24 10/27/24 His tory levothyroxine 300 mcg tablet 300 mcg PO QDAY 03/09/24 10/27/24 History atorvastatin 40 mg tablet (Lipitor) 40 mg PO QDAY 10/07/24 10/27/24 History glimepiride 1 mg tablet 1 mg PO QDAY 10/07/24 10/27/24 His tory insulin detemir U-100 100 unit/mL 30 unit subcut QHS 10/07/2410/27 History (3 mL) subcutaneous pen metoprolol succinate 100 mg 100 mg PO QDAY 10/07/24 10/27/24 H istory tablet,extended release 24 hr pen needle, diabetic 32 gauge x #1,200 ea 10/07/24 10/08/24 Histor y semaglutide 0.25 mg or 0.5 mg (2 0.25 mg (0.368 mL) subcut QWEEK #3 10/27/24 10/27/24 Rx mg/3 mL) subcutaneous pen injector mL (Ozempic) PFSH Medical History Hip fracture Screening for prostate [...] provided and the decisions made by me, [facility] [employer] 10/27/24 5499. Part of today???s visit was documented by Jessica Amos RN, acting as scribe. OK GOMEZ is a 59 year old M here today for 3rd Gelysyn 3 injection in his bilateral knees. He reports improvement in his pain since starting the injections. Agree with above. Ok missed last week's appointment, however he was able to make today for Gelsyn-3 injection to bilateral knees. Overall he is noticing improved range of motion and activity tolerance. Complains of mild swelling to the right knee today. Denies any new injuries or aggravating factors. No adverse reaction to prior injections. Wishes to pursue injection #3/3 to bilateral knees as scheduled. ROS Const All systems reviewed are unremarkable [...] HPI, Reports abnormal gait and Reports arthralgias Neuro Yes abnormal gait and No dizziness Psych Reports system reviewed and no additional complaints, except as documented Nico/Lymph Denies easy bleeding and Denies easy bruising Ortho Exam Right Knee KNEE: Skin is pink, warm, dry and intact. There are no skin abscesses or openings, no ecchymosis, mild infrapatellar edema present Range of motion: 0-110 Palpation : No pain with palpation, negative the crepitus on exam Gait: Antalgic (more content not included)... Normal [facility] Absolute lymphocyte countOrd ered By: Davidson Schulz on 10-17-2024 Lymphocytes Auto (Unsp spec) [#/Vol] 0.96 10*3/uL 0.83-4.51 [facility] Absolute neutrophil countOrd ered By: Davidson Schulz on 10-17-2024 Neutrophils (Bld) [#/Vol] 11.9 10*3/uL High 2.0-7.7 [facility] Anion gap in Serum or Plasma Ordered By: Davidson Schulz on 10-17-2024 Anion gap [Moles/Vol] 14 mmol/L 5-15 [facility] Automated lymphocyte count a s percentage of total leukocytesOrdered By: Davidson Schulz on 10-17-2024 Lymphocytes/100 WBC Auto (Unsp spec) 6.9 % Low 19-41 [facility] BUN/creatinine ratioOrdered By: Davidson Schulz on 10-17-2024 Urea nitrogen/Creatinine [Mass ratio] 22.9 mg/mg High 10-20 [facility] Basic Metabolic Profile (BMP )on 10-17-2024 BUN/CRE 22.9 RATIO High 10-20 [facility] Comment on above: Performed By: #### L 500.2500, L100.0100 #### [facility] [address] [place], [address] Calcium [Mass/Vol] 9.4 mg/dL Normal 7.6-11.0 [facility] Comment on above: Performed By: #### L 500.2500, L100.0100 #### [facility] [address] [place], [address] Chloride [Moles/Vol] 103 mmol/L Normal 98-108 [facility] Comment on above: Performed By: #### L 500.2500, L100.0100 #### [facility] [address] [place], [address] CO2 [Moles/Vol] 21.7 mmol/L Normal 21.0-32.0 [facility] Comment on above: Performed By: #### L 500.2500, L100.0100 #### [facility] [address] [place], [address] Creatinine [Mass/Vol] 0.88 mg/dL Normal 0.70-1.20 [facility] Comment on above: Performed By: #### L 500.2500, L100.0100 #### [facility] [address] [place], [address] ECRCL 144.94 ml/min Normal 50-250 [facility] Comment on above: Performed By: #### L 500.2500, L100.0100 #### [facility] [address] [place], [address] GAP 14 Normal 5-15 [facility] Comment on above: Performed By: #### L 500.2500, L100.0100 #### [facility] [address] [place], [address] GFR/1.73 sq M.predicted among non-blacks MDRD (S/P/Bld) [Vol rate/Area] 100 mL/min/{1.73_m2} Normal >60 [facility] Comment on above: Result Comment: mL/m in/1.73m2 CKD-EPI Creatinine Equation (2020) Performed By: #### L 500.2500, L100.0100 #### [facility] [address] [place], [address] Glucose [Mass/Vol] 149 mg/dL High 70-99 [facility] Comment on above: Performed By: #### L 500.2500, L100.0100 #### [facility] [address] [place], [address] Potassium [Moles/Vol] 4.6 mmol/L Normal 3.3-5.1 [facility] Comment on above: Result Comment: Hemo lysis present, Results??could be affected. ?? Performed By: #### L 500.2500, L100.0100 #### [facility] [address] [place], [address] Sodium [Moles/Vol] 138 mmol/L Normal 133-145 [facility] Comment on above: Performed By: #### L 500.2500, L100.0100 #### [facility] [address] [place], [address] Urea nitrogen [Mass/Vol] 20 mg/dL High 4-19 [facility] Comment on above: Performed By: #### L 500.2500, L100.0100 #### [facility] [address] [place], [address] Basophil percentageOrdered B y: Davidson Schulz on 10-17-2024 Basophils/100 WBC (Bld) 0.4 % 0-1 [facility] CBC W/Diff, Automatedon 09-21 Absolute Lymph 0.96 X10 3/uL Normal 0.83-4.51 [facility] Comment on above: Performed By: #### L 500.2500, L100.0100 #### [facility] [address] [place], [address] Absolute Neut 11.9 X10 3/uL High 2.0-7.7 [facility] Comment on above: Performed By: #### L 500.2500, L100.0100 #### [facility] [address] [place], [address] Basophils/100 WBC (Bld) 0.4 % Normal 0-1 [facility] Comment on above: Performed By: #### L 500.2500, L100.0100 #### [facility] [address] [place], [address] Eosinophils/100 WBC (Bld) 2.0 % Normal 0-5 [facility] Comment on above: Performed By: #### L 500.2500, L100.0100 #### [facility] [address] [place], [address] Erythrocyte distribution width (RBC) [Ratio] 12.6 % Normal 11.6-14.6 [facility] Comment on above: Performed By: #### L 500.2500, L100.0100 #### [facility] [address] [place], [address] Hematocrit (Bld) [Volume fraction] 44.3 % Normal 40-54 [facility] Comment on above: Performed By: #### L 500.2500, L100.0100 #### [facility] [address] [place], [address] Hemoglobin (Bld) [Mass/Vol] 14.4 g/dL Normal 13.0-16.5 [facility] Comment on above: Performed By: #### L 500.2500, L100.0100 #### [facility] [address] [place], [address] IG% 0.300 Normal 0.0-0.9 [facility] Comment on above: Result Comment: IG% - Immature Granulocytes (promyelocytes, myelocytes and metamyelocytes) > 1% indicates that a LEFT SHIFT is Present. Performed By: #### L 500.2500, L100.0100 #### [facility] [address] [place], [address] Lymphocytes/100 WBC (Bld) 6.9 % Low 19-41 [facility] Comment on above: Performed By: #### L 500.2500, L100.0100 #### [facility] [address] [place], [address] MCH (RBC) [Entitic mass] 29.8 pg Normal 27.0-32.0 [facility] Comment on above: Performed By: #### L 500.2500, L100.0100 #### [facility] [address] [place], [address] MCHC (RBC) [Mass/Vol] 32.5 g/dL Normal 32-36 [facility] Comment on above: Performed By: #### L 500.2500, L100.0100 #### [facility] [address] [place], [address] MCV (RBC) [Entitic vol] 91.7 fL Normal 80-94 [facility] Comment on above: Performed By: #### L 500.2500, L100.0100 #### [facility] [address] [place], [address] Monocytes/100 WBC (Bld) 4.6 % Normal 0-10 [facility] Comment on above: Performed By: #### L 500.2500, L100.0100 #### [facility] [address] [place], [address] Neutrophils/100 WBC (Bld) 85.8 % High 47-70 [facility] Comment on above: Performed By: #### L 500.2500, L100.0100 #### [facility] [address] [place], [address] Nucleated RBC (Bld) [#/Vol] 0 10*3/uL Normal 0-5 [facility] Comment on above: Performed By: #### L 500.2500, L100.0100 #### [facility] [address] [place], [address] Platelet mean volume (Bld) [Entitic vol] 11.4 fL Normal 6.2-12.0 [facility] Comment on above: Performed By: #### L 500.2500, L100.0100 #### [facility] [address] [place], [address] Platelets (Bld) [#/Vol] 256 10*3/uL Normal 150-450 [facility] Comment on above: Performed By: #### L 500.2500, L100.0100 #### [facility] [address] [place], [address] RBC (Bld) [#/Vol] 4.83 10*6/uL Normal 4.6-6.2 [facility] Comment on above: Performed By: #### L 500.2500, L100.0100 #### [facility] [address] [place], [address] RDW SD 42.4 fl Normal 35.1-43.9 [facility] Comment on above: Performed By: #### L 500.2500, L100.0100 #### [facility] [address] [place], [address] WBC (Bld) [#/Vol] 13.8 10*3/uL High 4.4-11.0 [facility] Comment on above: Performed By: #### L 500.2500, L100.0100 #### [facility] [address] [place], [address] Carbon dioxide, total [Moles /volume] in Central venous bloodOrdered By: Davidson Schulz on 10-17-2024 CO2 [Moles/Vol] 21.7 mmol/L 21.0-32.0 [facility] Chloride assayOrdered By: Mahendra Schulz on 10-17-2024 Chloride [Moles/Vol] 103 mmol/L 98-108 [facility] Emergency Department Summary on 10-17-2024 Emergency Department Summary [facility] Medical Records Department [address] [place] [address] Emergency Department Summary 10/17/24 MR#: [id number] Acct: [id number] Name: OK GOMEZ Rep #: [id number] : 1965 59 From: Davidson Schulz DO PCP: Dr. Alison Reyes MD Status:DEP ER Location: ED HPI History of Present Illness Chief Complaint: Hypoglycemia Informant: patient Onset/Context/Timing Onset: Today Context: Gradual Onset Timing: Continuous Quality: Nausea Location: Generalized Worsened by: Nothing Relieved by: Nothing Narrative Narrative: Patient presents with possible hypoglycemic episode that occurred today. Patient gave himself his insulin injection this morning around 1 AM but thought it misfired. Patient gave himself a second injection. Patient's blood sugar at home was 84. Patient called EMS and was brought to the emergency department. Patient denies any lightheadedness or dizziness. Patient admits to occasional shortness of breath. Patient admits to some nausea but denies any vomiting. Patient denies any chest pain. [facility] Medical History Hip fracture Screening for prostate [...] Medications ???Medication ???Instructions ???Recorded ???Last Taken ???Type metformin 500 mg tablet 1,000 mg PO BID 07/25/20 Unknown H istory paroxetine HCl 40 mg tablet 40 mg PO DAILY 07/25/20 Unknown Hi story multivitamin 1 cap DAILY 09/27/20 Unknown Histo ry buspirone 10 mg tablet 10 mg PO BID 03/09/24 Unknown Hist ory levothyroxine 300 mcg tablet 300 mcg PO QDAY 03/09/24 Unknown H istory albuterol sulfate 90 mcg/actuation 1 inh inhalation Q4H 10/07/24 Un known History breath activated powder inhaler,sensor (Proair Digihaler) atorvastatin 40 mg tablet (Lipitor) 40 mg PO QDAY 10/07/24 Unknown History glimepiride 1 mg tablet 1 mg PO QDAY 10/07/24 Unknown Hist ory insulin detemir U-100 100 unit/mL 30 unit subcut QHS 10/07/24 Unkno wn History (3 mL) subcutaneous pen metoprolol succinate 100 mg 100 mg PO QDAY 10/07/24 Unknown Hi story tablet,extended release 24 hr pen needle, diabetic 32 gauge x #1,200 ea 10/07/24 Unknown History Allergy/AdvReac Type Severity Reaction Status Date / Time escitalopram (From Lexapro) AdvReac Rash Verified 10/17/24 07:31 Family History Father Hypertension Mother Myocardial infarction Diabetes Hypertension Sister Diabetes Surgical History History of hip surgery Social History household members: none Smoking Status: Never smoker alcohol intake: never substance use type: does not use caffeine: Yes Type: carbonated beverages Number of servings: 1 and tea Number of servings: 3 ROS ROS ED Constitutional Constitutional ED: Reports chills and subjective; Denies fever(s) Eyes Eyes: Denies blurry vision or change in vision ENT ENT ED: Denies rhinorrhea or sore throat Cardiovascular Cardiovascular: Denies chest pain or palpitations Respiratory/Chest Respiratory/Chest: Reports dyspnea; Denies cough Gastrointestinal Gastrointestinal: Reports nausea; Denies vomiting Genitourinary Genitourinary ED: Denies dysuria or hematuria Musculoskeletal Musculoskeletal: Denies back pain or neck pain Integumentary Denies abscess or rash Neurologic Neurologic: Denies headache(s) or weakness Allergic/Immunologic Allergic/Immunologic ED: Denies mouth swelling or urticaria EXAM Physical Exam Const Vital Signs: 10/17/24 07:31 10/17/24 07:35 Temperature 97.7 F L Temperature Source Temporal Pulse Rate 88 Respiratory Rate 20 H Respiratory Effort Labored Blood Pressure 166/95 H Blood Pressure Mean 118 Pulse Ox 99 Oxygen Delivery Method Room Air Positive well nourished and well developed General Appearance ED: well developed and NAD HEENT Reports moist mucous membranes Neck supple and no JVD Resp normal respiratory effort and clear to auscultation bilaterall (more content not included)... Normal [facility] Eosinophil percentageOrdered By: Davidson Schulz on 10-17-2024 Eosinophils/100 WBC (Bld) 2.0 % 0-5 [facility] Erythrocyte distribution wid th ratioOrdered By: Davidson Schulz on 10-17-2024 Erythrocyte distribution width (RBC) [Ratio] 12.6 % 11.6-14.6 [facility] Erythrocyte distribution wid th standard deviationOrdered By: Davidson Schulz on 10-17-2024 Erythrocyte distribution width (RBC) [Ratio] 42.4 fl 35.1-43.9 [facility] Glomerular filtration rate ( GFR) estimation/1.73 sq m using serum, plasma, or whole bOrdered By: Davidson Schulz on 10-17-2024 GFR/1.73 sq M.predicted among non-blacks MDRD (S/P/Bld) [Vol rate/Area] 100 mL/min/{1.73_m2} >60 [facility] Comment on above: mL/min/1.73m2 CKD-EP I Creatinine Equation (2020) Hematocrit Auto (Bld) [Volum e fraction]Ordered By: Davidson Schulz on 10-17-2024 Hematocrit (Bld) [Volume fraction] 44.3 % 40-54 [facility] Hemoglobin measurementOrdere d By: Davidson Schulz on 10-17-2024 Hemoglobin (Bld) [Mass/Vol] 14.4 g/dL 13.0-16.5 [facility] Immature granulocytes/100 WB C Auto (Bld)Ordered By: Davidson Schulz on 10-17-2024 Immature granulocytes/100 WBC (Bld) 0.300 % 0.0-0.9 [facility] Comment on above: IG% - Immature Granu locytes (promyelocytes, myelocytes and metamyelocytes) > 1% indicates that a LEFT SHIFT is Present. MCV (mean corpuscular volume ) determinationOrdered By: Davidson Schulz on 10-17-2024 MCV (RBC) [Entitic vol] 91.7 fL 80-94 [facility] Mean corpuscular hemoglobin (MCH) determinationOrdered By: Davidson Schulz 10-17-2024 MCH (RBC) [Entitic mass] 29.8 pg 27.0-32.0 [facility] Mean corpuscular hemoglobin concentration (MCHC) determinationOrdered By: Davidson Schulz 10-17-2024 MCHC (RBC) [Mass/Vol] 32.5 g/dL 32-36 [facility] Mean platelet volume determi nationOrdered By: Davidson Schulz on 10-17-2024 Platelet mean volume (Bld) [Entitic vol] 11.4 fL 6.2-12.0 [facility] Monocyte percentageOrdered B y: Davidson Schulz on 10-17-2024 Monocytes/100 WBC (Bld) 4.6 % 0-10 [facility] Neutrophil percentageOrdered By: Davidson Schulz on 10-17-2024 Neutrophils/100 WBC (Bld) 85.8 % High 47-70 [facility] Nucleated red blood cell per centageOrdered By: Davidson Schulz on 10-17-2024 Nucleated RBC/100 WBC (Bld) [Ratio] 0 % 0-5 [facility] Platelet countOrdered By: Mahendra Schulz on 10-17-2024 Platelets (Bld) [#/Vol] 256 10*3/uL 150-450 [facility] Potassium measurement (mass/ volume)Ordered By: Davidson Schulz on 10-17-2024 Potassium (Unsp spec) [Mass/Vol] 4.6 mmol/L 3.3-5.1 [facility] Comment on above: Hemolysis present, R esults could be affected. RBC Auto (Bld) [#/Vol]Ordere d By: Davidson Schulz on 10-17-2024 RBC (Bld) [#/Vol] 4.83 10*6/uL 4.6-6.2 [facility] Serum creatinine measurement (mass/volume)Ordered By: Davidson Schulz on 10-17-2024 Creatinine [Mass/Vol] 0.88 mg/dL 0.70-1.20 [facility] Serum glucose measurement (m ass/volume)Ordered By: Davidson Schulz on 10-17-2024 Glucose [Mass/Vol] 149 mg/dL High 70-99 [facility] Serum or plasma calcium carmelita urement (mass/volume)Ordered By: Davidson Schulz on 10-17-2024 Calcium [Mass/Vol] 9.4 mg/dL 7.6-11.0 [facility] Serum or plasma urea nitroge n measurement (mass/volume)Ordered By: Davidson Schulz on 10-17-2024 Urea nitrogen [Mass/Vol] 20 mg/dL High 4-19 [facility] Sodium levelOrdered By: Davidson Schulz on 10-17-2024 Sodium [Moles/Vol] 138 mmol/L 133-145 [facility] White blood cell (WBC) count Ordered By: Davidson Crawfordmali on 10-17-2024 WBC (Bld) [#/Vol] 13.8 10*3/uL [facility] 4.4-[facility] Report[facility] Orthopedic Visit Report [facility] [address] [place] [address] [address] [place] [address] OFFICE VISIT Date of Service: 10/08/24 MR#: [id number] Acct: [id number] Name: OK GOMEZ Rep #: [id number] : 1965 Provider: DARNELL blake Age/Sex: 59/M Location: [facility] [place] Status: Signed Intake Vital Signs 09/02/24 08:59 [...] x #1,200 ea 10/07/24 10/08/24 Histor y [facility] Medical History Hip fracture Screening for [...] provided and the decisions made by me, [facility] [employer] 10/08/24 0506. Part of today???s visit was documented by [...] Antalgic g (more content not included)... Normal [facility] Absolute lymphocyte countOrd ered By: Alison Reyes on 10-06-2024 Lymphocytes Auto (Unsp spec) [#/Vol] 2.24 10*3/uL 0.83-4.51 [facility] Absolute neutrophil countOrd ered By: Alison Reyes on 10-06-2024 Neutrophils (Bld) [#/Vol] 5.1 10*3/uL 2.0-7.7 [facility] Anion gap in Serum or Plasma Ordered By: Alison Reyes on 10-06-2024 Anion gap [Moles/Vol] 11 mmol/L 5-15 [facility] Automated lymphocyte count a s percentage of total leukocytesOrdered By: Alison Reyes on 10-06-2024 Lymphocytes/100 WBC Auto (Unsp spec) 27.0 % 19-41 [facility] BUN/creatinine ratioOrdered By: Alison Reyes on 10-06-2024 Urea nitrogen/Creatinine [Mass ratio] 15.7 mg/mg 10-20 [facility] Basophil percentageOrdered B y: Alison Reyes on 10-06-2024 Basophils/100 WBC (Bld) 1.0 % 0-1 [facility] Bilirubin, totalOrdered By: Alison Reyes on 10-06-2024 Bilirubin [Mass/Vol] 0.40 mg/dL 0.00-1.30 [facility] CBC W/Diff, Automatedon 09-20 Absolute Lymph 2.24 X10 3/uL Normal 0.83-4.51 [facility] Comment on above: Order Comment: Order Date: 06/24/24 Order Info: 0184- - CBCD Performed By: #### L 501.9985, L100.0100, L501.9520, L506.0400, L500.4100, L500.4050 #### [facility] [address] [place], [address] Absolute Neut 5.1 X10 3/uL Normal 2.0-7.7 [facility] Comment on above: Order Comment: Order Date: 06/24/24 Order Info: 0184- - CBCD Performed By: #### L 501.9985, L100.0100, L501.9520, L506.0400, L500.4100, L500.4050 #### [facility] [address] [place], [place], [phone] ([phone]) Basophils/100 WBC (Bld) 1.0 % Normal 0-1 [facility] Comment on above: Order Comment: Order Date: 06/24/24 Order Info: 0184- - CBCD Performed By: #### L 501.9985, L100.0100, L501.9520, L506.0400, L500.4100, L500.4050 #### [facility] [address] [place], [place], [id number] (077) Eosinophils/100 WBC (Bld) 3.2 % Normal 0-5 [facility] Comment on above: Order Comment: Order Date: 06/24/24 Order Info: 0184- - CBCD Performed By: #### L 501.9985, L100.0100, L501.9520, L506.0400, L500.4100, L500.4050 #### [facility] [address] [place], [place], [address] Erythrocyte distribution width (RBC) [Ratio] 12.4 % Normal 11.6-14.6 [facility] Comment on above: Order Comment: Order Date: 06/24/24 Order Info: 0184-1 - CBCD Performed By: #### L 501.9985, L100.0100, L501.9520, L506.0400, L500.4100, L500.4050 #### [facility] [address] [place], [address] Hematocrit (Bld) [Volume fraction] 42.9 % Normal 40-54 [facility] Comment on above: Order Comment: Order Date: 06/24/24 Order Info: 0184-1 - CBCD Performed By: #### L 501.9985, L100.0100, L501.9520, L506.0400, L500.4100, L500.4050 #### [facility] [address] [place], [place], [id number] Hemoglobin (Bld) [Mass/Vol] 14.2 g/dL Normal 13.0-16.5 [facility] Comment on above: Order Comment: Order Date: 06/24/24 Order Info: 0184-1 - CBCD Performed By: #### L 501.9985, L100.0100, L501.9520, L506.0400, L500.4100, L500.4050 #### [facility] [address] [place], [address] IG% 0.200 Normal 0.0-0.9 [facility] Comment on above: Order Comment: Order Date: 06/24/24 Order Info: 0184-1 - CBCD Result Comment: IG% - Immature Granulocytes (promyelocytes, myelocytes and metamyelocytes) > 1% indicates that a LEFT SHIFT is Present. Performed By: #### L 501.9985, L100.0100, L501.9520, L506.0400, L500.4100, L500.4050 #### [facility] [address] [place], [address] Lymphocytes/100 WBC (Bld) 27.0 % Normal 19-41 [facility] Comment on above: Order Comment: Order Date: 06/24/24 Order Info: 0184 - CBCD Performed By: #### L 501.9985, L100.0100, L501.9520, L506.0400, L500.4100, L500.4050 #### [facility] [address] [place], [address] MCH (RBC) [Entitic mass] 30.3 pg Normal 27.0-32.0 [facility] Comment on above: Order Comment: Order Date: 06/24/24 Order Info: 0184 - CBCD Performed By: #### L 501.9985, L100.0100, L501.9520, L506.0400, L500.4100, L500.4050 #### [facility] [address] [place], [address] MCHC (RBC) [Mass/Vol] 33.1 g/dL Normal 32-36 [facility] Comment on above: Order Comment: Order Date: 06/24/24 Order Info: 0184- - CBCD Performed By: #### L 501.9985, L100.0100, L501.9520, L506.0400, L500.4100, L500.4050 #### [facility] [address] [place], [address] MCV (RBC) [Entitic vol] 91.5 fL Normal 80-94 [facility] Comment on above: Order Comment: Order Date: 06/24/24 Order Info: 0184- - CBCD Performed By: #### L 501.9985, L100.0100, L501.9520, L506.0400, L500.4100, L500.4050 #### [facility] [address] [place], [address] Monocytes/100 WBC (Bld) 7.8 % Normal 0-10 [facility] Comment on above: Order Comment: Order Date: 06/24/24 Order Info: [id number] - CBCD Performed By: #### L 501.9985, L100.0100, L501.9520, L506.0400, L500.4100, L500.4050 #### [facility] [address] [place], [address] Neutrophils/100 WBC (Bld) 60.8 % Normal 47-70 [facility] Comment on above: Order Comment: Order Date: 06/24/24 Order Info: [id number] - CBCD Performed By: #### L 501.9985, L100.0100, L501.9520, L506.0400, L500.4100, L500.4050 #### [facility] [address] [place], [address] Nucleated RBC (Bld) [#/Vol] 0 10*3/uL Normal 0-5 [facility] Comment on above: Order Comment: Order Date: 06/24/24 Order Info: 0184-1 - CBCD Performed By: #### L 501.9985, L100.0100, L501.9520, L506.0400, L500.4100, L500.4050 #### [facility] [address] [place], [address] Platelet mean volume (Bld) [Entitic vol] 11.4 fL Normal 6.2-12.0 [facility] Comment on above: Order Comment: Order Date: 06/24/24 Order Info: 0184-1 - CBCD Performed By: #### L 501.9985, L100.0100, L501.9520, L506.0400, L500.4100, L500.4050 #### [facility] [address] [place], [address] Platelets (Bld) [#/Vol] 280 10*3/uL Normal 150-450 [facility] Comment on above: Order Comment: Order Date: 06/24/24 Order Info: [id number] - CBCD Performed By: #### L 501.9985, L100.0100, L501.9520, L506.0400, L500.4100, L500.4050 #### [facility] [address] [place], [address] RBC (Bld) [#/Vol] 4.69 10*6/uL Normal 4.6-6.2 [facility] Comment on above: Order Comment: Order Date: 06/24/24 Order Info: 0184-1 - CBCD Performed By: #### L 501.9985, L100.0100, L501.9520, L506.0400, L500.4100, L500.4050 #### [facility] [address] [place], [address] RDW SD 41.7 fl Normal 35.1-43.9 [facility] Comment on above: Order Comment: Order Date: 06/24/24 Order Info: 0184-1 - CBCD Performed By: #### L 501.9985, L100.0100, L501.9520, L506.0400, L500.4100, L500.4050 #### [facility] [address] [place], [address] WBC (Bld) [#/Vol] 8.3 10*3/uL Normal 4.4-11.0 [facility] Comment on above: Order Comment: Order Date: 06/24/24 Order Info: 0184-1 - CBCD Performed By: #### L 501.9985, L100.0100, L501.9520, L506.0400, L500.4100, L500.4050 #### [facility] [address] [place], [place], [address] Calculated very low density lipoprotein (VLDL) cholesterol measurementOrdered By: Alison Reyes on 10-06-2024 Calculated very low density lipoprotein (VLDL) cholesterol measurement 31 mg/dL 5-40 [facility] Carbon dioxide, total [Moles /volume] in Central venous bloodOrdered By: Alison Reyes on 10-06-2024 CO2 [Moles/Vol] 22.5 mmol/L 21.0-32.0 [facility] Chloride assayOrdered By: Sarah Reyes on 10-06-2024 Chloride [Moles/Vol] 106 mmol/L 98-108 [facility] Comprehensive Metabolic Prof ilon 10-06-2024 Albumin [Mass/Vol] 3.9 g/dL Normal 3.5-5.0 [facility] Comment on above: Order Comment: Order Date: 06/24/24 Order Info: [id number] - CMP Order Info: [id number] - LIPID Order Info: [id number] - TSH Order Info: 302-7 - T4F Performed By: #### L 501.9985, L100.0100, L501.9520, L506.0400, L500.4100, L500.4050 #### [facility] [address] [place], [address] Albumin/Globulin [Mass ratio] 1.3 {ratio} Normal 0.9-2.4 [facility] Comment on above: Order Comment: Order Date: 06/24/24 Order Info: [id number] - CMP Order Info: [id number] - LIPID Order Info: [id number] - TSH Order Info: 3024-7 - T4F Performed By: #### L 501.9985, L100.0100, L501.9520, L506.0400, L500.4100, L500.4050 #### [facility] [address] [place], [address] ALK PHOS 112 U/L Normal 40-129 [facility] Comment on above: Order Comment: Order Date: 06/24/24 Order Info: [id number] - CMP Order Info: - LIPID Order Info: [id number] - TSH Order Info: 3024-7 - T4F Performed By: #### L 501.9985, L100.0100, L501.9520, L506.0400, L500.4100, L500.4050 #### [facility] [address] [place], [address] ALT [Catalytic activity/Vol] 24 U/L Normal <=46 [facility] Comment on above: Order Comment: Order Date: 06/24/24 Order Info: [id number] - CMP Order Info: - LIPID Order Info: [id number] - TSH Order Info: 7 - T4F Performed By: #### L 501.9985, L100.0100, L501.9520, L506.0400, L500.4100, L500.4050 #### [facility] [address] [place], [place], [address] AST [Catalytic activity/Vol] 25 U/L Normal <=37 [facility] Comment on above: Order Comment: Order Date: 06/24/24 Order Info: 785-1 - CMP Order Info: - LIPID Order Info: [id number] - TSH Order Info: [id number] - T4F Performed By: #### L 501.9985, L100.0100, L501.9520, L506.0400, L500.4100, L500.4050 #### [facility] [address] [place], [address] Bilirubin [Mass/Vol] 0.40 mg/dL Normal 0.00-1.30 [facility] Comment on above: Order Comment: Order Date: 06/24/24 Order Info: 0786-1 - CMP Order Info: [id number] - LIPID Order Info: 3 - TSH Order Info: 3024-7 - T4F Performed By: #### L 501.9985, L100.0100, L501.9520, L506.0400, L500.4100, L500.4050 #### [facility] [address] [place], [address] BUN/CRE 15.7 RATIO Normal 10-20 [facility] Comment on above: Order Comment: Order Date: 06/24/24 Order Info: [id number] - CMP Order Info: [id number] - LIPID Order Info: [id number] - TSH Order Info: 3024-7 - T4F Performed By: #### L 501.9985, L100.0100, L501.9520, L506.0400, L500.4100, L500.4050 #### [facility] [address] [place], [address] Calcium [Mass/Vol] 9.5 mg/dL Normal 7.6-11.0 [facility] Comment on above: Order Comment: Order Date: 06/24/24 Order Info: 07-1 - CMP Order Info: [id number] - LIPID Order Info: [id number] - TSH Order Info: 3024-7 - T4F Performed By: #### L 501.9985, L100.0100, L501.9520, L506.0400, L500.4100, L500.4050 #### [facility] [address] [place], [address] Chloride [Moles/Vol] 106 mmol/L Normal 98-108 [facility] Comment on above: Order Comment: Order Date: 06/24/24 Order Info: [id number] - CMP Order Info: [id number] - LIPID Order Info: [id number] - TSH Order Info: 3024-7 - T4F Performed By: #### L 501.9985, L100.0100, L501.9520, L506.0400, L500.4100, L500.4050 #### [facility] [address] [place], [address] CO2 [Moles/Vol] 22.5 mmol/L Normal 21.0-32.0 [facility] Comment on above: Order Comment: Order Date: 06/24/24 Order Info: 785-1 - CMP Order Info: - LIPID Order Info: [id number] - TSH Order Info: 7 - T4F Performed By: #### L 501.9985, L100.0100, L501.9520, L506.0400, L500.4100, L500.4050 #### [facility] [address] [place], [address] Creatinine [Mass/Vol] 0.81 mg/dL Normal 0.70-1.20 [facility] Comment on above: Order Comment: Order Date: 06/24/24 Order Info: 86-1 - CMP Order Info: - LIPID Order Info: [id number] - TSH Order Info: 7 - T4F Performed By: #### L 501.9985, L100.0100, L501.9520, L506.0400, L500.4100, L500.4050 #### [facility] [address] [place], [place], [address] GAP 11 Normal 5-15 [facility] Comment on above: Order Comment: Order Date: 06/24/24 Order Info: 86-1 - CMP Order Info: - LIPID Order Info: [id number] - TSH Order Info: 7 - T4F Performed By: #### L 501.9985, L100.0100, L501.9520, L506.0400, L500.4100, L500.4050 #### [facility] [address] [place], [place], [address] GFR/1.73 sq M.predicted among non-blacks MDRD (S/P/Bld) [Vol rate/Area] 103 mL/min/{1.73_m2} Normal >60 [facility] Comment on above: Order Comment: Order Date: 06/24/24 Order Info: [id number] - CMP Order Info: [id number] - LIPID Order Info: 3016-3 - TSH Order Info: 3027 - T4F Result Comment: mL/m in/1.73m2 CKD-EPI Creatinine Equation (2020) Performed By: #### L 501.9985, L100.0100, L501.9520, L506.0400, L500.4100, L500.4050 #### [facility] [address] [place], [address] Globulin (S) [Mass/Vol] 3.0 g/dL Normal 2.2-4.2 [facility] Comment on above: Order Comment: Order Date: 06/24/24 Order Info: [id number] - CMP Order Info: [id number] - LIPID Order Info: 3 - TSH Order Info: 7 - T4F Performed By: #### L 501.9985, L100.0100, L501.9520, L506.0400, L500.4100, L500.4050 #### [facility] [address] [place], [address] Glucose [Mass/Vol] 109 mg/dL High 70-99 [facility] Comment on above: Order Comment: Order Date: 06/24/24 Order Info: [id number] - CMP Order Info: [id number] - LIPID Order Info: 3 - TSH Order Info: 7 - T4F Performed By: #### L 501.9985, L100.0100, L501.9520, L506.0400, L500.4100, L500.4050 #### [facility] [address] [place], [address] Potassium [Moles/Vol] 4.4 mmol/L Normal 3.3-5.1 [facility] Comment on above: Order Comment: Order Date: 06/24/24 Order Info: 0786-1 - CMP Order Info: [id number] - LIPID Order Info: 63 - TSH Order Info: [id number] - T4F Performed By: #### L 501.9985, L100.0100, L501.9520, L506.0400, L500.4100, L500.4050 #### [facility] [address] [place], [address] Sodium [Moles/Vol] 140 mmol/L Normal 133-145 [facility] Comment on above: Order Comment: Order Date: 06/24/24 Order Info: 0786-1 - CMP Order Info: [id number] - LIPID Order Info: [id number] - TSH Order Info: 3024-7 - T4F Performed By: #### L 501.9985, L100.0100, L501.9520, L506.0400, L500.4100, L500.4050 #### [facility] [address] [place], [address] T PROT 6.9 g/dL Normal 5.9-8.4 [facility] Comment on above: Order Comment: Order Date: 06/24/24 Order Info: 0786-1 - CMP Order Info: [id number] - LIPID Order Info: 63 - TSH Order Info: 3024-7 - T4F Performed By: #### L 501.9985, L100.0100, L501.9520, L506.0400, L500.4100, L500.4050 #### [facility] [address] [place], [address] Urea nitrogen [Mass/Vol] 13 mg/dL Normal 4-19 [facility] Comment on above: Order Comment: Order Date: 06/24/24 Order Info: 0786-1 - CMP Order Info: [id number] - LIPID Order Info: [id number] - TSH Order Info: 3024-7 - T4F Performed By: #### L 501.9985, L100.0100, L501.9520, L506.0400, L500.4100, L500.4050 #### [facility] [address] [place], [address] Eosinophil percentageOrdered By: Alison Reyes on 10-06-2024 Eosinophils/100 WBC (Bld) 3.2 % 0-5 [facility] Erythrocyte distribution wid th ratioOrdered By: Alison Reyes on 10-06-2024 Erythrocyte distribution width (RBC) [Ratio] 12.4 % 11.6-14.6 [facility] Erythrocyte distribution wid th standard deviationOrdered By: Alison Reyes on 10-06-2024 Erythrocyte distribution width (RBC) [Ratio] 41.7 fl 35.1-43.9 [facility] Glomerular filtration rate ( GFR) estimation/1.73 sq m using serum, plasma, or whole bOrdered By: Alison Reyes on 10-06-2024 GFR/1.73 sq M.predicted among non-blacks MDRD (S/P/Bld) [Vol rate/Area] 103 mL/min/{1.73_m2} >60 [facility] Comment on above: mL/min/1.73m2 CKD-EP I Creatinine Equation (2020) Hematocrit Auto (Bld) [Volum e fraction]Ordered By: Alison Reyes on 10-06-2024 Hematocrit (Bld) [Volume fraction] 42.9 % 40-54 [facility] Hemoglobin A1con 10-06-2024 HbA1c (Bld) [Mass fraction] 6.2 % High <=5.6 [facility] Comment on above: Order Comment: Order Date: 06/24/24 Order Info: [id number] - A1C Result Comment: Norm al < 5.7 % Prediabetic 5.7 - 6.4 % Diabetic >or= 6.5 % Please note range changes. Performed By: #### L 501.9985, L100.0100, L501.9520, L506.0400, L500.4100, L500.4050 #### [facility] [address] [place] [address]. [place], [address] Hemoglobin A1c percentageOrd ered By: Alison Reyes on 10-06-2024 HbA1c (Bld) [Mass fraction] 6.2 % High <5.7 [facility] Comment on above: Normal < 5.7 % Predi abetic 5.7 - 6.4 % Diabetic >or= 6.5 % Please note range changes. Hemoglobin measurementOrdere d By: Alison Reyes on 10-06-2024 Hemoglobin (Bld) [Mass/Vol] 14.2 g/dL 13.0-16.5 [facility] Immature granulocytes/100 WB C Auto (Bld)Ordered By: Alison Reyes on 10-06-2024 Immature granulocytes/100 WBC (Bld) 0.200 % 0.0-0.9 [facility] Comment on above: IG% - Immature Granu locytes (promyelocytes, myelocytes and metamyelocytes) > 1% indicates that a LEFT SHIFT is Present. LDL calc ser/plasOrdered By: Alison Reyes on 10-06-2024 Cholesterol in LDL [Mass/Vol] 52 mg/dL [facility] Comment on above: Nvuccmnuoq=858-416 m g/dL & Higher Ibtg=056 mg/dL or greater Laboratory - Chemistry and C hemistry - challengeOrdered By: Alison Reyes on 10-06-2024 AST [Catalytic activity/Vol] 25 U/L <38 [facility] Lipid Profileon 10-06-2024 CHOL:HDL 2.86 Normal [facility] Comment on above: Order Comment: Order Date: 06/24/24Order Info: [id number] - CMPOrder Info: [id number] - LIPIDOrder Info: [id number] - TSHOrder Info: 3024-7 - T4F Performed By: #### L 501.9985, L100.0100, L501.9520, L506.0400, L500.4100, L500.4050 ####[facility] [address] [place], [place], [address] Cholesterol [Mass/Vol] 128 mg/dL Normal <=200 [facility] Comment on above: Order Comment: Order Date: 06/24/24Order Info: [id number] - CMPOrder Info: [id number] - LIPIDOrder Info: [id number] - TSHOrder Info: 3024-7 - T4F Result Comment: Chol esterol level, Desirable <200 mg/dL Borderline high cholesterol 200-239 mg/dL High cholesterol >=240 mg/dL Recommendations of the NCEP Adult Treatment Panel for the following risk-cutoff thresholds for the [place] population. Performed By: #### L 501.9985, L100.0100, L501.9520, L506.0400, L500.4100, L500.4050 ####[facility] [address] [place], [address] Cholesterol in HDL [Mass/Vol] 45 mg/dL Normal [facility] Comment on above: Order Comment: Order Date: 06/24/24Order Info: [id number] - CMPOrder Info: [id number] - LIPIDOrder Info: [id number] - TSHOrder Info: 3023-10 - T4F Result Comment: Elaina onal Cholesterol Education Program (NCEP) guidelines: <40 mg/dL: Low HDL-cholesterol (major risk factor for CHD) >= 60 mg/dL: High HDL-cholesterol (negative risk factor for CHD) HDL-cholesterol is affected by a number of factors, e.g. smoking, exercise, hormones, sex and age. Performed By: #### L 501.9985, L100.0100, L501.9520, L506.0400, L500.4100, L500.4050 ####[facility] [address] [place], [address] Cholesterol in LDL [Mass/Vol] 52 mg/dL Normal [facility] Comment on above: Order Comment: Order Date: 06/24/24Order Info: [id number] - CMPOrder Info: [id number] - LIPIDOrder Info: [id number] - TSHOrder Info: 3023-10 T4F Result Comment: Bord kecwvj=685-753 mg/dL Higher Krln=617 mg/dL or greater Performed By: #### L 501.9985, L100.0100, L501.9520, L506.0400, L500.4100, L500.4050 ####[facility] [address] [place], [address] Cholesterol in VLDL [Mass/Vol] 31 mg/dL Normal 5-40 [facility] Comment on above: Order Comment: Order Date: 06/24/24Order Info: [id number] - CMPOrder Info: [id number] - LIPIDOrder Info: [id number] - TSHOrder Info: 3023-7 - T4F Performed By: #### L 501.9985, L100.0100, L501.9520, L506.0400, L500.4100, L500.4050 ####[facility] [address] [place], [place], [address] Triglyceride [Mass/Vol] 154 mg/dL Normal [facility] Comment on above: Order Comment: Order Date: 06/24/24Order Info: [id number] - CMPOrder Info: [id number] - LIPIDOrder Info: 3 - TSHOrder Info: 7 - T4F Result Comment: The drugs N-Acetylcysteine and Metamizole may falsely depress this assay. Normal range: <150 mg/dL Borderline High: 150-199 mg/dL High: 200-499 mg/dL Very High: >500 mg/dL Performed By: #### L 501.9985, L100.0100, L501.9520, L506.0400, L500.4100, L500.4050 ####[facility] [address] [place], [place], [address] MCV (mean corpuscular volume ) determinationOrdered By: Alison Reyes on 10-06-2024 MCV (RBC) [Entitic vol] 91.5 fL 80-94 [facility] Mean corpuscular hemoglobin (MCH) determinationOrdered By: Alison Reyes on 10-06-2024 MCH (RBC) [Entitic mass] 30.3 pg 27.0-32.0 [facility] Mean corpuscular hemoglobin concentration (MCHC) determinationOrdered By: Alison Reyes on 10-06-2024 MCHC (RBC) [Mass/Vol] 33.1 g/dL 32-36 [facility] Mean platelet volume determi nationOrdered By: Alison Reyes on 10-06-2024 Platelet mean volume (Bld) [Entitic vol] 11.4 fL 6.2-12.0 [facility] Monocyte percentageOrdered B y: Alison Reyes on 10-06-2024 Monocytes/100 WBC (Bld) 7.8 % 0-10 [facility] Neutrophil percentageOrdered By: Alison Reyes on 10-06-2024 Neutrophils/100 WBC (Bld) 60.8 % 47-70 [facility] Nucleated red blood cell per centageOrdered By: Alison Reyes on 10-06-2024 Nucleated RBC/100 WBC (Bld) [Ratio] 0 % 0-5 [facility] Platelet countOrdered By: Sarah Reyes on 10-06-2024 Platelets (Bld) [#/Vol] 280 10*3/uL 150-450 [facility] Potassium measurement (mass/ volume)Ordered By: Alison Reyes on 10-06-2024 Potassium (Unsp spec) [Mass/Vol] 4.4 mmol/L 3.3-5.1 [facility] RBC Auto (Bld) [#/Vol]Ordere d By: Alison Reyes on 10-06-2024 RBC (Bld) [#/Vol] 4.69 10*6/uL 4.6-6.2 [facility] Screening total cholesterol/ high density lipoprotein (HDL) cholesterol ratioOrdered By: Alison Reyes on 10-06-2024 Cholesterol.total/Rosanne sterol in HDL [Mass ratio] 2.86 {ratio} [facility] Serum creatinine measurement (mass/volume)Ordered By: Alison Reyes on 10-06-2024 Creatinine [Mass/Vol] 0.81 mg/dL 0.70-1.20 [facility] Serum globulin measurementOr dered By: Alison Reyes on 10-06-2024 Globulin (S) [Mass/Vol] 3.0 g/dL 2.2-4.2 [facility] Serum glucose measurement (m ass/volume)Ordered By: Alison Reyes on 10-06-2024 Glucose [Mass/Vol] 109 mg/dL High 70-99 [facility] Serum or plasma alanine hitchcock otransferase (ALT) measurementOrdered By: Alison Reyes on 10-06-2024 ALT [Catalytic activity/Vol] 24 U/L <47 [facility] Serum or plasma albumin carmelita urement (mass/volume)Ordered By: Alison Reyes on 10-06-2024 Albumin [Mass/Vol] 3.9 g/dL 3.5-5.0 [facility] Serum or plasma albumin/glob ulin mass ratioOrdered By: Alison Reyes on 10-06-2024 Albumin/Globulin [Mass ratio] 1.3 {ratio} 0.9-2.4 [facility] Serum or plasma alkaline regan sphatase measurementOrdered By: Alison Reyes on 10-06-2024 ALP [Catalytic activity/Vol] 112 U/L 40-129 [facility] Serum or plasma calcium carmelita urement (mass/volume)Ordered By: Alison Reyes on 10-06-2024 Calcium [Mass/Vol] 9.5 mg/dL 7.6-11.0 [facility] Serum or plasma cholesterol in HDL measurement (mass/volume)Ordered By: Alison Reyes on 10-06-2024 Cholesterol in HDL [Mass/Vol] 45 mg/dL >40 [facility] Comment on above: National Cholesterol Education Program (NCEP) guidelines:<40 mg/dL: Low HDL-cholesterol (major risk factor for CHD)>= 60 mg/dL: High HDL-cholesterol (negative risk factor for CHD)HDL-cholesterol is affected by a number of factors, e.g. smoking, exercise, hormones, sex and age. Serum or plasma cholesterol measurement (mass/volume)Ordered By: Alison Reyes on 10-06-2024 Cholesterol [Mass/Vol] 128 mg/dL <201 [facility] Comment on above: Cholesterol level, D esirable <200 mg/dLBorderline high cholesterol 200-239 mg/dLHigh cholesterol >=240 mg/dLRecommendations of the NCEP Adult Treatment Panel for the following risk-cutoff thresholds for the [place] population. Serum or plasma urea nitroge n measurement (mass/volume)Ordered By: Alison Reyes on 10-06-2024 Urea nitrogen [Mass/Vol] 13 mg/dL 4-19 [facility] Sodium levelOrdered By: Alison Reyes on 10-06-2024 Sodium [Moles/Vol] 140 mmol/L 133-145 [facility] T4 Free Directon 10-06-2024 T4 FREE DIRECT 1.80 ng/dL High 0.76-1.46 [facility] Comment on above: Order Comment: Order Date: 06/24/24Order Info: [id number] - CMPOrder Info: [id number] - LIPIDOrder Info: [id number] - TSHOrder Info: 7 - T4F Performed By: #### L 501.9985, L100.0100, L501.9520, L506.0400, L500.4100, L500.4050 ####[facility] [address] [place], [place], [id number] T4 freeOrdered By: Alison pitts on 10-06-2024 Free T4 [Mass/Vol] 1.80 ng/dL High 0.76-1.46 [facility] TSH DL <= 0.005 mIU/L QnOrde red By: Alison Reyes on 10-06-2024 TSH Qn 0.025 uIU/mL Low 0.300-4.200 [facility] Thyroid Stim Hormone (TSH)on 10-06-2024 TSH 0.025 uIU/mL Low 0.300-4.200 [facility] Comment on above: Order Comment: Order Date: 06/24/24Order Info: [id number] - CMPOrder Info: [id number] - LIPIDOrder Info: [id number] - TSHOrder Info: 7 - T4F Performed By: #### L 501.9985, L100.0100, L501.9520, L506.0400, L500.4100, L500.4050 ####[facility] [address] [place], [address] Total proteinOrdered By: Tim Reyes on 10-06-2024 Protein [Mass/Vol] 6.9 g/dL 5.9-8.4 [facility] Triglycerides measurementOrd ered By: Alison Reyes on 10-06-2024 Triglyceride [Mass/Vol] 154 mg/dL <199 [facility] Comment on above: The drugs N-Acetylcy steine and Metamizole may falsely depress this assay. Normal range: <150 mg/dLBorderline High: 150-199 mg/dLHigh: 200-499 mg/dLVery High: >500 mg/dL White blood cell (WBC) count Ordered By: Alison Reyes on 10-06-2024 WBC (Bld) [#/Vol] 8.3 10*3/uL 4.4-11.0 [facility] Orthopedic Visit Reporton Orthopedic Visit Report [facility] [address] [place] [address] [address] [place] [address] OFFICE VISIT Date of Service: 09/24/24 MR#: [id number] Acct: [id number] Name: [place] GOMEZ Rep #: [id number] : 1965 Provider: DARNELL blake Age/Sex: 59/M Location: [facility] [place] Status: Signed Intake Vital Signs 09/02/24 08:59 [...] the decisions made by me, DARNELL Calero 09/24/24 2271. Part of today???s visit was documented by [...] Reports ar (more content not included)... Normal [facility] Surgery Visit Reporton 09-24 Surgery Visit Report [facility] [address] [place] [address] OFFICE VISIT Date of Service: 09/24/24 MR#: [id number] Acct: [id number] Name: OK GOMEZ Rep #: [id number] : 1965 Provider: CONSTANTINE ngo Age/Sex: 59/M [...] mg PO DAILY #90 TABLETS 05/21/ 5 09/24/24 Rx tablet,extended release 24 hr [...] 3 Diagnoses Abscess of left thigh L02.416 [facility] Medical History Healing wound Wound, open, [...] Cool Signature: Date (if applicable) CC: Normal [facility] Surgery Visit Reporton 09-10 Surgery Visit Report [facility] [address] [place] [address] OFFICE VISIT Date of Service: 09/10/24 MR#: [id number] Acct: [id number] Name: OK GOMEZ Rep #: [id number] : 1965 Provider: CONSTANTINE ngo Age/Sex: 59/M Location: [facility] Status: Signed Intake Vital Signs 09/02/24 08:59 Height 5 ft 9 in Weight: 391 lb 2 oz BMI 57.7 Intake Visit Reasons: WOUND CHECK Chief Complaint: wound check Is patient in pain?: No Allergies escitalopram (From Lexapro) Adverse Reaction (Verified 09/10/24 08:06) Rash Medications [...] to his left scrotum. He went to [facility] and was placed on an additional antibiotic Keflex in conjunction with doxy. Culture demonstrated MRSA Objective Details: Left posterior thigh- improved erythema. Moderate amount of eschar noted. Minimal amount of drainage noted. Gauze dressing reapplied. Coding Level of Care Code Global Post Op Diagnoses Abscess of left thigh L02.416 [facility] Medical History Healing wound Wound, open, [...] Cool Signature: Date (if applicable) CC: Normal [facility] Culture, Anaerobic Any Sourc jolynn 09-08-2024 CUAN No anaerobic bacteri a isolated. [facility] Comment on above: Performed By: #### M 100.2000, M100.3000, M100.4001 ####[facility] [address] [place], [address] Gram Stainon 09-06-2024 GS Gram Stain 2+ Gram positive cocci 1+ White Blood Cells No Epithelial cells [facility] Comment on above: Performed By: #### M 100.2000, M100.3000, M100.4001 ####[facility] [address] [place], [address] Wound Cultureon 09-06-2024 Copy of report sent to Infection Control Printer MS#[id number] 09/06/24 0726 [facility]. Meth. resistant Staph. aureus Amount Growth 3+ [...] <=10 S Vancomycin Islt NAN <=0.5 S [facility] Comment on above: Performed By: #### M 100.2000, M100.3000, M100.4001 ####[facility] [address] [place], [address] .Auto Diffon 09-05-2024 Basophil, Absolute 0.1 10 3/mcL Normal 0.0-0.3 [facility] Comment on above: Performed By: #### C BC, ADIFF, BMP, ANEU, MDW, GFR #### [address] [address] Basophils/100 WBC (Bld) 0.7 % Normal 0.0-2.5 [facility] Comment on above: Performed By: #### C BC, ADIFF, BMP, ANEU, MDW, GFR #### [address] [address] Eosinophil, Absolute 0.3 10 3/mcL Normal 0.0-0.7 [facility] Comment on above: Performed By: #### C BC, ADIFF, BMP, ANEU, MDW, GFR #### [address] [address] Eosinophils/100 WBC (Bld) 3.4 % Normal 0.0-6.0 [facility] Comment on above: Performed By: #### C BC, ADIFF, BMP, ANEU, MDW, GFR #### [address] [address] Lymphocyte, Absolute 2.2 10 3/mcL Normal 0.9-4.3 [facility] Comment on above: Performed By: #### C BC, ADIFF, BMP, ANEU, MDW, GFR #### [address] [address] Lymphocytes/100 WBC (Bld) 23.3 % Normal 20.0-40.0 [facility] Comment on above: Performed By: #### C BC, ADIFF, BMP, ANEU, MDW, GFR #### [address] [address] Monocyte, Absolute 1.0 10 3/mcL Normal 0.1-1.4 [facility] Comment on above: Performed By: #### C BC, ADIFF, BMP, ANEU, MDW, GFR #### [address] [address] Monocytes/100 WBC (Bld) 10.5 % Normal 2.0-13.0 [facility] Comment on above: Performed By: #### C BC, ADIFF, BMP, ANEU, MDW, GFR #### [address] [address] Neutrophils/100 WBC (Bld) 62.1 % Normal 50.0-75.0 [facility] Comment on above: Performed By: #### C BC, ADIFF, BMP, ANEU, MDW, GFR #### [address] [address] .GFRon 09-05-2024 Estimated Glomerular Filtration Rate 100 ml/min/1.73sqm Normal [facility] Comment on above: Result Comment: Stages of [...] BC, ADIFF, BMP, ANEU, MDW, GFR #### [address] [address] .MDWon 09-05-2024 Monocyte Distribution Width 17.70 Normal 0.00-20.00 [facility] Comment on above: Result Comment: For ED adult patients suspected of sepsis, MDW<=20.0 does not rule out sepsis or risk of sepsis Performed By: #### C BC, ADIFF, BMP, ANEU, MDW, GFR #### [address] [address] .NEUABSon 09-05-2024 Neutrophil, Absolute 5.9 10 3/mcL Normal 2.3-8.1 [facility] Comment on above: Performed By: #### C BC, ADIFF, BMP, ANEU, MDW, GFR #### [address] [address] BMPon 09-05-2024 BUN/Creatinine Ratio 21 ratio Normal 7-27 [facility] Comment on above: Performed By: #### C BC, ADIFF, BMP, ANEU, MDW, GFR #### [address] [address] Calcium [Mass/Vol] 9.5 mg/dL Normal 8.4-10.2 [facility] Comment on above: Performed By: #### C BC, ADIFF, BMP, ANEU, MDW, GFR #### [address] [address] Chloride [Moles/Vol] 104 mmol/L Normal 98-107 [facility] Comment on above: Performed By: #### C BC, ADIFF, BMP, ANEU, MDW, GFR #### [address] [address] CO2 [Moles/Vol] 23 mmol/L Normal 22-29 [facility] Comment on above: Performed By: #### C BC, ADIFF, BMP, ANEU, MDW, GFR #### [address] [address] Creatinine [Mass/Vol] 0.89 mg/dL Normal 0.67-1.17 [facility] Comment on above: Performed By: #### C BC, ADIFF, BMP, ANEU, MDW, GFR #### [address] [address] Electrolyte Balance 11.0 mEq/L Normal 4.0-15.0 [facility] Comment on above: Performed By: #### C BC, ADIFF, BMP, ANEU, MDW, GFR #### [address] [address] Glucose [Mass/Vol] 117 mg/dL High 70-105 [facility] Comment on above: Performed By: #### C BC, ADIFF, BMP, ANEU, MDW, GFR #### [address] [address] Potassium [Moles/Vol] 4.5 mmol/L Normal 3.5-5.1 [facility] Comment on above: Performed By: #### C BC, ADIFF, BMP, ANEU, MDW, GFR #### [place] [address] Sodium [Moles/Vol] 138 mmol/L Normal 136-145 [facility] Comment on above: Performed By: #### C BC, ADIFF, BMP, ANEU, MDW, GFR #### [place] [address] Urea nitrogen [Mass/Vol] 19 mg/dL High 7-18 [facility] Comment on above: Performed By: #### C BC, ADIFF, BMP, ANEU, MDW, GFR #### [address] [address] CBCon 09-05-2024 Erythrocyte distribution width (RBC) [Ratio] 12.7 % Normal 11.5-15.5 [facility] Comment on above: Performed By: #### C BC, ADIFF, BMP, ANEU, MDW, GFR #### [address] [address] Hematocrit (Bld) [Volume fraction] 39.7 % Low 40.0-52.0 [facility] Comment on above: Performed By: #### C BC, ADIFF, BMP, ANEU, MDW, GFR #### [address] [address] Hgb 13.5 G/dL Normal 13.0-17.5 [facility] Comment on above: Performed By: #### C BC, ADIFF, BMP, ANEU, MDW, GFR #### [address] [address] MCH (RBC) [Entitic mass] 30.6 pg Normal 27.0-33.0 [facility] Comment on above: Performed By: #### C BC, ADIFF, BMP, ANEU, MDW, GFR #### [address] [address] MCHC 33.9 G/dL Normal 32.0-36.0 [facility] Comment on above: Performed By: #### C BC, ADIFF, BMP, ANEU, MDW, GFR #### [address] [address] MCV (RBC) [Entitic vol] 90.4 fL Normal 81.0-100.0 [facility] Comment on above: Performed By: #### C BC, ADIFF, BMP, ANEU, MDW, GFR #### [address] [address] Platelet 288 10 3/mcL Normal 150-450 [facility] Comment on above: Performed By: #### C BC, ADIFF, BMP, ANEU, MDW, GFR #### [address] [address] Platelet mean volume (Bld) [Entitic vol] 8.3 fL Normal 6.4-10.5 [facility] Comment on above: Performed By: #### C BC, ADIFF, BMP, ANEU, MDW, GFR #### [address] [address] RBC 4.40 10 6/mcL Low 4.50-6.00 [facility] Comment on above: Performed By: #### C BC, ADIFF, BMP, ANEU, MDW, GFR #### [address] [address] WBC 9.5 10 3/mcL Normal 4.5-10.8 [facility] Comment on above: Performed By: #### C BC, ADIFF, BMP, ANEU, MDW, GFR #### [address] [address] [address] ABD/PELVIS W/ IV CONTRAST ONLYon 09-05-2024 [...] 09/05/2024 10:24:56 PM Ordering Provider: MELO Daniels [facility] LABORATORYOrdered By: SYSTEM SYSTEM on 09-05-2024 Basophils [...] Nom (Unsp spec) No anaerobic bacteria isolated. [facility] Gram stainOrdered By: Edna Garcia on 09-04-2024 Microscopic observation Gram stain Nom (Unsp spec) [facility] Routine wound cultureOrdered By: Edna Garcia on 09-04-2024 Microbial culture, routine Meth. resistant Staph. aureus Abnormal [facility] Surgery Visit Reporton 09-03 Surgery Visit Report [facility] [address] [place] [address] OFFICE VISIT Date of Service: 09/03/24 MR#: [id number] Acct: [id number] Name: OK GOMEZ Rep #: [id number] : 1965 Provider: CONSTANTINE ngo Age/Sex: 59/M Location: [facility] Status: Signed Intake Vital Signs 08/31/24 08:44 09/02/24 08:59 Height 5 ft 9 in 5 ft 9 in Weight: 391 lb 2 oz BMI 57.7 Intake Visit Reasons: THIGH ABSCESS Chief Complaint: thigh cyst/abcess Is patient in pain?: No Allergies escitalopram (From [employer]) Adverse Reaction (Verified 09/03/24 13:45) Rash Medications [...] mg tablet 10 mg PO QDAY 03/09/24 09/03/24 Hi story buspirone 10 mg tablet 10 [...] of surrou (more content not included)... Normal [facility] Knee 4 or More Viewson 09-02 Knee 4 or More Views [facility] [address] [place] [address] Knee 4 or More Views MR#: [id number] Acct: [id number] Name: OK GOMEZ Rep #: [id number] : 1965 M 59 From: Favian Bridges MD PCP: Dr. Alison Reyes MD Status: DEP AMB Study: Knee 4 or More Views Date of Exam: 09/02/24 Exam# [id number] Ordering Dr: Juani Turcios EXAM: XR Right Knee Complete, 4 or [...] 2. Postoperative changes as above. Reading Location[facility] CC: DARNELL Turcios; Dr. Alison Reyes MD Telephonic Case Manager: Signed Normal [facility] Orthopedic Visit Reporton Orthopedic Visit Report [facility] [address] [place] [address] [address] [place], [place] [address] OFFICE VISIT Date of Service: 09/02/24 MR#: [id number] Acct: [id number] Name: OK GOMEZ Rep #: [id number] : 1965 Provider: DARNELL blake Age/Sex: 59/M Location: [facility] Status: Signed Intake Vital Signs 07/28/24 13:14 [...] Pain scale (1-10): 7 Allergies escitalopram (From [employer]) Adverse Reaction (Verified 09/02/24 08:01) Rash Medications [...] provided and the decisions made by me, SE [employer] 09/02/24 0750. Part of today???s visit was documented by [...] popping s (more content not included)... Normal [facility] Surgery Visit Reporton 07-28 Surgery Visit Report [facility] [address] [facility] [place] [address] OFFICE VISIT Date of Service: 07/28/24 MR#: [id number] Acct: [id number] Name: OK GOMEZ Rep #: [id number] : 1965 Provider: CONSTANTINE ngo Age/Sex: 59/M [...] mg PO DAILY #90 TABLETS 05/21/ 5 07/28/24 Rx tablet,extended release 24 hr [...] No gallblad (more content not included)... Normal [facility] Shoulder min 2 Viewson 06-24 Shoulder min 2 Views [facility] [address] [place] [address] Shoulder min 2 Views MR#: [id number] Acct: [id number] Name: OK GOMEZ Rep #: [id number] : 1965 M 59 From: Jim Pulliam PCP: Dr. Alison Reyes MD Status: REG CLI Study: Shoulder min 2 Views Date of Exam: 06/24/24 Exam# [id number] Ordering Dr: Alison Reyes MD PROCEDURE: SHOULDER MIN 2 VIEWS REASON FOR EXAM: Pain. TECHNIQUE: Five view right shoulder series COMPARISON: None. RAD/Shoulder min 2 Views IMPRESSION: Mild degenerative changes are seen of the right acromioclavicular joint. The right glenohumeral joint demonstrates minimal degenerative changes, without apparent joint narrowing. Satisfactory alignment is seen. No fracture or other significant abnormality is identified Reading Location: [address] CC: Dr. Alison Reyes MD Telephonic Case Manager: Signed Normal [facility] Orthopedic Visit Reporton Orthopedic Visit Report [facility] [address] [place] [address] OFFICE VISIT Date of Service: 06/15/24 MR#: [id number] Acct: [id number] Name: OK GOMEZ Rep #: [id number] : 1965 Provider: Dr. Haresh josue DO Age/Sex: 59/M Location: [facility] Status: Signed Intake Vital Signs 05/15/24 17:18 [...] Code No Charge 06/10/24 1343 Date Haresh Petty Signature: Date (if applicable) CC: Normal [facility] XR KNEE THREE VIEWS LEFTon 0 [...] 06/05/2024 1:12:00 AM Ordering Provider: TYRELL ESQUEDA [facility] Surgery Visit Reporton 06-03 Surgery Visit Report [facility] [address] [place] [address]. [address] [place] [address] OFFICE VISIT Date of Service: 06/03/24 MR#: [id number] Acct: [id number] Name: OK GOMEZ Rep #: [id number] : 1965 Provider: CONSTANTINE ngo Age/Sex: 59/M [...] 03/09/2406/03 History unit/mL (3 mL) subcutaneous pen ([employer] Max U-300 SoloStar) levothyroxine 300 mcg tablet [...] mg PO DAILY #90 TABLETS 05/21/ 5 06/03/24 Rx tablet,extended release 24 hr doxycycline hyclate 100 mg tablet 100 mg PO BID 10 days #20 tabs Rx [facility] Medical History Morbid obesity Hyperlipidemia Supraventricular [...] clots Ex (more content not included)... Normal [facility] Absolute lymphocyte countOrd ered By: Alison Reyes on 05-19-2024 Lymphocytes Auto (Unsp spec) [#/Vol] 2.35 10*3/uL 0.83-4.51 [facility] Absolute neutrophil countOrd ered By: Alison Reyes on 05-19-2024 Neutrophils (Bld) [#/Vol] 4.4 10*3/uL 2.0-7.7 [facility] Albumin to globulin ratioOrd ered By: Alison Reyes on 05-19-2024 Albumin/Globulin [Mass ratio] 0.9 {ratio} 0.9-2.4 [facility] Automated lymphocyte count a s percentage of total leukocytesOrdered By: Alison Reyes on 05-19-2024 Lymphocytes/100 WBC Auto (Unsp spec) 30.6 % 19-41 [facility] Basophil percentageOrdered B y: Alison Reyes on 05-19-2024 Basophils/100 WBC (Bld) 0.7 % 0-1 [facility] Bilirubin, totalOrdered By: Alison Reyes on 05-19-2024 Bilirubin [Mass/Vol] 0.40 mg/dL 0.20-1.00 [facility] Comment on above: For patients on eltr ombopag therapy, use of Dimension [place] TBIL is not recommended. Blood urea nitrogen (BUN)/cr eatinine ratioOrdered By: Alison Reyes on 05-19-2024 Urea nitrogen/Creatinine [Mass ratio] 18.7 mg/mg 10-20 [facility] CBC W/Diff, Automatedon 04-23 Absolute Lymph 2.35 X10 3/uL Normal 0.83-4.51 [facility] Comment on above: Order Comment: Order Date: 05/19/24Order Info: 0184-1 - CBCD Performed By: #### L 500.4050, L100.0100, L501.9520, L501.9910, L501.9985, L501.5200, L500.4100 ####[facility] [address] [place], [address] Absolute Neut 4.4 X10 3/uL Normal 2.0-7.7 [facility] Comment on above: Order Comment: Order Date: 05/19/24Order Info: 0184-1 - CBCD Performed By: #### L 500.4050, L100.0100, L501.9520, L501.9910, L501.9985, L501.5200, L500.4100 ####[facility] [address] [place], [address] Basophils/100 WBC (Bld) 0.7 % Normal 0-1 [facility] Comment on above: Order Comment: Order Date: 05/19/24Order Info: 0184-1 - CBCD Performed By: #### L 500.4050, L100.0100, L501.9520, L501.9910, L501.9985, L501.5200, L500.4100 ####[facility] [address] [place], [address] Eosinophils/100 WBC (Bld) 3.8 % Normal 0-5 [facility] Comment on above: Order Comment: Order Date: 05/19/24Order Info: 0184-1 - CBCD Performed By: #### L 500.4050, L100.0100, L501.9520, L501.9910, L501.9985, L501.5200, L500.4100 ####[facility] [address] [place], [address] Erythrocyte distribution width (RBC) [Ratio] 12.8 % Normal 11.6-14.6 [facility] Comment on above: Order Comment: Order Date: 05/19/24Order Info: 0184-1 - CBCD Performed By: #### L 500.4050, L100.0100, L501.9520, L501.9910, L501.9985, L501.5200, L500.4100 ####[facility] [address] [place], [address] Hematocrit (Bld) [Volume fraction] 45.5 % Normal 40-54 [facility] Comment on above: Order Comment: Order Date: 05/19/24Order Info: 0184-1 - CBCD Performed By: #### L 500.4050, L100.0100, L501.9520, L501.9910, L501.9985, L501.5200, L500.4100 ####[facility] [address] [place], [address] Hemoglobin (Bld) [Mass/Vol] 14.7 g/dL Normal 13.0-16.5 [facility] Comment on above: Order Comment: Order Date: 05/19/24Order Info: 0184-1 - CBCD Performed By: #### L 500.4050, L100.0100, L501.9520, L501.9910, L501.9985, L501.5200, L500.4100 ####[facility] [address] [place], [address] IG% 0.300 Normal 0.0-0.9 [facility] Comment on above: Order Comment: Order Date: 05/19/24Order Info: 0184-1 - CBCD Result Comment: IG% - Immature Granulocytes (promyelocytes, myelocytes and metamyelocytes) > 1% indicates that a LEFT SHIFT is Present. Performed By: #### L 500.4050, L100.0100, L501.9520, L501.9910, L501.9985, L501.5200, L500.4100 ####[facility] [address] [place], [address] Lymphocytes/100 WBC (Bld) 30.6 % Normal 19-41 [facility] Comment on above: Order Comment: Order Date: 05/19/24Order Info: 0184-1 - CBCD Performed By: #### L 500.4050, L100.0100, L501.9520, L501.9910, L501.9985, L501.5200, L500.4100 ####[facility] [address] [place], [address] MCH (RBC) [Entitic mass] 29.6 pg Normal 27.0-32.0 [facility] Comment on above: Order Comment: Order Date: 05/19/24Order Info: 0184-1 - CBCD Performed By: #### L 500.4050, L100.0100, L501.9520, L501.9910, L501.9985, L501.5200, L500.4100 ####[facility] [address] [place], [address] MCHC (RBC) [Mass/Vol] 32.3 g/dL Normal 32-36 [facility] Comment on above: Order Comment: Order Date: 05/19/24Order Info: 0184-1 - CBCD Performed By: #### L 500.4050, L100.0100, L501.9520, L501.9910, L501.9985, L501.5200, L500.4100 ####[facility] [address] [place], [address] MCV (RBC) [Entitic vol] 91.5 fL Normal 80-94 [facility] Comment on above: Order Comment: Order Date: 05/19/24Order Info: 0184-1 - CBCD Performed By: #### L 500.4050, L100.0100, L501.9520, L501.9910, L501.9985, L501.5200, L500.4100 ####[facility] [address] [place], [address] Monocytes/100 WBC (Bld) 7.9 % Normal 0-10 [facility] Comment on above: Order Comment: Order Date: 05/19/24Order Info: 0184-1 - CBCD Performed By: #### L 500.4050, L100.0100, L501.9520, L501.9910, L501.9985, L501.5200, L500.4100 ####[facility] [address] [place], [address] Neutrophils/100 WBC (Bld) 56.7 % Normal 47-70 [facility] Comment on above: Order Comment: Order Date: 05/19/24Order Info: 0184-1 - CBCD Performed By: #### L 500.4050, L100.0100, L501.9520, L501.9910, L501.9985, L501.5200, L500.4100 ####[facility] [address] [place], [address] Nucleated RBC (Bld) [#/Vol] 0 10*3/uL Normal 0-5 [facility] Comment on above: Order Comment: Order Date: 05/19/24Order Info: 0184-1 - CBCD Performed By: #### L 500.4050, L100.0100, L501.9520, L501.9910, L501.9985, L501.5200, L500.4100 ####[facility] [address] [place], [address] Platelet mean volume (Bld) [Entitic vol] 10.8 fL Normal 6.2-12.0 [facility] Comment on above: Order Comment: Order Date: 05/19/24Order Info: 0184-1 - CBCD Performed By: #### L 500.4050, L100.0100, L501.9520, L501.9910, L501.9985, L501.5200, L500.4100 ####[facility] [address] [place], [address] Platelets (Bld) [#/Vol] 270 10*3/uL Normal 150-450 [facility] Comment on above: Order Comment: Order Date: 05/19/24Order Info: 0184-1 - CBCD Performed By: #### L 500.4050, L100.0100, L501.9520, L501.9910, L501.9985, L501.5200, L500.4100 ####[facility] [address] [place], [address] RBC (Bld) [#/Vol] 4.97 10*6/uL Normal 4.6-6.2 [facility] Comment on above: Order Comment: Order Date: 05/19/24Order Info: 0184-1 - CBCD Performed By: #### L 500.4050, L100.0100, L501.9520, L501.9910, L501.9985, L501.5200, L500.4100 ####[facility] [address] [place], [place], [phone](440) RDW SD 42.9 fl Normal 35.1-43.9 [facility] Comment on above: Order Comment: Order Date: 05/19/24Order Info: 0184-1 - CBCD Performed By: #### L 500.4050, L100.0100, L501.9520, L501.9910, L501.9985, L501.5200, L500.4100 ####[facility] [address] [place], [address] WBC (Bld) [#/Vol] 7.7 10*3/uL Normal 4.4-11.0 [facility] Comment on above: Order Comment: Order Date: 05/19/24Order Info: 0184-1 - CBCD Performed By: #### L 500.4050, L100.0100, L501.9520, L501.9910, L501.9985, L501.5200, L500.4100 ####[facility] [address] [place], [place], [id number] Carbon dioxide measurementOr dered By: Alison Reyes on 05-19-2024 CO2 [Moles/Vol] 23.0 mmol/L 21.0-32.0 [facility] Chloride measurementOrdered By: Alison Reyes on 05-19-2024 Chloride [Moles/Vol] 105 mmol/L 98-107 [facility] Comprehensive Metabolic Prof ilon 05-19-2024 Albumin [Mass/Vol] 3.6 g/dL Normal 3.2-5.0 [facility] Comment on above: Order Comment: Order Date: 05/19/24Order Info: 86- - CMPOrder Info: - LIPIDOrder Info: [id number] - MGOrder Info: [id number] - TSHOrder Info: [id number] - PSA Performed By: #### L 500.4050, L100.0100, L501.9520, L501.9910, L501.9985, L501.5200, L500.4100 ####[facility] [address] [place], [place], [address] Albumin/Globulin [Mass ratio] 0.9 {ratio} Normal 0.9-2.4 [facility] Comment on above: Order Comment: Order Date: 05/19/24Order Info: [id number] - CMPOrder Info: - LIPIDOrder Info: [id number] - MGOrder Info: [id number] - TSHOrder Info: [id number] - PSA Performed By: #### L 500.4050, L100.0100, L501.9520, L501.9910, L501.9985, L501.5200, L500.4100 ####[facility] [address] [place], [place], [address] ALK P 119 U/L High 45-117 [facility] Comment on above: Order Comment: Order Date: 05/19/24Order Info: 785- - CMPOrder Info: [id number] - LIPIDOrder Info: [id number] - MGOrder Info: [id number] - TSHOrder Info: [id number] - PSA Performed By: #### L 500.4050, L100.0100, L501.9520, L501.9910, L501.9985, L501.5200, L500.4100 ####[facility] [address] [place], [address] ALT [Catalytic activity/Vol] 39 U/L Normal 16-61 [facility] Comment on above: Order Comment: Order Date: 05/19/24Order Info: [id number] - CMPOrder Info: [id number] - LIPIDOrder Info: [id number] - MGOrder Info: [id number] - TSHOrder Info: [id number] - PSA Performed By: #### L 500.4050, L100.0100, L501.9520, L501.9910, L501.9985, L501.5200, L500.4100 ####[facility] [address] [place], [place], [phone] AST [Catalytic activity/Vol] 28 U/L Normal 15-37 [facility] Comment on above: Order Comment: Order Date: 05/19/24Order Info: 86-1 - CMPOrder Info: [id number] - LIPIDOrder Info: [id number] - MGOrder Info: 3 - TSHOrder Info: [id number] - PSA Performed By: #### L 500.4050, L100.0100, L501.9520, L501.9910, L501.9985, L501.5200, L500.4100 ####[facility] [address] [place], [place], [id number] Bilirubin [Mass/Vol] 0.40 mg/dL Normal 0.20-1.00 [facility] Comment on above: Order Comment: Order Date: 05/19/24Order Info: 86-1 - CMPOrder Info: [id number] - LIPIDOrder Info: [id number] - MGOrder Info: 3 - TSHOrder Info: [id number] - PSA Result Comment: For patients on eltrombopag therapy, use of [employer] [place] TBIL is not recommended. Performed By: #### L 500.4050, L100.0100, L501.9520, L501.9910, L501.9985, L501.5200, L500.4100 ####[facility] [address] [place], [address] BUN/CRE 18.7 RATIO Normal 10-20 [facility] Comment on above: Order Comment: Order Date: 05/19/24Order Info: [id number] - CMPOrder Info: [id number] - LIPIDOrder Info: [id number] - MGOrder Info: 3016-3 - TSHOrder Info: 2857-1 - PSA Performed By: #### L 500.4050, L100.0100, L501.9520, L501.9910, L501.9985, L501.5200, L500.4100 ####[facility] [address] [place], [address] CA,Total 9.6 mg/dL Normal 8.5-10.1 [facility] Comment on above: Order Comment: Order Date: 05/19/24Order Info: 86-1 - CMPOrder Info: [id number] - LIPIDOrder Info: [id number] - MGOrder Info: 3016-3 - TSHOrder Info: 2857-1 - PSA Performed By: #### L 500.4050, L100.0100, L501.9520, L501.9910, L501.9985, L501.5200, L500.4100 ####[facility] [address] [place], [address] Chloride [Moles/Vol] 105 mmol/L Normal 98-107 [facility] Comment on above: Order Comment: Order Date: 05/19/24Order Info: 0786-1 - CMPOrder Info: [id number] - LIPIDOrder Info: [id number] - MGOrder Info: 3016-3 - TSHOrder Info: 2857-1 - PSA Performed By: #### L 500.4050, L100.0100, L501.9520, L501.9910, L501.9985, L501.5200, L500.4100 ####[facility] [address] [place], [place], [id number] CO2 [Moles/Vol] 23.0 mmol/L Normal 21.0-32.0 [facility] Comment on above: Order Comment: Order Date: 05/19/24Order Info: 86-1 - CMPOrder Info: [id number] - LIPIDOrder Info: [id number] - MGOrder Info: [id number] - TSHOrder Info: 2851 - PSA Performed By: #### L 500.4050, L100.0100, L501.9520, L501.9910, L501.9985, L501.5200, L500.4100 ####[facility] [address] [place], [place], [address] Creatinine [Mass/Vol] 0.91 mg/dL Normal 0.70-1.30 [facility] Comment on above: Order Comment: Order Date: 05/19/24Order Info: [id number] - CMPOrder Info: - LIPIDOrder Info: [id number] - MGOrder Info: 3015-06 - TSHOrder Info: 2856-04 - PSA Result Comment: The validity of the calculated GFR GFRAA in patients over 70 years has not been determined. Clinical correlation is essential. Performed By: #### L 500.4050, L100.0100, L501.9520, L501.9910, L501.9985, L501.5200, L500.4100 ####[facility] [address] [place], [place], [address] EST GFR - AA 111 mL/min Normal >60 [facility] Comment on above: Order Comment: Order Date: 05/19/24Order Info: [id number] - CMPOrder Info: - LIPIDOrder Info: [id number] - MGOrder Info: 3 - TSHOrder Info: 2857-1 - PSA Result Comment: Afri can Citizen [place] GFR Calc Performed By: #### L 500.4050, L100.0100, L501.9520, L501.9910, L501.9985, L501.5200, L500.4100 ####[facility] [address] [place], [address] GAP 8 Normal 5-15 [facility] Comment on above: Order Comment: Order Date: 05/19/24Order Info: 785- - CMPOrder Info: [id number] - LIPIDOrder Info: [id number] - MGOrder Info: 3 - TSHOrder Info: [id number] - PSA Performed By: #### L 500.4050, L100.0100, L501.9520, L501.9910, L501.9985, L501.5200, L500.4100 ####[facility] [address] [place], [place], [id number] GFR/1.73 sq M.predicted among non-blacks MDRD (S/P/Bld) [Vol rate/Area] 92 mL/min/{1.73_m2} Normal >60 [facility] Comment on above: Order Comment: Order Date: 05/19/24Order Info: [id number] - CMPOrder Info: - LIPIDOrder Info: [id number] - MGOrder Info: [id number] - TSHOrder Info: [id number] - PSA Result Comment: Non- GFR Calc Performed By: #### L 500.4050, L100.0100, L501.9520, L501.9910, L501.9985, L501.5200, L500.4100 ####[facility] [address] [place], [address] Globulin (S) [Mass/Vol] 4.1 g/dL Normal 2.2-4.2 [facility] Comment on above: Order Comment: Order Date: 05/19/24Order Info: [id number] - CMPOrder Info: - LIPIDOrder Info: [id number] - MGOrder Info: [id number] - TSHOrder Info: [id number] - PSA Performed By: #### L 500.4050, L100.0100, L501.9520, L501.9910, L501.9985, L501.5200, L500.4100 ####[facility] [address] [place], [address] Glucose [Mass/Vol] 150 mg/dL High 74-106 [facility] Comment on above: Order Comment: Order Date: 05/19/24Order Info: 86-1 - CMPOrder Info: [id number] - LIPIDOrder Info: [id number] - MGOrder Info: 3 - TSHOrder Info: 285- - PSA Result Comment: Fast ing Glucose result greater than or equal to 126 mg/dL suggests DIABETES MELLITUS per A.D.A. criteria. Performed By: #### L 500.4050, L100.0100, L501.9520, L501.9910, L501.9985, L501.5200, L500.4100 ####[facility] [address] [place], [address] Potassium [Moles/Vol] 4.3 mmol/L Normal 3.5-5.1 [facility] Comment on above: Order Comment: Order Date: 05/19/24Order Info: 785- - CMPOrder Info: [id number] - LIPIDOrder Info: [id number] - MGOrder Info: [id number] - TSHOrder Info: 285- - PSA Performed By: #### L 500.4050, L100.0100, L501.9520, L501.9910, L501.9985, L501.5200, L500.4100 ####[facility] [address] [place], [address] Sodium [Moles/Vol] 136 mmol/L Normal 136-145 [facility] Comment on above: Order Comment: Order Date: 05/19/24Order Info: 86-1 - CMPOrder Info: [id number] - LIPIDOrder Info: [id number] - MGOrder Info: 3015-3 - TSHOrder Info: 2857 - PSA Performed By: #### L 500.4050, L100.0100, L501.9520, L501.9910, L501.9985, L501.5200, L500.4100 ####[facility] [address] [place], [address] T PROT 7.7 g/dL Normal 6.4-8.2 [facility] Comment on above: Order Comment: Order Date: 05/19/24Order Info: 0786- - CMPOrder Info: - LIPIDOrder Info: [id number] - MGOrder Info: [id number] - TSHOrder Info: [id number] - PSA Performed By: #### L 500.4050, L100.0100, L501.9520, L501.9910, L501.9985, L501.5200, L500.4100 ####[facility] [address] [place], [place], [address] Urea nitrogen [Mass/Vol] 17 mg/dL Normal 7-18 [facility] Comment on above: Order Comment: Order Date: 05/19/24Order Info: 07 - CMPOrder Info: - LIPIDOrder Info: [id number] - MGOrder Info: [id number] - TSHOrder Info: [id number] - PSA Performed By: #### L 500.4050, L100.0100, L501.9520, L501.9910, L501.9985, L501.5200, L500.4100 ####[facility] [address] [place], [place], [address] Eosinophil percentageOrdered By: Alison Reyes on 05-19-2024 Eosinophils/100 WBC (Bld) 3.8 % 0-5 [facility] Erythrocyte distribution wid th ratioOrdered By: Alison Reyes on 05-19-2024 Erythrocyte distribution width (RBC) [Ratio] 12.8 % 11.6-14.6 [facility] Erythrocyte distribution wid th standard deviationOrdered By: Alison Reyes on 05-19-2024 Erythrocyte distribution width (RBC) [Entitic vol] 42.9 fL 35.1-43.9 [facility] Erythrocyte distribution width (RBC) [Ratio] 42.9 fl 35.1-43.9 [facility] Estimated glomerular filtrat ion rate (GFR) AmericanOrdered By: Alison Reyes on 05-19-2024 Estimated GFR (MDRD) Amer 111 mL/min >60 [facility] Comment on above: GFR Calc Glomerular filtration rate ( GFR) estimationOrdered By: Alison Reyes on 05-19-2024 Estimated GFR (MDRD) Non-Af Amer 92 mL/min >60 [facility] Comment on above: Non- GFR Calc GFR/1.73 sq M.predicted among non-blacks MDRD (S/P/Bld) [Vol rate/Area] 92 mL/min/{1.73_m2} >60 [facility] Comment on above: Non- GFR Calc Glucose measurementOrdered B y: Alison Reyes on 05-19-2024 Glucose [Mass/Vol] 150 mg/dL High 74-106 [facility] Comment on above: Fasting Glucose resu lt greater than or equal to 126 mg/dL suggests DIABETES MELLITUS per A.D.A. criteria. Hematocrit Auto (Bld) [Volum e fraction]Ordered By: Alison Reyes on 05-19-2024 Hematocrit (Bld) [Volume fraction] 45.5 % 40-54 [facility] Hemoglobin A1con 05-19-2024 HbA1c (Bld) [Mass fraction] 7.7 % High 3.8-5.6 [facility] Comment on above: Order Comment: Order Date: 05/19/24Order Info: [id number] - A1C Result Comment: Norm al < 5.7 % Prediabetic 5.7 - 6.4 % Diabetic >or= 6.5 % Please note range changes. Performed By: #### L 500.4050, L100.0100, L501.9520, L501.9910, L501.9985, L501.5200, L500.4100 ####[facility] [address] [place], [address] Hemoglobin A1c percentageOrd ered By: Alison Reyes on 05-19-2024 HbA1c (Bld) [Mass fraction] 7.7 % High 3.8-5.6 [facility] Comment on above: Normal < 5.7 % Predi abetic 5.7 - 6.4 % Diabetic >or= 6.5 % Please note range changes. Hemoglobin measurementOrdere d By: Alison Reyes on 05-19-2024 Hemoglobin (Bld) [Mass/Vol] 14.7 g/dL 13.0-16.5 [facility] High density lipoprotein (HD L) measurementOrdered By: Alison Reyes on 05-19-2024 Cholesterol in HDL [Mass/Vol] 56 mg/dL >40 [facility] Comment on above: The drugs N-Acetylcy steine and Metamizole may falsely depress this assay. Reference Range HDL <40 mg/dL Low HDL Cholesterol HDL >or= 60 mg/dL High HDL Cholesterol Immature granulocytes/100 WB C Auto (Bld)Ordered By: Alison Reyes on 05-19-2024 Immature granulocytes/100 WBC (Bld) 0.300 % 0.0-0.9 [facility] Comment on above: IG% - Immature Granu locytes (promyelocytes, myelocytes and metamyelocytes) > 1% indicates that a LEFT SHIFT is Present. Laboratory - Chemistry and C hemistry - challengeOrdered By: Alison Reyes on 05-19-2024 AST [Catalytic activity/Vol] 28 U/L 15-37 [facility] Lipid Profileon 05-19-2024 Cholesterol [Mass/Vol] 160 mg/dL Normal 200 [facility] Comment on above: Order Comment: Order Date: 05/19/24Order Info: [id number] - CMPOrder Info: [id number] - LIPIDOrder Info: [id number] - MGOrder Info: 3016-3 - TSHOrder Info: 2857-1 - PSA Result Comment: <200 mg/dL Desirable 200-240 mg/dL Borderline >240 mg/dL High Risk Performed By: #### L 500.4050, L100.0100, L501.9520, L501.9910, L501.9985, L501.5200, L500.4100 ####[facility] [address] [place], [address] Cholesterol in HDL [Mass/Vol] 56 mg/dL Normal [facility] Comment on above: Order Comment: Order Date: 05/19/24Order Info: [id number] - CMPOrder Info: [id number] - LIPIDOrder Info: [id number] - MGOrder Info: 3 - TSHOrder Info: 2857-1 - PSA Result Comment: The drugs N-Acetylcysteine and Metamizole may falsely depress this assay. Reference Range HDL <40 mg/dL Low HDL Cholesterol HDL >or= 60 mg/dL High HDL Cholesterol Performed By: #### L 500.4050, L100.0100, L501.9520, L501.9910, L501.9985, L501.5200, L500.4100 ####[facility] [address] [place], [address] Cholesterol in LDL [Mass/Vol] 61 mg/dL Normal 0-130 [facility] Comment on above: Order Comment: Order Date: 05/19/24Order Info: 86-1 - CMPOrder Info: [id number] - LIPIDOrder Info: [id number] - MGOrder Info: [id number] - TSHOrder Info: 7-1 - PSA Performed By: #### L 500.4050, L100.0100, L501.9520, L501.9910, L501.9985, L501.5200, L500.4100 ####[facility] [address] [place], [address] Cholesterol in VLDL [Mass/Vol] 43 mg/dL High 5-40 [facility] Comment on above: Order Comment: Order Date: 05/19/24Order Info: [id number] - CMPOrder Info: [id number] - LIPIDOrder Info: [id number] - MGOrder Info: 3 - TSHOrder Info: 2857-1 - PSA Performed By: #### L 500.4050, L100.0100, L501.9520, L501.9910, L501.9985, L501.5200, L500.4100 ####[facility] [address] [place], [address] Triglyceride [Mass/Vol] 213 mg/dL High [facility] Comment on above: Order Comment: Order Date: 05/19/24Order Info: 0786- - CMPOrder Info: [id number] - LIPIDOrder Info: [id number] - MGOrder Info: 3 - TSHOrder Info: [id number] - PSA Result Comment: The drugs N-Acetylcysteine and Metamizole may falsely depress this assay. Serum Triglycerides Reference Interval Normal <150 mg/dL Borderline high 150 - 199 mg/dL High 200 - 499 mg/dL Very High > or = 500 mg/dL Performed By: #### L 500.4050, L100.0100, L501.9520, L501.9910, L501.9985, L501.5200, L500.4100 ####[facility] [address] [place], [address] Low density lipoprotein (LDL ) cholesterol measurementOrdered By: Alison Reyes on 05-19-2024 Cholesterol in LDL [Mass/Vol] 61 mg/dL 0-130 [facility] Lymphocytes Auto (Unsp spec) [#/Vol]Ordered By: Alison Reyes on 05-19-2024 Lymphocytes (Bld) [#/Vol] 2.35 10*3/uL 0.83-4.51 [facility] Lymphocytes/100 WBC Auto (Un sp spec)Ordered By: Alison Reyes on 05-19-2024 Lymphocytes/100 WBC (Bld) 30.6 % 19-41 [facility] MCV (mean corpuscular volume ) determinationOrdered By: Alison Reyes on 05-19-2024 MCV (RBC) [Entitic vol] 91.5 fL 80-94 [facility] Magnesiumon 05-19-2024 Magnesium [Mass/Vol] 2.2 mg/dL Normal 1.6-2.6 [facility] Comment on above: Order Comment: Order Date: 05/19/24Order Info: [id number] - CMPOrder Info: [id number] - LIPIDOrder Info: - MGOrder Info: [id number] - TSHOrder Info: 2856-04 - PSA Performed By: #### L 500.4050, L100.0100, L501.9564, L501.9957, L501.9927, L501.0900, L500.6180 ####[facility] [address] [place], [address] Magnesium measurementOrdered By: Alison Reyes on 05-19-2024 Magnesium [Mass/Vol] 2.2 mg/dL 1.6-2.6 [facility] Mean corpuscular hemoglobin (MCH) determinationOrdered By: Alison Reyes on 05-19-2024 MCH (RBC) [Entitic mass] 29.6 pg 27.0-32.0 [facility] Mean corpuscular hemoglobin concentration (MCHC) determinationOrdered By: Alison Reyes on 05-19-2024 MCHC (RBC) [Mass/Vol] 32.3 g/dL 32-36 [facility] Mean platelet volume determi nationOrdered By: Alison Reyes on 05-19-2024 Platelet mean volume (Bld) [Entitic vol] 10.8 fL 6.2-12.0 [facility] Monocyte percentageOrdered B y: Alison Reyes on 05-19-2024 Monocytes/100 WBC (Bld) 7.9 % 0-10 [facility] Neutrophil percentageOrdered By: Alison Reyes on 05-19-2024 Neutrophils/100 WBC (Bld) 56.7 % 47-70 [facility] Nucleated red blood cell per centageOrdered By: Alison Reyes on 05-19-2024 Nucleated RBC/100 WBC (Bld) [Ratio] 0 % 0-5 [facility] PSA,Total - Annual Screenon 05-19-2024 PSA,TOT SCREEN 0.20 ng/mL Normal 0.00-4.00 [facility] Comment on above: Order Comment: Order Date: 05/19/24Order Info: [id number] - CMPOrder Info: [id number] - LIPIDOrder Info: [id number] - MGOrder Info: [id number] - TSHOrder Info: 2857-1 - PSA Result Comment: This test was performed using the TPSA assay method for the [employer] chemistry system. Values obtained with different assay methods cannot be used interchangably. When changing PSA assays in the course of monitoring a patient, additional sequential testing should be carried out to confirm baseline values. Performed By: #### L 500.4050, L100.0100, L501.9520, L501.9910, L501.9985, L501.5200, L500.4100 ####[facility] [address] [place], [address] Platelet countOrdered By: Sarah Reyes on 05-19-2024 Platelets (Bld) [#/Vol] 270 10*3/uL 150-450 [facility] Potassium measurementOrdered By: Alison Reyes on 05-19-2024 Potassium [Moles/Vol] 4.3 mmol/L 3.5-5.1 [facility] RBC Auto (Bld) [#/Vol]Ordere d By: Alison Reyes on 05-19-2024 RBC (Bld) [#/Vol] 4.97 10*6/uL 4.6-6.2 [facility] Screening prostate specific antigen (PSA) measurementOrdered By: Alison Reyes on 05-19-2024 Prostate Specific Antigen Screen 0.20 ng/mL 0.00-4.00 [facility] Comment on above: This test was perfor med using the TPSA assay method for the[facility] system. Values obtained with differentassay methods cannot be used interchangably.When changing PSA assays in the course of monitoring apatient, additional sequential testing should be carriedout to confirm baseline values. Serum anion gap measurementO rdered By: Alison Reyes on 05-19-2024 Anion gap [Moles/Vol] 8 mmol/L 5-15 [facility] Serum globulin measurementOr dered By: Alison Reyes on 05-19-2024 Globulin (S) [Mass/Vol] 4.1 g/dL 2.2-4.2 [facility] Serum or plasma alanine hitchocck otransferase (ALT) measurementOrdered By: Alison Reyes on 05-19-2024 ALT [Catalytic activity/Vol] 39 U/L 16-61 [facility] Serum or plasma albumin carmelita urement (mass/volume)Ordered By: Alison Reyes on 05-19-2024 Albumin [Mass/Vol] 3.6 g/dL 3.2-5.0 [facility] Serum or plasma alkaline regan sphatase measurementOrdered By: Alison Reyes on 05-19-2024 ALP [Catalytic activity/Vol] 119 U/L High 45-117 [facility] Serum or plasma calcium carmelita urement (mass/volume)Ordered By: Alison Reyes on 05-19-2024 Calcium [Mass/Vol] 9.6 mg/dL 8.5-10.1 [facility] Serum or plasma cholesterol measurement (mass/volume)Ordered By: Alison Reyes on 05-19-2024 Cholesterol [Mass/Vol] 160 mg/dL <200 [facility] Comment on above: <200 mg/dL Desirable 200-240 mg/dL Borderline >240 mg/dL High Risk Serum or plasma creatinine m easurement (mass/volume)Ordered By: Alison Reyes on 05-19-2024 Creatinine [Mass/Vol] 0.91 mg/dL 0.70-1.30 [facility] Comment on above: The validity of the calculated GFR & GFRAA in patients over 70 years has not been determined. Clinical correlation is essential. Serum or plasma thyroid stim ulating hormone (TSH) measurement (units/volume)Ordered By: Alison Reyse on 05-19-2024 TSH Qn 9.090 uIU/mL High 0.358-3.740 [facility] Serum or plasma urea nitroge n measurement (mass/volume)Ordered By: Alison Reyes on 05-19-2024 Urea nitrogen [Mass/Vol] 17 mg/dL 7-18 [facility] Sodium levelOrdered By: Alison Reyes on 05-19-2024 Sodium [Moles/Vol] 136 mmol/L 136-145 [facility] TSH QnOrdered By: Alison antony on 05-19-2024 Thyroid Stimulating Hormone (TSH) 9.090 uIU/mL High 0.358-3.740 [facility] Thyroid Stim Hormone (TSH)on 05-19-2024 TSH 9.090 uIU/mL High 0.358-3.740 [facility] Comment on above: Order Comment: Order Date: 05/19/24Order Info: 0786-1 - CMPOrder Info: [id number] - LIPIDOrder Info: [id number] - MGOrder Info: 3016-3 - TSHOrder Info: 2857-1 - PSA Performed By: #### L 500.4050, L100.0100, L501.9520, L501.9910, L501.9985, L501.5200, L500.4100 ####[facility] [address] [place], [address] Total proteinOrdered By: Tim Reyes on 05-19-2024 Protein [Mass/Vol] 7.7 g/dL 6.4-8.2 [facility] Triglycerides measurementOrd ered By: Alison Reyes on 05-19-2024 Triglyceride [Mass/Vol] 213 mg/dL High <199 [facility] Comment on above: The drugs N-Acetylcy steine and Metamizole may falsely depress this assay.Serum Triglycerides Reference Interval Normal <150 mg/dL Borderline high 150 - 199 mg/dL High 200 - 499 mg/dL Very High > or = 500 mg/dL Very low density lipoprotein (VLDL) cholesterol measurementOrdered By: Alison Reyes on 05-19-2024 Very low density lipoprotein (VLDL) cholesterol measurement 43 mg/dL High 5-40 [facility] VLDL Cholesterol 43 mg/dL High 5-40 [facility] White blood cell (WBC) count Ordered By: Alison Reyes on 05-19-2024 WBC (Bld) [#/Vol] 7.7 10*3/uL 4.4-11.0 [facility] Emergency Department Summary on 05-15-2024 Emergency Department Summary [facility] Medical Records Department [address] [place] [address] Emergency Department Summary 05/15/24 MR#: [id number] Acct: [id number] Name: OK GOMEZ Rep #: [id number] : 1965 59 From: Tamy Tanner DO [...] take anything for pain prior to arrival. [facility] Medical History Morbid obesity Hyperlipidemia Supraventricular tachycardia [...] Unknown History unit/mL (3 mL) subcutaneous pen (Toujeo [...] Unknown History mg/1.5 mL) subcutaneous pen injector ([employer]) trazodone 100 mg tablet 100 mg PO [...] extremity co (more content not included)... Normal [facility] Knee 4 or More Viewson 05-15 Knee 4 or More Views [facility] Imaging Services [address] [place] [id number] Knee 4 or More Views MR#: [id number] Acct: [id number] Name: OK GOMEZ Rep #: [id number] : 1965 M 59 From: Josue Laguerre MD PCP: Dr. Alison Reyes MD Status: REG ER Study: Knee 4 or More Views Date of Exam: 05/15/24 Exam# [id number] Ordering [place]: [place] [id number] STUDY: X-RAY - LEFT KNEE REASON FOR [...] 19:02 EST Reading Location ID and State: [facility] / [place] Tel , Service support , CC: Dr. Tamy Tanner DO; Dr. Alison Reyes MD Telephonic Case Manager: Signed Normal [facility] Venous Duplex Imag/Limited/U nion 05-15-2024 Venous Duplex Imag/Limited/Uni [facility] Imaging Services [address] [place] [address] Venous Duplex Imag/Limited/Uni MR#: [id number] Acct: [id number] Name: OK GOMEZ Rep #: [id number] : 1965 M 59 From: Josue Laguerre MD PCP: Dr. Alison Reyes MD Status: [facility] Study: Venous Duplex Imag/Limited/Uni Date of Exam: 0 05/15/24 Exam# [id number] Ordering [place]: [place] [id number] STUDY: VENOUS DOPPLER ULTRASOUND - LEFT LOWER [...] Signed: Josue Laguerre MD at 18:54 EST Reading Location ID and State: [address] [place] [address] Tel , Service support , CC: Dr. Tamy Tanner DO; Dr. Alison Reyes MD Telephonic Case Manager: Signed Normal [facility] Surgery Visit Reporton 05-13 Surgery Visit Report [facility] [address] [place] [address] OFFICE VISIT Date of Service: 05/13/24 MR#: [id number] Acct: [id number] Name: OK GOMEZ Rep #: [id number] : 1965 Provider: CONSTANTINE ngo Age/Sex: 59/M Location: [facility] Status: Signed Intake Vital Signs 01/31/24 17:48 Height 5 ft 9 in Intake Visit Reasons: SORE ON LEG Chief Complaint: abscess on leg Merchandising Manager Required: No Is patient in pain?: Yes [...] 05/13/24 History mg/1.5 mL) subcutaneous pen injector (Ozempic) [...] Return Saturday for a bandage change and Benjamin Continue to place Bacitracin and an op-site over top of the scabbed area Coding Level of Care Code Off vis,est,level 3 Diagnoses Healing wound T14.90XD 05/14/24 1455 Date Edna Cool Signature: Date (if applicable) CC: Normal [facility] Surgery Visit Reporton 04-06 Surgery Visit Report [facility] [address] [place] [address]. [address] [place] [address] OFFICE VISIT Date of Service: 04/06/24 MR#: [id number] Acct: [id number] Name: PATRICIAOK Suresh Rep #: [id number] : 1965 Provider: CONSTANTINE ngo Age/Sex: 58/M Location: [facility] Status: Signed Intake Vital Signs 01/31/24 17:48 Height 5 ft 9 in Intake Visit Reasons: WOUND CHECK Chief Complaint: abscess on leg, painful/irritated Merchandising Manager Required: No Is patient in pain?: No Allergies escitalopram (From Lexapro) Adverse Reaction (Verified 04/06/24 12:56) Rash Medications [...] 04/06/24 History mg/1.5 mL) subcutaneous pen injector ([employer]) trazodone 100 mg tablet 100 mg PO [...] Post Op Diagnoses Abscess of thigh L02.419 [facility] Medical History Morbid obesity Hyperlipidemia Supraventricular [...] Cool Signature: Date (if applicable) CC: Normal [facility] Surgery Visit Reporton 03-17 Surgery Visit Report [facility] [address] [place] [address] [address] [place] [address] OFFICE VISIT Date of Service: 03/17/24 MR#: [id number] Acct: [id number] Name: OK GOMEZ Rep #: [id number] : 1965 Provider: Dr. Selam hess MD [...] 03/17/24 History unit/mL (3 mL) subcutaneous pen ([employer]IGHT [employer] Max U-300 SoloStar) levothyroxine 300 mcg tablet 300 mcg PO QDAY 03/09/24 03/17/24 History lisinopril 20 mg tablet 40 mg PO DAILY 03/09/24 03/17/24 History metoprolol succinate 50 mg 25 mg PO .COMPLEX 03/09/24 03/17/24 History tablet,extended release 24 hr semaglutide 0.25 mg or 0.5 mg (2 2 mg subcut QWEEK 03/09/24 03/17/24 History mg/1.5 mL) subcutaneous pen injector ([employer]X [employer]) trazodone 100 mg tablet 100 mg PO QDAY 03/09/24 03/17/24 History doxycycline hyclate 100 mg capsule 100 mg PO BID #20 caps 03/17/24 03/17/24 Rx [facility] [facility] Medical History (Updated 03/17/24 @ 09:47 by [...] Effort Inspection: (more content not included)... Normal [facility] Surgery Visit Reporton 02-23 [facility] [address] [place] [address] OFFICE VISIT Date of Service: 02/24/24 MR#: [id number] Acct: [id number] Name: OK GOMEZ Rep #: [id number] : 1965 Provider: CONSTANTINE ngo Age/Sex: 58/M Location: [facility] Status: Signed Intake Vital Signs 01/31/24 17:48 Height 5 ft 9 in Intake Visit Reasons: WOUND CHECK Chief Complaint: wound check Is patient in pain?: No Allergies escitalopram (From Lexapro) Adverse Reaction (Verified 02/24/24 12:59) Rash Medications [...] 02/24/24 History mg/1.5 mL) subcutaneous pen injector (Ozempic) [...] vis,est,level 2 Diagnoses Abscess of thigh L02.419 [facility] Medical History RANCHO on CPAP Essential [...] Cool Signature: Date (if applicable) CC: Normal [facility] Surgery Visit Reporton 02-12 Surgery Visit Report [facility] [address] [place] [address] OFFICE VISIT Date of Service: 02/13/24 MR#: [id number] Acct: [id number] Name: OK GOMEZ Rep #: [id number] : 1965 Provider: CONSTANTINE ngo Age/Sex: 58/M Location: [facility] Status: Signed Intake Vital Signs 01/31/24 17:48 Height 5 ft 9 in Intake Visit Reasons: PACKING REMOVAL Chief Complaint: packing removal Is patient in pain?: No Allergies escitalopram (From Lexapro) Adverse Reaction (Verified 02/13/24 13:28) Rash Medications [...] Post Op Diagnoses Abscess of thigh L02.419 [facility] Medical History RANCHO on CPAP Essential [...] Continue antibiotics Follow-up in 1 week 02/13/24 1357 Date Edna Cool Signature: Date (if applicable) CC: Normal [facility] Surgery Visit Reporton 02-11 Surgery Visit Report [facility] [address] [place] [address] OFFICE VISIT Date of Service: 02/12/24 MR#: [id number] Acct: [id number] Name: OK GOMEZ Rep #: [id number] : 1965 Provider: CONSTANTINE ngo Age/Sex: 58/M [...] Allergies escitalopram (From Lexapro) Adverse Reaction (Verified 02/12/24 14:12) Rash Medications [...] No whee (more content not included)... Normal [facility] Basic Metabolic Profile (BMP )on 01-31-2024 BUN/CRE 14.2 RATIO Normal 02-08 [facility] Comment on above: Performed By: #### L 500.2500, L100.0100 ####[facility] [address] [place], [address] CA,Total 9.6 mg/dL Normal 8.5-10.1 [facility] Comment on above: Performed By: #### L 500.2500, L100.0100 ####[facility] [address] [place], [address] Chloride [Moles/Vol] 106 mmol/L Normal 98-107 [facility] Comment on above: Performed By: #### L 500.2500, L100.0100 ####[facility] [address] [place], [address] CO2 [Moles/Vol] 26.0 mmol/L Normal 21.0-32.0 [facility] Comment on above: Performed By: #### L 500.2500, L100.0100 ####[facility] [address] [place], [address] Creatinine [Mass/Vol] 0.85 mg/dL Normal 0.70-1.30 [facility] Comment on above: Result Comment: The validity of the calculated GFR GFRAA in patients over 70 years has not been determined. Clinical correlation is essential. Performed By: #### L 500.2500, L100.0100 ####[facility] [address] [place], [address] ECRCL 161.71 ml/min Normal [facility] Comment on above: Performed By: #### L 500.2500, L100.0100 ####[facility] [address] [place], [address] EST GFR - AA 120 mL/min Normal >60 [facility] Comment on above: Result Comment: Afri can Citizen [place] GFR Calc Performed By: #### L 500.2500, L100.0100 ####[facility] [address] [place], [address] GAP 6 Normal 5-15 [facility] Comment on above: Performed By: #### L 500.2500, L100.0100 ####[facility] [address] [place], [address] GFR/1.73 sq M.predicted among non-blacks MDRD (S/P/Bld) [Vol rate/Area] 99 mL/min/{1.73_m2} Normal >60 [facility] Comment on above: Result Comment: Non- GFR Calc Performed By: #### L 500.2500, L100.0100 ####[facility] [address] [place], [address] Glucose [Mass/Vol] 143 mg/dL High 74-106 [facility] Comment on above: Result Comment: Fast ing Glucose result greater than or equal to 126 mg/dL suggests DIABETES MELLITUS per A.D.A. criteria. Performed By: #### L 500.2500, L100.0100 ####[facility] [address] [place], [address] Potassium [Moles/Vol] 4.3 mmol/L Normal 3.5-5.1 [facility] Comment on above: Performed By: #### L 500.2500, L100.0100 ####[facility] [address] [place], [address] Sodium [Moles/Vol] 138 mmol/L Normal 136-145 [facility] Comment on above: Performed By: #### L 500.2500, L100.0100 ####[facility] [address] [place], [address] Urea nitrogen [Mass/Vol] 12 mg/dL Normal 7-18 [facility] Comment on above: Performed By: #### L 500.2500, L100.0100 ####[facility] [address] [place], [address] CBC W/Diff, Automatedon 10-1 -2023 Absolute Lymph 2.16 X10 3/uL Normal 0.83-4.51 [facility] Comment on above: Performed By: #### L 500.2500, L100.0100 ####[facility] [address] [place], [address] Absolute Neut 6.1 X10 3/uL Normal 2.0-7.7 [facility] Comment on above: Performed By: #### L 500.2500, L100.0100 ####[facility] [address] [place], [address] Basophils/100 WBC (Bld) 0.6 % Normal 0-1 [facility] Comment on above: Performed By: #### L 500.2500, L100.0100 ####[facility] [address] [place], [address] Eosinophils/100 WBC (Bld) 2.2 % Normal 0-5 [facility] Comment on above: Performed By: #### L 500.2500, L100.0100 ####[facility] [address] [place], [address] Erythrocyte distribution width (RBC) [Ratio] 12.9 % Normal 11.6-14.6 [facility] Comment on above: Performed By: #### L 500.2500, L100.0100 ####[facility] [address] [place], [address] Hematocrit (Bld) [Volume fraction] 43.2 % Normal 40-54 [facility] Comment on above: Performed By: #### L 500.2500, L100.0100 ####[facility] [address] [place], [address] Hemoglobin (Bld) [Mass/Vol] 14.0 g/dL Normal 13.0-16.5 [facility] Comment on above: Performed By: #### L 500.2500, L100.0100 ####[facility] [address] [place], [address] IG% 0.300 Normal 0.0-0.9 [facility] Comment on above: Result Comment: IG% - Immature Granulocytes (promyelocytes, myelocytes and metamyelocytes) > 1% indicates that a LEFT SHIFT is Present. Performed By: #### L 500.2500, L100.0100 ####[facility] [address] [place], [address] Lymphocytes/100 WBC (Bld) 22.5 % Normal 19-41 [facility] Comment on above: Performed By: #### L 500.2500, L100.0100 ####[facility] [address] [place], [address] MCH (RBC) [Entitic mass] 30.2 pg Normal 27.0-32.0 [facility] Comment on above: Performed By: #### L 500.2500, L100.0100 ####[facility] [address] [place], [address] MCHC (RBC) [Mass/Vol] 32.4 g/dL Normal 32-36 [facility] Comment on above: Performed By: #### L 500.2500, L100.0100 ####[facility] [address] [place], [address] MCV (RBC) [Entitic vol] 93.1 fL Normal 80-94 [facility] Comment on above: Performed By: #### L 500.2500, L100.0100 ####[facility] [address] [place], [address] Monocytes/100 WBC (Bld) 10.8 % High 0-10 [facility] Comment on above: Performed By: #### L 500.2500, L100.0100 ####[facility] [address] [place], [address] Neutrophils/100 WBC (Bld) 63.6 % Normal 47-70 [facility] Comment on above: Performed By: #### L 500.2500, L100.0100 ####[facility] [address] [place], [address] Nucleated RBC (Bld) [#/Vol] 0 10*3/uL Normal 0-5 [facility] Comment on above: Performed By: #### L 500.2500, L100.0100 ####[facility] [address] [place], [address] Platelet mean volume (Bld) [Entitic vol] 10.4 fL Normal 6.2-12.0 [facility] Comment on above: Performed By: #### L 500.2500, L100.0100 ####[facility] [address] [place], [address] Platelets (Bld) [#/Vol] 286 10*3/uL Normal 150-450 [facility] Comment on above: Performed By: #### L 500.2500, L100.0100 ####[facility] [address] [place], [address] RBC (Bld) [#/Vol] 4.64 10*6/uL Normal 4.6-6.2 [facility] Comment on above: Performed By: #### L 500.2500, L100.0100 ####[facility] [address] [place], [address] RDW SD 43.9 fl Normal 35.1-43.9 [facility] Comment on above: Performed By: #### L 500.2500, L100.0100 ####[facility] [address] [place], [address] WBC (Bld) [#/Vol] 9.6 10*3/uL Normal 4.4-11.0 [facility] Comment on above: Performed By: #### L 500.2500, L100.0100 ####[facility] [address] [place], [address] Emergency Department Summary on 01-31-2024 Emergency Department Summary [facility] Medical Records Department [address] [place] [address] Emergency Department Summary 01/31/24 MR#: [id number] Acct: [id number] Name: OK GOMEZ Rep #: [id number] : 1965 58 From: Rey Torres MD [...] symptoms: Yes Recent Illness/Hospitalization : No PFSH PFS Medical History RANCHO on CPAP Essential hypertension [...] Ox 99 (more content not included)... Normal [facility] XR CHEST 2 VIEWSon XR CHEST 2 VIEWS ORIGINAL EXAMINATION: TWO [...] 08/04/2023 11:03:09 PM Ordering Provider: JESU HOLLAND [facility] ([place]) Absolute lymphocyte countOrd ered By: Alison Reyes on 07-10-2023 Lymphocytes Auto (Unsp spec) [#/Vol] 2.95 10*3/uL 0.83-4.51 [facility] Automated lymphocyte count a s percentage of total leukocytesOrdered By: Alison Reyes on 07-10-2023 Lymphocytes/100 WBC Auto (Unsp spec) 34.7 % 19-41 [facility] Basophil percentageOrdered B y: Alison Reyes on 07-10-2023 Basophil percentage 0 SEEN /hpf 0-5 [facility] Basophils/100 WBC (Bld) 0.6 % 0-1 [facility] Bilirubin [Mass/Vol] 0.40 mg/dL 0.20-1.00 [facility] Comment on above: For patients on eltr ombopag therapy, use of Dimension [place] TBIL is not recommended. Chloride [Moles/Vol] 107 mmol/L 98-107 [facility] Cholesterol [Mass/Vol] 131 mg/dL <200 [facility] Comment on above: <200 mg/dL Desirable 200-240 mg/dL Borderline >240 mg/dL High Risk Eosinophils/100 WBC (Bld) 2.6 % 0-5 [facility] Glucose [Mass/Vol] 170 mg/dL 74-106 [facility] Comment on above: Fasting Glucose resu lt greater than or equal to 126 mg/dL suggests DIABETES MELLITUS per A.D.A. criteria. Hemoglobin (Bld) [Mass/Vol] 13.4 g/dL 13.0-16.5 [facility] Monocytes/100 WBC (Bld) 9.0 % 0-10 [facility] Neutrophils (Bld) [#/Vol] 4.5 10*3/uL 2.0-7.7 [facility] Neutrophils/100 WBC (Bld) 52.7 % 47-70 [facility] Potassium [Moles/Vol] 4.2 mmol/L 3.5-5.1 [facility] Protein [Mass/Vol] 6.8 g/dL 6.4-8.2 [facility] Sodium [Moles/Vol] 139 mmol/L 136-145 [facility] Triglyceride [Mass/Vol] 152 mg/dL <199 [facility] Comment on above: The drugs N-Acetylcy steine and Metamizole may falsely depress this assay.Serum Triglycerides Reference Interval Normal <150 mg/dL Borderline high 150 - 199 mg/dL High 200 - 499 mg/dL Very High > or = 500 mg/dL WBC (Bld) [#/Vol] 8.5 10*3/uL 4.4-11.0 [facility] Bilirubin Test strip Ql (U)O rdered By: Alison Reyes on 07-10-2023 Bilirubin Ql (U) Negative Negative [facility] Determination of erythrocyte mean corpuscular volume (MCV)Ordered By: Alison Reyes on 07-10-2023 MCV (RBC) [Entitic vol] 94.7 fL 80-94 [facility] Erythrocyte distribution wid th ratioOrdered By: Alison Reyes on 07-10-2023 Erythrocyte distribution width (RBC) [Ratio] 13.2 % 11.6-14.6 [facility] Erythrocyte distribution wid th standard deviationOrdered By: Alison Reyes on 07-10-2023 Erythrocyte distribution width (RBC) [Entitic vol] 45.7 fL 35.1-43.9 [facility] Hematocrit Auto (Bld) [Volum e fraction]Ordered By: Alison Reyes on 07-10-2023 Hematocrit (Bld) [Volume fraction] 42.6 % 40-54 [facility] Immature granulocytes/100 WB C Auto (Bld)Ordered By: Alison Reyes on 07-10-2023 Immature granulocytes/100 WBC (Bld) 0.400 % 0.0-0.9 [facility] Comment on above: IG% - Immature Granu locytes (promyelocytes, myelocytes and metamyelocytes) > 1% indicates that a LEFT SHIFT is Present. Ketones Test strip Ql (U)Ord ered By: Alison Reyes on 07-10-2023 Ketones Ql (U) 5 mg/dl Negative [facility] Laboratory - Chemistry and C hemistry - challengeOrdered By: Alison Reyes on 07-10-2023 Albumin/Globulin [Mass ratio] 1.0 {ratio} 0.9-2.4 [facility] ALP [Catalytic activity/Vol] 104 U/L 45-117 [facility] ALT [Catalytic activity/Vol] 38 U/L 16-61 [facility] Cholesterol in HDL [Mass/Vol] 53 mg/dL >40 [facility] Comment on above: The drugs N-Acetylcy steine and Metamizole may falsely depress this assay. Reference Range HDL <40 mg/dL Low HDL Cholesterol HDL >or= 60 mg/dL High HDL Cholesterol Cholesterol in LDL [Mass/Vol] 48 mg/dL 0-130 [facility] CO2 [Moles/Vol] 27.0 mmol/L 21.0-32.0 [facility] Globulin (S) [Mass/Vol] 3.4 g/dL 2.2-4.2 [facility] Magnesium [Mass/Vol] 2.2 mg/dL 1.6-2.6 [facility] Urea nitrogen/Creatinine [Mass ratio] 12.8 mg/mg 10-20 [facility] Laboratory - Hematology and Cell countsOrdered By: Alison Reyes on 07-10-2023 MCH (RBC) [Entitic mass] 29.8 pg 27.0-32.0 [facility] MCHC (RBC) [Mass/Vol] 31.5 g/dL 32-36 [facility] Nucleated RBC/100 WBC (Bld) [Ratio] 0 % 0-5 [facility] Platelet mean volume (Bld) [Entitic vol] 11.3 fL 6.2-12.0 [facility] Platelets (Bld) [#/Vol] 244 10*3/uL 150-450 [facility] Mucus LM Ql (Urine sed)Order ed By: Alison Reyes on 07-10-2023 Mucus Ql (Urine sed) 2+ /hpf [facility] Nitrite Test strip Ql (U)Ord ered By: Alison Reyes on 07-10-2023 Nitrite Ql (U) Negative Negative [facility] No Panel InformationOrdered By: Alison Reyes on 07-10-2023 Estimated GFR (MDRD) Amer 107 mL/min >60 [facility] Comment on above: GFR Calc Estimated GFR (MDRD) Non-Af Amer 88 mL/min >60 [facility] Comment on above: Non- GFR Calc Urine Microalbumin/Creatinine Ratio 8.6 mg/g CRE <30 [facility] Urine RBC 0 SEEN /hpf 0-5 [facility] VLDL Cholesterol 30 mg/dL 5-40 [facility] Protein Test strip Ql (U)Ord ered By: Alison Reyes on 07-10-2023 Protein Ql (U) 15 mg/dl Negative [facility] RBC Auto (Bld) [#/Vol]Ordere d By: Alison Reyes on 03-20-2024 RBC (Bld) [#/Vol] 4.50 10*6/uL 4.6-6.2 [facility] Serum or plasma calcium carmelita urement (mass/volume)Ordered By: Alison Reyes on 07-10-2023 Calcium [Mass/Vol] 8.8 mg/dL 8.5-10.1 [facility] Serum or plasma creatinine m easurement (mass/volume)Ordered By: Alison Reyes on 07-10-2023 Creatinine [Mass/Vol] 0.94 mg/dL 0.70-1.30 [facility] Comment on above: The validity of the calculated GFR & GFRAA in patients over 70 years has not been determined. Clinical correlation is essential. Serum or plasma thyroid stim ulating hormone (TSH) measurement (units/volume)Ordered By: Alison Reyes on 07-10-2023 TSH Qn 0.93 uIU/mL 0.358-3.74 [facility] Serum or plasma urea nitroge n measurement (mass/volume)Ordered By: Alison Reyes on 07-10-2023 Urea nitrogen [Mass/Vol] 12 mg/dL 7-18 [facility] Squamous epithelial cells de tection in urine sediment by light microscopyOrdered By: Alison Reyes on 07-10-2023 Epithelial cells.squamous LM Ql (Urine sed) 0 SEEN /hpf 0-5 [facility] Thin prep Papanicolaou smear with manual screeningOrdered By: Alison Reyes on 07-10-2023 Thin prep Papanicolaou smear with manual screening 3.4 g/dL 3.2-5.0 [facility] Thin prep Papanicolaou smear with manual screening 26 U/L 15-37 [facility] Thin prep Papanicolaou smear with manual screening 5 5-15 [facility] Thin prep Papanicolaou smear with manual screening 14.5 mg/L NO RANGE EST. [facility] Thin prep Papanicolaou smear with manual screening 1.25 ng/dL 0.76-1.46 [facility] Urine blood detectionOrdered By: Alison Reyes on 07-10-2023 RBC Ql (U) Negative Negative [facility] Urine clarityOrdered By: Tim Reyes on 07-10-2023 Clarity (U) Clear Clear [facility] Urine color determinationOrd ered By: Alison Reyes on 07-10-2023 Color (U) Yellow Yellow [facility] Urine creatinine measurement (mass/volume)Ordered By: Alison Reyes on 07-10-2023 Creatinine (U) [Mass/Vol] 169.00 mg/dL NO RANGE EST. [facility] Urine glucose detectionOrder ed By: Alison Reyes on 07-10-2023 Glucose Ql (U) Normal mg/dl Normal [facility] Urine leukocyte esterase det ection by dipstickOrdered By: Alison Reyes on 07-10-2023 Leukocyte esterase Test strip Ql (U) Negative Negative [facility] Urine pHOrdered By: Alison ashley on 07-10-2023 pH (U) 5.0 [pH] 5.0 - 8.0 [facility] Urine sediment bacteria coun t by microscopy (number/high power field)Ordered By: Alison Reyes on 07-10-2023 Bacteria LM.HPF (Urine sed) [#/Area] 0 /[HPF] None Seen [facility] Urine specific gravity measu rementOrdered By: Alison Reyes on 07-10-2023 Specific gravity (U) [Rel density] 1.025 1.002-1.030 [facility] Urine urobilinogen measureme ntOrdered By: Alison Reyes on 07-10-2023 Urobilinogen Ql (U) Normal mg/dl Normal [facility] Whole blood hemoglobin A1c/t otal hemoglobin ratio (mass fraction)Ordered By: Alison Reyes on 07-10-2023 HbA1c (Bld) [Mass fraction] 7.6 % 3.8-5.6 [facility] Comment on above: Normal < 5.7 % Predi abetic 5.7 - 6.4 % Diabetic >or= 6.5 % Please note range changes. Anaerobic cultureOrdered By: Selam Manzanares on 06-13-2023 Bacteria identified Anaer cx Nom (Unsp spec) No anaerobic bacteria isolated. [facility] Bacteria identified Cx Nom ( Wound)Ordered By: Selam Manzanares on 06-13-2023 Wound Culture Meth. resistant Stap h. aureus [facility] Gram stain for investigation of transfusion reactionOrdered By: Selam Manzanares on 06-13-2023 Microscopic observation Gram stain Nom (Unsp spec) [facility] Absolute lymphocyte countOrd ered By: Alison Reyes on 03-13-2023 Lymphocytes Auto (Unsp spec) [#/Vol] 2.77 10*3/uL 0.83-4.51 [facility] Basophil percentageOrdered B y: Alison Reyes on 03-13-2023 Basophils/100 WBC (Bld) 0.7 % 0-1 [facility] Bilirubin [Mass/Vol] 0.50 mg/dL 0.20-1.00 [facility] Comment on above: For patients on eltr ombopag therapy, use of Dimension [place] TBIL is not recommended. Chloride [Moles/Vol] 104 mmol/L 98-107 [facility] Cholesterol [Mass/Vol] 170 mg/dL <200 [facility] Comment on above: <200 mg/dL Desirable 200-240 mg/dL Borderline >240 mg/dL High Risk Eosinophils/100 WBC (Bld) 5.0 % 0-5 [facility] Glucose [Mass/Vol] 144 mg/dL 74-106 [facility] Comment on above: Fasting Glucose resu lt greater than or equal to 126 mg/dL suggests DIABETES MELLITUS per A.D.A. criteria. Neutrophils (Bld) [#/Vol] 5.7 10*3/uL 2.0-7.7 [facility] Neutrophils/100 WBC (Bld) 57.3 % 47-70 [facility] Potassium [Moles/Vol] 4.4 mmol/L 3.5-5.1 [facility] Protein [Mass/Vol] 7.4 g/dL 6.4-8.2 [facility] Sodium [Moles/Vol] 137 mmol/L 136-145 [facility] Triglyceride [Mass/Vol] 233 mg/dL <199 [facility] Comment on above: The drugs N-Acetylcy steine and Metamizole may falsely depress this assay.Serum Triglycerides Reference Interval Normal <150 mg/dL Borderline high 150 - 199 mg/dL High 200 - 499 mg/dL Very High > or = 500 mg/dL WBC (Bld) [#/Vol] 9.9 10*3/uL 4.4-11.0 [facility] Blood erythrocytes count (nu mber/volume)Ordered By: Alison Reyes on 03-13-2023 RBC (Bld) [#/Vol] 4.75 10*6/uL 4.6-6.2 [facility] Blood hemoglobin measurement (mass/volume)Ordered By: Alison Reyes on 03-13-2023 Hemoglobin (Bld) [Mass/Vol] 14.3 g/dL 13.0-16.5 [facility] Blood lymphocytes/100 leukoc ytesOrdered By: Alison Reyes on 03-13-2023 Lymphocytes/100 WBC (Bld) 28.0 % 19-41 [facility] Blood monocytes/100 leukocyt esOrdered By: Alison Reyes on 03-13-2023 Monocytes/100 WBC (Bld) 8.7 % 0-10 [facility] Blood platelet mean volumeOr dered By: Alison Reyes on 03-13-2023 Platelet mean volume (Bld) [Entitic vol] 11.5 fL 6.2-12.0 [facility] Determination of erythrocyte mean corpuscular volume (MCV)Ordered By: Alison Reyes on 03-13-2023 MCV (RBC) [Entitic vol] 93.7 fL 80-94 [facility] Hematocrit Auto (Bld) [Volum e fraction]Ordered By: Alison Reyes on 03-13-2023 Hematocrit (Bld) [Volume fraction] 44.5 % 40-54 [facility] Laboratory - Chemistry and C hemistry - challengeOrdered By: Alison Ryees on 03-13-2023 ALP [Catalytic activity/Vol] 112 U/L 45-117 [facility] ALT [Catalytic activity/Vol] 31 U/L 16-61 [facility] CO2 [Moles/Vol] 26.0 mmol/L 21.0-32.0 [facility] Free T4 [Mass/Vol] 1.36 ng/dL 0.76-1.46 [facility] Globulin (S) [Mass/Vol] 3.9 g/dL 2.2-4.2 [facility] Urea nitrogen/Creatinine [Mass ratio] 17.6 mg/mg 10-20 [facility] Laboratory - Hematology and Cell countsOrdered By: Alison Reyes on 03-13-2023 Erythrocyte distribution width (RBC) [Entitic vol] 43.5 fL 35.1-43.9 [facility] Erythrocyte distribution width (RBC) [Ratio] 12.5 % 11.6-14.6 [facility] Immature granulocytes/100 WBC (Bld) 0.300 % 0.0-0.9 [facility] Comment on above: IG% - Immature Granu locytes (promyelocytes, myelocytes and metamyelocytes) > 1% indicates that a LEFT SHIFT is Present. MCH (RBC) [Entitic mass] 30.1 pg 27.0-32.0 [facility] Nucleated RBC/100 WBC (Bld) [Ratio] 0 % 0-5 [facility] MCHC Auto (RBC) [Mass/Vol]Or dered By: Alison Reyes on 03-13-2023 MCHC (RBC) [Mass/Vol] 32.1 g/dL 32-36 [facility] No Panel InformationOrdered By: Alison Reyes on 03-13-2023 Estimated GFR (MDRD) Amer 104 mL/min >60 [facility] Comment on above: GFR Calc Estimated GFR (MDRD) Non-Af Amer 86 mL/min >60 [facility] Comment on above: Non- GFR Calc Thyroid Stimulating Hormone (TSH) 4.10 uIU/mL 0.358-3.74 [facility] Platelets bldOrdered By: Tim Reyes on 03-13-2023 Platelets (Bld) [#/Vol] 246 10*3/uL 150-450 [facility] Serum or plasma albumin carmelita urement (mass/volume)Ordered By: Alison Reyes on 03-13-2023 Albumin [Mass/Vol] 3.5 g/dL 3.2-5.0 [facility] Serum or plasma albumin/glob ulin mass ratioOrdered By: Alison Reyes on 03-13-2023 Albumin/Globulin [Mass ratio] 0.9 {ratio} 0.9-2.4 [facility] Serum or plasma calcium carmelita urement (mass/volume)Ordered By: Alison Reyes on 03-13-2023 Calcium [Mass/Vol] 9.2 mg/dL 8.5-10.1 [facility] Serum or plasma cholesterol in HDL measurement (mass/volume)Ordered By: Alison Reyes on 03-13-2023 Cholesterol in HDL [Mass/Vol] 70 mg/dL >40 [facility] Comment on above: The drugs N-Acetylcy steine and Metamizole may falsely depress this assay. Reference Range HDL <40 mg/dL Low HDL Cholesterol HDL >or= 60 mg/dL High HDL Cholesterol Serum or plasma cholesterol in VLDL measurement (mass/volume)Ordered By: Alison Reyes on 03-13-2023 Cholesterol in VLDL [Mass/Vol] 47 mg/dL 5-40 [facility] Serum or plasma creatinine m easurement (mass/volume)Ordered By: Alison Reyes on 03-13-2023 Creatinine [Mass/Vol] 0.97 mg/dL 0.70-1.30 [facility] Comment on above: The validity of the calculated GFR & GFRAA in patients over 70 years has not been determined. Clinical correlation is essential. Serum or plasma low density lipoprotein (LDL) cholesterol measurement (mass/volume)Ordered By: Alison Reyes on 03-13-2023 Cholesterol in LDL [Mass/Vol] 53 mg/dL 0-130 [facility] Serum or plasma urea nitroge n measurement (mass/volume)Ordered By: Alison Reyes on 03-13-2023 Urea nitrogen [Mass/Vol] 17 mg/dL 7-18 [facility] Thin prep Papanicolaou smear with manual screeningOrdered By: Alison Reyes on 03-13-2023 Thin prep Papanicolaou smear with manual screening 24 U/L 15-37 [facility] Thin prep Papanicolaou smear with manual screening 7 5-15 [facility] Whole blood hemoglobin A1c/t otal hemoglobin ratio (mass fraction)Ordered By: Alison Reyes on 03-13-2023 HbA1c (Bld) [Mass fraction] 6.7 % 3.8-5.6 [facility] Comment on above: Normal < 5.7 % Predi abetic 5.7 - 6.4 % Diabetic >or= 6.5 % Please note range changes. Absolute lymphocyte countOrd ered By: Saleem Bridges on 02-05-2023 Lymphocytes Auto (Unsp spec) [#/Vol] 1.46 10*3/uL 0.83-4.51 [facility] Basophil percentageOrdered B y: Saleem Bridges on 02-05-2023 Basophils/100 WBC (Bld) 0.6 % 0-1 [facility] Chloride [Moles/Vol] 110 mmol/L 98-107 [facility] Eosinophils/100 WBC (Bld) 4.2 % 0-5 [facility] Glucose [Mass/Vol] 131 mg/dL 74-106 [facility] Comment on above: Fasting Glucose resu lt greater than or equal to 126 mg/dL suggests DIABETES MELLITUS per A.D.A. criteria. Neutrophils (Bld) [#/Vol] 8.0 10*3/uL 2.0-7.7 [facility] Neutrophils/100 WBC (Bld) 73.8 % 47-70 [facility] Potassium [Moles/Vol] 4.2 mmol/L 3.5-5.1 [facility] Sodium [Moles/Vol] 140 mmol/L 136-145 [facility] WBC (Bld) [#/Vol] 10.9 10*3/uL 4.4-11.0 [facility] Blood erythrocytes count (nu mber/volume)Ordered By: Saleem Bridges on 02-05-2023 RBC (Bld) [#/Vol] 4.77 10*6/uL 4.6-6.2 [facility] Blood hemoglobin measurement (mass/volume)Ordered By: Saleem Bridges on 02-05-2023 Hemoglobin (Bld) [Mass/Vol] 14.3 g/dL 13.0-16.5 [facility] Blood lymphocytes/100 leukoc ytesOrdered By: Saleem Bridges on 02-05-2023 Lymphocytes/100 WBC (Bld) 13.4 % 19-41 [facility] Blood monocytes/100 leukocyt esOrdered By: Saleem Bridges on 02-05-2023 Monocytes/100 WBC (Bld) 7.4 % 0-10 [facility] Blood platelet mean volumeOr dered By: Saleem Bridges on 02-05-2023 Platelet mean volume (Bld) [Entitic vol] 10.9 fL 6.2-12.0 [facility] Determination of erythrocyte mean corpuscular volume (MCV)Ordered By: Saleem Bridges on 02-05-2023 MCV (RBC) [Entitic vol] 94.8 fL 80-94 [facility] Hematocrit Auto (Bld) [Volum e fraction]Ordered By: Saleem Bridges on 02-05-2023 Hematocrit (Bld) [Volume fraction] 45.2 % 40-54 [facility] Influenza virus A and B and SARS-CoV-2 (COVID-19) Ag panel - Upper respiratory specimOrdered By: Saleem Bridges on 02-05-2023 SARS-CoV-2 & FLU Antigen (Rapid) SARS-CoV-2 (COVID 19) [facility] SARS-CoV-2 & FLU Antigen (Rapid) SARS-CoV-2 (COVID 19) [facility] Laboratory - Chemistry and C hemistry - challengeOrdered By: Saleem Bridges on 02-05-2023 CO2 [Moles/Vol] 25.0 mmol/L 21.0-32.0 [facility] Natriuretic peptide B (Bld) [Mass/Vol] 92.2 pg/mL 0-100 [facility] Urea nitrogen/Creatinine [Mass ratio] 13.3 mg/mg 10-20 [facility] Laboratory - Hematology and Cell countsOrdered By: Saleem Bridges on 02-05-2023 Erythrocyte distribution width (RBC) [Entitic vol] 43.0 fL 35.1-43.9 [facility] Erythrocyte distribution width (RBC) [Ratio] 12.5 % 11.6-14.6 [facility] Immature granulocytes/100 WBC (Bld) 0.600 % 0.0-0.9 [facility] Comment on above: IG% - Immature Granu locytes (promyelocytes, myelocytes and metamyelocytes) > 1% indicates that a LEFT SHIFT is Present. MCH (RBC) [Entitic mass] 30.0 pg 27.0-32.0 [facility] Nucleated RBC/100 WBC (Bld) [Ratio] 0 % 0-5 [facility] MCHC Auto (RBC) [Mass/Vol]Or dered By: Saleem Bridges on 02-05-2023 MCHC (RBC) [Mass/Vol] 31.6 g/dL 32-36 [facility] No Panel InformationOrdered By: Saleem Bridges on 02-05-2023 Estimated Creatinine Clearance Calc 92.74 ml/min [facility] Estimated GFR (MDRD) Amer 112 mL/min >60 [facility] Comment on above: GFR Calc Estimated GFR (MDRD) Non-Af Amer 93 mL/min >60 [facility] Comment on above: Non- GFR Calc Platelets bldOrdered By: Otto Bridges on 02-05-2023 Platelets (Bld) [#/Vol] 241 10*3/uL 150-450 [facility] Serum or plasma calcium carmelita urement (mass/volume)Ordered By: Saleem Bridges on 02-05-2023 Calcium [Mass/Vol] 8.9 mg/dL 8.5-10.1 [facility] Serum or plasma creatinine m easurement (mass/volume)Ordered By: Saleem Bridges on 02-05-2023 Creatinine [Mass/Vol] 0.90 mg/dL 0.70-1.30 [facility] Comment on above: The validity of the calculated GFR & GFRAA in patients over 70 years has not been determined. Clinical correlation is essential. Serum or plasma urea nitroge n measurement (mass/volume)Ordered By: Saleem Bridges on 02-05-2023 Urea nitrogen [Mass/Vol] 12 mg/dL 7-18 [facility] Thin prep Papanicolaou smear with manual screeningOrdered By: Saleem Bridges on 02-05-2023 Thin prep Papanicolaou smear with manual screening 5 5-15 [facility] .Auto Diffon 01-05-2023 Basophil, Absolute 0.1 10 3/mcL Normal 0.0-0.2 [facility] ([place] Comment on above: Performed By: #### M DW, ANEU, LIP, ADIFF, CBC, CMP, GFR #### [address] [address] Basophils/100 WBC (Bld) 0.8 % Normal 0.0-2.5 [facility] ([place]) Comment on above: Performed By: #### M DW, ANEU, LIP, ADIFF, CBC, CMP, GFR #### [address] [place], [place] [address] Eosinophil, Absolute 0.2 10 3/mcL Normal 0.0-0.4 [facility] ([place] Comment on above: Performed By: #### M DW, ANEU, LIP, ADIFF, CBC, CMP, GFR #### [address] [address] Eosinophils/100 WBC (Bld) 2.3 % Normal 0.0-7.0 [facility] ([place] Comment on above: Performed By: #### M DW, ANEU, LIP, ADIFF, CBC, CMP, GFR #### [address] [address] Lymphocyte, Absolute 2.0 10 3/mcL Normal 0.8-3.9 [facility] [place] Comment on above: Performed By: #### M DW, ANEU, LIP, ADIFF, CBC, CMP, GFR #### [address] [address] Lymphocytes/100 WBC (Bld) 22.7 % Normal 10.0-50.0 [facility] ([place] Comment on above: Performed By: #### M DW, ANEU, LIP, ADIFF, CBC, CMP, GFR #### [address] [address] Monocyte, Absolute 0.7 10 3/mcL Normal 0.2-1.0 [facility] ([place] Comment on above: Performed By: #### M DW, ANEU, LIP, ADIFF, CBC, CMP, GFR #### [address] [address] Monocytes/100 WBC (Bld) 8.1 % Normal 1.7-13.0 [facility] ([place]) Comment on above: Performed By: #### M DW, ANEU, LIP, ADIFF, CBC, CMP, GFR #### [address] [address] Neutrophils/100 WBC (Bld) 66.1 % Normal 37.0-80.0 [facility] ([place] Comment on above: Performed By: #### M DW, ANEU, LIP, ADIFF, CBC, CMP, GFR #### [address] [address] .GFRon 01-05-2023 GFR Non- 60 ml/min/1.73sqm Normal [facility] ([place] Comment on above: Result Comment: GFR Population [...] ANEU, LIP, ADIFF, CBC, CMP, GFR #### [address] [address] GFR 73 ml/min/1.73sqm Normal [facility] ([place] Comment on above: Result Comment: GFR Population [...] ANEU, LIP, ADIFF, CBC, CMP, GFR #### [address] [address] .MDWon 01-05-2023 Monocyte Distribution Width 15.45 Normal 0.00-20.00 [facility] ([place] Comment on above: Result Comment: For ED adult patients suspected of sepsis, MDW<=20.0 does not rule out sepsis or risk of sepsis Performed By: #### M DW, ANEU, LIP, ADIFF, CBC, CMP, GFR #### [place] [address] .NEUABSon 01-05-2023 Neutrophil, Absolute 5.9 10 3/mcL Normal 2.9-6.2 [facility] [place] Comment on above: Performed By: #### M DW, ANEU, LIP, ADIFF, CBC, CMP, GFR #### [place] [address] CBCon 01-05-2023 Erythrocyte distribution width (RBC) [Ratio] 13.0 % Normal 11.5-14.5 [facility] ([place] Comment on above: Performed By: #### M DW, ANEU, LIP, ADIFF, CBC, CMP, GFR #### [place] [address] Hematocrit (Bld) [Volume fraction] 43.3 % Normal 42.0-52.0 [facility] ([place] Comment on above: Performed By: #### M DW, ANEU, LIP, ADIFF, CBC, CMP, GFR #### [place] [address] Hgb 14.9 G/dL Normal 14.0-18.0 [facility] ([place] Comment on above: Performed By: #### M DW, ANEU, LIP, ADIFF, CBC, CMP, GFR #### [place] [address] MCH (RBC) [Entitic mass] 31.5 pg High 27.0-31.2 [facility] ([place] Comment on above: Performed By: #### M DW, ANEU, LIP, ADIFF, CBC, CMP, GFR #### [place] [address] MCHC 34.5 G/dL Normal 31.8-35.4 [facility] ([place] Comment on above: Performed By: #### M DW, ANEU, LIP, ADIFF, CBC, CMP, GFR #### [place] [address] MCV (RBC) [Entitic vol] 91.4 fL Normal 80.0-94.0 [facility] ([place] Comment on above: Performed By: #### M DW, ANEU, LIP, ADIFF, CBC, CMP, GFR #### [address] [address] Platelet 239 10 3/mcL Normal 130-400 [facility] ([place] Comment on above: Performed By: #### M DW, ANEU, LIP, ADIFF, CBC, CMP, GFR #### [address] [address] Platelet mean volume (Bld) [Entitic vol] 8.7 fL Normal 7.4-10.4 [facility] ([place] Comment on above: Performed By: #### M DW, ANEU, LIP, ADIFF, CBC, CMP, GFR #### [address] [address] RBC 4.74 10 6/mcL Normal 4.04-6.13 [facility] ([place] Comment on above: Performed By: #### M DW, ANEU, LIP, ADIFF, CBC, CMP, GFR #### [address] [address] WBC 8.9 10 3/mcL Normal 4.6-10.8 [facility] ([place] Comment on above: Performed By: #### M DW, ANEU, LIP, ADIFF, CBC, CMP, GFR #### [address] [address] CMPon 01-05-2023 Albumin Level 3.8 G/dL Normal 3.5-5.0 [facility] ([place] Comment on above: Performed By: #### M DW, ANEU, LIP, ADIFF, CBC, CMP, GFR #### [address] [address] Albumin/Globulin [Mass ratio] 1.0 {ratio} Low 1.1-2.5 [facility] ([place] Comment on above: Performed By: #### M DW, ANEU, LIP, ADIFF, CBC, CMP, GFR #### [address] [address] ALP [Catalytic activity/Vol] 117 U/L Normal 40-135 [facility] ([place] Comment on above: Performed By: #### M DW, ANEU, LIP, ADIFF, CBC, CMP, GFR #### [address] [address] ALT [Catalytic activity/Vol] 39 U/L Normal 16-63 [facility] ([place] Comment on above: Performed By: #### M DW, ANEU, LIP, ADIFF, CBC, CMP, GFR #### [address] [address] AST [Catalytic activity/Vol] 37 U/L Normal 10-40 [facility] ([place] Comment on above: Performed By: #### M DW, ANEU, LIP, ADIFF, CBC, CMP, GFR #### [address] [address] Bili Total 0.5 mg/dL Normal 0.2-1.0 [facility] ([place] Comment on above: Result Comment: Use of this assay is not recommended for patients undergoing treatment with eltrombopag due to the potential for falsely elevated results. Performed By: #### M DW, ANEU, LIP, ADIFF, CBC, CMP, GFR #### [address] [address] BUN/Creatinine Ratio 9 ratio Normal 7-27 [facility] ([place] Comment on above: Performed By: #### M DW, ANEU, LIP, ADIFF, CBC, CMP, GFR #### [address] [address] Calcium [Mass/Vol] 9.4 mg/dL Normal 8.4-10.2 [facility] ([place] Comment on above: Performed By: #### M DW, ANEU, LIP, ADIFF, CBC, CMP, GFR #### [address] [address] Chloride [Moles/Vol] 104 mmol/L Normal 98-107 [facility] ([place] Comment on above: Performed By: #### M DW, ANEU, LIP, ADIFF, CBC, CMP, GFR #### [address] [address] CO2 [Moles/Vol] 29 mmol/L Normal 22-29 [facility] ([place] Comment on above: Performed By: #### M DW, ANEU, LIP, ADIFF, CBC, CMP, GFR #### [address] [address] Creatinine [Mass/Vol] 1.25 mg/dL Normal 0.70-1.30 [facility] ([place] Comment on above: Performed By: #### M DW, ANEU, LIP, ADIFF, CBC, CMP, GFR #### [address] [address] Electrolyte Balance 7.0 mEq/L Normal 4.0-15.0 [facility] ([place]) Comment on above: Performed By: #### M DW, ANEU, LIP, ADIFF, CBC, CMP, GFR #### [address] [address] Globulin 3.7 G/dL Normal [facility] ([place] Comment on above: Performed By: #### M DW, ANEU, LIP, ADIFF, CBC, CMP, GFR #### [address] [address] Glucose [Mass/Vol] 159 mg/dL High 70-105 [facility] ([place] Comment on above: Performed By: #### M DW, ANEU, LIP, ADIFF, CBC, CMP, GFR #### [address] [address] Potassium [Moles/Vol] 4.8 mmol/L Normal 3.5-5.1 [facility] ([place] Comment on above: Performed By: #### M DW, ANEU, LIP, ADIFF, CBC, CMP, GFR #### [address] [address] Sodium [Moles/Vol] 140 mmol/L Normal 136-145 [facility] ([place] Comment on above: Performed By: #### M DW, ANEU, LIP, ADIFF, CBC, CMP, GFR #### [address] [place], [place] [address] Total Protein 7.5 G/dL Normal 6.4-8.2 [facility] ([place] Comment on above: Performed By: #### M DW, ANEU, LIP, ADIFF, CBC, CMP, GFR #### [address] [place], [place] [address] Urea nitrogen [Mass/Vol] 11 mg/dL Normal 7-18 [facility] ([place] Comment on above: Performed By: #### M DW, ANEU, LIP, ADIFF, CBC, CMP, GFR #### [address] [place], [place] [address] CT ABD/PELVIS W/ IV CONTRAST ONLYon 01-05-2023 [...] Date: 01/05/2023 3:04:10 AM Ordering Provider: PRABHJOT DURAN [facility] ([place]) LABORATORYOrdered By: SYSTEM SYSTEM on 01-05-2023 Albumin [...] Jimena Billingsley on 01-05-2023 Appearance (U) Clear (01/05/23 1:28 AM) Invalid Interpretation Code Clear AO [...] 01-05-2023 Lipase Level 33 U/L Normal 16-77 [facility] ([place] Comment on above: Performed By: #### M DW, ANEU, LIP, ADIFF, CBC, CMP, GFR #### [place] [address] [address] UAon 01-05-2023 Color (U) Yellow Normal [facility] ([place] Comment on above: Performed By: #### U A #### [place] [address] [address] Glucose (U) [Mass/Vol] Negative Normal Negative [facility] [place] Comment on above: Performed By: #### U A #### [address] [address] Ketones Ql (U) Trace Abnormal Negative [facility] ([place] Comment on above: Performed By: #### U A #### [place] [address] UA Appear Clear Normal Clear [facility] ([place] Comment on above: Performed By: #### U A #### [address] [address] UA Blood Negative Normal Negative [facility] ([place] Comment on above: Performed By: #### U A #### [address] [address] UA Leuk Est Negative Normal Negative [facility] ([place] Comment on above: Performed By: #### U A #### [address] [address] UA Nitrite Negative Normal Negative [facility] ([place] Comment on above: Performed By: #### U A #### [place] [address] [address] UA pH 5.5 Normal 5.0 - 8.0 [facility] ([place] Comment on above: Performed By: #### U A #### [address] [address] UA Protein Negative Normal Negative [facility] ([place] Comment on above: Performed By: #### U A #### [place] [address] UA Spec Grav >=1.030 Abnormal 1.015-1.025 [facility] ([place] Comment on above: Performed By: #### U A #### [address] [place], [place] [address] UA Specimen Type Void Normal [facility] ([place] Comment on above: Performed By: #### U A #### [address] [place], [place] [address] UA Urobilinogen 0.2 E.U./dL Normal 0.2-1.0 [facility] ([place] Comment on above: Performed By: #### U A #### [address] [place], [place] [address] Urobilinogen (U) [Mass/Vol] Negative Normal Negative [facility] ([place] Comment on above: Performed By: #### U A #### [address] [address] Absolute lymphocyte countOrd ered By: Alison Reyes on 11-22-2022 Lymphocytes Auto (Unsp spec) [#/Vol] 2.35 10*3/uL 0.83-4.51 [facility] Basophil percentageOrdered B y: Alison Reyes on 11-22-2022 Basophils/100 WBC (Bld) 0.8 % 0-1 [facility] Bilirubin [Mass/Vol] 0.40 mg/dL 0.20-1.00 [facility] Comment on above: For patients on eltr ombopag therapy, use of Dimension [place] TBIL is not recommended. Chloride [Moles/Vol] 103 mmol/L 98-107 [facility] Cholesterol [Mass/Vol] 164 mg/dL <200 [facility] Comment on above: <200 mg/dL Desirable 200-240 mg/dL Borderline >240 mg/dL High Risk Eosinophils/100 WBC (Bld) 2.7 % 0-5 [facility] Glucose [Mass/Vol] 175 mg/dL 74-106 [facility] Comment on above: Fasting Glucose resu lt greater than or equal to 126 mg/dL suggests DIABETES MELLITUS per A.D.A. criteria. Neutrophils (Bld) [#/Vol] 4.4 10*3/uL 2.0-7.7 [facility] Neutrophils/100 WBC (Bld) 56.4 % 47-70 [facility] Potassium [Moles/Vol] 4.2 mmol/L 3.5-5.1 [facility] Protein [Mass/Vol] 7.5 g/dL 6.4-8.2 [facility] Sodium [Moles/Vol] 135 mmol/L 136-145 [facility] Triglyceride [Mass/Vol] 243 mg/dL <199 [facility] Comment on above: The drugs N-Acetylcy steine and Metamizole may falsely depress this assay.Serum Triglycerides Reference Interval Normal <150 mg/dL Borderline high 150 - 199 mg/dL High 200 - 499 mg/dL Very High > or = 500 mg/dL WBC (Bld) [#/Vol] 7.8 10*3/uL 4.4-11.0 [facility] Blood erythrocytes count (nu mber/volume)Ordered By: Alison Reyes on 11-22-2022 RBC (Bld) [#/Vol] 4.87 10*6/uL 4.6-6.2 [facility] Blood hemoglobin measurement (mass/volume)Ordered By: Alison Reyes on 11-22-2022 Hemoglobin (Bld) [Mass/Vol] 15.2 g/dL 13.0-16.5 [facility] Blood lymphocytes/100 leukoc ytesOrdered By: Alison Reyes on 11-22-2022 Lymphocytes/100 WBC (Bld) 30.0 % 19-41 [facility] Blood monocytes/100 leukocyt esOrdered By: Alison Reyes on 11-22-2022 Monocytes/100 WBC (Bld) 9.7 % 0-10 [facility] Blood platelet mean volumeOr dered By: Alison Reyes on 11-22-2022 Platelet mean volume (Bld) [Entitic vol] 11.2 fL 6.2-12.0 [facility] Determination of erythrocyte mean corpuscular volume (MCV)Ordered By: Alison Reyes on 11-22-2022 MCV (RBC) [Entitic vol] 91.2 fL 80-94 [facility] Hematocrit Auto (Bld) [Volum e fraction]Ordered By: Alison Reyes on 11-22-2022 Hematocrit (Bld) [Volume fraction] 44.4 % 40-54 [facility] Laboratory - Chemistry and C hemistry - challengeOrdered By: Alison Reyes on 11-22-2022 ALP [Catalytic activity/Vol] 117 U/L 45-117 [facility] ALT [Catalytic activity/Vol] 51 U/L 16-61 [facility] CO2 [Moles/Vol] 26.0 mmol/L 21.0-32.0 [facility] Free T4 [Mass/Vol] 1.02 ng/dL 0.76-1.46 [facility] Globulin (S) [Mass/Vol] 4.0 g/dL 2.2-4.2 [facility] Magnesium [Mass/Vol] 2.2 mg/dL 1.6-2.6 [facility] Urea nitrogen/Creatinine [Mass ratio] 13.1 mg/mg 10-20 [facility] - Hematology and Cell countsOrdered By: Alison Reyes on 11-22-2022 Erythrocyte distribution width (RBC) [Entitic vol] 40.5 fL 35.1-43.9 [facility] Erythrocyte distribution width (RBC) [Ratio] 12.2 % 11.6-14.6 [facility] Immature granulocytes/100 WBC (Bld) 0.400 % 0.0-0.9 [facility] Comment on above: IG% - Immature Granu locytes (promyelocytes, myelocytes and metamyelocytes) > 1% indicates that a LEFT SHIFT is Present. MCH (RBC) [Entitic mass] 31.2 pg 27.0-32.0 [facility] Nucleated RBC/100 WBC (Bld) [Ratio] 0 % 0-5 [facility] MCHC Auto (RBC) [Mass/Vol]Or dered By: Alison Reyes on 11-22-2022 MCHC (RBC) [Mass/Vol] 34.2 g/dL 32-36 [facility] No Panel InformationOrdered By: Alison Reyes on 11-22-2022 Estimated GFR (MDRD) Amer 92 mL/min >60 [facility] Comment on above: GFR Calc Estimated GFR (MDRD) Non-Af Amer 76 mL/min >60 [facility] Comment on above: Non- GFR Calc Prostate Specific Antigen Screen 0.18 ng/mL 0.00-4.00 [facility] Comment on above: This test was perfor med using the TPSA assay method for the[employer] chemistry system. Values obtained with differentassay methods cannot be used interchangably.When changing PSA assays in the course of monitoring apatient, additional sequential testing should be carriedout to confirm baseline values. Thyroid Stimulating Hormone (TSH) 15.80 uIU/mL 0.358-3.74 [facility] Platelets bldOrdered By: Tim Reyes on 11-22-2022 Platelets (Bld) [#/Vol] 258 10*3/uL 150-450 [facility] Serum or plasma albumin carmelita urement (mass/volume)Ordered By: Alison Reyes on 11-22-2022 Albumin [Mass/Vol] 3.5 g/dL 3.2-5.0 [facility] Serum or plasma albumin/glob ulin mass ratioOrdered By: Alison Reyes on 11-22-2022 Albumin/Globulin [Mass ratio] 0.9 {ratio} 0.9-2.4 [facility] Serum or plasma calcium carmelita urement (mass/volume)Ordered By: Alison Reyes on 11-22-2022 Calcium [Mass/Vol] 9.7 mg/dL 8.5-10.1 [facility] Serum or plasma cholesterol in HDL measurement (mass/volume)Ordered By: Alison Reyes on 11-22-2022 Cholesterol in HDL [Mass/Vol] 50 mg/dL >40 [facility] Comment on above: The drugs N-Acetylcy steine and Metamizole may falsely depress this assay. Reference Range HDL <40 mg/dL Low HDL Cholesterol HDL >or= 60 mg/dL High HDL Cholesterol Serum or plasma cholesterol in VLDL measurement (mass/volume)Ordered By: Alison Reyes on 11-22-2022 Cholesterol in VLDL [Mass/Vol] 49 mg/dL 5-40 [facility] Serum or plasma creatinine m easurement (mass/volume)Ordered By: Alison Reyes on 11-22-2022 Creatinine [Mass/Vol] 1.07 mg/dL 0.70-1.30 [facility] Comment on above: The validity of the calculated GFR & GFRAA in patients over 70 years has not been determined. Clinical correlation is essential. Serum or plasma low density lipoprotein (LDL) cholesterol measurement (mass/volume)Ordered By: Alison Reyes on 11-22-2022 Cholesterol in LDL [Mass/Vol] 65 mg/dL 0-130 [facility] Serum or plasma urea nitroge n measurement (mass/volume)Ordered By: Alison Reyes on 11-22-2022 Urea nitrogen [Mass/Vol] 14 mg/dL 7-18 [facility] Thin prep Papanicolaou smear with manual screeningOrdered By: Alison Reyes on 11-22-2022 Thin prep Papanicolaou smear with manual screening 33 U/L 15-37 [facility] Thin prep Papanicolaou smear with manual screening 6 5-15 [facility] Whole blood hemoglobin A1c/t otal hemoglobin ratio (mass fraction)Ordered By: Alison Reyes on 11-22-2022 HbA1c (Bld) [Mass fraction] 7.8 % 3.8-5.6 [facility] Comment on above: Normal < 5.7 % Predi abetic 5.7 - 6.4 % Diabetic >or= 6.5 % Please note range changes. Absolute lymphocyte countOrd ered By: Dr. Reyes on 05-22-2022 Lymphocytes Auto (Unsp spec) [#/Vol] 2.74 10*3/uL 0.83-4.51 [facility] Basophil percentageOrdered B y: Dr. Reyes on 05-22-2022 Basophil percentage 0 SEEN /hpf 0-5 [facility] Basophils/100 WBC (Bld) 0.7 % 0-1 [facility] Bilirubin [Mass/Vol] 0.40 mg/dL 0.20-1.00 [facility] Comment on above: For patients on eltr ombopag therapy, use of Dimension [place] TBIL is not recommended. Chloride [Moles/Vol] 102 mmol/L 98-107 [facility] Cholesterol [Mass/Vol] 206 mg/dL <200 [facility] Comment on above: <200 mg/dL Desirable 200-240 mg/dL Borderline >240 mg/dL High Risk Eosinophils/100 WBC (Bld) 3.1 % 0-5 [facility] Glucose [Mass/Vol] 189 mg/dL 74-106 [facility] Comment on above: Fasting Glucose resu lt greater than or equal to 126 mg/dL suggests DIABETES MELLITUS per A.D.A. criteria. Neutrophils (Bld) [#/Vol] 5.4 10*3/uL 2.0-7.7 [facility] Neutrophils/100 WBC (Bld) 58.3 % 47-70 [facility] Potassium [Moles/Vol] 5.1 mmol/L 3.5-5.1 [facility] Protein [Mass/Vol] 7.7 g/dL 6.4-8.2 [facility] Sodium [Moles/Vol] 136 mmol/L 136-145 [facility] Triglyceride [Mass/Vol] 283 mg/dL <199 [facility] Comment on above: The drugs N-Acetylcy steine and Metamizole may falsely depress this assay.Serum Triglycerides Reference Interval Normal <150 mg/dL Borderline high 150 - 199 mg/dL High 200 - 499 mg/dL Very High > or = 500 mg/dL WBC (Bld) [#/Vol] 9.2 10*3/uL 4.4-11.0 [facility] Bilirubin Test strip Ql (U)O rdered By: Dr. Reyes on 05-22-2022 Bilirubin Ql (U) Negative Negative [facility] Blood erythrocytes count (nu mber/volume)Ordered By: Dr. Reyes on 05-22-2022 RBC (Bld) [#/Vol] 4.81 10*6/uL 4.6-6.2 [facility] Blood hemoglobin measurement (mass/volume)Ordered By: Dr. Reyes on 05-22-2022 Hemoglobin (Bld) [Mass/Vol] 15.0 g/dL 13.0-16.5 [facility] Blood lymphocytes/100 leukoc ytesOrdered By: Dr. Reyes on 05-22-2022 Lymphocytes/100 WBC (Bld) 29.9 % 19-41 [facility] Blood monocytes/100 leukocyt esOrdered By: Dr. Reyes on 05-22-2022 Monocytes/100 WBC (Bld) 7.5 % 0-10 [facility] Blood platelet mean volumeOr dered By: Dr. Reyes on 05-22-2022 Platelet mean volume (Bld) [Entitic vol] 11.1 fL 6.2-12.0 [facility] Determination of erythrocyte mean corpuscular volume (MCV)Ordered By: Dr. Reyes on 05-22-2022 MCV (RBC) [Entitic vol] 95.0 fL 80-94 [facility] Hematocrit Auto (Bld) [Volum e fraction]Ordered By: Dr. Reyes on 05-22-2022 Hematocrit (Bld) [Volume fraction] 45.7 % 40-54 [facility] Ketones Test strip Ql (U)Ord ered By: Dr. Reyes on 05-22-2022 Ketones Ql (U) Negative Negative [facility] Laboratory - Chemistry and C hemistry - challengeOrdered By: Dr. Reyes on 05-22-2022 ALP [Catalytic activity/Vol] 122 U/L 45-117 [facility] ALT [Catalytic activity/Vol] 37 U/L 16-61 [facility] CO2 [Moles/Vol] 27.0 mmol/L 21.0-32.0 [facility] Globulin (S) [Mass/Vol] 4.0 g/dL 2.2-4.2 [facility] Magnesium [Mass/Vol] 2.3 mg/dL 1.6-2.6 [facility] Urea nitrogen/Creatinine [Mass ratio] 19.8 mg/mg 10-20 [facility] Laboratory - Hematology and Cell countsOrdered By: Dr. Reyes on 05-22-2022 Erythrocyte distribution width (RBC) [Entitic vol] 43.5 fL 35.1-43.9 [facility] Erythrocyte distribution width (RBC) [Ratio] 12.4 % 11.6-14.6 [facility] Immature granulocytes/100 WBC (Bld) 0.500 % 0.0-0.9 [facility] Comment on above: IG% - Immature Granu locytes (promyelocytes, myelocytes and metamyelocytes) > 1% indicates that a LEFT SHIFT is Present. MCH (RBC) [Entitic mass] 31.2 pg 27.0-32.0 [facility] Nucleated RBC/100 [facility] (Bld) [Ratio] 0 [facility] [Mass/Vol]Or dered By: Dr. Reyes on 05-22-2022 MCHC (RBC) [Mass/Vol] 32.8 g/dL 32-36 [facility] Mucus LM Ql (Urine sed)Order ed By: Dr. Reyes on 05-22-2022 Mucus Ql (Urine sed) 0 SEEN /hpf [facility] Nitrite Test strip Ql (U)Ord ered By: Dr. Reyes on 05-22-2022 Nitrite Ql (U) Negative Negative [facility] No Panel InformationOrdered By: Dr. Reyes on 05-22-2022 Estimated GFR (MDRD) Amer 99 mL/min >60 [facility] Comment on above: GFR Calc Estimated GFR (MDRD) Non-Af Amer 82 mL/min >60 [facility] Comment on above: Non- GFR Calc Thyroid Stimulating Hormone (TSH) 36.50 uIU/mL 0.358-3.74 [facility] Urine Microalbumin/Creatinine Ratio 7.6 mg/g CRE <30 [facility] Platelets bldOrdered By: Dr. Reyes on 05-22-2022 Platelets (Bld) [#/Vol] 289 10*3/uL 150-450 [facility] Protein Test strip Ql (U)Ord ered By: Dr. Reyes on 05-22-2022 Protein Ql (U) Negative Negative [facility] Serum or plasma albumin carmelita urement (mass/volume)Ordered By: Dr. Reyes on 05-22-2022 Albumin [Mass/Vol] 3.7 g/dL 3.2-5.0 [facility] Serum or plasma albumin/glob ulin mass ratioOrdered By: Dr. Reyes on 05-22-2022 Albumin/Globulin [Mass ratio] 0.9 {ratio} 0.9-2.4 [facility] Serum or plasma calcium carmelita urement (mass/volume)Ordered By: Dr. Reyes on 05-22-2022 Calcium [Mass/Vol] 9.4 mg/dL 8.5-10.1 [facility] Serum or plasma cholesterol in HDL measurement (mass/volume)Ordered By: Dr. Reyes on 05-22-2022 Cholesterol in HDL [Mass/Vol] 53 mg/dL >40 [facility] Comment on above: The drugs N-Acetylcy steine and Metamizole may falsely depress this assay. Reference Range HDL <40 mg/dL Low HDL Cholesterol HDL >or= 60 mg/dL High HDL Cholesterol Serum or plasma cholesterol in VLDL measurement (mass/volume)Ordered By: Dr. Reyes on 05-22-2022 Cholesterol in VLDL [Mass/Vol] 57 mg/dL 5-40 [facility] Serum or plasma creatinine m easurement (mass/volume)Ordered By: Dr. Reyes on 05-22-2022 Creatinine [Mass/Vol] 1.01 mg/dL 0.70-1.30 [facility] Comment on above: The validity of the calculated GFR & GFRAA in patients over 70 years has not been determined. Clinical correlation is essential. Serum or plasma low density lipoprotein (LDL) cholesterol measurement (mass/volume)Ordered By: Dr. Reyes on 05-22-2022 Cholesterol in LDL [Mass/Vol] 96 mg/dL 0-130 [facility] Serum or plasma urea nitroge n measurement (mass/volume)Ordered By: Dr. Reyes on 05-22-2022 Urea nitrogen [Mass/Vol] 20 mg/dL 7-18 [facility] Squamous epithelial cells de tection in urine sediment by light microscopyOrdered By: Dr. Reyes on 05-22-2022 Epithelial cells.squamous LM Ql (Urine sed) 0-5 SEEN /hpf 0-5 [facility] Thin prep Papanicolaou smear with manual screeningOrdered By: Dr. Reyes on 05-22-2022 Thin prep Papanicolaou smear with manual screening 31 U/L 15-37 [facility] Thin prep Papanicolaou smear with manual screening 7 5-15 [facility] Thin prep Papanicolaou smear with manual screening 6.5 mg/L NO RANGE EST. [facility] Urine blood detectionOrdered By: Dr. Reyes on 05-22-2022 RBC Ql (U) Negative Negative [facility] RBC Ql (U) 0 SEEN /hpf 0-5 [facility] Urine clarityOrdered By: Dr. Reyes on 05-22-2022 Clarity (U) Clear Clear [facility] Urine color determinationOrd ered By: Dr. Reyes on 05-22-2022 Color (U) Yellow Yellow [facility] Urine creatinine measurement (mass/volume)Ordered By: Dr. Reyes on 05-22-2022 Creatinine (U) [Mass/Vol] 84.80 mg/dL NO RANGE EST. [facility] Urine glucose detectionOrder ed By: Dr. Reyes on 05-22-2022 Glucose Ql (U) Normal mg/dl Normal [facility] Urine leukocyte esterase det ection by dipstickOrdered By: Dr. Reyes on 05-22-2022 Leukocyte esterase Test strip Ql (U) Negative Negative [facility] Urine pHOrdered By: Dr. Cherry pitts on 05-22-2022 pH (U) 6.0 [pH] 5.0 - 8.0 [facility] Urine sediment bacteria coun t by microscopy (number/high power field)Ordered By: Dr. Reyes on 05-22-2022 Bacteria LM.HPF (Urine sed) [#/Area] 0 /[HPF] None Seen [facility] Urine specific gravity measu rementOrdered By: Dr. Reyes on 05-22-2022 Specific gravity (U) [Rel density] 1.010 1.002-1.030 [facility] Urobilinogen Auto test strip Ql (U)Ordered By: Dr. Reyes on 05-22-2022 Urobilinogen Ql (U) Normal mg/dl Normal [facility] Whole blood hemoglobin A1c/t otal hemoglobin ratio (mass fraction)Ordered By: Dr. Reyes on 05-22-2022 HbA1c (Bld) [Mass fraction] 7.6 % 3.8-5.6 [facility] Comment on above: Normal < 5.7 % Predi abetic 5.7 - 6.4 % Diabetic >or= 6.5 % Please note range changes. Absolute lymphocyte countOrd ered By: Dr. Peterson on 04-16-2022 Lymphocytes Auto (Unsp spec) [#/Vol] 1.53 10*3/uL 0.83-4.51 [facility] Basophil percentageOrdered B y: Dr. Peterson on 04-16-2022 Basophils/100 WBC (Bld) 0.7 % 0-1 [facility] Bilirubin [Mass/Vol] 0.50 mg/dL 0.20-1.00 [facility] Comment on above: For patients on eltr ombopag therapy, use of Dimension [place] TBIL is not recommended. Chloride [Moles/Vol] 100 mmol/L 98-107 [facility] Eosinophils/100 WBC (Bld) 0.6 % 0-5 [facility] Glucose [Mass/Vol] 190 mg/dL 74-106 [facility] Comment on above: Fasting Glucose resu lt greater than or equal to 126 mg/dL suggests DIABETES MELLITUS per A.D.A. criteria. Neutrophils (Bld) [#/Vol] 6.2 10*3/uL 2.0-7.7 [facility] Neutrophils/100 WBC (Bld) 73.1 % 47-70 [facility] Potassium [Moles/Vol] 4.6 mmol/L 3.5-5.1 [facility] Comment on above: Slight Hemolysis, Re sult may be falsely increased. Protein [Mass/Vol] 8.2 g/dL 6.4-8.2 [facility] Sodium [Moles/Vol] 133 mmol/L 136-145 [facility] WBC (Bld) [#/Vol] 8.5 10*3/uL 4.4-11.0 [facility] Blood erythrocytes count (nu mber/volume)Ordered By: Dr. Peterson on 04-16-2022 RBC (Bld) [#/Vol] 4.94 10*6/uL 4.6-6.2 [facility] Blood hemoglobin measurement (mass/volume)Ordered By: Dr. Peterson on 04-16-2022 Hemoglobin (Bld) [Mass/Vol] 15.4 g/dL 13.0-16.5 [facility] Blood lymphocytes/100 leukoc ytesOrdered By: Dr. Peterson on 04-16-2022 Lymphocytes/100 WBC (Bld) 18.1 % 19-41 [facility] Blood monocytes/100 leukocyt esOrdered By: Dr. Peterson on 04-16-2022 Monocytes/100 WBC (Bld) 7.1 % 0-10 [facility] Blood platelet mean volumeOr dered By: Dr. Peterson on 04-16-2022 Platelet mean volume (Bld) [Entitic vol] 10.3 fL 6.2-12.0 [facility] Determination of erythrocyte mean corpuscular volume (MCV)Ordered By: Dr. Peterson on 04-16-2022 MCV (RBC) [Entitic vol] 89.9 fL 80-94 [facility] Hematocrit Auto (Bld) [Volum e fraction]Ordered By: Dr. Peterson on 04-16-2022 Hematocrit (Bld) [Volume fraction] 44.4 % 40-54 [facility] Laboratory - Chemistry and C hemistry - challengeOrdered By: Dr. Peterson on 04-16-2022 ALP [Catalytic activity/Vol] 120 U/L 45-117 [facility] ALT [Catalytic activity/Vol] 35 U/L 16-61 [facility] CO2 [Moles/Vol] 24.0 mmol/L 21.0-32.0 [facility] Globulin (S) [Mass/Vol] 4.5 g/dL 2.2-4.2 [facility] Lipase [Catalytic activity/Vol] 102 U/L 73-393 [facility] Urea nitrogen/Creatinine [Mass ratio] 13.0 mg/mg 10-20 [facility] Laboratory - Hematology and Cell countsOrdered By: Dr. Peterson on 04-16-2022 Erythrocyte distribution width (RBC) [Entitic vol] 39.9 fL 35.1-43.9 [facility] Erythrocyte distribution width (RBC) [Ratio] 12.1 % 11.6-14.6 [facility] Immature granulocytes/100 WBC (Bld) 0.400 % 0.0-0.9 [facility] Comment on above: IG% - Immature Granu locytes (promyelocytes, myelocytes and metamyelocytes) > 1% indicates that a LEFT SHIFT is Present. MCH (RBC) [Entitic mass] 31.2 pg 27.0-32.0 [facility] Nucleated RBC/100 WBC (Bld) [Ratio] 0 % 0-5 [facility] MCHC Auto (RBC) [Mass/Vol]Or dered By: Dr. Peterson on 04-16-2022 MCHC (RBC) [Mass/Vol] 34.7 g/dL 32-36 [facility] No Panel InformationOrdered By: Dr. Peterson on 04-16-2022 Estimated Creatinine Clearance Calc 78.19 ml/min [facility] Estimated GFR (MDRD) Amer 91 mL/min >60 [facility] Comment on above: GFR Calc Estimated GFR (MDRD) Non-Af Amer 76 mL/min >60 [facility] Comment on above: Non- GFR Calc Platelets bldOrdered By: Dr. Peterson on 04-16-2022 Platelets (Bld) [#/Vol] 277 10*3/uL 150-450 [facility] Serum or plasma albumin carmelita urement (mass/volume)Ordered By: Dr. Peterson on 04-16-2022 Albumin [Mass/Vol] 3.7 g/dL 3.2-5.0 [facility] Serum or plasma albumin/glob ulin mass ratioOrdered By: Dr. Peterson on 04-16-2022 Albumin/Globulin [Mass ratio] 0.8 {ratio} 0.9-2.4 [facility] Serum or plasma calcium carmelita urement (mass/volume)Ordered By: Dr. Peterson on 04-16-2022 Calcium [Mass/Vol] 10.1 mg/dL 8.5-10.1 [facility] Serum or plasma creatinine m easurement (mass/volume)Ordered By: Dr. Peterson on 04-16-2022 Creatinine [Mass/Vol] 1.08 mg/dL 0.70-1.30 [facility] Comment on above: The validity of the calculated GFR & GFRAA in patients over 70 years has not been determined. Clinical correlation is essential. Serum or plasma urea nitroge n measurement (mass/volume)Ordered By: Dr. Peterson on 04-16-2022 Urea nitrogen [Mass/Vol] 14 mg/dL 7-18 [facility] Thin prep Papanicolaou smear with manual screeningOrdered By: Dr. Peterson on 04-16-2022 Thin prep Papanicolaou smear with manual screening 29 U/L 15- [facility] Comment on above: Slight Hemolysis, Re sult may be falsely increased. Thin prep Papanicolaou smear with manual screening 9 5-15 [facility] Absolute lymphocyte counton 10-30-2021 Lymphocytes Auto (Unsp spec) [#/Vol] 2.64 10*3/uL 0.83-4.51 [facility] Work Phone: Basophil percentageon 2021 Basophils/100 WBC (Bld) 0.6 % 0-1 [facility] Work Phone: [phone] Bilirubin [Mass/Vol] 0.50 mg/dL 0.20-1.00 [facility] Work Phone: Comment on above: For patients on eltr ombopag therapy, use of [place] TBIL is not recommended. Chloride [Moles/Vol] 105 mmol/L 98-107 [facility] Work Phone: Cholesterol [Mass/Vol] 141 mg/dL <200 [facility] Work Phone: Comment on above: <200 mg/dL Desirable 200-240 mg/dL Borderline >240 mg/dL High Risk Eosinophils/100 WBC (Bld) 2.9 % 0-5 [facility] Work Phone: Glucose [Mass/Vol] 129 mg/dL 74-106 [facility] Work Phone: [phone] Comment on above: Fasting Glucose resu lt greater than or equal to 126 mg/dL suggests DIABETES MELLITUS per A.D.A. criteria. Neutrophils (Bld) [#/Vol] 5.3 10*3/uL 2.0-7.7 [facility] Work Phone: Neutrophils/100 WBC (Bld) 58.8 % 47-70 [facility] Work Phone: Potassium [Moles/Vol] 4.7 mmol/L 3.5-5.1 [facility] Work Phone: Protein [Mass/Vol] 7.4 g/dL 6.4-8.2 [facility] Work Phone: Sodium [Moles/Vol] 139 mmol/L 136-145 [facility] Work Phone: [phone] Triglyceride [Mass/Vol] 200 mg/dL <199 [facility] Work Phone: Comment on above: The drugs N-Acetylcy steine and Metamizole may falsely depress this assay.Serum Triglycerides Reference Interval Normal <150 mg/dL Borderline high 150 - 199 mg/dL High 200 - 499 mg/dL Very High > or = 500 mg/dL WBC (Bld) [#/Vol] 9.0 10*3/uL 4.4-11.0 [facility] Work Phone: Blood erythrocytes count (nu mber/volume)on 10-30-2021 RBC (Bld) [#/Vol] 4.88 10*6/uL 4.6-6.2 [facility] Work Phone: Blood hemoglobin measurement (mass/volume)on 10-30-2021 Hemoglobin (Bld) [Mass/Vol] 14.5 g/dL 13.0-16.5 [facility] Work Phone: Blood lymphocytes/100 leukoc yteson 10-30-2021 Lymphocytes/100 WBC (Bld) 29.2 % 19-41 [facility] Work Phone: Blood monocytes/100 leukocyt eson 10-30-2021 Monocytes/100 WBC (Bld) 8.2 % 0-10 [facility] Work Phone: Blood platelet mean volumeon 10-30-2021 Platelet mean volume (Bld) [Entitic vol] 11.2 fL 6.2-12.0 [facility] Work Phone: Determination of erythrocyte mean corpuscular volume (MCV)on 10-30-2021 MCV (RBC) [Entitic vol] 93.6 fL 80-94 [facility] Work Phone: Hematocrit Auto (Bld) [Volum e fraction]on 10-30-2021 Hematocrit (Bld) [Volume fraction] 45.7 % 40-54 [facility] Work Phone: Laboratory - Chemistry and C hemistry - challengeon 10-30-2021 ALP [Catalytic activity/Vol] 101 U/L 45-117 [facility] Work Phone: [phone] ALT [Catalytic activity/Vol] 32 U/L 16-61 [facility] Work Phone: [phone] CO2 [Moles/Vol] 26.0 mmol/L 21.0-32.0 [facility] Work Phone: [phone] Free T4 [Mass/Vol] 1.71 ng/dL 0.76-1.46 [facility] Work Phone: [phone] Globulin (S) [Mass/Vol] 4.0 g/dL 2.2-4.2 [facility] Work Phone: [phone] Urea nitrogen/Creatinine [Mass ratio] 16.0 mg/mg 10-20 [facility] Work Phone: [phone] Laboratory - Hematology and Cell countson 10-30-2021 Erythrocyte distribution width (RBC) [Entitic vol] 42.1 fL 35.1-43.9 [facility] Work Phone: [phone] Erythrocyte distribution width (RBC) [Ratio] 12.1 % 11.6-14.6 [facility] Work Phone: [phone] Immature granulocytes/100 WBC (Bld) 0.300 % 0.0-0.9 [facility] Work Phone: [phone] Comment on above: IG% - Immature Granu locytes (promyelocytes, myelocytes and metamyelocytes) > 1% indicates that a LEFT SHIFT is Present. MCH (RBC) [Entitic mass] 29.7 pg 27.0-32.0 [facility] Work Phone: [phone] Nucleated RBC/100 WBC (Bld) [Ratio] 0 % 0-5 [facility] Work Phone: [phone] MCHC Auto (RBC) [Mass/Vol]on 10-30-2021 MCHC (RBC) [Mass/Vol] 31.7 g/dL 32-36 [facility] Work Phone: [phone] No Panel Informationon 10-30 Estimated GFR (MDRD) Amer 128 mL/min >60 [facility] Work Phone: [phone] Comment on above: GFR Calc Estimated GFR (MDRD) Non-Af Amer 105 mL/min >60 [facility] Work Phone: Comment on above: Non- GFR Calc Thyroid Stimulating Hormone (TSH) 0.02 uIU/mL 0.358-3.74 [facility] Work Phone: Urine Microalbumin/Creatinine Ratio 5.8 mg/g CRE <30 [facility] Work Phone: Platelets bldon 10-30-2021 Platelets (Bld) [#/Vol] 299 10*3/uL 150-450 [facility] Work Phone: Serum or plasma albumin carmelita urement (mass/volume)on 10-30-2021 Albumin [Mass/Vol] 3.4 g/dL 3.2-5.0 [facility] Work Phone: Serum or plasma albumin/glob ulin mass ratioon 10-30-2021 Albumin/Globulin [Mass ratio] 0.8 {ratio} 0.9-2.4 [facility] Work Phone: Serum or plasma calcium carmelita urement (mass/volume)on 10-30-2021 Calcium [Mass/Vol] 9.5 mg/dL 8.5-10.1 [facility] Work Phone: Serum or plasma cholesterol in HDL measurement (mass/volume)on 10-30-2021 Cholesterol in HDL [Mass/Vol] 44 mg/dL >40 [facility] Work Phone: Comment on above: The drugs N-Acetylcy steine and Metamizole may falsely depress this assay. Reference Range HDL <40 mg/dL Low HDL Cholesterol HDL >or= 60 mg/dL High HDL Cholesterol Serum or plasma cholesterol in VLDL measurement (mass/volume)on 10-30-2021 Cholesterol in VLDL [Mass/Vol] 40 mg/dL 5-40 [facility] Work Phone: Serum or plasma creatinine m easurement (mass/volume)on 10-30-2021 Creatinine [Mass/Vol] 0.81 mg/dL 0.70-1.30 [facility] Work Phone: Comment on above: The validity of the calculated GFR & GFRAA in patients over 70 years has not been determined. Clinical correlation is essential. Serum or plasma low density lipoprotein (LDL) cholesterol measurement (mass/volume)on 10-30-2021 Cholesterol in LDL [Mass/Vol] 57 mg/dL 0-130 [facility] Work Phone: Serum or plasma urea nitroge n measurement (mass/volume)on 10-30-2021 Urea nitrogen [Mass/Vol] 13 mg/dL 7-18 [facility] Work Phone: [phone] Thin prep Papanicolaou smear with manual screeningon 10-30-2021 Thin prep Papanicolaou smear with manual screening 27 U/L 15-37 [facility] Work Phone: Thin prep Papanicolaou smear with manual screening 8 5-15 [facility] Work Phone: Thin prep Papanicolaou smear with manual screening 6.6 mg/L NO RANGE EST. [facility] Work Phone: Urine creatinine measurement (mass/volume)on 10-30-2021 Creatinine (U) [Mass/Vol] 114.00 mg/dL NO RANGE EST. [facility] Work Phone: [phone] Whole blood hemoglobin A1c/t otal hemoglobin ratio (mass fraction)on 10-30-2021 HbA1c (Bld) [Mass fraction] 6.1 % 3.8-5.6 [facility] Work Phone: Comment on above: Normal < 5.7 % Predi abetic 5.7 - 6.4 % Diabetic >or= 6.5 % Please note range changes. Absolute lymphocyte counton 08-02-2021 Lymphocytes Auto (Unsp spec) [#/Vol] 3.81 10*3/uL 0.83-4.51 [facility] Work Phone: Basophil percentageon 2021 Basophils/100 WBC (Bld) 1.0 % 0-1 [facility] Work Phone: [phone] Bilirubin [Mass/Vol] 0.30 mg/dL 0.20-1.00 [facility] Work Phone: Comment on above: For patients on eltr ombopag therapy, use of Dimension [place] TBIL is not recommended. Chloride [Moles/Vol] 105 mmol/L 98-107 [facility] Work Phone: Cholesterol [Mass/Vol] 156 mg/dL <200 [facility] Work Phone: [phone] Comment on above: <200 mg/dL Desirable 200-240 mg/dL Borderline >240 mg/dL High Risk Eosinophils/100 WBC (Bld) 3.0 % 0-5 [facility] Work Phone: Glucose [Mass/Vol] 138 mg/dL 74-106 [facility] Work Phone: Comment on above: Fasting Glucose resu lt greater than or equal to 126 mg/dL suggests DIABETES MELLITUS per A.D.A. criteria. Neutrophils (Bld) [#/Vol] 4.9 10*3/uL 2.0-7.7 [facility] Work Phone: [phone] Neutrophils/100 WBC (Bld) 49.4 % 47-70 [facility] Work Phone: Potassium [Moles/Vol] 5.3 mmol/L 3.5-5.1 [facility] [facility] Work Phone: [phone] Protein [Mass/Vol] 7.4 g/dL 6.4-8.2 [facility] Work Phone: [phone] Sodium [Moles/Vol] 136 mmol/L 136-145 [facility] Work Phone: [phone] Triglyceride [Mass/Vol] 191 mg/dL <199 [facility] Work Phone: [phone] Comment on above: The drugs N-Acetylcy steine and Metamizole may falsely depress this assay.Serum Triglycerides Reference Interval Normal <150 mg/dL Borderline high 150 - 199 mg/dL High 200 - 499 mg/dL Very High > or = 500 mg/dL WBC (Bld) [#/Vol] 9.9 10*3/uL 4.4-11.0 [facility] Work Phone: Blood erythrocytes count (nu mber/volume)on 08-02-2021 RBC (Bld) [#/Vol] 4.77 10*6/uL 4.6-6.2 [facility] Work Phone: Blood hemoglobin measurement (mass/volume)on 08-02-2021 Hemoglobin (Bld) [Mass/Vol] 14.4 g/dL 13.0-16.5 [facility] Work Phone: [phone] Blood lymphocytes/100 leukoc yteson 08-02-2021 Lymphocytes/100 WBC (Bld) 38.6 % 19-41 [facility] Work Phone: [phone] Blood monocytes/100 leukocyt eson 08-02-2021 Monocytes/100 WBC (Bld) 7.6 % 0-10 [facility] Work Phone: Blood platelet mean volumeon 08-02-2021 Platelet mean volume (Bld) [Entitic vol] 11.3 fL 6.2-12.0 [facility] Work Phone: Determination of erythrocyte mean corpuscular volume (MCV)on 08-02-2021 MCV (RBC) [Entitic vol] 97.7 fL 80-94 [facility] Work Phone: Hematocrit Auto (Bld) [Volum e fraction]on 08-02-2021 Hematocrit (Bld) [Volume fraction] 46.6 % 40-54 [facility] Work Phone: Laboratory - Chemistry and C hemistry - challengeon 08-02-2021 ALP [Catalytic activity/Vol] 118 U/L 45-117 [facility] Work Phone: ALT [Catalytic activity/Vol] 44 U/L 16-61 [facility] Work Phone: [phone] CO2 [Moles/Vol] 24.0 mmol/L 21.0-32.0 [facility] Work Phone: Free T4 [Mass/Vol] 0.84 ng/dL 0.76-1.46 [facility] Work Phone: Globulin (S) [Mass/Vol] 3.9 g/dL 2.2-4.2 [facility] Work Phone: [phone] Urea nitrogen/Creatinine [Mass ratio] 16.9 mg/mg 10-20 [facility] Work Phone: [phone] Laboratory - Hematology and Cell countson 08-02-2021 Erythrocyte distribution width (RBC) [Entitic vol] 45.5 fL 35.1-43.9 [facility] Work Phone: [phone] Erythrocyte distribution width (RBC) [Ratio] 12.7 % 11.6-14.6 [facility] Work Phone: [phone] Immature granulocytes/100 WBC (Bld) 0.400 % 0.0-0.9 [facility] Work Phone: [phone] Comment on above: IG% - Immature Granu locytes (promyelocytes, myelocytes and metamyelocytes) > 1% indicates that a LEFT SHIFT is Present. MCH (RBC) [Entitic mass] 30.2 pg 27.0-32.0 [facility] Work Phone: Nucleated RBC/100 WBC (Bld) [Ratio] 0 % 0-5 [facility] Work Phone: MCHC Auto (RBC) [Mass/Vol]on 08-02-2021 MCHC (RBC) [Mass/Vol] 30.9 g/dL 32-36 [facility] Work Phone: [phone] Panel Informationon 08-02 Estimated GFR (MDRD) Amer 115 mL/min >60 [facility] Work Phone: [phone] Comment on above: GFR Calc Estimated GFR (MDRD) Non-Af Amer 95 mL/min >60 [facility] Work Phone: [phone] Comment on above: Non- GFR Calc Thyroid Stimulating Hormone (TSH) 25.60 uIU/mL 0.358-3.74 [facility] Work Phone: Platelets bldon 08-02-2021 Platelets (Bld) [#/Vol] 304 10*3/uL 150-450 [facility] Work Phone: Serum or plasma albumin carmelita urement (mass/volume)on 08-02-2021 Albumin [Mass/Vol] 3.5 g/dL 3.2-5.0 [facility] Work Phone: Serum or plasma albumin/glob ulin mass ratioon 08-02-2021 Albumin/Globulin [Mass ratio] 0.9 {ratio} 0.9-2.4 [facility] Work Phone: Serum or plasma calcium carmelita urement (mass/volume)on 08-02-2021 Calcium [Mass/Vol] 9.0 mg/dL 8.5-10.1 [facility] Work Phone: Serum or plasma cholesterol in HDL measurement (mass/volume)on 08-02-2021 Cholesterol in HDL [Mass/Vol] 50 mg/dL >40 [facility] Work Phone: Comment on above: The drugs N-Acetylcy steine and Metamizole may falsely depress this assay. Reference Range HDL <40 mg/dL Low HDL Cholesterol HDL >or= 60 mg/dL High HDL Cholesterol Serum or plasma cholesterol in VLDL measurement (mass/volume)on 08-02-2021 Cholesterol in VLDL [Mass/Vol] 38 mg/dL 5-40 [facility] Work Phone: Serum or plasma creatinine m easurement (mass/volume)on 08-02-2021 Creatinine [Mass/Vol] 0.88 mg/dL 0.70-1.30 [facility] Work Phone: Comment on above: The validity of the calculated GFR & GFRAA in patients over 70 years has not been determined. Clinical correlation is essential. Serum or plasma low density lipoprotein (LDL) cholesterol measurement (mass/volume)on 08-02-2021 Cholesterol in LDL [Mass/Vol] 68 mg/dL 0-130 [facility] Work Phone: Serum or plasma urea nitroge n measurement (mass/volume)on 08-02-2021 Urea nitrogen [Mass/Vol] 15 mg/dL 7-18 [facility] Work Phone: Thin prep Papanicolaou smear with manual screeningon 08-02-2021 Thin prep Papanicolaou smear with manual screening 38 U/L 15-37 [facility] Work Phone: Thin prep Papanicolaou smear with manual screening 7 5-15 [facility] Work Phone: Whole blood hemoglobin A1c/t otal hemoglobin ratio (mass fraction)on 08-02-2021 HbA1c (Bld) [Mass fraction] 8.7 % 3.8-5.6 [facility] Work Phone: Comment on above: Normal < 5.7 % Predi abetic 5.7 - 6.4 % Diabetic >or= 6.5 % Please note range changes. Absolute lymphocyte counton 2021 Lymphocytes Auto (Unsp spec) [#/Vol] 2.96 10*3/uL 0.83-4.51 [facility] Work Phone: Basophil percentageon 2021 Basophil percentage 0 SEEN /hpf [facility] Work Phone: Basophils/100 WBC (Bld) 1.0 % 0-1 [facility] Work Phone: Bilirubin [Mass/Vol] 0.30 mg/dL 0.20-1.00 [facility] Work Phone: Comment on above: For patients on eltr ombopag therapy, use of Dimension [place] TBIL is not recommended. Chloride [Moles/Vol] 101 mmol/L 98-107 [facility] Work Phone: Cholesterol [Mass/Vol] 186 mg/dL <200 [facility] Work Phone: Comment on above: <200 mg/dL Desirable 200-240 mg/dL Borderline >240 mg/dL High Risk Eosinophils/100 WBC (Bld) 2.6 % 0-5 [facility] Work Phone: Glucose [Mass/Vol] 310 mg/dL 74-106 [facility] Work Phone: Comment on above: Glucose result great er than or equal to 200 mg/dLsuggests DIABETES MELLITUS per A.D.A. criteria. Neutrophils (Bld) [#/Vol] 4.1 10*3/uL 2.0-7.7 [facility] Work Phone: Neutrophils/100 WBC (Bld) 51.9 % 47-70 [facility] Work Phone: [phone] Potassium [Moles/Vol] 4.8 mmol/L 3.5-5.1 [facility] Work Phone: [phone] Protein [Mass/Vol] 7.6 g/dL 6.4-8.2 [facility] Work Phone: [phone] Sodium [Moles/Vol] 136 mmol/L 136-145 [facility] Work Phone: [phone] Triglyceride [Mass/Vol] 295 mg/dL [facility] Work Phone: [phone] Comment on above: The drugs N-Acetylcy steine and Metamizole may falsely depress this assay.Serum Triglycerides Reference Interval Normal <150 mg/dL Borderline high 150 - 199 mg/dL High 200 - 499 mg/dL Very High > or = 500 mg/dL WBC (Bld) [#/Vol] 8.0 10*3/uL 4.4-11.0 [facility] Work Phone: Bilirubin Test strip Ql (U)o n 2021 Bilirubin Ql (U) Negative Negative [facility] Work Phone: [phone] Blood erythrocytes count (nu mber/volume)on 2021 RBC (Bld) [#/Vol] 4.78 10*6/uL 4.6-6.2 [facility] Work Phone: [phone] Blood hemoglobin measurement (mass/volume)on 2021 Hemoglobin (Bld) [Mass/Vol] 14.2 g/dL 13.0-16.5 [facility] Work Phone: [phone] Blood lymphocytes/100 leukoc yteson 2021 Lymphocytes/100 WBC (Bld) 37.2 % 19-41 [facility] Work Phone: Blood monocytes/100 leukocyt eson 2021 Monocytes/100 WBC (Bld) 6.8 % 0-10 [facility] Work Phone: Blood platelet mean volumeon 2021 Platelet mean volume (Bld) [Entitic vol] 11.4 fL 6.2-12.0 [facility] Work Phone: Determination of erythrocyte mean corpuscular volume (MCV)on 2021 MCV (RBC) [Entitic vol] 93.9 fL 80-94 [facility] Work Phone: Hematocrit Auto (Bld) [Volum e fraction]on 2021 Hematocrit (Bld) [Volume fraction] 44.9 % 40-54 [facility] Work Phone: [phone] Ketones Test strip Ql (U)on 2021 Ketones Ql (U) Negative Negative [facility] Work Phone: Laboratory - Chemistry and C hemistry - challengeon 2021 ALP [Catalytic activity/Vol] 141 U/L 45-117 [facility] Work Phone: ALT [Catalytic activity/Vol] 60 U/L 16-61 [facility] Work Phone: CO2 [Moles/Vol] 26.0 mmol/L 21.0-32.0 [facility] Work Phone: Free T4 [Mass/Vol] 1.10 ng/dL 0.76-1.46 [facility] Work Phone: Globulin (S) [Mass/Vol] 4.2 g/dL 2.2-4.2 [facility] Work Phone: Magnesium [Mass/Vol] 2.4 mg/dL 1.6-2.6 [facility] Work Phone: Urea nitrogen/Creatinine [Mass ratio] 17.1 mg/mg 10-20 [facility] Work Phone: Laboratory - Hematology and Cell countson 2021 Erythrocyte distribution width (RBC) [Entitic vol] 43.2 fL 35.1-43.9 [facility] Work Phone: [phone] Erythrocyte distribution width (RBC) [Ratio] 12.5 % 11.6-14.6 [facility] Work Phone: [phone] Immature granulocytes/100 WBC (Bld) 0.500 % 0.0-0.9 [facility] Work Phone: [phone] Comment on above: IG% - Immature Granu locytes (promyelocytes, myelocytes and metamyelocytes) > 1% indicates that a LEFT SHIFT is Present. MCH (RBC) [Entitic mass] 29.7 pg 27.0-32.0 [facility] Work Phone: [phone] Nucleated RBC/100 WBC (Bld) [Ratio] 0 % 0-5 [facility] Work Phone: [phone] MCHC Auto (RBC) [Mass/Vol]on 2021 MCHC (RBC) [Mass/Vol] 31.6 g/dL 32-36 [facility] Work Phone: [phone] Mucus LM Ql (Urine sed)on Mucus Ql (Urine sed) 0 SEEN /hpf [facility] Work Phone: [phone] Nitrite Test strip Ql (U)on 2021 Nitrite Ql (U) Negative Negative [facility] Work Phone: [phone] Panel Informationon 05-03 Estimated GFR (MDRD) Amer 108 mL/min >60 [facility] Work Phone: [phone] Comment on above: GFR Calc Estimated GFR (MDRD) Non-Af Amer 89 mL/min >60 [facility] Work Phone: [phone] Comment on above: Non- GFR Calc Thyroid Stimulating Hormone (TSH) 7.40 uIU/mL 0.358-3.74 [facility] Work Phone: [phone] Microalbumin/Creatinine Ratio 16.2 mg/g CRE <30 [facility] Work Phone: Platelets bldon 2021 Platelets (Bld) [#/Vol] 386 10*3/uL 150-450 [facility] Work Phone: Protein Test strip Ql (U)on 2021 Protein Ql (U) 15 mg/dl Negative [facility] Work Phone: [phone] Serum or plasma albumin carmelita urement (mass/volume)on 2021 Albumin [Mass/Vol] 3.4 g/dL 3.2-5.0 [facility] Work Phone: [phone] Serum or plasma albumin/glob ulin mass ratioon 2021 Albumin/Globulin [Mass ratio] 0.8 {ratio} 0.9-2.4 [facility] Work Phone: [phone] Serum or plasma calcium carmelita urement (mass/volume)on 2021 Calcium [Mass/Vol] 9.6 mg/dL 8.5-10.1 [facility] Work Phone: [phone] Serum or plasma cholesterol in HDL measurement (mass/volume)on 2021 Cholesterol in HDL [Mass/Vol] 47 mg/dL [facility] Work Phone: Comment on above: The drugs N-Acetylcy steine and Metamizole may falsely depress this assay. Reference Range HDL <40 mg/dL Low HDL Cholesterol HDL >or= 60 mg/dL High HDL Cholesterol Serum or plasma cholesterol in VLDL measurement (mass/volume)on 2021 Cholesterol in VLDL [Mass/Vol] 59 mg/dL 5-40 [facility] Work Phone: [phone] Serum or plasma creatinine m easurement (mass/volume)on 2021 Creatinine [Mass/Vol] 0.94 mg/dL 0.70-1.30 [facility] Work Phone: Comment on above: The validity of the calculated GFR & GFRAA in patients over 70 years has not been determined. Clinical correlation is essential. Serum or plasma low density lipoprotein (LDL) cholesterol measurement (mass/volume)on 2021 Cholesterol in LDL [Mass/Vol] 80 mg/dL 0-130 [facility] Work Phone: Serum or plasma urea nitroge n measurement (mass/volume)on 2021 Urea nitrogen [Mass/Vol] 16 mg/dL 7-18 [facility] Work Phone: Squamous epithelial cells de tection in urine sediment by light microscopyon 2021 Epithelial cells.squamous LM Ql (Urine sed) 0 SEEN /hpf [facility] Work Phone: Thin prep Papanicolaou smear with manual screeningon 2021 Thin prep Papanicolaou smear with manual screening 31 U/L 15-37 [facility] Work Phone: Thin prep Papanicolaou smear with manual screening 9 5-15 [facility] Work Phone: Thin prep Papanicolaou smear with manual screening 29.0 mg/L NO RANGE EST. [facility] Work Phone: Urine blood detectionon 04-22 RBC Ql (U) Negative Negative [facility] Work Phone: RBC Ql (U) 0 SEEN /hpf [facility] Work Phone: Urine clarityon 2021 Clarity (U) Clear Clear [facility] Work Phone: Urine color determinationon 2021 Color (U) Yellow Yellow [facility] Work Phone: Urine creatinine measurement (mass/volume)on 2021 Creatinine (U) [Mass/Vol] 179.00 mg/dL NO RANGE EST. [facility] Work Phone: Urine glucose detectionon Glucose Ql (U) 1000 mg/dl Normal [facility] Work Phone: Urine leukocyte esterase det ection by dipstickon 2021 Leukocyte esterase Test strip Ql (U) Negative Negative [facility] Work Phone: Urine pHon 2021 pH (U) 5.0 [pH] [facility] Work Phone: Urine sediment bacteria coun t by microscopy (number/high power field)on 2021 Bacteria LM.HPF (Urine sed) [#/Area] 0 /[HPF] None Seen [facility] Work Phone: Urine specific gravity measu rementon 2021 Specific gravity (U) [Rel density] 1.025 [facility] Work Phone: Urobilinogen Auto test strip Ql (U)on 2021 Urobilinogen Ql (U) Normal mg/dl Normal [facility] Work Phone: Whole blood hemoglobin A1c/t otal hemoglobin ratio (mass fraction)on 2021 HbA1c (Bld) [Mass fraction] 10.1 % 3.8-5.6 [facility] Work Phone: Comment on above: Normal < 5.7 % Predi abetic 5.7 - 6.4 % Diabetic >or= 6.5 % Please note range changes. Bacteria identified Anaer cx Nom (Unsp spec) Anaerobic microbial culture No anaerobic bacteria isolated. [facility] Work Phone: Bacteria identified Cx Nom ( Wound) Wound Culture Meth. resistant Stap h. aureus [facility] Work Phone: Gram stain for investigation of transfusion reaction Microscopic observation Gram stain Nom (Unsp spec) [facility] Work Phone: Vital Signs Date Time Vital Sign Value Performing Clinician Facility 10-17-2024 10:37-0400 Body temperature 97.7 [degF] Dr. Alison Reyes MD Work Phone: [facility] 10-17-2024 10:37-0400 Diastolic blood pressure 70 mm[Hg] Dr. Alison Reyes MD Work Phone: [facility] 10-17-2024 10:37-0400 Heart rate 93 /min Dr. Alison Reyes MD Work Phone: [facility] 10-17-2024 10:37-0400 Respiratory rate 25 /min Dr. Alison Reyes MD Work Phone: [facility] 10-17-2024 10:37-0400 SaO2% (BldA) [Mass fraction] 97 % Dr. Alison Reyes MD Work Phone: [facility] 10-17-2024 10:37-0400 Systolic blood pressure 124 mm[Hg] Dr. Alison Reyes MD Work Phone: [phone] [place] [address] 10-17-2024 07:31-0400 Body height 172.[address] Alison Reyes MD Work Phone: [facility] 10-17-2024 07:31-0400 Body mass index (BMI) [Ratio] 58.3 kg/m2 Dr. Alison Reyes MD Work Phone: [facility] 10-17-2024 07:31-0400 Body weight [address] Alison Reyes MD Work Phone: [phone] [place] [address] 09-24-2024 09:30-0400 Body height 175.[address] Alison Reyes MD Work Phone: [facility] 09-24-2024 09:30-0400 Body mass index (BMI) [Ratio] 42.8 kg/m2 Dr. Alison Reyes MD Work Phone: [facility] 09-24-2024 09:30-0400 Body weight 131.[address] Alison Reyes MD Work Phone: [facility] 09-05-2024 21:11-0400 Body temperature 99.32 [degF] MELO OH DO [facility] 09-05-2024 21:11-0400 Diastolic Blood Pressure Non-Invasive 78 mm[Hg] MELO OH DO [facility] 09-05-2024 21:11-0400 Heart rate 80 /min MELO OH DO [facility] 09-05-2024 21:11-0400 Respiratory rate 18 /min MELO OH DO [facility] 09-05-2024 21:11-0400 Systolic Blood Pressure Non-Invasive 135 mm[Hg] MELO OH DO [facility] 09-02-2024 08:59-0400 Body height 175.[address] Alison Reyes MD Work Phone: [facility] 09-02-2024 08:59-0400 Body mass index (BMI) [Ratio] 57.7 kg/m2 Dr. Alison Reyes MD Work Phone: [facility] 09-02-2024 08:59-0400 Body weight 177.[address] Alison Reyes MD Work Phone: [facility] 09-02-2024 07:54-0400 Body height 175.[address] Alison Reyes MD Work Phone: [facility] 07-28-2024 13:14-0400 Body mass index (BMI) [Ratio] 58.3 kg/m2 Dr. Alison Reyes MD Work Phone: [facility] 07-28-2024 13:14-0400 Body weight 179.[address] Alison Reyes MD Work Phone: [facility] 06-05-2024 01:43-0500 Respiratory rate 18 /min TYRELL ESQUEDA DO [facility] 06-04-2024 23:48-0500 Body weight 177 kg TYRELL ESQUEDA DO [facility] 06-04-2024 23:48-0500 Diastolic Blood Pressure Non-Invasive 82 mm[Hg] TYRELL ESQUEDA DO [facility] 06-04-2024 23:48-0500 Heart rate 82 /min TYRELL ESQUEDA DO [facility] 06-04-2024 23:48-0500 Respiratory rate 20 /min TYRELL ESQUEDA DO [facility] 06-04-2024 23:48-0500 Systolic Blood Pressure Non-Invasive 142 mm[Hg] TYRELL ESQUEDA DO [facility] 05-15-2024 21:12-0500 Body temperature 98.2 [degF] Dr. Alison Reyes MD Work Phone: [facility] 05-15-2024 21:12-0500 Diastolic blood pressure 80 mm[Hg] Dr. Alison Reyes MD Work Phone: [facility] 05-15-2024 21:12-0500 Heart rate 72 /min Dr. Alison Reyes MD Work Phone: [facility] 05-15-2024 21:12-0500 Respiratory rate 22 /min Dr. Alison Reyes MD Work Phone: [facility] 05-15-2024 21:12-0500 SaO2% (BldA) [Mass fraction] 98 % Dr. Alison Reyes MD Work Phone: [facility] 05-15-2024 21:12-0500 Systolic blood pressure 160 mm[Hg] Dr. Alison Reyes MD Work Phone: [facility] 05-15-2024 18:05-0500 Body mass index (BMI) [Ratio] 59.6 kg/m2 Dr. Alison Reyes MD Work Phone: [facility] 05-15-2024 18:05-0500 Body weight 183.[address] Alison Reyes MD Work Phone: [facility] 08-04-2023 21:45-0400 Blood Pressure Cuff Size JESU HOLLAND MD [facility] 08-04-2023 21:45-0400 Blood Pressure Location JESU HOLLAND MD [facility] 08-04-2023 21:45-0400 Blood Pressure Method JESU HOLLAND MD [facility] 08-04-2023 21:45-0400 Body temperature 98.06 [degF] JESU HOLLAND MD [facility] 08-04-2023 21:45-0400 Diastolic Blood Pressure Non-Invasive 105 mm[Hg] JESU HOLLAND MD [facility] 08-04-2023 21:45-0400 Heart rate 105 /min JESU HOLLAND MD [facility] 08-04-2023 21:45-0400 Respiratory rate 20 /min JESU HOLLAND MD [facility] 08-04-2023 21:45-0400 Systolic Blood Pressure Non-Invasive 155 mm[Hg] JESU HOLLAND MD [facility] 06-13-2023 08:53-0500 Body temperature 96.9 [degF] Dr. Alison Reyes Work Phone: [facility] 06-13-2023 08:53-0500 Diastolic blood pressure 92 mm[Hg] Dr. Alison Reyes Work Phone: [facility] 06-13-2023 08:53-0500 Heart rate 82 /min Dr. Alison Reyes Work Phone: [facility] 06-13-2023 08:53-0500 Respiratory rate 18 /min Dr. Alison Reyes Work Phone: [facility] 06-13-2023 08:53-0500 SaO2% (BldA) [Mass fraction] 95 % Dr. Alison Reyes Work Phone: [facility] 06-13-2023 08:53-0500 Systolic blood pressure 194 mm[Hg] Dr. Alison Reyes Work Phone: [facility] 05-30-2023 23:46-0500 Blood Pressure Location MARIO ARTEAGA DO [facility] 05-30-2023 23:46-0500 Blood Pressure Method MARIO ARTEAGA DO [facility] 05-30-2023 23:46-0500 Body height 175.3 cm MARIO ARTEAGA DO [facility] 05-30-2023 23:46-0500 Body temperature 100.76 [degF] MARIO ARTEAGA DO [facility] 05-30-2023 23:46-0500 Body weight 181.8 kg MARIO ARTEAGA DO [facility] 05-30-2023 23:46-0500 Diastolic Blood Pressure Non-Invasive 83 mm[Hg] MARIO ARTEAGA DO [facility] 05-30-2023 23:46-0500 Heart rate 97 /min MARIO ARTEAGA DO [facility] 05-30-2023 23:46-0500 Respiratory rate 18 /min MARIO ARTEAGA DO [facility] 05-30-2023 23:46-0500 Systolic Blood Pressure Non-Invasive 150 mm[Hg] MARIO ARTEAGA DO [facility] 05-06-2023 13:42-0500 Body height 175.[address] Alison Reyes Work Phone: [facility] 05-06-2023 13:42-0500 Body mass index (BMI) [Ratio] 56.8 kg/m2 Dr. Alison Reyes Work Phone: [facility] 05-06-2023 13:42-0500 Body temperature 98 [degF] Dr. Alsion Reyes Work Phone: [facility] 05-06-2023 13:42-0500 Body weight 174.[address] Alison Reyes Work Phone: [facility] 05-06-2023 13:42-0500 Diastolic blood pressure 93 mm[Hg] Dr. Alison Reyes Work Phone: [facility] 05-06-2023 13:42-0500 Heart rate 75 /min Dr. Alison Reyes Work Phone: [facility] 05-06-2023 13:42-0500 Respiratory rate 20 /min Dr. Alison Reyes Work Phone: [facility] 05-06-2023 13:42-0500 SaO2% (BldA) [Mass fraction] 96 % Dr. Alison Reyes Work Phone: [facility] 05-06-2023 13:42-0500 Systolic blood pressure 139 mm[Hg] Dr. Alison Reyes Work Phone: [facility] 04-29-2023 07:49-0500 Blood Pressure Location SWAPNIL CONTE MD [facility] 04-29-2023 07:49-0500 Blood Pressure Method SWAPNIL CONTE MD [facility] 04-29-2023 07:49-0500 Body temperature 97.88 [degF] SWAPNIL CONTE MD [facility] 04-29-2023 07:49-0500 Diastolic Blood Pressure Non-Invasive 92 mm[Hg] SWAPNIL CONTE MD [facility] 04-29-2023 07:49-0500 Heart rate 85 /min SWAPNIL CONTE MD [facility] 04-29-2023 07:49-0500 Respiratory rate 18 /min SWAPNIL CONTE MD [facility] 04-29-2023 07:49-0500 Systolic Blood Pressure Non-Invasive 150 mm[Hg] SWAPNIL CONTE MD [facility] 04-22-2023 17:47-0500 Body height 173 cm JESU HOLLAND MD [facility] 04-22-2023 17:47-0500 Body temperature 98.24 [degF] JESU HOLLAND MD [facility] 04-22-2023 17:47-0500 Body weight 177.3 kg JESU HOLLAND MD [facility] 04-22-2023 17:47-0500 Diastolic Blood Pressure Non-Invasive 98 mm[Hg] JESU HOLLAND MD [facility] 04-22-2023 17:47-0500 Heart rate 86 /min JESU HOLLAND MD [facility] 04-22-2023 17:47-0500 Respiratory rate 24 /min JESU HOLLAND MD [facility] 04-22-2023 17:47-0500 Systolic Blood Pressure Non-Invasive 167 mm[Hg] JESU HOLLAND MD [facility] 02-28-2023 16:33-0500 Diastolic Blood Pressure Non-Invasive [address] MARIA ISABEL DAWSON MD [facility] 02-28-2023 16:33-0500 Heart rate 78 /min DR MARIA ISABEL DAWSON MD [facility] 02-28-2023 16:33-0500 Respiratory rate 20 /min DR MARIA ISABEL DAWSON MD [facility] 02-28-2023 16:33-0500 Systolic Blood Pressure Non-Invasive [address] MARIA ISABEL DAWSON MD [facility] 02-28-2023 15:37-0500 Body height 175.[address] MARIA ISABEL DAWSON MD [facility] 02-28-2023 15:37-0500 Body temperature 98.78 [degF] DR MARIA ISABEL DAWSON MD [facility] 02-28-2023 15:37-0500 Body weight [address] MARIA ISABEL DAWSON MD [facility] 02-28-2023 15:37-0500 Diastolic Blood Pressure Non-Invasive [address] MARIA ISABEL DAWSON MD [facility] 02-28-2023 15:37-0500 Heart rate 77 /min DR MARIA ISABEL DAWSON MD [facility] 02-28-2023 15:37-0500 Respiratory rate 20 /min DR MARIA ISABEL DAWSON MD [facility] 02-28-2023 15:37-0500 Systolic Blood Pressure Non-Invasive [address] MARIA ISABEL DAWSON MD [facility] 02-05-2023 09:50-0400 Diastolic blood pressure 95 mm[Hg] Dr. Alison Reyes Work Phone: [facility] 02-05-2023 09:50-0400 Heart rate 82 /min Dr. Alison Reyes Work Phone: [facility] 02-05-2023 09:50-0400 Respiratory rate 17 /min Dr. Alison Reyes Work Phone: [facility] 02-05-2023 09:50-0400 SaO2% (BldA) [Mass fraction] 95 % Dr. Alison Reyes Work Phone: [facility] 02-05-2023 09:50-0400 Systolic blood pressure 158 mm[Hg] Dr. Alison Reyes Work Phone: [facility] 02-05-2023 08:12-0400 Body mass index (BMI) [Ratio] 60.5 kg/m2 Dr. Alison Reyes Work Phone: [facility] 02-05-2023 08:12-0400 Body weight [address] Alison Reyes Work Phone: [facility] 02-05-2023 07:58-0400 Body height 175.[address] Alison Reyes Work Phone: [facility] 02-05-2023 07:58-0400 Body temperature 97.6 [degF] Dr. Alison Reyes Work Phone: [facility] 01-05-2023 14:00-0400 Reason For Taking VItal Signs DR PRABHJOT DURAN MD [facility] 01-05-2023 03:05-0400 Body temperature 97.34 [degF] DR PRABHJOT DURAN MD [facility] 01-05-2023 03:05-0400 Diastolic Blood Pressure Non-Invasive [address] PRABHJOT DURAN MD [facility] 01-05-2023 03:05-0400 Heart rate 86 /min DR PRABHJOT DURAN MD [facility] 01-05-2023 03:05-0400 Respiratory rate 18 /min DR PRABHJOT DURAN MD [facility] 01-05-2023 03:05-0400 Systolic Blood Pressure Non-Invasive [address] PRABHJOT DURAN MD [facility] 01-05-2023 01:16-0400 Body height 175.[address] PRABHJOT DURAN MD [facility] 01-05-2023 01:16-0400 Body temperature 97.16 [degF] DR PRABHJOT DURAN MD [facility] 01-05-2023 01:16-0400 Body weight 175.[address] PRABHJOT DURAN MD [facility] 01-05-2023 01:16-0400 Diastolic Blood Pressure Non-Invasive [address] PRABHJOT DURAN MD [facility] 01-05-2023 01:16-0400 Heart rate 89 /min DR PRABHJOT DURAN MD [facility] 01-05-2023 01:16-0400 Respiratory rate 20 /min DR PRABHJOT DURAN MD [facility] 01-05-2023 01:16-0400 Systolic Blood Pressure Non-Invasive [address] PRABHJOT DURAN MD [facility] 04-16-2022 10:54-0500 Diastolic blood pressure 80 mm[Hg] Dr. Alison Reyes Work Phone: [facility] 04-16-2022 10:54-0500 Heart rate 79 /min Dr. Alison Reyes Work Phone: [facility] 04-16-2022 10:54-0500 Respiratory rate 18 /min Dr. Alison Reyes Work Phone: [facility] 04-16-2022 10:54-0500 SaO2% (BldA) [Mass fraction] 96 % Dr. Alison Reyes Work Phone: [facility] 04-16-2022 10:54-0500 Systolic blood pressure 178 mm[Hg] Dr. Alison Reyes Work Phone: [facility] 04-16-2022 07:48-0500 Body height 175.[address] Alison Reyes Work Phone: [facility] 04-16-2022 07:48-0500 Body mass index (BMI) [Ratio] 59.3 kg/m2 Dr. Alison Reyes Work Phone: [facility] 04-16-2022 07:48-0500 Body temperature 97.6 [degF] Dr. Alison Reyes Work Phone: [facility] 04-16-2022 07:48-0500 Body weight 182.[address] Alison Reyes Work Phone: [facility] 02-17-2022 14:45-0400 Body height 175.[address] Alison Reyes Work Phone: [facility] Work Phone: 02-17-2022 14:45-0400 Body mass index (BMI) [Ratio] 60 kg/m2 Dr. Alison Reyes Work Phone: [facility] 02-17-2022 14:45-0400 Body temperature 98.1 [degF] Dr. Alison Reyes Work Phone: [facility] 02-17-2022 14:45-0400 Body weight 184.[address] Alison Reyes Work Phone: [facility] 02-17-2022 14:45-0400 Diastolic blood pressure 91 mm[Hg] Dr. Alison Reyes Work Phone: [facility] 02-17-2022 14:45-0400 Heart rate 81 /min Dr. Alison Reyes Work Phone: [facility] 02-17-2022 14:45-0400 Respiratory rate 16 /min Dr. Alison Reyes Work Phone: [facility] 02-17-2022 14:45-0400 SaO2% (BldA) [Mass fraction] 97 % Dr. Alison Reyes Work Phone: [facility] 02-17-2022 14:45-0400 Systolic blood pressure 184 mm[Hg] Dr. Alison Reyes Work Phone: [facility] 01-24-2022 09:15-0400 Body mass index (BMI) [Ratio] 60 kg/m2 Dr. Alison Reyes Work Phone: [facility] Work Phone: 01-24-2022 09:15-0400 Body weight 179.[address] Alison Reyes Work Phone: [facility] Work Phone: 06-12-2021 18:04-0500 Heart rate 82 /min [facility] Work Phone: 06-12-2021 18:04-0500 Respiratory rate 18 /min [facility] Work Phone: 06-12-2021 18:04-0500 SaO2% (BldA) [Mass fraction] 97 % [facility] Work Phone: 06-12-2021 17:51-0500 Body height 205.74 cm [facility] Work Phone: 06-12-2021 17:51-0500 Body mass index (BMI) [Ratio] 40.7 kg/m2 [facility] Work Phone: 06-12-2021 17:51-0500 Body temperature 96.8 [degF] [facility] Work Phone: 06-12-2021 17:51-0500 Body weight 172.36 kg [facility] Work Phone: 06-12-2021 17:51-0500 Diastolic blood pressure 105 mm[Hg] [facility] Work Phone: 06-12-2021 17:51-0500 Systolic blood pressure 196 mm[Hg] [facility] Work Phone: 04-16-2021 19:15-0500 Body temperature 97.5 [degF] [facility] Work Phone: 04-16-2021 19:15-0500 Heart rate 78 /min [facility] Work Phone: 04-16-2021 19:15-0500 SaO2% (BldA) [Mass fraction] 98 % [facility] Work Phone: 04-16-2021 17:36-0500 Body mass index (BMI) [Ratio] 53.1 kg/m2 [facility] Work Phone: 04-16-2021 17:36-0500 Body weight 167.82 kg [facility] Work Phone: 04-16-2021 17:36-0500 Diastolic blood pressure 84 mm[Hg] [facility] Work Phone: 04-16-2021 17:36-0500 Respiratory rate 16 /min [facility] Work Phone: 04-16-2021 17:36-0500 Systolic blood pressure 180 mm[Hg] [facility] Work Phone: Encounters Encounter Date Encounter Type Care Provider Facility Start: 01-26-2025 ambulatory Juani Turcios Facility :[facility] Start: 01-06-2025 End: 01-06-2025 ambulatory Alison Reyes Facility:[facility] Start: 10-29-2024 ambulatory Martha Bateman [facility] Start: 10-27-2024 End: 10-27-2024 Patient encounter procedure Juani Turcios VEHICLE COST ENGINEER-C -[facility] Work Phone: Start: 10-27-2024 End: 10-27-[address] Alison Reyes MD Work Phone: -[facility] Start: 10-27-2024 End: 10-27-2024 Patient encounter procedure Edna Garcia PAMatthew -[facility] Work Phone: Start: 10-27-2024 End: 10-27-[address] Alison Reyes MD Work Phone: -[facility] Start: 10-19-2024 ambulatory Alison Chin y:[facility] Start: 10-17-2024 End: 10-17-2024 Emergency department patient visit Dr. Alison Reyes MD Work Phone: -Emergency Department Work Phone: Start: 10-15-2024 ambulatory Alison Reyes Facilit y:[facility] Start: 10-08-2024 End: 10-08-2024 Patient encounter procedure Juain Tam VEHICLE COST ENGINEER-C -[facility] Work Phone: Start: 10-08-2024 End: 10-08-[address] Alison Reyes MD Work Phone: [facility] Work Phone: Start: 10-06-2024 End: 10-06-[address] Alison Reyes MD Work Phone: [facility] Work Phone: Start: 10-06-2024 End: 10-06-[address] Alison Reyes MD -[facility] Start: 10-06-2024 End: 10-06-2024 ambulatory Alison Reyes Facility:[facility] Start: 09-24-2024 End: 09-24-2024 Patient encounter procedure Edna Garcia PA-C -[facility] Work Phone: Start: 09-24-2024 End: 09-24-[address] Alison Reyes MD Work Phone: [facility] Work Phone: Start: 09-10-2024 End: 09-10-2024 Patient encounter procedure Edna Garcia PA-C -[facility] Work Phone: Start: 09-10-2024 End: 09-10-[address] Alison Reyes MD Work Phone: [facility] Work Phone: Start: 09-09-2024 ambulatory Alison Chin y:[facility] Start: 09-05-2024 End: 09-05-2024 Emergency department patient visit MELO OH DO [facility] Start: 09-03-2024 End: 09-03-[address] Alison Reyes MD Work Phone: [facility] Work Phone: Start: 09-03-2024 End: 09-03-2024 Patient encounter procedure Edna Garcia PA-C -[facility] Work Phone: Start: 09-03-2024 End: 09-03-2024 Patient encounter procedure Edna Garcia PA-C -[facility] Work Phone: Start: 09-03-2024 End: 09-03-[address] Alison Reyes MD Work Phone: [facility] Work Phone: Start: 09-02-2024 End: 09-02-[address] Arden Oviedo MD -[facility] Start: 09-02-2024 End: 09-03-[address] Alison Reyes MD Work Phone: [facility] Work Phone: Start: 07-28-2024 End: 07-28-2024 Patient encounter procedure Edna Garcia PA-C -[facility] Work Phone: Start: 07-28-2024 End: 07-28-2024 ambulatory Edna CEJA Facility:[facility] Start: 06-24-2024 End: 06-24-[address] Alison Reyes MD Work Phone: [facility] Work Phone: Start: 06-24-2024 End: 06-24-[address] Alison Reyes MD -Radiology, [place] Work Phone: Start: 06-24-2024 End: 06-24-2024 ambulatory Alison Reyes Facility:[facility] Start: 06-19-2024 ambulatory Alison Reyes Facilit y:[facility] Start: 06-12-2024 End: 06-12-[address] Abner Kelly MD -Physical Therapy Work Phone: Start: 06-12-2024 End: 06-12-2024 ambulatory Abner Kelly Facility:[facility] Start: 06-04-2024 End: 06-05-2024 Emergency department patient visit TYRELL SARAHIBENJI [facility] Start: 06-03-2024 End: 06-03-2024 Patient encounter procedure Edna Garcia PA-C -[facility] Work Phone: Start: 06-03-2024 End: 06-03-2024 ambulatory Alison Reyes Facility:[facility] Start: 05-19-2024 End: 05-19-[address] Alison Reyes MD -Laboratory, [facility] Start: 05-19-2024 End: 05-19-2024 ambulatory Alison Reyes Facility:[facility] Start: 05-15-2024 End: 05-15-2024 Emergency department patient visit Dr. Tamy Tanner DO -Emergency Department Work Phone: Start: 05-13-2024 End: 05-13-2024 Patient encounter procedure Edna Garcia PA-C -[facility] Work Phone: Start: 05-13-2024 End: 05-13-2024 ambulatory Alison Reyes Facility:[facility] Start: 05-12-2024 ambulatory Alison Reyes Facilit y:[facility] Start: 04-06-2024 End: 04-06-2024 Patient encounter procedure Edna Garcia PA-C -[facility] Work Phone: Start: 04-06-2024 End: 04-06-2024 ambulatory Alison Reyes Facility:[facility] Start: 03-17-2024 End: 03-17-[address] Selam Manzanares MD -[facility] Work Phone: Start: 03-17-2024 End: 03-17-2024 ambulatory Selam Manzanares Facility:[facility] Start: 03-12-2024 ambulatory Martha Bateman Facility:[facility] Start: 02-24-2024 End: 02-24-2024 ambulatory Alison Reyes Facility:[facility] Start: 02-13-2024 End: 02-13-2024 ambulatory Alison Reyes Facility:[facility] Start: 02-12-2024 End: 02-12-2024 ambulatory Alison Reyes Facility:[facility] Start: 01-31-2024 End: 01-31-2024 Emergency department patient visit Alison Reyes Facility:[facility] Start: 08-04-2023 End: 08-05-2023 Emergency department patient visit JESU HOLLAND MD Facility:[facility] Start: 08-04-2023 End: 08-04-2023 Emergency department patient visit JESU HOLLAND MD [facility] Start: 07-10-2023 End: 07-10-[address] Alison Reyes Work Phone: [facility] Work Phone: Start: 07-10-2023 End: 07-10-[address] Alison Reyes Work Phone: [facility] Start: 06-28-2023 End: 06-28-[address] Alison Reyes Work Phone: [facility] Work Phone: Start: 06-14-2023 End: 06-14-[address] Alison Reyes Work Phone: [facility] Work Phone: Start: 06-13-2023 End: 06-13-[address] Alison Reyes Work Phone: [facility]-Laboratory, [facility] Work Phone: Start: 06-13-2023 End: 06-13-[address] Alison Reyes Work Phone: [facility] Work Phone: Start: 05-31-2023 End: 05-31-2023 Emergency department patient visit MARIO Miles ARTEGAA DO Facility:B Start: 05-30-2023 End: 05-31-2023 Emergency department patient visit MARIO ARTEAGA DO [facility] Start: 05-06-2023 End: 05-06-[address] Alison Reyes Work Phone: [facility] Work Phone: Start: 04-29-2023 End: 04-29-2023 Emergency department patient visit NOT RECORDED PHYSICIAN Facility:B Start: 04-29-2023 End: 04-29-2023 Emergency department patient visit SWAPNIL CONTE MD [facility] Start: 04-22-2023 End: 04-22-2023 Emergency department patient visit NOT RECORDED PHYSICIAN Facility:B Start: 04-22-2023 End: 04-22-2023 Emergency department patient visit JESU HOLLAND MD [facility] Start: 04-19-2023 End: 04-19-[address] Alison Reyes Work Phone: [facility] Work Phone: Start: 04-12-2023 End: 04-12-[address] Alison Reyes Work Phone: [facility] Work Phone: Start: 03-13-2023 End: 03-13-[address] Alison Reyes Work Phone: [facility] Work Phone: Start: 03-13-2023 End: 03-13-[address] Alison Reyes Work Phone: [facility] Work Phone: Start: 02-28-2023 End: 02-28-2023 Emergency department patient visit NOT RECORDED PHYSICIAN Facility:B Start: 02-28-2023 End: 02-28-2023 Emergency department patient visit DR MARIA ISABEL DAWSON MD [facility] Start: 02-05-2023 End: 02-05-2023 Emergency department patient visit Dr. Alison Reyes Work Phone: [facility]-Emergency Department Work Phone: Start: 01-05-2023 End: 01-05-2023 Emergency department patient visit DESIRAE BHAGAT DEPUTY DIRECTOR - [facility] Facility:B Start: 01-05-2023 End: 01-05-2023 Emergency department patient visit DR PRABHJOT DURAN MD [facility] Start: 11-26-2022 End: 11-26-[address] Alison Reyes Work Phone: [facility] Work Phone: Start: 11-22-2022 End: 11-22-[address] Alison Reyes Work Phone: [facility] Work Phone: Start: 11-22-2022 End: 11-22-[address] Alison Reyes Work Phone: [facility] Start: 05-22-2022 End: 05-22-[address] Alison Reyes Work Phone: [facility] Work Phone: Start: 05-22-2022 End: 05-22-[address] Alison Reyes Work Phone[facility] Start: 05-02-2022 End: 05-02-[address] Alison Reyes Work Phone: [facility] Start: 04-16-2022 End: 04-16-2022 Emergency department patient visit Dr. Alison Reyes Work Phone: [facility]-Emergency Department Start: 02-17-2022 End: 02-17-2022 Emergency department patient visit Dr. Alison Reyes Work Phone: [facility]-Emergency Department Start: 01-24-2022 End: 01-24-[address] Alison Reyes Work Phone: [facility] Start: 01-02-2022 End: 01-02-[address] Alison Reyes Work Phone: [facility] Start: 12-14-2021 End: 12-14-[address] Alison Reyes Work Phone: [facility] Work Phone: Start: 12-14-2021 End: 12-14-[address] [facility] Start: 12-14-2021 End: 12-14-[address] Alison Reyes Work Phone: [facility] Start: 10-30-2021 End: 10-30-2021 [facility] Start: 08-02-2021 End: 08-02-2021 [facility] Start: 08-01-2021 End: 08-01-2021 Patient encounter procedure [facility] Start: 06-12-2021 End: 06-12-2021 [facility] Start[facility] 2021 End: 2021 [facility] Start: 04-16-2021 End: 04-16-2021 Emergency department patient visit [facility] Procedures Date Procedure Procedure Detail Performing Clinician Start: 10-17-[address] Alison Reyes MD Work Phone: Start: 09-04-[address] Alison [...] Prostate specific an tigen measurement Dr. Alison Ryees MD Work Phone: Comment on above: This test was perfor med using the TPSA assay method for the[employer]mn[employer] chemistry system. Values obtained with differentassay methods [...] 02-17-2022 CT of head without contrast Dr. Alison Reyes Work Phone: Start: 01-24-2022 Radiologic examinati on of knee Dr. Alison Reyes Work Phone: Start: 08-02-2021 Radiologic examinati on of knee Start: 06-12-2021 Plain chest X-ray Anaerobic microbial culture Dr. Alison Reyes Work Phone: Fracture of proximal end of femur (disorder) DR PRABHJOT DURAN MD Investigation of transfusion reaction Dr. Alison Reyes Work Phone: Microbial culture, routine Shasha Reyes Work Phone: Plan of Treatment Date Care Activity Detail Author Start: 10-17-2024 [facility] Start: 09-04-2024 Source specific culture [facility] Start: 09-04-2024 Anaerobic microbial culture Anaerobic Culture [facility] Start: 09-02-2024 Patient referral [facility] Work Phone: Start: 09-02-2024 X-ray of knee, four or more views Knee 4 or More Views [facility] Start: 09-02-2024 XR Knee GE 4 Views [facility] Start: 05-15-2024 [facility] Start: 04-19-2023 Patient referral [facility] Work Phone: Start: 04-17-2023 Patient referral [facility] Work Phone: Start: 02-05-2023 [facility] Patient Education [facility] Work Phone: Patient referral [facility] Work Phone: Immunizations Immunization Date Immunization Notes Care Provider Fa [facility]3]franki 10-25-2015 tetanus toxoid, redu gloria diphtheria toxoid, and acellular pertussis vaccine, adsorbed DR PRABHJOT DURAN MD [facility] Payers Date Payer Category Payer Medicaid [id number] 2024 Self-pay [id number] 2023 Unknown [id number] 2023 Unknown [id number] 2023 Private Health Insurance [id number] 2023 Unknown [id number] 1967 Unknown [id number] 2.16.8 40.1.938137.3.579.2.627 1967 Unknown [id number] 2.16.8 40.1.488453.3.579.2.627 1967 Unknown [id number] 2.16.8 40.1.545225.3.579.2.627 1967 Unknown [id number] 2.16.8 40.1.821335.3.579.2.627 1967 Unknown [id number] 2.16.8 40.1.762818.3.579.2.627 1967 Unknown [id number] 2.16.8 40.1.483430.3.579.2.627 1967 Unknown [id number] 2.16.8 40.1.992351.3.579.2.627 1967 Unknown [id number] 2.16.8 40.1.046860.3.579.2.627 Medicare [id number] Medicare [id number] Private Health Insurance [id number] Unknown [id number] Unknown [id number] 2.16.8 40.1.731173.3.579.2.462 Unknown [id number] 2.16.8 40.1.657726.3.579.2.462 Unknown [id number] 2.16.8 40.1.579098.3.579.2.462 Unknown [id number] 2.16.8 40.1.170310.3.579.2.462 Unknown [id number] 2.16.8 40.1.178457.3.579.2.462 Unknown [id number] 2.16.8 40.1.768292.3.579.2.462 Unknown [id number] 2.16.8 40.1.346357.3.579.2.462 Unknown [id number] 2.16.8 40.1.216187.3.579.2.462 Unknown [id number] 2.16.8 40.1.348724.3.579.2.462 Unknown [id number] 2.16.8 40.1.995298.3.579.2.462 Unknown [id number] 2.16.8 40.1.208189.3.579.2.462 Unknown [id number] 2.16.8 40.1.182789.3.579.2.462 Unknown [id number] 2.16.8 40.1.446588.3.579.2.462 Unknown [id number] 2.16.8 40.1.179405.3.579.2.462 Unknown [id number] 2.16.8 40.1.463656.3.579.2.462 Unknown [id number] 2.16.8 40.1.521935.3.579.2.462 Unknown [id number] 2.16.8 40.1.548762.3.579.2.462 Unknown [id number] 2.16.8 40.1.375430.3.579.2.462 Unknown [id number] 2.16.8 40.1.026191.3.579.2.462 Unknown [id number] 2.16.8 40.1.878045.3.579.2.462 Unknown [id number] 2.16.8 40.1.945118.3.579.2.462 Unknown [id number] 2.16.8 40.1.050589.3.579.2.462 Unknown [id number] 2.16.8 40.1.924785.3.579.2.462 Unknown [id number] 2.16.8 40.1.682801.3.579.2.462 Unknown [id number] 2.16.8 40.1.947722.3.579.2.462 Unknown [id number] 2.16.8 40.1.574281.3.579.2.462 Unknown [id number] 2.16.8 40.1.938450.3.579.2.462 Unknown [id number] 2.16.8 40.1.984935.3.579.2.462 Unknown [id number] 2.16.8 40.1.685694.3.579.2.462 Unknown [id number] 2.16.8 40.1.519245.3.579.2.462 Unknown [id number] 2.16.8 40.1.814228.3.579.2.462 Unknown [id number] 2.16.8 40.1.539338.3.579.2.462 Unknown [id number] 2.16.8 40.1.888553.3.579.2.462 Unknown [id number] 2.16.8 40.1.986054.3.579.2.462 Unknown [id number] 2.16.8 40.1.120994.3.579.2.462 Social History Date Type Detail Facility Start: 06-12-2021 End: 06-28-2023 Tobacco smoking status ILIS Unknown if ever smoked [facility] Start: 07-25-2020 Occasional [facility] Start: 1965 Sex Assigned At Male [facility] Start: 12-02-2018 End: 10-17-2024 Tobacco smoking status Never smoked tobacco (finding) [facility] Comment on above: No smoke exposure Sexual Orientation [facility] anupama [facility] Start: 10-15-2018 End: 07-07-2024 Sex Male (finding) [facility] Medical Equipment Procedure Code Equipment Code Equipment [...] 09-05-2024 Functional Status Activity Jessie cordova Independent [facility] 09-05-2024 Functional Status Standard Safet y ID band on, Allergy Band on, Call device within reach, Bed in low position, Wheels locked, Upper/Half-Length side-rails up, Phone within reach, personal items within reach, Safety level maintained [facility] 06-05-2024 Functional Status Independent [facility] 06-04-2024 Functional Status Awake [facility] 08-04-2023 Functional Status Independent [facility] 08-04-2023 Functional Status Ambulation in De [place], Ambulation in Room [facility] 04-29-2023 Functional Status Independent [facility] 04-29-2023 Functional Status ID band on, Allergy Band on, Call device within reach, Bed in low position, Wheels locked, Upper/Half-Length side-rails up, Safety level maintained [facility] 04-22-2023 Functional Status Up ad kwabena [facility] 02-28-2023 Functional Status Standard Safet y ID band on, Call device within reach, Bed in low position, Wheels locked, Upper/Half-Length side-rails up, Phone within reach [facility] 01-05-2023 Functional Status Assistive Device None [facility] 01-05-2023 Functional Status Room check performed [facility] Mental Status Date Assessment Result Facility 10-17-2024 Cognitive function Level Of Cons ciousness Awake;Alert;Appropriate;Follow s Commands [facility] Work Phone: 09-05-2024 Mental Status Orientation Oriented x 4 [facility] 09-05-2024 Mental Status [facility] 06-05-2024 Mental Status Orientation Oriented x 4 [facility] 06-04-2024 Mental Status [facility] 08-04-2023 Mental Status Orientation Oriented x 4 [facility] 08-04-2023 Mental Status [facility] 05-30-2023 Mental Status Oriented x 4 [facility] 04-29-2023 Mental Status Orientation Oriented x 4 [facility] 04-29-2023 Mental Status [facility] 04-22-2023 Mental Status Oriented x 4 [facility] 01-05-2023 Mental Status Orientation Oriented x 4 [facility] Clinical Notes 01-05-2023 to 09-06-2024 Note Date [...] or higher after 2 days on antibiotics [id number] The [employer]. [address] [place] [address]. All rights reserved. This information is not intended as a substitute for professional medical care. Always follow your healthcare professional's instructions. Follow Up Care 09/05/2024 21:02:36 With:Go to emergency room if symptoms worsen Address:Unknown When:2-4 days With:ALISON REYES MD Address: [address] [address] [phone] When:2-4 days [facility] 09-05-2024 Note Discharge Instructions Thank you for allowing [facility] to assist you with your healthcare needs. [...] MD When:Within 2-4 days Where:[address] [address] [phone] Allergies Lexapro Medications Please ask your primary [...] or higher after 2 days on antibiotics [phone] [employer]. [address] [place] [address], [place] [address]. All rights reserved. This information is not intended as a substitute for professional medical care. Always follow your healthcare professional's instructions. Additional Information VACCINATE! IT SAVES LIVES! Members of the community who have not yet received the COVID-19 vaccine and would like to receive it can visit one of [facility] vaccine clinics. There are many vaccine clinic locations within the [facility]. For locations and available times, please visit www.[email or web address]. gov/. It is important to note that some COVID mobile vaccine clinics are held outdoors and may be canceled in rainy or stormy conditions. To learn more about pediatric vaccinations (ages 5-11), we invite you to visit the [facility] webpage. https://www.akWyzerrs.org/p ages/0942-Oacny-Btswmfcvqwd-Freq vjmvum-Gjadq-Tccnriuxr.html To learn more about the COVID-19 vaccine, we invite you to visit the CDC website for a list of frequently asked questions. https://www.cdc.gov/coronavirus/ 2019-ncov/vaccines/faq.html [facility] Patient Portal Access Instructions: Stay connected with your healthcare team and access your personal medical information anytime with the [facility] Patient Portal. If you would like a full copy of your medical records please contact the [facility] Medical Records Department Saturday through Saturday between 8a.m. and 4:30p.m. Please follow the directions below to access the portal: 1.Access the email account you provided upon registration to the hospital.2.Look for an invitation email from [facility].3.Open the email and access the invitation link: Accept Invitation to [facility]4.Fill in the required lockwood to create your account. Sign into [email or web address] with your username and password that you [...] you will allow to register on the [employer] Patient Portal for access to your information. You can also access the [employer] Patient Portal on the Alitalia zeinab. Simply click on Health Records under Health Data and then click on the Freedom2 logo. HOW TO SAFELY DISPOSE OF PRESCRIPTION [...] Call your local pharmacy or go to http://[employer].OnPath Technologies/3B9Wy5a to find one close to you.3.Make use of household items: Use cat litter or old coffee grounds to dispose medications if other options are not available. Mix your drugs with these household products, seal them in an airtight container and throw it into the garbage. Call [facility]: [phone] to be sure your drugs can be [...] aware that I should contact my doctor. Patient/Office Secretary Signature: Date/Time: Relationship to Patient: Witness Name/Signature: Date/Time: [facility] 09-05-2024 Note Exam Date Time Procedure Performing Provider Status 09/05/24 10:[address] Abd/Pelvis w/ IV Contrast Only ALEXEI ALDANA MD; Auth (Verified) [id number] ORIGINAL EXAMINATION: CT OF THE ABDOMEN AND [...] Date: 09/05/2024 10:24:56 PM Ordering Provider: MELO [facility] [id number] Evaluation note* Diagnosis Onset Date Resolution Status [...] of knee acute October 08, 2024 1:52pm [facility] Work Phone: 1(671) 459-659204-08-2025 Evaluation note* Diagnosis Onset Date Resolution Status [...] 2024 1:52pm Gait difficulty acute September 1:52pm [facility] Work Phone: 1(604) 561-188703-05-2025 Radiology Diagnostic study note [facility] Imaging Services [address] [place] [address] Shoulder min 2 Views MR#: [id number] Acct: [id number] Name: OK GOMEZ Rep #: [id number] : 1965 M 59 From: Micheal Mcnair MD PCP: Dr. Alison Reyes MD Status: RE G CLI Study:Shoulder min 2 Views Date of Exam: 06/24/24 Exam# [id number] Ordering Dr: Alison Reyes MD PROCEDURE: SHOULDER MIN 2 VIEWS REASON FOR EXAM: Pain. TECHNIQUE: Five view right shoulder series COMPARISON: None. RAD/Shoulder min 2 Views IMPRESSION: Mild degenerative changes are seen of the right acromioclavicular joint. The right glenohumeral joint demonstrates minimal degenerative changes, without apparent joint narrowing. Satisfactory alignment is seen. No fracture or other significant abnormality is identified Reading Location: [id number] CC: Dr. Alison Reyes MD ~ Telephonic Case Manager: Signed [facility]02-14-2025 Hospital Discharge instructions Patient Education 06/05/2024 [...] the splint. If you have to weara wvnl-unr-zrrb knee brace, you can open it to apply the ice pack, or heat, directly to the knee. Never put ice directly on the skin. Always wrap the ice in a towel or other type of cloth. You may use vuds-lpj-hyigfjk pain medicine to control pain, unless another [...] wet, you can dry it with a chair set to cool. If you have a upud-ftv-nbmx knee brace, you can remove this to [...] toes become cold, blue, numb, or tingly [phone] [employer]. [address] [place] [address], [place] [address]. All rights reserved. This information is not [...] t go away after bandage is removed [phone] [employer]. [address] [place] [address]. All rights reserved. This information is not intended as a substitute for professional medical care. Always follow yourhealthcare professional's instructions. Follow Up Care 06/04/2024 23:48:08 With:DOMENIC DUFFY MD, Orthopedic Address: [address] [place] [address] [address] [facility] [place] [address] [phone] When:2-4 days With:ALISON REYES MD Address: [address] [address] [phone] When:2-4 days [facility] 02-14-2025 Emergency department Discharge summary Discharge Instructions Thank you for allowing [facility] to assist you with your healthcare needs. [...] DOMENIC DUFFY MD, Orthopedic When:Within 2-4 days Where:[address] [place] [address] [address] [facility] [place] [address]- [phone] Follow Up with ALISON REYES MD When:Within 2-4 days Where:[address] [address] [phone] Allergies Lexapro Medications Please ask your primary [...] the splint. If you have to weara eohn-cgh-rgii knee brace, you can open it to apply the ice pack, or heat, directly to the knee. Never put ice directly on the skin. Always wrap the ice in a towel or other type of cloth. You may use zxiq-ljm-zzfmoep pain medicine to control pain, unless another [...] wet, you can dry it with a chair set to cool. If you have a yser-pgi-lymp knee brace, you can remove this to [...] toes become cold, blue, numb, or tingly 5633-6738 [employer]. [address] [place] [address]. All rights reserved. This information is not [...] t go away after bandage is removed 2596-1772 [employer]. [address] [place] [address]. All rights reserved. This information is not intended as a substitute for professional medical care. Always follow yourhealthcare professional's instructions. Additional Information VACCINATE! IT SAVES LIVES! Members of the community who have not yet received the COVID-19 vaccine and would like to receive it can visit one of [facility] vaccine clinics. There are many vaccine clinic locations within the [facility]. For locations and available times, please visit www.[email or web address]/. It is important to note that some COVID mobile vaccine clinics are held outdoors and may be canceled in rainy or stormy conditions. To learn more about pediatric vaccinations (ages 5-11), we invite you to visit the [facility] webpage. https://www.[facility].org/pages/8956-Tqrss-Atfnsjlpqzm-Ybqjenhwcb-Eobym-Eto stions.htmlTo learn more about the COVID-19 vaccine, we invite you to visit the CDC website for a list of frequently asked questions. https://www.cdc.gov/coronavirus/2019-ncov/vaccines/faq.html [facility] Patient Portal Access Instructions: Stay connected with your healthcare team and access your personal medical information anytime with the [facility] Patient Portal. If you would like a full copy of your medical records please contact the [facility] Medical Records Department Saturday through Saturday between 8a.m. and 4:30p.m. Please follow the directions below to access the portal: 1.Access the email account you provided upon registration to the [facility].2.Look for an invitation email from [facility].3.Open the email and access the invitation link: Accept Invitation to [facility]4.Fill in the required lockwood to create your account. Sign into [email or web address] with your username and password that you [...] you will allow to register on the [facility] Patient Portal for access to your information. You can also access the [facility] Patient Portal on the Alitalia zeinab. Simply click on Health Records under Mobilygen and then click on the [facility] logo. [...] Call your local pharmacy or go to http://bit.OnPath Technologies/0N2Py3f to find one close to you.3.Make use of household items: Use cat litter or old coffee grounds to dispose medications if other options arenot available. Mix your drugs with these household products, seal them in an airtight container andthrow it into the garbage. Call [facility]: [phone] to be sure your drugs can be [...] aware that I should contact my doctor. Patient/Office Secretary Signature: Date/Time: Relationship to Patient: Witness Name/Signature: Date/Time: [facility] [id number] Note* Exam Date Time Procedure Performing Provider Status 06/05/24 12:55 AM XR Knee 3 Views Left TEOFILO ROMERO MD; Auth (Verified) [id number] ORIGINAL EXAMINATION: THREE XRAY VIEWS OF THE [...] Sign Date: 06/05/2024 1:12:00 AM Ordering Provider: [facility]02-12-2025 Evaluation note* Diagnosis Onset Date Resolution Status [...] left thigh acute September 10, 2024 7:51am [employer] Work Phone: 1(789) 486-815601-22-2025 Evaluation note* Diagnosis Onset Date Resolution Status Admit Date Healing wound inactive April 2:21pm Abscess of thigh acute June 03, 2024 1:33pm Abscess of left thigh acute Jul 12:43pm Localized osteoarthritis of knee acute September 02, 2024 7 :45am Osteoarthritis of right knee acute September 02, 2024 7:45am [employer] Work Phone: 1(712) 317-860601-22-2025 Evaluation note* Diagnosis Onset Date Resolution Status [...] right knee acute September 02, 2024 7:45am [facility] Work Phone: 1(264) 381-383401-22-2025 Evaluation note* Diagnosis Onset Date Resolution Status [...] left thigh acute September 03, 2024 1:40pm [facility] Work Phone: 1(843) 438-171811-26-2024 Evaluation note* Diagnosis Onset Date Resolution Status Admit Date Cellulitis of left thigh inactive March 17, 2024 9:36am Abscess of thigh acute April 06, 2024 12:51pm Healing wound acute April 2:21pm Abscess of thigh acute June 03, 2024 1:33pm [facility] Work Phone: 1(433) 467-515104-15-2024 Hospital Discharge instructions Patient Education 08/04/2023 23:08:32 [...] swelling, or pus coming from any wound [phone] [employer]. [address] [place] [address]. All rights reserved. This information is not intended as a substitute for professional medical care. Always follow yourhealthcare professional's instructions. Follow Up Care 08/04/2023 21:35:23 With:ALISON REYES MD Address: [address] [phone] When:2-4 days [facility] 04-14-2024 Note Discharge Instructions Thank you for allowing [facility] to assist you with your healthcare needs. [...] days Where: [address] [place] [phone] Allergies Lexapro Medications Please ask your primary [...] swelling, or pus coming from any wound [phone] [employer]. [address] [place] [address]. All rights reserved. This information is not intended as a substitute for professional medical care. Always follow yourhealthcare professional's instructions. Additional Information VACCINATE! IT SAVES LIVES! Members of the community who have not yet received the COVID-19 vaccine and would like to receive it can visit one of [facility] vaccine clinics. There are many vaccine clinic locations within the [facility]. For locations and available times, please visit www.gettheshot.coronavirus.[place].gov/. It is important to note that some COVID mobile vaccine clinics are held outdoors and may be canceled in rainy or stormy conditions. To learn more about pediatric vaccinations (ages 5-11), we invite you to visit the [facility] webpage. https://www.[facility].org/pages/4542-Wkujy-Lqwmkwdmrwb-Skyizhzdfg-Xqebh-Yef stions.htmlTo learn more about the COVID-19 vaccine, we invite you to visit the CDC website for a list of frequently asked questions. https://www.cdc.gov/coronavirus/2019-ncov/vaccines/faq.html [facility] Patient Portal Access Instructions: Stay connected with your healthcare team and access your personal medical information anytime with the [facility] Patient Portal. If you would like a full copy of your medical records please contact the [facility] Medical Records Department Saturday through Saturday between 8a.m. and 4:30p.m. Please follow the directions below to access the portal: 1.Access the email account you provided upon registration to the hospital.2.Look for an invitation email from [facility].3.Open the email and access the invitation link: Accept Invitation to [facility]4.Fill in the required lockwood to create your account. Sign into [email or web address] with your username and password that you [...] you will allow to register on the [facility] Patient Portal for access to your information. You can also access the [facility] Patient Portal on the Mapbar. Simply click on Health Records under Mobilygen and then click on the Freedom2 logo. HOW TO SAFELY DISPOSE OF PRESCRIPTION [...] Call your local pharmacy or go to http://[employer].OnPath Technologies/0R4Og3r to find one close to you.3.Make use of household items: Use cat litter or old coffee grounds to dispose medications if other options arenot available. Mix your drugs with these household products, seal them in an airtight container andthrow it into the garbage. Call [facility]: [phone] to be sure your drugs can be [...] aware that I should contact my doctor. Patient/Office Secretary Signature: Date/Time: Relationship to Patient: Witness Name/Signature: Date/Time: [facility]04-14-2024 Note ORIGINAL EXAMINATION: TWO XRAY VIEWS [...] Date: 08/04/2023 11:03:09 PM [facility]ing [facility] NoteSinus rhythm Left anterior fascicular block Abnormal R-wave progression, early transition Electronic Signature: JESU HOLLAND MD 08/04/2023 21:45:23[facility] 02-09-2024 Hospital Discharge instructions Patient Education [...] you to stop. You may use an dfev-uco-fqxzquk pain medicine to control pain, unless another [...] the abscess Boil returns after getting better [phone] [employer]. [address] [place] [address]. All rights reserved. This information is not [...] loosen secretions in the nose and lungs. Drww-jwq-wctkhyk cold medicines will not shorten the length of time you re sick, but they may be helpful for the following symptoms: cough, sore throat, and nasal and sinus congestion. If you take prescription medicines, ask your healthcare provider or pharmacist which ojrw-eru-byhpdtc medicines are safe to use. (Note: Don't [...] it goes along with a muffled voice [phone] [employer]. [address] [place] [address]. All rights reserved. This information is not intended as a substitute for professional medical care. Always follow yourhealthcare professional's instructions. Follow Up Care 05/30/2023 23:40:08 With:ALISON REYES MD Address: [address] [address] [phone] When:2-4 days [facility] 02-08-2024 Note Discharge Instructions Thank you for allowing [facility] to assist you with your healthcare needs. [...] Within 2-4 days Where: [address] [address] [phone] Allergies Lexapro Medications Please ask your primary [...] blood sodium or high potassium); porphyria, or dvqpdql-7-vxmjbswoi dehydrogenase (G6PD) deficiency; or if you use [...] may report side effects to FDA at 8-003-JDV-6033. What other drugs will affect sulfamethoxazole and [...] sulfamethoxazole and trimethoprim. This includes prescription and ngou-vss-idpikjr medicines, vitamins, and herbal products. Not all [...] to ensure that the information provided by [employer]. ('[employer]') is accurate, up-to-date, and complete, but no guarantee is made to that effect. Drug information contained herein may be time sensitive. [employer] information has been compiled for use by healthcare practitioners and consumers in the [place] and therefore [employer] does not warrant that uses outside of the [place] are appropriate, unless specifically indicated otherwise. [employer]s drug information does not endorse drugs, diagnose patients or recommend therapy. MyCityFaces drug information isan informational resource designed to [...] effective or appropriate for any given patient. [employer] does not assume any responsibility for any aspect of healthcare administered with the aid of information [employer] provides. The information contained herein is not intended to cover all possible uses, directions, precautions, warnings, drug interactions, allergic reactions, or adverse effects. If you have questions about the drugs you are taking, check with your doctor, nurse or pharmacist. Copyright 9740-0787 [employer]. Version: 13.. Revision Date: 11/22/2022. cephalexin (sef [...] may report side effects to FDA at 7-514-PRT-3691. What other drugs will affect cephalexin? Tell your doctor about all your other medicines, especially: metformin; or probenecid. This list is not complete. Other drugs may affect cephalexin, including prescription and gbuz-myo-mbksilz medicines, vitamins, and herbal products. Not all [...] to ensure that the information provided by [employer]. ('[employer]') is accurate, up-to-date, and complete, but no guarantee is made to that effect. Drug information contained herein may be time sensitive. [employer] information has been compiled for use by healthcare practitioners and consumers in the [place] and therefore [employer] does not warrant that uses outside of the [place] are appropriate, unless specifically indicated otherwise. [employer]s drug information does not endorse drugs, diagnose patients or recommend therapy. [employer]s drug information isan informational resource designed to [...] effective or appropriate for any given patient. [employer] does not assume any responsibility for any aspect of healthcare administered with the aid of information [facility] provides. The information contained herein is not intended to cover all possible uses, directions, precautions, warnings, drug interactions, allergic reactions, or adverse effects. If you have questions about the drugs you are taking, check with your doctor, nurse or pharmacist. Copyright 3332-5248 [employer]. Version: .. Revision Date: 11/21/2022. Education Materials Abscess (Antibiotic [...] you to stop. You may use an odxk-uyf-mhubkqp pain medicine to control pain, unless another [...] the abscess Boil returns after getting better 0397-7201 [employer]. [address] [place] [address], [place] [address]. All rights reserved. This information is not [...] loosen secretions in the nose and lungs. Nqfp-qpm-wrusddc cold medicines will not shorten the length of time you re sick, but they may be helpful for the following symptoms: cough, sore throat, and nasal and sinus congestion. If you take prescription medicines, ask your healthcare provider or pharmacist which mnnq-wbu-uwwxona medicines are safe to use. (Note: Don't [...] it goes along with a muffled voice 2282-7593 [employer]. [address] [place] [address]. All rights reserved. This information is not intended as a substitute for professional medical care. Always follow yourhealthcare professional's instructions. Additional Information VACCINATE! IT SAVES LIVES! Members of the community who have not yet received the COVID-19 vaccine and would like to receive it can visit one of [facility] vaccine clinics. There are many vaccine clinic locations within the [facility]. For locations and available times, please visit www.gettheshot.[email or web address].[place].gov/. It is important to note that some COVID mobile vaccine clinics are held outdoors and may be canceled in rainy or stormy conditions. To learn more about pediatric vaccinations (ages 5-11), we invite you to visit the [facility] webpage. https://www.[facility].org/pages/3987-Aeyhg-Gcfdrzxidyn-Jecrycbljp-Oelmp-Kia stions.htmlTo learn more about the COVID-19 vaccine, we invite you to visit the CDC website for a list of frequently asked questions. https://www.cdc.gov/coronavirus/2019-ncov/vaccines/faq.html [facility] Patient Portal Access Instructions: Stay connected with your healthcare team and access your personal medical information anytime with the [facility] Patient Portal. If you would like a full copy of your medical records please contact the [facility] Medical Records Department Saturday through Saturday between 8a.m. and 4:30p.m. Please follow the directions below to access the portal: 1.Access the email account you provided upon registration to the [facility].2.Look for an invitation email from [facility].3.Open the email and access the invitation link: Accept Invitation to Nginx4.Fill in the required lockwood to create your account. Sign into www.Scali with your username and password that you [...] you will allow to register on the Nginx Patient Portal for access to your information. You can also access the Nginx Patient Portal on the Mapbar. Simply click on Health Records under Mobilygen and then click on the Freedom2 logo. HOW TO SAFELY DISPOSE OF PRESCRIPTION [...] Call your local pharmacy or go to http://[employer].OnPath Technologies/[email or web address] to find one close to you.3.Make use of household items: Use cat litter or old coffee grounds to dispose medications if other options arenot available. Mix your drugs with these household products, seal them in an airtight container andthrow it into the garbage. Call [facility]: [phone] to be sure your drugs can be [...] aware that I should contact my doctor. Patient/Office Secretary Signature: Date/Time: Relationship to Patient: Witness Name/Signature: Date/Time: [facility]01-08-2024 Hospital Discharge instructions Patient Education 04/29/2023 [...] Boil returns when you are at home [phone] [employer]. [address] [place] [address], [place] [id number]. All rights reserved. This information is not intended as a substitute for professional medical care. Always follow yourhealthcare professional's instructions. Follow Up Care 04/29/2023 07:45:59 With:Follow up with primary care provider Address:Unknown When:2-4 days [facility] 01-08-2024 Note Discharge Instructions Thank you for allowing [facility] to assist you with your healthcare needs. [...] a day Duration: 7 Days Pickup at [id number] Unchanged albuterol (ProAir HFA MDI (90 mcg/ [...] a day Duration: 5 Days Pharmacy Information [id number]: [address] [place], [place] [phone] Please take this list to your next [...] blood sodium or high potassium); porphyria, or mhlhwtk-6-aebzbiwsv dehydrogenase (G6PD) deficiency; or if you use [...] may report side effects to FDA at 3-857-FLL-5847. What other drugs will affect sulfamethoxazole and [...] sulfamethoxazole and trimethoprim. This includes prescription and ajye-ple-rysyidf medicines, vitamins, and herbal products. Not all [...] to ensure that the information provided by Le[employer]. ('Multum') is accurate, up-to-date, and complete, but no guarantee is made to that effect. Drug information contained herein may be time sensitive. [employer] information has been compiled for use by healthcare practitioners and consumers in the [place] and therefore [employer] does not warrant that uses outside of the [place] are appropriate, unless specifically indicated otherwise. [employer]s drug information does not endorse drugs, diagnose patients or recommend therapy. [employer]s drug information isan informational resource designed to [...] effective or appropriate for any given patient. [employer] does not assume any responsibility for any aspect of healthcare administered with the aid of information [employer] provides. The information contained herein is not intended to cover all possible uses, directions, precautions, warnings, drug interactions, allergic reactions, or adverse effects. If you have questions about the drugs you are taking, check with your doctor, nurse or pharmacist. Copyright 2191-1816 Le[employer]. Version: 13.. Revision Date: 11/22/2022. Education Materials [...] Boil returns when you are at home [phone] [employer]. [address] [place] [address], [place] [address]. All rights reserved. This information is not intended as a substitute for professional medical care. Always follow yourhealthcare professional's instructions. Additional Information VACCINATE! IT SAVES LIVES! Members of the community who have not yet received the COVID-19 vaccine and would like to receive it can visit one of [facility] vaccine clinics. There are many vaccine clinic locations within the [facility]. For locations and available times, please visit www.[email or web address].gov/. It is important to note that some COVID mobile vaccine clinics are held outdoors and may be canceled in rainy or stormy conditions. To learn more about pediatric vaccinations (ages 5-11), we invite you to visit the viavoos webpage. https://www.TAPPs.org/pages/2472-Okrpx-Blrbsbvdzkk-Ugemjcwtpp-Nnfot-Axy stions.htmlTo learn more about the COVID-19 vaccine, we invite you to visit the CDC website for a list of frequently asked questions. https://www.cdc.gov/coronavirus/2019-ncov/vaccines/faq.html Nginx Patient Portal Access Instructions: Stay connected with your healthcare team and access your personal medical information anytime with the [facility] Patient Portal. If you would like a full copy of your medical records please contact the [facility] Medical Records Department Saturday through Saturday between 8a.m. and 4:30p.m. Please follow the directions below to access the portal: 1.Access the email account you provided upon registration to the hospital.2.Look for an invitation email from [facility].3.Open the email and access the invitation link: Accept Invitation to Nginx4.Fill in the required lockwood to create your account. Sign into [email or web address].Scali with your username and password that you [...] you will allow to register on the Nginx Patient Portal for access to your information. You can also access the Nginx Patient Portal on the Mapbar. Simply click on Health Records under Mobilygen and then click on the Freedom2 logo. HOW TO SAFELY DISPOSE OF PRESCRIPTION [...] Call your local pharmacy or go to http://[employer]/[email or web address] to find one close to you.3.Make use of household items: Use cat litter or old coffee grounds to dispose medications if other options arenot available. Mix your drugs with these household products, seal them in an airtight container andthrow it into the garbage. Call [facility]: [phone] to be sure your drugs can be [...] aware that I should contact my doctor. Patient/Office Secretary Signature: Date/Time: Relationship to Patient: Witness Name/Signature: Date/Time: [facility]01-01-2024 Hospital Discharge instructions Patient Education 04/22/2023 [...] move any body part near the wound [phone] [employer]. [address] [place] [address]. All rights reserved. This information is not intended as a substitute for professional medical care. Always follow yourhealthcare professional's instructions. Follow Up Care 04/22/2023 17:44:49 With:Follow up with primary care provider Address:Unknown When:2-4 days [facility] 01-01-2024 Note Discharge Instructions Thank you for allowing [facility] to assist you with your healthcare needs. [...] move any body part near the wound [phone] [employer]. [address] [place] [address]. All rights reserved. This information is not intended as a substitute for professional medical care. Always follow yourhealthcare professional's instructions. Additional Information VACCINATE! IT SAVES LIVES! Members of the community who have not yet received the COVID-19 vaccine and would like to receive it can visit one of [facility] vaccine clinics. There are many vaccine clinic locations within the [facility]. For locations and available times, please visit www.[email or web address]/. It is important to note that some COVID mobile vaccine clinics are held outdoors and may be canceled in rainy or stormy conditions. To learn more about pediatric vaccinations (ages 5-11), we invite you to visit the [facility] webpage. https://www.[facility].org/pages/4876-Oqgfh-Djnfbsfzmgn-Pfevarcsrm-Ttvsg-Rqq stions.htmlTo learn more about the COVID-19 vaccine, we invite you to visit the CDC website for a list of frequently asked questions. https://www.cdc.gov/coronavirus/2019-ncov/vaccines/faq.html [facility] Patient Portal Access Instructions: Stay connected with your healthcare team and access your personal medical information anytime with the [facility] Patient Portal. If you would like a full copy of your medical records please contact the [facility] Medical Records Department Saturday through Saturday between 8a.m. and 4:30p.m. Please follow the directions below to access the portal: 1.Access the email account you provided upon registration to the [facility].2.Look for an invitation email from [facility].3.Open the email and access the invitation link: Accept Invitation to [facility]4.Fill in the required lockwood to create your account. Sign into [email or web address].Scali with your username and password that you [...] you will allow to register on the [facility] Patient Portal for access to your information. You can also access the [facility] Patient Portal on the Alitalia zeinab. Simply click on Health Records under Mobilygen and then click on the Freedom2 logo. HOW TO SAFELY DISPOSE OF PRESCRIPTION [...] Call your local pharmacy or go to http://bit.OnPath Technologies/3R3Uu9p to find one close to you.3.Make use of household items: Use cat litter or old coffee grounds to dispose medications if other options arenot available. Mix your drugs with these household products, seal them in an airtight container andthrow it into the garbage. Call [facility]: [phone] to be sure your drugs can be [...] aware that I should contact my doctor. Patient/Office Secretary Signature: Date/Time: Relationship to Patient: Witness Name/Signature: Date/Time: [facility] [id number] Hospital Discharge instructions Patient Education 02/28/2023 16:40:11 [...] that stimulate the heart. This includes many tmvy-rum-nbojocd cold and sinus decongestant pills and sprays, as well as diet pills. Check the warnings about high blood pressure onthe label. Before buying any zoxc-bnu-ylrwqcc medicines or supplements, always ask the pharmacist [...] one of these at most pharmacies. The [place] [employer] recommends the following guidelines for [...] face You have problems speaking or seeing 2908-1828 [employer]. [address] [place] [address], [place] [address]. All rights reserved. This information is not intended as a substitute for professional medical care. Always follow yourhealthcare professional's instructions. Follow Up Care 02/28/2023 15:25:07 With:Follow up with primary care provider Address:Unknown When:2-4 days Comments:Follow-up with your doctor, be sure to recheck your blood pressure, continue taking blood pressure medicine. Return if any worsening or concerning symptoms. [facility] 11-09-2023 Note Discharge Instructions Thank you for allowing [facility] to assist you with your healthcare needs. [...] that stimulate the heart. This includes many tkre-dog-wzlxbdq cold and sinus decongestant pills and sprays, as well as diet pills. Check the warnings about high blood pressure onthe label. Before buying any kxrl-iac-sjluogr medicines or supplements, always ask the pharmacist [...] one of these at most pharmacies. The [place] [employer] recommends the following guidelines for [...] face You have problems speaking or seeing 5042-3721 [employer]. [address] [place] [address]. All rights reserved. This information is not intended as a substitute for professional medical care. Always follow yourhealthcare professional's instructions. Additional Information VACCINATE! IT SAVES LIVES! Members of the community who have not yet received the COVID-19 vaccine and would like to receive it can visit one of [facility] vaccine clinics. There are many vaccine clinic locations within the [facility]. For locations and available times, please visit www.[email or web address].gov/. It is important to note that some COVID mobile vaccine clinics are held outdoors and may be canceled in rainy or stormy conditions. To learn more about pediatric vaccinations (ages 5-11), we invite you to visit the [facility] webpage. https://www.[facility].org/pages/8672-Lkygh-Bdzdvkisklg-Oxrqjophnu-Odpua-Wcw stions.htmlTo learn more about the COVID-19 vaccine, we invite you to visit the CDC website for a list of frequently asked questions. https://www.cdc.gov/coronavirus/2019-ncov/vaccines/faq.html Nginx Patient Portal Access Instructions: Stay connected with your healthcare team and access your personal medical information anytime with the Nginx Patient Portal. If you would like a full copy of your medical records please contact the [facility] Medical Records Department Saturday through Saturday between 8a.m. and 4:30p.m. Please follow the directions below to access the portal: 1.Access the email account you provided upon registration to the [facility].2.Look for an invitation email from [facility].3.Open the email and access the invitation link: Accept Invitation to [facility]4.Fill in the required lockwood to create your [...] you will allow to register on the [facility] Patient Portal for access to your information. You can also access the [facility] Patient Portal on the Alitalia zeinab. Simply click on Health Records under HealthData and then click on the [facility] logo. [...] Call your local pharmacy or go to http://[employer]/7F0Xh1p to find one close to you.3.Make use of household items: Use cat litter or old coffee grounds to dispose medications if other options arenot available. Mix your drugs with these household products, seal them in an airtight container andthrow it into the garbage. Call [facility]: [phone] to be sure your drugs can be [...] aware that I should contact my doctor. Patient/Office Secretary Signature: Date/Time: Relationship to Patient: Witness Name/Signature: Date/Time: [facility]09-16-2023 Hospital Discharge instructions Patient Education 01/05/2023 [...] for 8 hours and increasing bladder pressure [phone] [employer]. [address] [place] [address]. All rights reserved. This information is not intended as a substitute for professional medical care. Always follow yourhealthcare professional's instructions. Follow Up Care 01/05/2023 01:15:17 With:ZAINA SENIOR MD, [facility] Address: [address] [place] [phone] When:2-4 days [facility] 09-16-2023 Note Discharge Instructions Thank you for allowing [facility] to assist you with your healthcare needs. The following is importantdischarge information regarding your hospital visit. Diagnosis from Today's Visit Flank pain What to Do Next Instructions from Your Care Team No qualifying data available. Post Acute Orders No qualifying data available. You Need to Schedule the Following Appointments Follow Up with ZAINA SENIOR MD, [facility] When Within 2-4 days Where: [address] [place] [phone] Allergies Lexapro Medications Please ask your primary [...] may report side effects to FDA at 0-528-LTR-5488. What other drugs will affect naproxen? Ask [...] drugs may affect naproxen, including prescription and skeh-csi-mehwxgz medicines, vitamins, and herbal products. Not all [...] to ensure that the information provided by [employer]. ('Multum') is accurate, up-to-date, and complete, but no guarantee is made to that effect. Drug information contained herein may be time sensitive. [employer] information has been compiled for use by healthcare practitioners and consumers in the [place] and therefore [employer] does not warrant that uses outside of the [place] are appropriate, unless specifically indicated otherwise. [employer]s drug information does not endorse drugs, diagnose patients or recommend therapy. [employer]s drug information isan informational resource designed to [...] effective or appropriate for any given patient. [employer] does not assume any responsibility for any aspect of healthcare administered with the aid of information [employer] provides. The information contained herein is not intended to cover all possible uses, directions, precautions, warnings, drug interactions, allergic reactions, or adverse effects. If you have questions about the drugs you are taking, check with your doctor, nurse or pharmacist. Copyright 8274-7020 Leaky. Version: 22.. Revision Date: 11/22/2022. tamsulosin (easton [...] may report side effects to FDA at 4-256-EBA-0472. What other drugs will affect tamsulosin? Sometimes [...] may affect tamsulosin. This includes prescription and phac-lwi-ejsmaft medicines, vitamins, and herbal products. Not all [...] to ensure that the information provided by [employer]. ('Multum') is accurate, up-to-date, and complete, but no guarantee is made to that effect. Drug information contained herein may be time sensitive. [employer] information has been compiled for use by healthcare practitioners and consumers in the [place] and therefore [employer] does not warrant that uses outside of the [place] are appropriate, unless specifically indicated otherwise. [employer]s drug information does not endorse drugs, diagnose patients or recommend therapy. [employer]s drug information isan informational resource designed to [...] effective or appropriate for any given patient. [facility] does not assume any responsibility for any aspect of healthcare administered with the aid of information [facility] provides. The information contained herein is not intended to cover all possible uses, directions, precautions, warnings, drug interactions, allergic reactions, or adverse effects. If you have questions about the drugs you are taking, check with your doctor, nurse or pharmacist. Copyright 2623-1969 [facility] Hospital[facility]. Version: 02.20. Revision Date: 07/13/2022. ondansetron (oral) [...] may report side effects to FDA at 1-708-AQK-3655. What other drugs will affect ondansetron? Ondansetron [...] interact with ondansetron. This includes prescription and opui-ooo-djdagdr medicines, vitamins, and herbal products. Give a [...] to ensure that the information provided by [employer]. ('Multum') is accurate, up-to-date, and complete, but no guarantee is made to that effect. Drug information contained herein may be time sensitive. [employer] information has been compiled for use by healthcare practitioners and consumers in the [place] and therefore [employer] does not warrant that uses outside of the [place] are appropriate, unless specifically indicated otherwise. [employer]s drug information does not endorse drugs, diagnose patients or recommend therapy. [employer] drug information isan informational resource designed to [...] effective or appropriate for any given patient. [employer] does not assume any responsibility for any aspect of healthcare administered with the aid of information [employer] provides. The information contained herein is not intended to cover all possible uses, directions, precautions, warnings, drug interactions, allergic reactions, or adverse effects. If you have questions about the drugs you are taking, check with your doctor, nurse or pharmacist. Copyright 0823-9930 [employer]. Version: 16.. Revision Date: 11/22/2022. Education Materials Kidney Stone [...] for 8 hours and increasing bladder pressure [phone] [employer]. [address] [place] [address]. All rights reserved. This information is not intended as a substitute for professional medical care. Always follow yourhealthcare professional's instructions. Additional Information VACCINATE! IT SAVES LIVES! Members of the community who have not yet received the COVID-19 vaccine and would like to receive it can visit one of [facility] vaccine clinics. There are many vaccine clinic locations within the [facility]. For locations and available times, please visit www.[email or web address].[place].gov/. It is important to note that some COVID mobile vaccine clinics are held outdoors and may be canceled in rainy or stormy conditions. To learn more about pediatric vaccinations (ages 5-11), we invite you to visit the [facility] webpage. https://www.[facility].org/pages/3613-Wouff-Cpywiryuzue-Jibeyiglcm-Pfpzd-Vtb stions.htmlTo learn more about the COVID-19 vaccine, we invite you to visit the CDC website for a list of frequently asked questions. https://www.cdc.gov/coronavirus/2019-ncov/vaccines/faq.html [facility] Patient Portal Access Instructions: Stay connected with your healthcare team and access your personal medical information anytime with the [facility] Patient Portal. If you would like a full copy of your medical records please contact the [facility] Medical Records Department Saturday through Saturday between 8a.m. and 4:30p.m. Please follow the directions below to access the portal: 1.Access the email account you provided upon registration to the [facility].2.Look for an invitation email from [facility].3.Open the email and access the invitation link: Accept Invitation to Nginx4.Fill in the required lockwood to create your account. Sign into www.Scali with your username and password that you [...] you will allow to register on the Nginx Patient Portal for access to your information. You can also access the [facility]ginx Patient Portal on the Mapbar. Simply click on Health Records under Mobilygen and then click on the Freedom2 logo. HOW TO SAFELY DISPOSE OF PRESCRIPTION [...] Call your local pharmacy or go to http://[employer]/1X8Np8e to find one close to you.3.Make use of household items: Use cat litter or old coffee grounds to dispose medications if other options arenot available. Mix your drugs with these household products, seal them in an airtight container andthrow it into the garbage. Call [facility]: [phone] to be sure your drugs can be [...] reviewed and explained to me and I,OK GOMZE understand my current condition and have read and understand these discharge instructions. I have received a written copy of the plan/instructions. If I have questions, I am aware that I should contact my doctor. Patient/Office Secretary Signature: Date/Time: Relationship to Patient: Witness Name/Signature: Date/Time: [facility]09-16-2023 Note ORIGINAL EXAMINATION: CT OF THE [...] Sign Date: 01/05/2023 3:04:10 AM [facility] No data available for this section [facility] Evaluation noteNo assessment information available [facility] Work Phone: evaluation note* Diagnosis Onset Date Resolution Status Abscess of left thigh acute [facility] Work Phone: Evaluation note* Diagnosis Onset Date Resolution Status Abscess of left thigh acute Abscess of left thigh acute MRSA (methicillin resistant staph aureus) culture positive acute Osteoarthritis of right knee acute Right knee pain acute [facility] Work Phone: Evaluation note* Diagnosis Onset Date Resolution Status Abscess of left thigh acute MRSA (methicillin resistant staph aureus) culture positive acute Osteoarthritis of right knee acute Right knee pain acute [facility] Work Phone: Evaluation note* Diagnosis Onset Date Resolution Status Osteoarthritis of right knee acute Right knee pain acute [facility] Work Phone: Evaluation note* Diagnosis Onset Date Resolution Status Osteoarthritis of right knee acute [facility] Work Phone: Evaluation note* Diagnosis Onset Date Resolution Status Osteoarthritis of right knee acute Right knee pain acute Lumbar radiculopathy acute Abscess of head acute Abscess acute Abscess acute MRSA (methicillin resistant staph aureus) culture positive acute [facility] Work Phone: [facility] Work Phone: Hospital Discharge instructions Additional Instructions Avoid alcohol, 48 hours worth of a bland diet is recommended. If you still have abdominal discomfort after today, take Pepcid 40 mg once daily for the next week or 2, nausea medicine as prescribed as needed, and follow-up with your doctor.[facility] Work Phone: Hospital Discharge instructions Additional Instructions Your work-up was positive for COVID-19 infection. Chest x-ray negative. Labs are stable. Your blood pressure proved treatment bacteria based level. Take Paxlovid as prescribed. Monitor for any worsening respiratory symptoms. If you can pickers material [employer] pulse oximeter to monitor your pulse ox if less than 88% or worsening symptoms return to the ED for reevaluation. Otherwise follow-up with your PCP.[facility] Work Phone: Reason for referral (narrative)No reason for referral information availableWAultman Hospital Work Phone: Summary note* ARACELY Ballesteros: PERFORM Event Display: Patient Summary Documents Authored Date: [id number] [facility] note* ARACELY Ballesteros: PERFORM Event Display: Patient Summary Documents Authored Date: [id number] [facility] Chief Complaint and Reason for Visit [...] right knee September 02, 2 025 7:45am Chief Complaint Admit Date SORE ON [...] 7:45am Osteoarthritis of right knee September 02, 025 7:45am Abscess of left thigh September [...] 7:45am Osteoarthritis of right knee September 02, 025 7:45am Abscess of left thigh September 03, 2024 1:4 0pm Abscess of left thigh September 10, 2024 7:5 1am Abscess of left thigh September 24, 2024 8:2 8am Bilateral primary osteoarthritis of knee October 08, 2024 1:52pm Gait difficulty October 08, 2024 1:52 pm Chief Complaint Admit Date pain- RIGHT SHOULDER [...] BILATERAL KNEES October 08, 2024 1:52 pm hypoglycemia October 17, 2024 7:30 am Chief Complaint Admit Date BOIL ON LEG July 28, 2024 12:4 3pm BL KNEES September 02, 2024 7:45a m Room 3 September 02, 2024 8:30a m THIGH ABSCESS September 03, 2024 1:40p m WOUND CHECK September 10, 2024 7:51a m WOUND CHECK September 24, 2024 8:28a m BILATERAL KNEES September 24, 2024 9:05a m BILATERAL KNEES October 08, 2024 1:52 pm hypoglycemia October 17, 2024 7:30 am WOUND CHECK October 27, 2024 1:47p m Chief Complaint Admit Date BOIL ON LEG July 28, 2024 12:4 3pm BL KNEES September 02, 2024 7:45a m Room 3 September 02, 2024 8:30a m THIGH ABSCESS September 03, 2024 1:40p m WOUND CHECK September 10, 2024 7:51a m WOUND CHECK September 24, 2024 8:28a m BILATERAL KNEES September 24, 2024 9:05a m BILATERAL KNEES October 08, 2024 1:52 pm hypoglycemia October 17, 2024 7:30 am WOUND CHECK October 27, 2024 1:47p m BILATERAL KNEES October 27, 2024 3:12p m Family History No Family History Records Found Relationship Condition Age at Onset Recorded Date/T hayley father Hypertension Unknown mother Myocardial infarction Unknown Diabetes mellitus Unknown Hypertension Unknown sister Diabetes mellitus Unknown Advance Directives No Advanced Directives Records Found Advance Directive Response Recorded Date/ Time Living Will No June 12 8:09pm Power of Director Of Rehabilitation No June 12, 2021 8:09pm Advance Directive Response Recorded Date/ Time Living Will No February 17 2:48pm Power of Director Of Rehabilitation No February 17, 2022 2:48pm Advance Directive Response Recorded Date/ Time Living Will No April 16 7:51am Power of Director Of Rehabilitation No April 16, 2022 7:51am Advance Directive Response Recorded Date/ Time Living Will No April 16 8:51am Power of Director Of Rehabilitation No April 16, 2022 8:51am Advance Directive Response Recorded Date/ Time Living Will No February 05 8:17am Power of Director Of Rehabilitation No February 05, 2023 8:17am Advance Directive Response Recorded Date/ Time Living Will No February 05 7:17am Power of Director Of Rehabilitation No February 05, 2023 7:17am Advance Directive Response Recorded Date/ Time Living Will No March 18, 023 3:29pm Power of Director Of Rehabilitation No March 18, 2023 3:29pm Advance Directive Response Recorded Date/ Time Living Will No January 30 6:55pm Power of Director Of Rehabilitation No January 31, 2024 6:55pm Living Will No May 15 7:02pm Power of Director Of Rehabilitation No May 15, 2024 7:02pm Advance Directive Response Recorded Date/ Time Living Will No May 15 7:02pm Do you have a Healthcare Power of Director Of Rehabilitation? No May 15, 2024 7:02pm Advance Directive Response Recorded Date/ Time Do you have a Healthcare Power of Director Of Rehabilitation? No October 17, 2024 8:47am Summary Purpose Additional Source Comments Goals (unrecognized [...] Status: Active Member Role Status Dates Dr. Desirea Styles MD Family Provider Active Dr. Alison Reyes MD Primary Care Provider Active Team Status: Inactive Member Role Status Dates Dr. Alison Reyes MD Primary Care Provider, Referr ing Provider Active Collins CEJA, PA Attending Provider Active Team Status: Inactive [...] 03, 2024 End: September 03, 2024 Edna CEJA, PA-C Attending Provider Active Start: September 03, 2024 End: September 03, 2024 Team Status: Inactive Member Role Status Dates Dr. Alison Reyes MD Primary Care Provider Active Start: September 03, 2024 End: September 03, 2024 Edna CEJA, PA-C Attending Provider Active Start: September 03, 2024 End: September 03, 2024 Edna CEJA, PA-C Referring Provider Active Start: September 03, [...] 24, 2024 End: September 24, 2024 Edna CEJA, PA-C Attending Provider Active Start: September 24, [...] 06, 2024 End: October 06, 2024 Dr. Aliosn Reyes MD Attending Provider Active Start: October 06, 2024 End: October 06, 2024 Dr. Alison Reyes MD Referring Provider Active Start: October 06, 2024 End: October 06, 2024 Team Status: Active Member Role/Relationship Status Dates Dr. Alison Reyes MD Primary Care Provider Active Team Status: Inactive Member Role/Relationship Status Dates Dr. Alison Reyes MD Primary Care Provider Active Start: June 24, 2024 End: June 24, 2024 Dr. Alison Reyes MD Attending Provider Active Start: June 24, 2024 End: June 24, 2024 Dr. Alison Reyes MD Referring Provider Active Start: June 24, 2024 End: June 24, 2024 Team Status: Inactive Member Role/Relationship Status Dates Dr. Alison Reyes MD Primary Care Provider Active Start: July 28, 2024 End: July 28, 2024 Dr. Alison Reyes MD Referring Provider Active Start: July 28, 2024 End: July 28, 2024 Edna CEJA PA-C Attending Provider Active Start: July 28, 2024 End: July 28, 2024 Team Status: Inactive Member Role/Relationship Status Dates Dr. Alison Reyes MD Primary Care Provider Active Start: September 02, 2024 End: September 02, 2024 Dr. Alison Reyes MD Referring Provider Active Start: September 02, 2024 End: September 02, 2024 DARNELL Calero Attending Provider Active Start: September 02, 2024 End: September 02, 2024 Team Status: Inactive Member Role/Relationship Status Dates Dr. Alison Reyes MD Primary Care Provider Active Start: September 02, 2024 End: September 02, 2024 Dr. Arden Oviedo MD Attending Provider Active S tart: September 02, 2024 End: September 02, 2024 Team Status: Inactive Member Role/Relationship Status Dates Dr. Alison Reyes MD Primary Care Provider Active Start: September 03, 2024 End: September 03, 2024 Dr. Alison Reyes MD Referring Provider Active Start: September 03, 2024 End: September 03, 2024 Edna CEJA, PA-C Attending Provider Active Start: September 03, 2024 End: September 03, 2024 Team Status: Inactive Member Role/Relationship Status Dates Dr. Alison Reyes MD Primary Care Provider Active Start: September 03, 2024 End: September 03, 2024 Edna Garcia PA, PA-C Attending Provider Active Start: September 03, 2024 End: September 03, 2024 Edna CEJA, PA-C Referring Provider Active Start: September 03, 2024 End: September 03, 2024 Team Status: Inactive Member Role/Relationship Status Dates Dr. Alison Reyes MD Primary Care Provider Active Start: September 10, 2024 End: September 10, 2024 Dr. Alison Reyes MD Referring Provider Active Start: September 10, 2024 End: September 10, 2024 Edna CEJA, PA-C Attending Provider Active Start: September 10, 2024 End: September 10, 2024 Team Status: Inactive Member Role/Relationship Status Dates Dr. Alison Reyes MD Primary Care Provider Active Start: September 24, 2024 End: September 24, 2024 Dr. Alison Reyes MD Referring Provider Active Start: September 24, 2024 End: September 24, 2024 Ednaen CEJA, PA-C Attending Provider Active Start: September 24, 2024 End: September 24, 2024 Team Status: Inactive Member Role/Relationship Status Dates Dr. Alison Reyes MD Primary Care Provider Active Start: September 24, 2024 End: September 24, 2024 Dr. Alison Reyes MD Referring Provider Active Start: September 24, 2024 End: September 24, 2024 DARNELL Calero Attending Provider Active Start: September 24, 2024 End: September 24, 2024 Team Status: Inactive Member Role/Relationship Status Dates Dr. Alison Reyes MD Primary Care Provider Active Start: October 06, 2024 End: October 06, 2024 Dr. Alison Reyes MD Attending Provider Active Start: October 06, 2024 End: October 06, 2024 Dr. Alison Reyes MD Referring Provider Active Start: October 06, 2024 End: October 06, 2024 Team Status: Inactive Member Role/Relationship Status Dates Dr. Alison Reyes MD Primary Care Provider Active Start: October 08, 2024 End: October 08, 2024 Dr. Alison Reyes MD Referring Provider Active Start: October 08, 2024 End: October 08, 2024 DARNELL Calero Attending Provider Active Start: October 08, 2024 End: October 08, 2024 Team Status: Inactive Member Role/Relationship Status Dates Dr. Alison Reyes MD Primary Care Provider Active Start: October 17, 2024 End: October 17, 2024 Dr. Davidson Schulz DO Emergency Provider Active Start: October 17, 2024 End: October 17, 2024 Team Status: Inactive Member Role/Relationship Status Dates Dr. Alison Reyes MD Primary Care Provider Active Start: July 28, 2024 End: July 28, 2024 Dr. Alison Reyes MD Referring Provider Active Start: July 28, 2024 End: July 28, 2024 BETTINA QuintanillaC Attending Provider Active Start: July 28, 2024 End: July 28, 2024 Team Status: Inactive Member Role/Relationship Status Dates Dr. Alison Reyes MD Primary Care Provider Active Start: September 02, 2024 End: September 02, 2024 Dr. Alison Reyes MD Referring Provider Active Start: September 02, 2024 End: September 02, 2024 DARNELL Calero Attending Provider Active Start: September 02, 2024 End: September 02, 2024 Team Status: Inactive Member Role/Relationship Status Dates Dr. Alison Reyes MD Primary Care Provider Active Start: September 02, 2024 End: September 02, 2024 Dr. Arden Oviedo MD Attending Provider Active S tart: September 02, 2024 End: September 02, 2024 Team Status: Inactive Member Role/Relationship Status Dates Dr. Alison Reyes MD Primary Care Provider Active Start: September 03, 2024 End: September 03, 2024 Dr. Alison Reyes MD Referring Provider Active Start: September 03, 2024 End: September 03, 2024 Edna CEJA PA-C Attending Provider Active Start: September 03, 2024 End: September 03, 2024 Team Status: Inactive Member Role/Relationship Status Dates Dr. Alison Reyes MD Primary Care Provider Active Start: September 03, 2024 End: September 03, 2024 Edna CEJA PA-C Attending Provider Active Start: September 03, 2024 End: September 03, 2024 Edna CEJA PA-C Referring Provider Active Start: September 03, 2024 End: September 03, 2024 Team Status: Inactive Member Role/Relationship Status Dates Dr. Alison Reyes MD Primary Care Provider Active Start: September 10, 2024 End: September 10, 2024 Dr. Alison Reyes MD Referring Provider Active Start: September 10, 2024 End: September 10, 2024 Edna CEJA PA-C Attending Provider Active Start: September 10, 2024 End: September 10, 2024 Team Status: Inactive Member Role/Relationship Status Dates Dr. Alison Reyes MD Primary Care Provider Active Start: September 24, 2024 End: September 24, 2024 Dr. Alison Reyes MD Referring Provider Active Start: September 24, 2024 End: September 24, 2024 Edna CEJA PA-C Attending Provider Active Start: September 24, 2024 End: September 24, 2024 Team Status: Inactive Member Role/Relationship Status Dates Dr. Alison Reyes MD Primary Care Provider Active Start: September 24, 2024 End: September 24, 2024 Dr. Alison Reyes MD Referring Provider Active Start: September 24, 2024 End: September 24, 2024 DARNELL Calero Attending Provider Active Start: September 24, 2024 End: September 24, 2024 Team Status: Inactive Member Role/Relationship Status Dates Dr. Alison Reyes MD Primary Care Provider Active Start: October 06, 2024 End: October 06, 2024 Dr. Alison Reyes MD Attending Provider Active Start: October 06, 2024 End: October 06, 2024 Dr. Alison Reyes MD Referring Provider Active Start: October 06, 2024 End: October 06, 2024 Team Status: Inactive Member Role/Relationship Status Dates Dr. Alison Reyes MD Primary Care Provider Active Start: October 08, 2024 End: October 08, 2024 Dr. Alison Reyes MD Referring Provider Active Start: October 08, 2024 End: October 08, 2024 DARNELL Calero Attending Provider Active Start: October 08, 2024 End: October 08, 2024 Team Status: Inactive Member Role/Relationship Status Dates Dr. Alison Reyes MD Primary Care Provider Active Start: October 17, 2024 End: October 17, 2024 Dr. Davidson Schulz DO Attending Provider Active Start: October 17, 2024 End: October 17, 2024 Dr. Davidson Schulz DO Emergency Provider Active Start: October 17, 2024 End: October 17, 2024 Team Status: Inactive Member Role/Relationship Status Dates Dr. Alison Reyes MD Primary Care Provider Active Start: October 27, 2024 End: October 27, 2024 Dr. Alison Reyes MD Referring Provider Active Start: October 27, 2024 End: October 27, 2024 Edna CEJA PA-C Attending Provider Active Start: October 27, 2024 End: October 27, 2024 Team Status: Inactive Member Role/Relationship Status Dates Dr. Alison Reyes MD Primary Care Provider Active Start: October 27, 2024 End: October 27, 2024 Dr. Alison Reyes MD Referring Provider Active Start: October 27, 2024 End: October 27, 2024 DARNELL Calero Attending Provider Active Start: October 27, 2024 End: October 27, 2024 (unrecognized sect ion and content) No Status Records FoundNo Status Records FoundNo Status Records Found INFORMATION SOURCE (unrecogn ized section and content) DATE CREATED AUTHOR 08/08/2023 [facility] DATE CREATED AUTHOR AUTHOR'S ORGANIZ ATION 09/09/2024 [facility] DATE CREATED AUTHOR AUTHOR'S ORGANIZ ATION 01/27/2025 [facility] FOR RECORDS PERTAINING TO PATIENTS [...] BE BASED ON THE PRIMARY CLINICAL RECORDS. [employer] provides no warranty or guarantee of the accuracy or completeness of information in this document.
== END 2025-02-09 19:06 | disposition home or self-care (01) ==
PROVIDERS: Emergency Provider Surgery; PCP Family Medicine; Visit Provider Surgery
DX: M79.10 Myalgia, unspecified site (principal); E11.9 Type 2 diabetes mellitus without complications; Z79.4 Long term (current) use of insulin; M79.601 Pain in right arm; M79.604 Pain in right leg; E78.5 Hyperlipidemia, unspecified; I10 Essential (primary) hypertension; G47.33 Obstructive sleep apnea (adult) (pediatric); Z99.89 Dependence on other enabling machines and devices; Z79.84 Long term (current) use of oral hypoglycemic drugs; F41.9 Anxiety disorder, unspecified; Z79.899 Other long term (current) drug therapy; E03.9 Hypothyroidism, unspecified; Z79.890 Hormone replacement therapy
CPT/HCPCS: 99283